=== PATIENT | male | born 2000 | race Caucasian/White ===

== ENCOUNTER 2024-09-25 09:40 | Outpatient (CLI) | payer MEDICAID, SELFPAY ==
[2024-09-25 10:19] LABS: Absolute Lymphocyte Count 1.52 X10^3/uL (0.83-4.51); Absolute Neutrophil Count 2.9 X10^3/uL (2.0-7.7); Basophil# 0.02 X10^3/uL; Basophil% 0.4 % (0-1); Eosinophil# 0.04 X10^3/uL; Eosinophils% 0.8 % (0-5); Hematocrit 45.5 % (40-54); Hemoglobin 16.2 g/dL (13.0-16.5); Lymphocyte # 1.52 X10^3/ul (0.83-4.51); Mean Corp Hgb Conc 35.6 g/dL (32-36); Mean Corpuscular Hgb 30.3 pg (27.0-32.0); Mean Corpuscular Volume 85.2 fL (80-94); Mean Platelet Vol. 8.6 fl (6.2-12.0); Monocyte# 0.41 X10^3/uL; Monocyte% 8.4 % (0-10); NRBC Flagged by Analyzer 0 % (0-5); Neutrophil % 59.2 % (47-70); Platelet Count 184 K/mm3 (150-450); RBC Distribution Width CV 12.2 % (11.6-14.6); RBC Distribution Width SD 37.8 fl (35.1-43.9); Red Blood Count 5.34 M/mm3 (4.6-6.2); Reticulocyte Count 0.36 % (0.5-1.5); White Blood Count 4.9 K/mm3 (4.4-11.0)
[2024-09-25 10:22] LABS: Erythrocyte Sedimentation Rate 5 mm/hr (0-20)
[2024-09-25 11:15] LABS: ALB/GLOB Ratio 1.6 RATIO (0.9-2.4); AST(SGOT) 38 U/L (<=37); Alanine Aminotransfer ALT/SGPT 35 U/L (<=46); Albumin, Serum 4.9 g/dL (3.5-5.0); Alkaline Phosphatase 63 U/L (40-129); Anion Gap 13 (5-15); BUN 12 mg/dL (4-19); BUN/Creat Ratio 12.7 RATIO (10-20); Calcium,Total 9.7 mg/dL (7.6-11.0); Carbon Dioxide 23.1 mmol/L (21.0-32.0); Chloride 101 mmol/L (98-108); Creatinine, Serum 0.97 mg/dL (0.70-1.20); EST Glomerular Filtration Rate 112 (>60); Ferritin 273 ng/mL (37-417); Globulin 3.1 g/dL (2.2-4.2); Glucose 86 mg/dL (70-99); Potassium 3.9 mmol/L (3.3-5.1); Sodium Level 138 mmol/L (133-145); Thyroid Stim Hormone (TSH) 0.283 uIU/mL (0.300-4.200); Total Bilirubin 1.04 mg/dL (0.00-1.30); Vitamin B12 484 pg/mL (180-914)
[2024-09-25 11:44] LABS: CRP 3.56 mg/L (0.0-3.0); Iron 198 ug/dL (65-175); LDH 185 U/L (87-241); Magnesium 2.2 mg/dL (1.5-2.2); Phosphorus 1.7 mg/dL (2.7-4.5)
[2024-10-03 10:08] LABS: Alternaria alternata <0.10 kU/L (Class 0); Anti-Mitochondrial AB <20.0 Units (0.0-20.0); Beef <0.10 kU/L (Class 0); Bermuda Grass <0.10 kU/L (Class 0); Bluegrass, Kentucky <0.10 kU/L (Class 0); Cat Hair/Dander, Standard <0.10 kU/L (Class 0); Chocolate <0.10 kU/L (Class 0); Codfish <0.10 kU/L (Class 0); Corn <0.10 kU/L (Class 0); D farinae Mite 0.37 kU/L (Class I); D pteronyssinus 0.25 kU/L (Class 0/I); Dog Epithelia <0.10 kU/L (Class 0); Egg, Whole <0.10 kU/L (Class 0); Elm, American White <0.10 kU/L (Class 0); Milk (Cow) <0.10 kU/L (Class 0); Mouse Urine <0.10 kU/L (Class 0); Mussels <0.10 kU/L (Class 0); Oak, White <0.10 kU/L (Class 0); Peanut <0.10 kU/L (Class 0); Plantain, English <0.10 kU/L (Class 0); Pork <0.10 kU/L (Class 0); Ragweed, Short/Common <0.10 kU/L (Class 0); Salmon <0.10 kU/L (Class 0); Shrimp <0.10 kU/L (Class 0); Soybean <0.10 kU/L (Class 0); Tuna <0.10 kU/L (Class 0); Vitamin D 1,25-Dihydroxy 72.1 pg/mL (24.8-81.5); Wheat <0.10 kU/L (Class 0)
[2024-10-03 19:07] LABS: Albumin 4.3 g/dL (2.9-4.4); Alpha-1-Globulins 0.2 g/dL (0.0-0.4); Alpha-2-Globulins 0.7 g/dL (0.4-1.0); Angiotensin Convert Enzyme 72 U/L (14-82); Anti-Smooth Muscle ABS 6 Units (0-19); Cytoplasmic Ab (C-ANCA) <1:20 titer (Neg:<1:20); Endomysial Antibody IgA Negative (Negative); Gamma Globulin 1.1 g/dL (0.4-1.8); HEPATITIS B SURFACE AG Negative (Negative); Haptoglobin 111 mg/dL (17-317); Hep C Antibodies Non Reactive (Non Reactive); Hepatitis A IgM Antibody Negative (Negative); Hepatitis B Core AB IgM Negative (Negative); IgG, Quant 1117 mg/dL (603-1613); Immunoglobulin A 141 mg/dL (90-386); Immunoglobulin E 79 IU/mL (6-495); Immunoglobulin G, Subclass 1 607 mg/dL (248-810); Immunoglobulin G, Subclass 2 197 mg/dL (130-555); Immunoglobulin G, Subclass 3 62 mg/dL (15-102); Immunoglobulin G, Subclass 4 30 mg/dL (2-96); Immunoglobulin M 82 mg/dL (20-172); PROEL- TOTAL PROTEIN 7.3 g/dL (6.0-8.5); Perinuclear Ab (P-ANCA) <1:20 titer (Neg:<1:20); QNTFERON TB Mitogen Value > 10.00 IU/mL (.); QNTFERON TB Nil Value 0.06 IU/mL (.); QNTFERON TB1+ Ag Value 0.05 IU/mL (.); QNTFERON TB2+ Ag Value 0.06 IU/mL (.); QNTIFERON TB Positive Criteria Negative (Negative); t-Transglutaminase IgA <2 U/mL (0-3)
== END 2024-09-25 23:59 | disposition home or self-care (01) ==
LOC: LAB 09:43
PROVIDERS: PCP Nurse Practitioner Family; Referring Provider Internal Medicine Gastroenterology; Visit Provider Internal Medicine Gastroenterology
DX: K50.90 Crohn's disease, unspecified, without complications (principal)
CPT/HCPCS: 80053; 80074; 82164; 82607; 82652; 82728; 82784; 82785; 82787; 83010; 83516; 83540; 83615; 83735; 84100; 84165; 84443; 85025; 85045; 85652; 86003; 86005; 86037; 86140; 86255; 86334; 86480

== ENCOUNTER → 2024-10-04 | Outpatient (CLI) | payer MEDICAID, SELFPAY ==
[2024-10-06 07:08] LABS: Calprotectin, Stool 27 ug/g (0-120); Fats, Neutral Normal (.); Fats, Total Normal (.)
[2024-10-06 15:08] LABS: Pancreatic Elastase, Fecal > 800 (>200)
== END | disposition home or self-care (01) ==
LOC: LABSPEC 09:47
PROVIDERS: PCP Nurse Practitioner Family; Referring Provider Internal Medicine Gastroenterology; Visit Provider Internal Medicine Gastroenterology
DX: K58.9 Irritable bowel syndrome, unspecified (principal)
CPT/HCPCS: 82274; 82653; 82705; 83630; 83993; 87506

== ENCOUNTER 2024-10-16 10:28 | Day surgery (SDC) | payer MEDICAID, SELFPAY ==
[2024-10-16] VITALS (8 sets, daily range): BP systolic 88–118; BP diastolic 55–87; PULSE 61–117; RESP 12–16; TEMP 36.4–37.1; O2SAT 96–98; BMI 22.6
--- NOTE | 2024-10-16 10:32 | PCM.PRE.AN2 ---
ASA Classification* ASA Classification ASA Classification: 2 Assessment & Plan Anesthesia* Anesthesia Assessment Anesthesia Assessment: Discussed sedation and/or anesthesia options, risks, benefits, and alternatives with patient/parents/legal guardian/POA. Questions invited. The patient/parents/legal guardian/POA seems to understand and agrees to proceed with anesthesia plan. Reviewed the physical assessment, medical history, allergy history and patient home medications list prior to surgery/procedure/anesthetic and documented any changes. Performed airway and anesthesia risk assessments. Anesthesia Type Anesthesia Type: MAC Anesthesia Focused Assessment* Airway Assessment Mouth opens: >3 cm Mallampati Score: II Focused Labs Anesthesia Preop lab: CBC WBC 4.9 K/mm3 (4.4-11.0) 09/25/24 09:51 09/25/24 RBC 5.34 M/mm3 (4.6-6.2) 09/25/24 09:51 09/25/24 Hgb 16.2 g/dL (13.0-16.5) 09/25/24 09:51 09/25/24 Hct 45.5 % (40-54) 09/25/24 09:51 09/25/24 Plt Count 184 K/mm3 (150-450) 09/25/24 09:51 09/25/24 CHEMISTRY Potassium 3.9 mmol/L (3.3-5.1) 09/25/24 09:51 09/25/24 Sodium 138 mmol/L (133-145) 09/25/24 09:51 09/25/24 Magnesium 2.2 mg/dL (1.5-2.2) 09/25/24 09:51 09/25/24 Phosphorus 1.7 mg/dL (2.7-4.5) L 09/25/24 09:51 09/25/24 BUN 12 mg/dL (4-19) 09/25/24 09:51 09/25/24 Creatinine 0.97 mg/dL (0.70-1.20) 09/25/24 09:51 09/25/24 Glucose 86 mg/dL (70-99) 09/25/24 09:51 09/25/24 TSH 0.283 uIU/mL (0.300-4.200) L 09/25/24 09:51 09/25/24 COAG Pre-Assessment Diagnosis/Proposed Procedure Planned Operative Procedure(s): CSCOPE/EGD Anesthesia History Anesthesia History - [employer]: Anesthesia History - [employer] Hx Hospitalization No 10/10/24 16:27 Any Problems With Anesthesia No 10/10/24 16:27 Cholinesterase deficiency No 10/10/24 16:27 You/Your Family Experience No 10/10/24 16:27 fever (hyperthermia) with Relationship Recent Exposure to Contagious Disease Does patient have nerve No 10/10/24 16:27 stimulator Patient instructed to have device shut off --Does patient have Pacemaker or ICD? When Was Last Pacemaker Check QUESTION #4 FULL TEXT: You/Your Family Experience fever (hyperthermia) with Anesthesia Last Oral Intake Last Oral intake: Last Oral Intake NPO since Meds taken in AM with sips of water? Meds patient instructed to take am of surgery PONV PONV - [employer]: PONV - [employer] Female No 10/10/24 16:27 HX of Motion Sickness No 10/10/24 16:27 HX of N/V After Surgery No 10/10/24 16:27 Non-Smoker Yes 10/10/24 16:27 Duration of Surgery greater No 10/10/24 16:27 than 60 minutes Number of Risk Factors 1 10/10/24 16:27 PONV Score Low Risk 10/10/24 16:27 Respiratory Assessment Respiratory Assessment - [employer]: Respiratory Tract Infection Hx - [employer] Hx Respiratory Tract Infection No 10/10/24 16:27 STOP Sleep Apnea STOP Sleep Apnea - [employer]: STOP Sleep Apnea - [employer] Hx Hypertension No 10/10/24 16:27 Hx Sleep Apnea No 10/10/24 16:27 CPAP BIPAP Do you snore loudly (louder No 10/10/24 16:27 than talking or can be heard Do you often feel tired/ No 10/10/24 16:27 fatigued/ sleepy during daytime? Has anyone observed you stop No 10/10/24 16:27 breathing during sleep? STOP Results Negative 10/10/24 16:27 QUESTION #5 FULL TEXT : Do you snore loudly (louder than talking or can be heard through closed doors)? Tobacco Use History Tobacco Use History - [employer]: Tobacco Use History - [employer] Tobacco Use Smoking Status Never smoker 10/10/24 16:27 Hx Tobacco Use No 10/10/24 16:27 Years Smoking Packs Smoked per Day Smoking Cessation Date was within the last 15 years Hx Smoking Cessation Date Hx Smoking Cessation Counseling Hematologic Medial History Hematologic Hx - [employer]: Hematologic Medical Hx - provider contracting consultant Hx of Blood Transfusion No 10/10/24 16:27 Hx of Transfusion in last 3 No 10/10/24 16:27 Months Date of Last Transfusion (if within last 3 months) Ever experience any problems No 10/10/24 16:27 with transfusion(s)? Specify any problems Hx of Preganancy in last 3 N/A 10/10/24 16:27 Months Nurse Filling Out Transfusion DSCHRIBER 10/10/24 16:27 & Questions: Date: 10/10/24 10/10/24 16:27 Time: 16:28 10/10/24 16:27 Patient unable to answer at this time (ie. confused, unrespo /Reproduction History /Reproductive History - [employer]: /Reproductive Hx- [employer] Hx Now No 10/10/24 16:27 Gestational Age (in weeks): EDC: Hx Hx Para Hx Section SAB No 10/10/24 16:27 PFSH Medical History History of steroid therapy Dietary restriction History of colitis History of Crohn's disease History of IBS Gastric reflux Non-smoker Hx of fracture of arm History of ganglion cyst Rheumatoid arthritis Home Medications ?Medication ?Instructions ?Recorded ?Last Taken ?Type cetirizine 10 mg capsule (Zyrtec) 10 mg PO QDAY 09/25/24 Unknown History cholecalciferol (vitamin D3) 1,250 1,250 mcg PO QWEEK 09/25/24 Unknown History mcg (50,000 unit) capsule mesalamine 0.375 gram 1.125 g PO BID 09/25/24 Unknown History capsule,extended release 24 hr nabumetone 500 mg tablet 1,000 mg PO QDAY 09/25/24 Unknown History omeprazole 20 mg capsule,delayed 20 mg PO QDAY 09/25/24 Unknown History release promethazine 12.5 mg tablet 12.5 mg PO Q6H PRN nausea and 09/25/24 Unknown History vomiting rituximab 10 mg/mL See Rx Instructions .Route .COMPLEX 09/25/24 Unknown History concentrate,intravenous ustekinumab 90 mg/mL subcutaneous 90 mg subcut Q5W 09/25/24 Unknown History syringe (Stelara) Allergy/AdvReac Type Severity Reaction Status Date / Time No Known Allergies Allergy Verified 10/10/24 16:25 Family History Sister Anxiety Mother Arthritis Grandmother Arthritis Autoimmune disorder Hypertension Hyperlipemia Grandfather COPD (chronic obstructive pulmonary disease) Aunt Breast cancer Depression Surgical History History of shoulder surgery History of esophagogastroduodenoscopy (EGD) Hx of colonoscopy Social History Smoking Status: Never smoker alcohol intake: never substance use type: marijuana what type of physical activity do you participate in: other details: physical therapy Review of Systems (Anesthesia) ROS Narrative System reviewed and no additional complaints, except as documented.
--- NOTE | 2024-10-16 11:30 | EGD_PTH ---
PATIENT: DIEGO RICE LOC: EN U#:[id number] AGE/SX: 24/M ROOM: RE10/16/[address]: Dr. Hunter Ceja DO : 2000 BED: DIS: 10/16/2024 SPEC #: [id number] RECD: 10/16/24 14:33 STATUS: BRAYAN REJacky #: [id number] MELVIN: 10/16/24 11:[address]: Hunter Ceja DEPT: SURGICAL PATHOLOGY RECD BY: Osmin Kline ENTERED: 10/16/24 14:33 SP TYPE: EGD BIOPSY ARNAV DR: Ana Kan, CAR FERRIER-C Tissues: A - Duodenum, NOS B - Gastric mucous membrane C - COLON BIOPSY Procedures: Immunohistochemical Stains Surgery Specimen Level IV HEADER OPERATION: Colonoscopy, EGD biopsy PRE-OP DIAGNOSIS: Crohn's disease TISSUE SUBMITTED: A- Duodenum biopsy, B- Gastric body biopsy, C- Colonic stricture biopsy MICROSCOPIC DIAGNOSIS A. Small bowel, duodenum, biopsy: * Small bowel mucosa with no pathologic change B. Stomach, gastric body, biopsy: * Oxyntic mucosa with mild chronic inflammation * No morphologic evidence of Helicobacter pylori organisms on H&E or immunostained sections C. Colon, stricture, biopsy: * Benign colonic mucosa with no pathologic change MICROSCOPIC DESCRIPTION Slides are reviewed. These tests were developed and their performance characteristics determined by [facility]. They may not have been cleared or approved by the U.S. Food and Drug Administration. The FDA has determined that such clearance or approval is not necessary. The above immunohistochemical/dualISH markers are ordered and reviewed by the Pathologist. GROSS DESCRIPTION A. Received in formalin in a container labeled with the patient's name, date of , and duodenum biopsy are 2 haley-pink fragments of mucosal tissue, each measuring 0.6 x 0.2 x 0.2 cm. Submitted in toto in A1. B. Received in formalin in a container labeled with the patient's name, date of , and gastric body biopsy are multiple haley-pink fragments of mucosal tissue measuring 0.6 x 0.4 x 0.2 cm in aggregate. Submitted in toto in B1. C. Received in formalin in a container labeled with the patient's name, date of , and colonic stricture biopsy are 3 haley-pink fragments of mucosal tissue ranging from 0.4 x 0.2 x 0.2 cm to 0.5 x 0.4 x 0.3 cm. Submitted in toto in C1. B 10/17/2024 CPT:40643n3,61110
--- NOTE | 2024-10-16 11:32 | PCM.HP.STD ---
HPI - General General Date of Admission: 10/16/24 Date of Service: 10/16/24 Chief Complaint: abdominal pain and crohn's disease HPI Narrative MC RICE, is a 24 M who presents for the evaluation of his crohns disease. *[facility] established 09.25.24 pt presents today to transfer care from [facility]. Pt has a long history of IBD and RA. Pt reports he was diagnosed with RA when he was 3 and is taking Rituximab infusions for this. Pt was diagnosed with IBD around 2018 and is on Mesalamine and Stelara Q5W. Pt reports his last colonoscopy was [id number]. Reports he has flares every few months. Pt reports daily nausea. States that he has alternating bowel movements and states that when he gets constipated that usually means he is about to have a flare. [facility] Medical History History of steroid therapy Dietary restriction History of colitis History of Crohn's disease History of IBS Gastric reflux Non-smoker Hx of fracture of arm History of ganglion cyst Rheumatoid arthritis Home Medications ?Medication ?Instructions ?Recorded ?Last Taken ?Type cetirizine 10 mg capsule (Zyrtec) 10 mg PO QDAY 09/25/24 Unknown History cholecalciferol (vitamin D3) 1,250 1,250 mcg PO QWEEK 09/25/24 Unknown History mcg (50,000 unit) capsule mesalamine 0.375 gram 1.125 g PO BID 09/25/24 10/16/24 History capsule,extended release 24 hr nabumetone 500 mg tablet 1,000 mg PO QDAY 09/25/24 Unknown History omeprazole 20 mg capsule,delayed 20 mg PO QDAY 09/25/24 Unknown History release promethazine 12.5 mg tablet 12.5 mg PO Q6H PRN nausea and 09/25/24 Unknown History vomiting rituximab 10 mg/mL See Rx Instructions .Route .COMPLEX 09/25/24 Unknown History concentrate,intravenous ustekinumab 90 mg/mL subcutaneous 90 mg subcut Q5W 09/25/24 Unknown History syringe (Stelara) Allergy/AdvReac Type Severity Reaction Status Date / Time No Known Allergies Allergy Verified 10/16/24 10:42 Family History Sister Anxiety Mother Arthritis Grandmother Arthritis Autoimmune disorder Hypertension Hyperlipemia Grandfather COPD (chronic obstructive pulmonary disease) Aunt Breast cancer Depression Surgical History History of shoulder surgery History of esophagogastroduodenoscopy (EGD) Hx of colonoscopy Social History Smoking Status: Never smoker alcohol intake: never substance use type: marijuana what type of physical activity do you participate in: other details: physical therapy ROS Constitutional Constitutional: Denies fatigue, fever(s), poor appetite, weight gain or weight loss Gastrointestinal Gastrointestinal: Denies belching, bloating, change in bowel habits, change in stool character, chewing difficulty, coffee ground emesis, constipation, cramping, diarrhea, dyspepsia, dysphagia, early satiety, excessive flatus, fecal incontinence, heartburn, hematemesis, hematochezia, hemorrhoids, loose stools, melena, nausea, odynophagia, rectal bleeding, tenesmus, vomiting or weight changes Vital Signs Vital Signs Vital Signs: 10/16/24 10:45 10/16/24 10:45 Temperature 98.7 F Temperature Source Temporal Pulse Rate 117 H Respiratory Rate 16 Respiratory Pattern Normal Blood Pressure 118/87 H Blood Pressure Mean 97 Blood Pressure Source Monitor Blood Pressure Position Sitting Blood Pressure Location Left Arm Pulse Ox 98 Oxygen Delivery Method Room Air Weight Weight: 171 lb 15.369 oz Body Mass Index (BMI) 22.6 Physical Exam Const alert, oriented x3, no apparent distress and healthy appearing General Appearance: cooperative GI normal to inspection, nondistended, normoactive bowel sounds, soft to palpation, non-tender and non-distended Percussion: normal to percussion Rectal Exam: deferred Assessment & Plan Assessment/Plan (1) Crohn disease: PLAN: Assessment and Plan Assessment and Plan (1) Crohn disease: Status: Acute Plan: Mc is a pleasant 24-year-old with a longstanding history of complicated rheumatoid arthritis which was diagnosed at the age of 3. He is currently on rituximab therapy every 6 months. 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 As per his mother and the patient he has been on biologic therapy and 5-ASA's. As per his mother he has been really struggling with weight loss and maintaining his weight. He stays away from mostly all fiber containing foods. He is not having any rashes, lesion, jaundice, headaches, fatigue and is currently having 1 bowel movement a day. His last ESR was 6 and his CRP was 3. He has no family history of inflammatory bowel disease. He has not had any abdominal surgeries. He has but never been diagnosed with obstruction. He has not been diagnosed with a fistula. He does not have any prior blood per rectum. He does not use any street drugs. Currently at this time he is on rituximab for his rheumatoid arthritis. He also gets intermittent steroids that infusion. He is on Stelara every 5 weeks for his inflammatory bowel disease. He has not had a colonoscopy since 2020. Patient says he enterography is in the past. He has not been diagnosed of any vitamin deficiencies or anemia. 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
--- NOTE | 2024-10-16 12:21 | OP.EGD_ITS ---
Patient Name: Mc Goodson Procedure Date: 10/16/2024 11:43 AM Date of : 2000 Age: 24 Procedure: Upper GI endoscopy Indications: Epigastric abdominal pain, Functional Dyspepsia Providers: Hunter Ceja DO Referring MD: Nati Vasquez Medicines: Monitored Anesthesia Care Patient Profile: This is a 24 year old male. Refer to note in patient chart for documentation of history and physical. Patient has symptoms of chronic epigastric abdominal pain. Complications: No immediate complications. Procedure: Pre-Anesthesia Assessment: - Prior to the procedure, a History and Physical was performed, and patient medications and allergies were reviewed. The patient is competent. The risks and benefits of the procedure and the sedation options and risks were discussed with the patient. All questions were answered and informed consent was obtained. Patient identification and proposed procedure were verified by the physician in the pre-procedure area. Mental Status Examination: alert and oriented. Airway Examination: normal oropharyngeal airway and neck mobility. Respiratory Examination: clear to auscultation. CV Examination: normal. Prophylactic Antibiotics: The patient does not require prophylactic antibiotics. Prior Anticoagulants: The patient has taken no anticoagulant or antiplatelet agents except for NSAID medication. ASA Grade Assessment: II - A patient with mild systemic disease. After reviewing the risks and benefits, the patient was deemed in satisfactory condition to undergo the procedure. The anesthesia plan was to use monitored anesthesia care (MAC). Immediately prior to administration of medications, the patient was re-assessed for adequacy to receive sedatives. The heart rate, respiratory rate, oxygen saturations, blood pressure, adequacy of pulmonary ventilation, and response to care were monitored throughout the procedure. The physical status of the patient was re-assessed after the procedure. After obtaining informed consent, the endoscope was passed under direct vision. Throughout the procedure, the patient's blood pressure, pulse, and oxygen saturations were monitored continuously. The Colonoscope was introduced through the mouth, and advanced to the third part of the duodenum. Small bowel enteroscopy was deemed necessary. The upper GI endoscopy was accomplished without difficulty. The patient tolerated the procedure well. Scope In: 11:50:15 AM Scope Out: 11:53:20 AM Total Procedure Duration Time 0 hours 3 minutes 5 seconds Findings: The examined esophagus was normal. Patchy mildly erythematous mucosa without bleeding was found in the gastric body. Biopsies were taken with a cold forceps for histology. Verification of patient identification for the specimen was done. Estimated blood loss was minimal. Biopsies were taken with a cold forceps for Helicobacter pylori testing. Verification of patient identification for the specimen was done. Estimated blood loss was minimal. Patchy mildly erythematous mucosa without active bleeding and with no stigmata of bleeding was found in the duodenal bulb and in the second portion of the duodenum. Biopsies were taken with a cold forceps for histology. Verification of patient identification for the specimen was done. Estimated blood loss was minimal. Impression: - Normal esophagus. - Erythematous mucosa in the gastric body. Biopsied. - Erythematous duodenopathy. Biopsied. Recommendation: - Discharge patient to home. - Resume previous diet. - Continue present medications. - Await pathology results. Procedure Code(s): --- Professional --- 17744, Small intestinal endoscopy, enteroscopy beyond second portion of duodenum, not including ileum; with biopsy, single or multiple CPT copyright 2021 [employer]. All rights reserved. The codes documented in this report are preliminary and upon certified professional coder review may be revised to meet current compliance requirements. Hunter Ceja DO 10/16/2024 12:21:14 PM This report has been signed electronically. Number of Addenda: 0 Note Initiated On: 10/16/2024 11:43 AM
--- NOTE | 2024-10-16 12:22 | OP.CCLET_ITS ---
10/16/2024 Nati Vasquez Re : Upper GI endoscopy procedure for Mc Goodson Dear Loreta This procedure was performed on Wednesday, October 16, 2024. My impressions and recommendations are as follows: Impressions : - Normal esophagus. - Erythematous mucosa in the gastric body. Biopsied. - Erythematous duodenopathy. Biopsied. Recommendations : - Discharge patient to home. - Resume previous diet. - Continue present medications. - Await pathology results. My findings are described in the full procedure note, which is enclosed. If I can be of further assistance, please feel free to contact me at . Sincerely, Hunter Ceja, 10/16/2024 12:21:14 PM This report has been signed electronically.
--- NOTE | 2024-10-16 12:35 | PCM.POST.ANE ---
Anesthesia: Postop Eval I Current Vital Signs Temperature: 97.6 F Pulse Rate: 62 Blood Pressure: 88/55 Respiratory Rate: 16 Pulse Ox: 97 Oxygen Delivery Method: Room Air Assessment Airway patent: Yes Spontaneous unlabored respirations: Yes Mental status: Asleep nausea: No Vomiting: No Anesthesia Complication: No Fluid Hydration Crystalloid volume administer (ml): 90 Total IV fluid infused: 90 Progress Note Anesthesia document: Postop Eval 1 completed: Yes
--- NOTE | 2024-10-16 13:02 | OP.CCLET_ITS ---
10/16/2024 Nati Vasquez Re : Colonoscopy procedure for Mc Goodson Dear Loreta This procedure was performed on Wednesday, October 16, 2024. My impressions and recommendations are as follows: Impressions : - Stricture in the cecum. Biopsied. Recommendations : - Discharge patient to home. - Resume previous diet. - Continue present medications. - Await pathology results. - Repeat colonoscopy for surveillance based on pathology results. My findings are described in the full procedure note, which is enclosed. If I can be of further assistance, please feel free to contact me at . Sincerely, Hunter Ceja, 10/16/2024 1:01:34 PM This report has been signed electronically.
--- NOTE | 2024-10-16 13:02 | OP.COLON_ITS ---
Patient Name: Mc Goodson Procedure Date: 10/16/2024 11:53 AM Date of : 2000 Age: 24 Procedure: Colonoscopy Indications: Crohn's disease of the small bowel and colon Providers: Hunter Ceja DO Referring MD: Nati Vasquez Medicines: Monitored Anesthesia Care Patient Profile: This is a 24 year old male. Refer to note in patient chart for documentation of history and physical. Patient has symptoms of chronic epigastric abdominal pain. Last Colonoscopy: more than 3 years ago. Complications: No immediate complications. Procedure: Pre-Anesthesia Assessment: - Prior to the procedure, a History and Physical was performed, and patient medications and allergies were reviewed. The patient is competent. The risks and benefits of the procedure and the sedation options and risks were discussed with the patient. All questions were answered and informed consent was obtained. Patient identification and proposed procedure were verified by the physician in the pre-procedure area. Mental Status Examination: alert and oriented. Airway Examination: normal oropharyngeal airway and neck mobility. Respiratory Examination: clear to auscultation. CV Examination: normal. Prophylactic Antibiotics: The patient does not require prophylactic antibiotics. Prior Anticoagulants: The patient has taken no anticoagulant or antiplatelet agents except for NSAID medication. ASA Grade Assessment: II - A patient with mild systemic disease. After reviewing the risks and benefits, the patient was deemed in satisfactory condition to undergo the procedure. The anesthesia plan was to use monitored anesthesia care (MAC). Immediately prior to administration of medications, the patient was re-assessed for adequacy to receive sedatives. The heart rate, respiratory rate, oxygen saturations, blood pressure, adequacy of pulmonary ventilation, and response to care were monitored throughout the procedure. The physical status of the patient was re-assessed after the procedure. After I obtained informed consent, the scope was passed under direct vision. Throughout the procedure, the patient's blood pressure, pulse, and oxygen saturations were monitored continuously. The Colonoscope was introduced through the anus and advanced to the cecum, identified by appendiceal orifice and ileocecal valve. The colonoscopy was performed without difficulty. The patient tolerated the procedure well. The quality of the bowel preparation was adequate. The ileocecal valve, appendiceal orifice, and rectum were photographed. Scope In: 11:55:18 AM Scope Withdrawal Time 0 hours 10 minutes 39 seconds Scope Out: 12:14:36 PM Total Procedure Duration Time 0 hours 19 minutes 18 seconds Findings: The perianal and digital rectal examinations were normal. A benign-appearing, intrinsic severe stenosis measuring 5 cm (in length) x 6 mm (inner diameter) was found in the cecum and was non-traversed. Biopsies were taken with a cold forceps for histology. Verification of patient identification for the specimen was done. Estimated blood loss was minimal. Impression: - Stricture in the cecum. Biopsied. Recommendation: - Discharge patient to home. - Resume previous diet. - Continue present medications. - Await pathology results. - Repeat colonoscopy for surveillance based on pathology results. Procedure Code(s): --- Professional --- 28494, Colonoscopy, flexible; with biopsy, single or multiple CPT copyright 2021 [employer]. All rights reserved. The codes documented in this report are preliminary and upon insurance coder review may be revised to meet current compliance requirements. Hunter Ceja DO 10/16/2024 1:01:34 PM This report has been signed electronically. Number of Addenda: 0 Note Initiated On: 10/16/2024 11:53 AM
== END 2024-10-16 13:24 | disposition home or self-care (01) ==
LOC: EN 10:31 → AC 10:31
PROVIDERS: PCP Nurse Practitioner Family; Referring Provider Nurse Practitioner Family; Visit Provider Internal Medicine Gastroenterology
PROC: 0DJD8ZZ Inspection of Lower Intestinal Tract, Via Natural or Artificial Opening Endoscopic (ICD-10-PCS; CPT 45378; principal; 2024-10-16 11:25)
DX: K50.812 Crohn's disease of both small and large intestine with intestinal obstruction (principal); M06.9 Rheumatoid arthritis, unspecified; K31.89 Other diseases of stomach and duodenum; K30 Functional dyspepsia; K21.9 Gastro-esophageal reflux disease without esophagitis; Z79.620 Long term (current) use of immunosuppressive biologic; Z79.899 Other long term (current) drug therapy
CPT/HCPCS: 45380; 44361; 88305; 88342; J2405

== ENCOUNTER → 2024-11-08 | Outpatient (CLI) | payer MEDICAID, SELFPAY ==
--- NOTE | 2024-11-08 09:46 | MRI_ITS ---
PROCEDURE: ENTEROGRAPHY ABD/PEL, 11/08/2024 REASON FOR EXAM: K50.90 - CROHN'S DISEASE, UNSPECIFIED, WITHOUT COMPLICATIONS TECHNIQUE: Multisequence multiplanar MRI of the abdomen and pelvis was performed with and without IV contrast. IV contrast: 16 mL Clariscan PO contrast: Administered; type and dose information not provided. COMPARISON: 03/25/2020 FINDINGS: Variable overall mild motion limitation. A few sequences are moderately motion degraded. Note that the exam was optimized for evaluation of the bowel rather than the remaining abdominopelvic viscera. Note also that dynamic T2 and diffusion sequences were note that not performed. Incompletely imaged prostate and anal canal on most sequences. Perianal region and surrounding tissues not imaged on most sequences. Small portion of the stomach extends above the field of view of most sequences. Colonic prep is poor with retained stool. Liver: Grossly unremarkable as imaged. Spleen: Grossly unremarkable as imaged. Gallbladder/biliary: Suspect layering sludge within the gallbladder.. Pancreas: Unremarkable. Adrenals: Unremarkable. Kidneys: Unremarkable. Bowel: No convincing areas of abnormal bowel wall thickening, mural stratification, hyperemia, or dilatation. No findings to suggest fistulization or abscess. Grossly similar focal stool ball associated with the base of the cecum measuring roughly 6.6 x 3.7 x 3.9 cm allowing for technical differences. No abnormal wall thickening in the region identified. Unremarkable appendix. Lymph nodes: Unremarkable. Vasculature: Unremarkable. Peritoneum: Unremarkable. Bladder: Unremarkable. Reproductive Organs: Grossly unremarkable as imaged. Body Wall: Unremarkable. Bones: Unremarkable. MRI/Enterography Abd/Pel IMPRESSION: 1. No convincing MRI evidence of inflammatory bowel disease. 2. Grossly similar 6.6 cm stool ball associated with the base of the cecum comp ared with 03/25/2020, of uncertain significance. This would be optimally evaluated endoscopically. 3. Additional description as above. Reading Location: [id number]
[2024-11-08 10:19] VITALS: BP 129/74; PULSE 87; RESP 18; O2SAT 100; BMI 23.1
[2024-11-08] MEDS: Glucagon 1 MG/ML Syringe IV (11:37)
[2024-11-08] MEDS: 0.9% Saline Lock 10 ML Syringe IV (11:37)
[2024-11-08 12:05] VITALS: BP 111/79; PULSE 78; RESP 16; O2SAT 97
== END | disposition home or self-care (01) ==
LOC: MRI 09:35
PROVIDERS: PCP Nurse Practitioner Family; Referring Provider Internal Medicine Gastroenterology; Visit Provider Internal Medicine Gastroenterology
DX: K50.90 Crohn's disease, unspecified, without complications (principal)
CPT/HCPCS: 74183; 96374; A9575; A4216; J1610

== ENCOUNTER 2025-04-18 18:43 | Emergency (ER) | payer MEDICAID, SELFPAY ==
[2025-04-18 18:43] VITALS: BP 117/66; PULSE 68; RESP 18; TEMP 36.9; O2SAT 100; BMI 23.4
--- NOTE | 2025-04-18 20:13 | EX.ED.DYSGE1 ---
HPI History of Present Illness Chief Complaint: Abd Pain Narrative Narrative: Chief complaint and HPI: 24-year-old male with past medical history of Crohn's disease and rheumatoid arthritis on rituximab and Stelara who presents for evaluation of abdominal pain. Patient states he usually has diarrhea however became more constipated today with abdominal pain. Associated symptom is nausea and vomiting. He states this feels like a typical Crohn's flare. He denies any fever, chills, shortness of breath, chest pain, dysuria. Ate this morning. Follows with Dr. Ceja. 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 States he has had it for years. States they are having discussion about leaving it versus surgery. Does smoke marijuana. Review of systems: See HPI Medications: As listed on the chart Allergies: As listed on the chart PFSH: Per chart Vital signs: As listed on the chart. Reviewed. Physical exam: Gen: A&O x3, NAD Head: Normocephalic, atraumatic Eyes: No sclera icterus, conjunctiva clear ENT: Dry mucous membranes CV: RRR, no murmurs Resp: Lungs CTA BL, no w/r/c GI: Abd soft, non-distended, mildly tender to palpation diffusely, no r/r/g Musc: Full ROM, no deformity Skin: Warm, dry Neuro: Alert, oriented, grossly intact, sensation intact Psych: Cooperative, appropriate mood and affect [facility] Medical History History of steroid therapy Dietary restriction History of colitis History of Crohn's disease History of IBS Gastric reflux Non-smoker Hx of fracture of arm History of ganglion cyst Rheumatoid arthritis Home Medications Medication Instructions Recorded Last Taken Type cetirizine 10 mg capsule (Zyrtec) 10 mg PO QDAY 09/25/24 Unknown History cholecalciferol (vitamin D3) 1,250 1,250 mcg PO QWEEK 09/25/24 Unknown History mcg (50,000 unit) capsule nabumetone 500 mg tablet 1,000 mg PO QDAY 09/25/24 Unknown History omeprazole 20 mg capsule,delayed 20 mg PO QDAY 09/25/24 Unknown History release promethazine 12.5 mg tablet 12.5 mg PO Q6H PRN nausea and 09/25/24 Unknown History vomiting rituximab 10 mg/mL See Rx Instructions .Route .COMPLEX 09/25/24 Unknown History concentrate,intravenous ustekinumab 90 mg/mL subcutaneous 90 mg subcut Q5W 09/25/24 Unknown History syringe (Stelara) mesalamine 0.375 gram 0.75 g (2 x 0.375 gram) PO TID 11/17/24 Unknown Rx capsule,extended release 24 hr #540 caps Allergy/AdvReac Type Severity Reaction Status Date / Time No Known Allergies Allergy Verified 04/18/25 18:43 Family History Sister Anxiety Mother Arthritis Grandmother Arthritis Autoimmune disorder Hypertension Hyperlipemia Grandfather COPD (chronic obstructive pulmonary disease) Aunt Breast cancer Depression Surgical History History of shoulder surgery History of esophagogastroduodenoscopy (EGD) Hx of colonoscopy Social History Smoking Status: Never smoker alcohol intake: never substance use type: marijuana what type of physical activity do you participate in: other details: physical therapy EXAM Physical Exam Const Vital Signs: 04/18/25 18:43 04/18/25 20:43 04/18/25 22:00 Temperature 98.4 F Temperature Source Oral Pulse Rate 68 72 88 Respiratory Rate 18 16 16 Blood Pressure 117/66 127/70 H 120/70 Blood Pressure Mean 83 89 86 Pulse Ox 100 100 98 Oxygen Delivery Method Room Air MDM MDM MDM Narrative Medical decision making narrative: 24-year-old male with past medical history of Crohn's disease and rheumatoid arthritis on rituximab and Stelara who presents for evaluation of abdominal pain. Patient states he usually has diarrhea however became more constipated today with abdominal pain. Associated symptom is nausea and vomiting. He states this feels like a typical Crohn's flare. Follows with Dr. Ceja. 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 States he has had it for years. States they are having discussion about leaving it versus surgery. On chart review, patient had a colonoscopy with Dr. Ceja on 10/16/2024. Showed stricture in the cecum. He had an EGD as well that showed erythematous mucosa and erythematous duodenum. Patient states he cannot take steroids as he has bad reactions. Differential diagnosis includes but is not limited to Crohn's flare, gastroenteritis, colitis, obstruction, constipation, UTI, pancreatitis. NS bolus, morphine, Zofran ordered. CBC shows mild leukocytosis of 14.4. No anemia. CMP relatively unremarkable. Lactic unremarkable. Lipase unremarkable. UA is negative for UTI. CT abdomen pelvis shows focal lobulated density within the cecum with moderate cecal wall thickening. This could represent inspissated stool. The cecal wall thickening could represent nonspecific colitis or typhlitis. This correlates with the patient's known history and colonoscopy findings. On reevaluation, patient's pain has improved. I spoke with Dr. Ceja and consults. Plan is to start him on antibiotics for possible typhlitis. Follow-up in his office. Return precautions explained. Will give Zofran as needed for nausea and vomiting. Patient confirmed understand the plan. Patient was discharged home. First dose of Augmentin given here in the emergency department. Impression: 1. Typhlitis 2. History of Crohn's disease Lab Data Labs: Laboratory Results - last 24 hr 04/18/25 04/18/25 20:20 21:52 WBC 14.4 H RBC 5.11 Hgb 15.3 Hct 44.0 MCV 86.1 MCH 29.9 MCHC 34.8 RDW Std Deviation 38.0 RDW Coeff of Fredis 11.9 Plt Count 234 MPV 9.2 Immature Gran % (Auto) 0.300 Neut % (Auto) 89.5 H Lymph % (Auto) 5.9 L Josephine % (Auto) 3.9 Eos % (Auto) 0.1 Baso % (Auto) 0.3 Absolute Neuts (auto) 12.9 H Absolute Lymphs (auto) 0.85 Nucleated RBC % 0 Sodium 137 Potassium 3.6 Chloride 101 Carbon Dioxide 23.0 Anion Gap 13 BUN 12 Creatinine 0.90 Estim Creat Clear Calc 143.03 Est GFR (MDRD) Non-Af 122 BUN/Creatinine Ratio 13.4 Glucose 107 H Lactic Acid 1.1 Calcium 10.0 Total Bilirubin 0.82 AST 24 ALT 23 Alkaline Phosphatase 58 Total Protein 7.3 Albumin 4.6 Globulin 2.7 Albumin/Globulin Ratio 1.7 Lipase 19 Urine Color Yellow Urine Clarity Sl. Cloudy Urine pH 7.0 Ur Specific [place] 1.010 Urine Protein 30 H Urine Glucose (UA) Normal Urine Ketones 50 H Urine Occult Blood Negative Urine Nitrite Negative Urine Bilirubin Negative Urine Urobilinogen 1 H Ur Leukocyte Esterase Negative Urine RBC 0 SEEN Urine WBC 0 SEEN Ur Squamous Epith Cells 0-5 SEEN Urine Bacteria 1+ Urine Mucus 0 SEEN Radiography Diagnostic Testing: Clinical Impression(s) from Imaging Studies Abdomen/Pelvis CT 04/18/25 20:20 IMPRESSION: Focal lobulated density within the cecum with moderate cecal wall thickening. This could represent inspissated stool. The cecal wall thickening could represent nonspecific colitis or typhlitis. No other acute process is identified. Reading Location: [facility] Discharge Plan Triage Chief Complaint: Abd Pain ED Provider: Kareem López Dx/Rx/DC Orders Prescriptions: No Action Zyrtec 10 mg capsule 10 mg PO QDAY nabumetone 500 mg tablet 1,000 mg PO QDAY omeprazole 20 mg capsule,delayed release(DR/EC) 20 mg PO QDAY cholecalciferol (vitamin D3) 1,250 mcg (50,000 unit) capsule 1,250 mcg PO QWEEK Stelara 90 mg/mL syringe 90 mg subcut Q5W promethazine 12.5 mg tablet 12.5 mg PO Q6H PRN (Reason: nausea and vomiting) rituximab 10 mg/mL concentrate See Rx Instructions .ROUTE .COMPLEX Rx Instructions: 783.6mg in NaCl .9% 195.9mL infusion once every 6 months, then 2 weeks later; mesalamine 0.375 gram capsule,extended release 24hr 0.75 g PO TID Qty: 540 2RF Primary Care Provider: Ana Kan NP Referrals: Ana Kan NP, [employer] [Primary Care Provider, Medical] Print Language: Turkish
--- NOTE | 2025-04-18 20:14 | ED.RN ---
Pt and mother angry, state no one has been in room since they arrived. This RN attempted to reassure them that multiple staff had been in room since arrival including this RN. Mother states she does not feel this RN did an adequate assessment since I did not ask enough questions about health history and obtain complete home medication list. Mother demands a doctor assess pt immediately since he is in pain. Pt had come to ED by private vehicle and ambulated into department but had left due to wait for ED room and called 911. This RN attempted to explain the doctor's were caring for critical pts in the busy dept but mother remained upset.
[2025-04-18] MEDS: 0.9% Normal Saline (1000mL) 1,000 ML 999 ML IV (20:15)
--- NOTE | 2025-04-18 20:20 | CT_ITS ---
PROCEDURE: ABDOMEN/PELVIS W IV CONT ONLY 04/18/2025 REASON FOR EXAM: ABDOMINAL PAIN, HISTORY OF CROHN'S TECHNIQUE: Procedure Code: [id number] Modality: CT Procedure: ABDOMEN/PELVIS W IV CONT ONLY Coronal and Sagittal reconstruction series were provided. CONTRAST: VOLUME: mL One or more dose reduction techniques were used (e.g., Automated exposure control, adjustment of the mA and/or kV according to patient size, use of iterative reconstruction technique. FINDINGS: The visualized lung bases are clear. The liver, gallbladder, pancreas, spleen, adrenal glands, kidneys, and urinary bladder appear unremarkable. A focus of lobulated high density material is noted within the cecum, with moderate wall thickening. No adjacent fat stranding. No evidence of a bowel obstruction. No bowel wall thickening. The appendix is visualized and unremarkable. No intraperitoneal free air or free fluid. No abdominal nor pelvic lymphadenopathy. No acute osseous abnormality. No acute fracture. Mild levoconvex lumbar scoliosis. CT/Abdomen/Pelvis W IV Cont ONLY IMPRESSION: Focal lobulated density within the cecum with moderate cecal wall thickening. This could represent inspissated stool. The cecal wall thickening could represent nonspecific colitis or typhlitis. No other acute process is identified. Reading Location: [id number]
--- OUTSIDE RECORDS SUMMARY | 2025-04-18 20:31 | XMS RPT_ITS | CCD ---
Author Organization [facility] CliniSymn Care Team Providers Care Sensor Specialist Name Role Phone DORA LAYTON Unavailable Unavaila ble Straface, Liv Unavailable Unavailable PROVIDER, UNKNOWN Unavailable Unavailable Trishannon, Nick Unavailable Unavailable Mildred Laco CODE NUMBER STAMPER-MANAGER FRONT OFFICE, Mary Kay E Unavailable Arlette Le DO Primary Care Provider Mildred Laco CODE NUMBER STAMPER-MANAGER FRONT OFFICE, Mary Kay E Unavailable Trill CODE NUMBER STAMPER-MANAGER FRONT OFFICE, Nick C Primary Care Provider Mildred Laco CODE NUMBER STAMPER-MANAGER FRONT OFFICE, Mary Kay E Unavailable Trill CODE NUMBER STAMPER-MANAGER FRONT OFFICE, Nick C Primary Care Provider Mildred Laco CODE NUMBER STAMPER-MANAGER FRONT OFFICE, Mary Kay E Unavailable Trill CODE NUMBER STAMPER-MANAGER FRONT OFFICE, Nick C Primary Care Provider DORA KATE Referring Unavailable TRILL, NICK C Primary Care Unavailable TRILL, NICK C Primary Care Unavailable TRISHANNON, NICK C Attending Unavailable TRISHANNON, NICK C Primary Care Unavailable TRISHANNON, NICK C Primary Care Unavailable DORA KATE Referring Unavailable TRISHANNON, NICK Rojo Primary Care Unavailable DORA KATE Referring Unavailable WESLEY, NICK Rojo Primary Care Unavailable DORA KATE Referring Unavailable Dr. Hunter Ceja DO Attending Provider Wesley LIVE OUT NANNY-CNick Primary Care Provider Wesley LIVE OUT NANNY-CNick Referring Provider Friend Dr. Hunter ROBERTS Referring Provider Dr. Hunter Ceja DO Other Provider TRILL, NICK C Primary Care Unavailable MADISON FAGAN Attending Unavail able TRILL, NICK C Referring Unavailable TRILL, NICK C Primary Care Unavailable COOK, DORA Attending Unavailable COOK, DORA Referring Unavailable TRILL, NICK C Primary Care Unavailable COOK, DORA Attending Unavailable COOK, DORA Referring Unavailable COOK, DORA Attending Unavailable COOK, DORA Referring Unavailable TRILL, NICK C Primary Care Unavailable COOK, DORA Attending Unavailable COOK, DORA Referring Unavailable TRILL, NICK C Primary Care Unavailable COOK, DORA Attending Unavailable TRILL, NICK C Referring Unavailable TRILL, NICK C Primary Care Unavailable COOK, DORA Attending Unavailable TRILL, NICK C Referring Unavailable TRILL, NICK C Primary Care Unavailable MADISON FAGAN Attending Unavail able REFERRED, SELF Referring Unavailable TRILL, NICK C Primary Care Unavailable TRILL, NICK C Primary Care Unavailable COOK, DORA Attending Unavailable TRILL, NICK C Referring Unavailable COOK, DORA Referring Unavailable COOK, DORA Attending Unavailable TRILL, NICK C Primary Care Unavailable COOK, DORA Referring Unavailable COOK, DORA Attending Unavailable TRILL, NICK C Primary Care Unavailable COOK, DORA Attending Unavailable TRILL, NICK C Primary Care Unavailable TRILL, NICK C Referring Unavailable Trill LIVE OUT NANNY, Nick Primary Care Unavailable Trill LIVE OUT NANNY, Nick Referring Unavailable Friend, Hunter Attending Unavailable Friend, Hunter Attending Unavailable Friend, Hunter Referring Unavailable Trill LIVE OUT NANNY, Nick Primary Care Unavailable Friend, Hunter Attending Unavailable Friend, Hunter Referring Unavailable Trill LIVE OUT NANNY, Nick Primary Care Unavailable Trill LIVE OUT NANNY, Nick Primary Care Unavailable Friend, Hunter Referring Unavailable Friend, Hunter Attending Unavailable Friend, Hunter Attending Unavailable Trill LIVE OUT NANNY, Nick Referring Unavailable Trill LIVE OUT NANNY, Nick Primary Care Unavailable Trill LIVE OUT NANNY, Nick Primary Care Unavailable Friend, Hunter Attending Unavailable Trill LIVE OUT NANNY, Nick Referring Unavailable Trill LIVE OUT NANNY, Nick Primary Care Unavailable Friend, Hunter Consulting Unavailable Friend, Hunter Attending Unavailable Trill LIVE OUT NANNY, Nick Referring Unavailable Medications Current Medications Medication Drug Class(es) Dates Sig (Normalized) Sig (Original) celecoxib 200 mg oral capsule (2 sources) Nonsteroidal Anti-inflammatory Drug Start: 11-06-2021 take 1 capsule by mouth twice daily celecoxib (CELEBREX) 200 MG capsule TAKE 1 CAPSULE BY MOUTH TWICE DAILY 60 Capsule 2 11/06/2021 Active cetirizine hydrochloride 10 mg oral capsule (5 sources) Histamine-1 Receptor Antagonist Start: 09-25-2024 take 1 capsule by mouth once daily Cetirizine (Zyrtec) 10 mg capsule Active 10 mg PO daily September 25, 2024 12:00am Start: 09-19-2024 take 1 tablet by elijah th once daily cetirizine (ZYRTEC) 10 MG tablet Take 1 Tablet (10 mg) by mouth daily 09/19/2024 Active cholecalciferol 1.25 mg oral capsule (3 sources) Vitamin D Start: 09-25-2024 take 1 capsule by mouth every week Cholecalciferol (Vitamin D3) 1,250 mcg (50,000 unit) capsule Active 1250 ug PO EVERY WEEK September 25, 2024 12:00am ergocalciferol 1.25 mg oral capsule (8 sources) Provitamin D2 Compound Start: 07-17-2024 take 1 capsule by mouth every week vitamin D (ERGOCALCIFEROL) 1.25 MG (77482 UT) capsule TAKE 1 CAPSULE BY MOUTH ONCE A WEEK 12 Capsule 07/17/2024 Active Start: 12-20-2023 vitamin D (ERG OCALCIFEROL) 1.25 MG (30152 UT) capsule TAKE 1 CAPSULE BY MOUTH EVERY 7 DAYS 12 Capsule 12/20/2023 Active Start: 08-31-2023 vitamin D (ERG OCALCIFEROL) 1.25 MG (22289 UT) capsule TAKE 1 CAPSULE BY MOUTH EVERY 7 DAYS 12 Capsule 08/31/2023 Active Start: 01-01-2023 vitamin D (ERG OCALCIFEROL) 1.25 MG (35688 UT) capsule Take 1 Capsule (50,000 Units) by mouth every 7 days 12 Capsule 0 01/01/2023 Active Start: 07-29-2022 vitamin D (ERG OCALCIFEROL) 1.25 MG (49024 UT) capsule Take 1 Capsule (50,000 Units) by mouth every 7 days 12 Capsule 0 07/29/2022 Active 24 hr mesalamine 375 mg extended release oral capsule (13 sources) Aminosalicylate Start: 09-07-2024 take 1 capsule by mouth twice daily Mesalamine 0.375 gram capsule,extended release 24hr Active 1.125 g PO TWICE A DAY September 25, 2024 12:00am Start: 03-14-2024 take 2 capsules by m outh twice daily mesalamine (APRISO) 0.375 g CP24 SR capsule TAKE 2 CAPSULES BY MOUTH TWICE DAILY 120 Capsule 5 03/14/2024 Active Start: 08-31-2023 take 2 capsules by m outh twice daily mesalamine (APRISO) 0.375 g CP24 SR capsule TAKE 2 CAPSULES BY MOUTH TWICE DAILY 120 Capsule 5 08/31/2023 Active Start: 09-09-2022 take 2 capsules by m outh twice daily mesalamine (APRISO) 0.375 g CP24 SR capsule TAKE 2 (TWO) CAPSULES BY MOUTH TWICE DAILY 120 Capsule 5 09/09/2022 Active Start: 04-08-2022 take 2 capsules by m outh twice daily mesalamine (APRISO) 0.375 g CP24 SR capsule TAKE 2 CAPSULES BY MOUTH BID 120 Capsule 5 04/08/2022 Active Start: 10-20-2021 take 4 capsules by m outh once daily mesalamine (APRISO) 0.375 g CP24 SR capsule TAKE 4 CAPSULES BY MOUTH DAILY 120 Capsule 3 10/20/2021 Active nabumetone 500 mg oral tablet (11 sources) Nonsteroidal Anti-inflammatory Drug Start: 09-25-2024 take 1 tablet by mouth once daily Nabumetone 500 mg tablet Active 1000 mg PO daily September 25, 2024 12:00am Start: 08-10-2024 take 2 tablets by mo uth once daily nabumetone (RELAFEN) 500 MG tablet TAKE 2 TABLETS BY MOUTH DAILY 120 Tablet 2 08/10/2024 Active Start: 02-14-2024 take 2 tablets by mo uth once daily nabumetone (RELAFEN) 500 MG tablet Take 2 Tablets (1,000 mg) by mouth daily 120 Tablet 2 02/14/2024 Active Start: 08-02-2023 take 2 tablets by mo uth once daily nabumetone (RELAFEN) 500 MG tablet Take 2 Tablets (1,000 mg) by mouth daily 120 Tablet 2 08/02/2023 Active Start: 02-02-2023 take 2 tablets by mo uth once daily nabumetone (RELAFEN) 500 MG tablet Take 2 Tablets (1,000 mg) by mouth daily 120 Tablet 2 02/02/2023 Active Start: 08-27-2022 take 2 tablets by mo uth once daily nabumetone (RELAFEN) 500 MG tablet Take 2 Tablets (1,000 mg) by mouth daily 120 Tablet 2 08/27/2022 Active Nutritional Supplements (BOOST HIGH PROTEIN) LIQD (2 sources) Nutritional Supplements (BOOST HIGH PROTEIN) LIQD Take by mouth 0 Active omeprazole 20 mg delayed release oral capsule (13 sources) Proton Pump Inhibitor Start: take 1 capsule by mouth once daily Omeprazole 20 mg capsule,delayed release(DR/EC) Active 20 mg PO daily September 25, 2024 12:00am Start: 01-17-2024 take 1 capsule by mo uth once daily omeprazole (PRILOSEC) 20 MG capsule Take 1 Capsule (20 mg) by mouth daily 30 Capsule 5 01/17/2024 Active Start: 09-03-2023 take 1 capsule by mo uth once daily omeprazole (PRILOSEC) 20 MG capsule Take 1 Capsule (20 mg) by mouth daily 30 Capsule 3 09/03/2023 Active Start: 01-01-2023 take 1 capsule by mo uth twice daily omeprazole (PRILOSEC) 20 MG capsule TAKE 1 CAPSULE BY MOUTH TWICE DAILY 60 Capsule 3 01/01/2023 Active Start: 06-01-2022 take 1 capsule by mo uth twice daily omeprazole (PRILOSEC) 20 MG capsule take 1 (ONE) capsule by mouth twice daily 60 Capsule 3 06/01/2022 Active Start: 08-25-2021 take 1 capsule by mo uth twice daily omeprazole (PRILOSEC) 20 MG capsule TAKE 1 CAPSULE BY MOUTH TWICE DAILY 60 Capsule 3 08/25/2021 Active promethazine hydrochloride 12.5 mg oral tablet (13 sources) Phenothiazine Start: 10-24-2021 take 1 tablet by mouth every six hours as needed for nausea and vomiting Promethazine 12.5 mg tablet Active 12.5 mg PO EVERY 6 HOURS as needed for nausea and vomiting September 25, 2024 12:00am 10 ml riTUXimab 10 mg/ml injection (3 sources) [id number] Cytolytic Antibody Start: 09-25-2024 Rituximab 10 mg/mL concentrate Active 0 .ROUTE .COMPLEX September 25, 2024 12:00am 783.6mg in NaCl .9% 195.9mL infusion once every 6 months, then 2 weeks later; sulfaSALAzine 500 mg oral tablet (2 sources) Aminosalicylate Start: 12-05-2020 sulfaSALAzine (AZULFIDINE) 500 MG tablet Take 1 pill twice a day for 3 days then 1 pill in morning and 2 pills in evening for 3 days then take 2 pills twice a day. 120 Tablet 1 12/05/2020 Active tofacitinib 5 mg oral tablet (2 sources) Start: 10-18-2023 take 1 tablet by mouth twice daily Tofacitinib Citrate (XELJANZ) 5 MG TABS Take 1 Tablet (5 mg) by mouth 2 times daily 60 Tablet 2 10/18/2023 Active 1 ml ustekinumab 90 mg/ml prefilled syringe (13 sources) Interleukin-12 Antagonist, Interleukin-23 Antagonist Start: 06-29-2024 Ustekinumab (Stelara) 90 mg/mL syringe Active 90 mg SC every 5 weeks September 25, 2024 12:00am Start: 02-21-2024 Ustekinumab (S TELARA) 90 MG/ML SOSY SQ INJECT 90MG (1ML) UNDER THE SKIN EVERY 5 WEEKS 1 mL 2 03/07/2024 11:20 AM EDT 02/21/2024 Active Start: 08-02-2023 Ustekinumab (S TELARA) 90 MG/ML SOSY SQ INJECT 90MG (1ML) UNDER THE SKIN EVERY 5 WEEKS 1 mL 2 08/02/2023 Active Start: 01-04-2023 Ustekinumab (S TELARA) 90 MG/ML SOSY SQ INJECT 90MG (1ML) UNDER THE SKIN EVERY 5 WEEKS 1 mL 2 01/04/2023 Active Start: 08-10-2022 Ustekinumab (S TELARA) 90 MG/ML SOSY SQ INJECT 90MG (1ML) UNDER THE SKIN EVERY 5 WEEKS 1 mL 3 08/10/2022 Active Start: 05-28-2021 STELARA 90 MG/ ML SOSY SQ MAINTENANCE: INJECT 1 SYRINGE SUBCUTANEOUSLY EVERY 6 WEEKS. REFRIGERATE. DO NOT FREEZE. 1 Each 2 05/28/2021 Active Completed/Discontinued Medications Medication Drug Class(es) Dates Sig (Normalized) Sig (Original) acetaminophen 325 mg oral tablet (4 sources) Start: 10-12-2024 End: 10-13-2024 650 mg (32.2 mg/kg/DAY), Oral, EVERY 6 HOURS, 360 doses, First dose on Wed10/12/24 at 0830, Last dose on Wed01/10/25 at 0000 Start: 09-28-2024 End: 09-29-2024 650 mg (32.3 mg/kg/DAY), Ora l, EVERY 6 HOURS, 360 doses, First dose on Wed09/28/24 at 0930, Last dose on Wed12/27/24 at 0600 Start: 03-30-2024 End: 03-31-2024 650 mg (30.9 mg/kg/DAY), Ora l, EVERY 6 HOURS, 360 doses, First dose on Wed03/30/24 at 0900, Last dose on Wed06/28/24 at 0600 Start: 03-16-2024 End: 03-17-2024 650 mg (31.1 mg/kg/DAY), Ora l, EVERY 6 HOURS, 360 doses, First dose on Wed03/16/24 at 0900, Last dose on Wed06/14/24 at 0600 5 ml bupivacaine hydrochloride 5 mg/ml injection (3 sources) Amide Local Anesthetic Start: 11-01-2023 End: 11-01-2023 Subcutaneous, Intra-op PRN, Starting on Wed11/01/23 at 0947, Until Wed11/01/23 at 0947, Intra-procedure(IR) Start: 08-31-2022 End: 08-31-2022 BUPivacaine (MARCAINE) 0.5 % injection Start: 11-13-2021 End: 11-14-2021 bupivacaine (MARCAINE) 0.5 % injection diphenhydrAMINE hydrochloride 25 mg oral capsule (4 sources) Histamine-1 Receptor Antagonist Start: 10-12-2024 End: 10-12-2024 25 mg (0.31 mg/kg/DOSE), Oral, ONCE, 1 dose, On [facility] 10/12/24 at 0830 Start: 09-28-2024 End: 09-28-2024 25 mg (0.31 mg/kg/DOSE), Ora l, ONCE, 1 dose, On [facility] 09/28/24 at 0930 Start: 03-30-2024 End: 03-30-2024 25 mg (0.297 mg/kg/DOSE), Or al, ONCE, 1 dose, On [facility] 03/30/24 at 0900 Start: 03-16-2024 End: 03-16-2024 25 mg (0.299 mg/kg/DOSE), Or al, ONCE, 1 dose, On [facility] 03/16/24 at 0900 iopamidol (ISOVUE-300) 61 % injection (3 sources) Start: 11-01-2023 End: 11-01-2023 Intra-op PRN, Starting on Mo n 11/01/23 at 0946, Until 11/01/23 at 0946, Radiology Start: 08-31-2022 End: 08-31-2022 iopamidol (ISOVUE-300) 61 % injection Start: 11-13-2021 End: 11-14-2021 iopamidol (ISOVUE-300) 61 % injection IR Buffered Lidocaine 1% mixture (3 sources) Start: 11-01-2023 End: 11-01-2023 Intradermal, Intra-op PRN, S tarting on 11/01/23 at 0946, Until 11/01/23 at 0946, Intra-procedure(IR) Start: 08-31-2022 End: 08-31-2022 IR Buffered Lidocaine 1% mix ture Start: 11-13-2021 End: 11-14-2021 IR Buffered Lidocaine 1% mix ture methylPREDNISolone 125 mg injection (3 sources) Corticosteroid Start: 10-12-2024 End: 10-12-2024 100 mg ONCE (1.24 mg/kg/DOSE), Intravenous, On [facility] 10/12/24 at 0830, For 1 dose Start: 09-28-2024 End: 09-28-2024 100 mg (1.24 mg/kg/DOSE), In travenous, ONCE, 1 dose, On [facility] 09/28/24 at 0930, Administer over 5 Minutes, Use 125mg Act-o-Vial or reconstitute 125mg vial with 2 mL SWFI for final conentration of 62.5 mg/mL and withdraw dose. Start: 03-30-2024 End: 03-30-2024 100 mg ONCE (1.19 mg/kg/DOSE ), Intravenous, On [facility] 03/30/24 at 0900, For 1 dose methylPREDNISolone (SOLU-Med rol) in sterile water IV High CONC 100 mg (1 source) Start: 03-16-2024 End: 03-16-2024 100 mg (1.19 mg/kg/DOSE), Intravenous, ONCE, 1 dose, On [facility] 03/16/24 at 0930, Administer over 3 Minutes riTUXimab-pvvr (RUXIENCE) 1, 000 mg in NaCl 0.9% 250 mL infusion (2 sources) Start: 09-28-2024 End: 09-28-2024 1,000 mg (493 mg/m2/DOSE), Intravenous, ONCE, 1 dose, On [facility] 09/28/24 at 0930, Infuse first dose at an initial rate of 10.1 mL/hr (0.125mL/kg/hr; Max 12.5mL/hr) for the first 30 minutes. If no hypersensitivity, the rate may be increased to 20.2 mL/hr (0.25mL/kg/hr x 30 minutes). If no hypersensitivity, the rate may be increased to 30.2 mL/hr (0.375mL/kg/hr x 30 minutes). If no hypersensitivity, the rate may be increased to 40.3 mL/hr (0.5mL/kg/hr x 30 minutes). If no hypersensitivity, the rate may be increased to 50.4 mL/hr (0.625 mL/kg/hr x 30 minutes). If no hypersensitivity, the rate may be increased to 60.5 mL/hr (0.75mL/kg/hr x 30 minutes). If no hypersensitivity, the rate may be increased to 70.5 mL/hr (0.875mL/kg/hr x 30 minutes). If no hypersensitivity, the rate may be increased to 80.6 mL/hr (1mL/kg/hr x 30 minutes). If no hypersensitivity, the rate may be increased to 100 mL/hr (max rate) Maximum Infusion Rate on the initial infusion is 100 mL/hour (400 mg/hour), If max rate of 100 ml/hour has not been reached continue ramping by 0.25 ml/kg/hour every 30 minutes until the max rate has been reached. Maximum Infusion Rate on the subsequent infusions is 100 mL/hour (400 mg/hour). Pharmacy to ensure rate does not exceed maximum of 100 ml/hour in ramping schedule above. If hypersensitivity or infusion-related reactions occur, slow or interrupt the infusion. If symptoms completely resolve, resume infusion at 50% of the previous rate. If the patient tolerated the first infusion without reactions; subsequent infusions may be administered using the following: Initial rate of 20.2 mL/hr (0.25mL/kg/hr; Max 25mL/hr) for the first 30 minutes. If no hypersensitivity, the rate may be increased to 40.3 mL/hr (0.5mL/kg/hr x 30 minutes). If no hypersensitivity, the rate may be increased to 60.5 mL/hr (0.75mL/kg/hr x 30 minutes). If no hypersensitivity, the rate may be increased to 80.6 mL/hr (1mL/kg/hr x 30 minutes). If no hypersensitivity, the rate may be increased to 100 mL/hr (Max Rate). Maximum Infusion Rate on the subsequent infusions is 100 mL/hour (400 mg/hour). Pharmacy to ensure rate does not exceed maximum of 100 ml/hour in ramping schedule above. If hypersensitivity or infusion-related reactions occur, slow or interrupt the infusion. If symptoms completely resolve, resume infusion at 50% of the previous rate. Start: 03-16-2024 End: 03-16-2024 1,000 mg (483 mg/m2/DOSE), I ntravenous, ONCE, 1 dose, On [facility] 03/16/24 at 0900, Infuse first dose at an initial rate of 10.5 mL/hr (0.125mL/kg/hr; Max 12.5mL/hr) for the first 30 minutes. If no hypersensitivity, the rate may be increased to 20.9 mL/hr (0.25mL/kg/hr x 30 minutes). If no hypersensitivity, the rate may be increased to 31.4 mL/hr (0.375mL/kg/hr x 30 minutes). If no hypersensitivity, the rate may be increased to 41.9 mL/hr (0.5mL/kg/hr x 30 minutes). If no hypersensitivity, the rate may be increased to 52.3 mL/hr (0.625 mL/kg/hr x 30 minutes). If no hypersensitivity, the rate may be increased to 62.8 mL/hr (0.75mL/kg/hr x 30 minutes). If no hypersensitivity, the rate may be increased to 73.2 mL/hr (0.875mL/kg/hr x 30 minutes). If no hypersensitivity, the rate may be increased to 83.7 mL/hr (1mL/kg/hr x 30 minutes). If no hypersensitivity, the rate may be increased to 100 ml/hour.Maximum Infusion Rate on the initial infusion is 100 mL/hour (400 mg/hour), If max rate of 100 ml/hour has not been reached continue ramping by 0.25 ml/kg/hour every 30 minutes until the max rate has been reached. Maximum Infusion Rate on the subsequent infusions is 100 mL/hour (400 mg/hour). Phamacy to ensure rate does not exceed maximum of 100 ml/hour in ramping schedule above. If hypersensitivity or infusion-related reactions occur, slow or interrupt the infusion. If symptoms completely resolve, resume infusion at 50% of the previous rate. If the patient tolerated the first infusion without reactions; subsequent infusions may be administered using the following: Initial rate of 20.9 mL/hr (0.25mL/kg/hr; Max 25mL/hr) for the first 30 minutes. If no hypersensitivity, the rate may be increased to 41.9 mL/hr (0.5mL/kg/hr x 30 minutes). If no hypersensitivity, the rate may be increased to 62.8 mL/hr (0.75mL/kg/hr x 30 minutes). If no hypersensitivity, the rate may be increased to 83.7 mL/hr (1mL/kg/hr x 30 minutes). If no hypersensitivity, the rate may be increased to maximum rate of 100 ml/hr (400 mg/hour). Maximum Infusion Rate on the subsequent infusions is 100 mL/hour (400 mg/hour). Phamacy to ensure rate does not exceed maximum of 100 ml/hour in ramping schedule above. If hypersensitivity or infusion-related reactions occur, slow or interrupt the infusion. If symptoms completely resolve, resume infusion at 50% of the previous rate. riTUXimab-pvvr (RUXIENCE) 761.2 mg in NaCl 0.9% 190.3 mL infusion (1 source) Start: 10-12-2024 End: 10-12-2024 761.2 mg (rounded from 761.2 5 mg = 375 mg/m2/DOSE 2.03 m2), Intravenous, ONCE, 1 dose, On [facility] 10/12/24 at 0830, Infuse first dose at an initial rate of 10.1 mL/hr (0.125mL/kg/hr; Max 12.5mL/hr) for the first 30 minutes. If no hypersensitivity, the rate may be increased to 20.2 mL/hr (0.25mL/kg/hr x 30 minutes). If no hypersensitivity, the rate may be increased to 30.3 mL/hr (0.375mL/kg/hr x 30 minutes). If no hypersensitivity, the rate may be increased to 40.4 mL/hr (0.5mL/kg/hr x 30 minutes). If no hypersensitivity, the rate may be increased to 50.4 mL/hr (0.625 mL/kg/hr x 30 minutes). If no hypersensitivity, the rate may be increased to 60.5 mL/hr (0.75mL/kg/hr x 30 minutes). If no hypersensitivity, the rate may be increased to 70.6 mL/hr (0.875mL/kg/hr x 30 minutes). If no hypersensitivity, the rate may be increased to 80.7 mL/hr (1mL/kg/hr x 30 minutes). If no hypersensitivity, the rate may be increased to 100 mL/hr (1.24mL/kg/hr until the max rate has been reached). Maximum Infusion Rate on the initial infusion is 100 mL/hour (400 mg/hour), If max rate of 100 ml/hour has not been reached continue ramping by 0.25 ml/kg/hour every 30 minutes until the max rate has been reached. Maximum Infusion Rate on the subsequent infusions is 100 mL/hour (400 mg/hour). Pharmacy to ensure rate does not exceed maximum of 100 ml/hour in ramping schedule above. If hypersensitivity or infusion-related reactions occur, slow or interrupt the infusion. If symptoms completely resolve, resume infusion at 50% of the previous rate. If the patient tolerated the first infusion without reactions; subsequent infusions may be administered using the following: Initial rate of 20.2 mL/hr (0.25mL/kg/hr; Max 25mL/hr) for the first 30 minutes. If no hypersensitivity, the rate may be increased to 40.4 mL/hr (0.5mL/kg/hr x 30 minutes). If no hypersensitivity, the rate may be increased to 60.5 mL/hr (0.75mL/kg/hr x 30 minutes). If no hypersensitivity, the rate may be increased to 80.7 mL/hr (1mL/kg/hr x 30 minutes). If no hypersensitivity, the rate may be increased to 100 mL/hr (1.24mL/kg/hr until the max rate has been reached). Maximum Infusion Rate on the subsequent infusions is 100 mL/hour (400 mg/hour). Pharmacy to ensure rate does not exceed maximum of 100 ml/hour in ramping schedule above. If hypersensitivity or infusion-related reactions occur, slow or interrupt the infusion. If symptoms completely resolve, resume infusion at 50% of the previous rate. riTUXimab-pvvr (RUXIENCE) 783.6 mg in NaCl 0.9% 195.9 mL infusion (1 source) Start: 03-30-2024 End: 03-30-2024 783.6 mg (rounded from 783.7 5 mg = 375 mg/m2/DOSE 2.09 m2), Intravenous, ONCE, 1 dose, On [facility] 03/30/24 at 0900, Infuse first dose at an initial rate of 10.5 mL/hr (0.125mL/kg/hr; Max 12.5mL/hr) for the first 30 minutes. If no hypersensitivity, the rate may be increased to 21.1 mL/hr (0.25mL/kg/hr x 30 minutes). If no hypersensitivity, the rate may be increased to 31.6 mL/hr (0.375mL/kg/hr x 30 minutes). If no hypersensitivity, the rate may be increased to 42.1 mL/hr (0.5mL/kg/hr x 30 minutes). If no hypersensitivity, the rate may be increased to 52.6 mL/hr (0.625 mL/kg/hr x 30 minutes). If no hypersensitivity, the rate may be increased to 63.2 mL/hr (0.75mL/kg/hr x 30 minutes). If no hypersensitivity, the rate may be increased to 73.7 mL/hr (0.875mL/kg/hr x 30 minutes). If no hypersensitivity, the rate may be increased to 84.2 mL/hr (1mL/kg/hr x 30 minutes). If no hypersensitivity, the rate may be increased to 100 mL/hr (1.18mL/kg/hr x 30 minutes). Maximum Infusion Rate on the initial infusion is 100 mL/hour (400 mg/hour), If max rate of 100 ml/hour has not been reached continue ramping by 0.25 ml/kg/hour every 30 minutes until the max rate has been reached. Maximum Infusion Rate on the subsequent infusions is 100 mL/hour (400 mg/hour). If hypersensitivity or infusion-related reactions occur, slow or interrupt the infusion. If symptoms completely resolve, resume infusion at 50% of the previous rate. If the patient tolerated the first infusion without reactions; subsequent infusions may be administered using the following: Initial rate of 21.1 mL/hr (0.25mL/kg/hr; Max 25mL/hr) for the first 30 minutes. If no hypersensitivity, the rate may be increased to 42.1 mL/hr (0.5mL/kg/hr x 30 minutes). If no hypersensitivity, the rate may be increased to 63.2 mL/hr (0.75mL/kg/hr x 30 minutes). If no hypersensitivity, the rate may be increased to 84.2 mL/hr (1mL/kg/hr x 30 minutes). If no hypersensitivity, the rate may be increased to 100 mL/hr (1.18mL/kg/hr x 30 minutes). Maximum Infusion Rate on the subsequent infusions is 100 mL/hour (400 mg/hour). If hypersensitivity or infusion-related reactions occur, slow or interrupt the infusion. If symptoms completely resolve, resume infusion at 50% of the previous rate. 1000 ml sodium chloride 9 mg/ml injection (11 sources) Start: 10-12-2024 End: 10-13-2024 1,000 mL CONTINUOUS (12.4 ml/kg/DOSE), Intravenous, at 1,000 mL/hr, Starting on [facility] 10/12/24 at 0830, For 90 days Start: 10-12-2024 End: 10-13-2024 100 mL PRN (1.24 ml/kg/DOSE) , Intravenous, at 0-999 mL/hr, Line Care, Starting on Ema 10/12/24 at 0755, For 90 days, Infuse 30 mL to flush med through tubing Start: 10-12-2024 End: 10-13-2024 2 mL PRN (0.0248 ml/kg/DOSE) , Intravenous, at 0-999 mL/hr, Line Care, Starting on Ema 10/12/24 at 0755 Start: 09-28-2024 End: 09-29-2024 1,000 mL CONTINUOUS (12.4 ml /kg/DOSE), Intravenous, at 1,000 mL/hr, Starting on Wed09/28/24 at 0930, For 90 days Start: 09-28-2024 End: 09-29-2024 100 mL PRN (1.24 ml/kg/DOSE) , Intravenous, at 0-999 mL/hr, Line Care, Starting on Wed09/28/24 at 0850, For 90 days, Infuse 30 mL to flush med through tubing Start: 09-28-2024 End: 09-29-2024 2 mL PRN (0.0248 ml/kg/DOSE) , Intravenous, at 0-999 mL/hr, Line Care, Starting on Wed09/28/24 at 0850 Start: 03-30-2024 End: 03-31-2024 100 mL PRN (1.19 ml/kg/DOSE) , Intravenous, at 0-999 mL/hr, Line Care, Starting on Wed03/30/24 at 0822, For 90 days, Infuse 30 mL to flush med through tubing Start: 03-30-2024 End: 03-31-2024 2 mL PRN (0.0238 ml/kg/DOSE) , Intravenous, at 0-999 mL/hr, Line Care, Starting on Wed03/30/24 at 0822 Start: 03-16-2024 End: 03-17-2024 100 mL PRN (1.19 ml/kg/DOSE) , Intravenous, at 0-999 mL/hr, Line Care, Starting on Ema 03/16/24 at 0830, For 90 days, Infuse 30 mL to flush med through tubing Start: 03-16-2024 End: 03-17-2024 10 mL PRN (0.119 ml/kg/DOSE) , Intravenous, at 0-999 mL/hr, Line Care, Starting on Ema 03/16/24 at 0830 1 ml triamcinolone acetonide 40 mg/ml injection (2 sources) Corticosteroid Start: 11-01-2023 End: 11-01-2023 Intra-articular, Intra-op PRN, Starting on 11/01/23 at 0947, Until Wed11/01/23 at 0947, Intra-procedure(IR) Start: 08-31-2022 End: 08-31-2022 triamcinolone acetonide (BERTHA ALOG-40) injection Triamcinolone Hexacetonide (HEXATRIONE 2%) 20 MG/ML injectable suspension (1 source) Start: 11-13-2021 End: 11-13-2021 Triamcinolone Hexacetonide (HEXATRIONE 2%) 20 MG/ML injectable suspension Problems Active Problems Problem Classification Problem Date Documented Da te Episodic/Chronic Noninfectious gastroenteritis (10 sources) Indeterminate colitis; 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] Onset: 1 11-26-2020 Chronic Nutritional deficiencies (11 sources) Vitamin D deficiency; Translations: [Vitamin D deficiency, unspecified] Onset: 4 Chronic Osteoarthritis (3 sources) Arthritis of left wrist; Translations: [Primary osteoarthritis, left wrist] 08-31-2022 Chronic Other aftercare (16 sources) Long-term current use of 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; Translations: [Other correction (current) drug therapy] Onset: 9 10-20-2018 Episodic Other aftercare (6 sources) 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; Translations: [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 (NSAID)] Onset: 4 03-30-2024 Episodic Other aftercare (4 sources) Other correction (current) drug therapy; Translations: [Encounter for long-term (current) use of other medications] Onset: 4 Episodic Other gastrointestinal disorders (1 source) Irritable bowel syndrome without diarrhea; Translations: [Irritable bowel syndrome, unspecified] Onset: 5 Chronic Other liver diseases (1 source) Elevated liver enzymes level; Translations: [Abnormal levels of other serum enzymes] 02-15-2023 Episodic Regional enteritis and ulcerative colitis (10 sources) Crohn's disease; Translations: [Crohn's disease, unspecified, without complications] Onset: 5 09-25-2024 Chronic Rheumatoid arthritis and related disease (20 sources) Juvenile rheumatoid polyarthritis (seronegative); Translations: [Unspecified juvenile rheumatoid arthritis of unspecified site] Onset: 7 Resolved: 4 Chronic Past or Other Problems Problem Classification Problem Date Documented Da te Episodic/Chronic Abdominal pain (10 sources) Generalized abdominal pain; Translations: [Generalized abdominal pain] Onset: 9 04-06-2019 Episodic Administrative/social admission (10 sources) Follow-up status; Translations: [Other specified counseling] Onset: 1 04-22-2021 Episodic Allergic reactions (3 sources) Unspecified contact dermatitis, unspecified cause; Translations: [Other allergy status, other than to drugs and biological substances] Onset: 7 Episodic Disorders of teeth and jaw (1 source) Arthralgia of bilateral temporomandibular joint; Translations: [Bilateral temporomandibular joint pain] Onset: 4 Episodic Gastrointestinal hemorrhage (1 source) Hemorrhage of anus and rectum; Translations: [Hemorrhage of anus and rectum] Onset: 7 Episodic Immunizations and screening for infectious disease (1 source) Encounter for screening for other viral diseases; Translations: [Encounter for screening for other viral diseases] Onset: 4 Episodic Joint disorders and dislocations; trauma-related (10 sources) Dislocation of joint of upper limb; Translations: [Unspecified dislocation of unspecified shoulder joint, initial encounter] Onset: 6 Resolved: 9 02-03-2019 Episodic Noninfectious gastroenteritis (11 sources) Inflammatory bowel disease; Translations: [Noninfective gastroenteritis and colitis, unspecified] Onset: 9 01-29-2020 Episodic Other aftercare (10 sources) Patient encounter status; Translations: [Encounter for therapeutic drug level monitoring] Onset: 2 04-07-2022 Episodic Other aftercare (2 sources) 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 (NSAID); Translations: [long-term current use of non-steroidal anti-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 (NSAID)] Onset: 4 Episodic Other connective tissue disease (20 sources) Tenosynovitis; Translations: [Synovitis and tenosynovitis, unspecified] Onset: 8 Resolved: 9 10-20-2018 Episodic Other gastrointestinal disorders (10 sources) Diarrhea; Translations: [Diarrhea, unspecified] Onset: 9 05-30-2019 Episodic Other non-traumatic joint disorders (10 sources) Wrist stiff; Translations: [Stiffness of unspecified wrist, not elsewhere classified] Onset: 5 07-22-2017 Episodic Other non-traumatic joint disorders (10 sources) Chronic pain of left upper limb; Translations: [Pain in left shoulder] Onset: 9 02-03-2019 Episodic Other non-traumatic joint disorders (4 sources) Shoulder pain; Translations: [Pain in left shoulder] Onset: 6 Resolved: 0 11-17-2019 Episodic Other non-traumatic joint disorders (10 sources) Pain in right knee; Translations: [Pain in joint, lower leg] Onset: 6 Resolved: 9 10-20-2018 Episodic Other non-traumatic joint disorders (6 sources) Pain in left shoulder; Translations: [Pain in joint, shoulder region] Onset: 6 Resolved: 0 11-17-2019 Episodic Other nutritional; endocrine; and metabolic disorders (16 sources) Weight loss; Translations: [Abnormal weight loss] Onset: 9 Resolved: 0 05-30-2019 Episodic Other nutritional; endocrine; and metabolic disorders (4 sources) Weight decreased; Translations: [Abnormal weight loss] Onset: 9 Resolved: 0 05-30-2019 Episodic Other screening for suspected conditions (not mental disorders or infectious disease) (20 sources) Immune system finding; Translations: [Abnormal immunological findings in specimens from other organs, systems and tissues] Onset: 5 Resolved: 9 10-20-2018 Episodic Other skin disorders (2 sources) Rash and other nonspecific skin eruption; Translations: [Rash and other nonspecific skin eruption] Onset: 7 Episodic Skin and subcutaneous tissue infections (2 sources) Cellulitis of trunk, unspecified; Translations: [Cellulitis of trunk, unspecified] Onset: 7 Episodic Sprains and strains (10 sources) Glenoid labrum tear; Translations: [Superior glenoid labrum lesion of unspecified shoulder, initial encounter] Onset: 6 Resolved: 0 11-17-2019 Episodic Results Test Name Value Interpretation Reference Range Facility Gastroenterology Visit Repor ton 11-17-2024 Gastroenterology Visit Report [facility] Gastroenterology [address] [place] [address] OFFICE VISIT Date of Service: 11/17/24 MR#: [id number] Acct: [id number] Name: MC RICE Rep #: [id number] : 2000 Provider: Hunter Ceja DO Age/Sex: 24/M Location: [facility] Status: Signed Intake Vital Signs 10/16/24 10:45 11/08/24 10:19 11/17/24 08:11 Height 6 ft 1 in 6 ft 1 in 6 ft 1 in Weight: 181 lb BMI 23.8 Intake Visit Reasons: Test Result Allergies No Known Allergies Allergy (Verified 10/16/24 10:42) Medications ???Medication ???Instructions ???Recorded ???Confirmed ???Type cetirizine 10 mg capsule (Zyrtec) 10 mg PO QDAY 09/25/24 11/17/24 H istory cholecalciferol (vitamin D3) 1,250 1,250 mcg PO QWEEK 09/25/2410/27 History mcg (50,000 unit) capsule nabumetone 500 mg tablet 1,000 mg PO QDAY 09/25/24 11/17/24 History omeprazole 20 mg capsule,delayed 20 mg PO QDAY 03/31/25 05/23/25 Hi story release promethazine 12.5 mg tablet 12.5 mg PO Q6H PRN nausea and 08/2811/17/24 History vomiting rituximab 10 mg/mL See Rx Instructions .Route .COMPLE X 09/25/24 11/17/24 History concentrate,intravenous ustekinumab 90 mg/mL subcutaneous 90 mg subcut Q5W 09/25/24 5 History syringe (Stelara) mesalamine 0.375 gram 0.75 g (2 x 0.375 gram) PO TID 11/17/24 Rx capsule,extended release 24 hr #540 [facility] History History of steroid therapy Dietary restriction History of colitis History of Crohn's disease History of IBS Gastric reflux Non-smoker Hx of fracture of arm History of ganglion cyst Rheumatoid arthritis Surgical History History of shoulder surgery History of esophagogastroduodenoscopy (EGD) Hx of colonoscopy Family History Sister Anxiety Mother Arthritis Grandmother Arthritis Autoimmune disorder Hypertension Hyperlipemia Grandfather COPD (chronic obstructive pulmonary disease) Aunt Breast cancer Depression Social History Smoking Status: Never smoker alcohol intake: never substance use type: marijuana what type of physical activity do you participate in: other details: physical therapy HPI HPI Details: MC RICE, is a 24 M who presents to the office today for follow up. *[facility] established 09.25.24 pt presents today to transfer care from [facility]. Pt has a long history of IBD and RA. Pt reports he was diagnosed with RA when he was 3 and is taking Rituximab infusions for this. Pt was diagnosed with IBD around 2018 and is on Mesalamine and Stelara Q5W. Pt reports his last colonoscopy was [id number]. Reports he has "flares" every few months. Pt reports daily nausea. States that he has alternating bowel movements and states that when he gets constipated that usually means he is about to have a flare. EGD and Colonoscopy 10.16.24 EGD Normal esophagus. Erythematous mucosa in the gastric body. Biopsied. Erythematous duodenopathy. Biopsied. Colonoscopy Discharge patient to home. Resume previous diet. Continue present medications. Await pathology results. Repeat colonoscopy for surveillance based on pathology results. MREnterography 11.08.24 1. No convincing MRI evidence of inflammatory bowel disease. 2. Grossly similar 6.6 cm stool ball associated with the base of the cecum compared with 03/25/2020, of uncertain significance. This would be optimally evaluated endoscopically. OV 11.17.24 pt reports continued symptoms from previous visit, notes nausea, diarrhea, abd pain, and gas / bloating. Pt reports he is here to discuss recent testing and results. ESR / CRP Calp / Lact Serum / AB 09.25.24 / 13 / neg ROS Const Constitutional: No fatigue, fever(s) or weight change ENT ENT: No difficulty swallowing Gastro GI: Positive for abdominal pain, bloating, diarrhea, excessive flatus and nausea/dyspepsia; No belching, change in bowel habits, change in stool character, coffee ground emesis, constipation, cramping, heartburn, difficulty swallowing, feeling full early, incontinent of stools, Vomiting blood/hematemesis, Blood in stool, loose stools, Black,tarry stools, pain with swallowing, vomiting or other Musc Musculoskeletal: Positive for joint pain, joint swelling, stiffness and Arthritis Skin Skin: No yellowing of the eye or itchy eyes Psych Psychiatric: No anxiety and No depression Endo Endocrine: No fatigue or weight change Aller/Imm Allergy/Immunologic: No itchy eyes Herbert/Lymp Hematologic/Lymphatic: No easy bleeding or easy bruising Exam Const General: cooperative, healt (more content not included)... Normal [facility] Enterography Abd/Ashu 11-08 Enterography Abd/Pel [facility] Imaging Services [address] [place] [address] Enterography Abd/Pel MR#: [id number] Acct: [id number] Name: MC RICE Rep #: [id number] : 2000 M 24 From: Jermain Hobbs MD PCP: Nick Olson NP-C Status: REG CLI Study: Enterography Abd/Pel Date of Exam: 11/08/24 Exam# [id number] Ordering Dr: Hunter Ceja DO PROCEDURE: ENTEROGRAPHY ABD/PEL, 11/08/2024 REASON FOR EXAM: K50.90 - CROHN'S DISEASE, UNSPECIFIED, WITHOUT COMPLICATIONS TECHNIQUE: Multisequence multiplanar MRI of the abdomen and pelvis was performed with and without IV contrast. IV contrast: 16 mL Clariscan PO contrast: Administered; type and dose information not provided. COMPARISON: 03/25/2020 FINDINGS: Variable overall mild motion limitation. A few sequences are moderately motion degraded. Note that the exam was optimized for evaluation of the bowel rather than the remaining abdominopelvic viscera. Note also that dynamic T2 and diffusion sequences were note that not performed. Incompletely imaged prostate and anal canal on most sequences. Perianal region and surrounding tissues not imaged on most sequences. Small portion of the stomach extends above the field of view of most sequences. Colonic prep is poor with retained stool. Liver: Grossly unremarkable as imaged. Spleen: Grossly unremarkable as imaged. Gallbladder/biliary: Suspect layering sludge within the gallbladder.. Pancreas: Unremarkable. Adrenals: Unremarkable. Kidneys: Unremarkable. Bowel: No convincing areas of abnormal bowel wall thickening, mural stratification, hyperemia, or dilatation. No findings to suggest fistulization or abscess. Grossly similar focal stool ball associated with the base of the cecum measuring roughly 6.6 x 3.7 x 3.9 cm allowing for technical differences. No abnormal wall thickening in the region identified. Unremarkable appendix. Lymph nodes: Unremarkable. Vasculature: Unremarkable. Peritoneum: Unremarkable. Bladder: Unremarkable. Reproductive Organs: Grossly unremarkable as imaged. Body Wall: Unremarkable. Bones: Unremarkable. MRI/Enterography Abd/Pel IMPRESSION: 1. No convincing MRI evidence of inflammatory bowel disease. 2. Grossly similar 6.6 cm stool ball associated with the base of the cecum compared with 03/25/2020, of uncertain significance. This would be optimally evaluated endoscopically. 3. Additional description as above. Reading Location: [id number] CC: LIVE OUT NANNYShawn Olson; Hunter Ceja DO Product Development Ecologist: Signed [facility] Colonoscopy Reporton 025 Colonoscopy Report [facility] Medical Records Department [address] [place] [address] Colonoscopy Report MR#: [id number] Acct: [id number] Name: MC RICE Rep #: [id number] : 2000 24 From: Hunter Ceja DO PCP: FLORIDALMA Vasquez [place] Patient Name: Mc Rice Procedure Date: 10/16/2024 11:53 AM Date of : 2000 Age: 24 Procedure: Colonoscopy Indications: Crohn's disease of the small bowel and colon Providers: Hunter Ceja DO Referring MD: Floridalma Vasquez Medicines: Monitored Anesthesia Care Patient Profile: This is a 24 year old male. Refer to note in patient chart for documentation of history and physical. Patient has symptoms of chronic epigastric abdominal pain. Last Colonoscopy: more than 3 years ago. Complications: No immediate complications. Procedure: Pre-Anesthesia Assessment: - Prior to the procedure, a History and Physical was performed, and patient medications and allergies were reviewed. The patient is competent. The risks and benefits of the procedure and the sedation options and risks were discussed with the patient. All questions were answered and informed consent was obtained. Patient identification and proposed procedure were verified by the physician in the pre-procedure area. Mental Status Examination: alert and oriented. Airway Examination: normal oropharyngeal airway and neck mobility. Respiratory Examination: clear to auscultation. CV Examination: normal. Prophylactic Antibiotics: The patient does not require prophylactic antibiotics. Prior Anticoagulants: The patient has taken no anticoagulant or antiplatelet agents except for NSAID medication. ASA Grade Assessment: II - A patient with mild systemic disease. After reviewing the risks and benefits, the patient was deemed in satisfactory condition to undergo the procedure. The anesthesia plan was to use monitored anesthesia care (MAC). Immediately prior to administration of medications, the patient was re-assessed for adequacy to receive sedatives. The heart rate, respiratory rate, oxygen saturations, blood pressure, adequacy of pulmonary ventilation, and response to care were monitored throughout the procedure. The physical status of the patient was re-assessed after the procedure. After I obtained informed consent, the scope was passed under direct vision. Throughout the procedure, the patient's blood pressure, pulse, and oxygen saturations were monitored continuously. The Colonoscope was introduced through the anus and advanced to the cecum, identified by appendiceal orifice and ileocecal valve. The colonoscopy was performed without difficulty. The patient tolerated the procedure well. The quality of the bowel preparation was adequate. The ileocecal valve, appendiceal orifice, and rectum were photographed. Scope In: 11:55:18 AM Scope Withdrawal Time 0 hours 10 minutes 39 seconds Scope Out: 12:14:36 PM Total Procedure Duration Time 0 hours 19 minutes 18 seconds Findings: The perianal and digital rectal examinations were normal. A benign-appearing, intrinsic severe stenosis measuring 5 cm (in length) x 6 mm (inner diameter) was found in the cecum and was non-traversed. Biopsies were taken with a cold forceps for histology. Verification of patient identification for the specimen was done. Estimated blood loss was minimal. Impression: - Stricture in the cecum. Biopsied. Recommendation: - Discharge patient to home. - Resume previous diet. - Continue present medications. - Await pathology results. - Repeat colonoscopy for surveillance based on pathology results. Procedure Code(s): --- Professional --- 91307, Colonoscopy, flexible; with biopsy, single or multiple CPT copyright 2021 [employer]. All rights reserved. The codes documented in this report are preliminary and upon private client advisor review may be revised to meet current compliance requirements. Hunter Ceja DO 10/16/2024 1:01:34 PM This report has been signed electronically. Number of Addenda: 0 Note Initiated On: 10/16/2024 11:53 AM 10/16/24 1301 Date Hunter Ceja DO Cosigner Signature: Date (if indicated) CC: FLORIDALMA Ceja DO Date Dictated: 10/16/24 1153 Date Transcribed: Product Development Ecologist: SUSSY Signed [facility] EGD Reporton 10-16-2024 EGD Report [facility] Medical Records Department [address] [place] [address] EGD Report MR#: [id number] Acct: [id number] Name: MC RICE Rep #: [id number] : 2000 24 From: Hunter Ceja DO PCP: FLORIDALMA Vasquez [place] Patient Name: Mc Rice Procedure Date: 10/16/2024 11:43 AM Date of : 2000 Age: 24 Procedure: Upper GI endoscopy Indications: Epigastric abdominal pain, Functional Dyspepsia Providers: Hunter Ceja DO Referring MD: Floridalma Vasquez Medicines: Monitored Anesthesia Care Patient Profile: This is a 24 year old male. Refer to note in patient chart for documentation of history and physical. Patient has symptoms of chronic epigastric abdominal pain. Complications: No immediate complications. Procedure: Pre-Anesthesia Assessment: - Prior to the procedure, a History and Physical was performed, and patient medications and allergies were reviewed. The patient is competent. The risks and benefits of the procedure and the sedation options and risks were discussed with the patient. All questions were answered and informed consent was obtained. Patient identification and proposed procedure were verified by the physician in the pre-procedure area. Mental Status Examination: alert and oriented. Airway Examination: normal oropharyngeal airway and neck mobility. Respiratory Examination: clear to auscultation. CV Examination: normal. Prophylactic Antibiotics: The patient does not require prophylactic antibiotics. Prior Anticoagulants: The patient has taken no anticoagulant or antiplatelet agents except for NSAID medication. ASA Grade Assessment: II - A patient with mild systemic disease. After reviewing the risks and benefits, the patient was deemed in satisfactory condition to undergo the procedure. The anesthesia plan was to use monitored anesthesia care (MAC). Immediately prior to administration of medications, the patient was re-assessed for adequacy to receive sedatives. The heart rate, respiratory rate, oxygen saturations, blood pressure, adequacy of pulmonary ventilation, and response to care were monitored throughout the procedure. The physical status of the patient was re-assessed after the procedure. After obtaining informed consent, the endoscope was passed under direct vision. Throughout the procedure, the patient's blood pressure, pulse, and oxygen saturations were monitored continuously. The Colonoscope was introduced through the mouth, and advanced to the third part of the duodenum. Small bowel enteroscopy was deemed necessary. The upper GI endoscopy was accomplished without difficulty. The patient tolerated the procedure well. Scope In: 11:50:15 AM Scope Out: 11:53:20 AM Total Procedure Duration Time 0 hours 3 minutes 5 seconds Findings: The examined esophagus was normal. Patchy mildly erythematous mucosa without bleeding was found in the gastric body. Biopsies were taken with a cold forceps for histology. Verification of patient identification for the specimen was done. Estimated blood loss was minimal. Biopsies were taken with a cold forceps for Helicobacter pylori testing. Verification of patient identification for the specimen was done. Estimated blood loss was minimal. Patchy mildly erythematous mucosa without active bleeding and with no stigmata of bleeding was found in the duodenal bulb and in the second portion of the duodenum. Biopsies were taken with a cold forceps for histology. Verification of patient identification for the specimen was done. Estimated blood loss was minimal. Impression: - Normal esophagus. - Erythematous mucosa in the gastric body. Biopsied. - Erythematous duodenopathy. Biopsied. Recommendation: - Discharge patient to home. - Resume previous diet. - Continue present medications. - Await pathology results. Procedure Code(s): --- Professional --- 64335, Small intestinal endoscopy, enteroscopy beyond second portion of duodenum, not including ileum; with biopsy, single or multiple CPT copyright 2021 [employer]. All rights reserved. The codes documented in this report are preliminary and upon private client advisor review may be revised to meet current compliance requirements. Hunter Ceja DO 10/16/2024 12:21:14 PM This report has been signed electronically. Number of Addenda: 0 Note Initiated On: 10/16/2024 11:43 AM 10/16/24 1221 Date Hunter Back Signature: Date (if indicated) CC: FLORIDALMA Olson; Hunter Ceja DO Date Dictated: 10/16/24 1143 Date Transcribed: Product Development Ecologist: SUSSY Signed [facility] Immunohistochemical Stainson 10-16-2024 Immunohistochemical Stains Patient Age/Sex Location Account Attending Physician MC RICE 24/M EN [id number] Hunter Ceja DO Specimen: [id number] Received: 10/16/24 Status: BRAYAN Sanchez Num: [id number] Spec Type: EGD BIOPSY Subm Dr: Hunter Ceja DO HEADER OPERATION: Colonoscopy, EGD biopsy PRE-OP DIAGNOSIS: Crohn's disease TISSUE SUBMITTED: A- Duodenum biopsy, B- Gastric body biopsy, C- Colonic stricture biopsy MICROSCOPIC DIAGNOSIS A. Small bowel, duodenum, biopsy: * Small bowel mucosa with no pathologic change B. Stomach, gastric body, biopsy: * Oxyntic mucosa with mild chronic inflammation * No morphologic evidence of Helicobacter pylori organisms on H E or immunostained sections C. Colon, stricture, biopsy: * Benign colonic mucosa with no pathologic change MICROSCOPIC DESCRIPTION Slides are reviewed. These tests were developed and their performance characteristics determined by [facility]. They may not have been cleared or approved by the U.S. Food and Drug Administration. The FDA has determined that such clearance or approval is not necessary. The above immunohistochemical/dualISH markers are ordered and reviewed by the Pathologist. GROSS DESCRIPTION A. Received in formalin in a container labeled with the patient's name, date of , and "duodenum biopsy" are 2 haley-pink fragments of mucosal tissue, each measuring 0.6 x 0.2 x 0.2 cm. Submitted in toto in A1. B. Received in formalin in a container labeled with the patient's name, date of , and "gastric body biopsy" are multiple haley-pink fragments of mucosal tissue measuring 0.6 x 0.4 x 0.2 cm in aggregate. Submitted in toto in B1. C. Received in formalin in a container labeled with the patient's name, date of , and colonic stricture biopsy are 3 haley-pink fragments of mucosal tissue ranging from 0.4 x 0.2 x 0.2 cm to 0.5 x 0.4 x 0.3 cm. Submitted in toto in C1. [facility] 10/17/2024 [facility]:[id number] Patient Age/Sex Location Account Attending Physician MC RICE 24/M EN [id number] Hunter Ceja DO Signed (signature on file) Dr. Fariba Ochoa DO 10/17/[address] [facility] Comment on above: Performed By: #### L 7000.0700, L7000.0750, M100.637, M100.0605, L7000.0300, M100.7900 #### [facility] [address] [place], [address] MR/POSTOP.ANEemir 10-16-2024 MR/POSTOP.[facility] Medical Records Department [address] [place] [address] Anesthesia Postop Eval I 10/16/24 1235 MR#: [id number] Acct: [id number] Name: MC RICE Rep #: [id number] : 2000 24 From: Pablo Leon PCP: FLORIDALMA Vasquez Status:REG SDC Y Race: C Location: [place] [address] Anesthesia: Postop Eval I Current Vital Signs Temperature: 97.6 F Pulse Rate: 62 Blood Pressure: 88/55 Respiratory Rate: 16 Pulse Ox: 97 Oxygen Delivery Method: Room Air Assessment Airway patent: Yes Spontaneous unlabored respirations: Yes Mental status: Asleep nausea: No Vomiting: No Anesthesia Complication: No Fluid Hydration Crystalloid volume administer (ml): 90 Total IV fluid infused: 90 Progress Note Anesthesia document: Postop Eval 1 completed: Yes 10/16/24 1236 Date Pablo Lewis Signature: Date CC: Signed Normal [facility] MR/[id number] 10-16-2024 [facility] Medical Records Department [address] [place] [id number] Anesthesia Postop Eval II 10/16/24 1235 MR#: [id number] Acct: [id number] Name: MC RICE Rep #: [id number] : 2000 24 From: Davin Sandhu MD PCP: FLORIDALMA Vasquez Status:REG SD Y Race: C Location: [place] [address] Anesthesia Postop Eval I Sum Anesthesia Postop Eval I Summary Anesthesia Postop Eval I Summary: Anesthesia Postop Eval I: Assessment Summary Airway patent Spontaneous unlabored respirations Mental status nausea Vomiting Anesthesia Postop Eval I: Fluid Summary Crystalloid volume administer (ml) Colloids volume administered ( ml) Blood Product volume administered (ml) Total IV fluid infused Anesthesia Postop Eval I: Summary Notes Anesthesia Complication Anesthesia Complication Comment: Post-operative progress note Anesthesia: Postop Eval II Evaluation Mental status: Awake Pain Level: 0 nausea: No Vomiting: No 10/16/24 1235 Date Davin Lewis Signature: Date CC: Signed Normal [facility] COMPLETE BLOOD COUNT WITH DI FFERENTIALon 10-12-2024 Basophil \\P\\ 0.04 10E3/???L Invalid Interpretation Code 0.02-0.06 [facility] Comment on above: Order Comment: Relea se to patient->Automatic Basophils/100 WBC (Bld) 0.7 % Invalid Interpretation Code 0.3-1.0 [facility] Comment on above: Order Comment: Relea se to patient->Automatic Eosinophil \\P\\ 0.15 10E3/???L Invalid Interpretation Code 0.04-0.31 [facility] Comment on above: Order Comment: Relea se to patient->Automatic Eosinophils/100 WBC (Bld) 2.7 % Invalid Interpretation Code 0.7-4.6 [facility] Comment on above: Order Comment: Relea se to patient->Automatic Erythrocyte distribution width (RBC) [Ratio] 12.5 % Invalid Interpretation Code 11.9-13.5 [facility] Comment on above: Order Comment: Relea se to patient->Automatic Hematocrit (Bld) [Volume fraction] 43.2 % Invalid Interpretation Code 40.6-50.2 [facility] Comment on above: Order Comment: Relea se to patient->Automatic Hemoglobin (Bld) [Mass/Vol] 14.7 g/dL Invalid Interpretation Code 13.5-17.0 [facility] Comment on above: Order Comment: Relea se to patient->Automatic Immature granulocytes/100 WBC (Bld) 0.2 % Invalid Interpretation Code 0.2-0.5 [facility] Comment on above: Order Comment: Relea se to patient->Automatic Result Comment: Jillian ture Granulocyte Percent includes promyelocytes, myelocytes,and metamyelocytes. IG% > 1.0 indicates a left shift is present. With automated differentials, bands are included in the neutrophil count and not in the Immature Granulocyte Percent. Lymphocyte \\P\\ 1.40 10E3/???L Invalid Interpretation Code 1.39-2.72 [facility] Comment on above: Order Comment: Relea se to patient->Automatic Lymphocytes/100 WBC (Bld) 24.9 % Invalid Interpretation Code 20.0-42.9 [facility] Comment on above: Order Comment: Relea se to patient->Automatic MCH (RBC) [Entitic mass] 29.8 pg Invalid Interpretation Code 27.3-31.2 [facility] Comment on above: Order Comment: Relea se to patient->Automatic MCHC 34.0 % Invalid Interpretation Code 32.1-34.8 [facility] Comment on above: Order Comment: Relea se to patient->Automatic MCV (RBC) [Entitic vol] 87.4 fL Invalid Interpretation Code 82.8-92.0 [facility] Comment on above: Order Comment: Relea se to patient->Automatic Monocyte \\P\\ 0.56 10E3/???L Invalid Interpretation Code 0.38-0.83 [facility] Comment on above: Order Comment: Relea se to patient->Automatic Monocytes/100 WBC (Bld) 9.9 % Invalid Interpretation Code 6.5-11.5 [facility] Comment on above: Order Comment: Relea se to patient->Automatic Neutrophil \\P\\ 3.47 10E3/???L Invalid Interpretation Code 2.07-6.00 [facility] Comment on above: Order Comment: Relea se to patient->Automatic Neutrophils/100 WBC (Bld) 61.6 % Invalid Interpretation Code 43.5-69.0 [facility] Comment on above: Order Comment: Relea se to patient->Automatic Nucleated RBC/100 WBC (Bld) [Ratio] 0.0 % Invalid Interpretation Code 0.0-0.0 [facility] Comment on above: Order Comment: Relea se to patient->Automatic Platelet mean volume (Bld) [Entitic vol] 9.0 fL Low 9.6-11.8 [facility] Comment on above: Order Comment: Relea se to patient->Automatic Platelets 195 10E3/???L Invalid Interpretation Code 150-400 [facility] Comment on above: Order Comment: Relea se to patient->Automatic RBC 4.94 10E6/???L Invalid Interpretation Code 4.59-5.58 [facility] Comment on above: Order Comment: Relea se to patient->Automatic WBC 5.6 10E3/???L Invalid Interpretation Code 4.5-9.6 [facility] Comment on above: Order Comment: Relea se to patient->Automatic COMPREHENSIVE METABOLIC PANE Ravi 10-12-2024 Albumin [Mass/Vol] 4.3 g/dL Invalid Interpretation Code 3.5-5.0 [facility] Comment on above: Order Comment: Relea se to patient->Automatic Result Comment: Veri fied By: [id number] ALP [Catalytic activity/Vol] 59 U/L Invalid Interpretation Code 40-129 [facility] Comment on above: Order Comment: Relea se to patient->Automatic Result Comment: Veri fied By: [id number] ALT [Catalytic activity/Vol] 27 U/L Invalid Interpretation Code <=46 [facility] Comment on above: Order Comment: Relea se to patient->Automatic Result Comment: Veri fied By: [id number] AST [Catalytic activity/Vol] 43 U/L High <=37 [facility] Comment on above: Order Comment: Relea se to patient->Automatic Result Comment: Veri fied By: [id number] BILI,TOTAL 0.6 mg/dL Invalid Interpretation Code <=1.0 [facility] Comment on above: Order Comment: Relea se to patient->Automatic Result Comment: Veri fied By: [id number] Calcium [Mass/Vol] 9.4 mg/dL Invalid Interpretation Code 7.6-11.0 [facility] Comment on above: Order Comment: Relea se to patient->Automatic Result Comment: Veri fied By: [id number] Chloride [Moles/Vol] 106 mmol/L Invalid Interpretation Code 96-108 [facility] Comment on above: Order Comment: Relea se to patient->Automatic Result Comment: Veri fied By: [id number] CO2 [Moles/Vol] 24.2 mmol/L Invalid Interpretation Code 22.0-29.0 [facility] Comment on above: Order Comment: Relea se to patient->Automatic Result Comment: Veri fied By: [id number] Creatinine [Mass/Vol] 0.95 mg/dL Invalid Interpretation Code 0.70-1.20 [facility] Comment on above: Order Comment: Relea se to patient->Automatic Result Comment: Veri fied By: [id number] GFR/1.73 sq M.predicted among non-blacks MDRD (S/P/Bld) [Vol rate/Area] mL/min/{1.73_m2} Invalid Interpretation Code >=60 [facility] Comment on above: Order Comment: Relea se to patient->Automatic Glucose [Mass/Vol] 86 mg/dL Invalid Interpretation Code 70-99 [facility] Comment on above: Order Comment: Relea se to patient->Automatic Result Comment: Crit david for Diagnosis of Diabetes: Fasting Specimen (no caloric intake for at least 8 hours): <100 mg/dL Normal 100-125 mg/dL Increased risk for Diabetes >125 mg/dL Diagnostic for Diabetes Random Glucose (any time of day without regard to last meal): > or = 200 mg/dL plus Classic Symptoms of Diabetes Verified By: [id number] Potassium [Moles/Vol] 4.4 mmol/L Invalid Interpretation Code 3.3-5.1 [facility] Comment on above: Order Comment: Relea se to patient->Automatic Result Comment: Veri fied By: [id number] Protein [Mass/Vol] 6.7 g/dL Invalid Interpretation Code 5.9-8.4 [facility] Comment on above: Order Comment: Relea se to patient->Automatic Result Comment: Veri fied By: [id number] Sodium [Moles/Vol] 139 mmol/L Invalid Interpretation Code 133-145 [facility] Comment on above: Order Comment: Relea se to patient->Automatic Result Comment: Veri fied By: [id number] Urea nitrogen [Mass/Vol] 11 mg/dL Invalid Interpretation Code 4-19 [facility] Comment on above: Order Comment: Relea se to patient->Automatic Result Comment: Lanette fied By: [id number] Complete Blood CountOrdered By: Amada Herndon on 10-12-2024 Basophils (Bld) [#/Vol] 0.04 10*3/uL [facility] Basophils/100 WBC (Bld) 0.7 % 0.3 - 1.0 % [facility] Eosinophils (Bld) [#/Vol] 0.15 10*3/uL [facility] Eosinophils/100 WBC (Bld) 2.7 % 0.7 - 4.6 % [facility] Erythrocyte distribution width (RBC) [Ratio] 12.5 % 11.9 - 13.5 % [facility] Hematocrit (Bld) [Volume fraction] 43.2 % 40.6 - 50.2 % [facility] Hemoglobin (Bld) [Mass/Vol] 14.7 g/dL 13.5 - 17.0 g/dL [facility] Immature granulocytes/100 WBC (Bld) 0.2 % 0.2 - 0.5 % [facility] Comment on above: Immature Granulocyte Percent includes promyelocytes, myelocytes,and metamyelocytes. IG% > 1.0 indicates a left shift is present. With automated differentials, bands are included in the neutrophil count and not in the Immature Granulocyte Percent. Interpretation and review of laboratory results Abnormal [facility] Lymphocytes (Bld) [#/Vol] 1.4 10*3/uL [facility] Lymphocytes/100 WBC (Bld) 24.9 % 20.0 - 42.9 % [facility] MCH (RBC) [Entitic mass] 29.8 pg 27.3 - 31.2 pg [facility] MCHC (RBC) [Mass/Vol] 34 % 32.1 - 34.8 % [facility] MCV (RBC) [Entitic vol] 87.4 fL 82.8 - 92.0 fL [facility] Monocytes (Bld) [#/Vol] 0.56 10*3/uL [facility] Monocytes/100 WBC (Bld) 9.9 % 6.5 - 11.5 % [facility] Neutrophils (Bld) [#/Vol] 3.47 10*3/uL [facility] Neutrophils/100 WBC (Bld) 61.6 % 43.5 - 69.0 % [facility] Nucleated RBC/100 WBC (Bld) [Ratio] 0 % 0.0 - 0.0 % [facility] Platelet mean volume (Bld) [Entitic vol] 9 fL Low 9.6 - 11.8 fL [facility] Platelets (Bld) [#/Vol] 195 10*3/uL [facility] RBC (Bld) [#/Vol] 4.94 10*6/uL [facility] WBC (Bld) [#/Vol] 5.6 10*3/uL [facility] Comprehensive metabolic pane lOrdered By: Background Lab on 10-12-2024 Albumin BCG dye [Mass/Vol] 4.3 g/dL 3.5 - 5.0 g/dL [facility] Comment on above: Verified By: [id number] ALP [Catalytic activity/Vol] 59 U/L 40 - 129 U/L [facility] Comment on above: Verified By: [id number] ALT With P-5'-P [Catalytic activity/Vol] 27 U/L [facility] - 46 U/L [facility] Comment on above: Verified By: [id number] AST With P-5'-P [Catalytic activity/Vol] 43 U/L High [facility] - 37 U/L [facility] Comment on above: Verified By: [id number] Bilirubin [Mass/Vol] 0.6 mg/dL [facility] mg/dL [facility] Comment on above: Verified By: [id number] Calcium [Mass/Vol] 9.4 mg/dL 7.6 - 11. 0 mg/dL [facility] Comment on above: Verified By: [id number] Chloride [Moles/Vol] 106 mmol/L 96 - 10 8 mmol/L [facility] Comment on above: Verified By: [id number] Creatinine [Mass/Vol] 0.95 mg/dL 0.70 - 1.20 mg/dL [facility] Comment on above: Verified By: [id number] eGFR - PINF [facility] Glucose [Mass/Vol] 86 mg/dL 70 - 99 mg/dL [facility] Comment on above: Criteria for Diagnos is of Diabetes: Fasting Specimen (no caloric intake for at least 8 hours): <100 mg/dL Normal 100-125 mg/dL Increased risk for Diabetes >125 mg/dL Diagnostic for Diabetes Random Glucose (any time of day without regard to last meal): > or = 200 mg/dL plus Classic Symptoms of Diabetes Verified By: [id number] HCO3 (P) [Moles/Vol] 24.2 mmol/L 22.0 - 29.0 mmol/L [facility] Comment on above: Verified By: [id number] Interpretation and review of laboratory results Abnormal [facility] Potassium (BldA) [Moles/Vol] 4.4 mmol/L 3.3 - 5.1 mmol/L [facility] Comment on above: Verified By: [id number] Protein [Mass/Vol] 6.7 g/dL 5.9 - 8.4 g/dL [facility] Comment on above: Verified By: [id number] Sodium [Moles/Vol] 139 mmol/L 133 - 145 mmol/L [facility] Comment on above: Verified By: [id number] Urea nitrogen [Mass/Vol] 11 mg/dL 4 - 19 mg/dL [facility] Comment on above: Verified By: [id number] [facility] ERYTHROCYTE SEDIMENTATION RA Courtney 10-12-2024 ESR (Bld) [Velocity] 2 mm/h Invalid Interpretation Code [facility] Comment on above: Order Comment: Relea se to patient->Automatic Result Comment: [place] orn: 0-2 mm/hr [place] to puberty: 3-13 mm/hr Less than 50 years old: Male: <15 mm/hr Female: <20 mm/hr Greater than 50 years old: Male: <20 mm/hr Female: <30 mm/hr Erythrocyte Sedimentation Ra teOrdered By: Nerissa Bates on 10-12-2024 ESR Photometric method (Bld) [Velocity] 2 mm/hr [facility] Comment on above: [place]: 0-2 mm/hr [place] to puberty: 3-13 mm/hr Less than 50 years old: Male: <15 mm/hr Female: <20 mm/hr Greater than 50 years old: Male: <20 mm/hr Female: <30 mm/hr [facility] Progress Noteon 10-12-2024 Rn Medical Inpatient Services Authentication Interface Message Text Returning patient Mc Rice is a 24 y.o. male presenting today for Chief Complaint Patient presents with Follow Up [place]AW[place] History of Presenting Problem He is accompanied by his mother. Independent history obtained from mother. 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 At that visit, he has improved after restarting rituximab although still having some active arthritis. His first dose of second cycle was 09/28/24. Since his last visit, Mc has been about the same. With the swing in temperatures his arthritis has been worse. He has been having increased morning stiffness up to 1.5 hours. He states typically his morning stiffness is 30-40 minutes. He has been having more left wrist pain and stiffness. He also has continued to have left shoulder pain. He did have bilateral knee pain when the temperature went from 30's to 70's. He has limited range of motion of his left shoulder and bilateral wrists. He states that his TMJ has been okay. Denies any pain when biting into things or chewing. He does have significant cracking when opening his mouth which causes pain occasionally. He has been taking his medications as prescribed. He has been taking his relafen without trouble. He hasn't been able to start PT yet. He states that his IBD has been "okay". He continues to have bouts of abdominal pain, nausea and changes in stool. He did see a new GI physician who is getting imaging and he is having a scope Wednesday next week. He has an appointment with adult rheumatology, Dr. Lay, at the end of October. He states that after his last infusion his gut had done better with increased fluids. His last dose of Stelara was 09/26/24. He is currently at every 5 weeks. He has had two trough levels which were within the normal range. He does feel worse the week prior to his next dose (around week 4). He denies any fevers. He takes his weekly vitamin D on Mondays. He has received his COVID vaccines. Received flu vaccine for this season. Last labs 09/28/24. Last GI appointment was 08/23/24 via telehealth with recommended follow up in 3 months. Recommended next EGD + Colonoscopy in 2026. 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 He intially had bilateral ankles and wrists involvement. He did have bilateral ankle steroid injections which resolved the inflammation. He had left wrist steroid injection but he continued to have swelling. He was initially started on Naproxen and then Methotrexate was added. He was on both oral and SQ methotrexate. Enbrel was added because of continued joint swelling but it didn't control his swelling. He was then placed on Orencia IV and methotrexate and his joints improved. He did have left wrist surgery (4th grade) secondary to ganglion cyst. He has had decreased range of motion of his left wrist secondary to correction sequela of arthritis. He had surgery on his right wrist (5th grade) after he fractured it during a skateboarding accident. He has never had uveitis. He had stopped methotrexate and Orencia in 06/01/2016. He was restarted on SQ Orencia in July 2017. 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 He was also started on oral steroids which were weaned off in October 2017. He continued to havejoint pain and swelling so methotrexate SQ was started in August 2017. He had an MRI of his TMJs which showed bilateral effusions and bone edema consistent with arthritis in October 2017. Methotrexate was stopped in November 2017 after side effects (nausea, feeling sick). Orencia was stopped in December 2017 as he continued to have significant swelling and arthritis. He was switched to Tocilizumab in December 2017. Bilateral TMJ and 4th left PIP steroid injections on 02/04/2018. His arthritis worsened while on Tocilizumab so he was switched to Remicade IV and pulse steroids while admitted in February 2018. Remicade dose was increased in March and May 2018. He was switched from Remicade to Rituximab in June 2018. He was given another course of oral steroids in June 2018 for worsening arthritis. He was started on weekly IV pulse steroids in July 2018. His sulfasalazine was stopped in July and switched to azathioprine. He stopped azathioprine in August 2018. He was started on Rituximab in June 2018. He was diagnosed with IBD in March 2019. He was started on Humira in May 2019 after diagnosis with IBD. His arthritis was under control in December 2019. He continued to have active IBD so he was switched to Stelara in January 2020. His celebrex was increased in May 2020. He had active right elbow swelling in September 2020. He was started on sulfasalazine in November 2020. He was lost to follow up between November 2020 and Ma (more content not included)... Normal [facility] URINALYSIS, COMPLETEon 10-12 Bilirubin Ql (U) Negative Invalid Interpretation Code Negative [facility] Comment on above: Order Comment: Relea se to patient->Automatic Character Clear Invalid Interpretation Code [facility] Comment on above: Order Comment: Relea se to patient->Automatic Color (U) Light Yellow Invalid Interpretation Code [facility] Comment on above: Order Comment: Relea se to patient->Automatic Epithelial cells.squamous LM.HPF (Urine sed) [#/Area] /[HPF] Invalid Interpretation Code <=2 [facility] Comment on above: Order Comment: Relea se to patient->Automatic Glucose Ql (U) Normal Invalid Interpretation Code Normal [facility] Comment on above: Order Comment: Relea se to patient->Automatic Ketones Ql (U) Negative Invalid Interpretation Code Negative [facility] Comment on above: Order Comment: Relea se to patient->Automatic Leukocyte esterase Test strip Ql (U) Negative Invalid Interpretation Code Negative [facility] Comment on above: Order Comment: Relea se to patient->Automatic Nitrite Ql (U) Negative Invalid Interpretation Code Negative [facility] Comment on above: Order Comment: Relea se to patient->Automatic pH (U) 6.0 [pH] Invalid Interpretation Code 5.0-8.0 [facility] Comment on above: Order Comment: Relea se to patient->Automatic Protein Ql (U) Negative Invalid Interpretation Code Neg.-Trace [facility] Comment on above: Order Comment: Relea se to patient->Automatic RBC 0 /HPF Invalid Interpretation Code <=2 [facility] Comment on above: Order Comment: Relea se to patient->Automatic Renal Epithelial Cells 0 /HPF Invalid Interpretation Code <=2 [facility] Comment on above: Order Comment: Relea se to patient->Automatic Specific gravity (U) [Rel density] 1.008 Invalid Interpretation Code Reference Range: 1.005-1.030 [facility] Comment on above: Order Comment: Relea se to patient->Automatic Transitional Epithelial Cells 0 /HPF Invalid Interpretation Code <=2 [facility] Comment on above: Order Comment: Relea se to patient->Automatic Urobilinogen Normal Invalid Interpretation Code Normal [facility] Comment on above: Order Comment: Relea se to patient->Automatic Volume 12 mL Invalid Interpretation Code [facility] Comment on above: Order Comment: Relea se to patient->Automatic WBC (U) [#/Vol] /uL Invalid Interpretation Code <=2 [facility] Comment on above: Order Comment: Relea se to patient->Automatic Urinalysis, completeOrdered By: Susan Hammer on 10-12-2024 Bilirubin Ql (U) Negative Negative [facility] Character Clear [facility] Color (U) Light Yellow [facility] Epithelial cells.renal Computer assisted (U) [#/Area] 0 NINF [facility] Epithelial cells.squamous Auto (Urine sed) [#/Area] NINF [facility] Glucose Auto test strip Ql (U) Normal Normal [facility] Hemoglobin Auto test strip Ql (U) Negative Negative [facility] Ketones (U) [Mass/Vol] Negative Negative [facility] Leukocyte esterase Auto test strip Ql (U) Negative Negative Yrn/uL [facility] Nitrite Ql (U) Negative Negative [facility] pH (U) 6.0 [pH] 5.0 - 8.0 [facility] Protein (U) [Mass/Vol] Negative Neg.-Trace [facility] RBC Auto (Urine sed) [#/Area] 0 NINF [facility] Specific gravity Refractometry automated (U) [Rel density] 1.008 Reference Range: 1.005-1.030 [facility] Specimen volume (U) 12 mL [facility] Transitional cells Computer assisted (U) [#/Area] 0 [facility] Urobilinogen (U) [Mass/Vol] Normal Normal mg/dL [facility] WBC Auto (Urine sed) [#/Area] NINF [facility] Calprotectin, Stoolon [address] 27 ug/g Normal 0-120 [facility] Comment on above: Order Comment: Test( s) 308427-Oxlm, Neutral; [id number]-Alxt, Total was developed and its performance characteristics determined by [facility]. It has not been cleared or approved by the Food and Drug Administration. Result Comment: Conc entration Interpretation Follow-Up < 5 - 50 ug/g Normal None >50 -120 ug/g Borderline Re-evaluate in 4-6 weeks >120 ug/g Abnormal Repeat as clinically indicated Performed at: [address] [id number] [employer] Assistant: Tim Adkins PhD, Phone: [phone] Performed at: [address] [id number] Housekeeping Assistant: Antonio Liu MD, Phone: [phone] Performed By: #### L 7000.0700, L7000.0750, M100.637, M100.0605, L7000.0300, M100.7900 #### [facility] [address] [facility] [place], [address] Fecal Fat, Qualitativeon FATS, NEUTRAL Normal Normal . [facility] Comment on above: Order Comment: Test( s) 125584-Vpio, Neutral; 827077-Rmql, Total was developed and its performance characteristics determined by [employer]. It has not been cleared or approved by the Food and Drug Administration. Result Comment: Norm al (<60 Droplets/HPF) Performed By: #### L 7000.0700, L7000.0750, M100.637, M100.0605, L7000.0300, M100.7900 #### [facility] [address] [facility] [place], [place], [address] FATS, TOTAL Normal Normal . [facility] Comment on above: Order Comment: Test( s) 571662-Rdrd, Neutral; 487706-Isor, Total was developed and its performance characteristics determined by [employer]. It has not been cleared or approved by the Food and Drug Administration. Result Comment: Norm al (<100 Droplets/HPF) Performed By: #### L 7000.0700, L7000.0750, M100.637, M100.0605, L7000.0300, M100.7900 #### [facility] [address] [place], [place], [id number] L7000.0750on 10-06-2024 P ELASTASE,FECA > 800 Normal >200 [facility] Comment on above: Result Comment: Resu lt Units: ug Elast./g Severe Pancreatic Insufficiency: <100 Moderate Pancreatic Insufficiency: 100 - 200 Normal: >200 Performed at: [facility] [employer] [id number] Housekeeping Assistant: Antonio Liu MD, Phone: [phone] Performed By: #### L 7000.0700, L7000.0750, M100.637, M100.0605, L7000.0300, M100.7900 #### [facility] [address] [place], [place], [address] Calprotectin stoolOrdered By : Hunter Ceja on 10-04-2024 Stool Calprotectin 27 ug/g 0-120 [facility] Comment on above: Concentration Interp retation Follow-Up< 5 - 50 ug/g Normal None>50 -120 ug/g Borderline Re-evaluate in 4-6 weeks >120 ug/g Abnormal Repeat as clinically indicatedPerformed at: [facility] [employer] [id number] Director: Tim Adkins PhD, Phone: [phone] at: [facility] [employer] [id number] Director: Antonio Liu MD, Phone: [phone] ENTERIC PATHOGEN PANEL STOOL on 10-04-2024 EP PANEL Normal Reference Ran ge = Not Detected Not detected for Campylobacter group, Salmonella species, Shigella species, Vibrio Group, Yersinia enterocolitica, EHEC (Shiga Toxin 1, Shiga Toxin 2), Norovirus Gl/Gll, and Rotavirus A. Other common stool pathogens are not detected on this panel include: Aeromonas/Plesiomonas or parasites. Order testing for these organisms separately if suspected. This is an amplified DNA test which makes it both specific and sensitive. CAMPYLOBACTER Not Detected Norovirus Not Detected Rotavirus Not Detected Salmonella Not Detected Shiga Toxin Not Detected Shigella sp. Not Detected VIBRIO Not Detected Yersinia Not Detected Normal [facility] Comment on above: Performed By: #### L 7000.0700, L7000.0750, M100.637, M100.0605, L7000.0300, M100.7900 #### [facility] [address] [place] [address]. [place], [place], [address] Elastase.pancreatic (Stl) [M ass/Mass]Ordered By: Hunter Ceja on 10-04-2024 Stool Pancreatic Elastase > [address] >200 [facility] Comment on above: Result Units: ug Hanna st./g Severe Pancreatic Insufficiency: <100 Moderate Pancreatic Insufficiency: 100 - 200 Normal: >200Performed at: [facility] [address] [id number] Director: Antonio Liu MD, Phone: [phone] Fat Ql (Stl)Ordered By: Anastacio Mendoza on 10-04-2024 Stool Total Fats Normal . [facility] Comment on above: Normal (<100 Droplet s/HPF) Lactoferrin IA Ql (Stl)Order ed By: Hunter Ceja on 10-04-[address] [facility] Lower GI hemoglobin IA Ql (S tl)Ordered By: Hunter Ceja on 10-04-2024 Stool Occult Blood (JOE) [facility] No Panel InformationOrdered By: Hunter Ceja on 10-04-2024 Stool Neutral Fats Normal . [facility] Comment on above: Normal (<60 Droplets /HPF) Stool Lactoferrin/WBCon 04-0 WBCST Normal Reference Ran ge = Negative Fecal WBC Lactoferrin Negative: No Fecal WBC Lactoferrin present Normal [facility] Comment on above: Performed By: #### L 7000.0700, L7000.0750, M100.637, M100.0605, L7000.0300, M100.7900 #### [facility] [address] [place], [place], [id number] [phone] Stool Occult Blood iFOBon STOB Normal Reference Ran ge = Negative Immunochemical Fecal Occult Blood (iFOBT) method. Hemoccult Stl Ql IA Limitation: Menstrual bleeding, constipation bleeding, bleeding hemorrhoids, and urinary bleeding conditions may interfere with test. Occult Blood Negative Normal [facility] Comment on above: Performed By: #### L 7000.0700, L7000.0750, M100.637, M100.0605, L7000.0300, M100.7900 #### [facility] [address] [place], [address] Stool enteric pathogen panel by probe and target amplification methodOrdered By: Hunter Friend on 10-04-2024 Enteric Bacteriology [facility] ANCAon 10-03-2024 Atypical pANCA 1:40 Abnormal Neg:<1:20 [facility] Comment on above: Result Comment: The atypical pANCA pattern has been observed in a significant percentage of patients with ulcerative colitis, primary sclerosing cholangitis and autoimmune hepatitis. Performed By: #### L 7000.0700, L7000.0750, M100.637, M100.0605, L7000.0300, M100.7900 #### [facility] [address] [place], [place], [id number] Cytoplasmic Ab <1:20 Normal Neg:<1:20 [facility] Comment on above: Performed By: #### L 7000.0700, L7000.0750, M100.637, M100.0605, L7000.0300, M100.7900 #### [facility] [address] [place], [place], [id number] Perinuclear Ab. <1:20 Normal Neg:<1:20 [facility] Comment on above: Result Comment: The presence of positive fluorescence exhibiting P-ANCA or C-ANCA patterns alone is not specific for the diagnosis of Javier's Granulomatosis (WG) or microscopic polyangiitis. Decisions about treatment should not be based solely on ANCA IFA results. The International ANCA Group Consensus recommends follow up testing of positive sera with both MI- 3 and MPO-ANCA enzyme immunoassays. As many as 5% serum samples are positive only by EIA. Ref. AM J Clin Pathol 1999;111:507-513. Performed By: #### L 7000.0700, L7000.0750, M100.637, M100.0605, L7000.0300, M100.7900 #### [facility] [address] [place], [address] Allergen, Mini-Raston 2024 A. ALTERNATA <0.[address] [facility] Comment on above: Performed By: #### L 3200.1100, L3100.3425, L100.9950, L3100.1850, L800.1280, L503.0106, L3000.0375, L501.2300, L503.6550, L501.6710, L3400.8000, L501.5200, L3300.1200, L5500.0300, L100.0100, L3410.9998, L3300.0960, L504.2610, L803.2200, L500.4050, L3100.6900, L3200.0500, L3410.2400, L501.9520, L503.6150, L5500.0550, L101.9900 ####[facility] [address] [place], [place], [address] BERMUDA GRASS <0.[address] [facility] Comment on above: Performed By: #### L 3200.1100, L3100.3425, L100.9950, L3100.1850, L800.1280, L503.0106, L3000.0375, L501.2300, L503.6550, L501.6710, L3400.8000, L501.5200, L3300.1200, L5500.0300, L100.0100, L3410.9998, L3300.0960, L504.2610, L803.2200, L500.4050, L3100.6900, L3200.0500, L3410.2400, L501.9520, L503.6150, L5500.0550, L101.9900 ####[facility] [address] [facility] [place], [place], [address] [place], [place] <0.[address] [facility] Comment on above: Performed By: #### L 3200.1100, L3100.3425, L100.9950, L3100.1850, L800.1280, L503.0106, L3000.0375, L501.2300, L503.6550, L501.6710, L3400.8000, L501.5200, L3300.1200, L5500.0300, L100.0100, L3410.9998, L3300.0960, L504.2610, L803.2200, L500.4050, L3100.6900, L3200.0500, L3410.2400, L501.9520, L503.6150, L5500.0550, L101.9900 ####[facility] [address] [place], [address] CAT HAIR/DANDER <0.[address] [facility] Comment on above: Performed By: #### L 3200.1100, L3100.3425, L100.9950, L3100.1850, L800.1280, L503.0106, L3000.0375, L501.2300, L503.6550, L501.6710, L3400.8000, L501.5200, L3300.1200, L5500.0300, L100.0100, L3410.9998, L3300.0960, L504.2610, L803.2200, L500.4050, L3100.6900, L3200.0500, L3410.2400, L501.9520, L503.6150, L5500.0550, L101.9900 ####[facility] [address] [place], [place], [id number] COMMENT Comment Normal . [facility] Comment on above: Result Comment: Brady velarde of Specific IgE Class Description of Class ----- < 0.10 0 Negative 0.10 - 0.31 0/I Equivocal/Low 0.32 - 0.55 I Low 0.56 - 1.40 II Moderate 1.41 - 3.90 III High 3.91 - 19.00 IV Very High 19.01 - 100.00 V Very High >100.00 Very High Performed By: #### L 3200.1100, L3100.3425, L100.9950, L3100.1850, L800.1280, L503.0106, L3000.0375, L501.2300, L503.6550, L501.6710, L3400.8000, L501.5200, L3300.1200, L5500.0300, L100.0100, L3410.9998, L3300.0960, L504.2610, L803.2200, L500.4050, L3100.6900, L3200.0500, L3410.2400, L501.9520, L503.6150, L5500.0550, L101.9900 ####[facility] [address] [place], [address] D FARINAE MITE 0.37 kU/L Abnormal Class I [facility] Comment on above: Performed By: #### L 3200.1100, L3100.3425, L100.9950, L3100.1850, L800.1280, L503.0106, L3000.0375, L501.2300, L503.6550, L501.6710, L3400.8000, L501.5200, L3300.1200, L5500.0300, L100.0100, L3410.9998, L3300.0960, L504.2610, L803.2200, L500.4050, L3100.6900, L3200.0500, L3410.2400, L501.9520, L503.6150, L5500.0550, L101.9900 ####[facility] [address] [facility], [address] D PTERONYSSINUS 0.25 kU/L Abnormal Class 0/I [facility] Comment on above: Performed By: #### L 3200.1100, L3100.3425, L100.9950, L3100.1850, L800.1280, L503.0106, L3000.0375, L501.2300, L503.6550, L501.6710, L3400.8000, L501.5200, L3300.1200, L5500.0300, L100.0100, L3410.9998, L3300.0960, L504.2610, L803.2200, L500.4050, L3100.6900, L3200.0500, L3410.2400, L501.9520, L503.6150, L5500.0550, L101.9900 ####[facility] [address] [facility] [place], [address] DOG EPITHELIA <0.[address] [facility] Comment on above: Performed By: #### L 3200.1100, L3100.3425, L100.9950, L3100.1850, L800.1280, L503.0106, L3000.0375, L501.2300, L503.6550, L501.6710, L3400.8000, L501.5200, L3300.1200, L5500.0300, L100.0100, L3410.9998, L3300.0960, L504.2610, L803.2200, L500.4050, L3100.6900, L3200.0500, L3410.2400, L501.9520, L503.6150, L5500.0550, L101.9900 ####[facility] [address] [facility] [place], [place], [address] ELM,AMER WHITE <0.[address] [facility] Comment on above: Performed By: #### L 3200.1100, L3100.3425, L100.9950, L3100.1850, L800.1280, L503.0106, L3000.0375, L501.2300, L503.6550, L501.6710, L3400.8000, L501.5200, L3300.1200, L5500.0300, L100.0100, L3410.9998, L3300.0960, L504.2610, L803.2200, L500.4050, L3100.6900, L3200.0500, L3410.2400, L501.9520, L503.6150, L5500.0550, L101.9900 ####[facility] [address] [facility] [place], [address] Mouse Urine <0.[address] [facility] Comment on above: Result Comment: Perf ormed at: [address] [id number] Housekeeping Assistant: Tim Adkins PhD, Phone: [phone] Performed at: [address] [id number] Housekeeping Assistant: Antonio Liu MD, Phone: [phone] Performed By: #### L 3200.1100, L3100.3425, L100.9950, L3100.1850, L800.1280, L503.0106, L3000.0375, L501.2300, L503.6550, L501.6710, L3400.8000, L501.5200, L3300.1200, L5500.0300, L100.0100, L3410.9998, L3300.0960, L504.2610, L803.2200, L500.4050, L3100.6900, L3200.0500, L3410.2400, L501.9520, L503.6150, L5500.0550, L101.9900 ####[facility] [address] [facility] [place], [place], [address] [place], [place] <0.[address] [facility] Comment on above: Performed By: #### L 3200.1100, L3100.3425, L100.9950, L3100.1850, L800.1280, L503.0106, L3000.0375, L501.2300, L503.6550, L501.6710, L3400.8000, L501.5200, L3300.1200, L5500.0300, L100.0100, L3410.9998, L3300.0960, L504.2610, L803.2200, L500.4050, L3100.6900, L3200.0500, L3410.2400, L501.9520, L503.6150, L5500.0550, L101.9900 ####[facility] [address] [facility] [place], [place], [address] TIFFANIE,[facility] <0.[address] [facility] Comment on above: Performed By: #### L 3200.1100, L3100.3425, L100.9950, L3100.1850, L800.1280, L503.0106, L3000.0375, L501.2300, L503.6550, L501.6710, L3400.8000, L501.5200, L3300.1200, L5500.0300, L100.0100, L3410.9998, L3300.0960, L504.2610, L803.2200, L500.4050, L3100.6900, L3200.0500, L3410.2400, L501.9520, L503.6150, L5500.0550, L101.9900 ####[facility] [address] [place], [place], [id number] RAGWEED SH/COM <0.[address] [facility] Comment on above: Performed By: #### L 3200.1100, L3100.3425, L100.9950, L3100.1850, L800.1280, L503.0106, L3000.0375, L501.2300, L503.6550, L501.6710, L3400.8000, L501.5200, L3300.1200, L5500.0300, L100.0100, L3410.9998, L3300.0960, L504.2610, L803.2200, L500.4050, L3100.6900, L3200.0500, L3410.2400, L501.9520, L503.6150, L5500.0550, L101.9900 ####[facility] [address] [place], [place], [id number] Angiotensin Convert Enzymeon 10-03-2024 ANGIOT-CONV.ENZ 72 U/L Normal 14-82 [facility] Comment on above: Performed By: #### L 7000.0700, L7000.0750, M100.637, M100.0605, L7000.0300, M100.7900 #### [facility] [address] [place], [address] Anti-Mitochondrial ABon 04-0 ANTIMITOCHON AB <20.0 Normal 0.0-20.0 [facility] Comment on above: Result Comment: Nega tive 0.0 - 20.0 Equivocal 20.1 - 24.9 Positive >24.9 Mitochondrial (M2) Antibodies are found in 90-96% of patients with primary biliary cirrhosis. Performed By: #### L 3200.1100, L3100.3425, L100.9950, L3100.1850, L800.1280, L503.0106, L3000.0375, L501.2300, L503.6550, L501.6710, L3400.8000, L501.5200, L3300.1200, L5500.0300, L100.0100, L3410.9998, L3300.0960, L504.2610, L803.2200, L500.4050, L3100.6900, L3200.0500, L3410.2400, L501.9520, L503.6150, L5500.0550, L101.9900 ####[facility] [address] [facility] [place], [address] Anti-Smooth Muscle ABSon ANTISMOOTH MUSC 6 Units Normal 0-19 [facility] Comment on above: Result Comment: Nega tive 0 - 19 Weak positive 20 - 30 Moderate to strong positive >30 Actin Antibodies are found in 52-85% of patients with autoimmune hepatitis or chronic active hepatitis and in 22% of patients with primary biliary cirrhosis. Performed By: #### L 3200.1100, L3100.3425, L100.9950, L3100.1850, L800.1280, L503.0106, L3000.0375, L501.2300, L503.6550, L501.6710, L3400.8000, L501.5200, L3300.1200, L5500.0300, L100.0100, L3410.9998, L3300.0960, L504.2610, L803.2200, L500.4050, L3100.6900, L3200.0500, L3410.2400, L501.9520, L503.6150, L5500.0550, L101.9900 ####[facility] [address] [facility] [place], [address] Celiac Disease Profileon ENDOMYSIAL IGA Negative Normal Negative [facility] Comment on above: Performed By: #### L 3200.1100, L3100.3425, L100.9950, L3100.1850, L800.1280, L503.0106, L3000.0375, L501.2300, L503.6550, L501.6710, L3400.8000, L501.5200, L3300.1200, L5500.0300, L100.0100, L3410.9998, L3300.0960, L504.2610, L803.2200, L500.4050, L3100.6900, L3200.0500, L3410.2400, L501.9520, L503.6150, L5500.0550, L101.9900 ####[facility] [address] [place], [address] tTG IGA <2 Normal 0-3 [facility] Comment on above: Result Comment: Nega tive 0 - 3 Weak Positive 4 - 10 Positive >10 Tissue Transglutaminase (tTG) has been identified as the endomysial antigen. Studies have demonstr- ated that endomysial IgA antibodies have over 99% specificity for gluten sensitive enteropathy. Performed By: #### L 3200.1100, L3100.3425, L100.9950, L3100.1850, L800.1280, L503.0106, L3000.0375, L501.2300, L503.6550, L501.6710, L3400.8000, L501.5200, L3300.1200, L5500.0300, L100.0100, L3410.9998, L3300.0960, L504.2610, L803.2200, L500.4050, L3100.6900, L3200.0500, L3410.2400, L501.9520, L503.6150, L5500.0550, L101.9900 ####[facility] [address] [place], [address] Haptoglobinon 10-03-2024 HAPTOGLOBIN 111 mg/dL Normal 17-317 [facility] Comment on above: Result Comment: Perf ormed at: - [facility] [address] [id number] Housekeeping Assistant: Tim Adkins PhD, Phone: [phone] Performed at: - [facility] [address] [id number] Housekeeping Assistant: Antonio Liu MD, Phone: [phone] Performed By: #### L 7000.0700, L7000.0750, M100.637, M100.0605, L7000.0300, M100.7900 #### [facility] [address] [place], [place], [id number] Hepatitis Panel Acuteon COMMENT Comment Normal . [facility] Comment on above: Result Comment: Not infected with HCV unless early or acute infection is suspected (which may be delayed in an immunocompromised individual), or other evidence exists to indicate HCV infection. Performed By: #### L 3200.1100, L3100.3425, L100.9950, L3100.1850, L800.1280, L503.0106, L3000.0375, L501.2300, L503.6550, L501.6710, L3400.8000, L501.5200, L3300.1200, L5500.0300, L100.0100, L3410.9998, L3300.0960, L504.2610, L803.2200, L500.4050, L3100.6900, L3200.0500, L3410.2400, L501.9520, L503.6150, L5500.0550, L101.9900 ####[facility] [address] [place], [place], [id number] HEP B CORE,IgM Negative Normal Negative [facility] Comment on above: Performed By: #### L 3200.1100, L3100.3425, L100.9950, L3100.1850, L800.1280, L503.0106, L3000.0375, L501.2300, L503.6550, L501.6710, L3400.8000, L501.5200, L3300.1200, L5500.0300, L100.0100, L3410.9998, L3300.0960, L504.2610, L803.2200, L500.4050, L3100.6900, L3200.0500, L3410.2400, L501.9520, L503.6150, L5500.0550, L101.9900 ####[facility] [address] [place], [address] HEP B SURF AG Negative Normal Negative [facility] Comment on above: Performed By: #### L 3200.1100, L3100.3425, L100.9950, L3100.1850, L800.1280, L503.0106, L3000.0375, L501.2300, L503.6550, L501.6710, L3400.8000, L501.5200, L3300.1200, L5500.0300, L100.0100, L3410.9998, L3300.0960, L504.2610, L803.2200, L500.4050, L3100.6900, L3200.0500, L3410.2400, L501.9520, L503.6150, L5500.0550, L101.9900 ####[facility] [address] [facility] [place], [place], [id number] HEP C VIRUS AB Non-Reactive Normal Non Reactive [facility] Comment on above: Performed By: #### L 3200.1100, L3100.3425, L100.9950, L3100.1850, L800.1280, L503.0106, L3000.0375, L501.2300, L503.6550, L501.6710, L3400.8000, L501.5200, L3300.1200, L5500.0300, L100.0100, L3410.9998, L3300.0960, L504.2610, L803.2200, L500.4050, L3100.6900, L3200.0500, L3410.2400, L501.9520, L503.6150, L5500.0550, L101.9900 ####[facility] [address] [place], [address] HEPATITIS A-IgM Negative Normal Negative [facility] Comment on above: Result Comment: A ne gative anti-HAV IgM result suggests no recent or current HAV infection. Performed By: #### L 3200.1100, L3100.3425, L100.9950, L3100.1850, L800.1280, L503.0106, L3000.0375, L501.2300, L503.6550, L501.6710, L3400.8000, L501.5200, L3300.1200, L5500.0300, L100.0100, L3410.9998, L3300.0960, L504.2610, L803.2200, L500.4050, L3100.6900, L3200.0500, L3410.2400, L501.9520, L503.6150, L5500.0550, L101.9900 ####[facility] [address] [place], [address] DENISE + Protein Elect, Serumon 10-03-2024 Albumin [Mass/Vol] 4.3 g/dL Normal 2.9-4.4 [facility] Comment on above: Order Comment: [id number] Performed By: #### L 7000.0700, L7000.0750, M100.637, M100.0605, L7000.0300, M100.7900 #### [facility] [address] [place], [address] Albumin/Globulin [Mass ratio] 1.5 {ratio} Normal 0.7-1.7 [facility] Comment on above: Order Comment: [id number] Performed By: #### L 7000.0700, L7000.0750, M100.637, M100.0605, L7000.0300, M100.7900 #### [facility] [address] [place], [address] MGGKC-2-AUFP 0.2 g/dL Normal 0.0-0.4 [facility] Comment on above: Order Comment: [id number] Performed By: #### L 7000.0700, L7000.0750, M100.637, M100.0605, L7000.0300, M100.7900 #### [facility] [address] [place], [address] HNFKB-3-DLMZ 0.7 g/dL Normal 0.4-1.0 [facility] Comment on above: Order Comment: [id number] Performed By: #### L 7000.0700, L7000.0750, M100.637, M100.0605, L7000.0300, M100.7900 #### [facility] [address] [place], [address] BETA GLOBULIN 0.9 g/dL Normal 0.7-1.3 [facility] Comment on above: Order Comment: [id number] Performed By: #### L 7000.0700, L7000.0750, M100.637, M100.0605, L7000.0300, M100.7900 #### [facility] [address] [place], [address] GAMMA GLOBULIN 1.1 g/dL Normal 0.4-1.8 [facility] Comment on above: Order Comment: [id number] Performed By: #### L 7000.0700, L7000.0750, M100.637, M100.0605, L7000.0300, M100.7900 #### [facility] [address] [place], [address] Globulin (S) [Mass/Vol] 3.0 g/dL Normal 2.2-3.9 [facility] Comment on above: Order Comment: [id number] Performed By: #### L 7000.0700, L7000.0750, M100.637, M100.0605, L7000.0300, M100.7900 #### [facility] [address] [place], [place], [id number] ([phone]) DENISE RESULT,S Comment Normal . [facility] Comment on above: Order Comment: [id number] Result Comment: No m onoclonality detected. Performed By: #### L 7000.0700, L7000.0750, M100.637, M100.0605, L7000.0300, M100.7900 #### [facility] [address] [place], [address] IMMUNOGLOB A QN 141 mg/dL Normal 90-386 [facility] Comment on above: Order Comment: [id number] Performed By: #### L 7000.0700, L7000.0750, M100.637, M100.0605, L7000.0300, M100.7900 #### [facility] [address] [place], [place], [id number] IMMUNOGLOB M QN 82 mg/dL Normal 20-172 [facility] Comment on above: Order Comment: [id number] Performed By: #### L 7000.0700, L7000.0750, M100.637, M100.0605, L7000.0300, M100.7900 #### [facility] [address] [place], [address] M-Darío Not Observed Normal Not Observed [facility] Comment on above: Order Comment: [id number] Performed By: #### L 7000.0700, L7000.0750, M100.637, M100.0605, L7000.0300, M100.7900 #### [facility] [address] [place], [address] NOTE: Comment Normal . [facility] Comment on above: Order Comment: [id number] Result Comment: Prot ein electrophoresis scan will follow via computer, mail, or shank tapper delivery. Performed By: #### L 7000.0700, L7000.0750, M100.637, M100.0605, L7000.0300, M100.7900 #### [facility] [address] [place], [address] Protein [Mass/Vol] 7.3 g/dL Normal 6.0-8.5 [facility] Comment on above: Order Comment: [id number] Performed By: #### L 7000.0700, L7000.0750, M100.637, M100.0605, L7000.0300, M100.7900 #### [facility] [address] [place], [address] IgG Subclasseson 10-03-2024 IgG, SUBCLASS 1 607 mg/dL Normal 248-810 [facility] Comment on above: Performed By: #### L 7000.0700, L7000.0750, M100.637, M100.0605, L7000.0300, M100.7900 #### [facility] [address] [place], [address] IgG, SUBCLASS 2 197 mg/dL Normal 130-555 [facility] Comment on above: Performed By: #### L 7000.0700, L7000.0750, M100.637, M100.0605, L7000.0300, M100.7900 #### [facility] [address] [place], [address] IgG, SUBCLASS 3 62 mg/dL Normal 15-102 [facility] Comment on above: Performed By: #### L 7000.0700, L7000.0750, M100.637, M100.0605, L7000.0300, M100.7900 #### [facility] [address] [place], [address] IgG, SUBCLASS 4 30 mg/dL Normal 2-96 [facility] Comment on above: Performed By: #### L 7000.0700, L7000.0750, M100.637, M100.0605, L7000.0300, M100.7900 #### [facility] [address] [place], [address] IGG,QUANT 1117 mg/dL Normal 603-1613 [facility] Comment on above: Performed By: #### L 7000.0700, L7000.0750, M100.637, M100.0605, L7000.0300, M100.7900 #### [facility] [address] [place], [address] Immunoglobulins G/A/M/Juan IMMUNOGLOB E QN 79 IU/mL Normal 6-495 [facility] Comment on above: Order Comment: [id number] Performed By: #### L 7000.0700, L7000.0750, M100.637, M100.0605, L7000.0300, M100.7900 #### [facility] [address] [place], [address] L5500.0550on 10-03-2024 BEEF <0.[address] [facility] Comment on above: Performed By: #### L 3200.1100, L3100.3425, L100.9950, L3100.1850, L800.1280, L503.0106, L3000.0375, L501.2300, L503.6550, L501.6710, L3400.8000, L501.5200, L3300.1200, L5500.0300, L100.0100, L3410.9998, L3300.0960, L504.2610, L803.2200, L500.4050, L3100.6900, L3200.0500, L3410.2400, L501.9520, L503.6150, L5500.0550, L101.9900 ####[facility] [address] [place], [place], [id number] CHOCOLATE <0.[address] [facility] Comment on above: Performed By: #### L 3200.1100, L3100.3425, L100.9950, L3100.1850, L800.1280, L503.0106, L3000.0375, L501.2300, L503.6550, L501.6710, L3400.8000, L501.5200, L3300.1200, L5500.0300, L100.0100, L3410.9998, L3300.0960, L504.2610, L803.2200, L500.4050, L3100.6900, L3200.0500, L3410.2400, L501.9520, L503.6150, L5500.0550, L101.9900 ####[facility] [address] [facility] [place], [place], [id number] CODFISH <0.[address] [facility] Comment on above: Performed By: #### L 3200.1100, L3100.3425, L100.9950, L3100.1850, L800.1280, L503.0106, L3000.0375, L501.2300, L503.6550, L501.6710, L3400.8000, L501.5200, L3300.1200, L5500.0300, L100.0100, L3410.9998, L3300.0960, L504.2610, L803.2200, L500.4050, L3100.6900, L3200.0500, L3410.2400, L501.9520, L503.6150, L5500.0550, L101.9900 ####[facility] [address] [place], [place], [id number] CORN <0.[address] [facility] Comment on above: Performed By: #### L 3200.1100, L3100.3425, L100.9950, L3100.1850, L800.1280, L503.0106, L3000.0375, L501.2300, L503.6550, L501.6710, L3400.8000, L501.5200, L3300.1200, L5500.0300, L100.0100, L3410.9998, L3300.0960, L504.2610, L803.2200, L500.4050, L3100.6900, L3200.0500, L3410.2400, L501.9520, L503.6150, L5500.0550, L101.9900 ####[facility] [address] [place], [place], [address] EGG, WHOLE <0.[address] [facility] Comment on above: Performed By: #### L 3200.1100, L3100.3425, L100.9950, L3100.1850, L800.1280, L503.0106, L3000.0375, L501.2300, L503.6550, L501.6710, L3400.8000, L501.5200, L3300.1200, L5500.0300, L100.0100, L3410.9998, L3300.0960, L504.2610, L803.2200, L500.4050, L3100.6900, L3200.0500, L3410.2400, L501.9520, L503.6150, L5500.0550, L101.9900 ####[facility] [address] [place], [place], [id number] MILK (COW) <0.[address] [facility] Comment on above: Performed By: #### L 3200.1100, L3100.3425, L100.9950, L3100.1850, L800.1280, L503.0106, L3000.0375, L501.2300, L503.6550, L501.6710, L3400.8000, L501.5200, L3300.1200, L5500.0300, L100.0100, L3410.9998, L3300.0960, L504.2610, L803.2200, L500.4050, L3100.6900, L3200.0500, L3410.2400, L501.9520, L503.6150, L5500.0550, L101.9900 ####[facility] [address] [facility]. [place], [place], [id number] MUSSELS <0.[address] [facility] Comment on above: Performed By: #### L 3200.1100, L3100.3425, L100.9950, L3100.1850, L800.1280, L503.0106, L3000.0375, L501.2300, L503.6550, L501.6710, L3400.8000, L501.5200, L3300.1200, L5500.0300, L100.0100, L3410.9998, L3300.0960, L504.2610, L803.2200, L500.4050, L3100.6900, L3200.0500, L3410.2400, L501.9520, L503.6150, L5500.0550, L101.9900 ####[facility] [address] [facility]. [place], [place], [phone] PEANUT <0.[address] [facility] Comment on above: Performed By: #### L 3200.1100, L3100.3425, L100.9950, L3100.1850, L800.1280, L503.0106, L3000.0375, L501.2300, L503.6550, L501.6710, L3400.8000, L501.5200, L3300.1200, L5500.0300, L100.0100, L3410.9998, L3300.0960, L504.2610, L803.2200, L500.4050, L3100.6900, L3200.0500, L3410.2400, L501.9520, L503.6150, L5500.0550, L101.9900 ####[facility] [address] [place], [place], [id number] PORK <0.[address] [facility] Comment on above: Performed By: #### L 3200.1100, L3100.3425, L100.9950, L3100.1850, L800.1280, L503.0106, L3000.0375, L501.2300, L503.6550, L501.6710, L3400.8000, L501.5200, L3300.1200, L5500.0300, L100.0100, L3410.9998, L3300.0960, L504.2610, L803.2200, L500.4050, L3100.6900, L3200.0500, L3410.2400, L501.9520, L503.6150, L5500.0550, L101.9900 ####[facility] [address] [facility] [place], [place], [id number] SALMON <0.[address] [facility] Comment on above: Performed By: #### L 3200.1100, L3100.3425, L100.9950, L3100.1850, L800.1280, L503.0106, L3000.0375, L501.2300, L503.6550, L501.6710, L3400.8000, L501.5200, L3300.1200, L5500.0300, L100.0100, L3410.9998, L3300.0960, L504.2610, L803.2200, L500.4050, L3100.6900, L3200.0500, L3410.2400, L501.9520, L503.6150, L5500.0550, L101.9900 ####[facility] [address] [place], [place], [id number] SHRIMP <0.[address] [facility] Comment on above: Performed By: #### L 3200.1100, L3100.3425, L100.9950, L3100.1850, L800.1280, L503.0106, L3000.0375, L501.2300, L503.6550, L501.6710, L3400.8000, L501.5200, L3300.1200, L5500.0300, L100.0100, L3410.9998, L3300.0960, L504.2610, L803.2200, L500.4050, L3100.6900, L3200.0500, L3410.2400, L501.9520, L503.6150, L5500.0550, L101.9900 ####[facility] [address] [place], [address] SOYBEAN <0.[address] [facility] Comment on above: Performed By: #### L 3200.1100, L3100.3425, L100.9950, L3100.1850, L800.1280, L503.0106, L3000.0375, L501.2300, L503.6550, L501.6710, L3400.8000, L501.5200, L3300.1200, L5500.0300, L100.0100, L3410.9998, L3300.0960, L504.2610, L803.2200, L500.4050, L3100.6900, L3200.0500, L3410.2400, L501.9520, L503.6150, L5500.0550, L101.9900 ####[facility] [address] [place], [place], [id number] TUNA <0.[address] [facility] Comment on above: Performed By: #### L 3200.1100, L3100.3425, L100.9950, L3100.1850, L800.1280, L503.0106, L3000.0375, L501.2300, L503.6550, L501.6710, L3400.8000, L501.5200, L3300.1200, L5500.0300, L100.0100, L3410.9998, L3300.0960, L504.2610, L803.2200, L500.4050, L3100.6900, L3200.0500, L3410.2400, L501.9520, L503.6150, L5500.0550, L101.9900 ####[facility] [address] [place], [address] WHEAT <0.[address] [facility] Comment on above: Performed By: #### L 3200.1100, L3100.3425, L100.9950, L3100.1850, L800.1280, L503.0106, L3000.0375, L501.2300, L503.6550, L501.6710, L3400.8000, L501.5200, L3300.1200, L5500.0300, L100.0100, L3410.9998, L3300.0960, L504.2610, L803.2200, L500.4050, L3100.6900, L3200.0500, L3410.2400, L501.9520, L503.6150, L5500.0550, L101.9900 ####[facility] [address] [place], [address] Quantiferon TB-Gold+on 10-03 QFT MITOGEN REMA > 10.[address] [facility] Comment on above: Performed By: #### L 7000.0700, L7000.0750, M100.637, M100.0605, L7000.0300, M100.7900 #### [facility] [address] [place], [address] QFT NIL VALUE 0.06 IU/mL Normal . [facility] Comment on above: Performed By: #### L 7000.0700, L7000.0750, M100.637, M100.0605, L7000.0300, M100.7900 #### [facility] [address] [place], [address] QFT TB GOLD+ Comment Normal . [facility] Comment on above: Result Comment: Raul tiFERON-TB Gold Plus is a qualitative indirect test for M tuberculosis infection (including disease) and is intended for use in conjunction with risk assessment, radiography, and other medical and diagnostic evaluations. The QuantiFERON-TB Gold Plus result is determined by subtracting the Nil value from either TB antigen (Ag) value. The Mitogen tube serves as a control for the test. Performed By: #### L 7000.0700, L7000.0750, M100.637, M100.0605, L7000.0300, M100.7900 #### [facility] [address] [place], [address] QFT TB POS CRIT Negative Normal Negative [facility] Comment on above: Result Comment: No r esponse to M tuberculosis antigens detected. Infection with M tuberculosis is unlikely, but high risk individuals should be considered for additional testing (ATS/IDSA/CDC Clinical Practice Guidelines, 2017). The reference range is an Antigen minus Nil result of <0.35 IU/mL. The specimen received for QuantiFERON testing was incubated by the ordering institution. Specific procedures outlined in our Directory of Services and in the package insert for the QuantiFERON Gold (In Tube) test must be followed to enable for proper stimulation of cells for the production of interferon gamma. Chemiluminescence immunoassay methodology Performed By: #### L 7000.0700, L7000.0750, M100.637, M100.0605, L7000.0300, M100.7900 #### [facility] [address] [place], [address] QFT TB1+ AG REMA 0.05 IU/mL Normal . [facility] Comment on above: Performed By: #### L 7000.0700, L7000.0750, M100.637, M100.0605, L7000.0300, M100.7900 #### [facility] [address] [place], [address] QFT TB2+ AG REMA 0.06 IU/mL Normal . [facility] Comment on above: Performed By: #### L 7000.0700, L7000.0750, M100.637, M100.0605, L7000.0300, M100.7900 #### [facility] [address] [place], [address] Vitamin D 1,25-Dihydroxyon 0 10-03-2024 VIT D 1,25 DIHY 72.1 pg/mL Normal 24.8-81.5 [facility] Comment on above: Performed By: #### L 3200.1100, L3100.3425, L100.9950, L3100.1850, L800.1280, L503.0106, L3000.0375, L501.2300, L503.6550, L501.6710, L3400.8000, L501.5200, L3300.1200, L5500.0300, L100.0100, L3410.9998, L3300.0960, L504.2610, L803.2200, L500.4050, L3100.6900, L3200.0500, L3410.2400, L501.9520, L503.6150, L5500.0550, L101.9900 ####[facility] [address] [place], [address] [facility] Misc.on 10-02-2024 [facility] Misc. COMMENT Normal . [facility] Comment on above: Order Comment: [id number] 4USTEKINUMAB SERUM FRZ Result Comment: Test Ordered: [id number] Ustekinumab Drug + Antibody Ustekinumab 13 ug/mL ES Reference Range: . Quantitation Limit: <0.1 ug/mL Results of 0.1 ug/mL or higher indicate detection of ustekinumab. COMMENTS: - Induction levels in Crohn's Disease: - Patients who received IV 130 mg or 6 mg/kg had median trough concentrations of 2.1 ug/mL and 6.4 ug/mL, respectively, at week 8 in UNITI trials.(1) - Maintenance levels: - Of UNITI patients with trough levels greater than 1.1 ug/mL, about 80% achieved clinical remission (HBI < 5) and about 50% attained CRP normalization.(2) - Higher maintenance concentrations, greater than 4.5 ug/mL (achieved with q8wk or q4wk dosing after SQ induction), may be necessary for endoscopic response (SES-CD score reduction >=50%).(3) - Trough levels predictive of mucosal healing and fistula healing have yet to be determined. - In plaque psoriasis, median trough ustekinumab concentrations were 0.4 ug/mL at weeks 14 and 28 (ranging from undetectable to 3.6 ug/mL).(4) Although PASI50 responders had higher trough concentrations than non- responders in a study of 76 patients, a definitive therapeutic target range for psoriasis has yet to be established.(5) - As with other biologics, the optimal drug concentration depends upon patient-specific factors including co- morbidities, disease and desired therapeutic endpoint - This ustekinumab drug assay measures the free fraction of ustekinumab (antibody-unbound ustekinumab) when serum anti-ustekinumab antibodies are present. Anti-Ustekinumab Antibody <40 ng/mL ES Reference Range: . Quantitation Limit: < 40 ng/mL Results of 40 ng/mL or higher indicate detection of anti- ustekinumab antibodies. COMMENTS: - This anti-ustekinumab antibody assay is drug-tolerant, i.e. the detection of anti-ustekinumab antibodies is not impeded by the presence of ustekinumab in serum. - All positive anti-ustekinumab antibody results are verified by a confirmatory test. - The concomitant free ustekinumab drug concentration (reported above) is the pharmacodynamically active drug when anti-ustekinumab antibodies are present. - Serial measurements over time may be helpful to assess the impact of immunogenicity on the free drug level. - In the IM-UNITI trial, the incidence of anti-ustekinumab antibodies in Crohn's Disease at 1 year was 2.3%.(1) - In psoriasis, anti-ustekinumab antibodies occurred in 4-6% of patients.(6) References: 1. Josué GONZALEZ, et al. Gastroenterology 2016;150(4):S408. 2. Josué Smith et al. P007 Exposure-Response to SC Ustekinumab in Moderate - Severe Crohn's Disease: Results from the IM-UNITI Maintenance Study. Advances in AIBD. March 2017. 3. Kuldip R, et al. Clin Gastroenterol Hepatol 2017;15: 2752-8064. 4. Marianna SP, et al. Br J Dermatol;2015:173;855-857. 5. Kassy H, et al. PLOS ONE DOI;10:1371/journal.pone.1587205. 6. Myrtle L, et al. Br J Dermatol 2014;170:261-273. These tests were developed and their performance characteristics determined by [facility]. They have not been cleared or approved by the Food and Drug Administration. However, both drug and anti-drug antibody assays have been developed and validated in accordance with FDA Guidance for Industry documents: Bioanalytical Method Validation (2013) and Assay Development and Validation for Immunogenicity Testing of Therapeutic Protein Products (2016). Performed at: [facility] [address] [place] [id number] Housekeeping Assistant: Gary Kaba MD, Phone: [phone] Performed at: [address] [id number] Housekeeping Assistant: Tim Adkins PhD, Phone: [phone] Performed By: #### L 3200.1100, L3100.3425, L100.9950, L3100.1850, L800.1280, L503.0106, L3000.0375, L501.2300, L503.6550, L501.6710, L3400.8000, L501.5200, L3300.1200, L5500.0300, L100.0100, L3410.9998, L3300.0960, L504.2610, L803.2200, L500.4050, L3100.6900, L3200.0500, L3410.2400, L501.9520, L503.6150, L5500.0550, L101.9900 ####[facility] [address] [place], [address] COMPLETE BLOOD COUNT WITH DI FFERENTIALon 09-28-2024 Basophil \\P\\ 0.02 10E3/???L Invalid Interpretation Code 0.02-0.06 [facility] Comment on above: Order Comment: Relea se to patient->Automatic Basophils/100 WBC (Bld) 0.4 % Invalid Interpretation Code 0.3-1.0 [facility] Comment on above: Order Comment: Relea se to patient->Automatic Eosinophil \\P\\ 0.11 10E3/???L Invalid Interpretation Code 0.04-0.31 [facility] Comment on above: Order Comment: Relea se to patient->Automatic Eosinophils/100 WBC (Bld) 2.1 % Invalid Interpretation Code 0.7-4.6 [facility] Comment on above: Order Comment: Relea se to patient->Automatic Erythrocyte distribution width (RBC) [Ratio] 12.0 % Invalid Interpretation Code 11.9-13.5 [facility] Comment on above: Order Comment: Relea se to patient->Automatic Hematocrit (Bld) [Volume fraction] 40.4 % Low 40.6-50.2 [facility] Comment on above: Order Comment: Relea se to patient->Automatic Hemoglobin (Bld) [Mass/Vol] 13.9 g/dL Invalid Interpretation Code 13.5-17.0 [facility] Comment on above: Order Comment: Relea se to patient->Automatic Immature granulocytes/100 WBC (Bld) 0.2 % Invalid Interpretation Code 0.2-0.5 [facility] Comment on above: Order Comment: Relea se to patient->Automatic Result Comment: Jillian ture Granulocyte Percent includes promyelocytes, myelocytes,and metamyelocytes. IG% > 1.0 indicates a left shift is present. With automated differentials, bands are included in the neutrophil count and not in the Immature Granulocyte Percent. Lymphocyte \\P\\ 1.77 10E3/???L Invalid Interpretation Code 1.39-2.72 [facility] Comment on above: Order Comment: Relea se to patient->Automatic Lymphocytes/100 WBC (Bld) 33.9 % Invalid Interpretation Code 20.0-42.9 [facility] Comment on above: Order Comment: Relea se to patient->Automatic MCH (RBC) [Entitic mass] 29.8 pg Invalid Interpretation Code 27.3-31.2 [facility] Comment on above: Order Comment: Relea se to patient->Automatic MCHC 34.4 % Invalid Interpretation Code 32.1-34.8 [facility] Comment on above: Order Comment: Relea se to patient->Automatic MCV (RBC) [Entitic vol] 86.7 fL Invalid Interpretation Code 82.8-92.0 [facility] Comment on above: Order Comment: Relea se to patient->Automatic Monocyte \\P\\ 0.46 10E3/???L Invalid Interpretation Code 0.38-0.83 [facility] Comment on above: Order Comment: Relea se to patient->Automatic Monocytes/100 WBC (Bld) 8.8 % Invalid Interpretation Code 6.5-11.5 [facility] Comment on above: Order Comment: Relea se to patient->Automatic Neutrophil \\P\\ 2.85 10E3/???L Invalid Interpretation Code 2.07-6.00 [facility] Comment on above: Order Comment: Relea se to patient->Automatic Neutrophils/100 WBC (Bld) 54.6 % Invalid Interpretation Code 43.5-69.0 [facility] Comment on above: Order Comment: Relea se to patient->Automatic Nucleated RBC/100 WBC (Bld) [Ratio] 0.0 % Invalid Interpretation Code 0.0-0.0 [facility] Comment on above: Order Comment: Relea se to patient->Automatic Platelet mean volume (Bld) [Entitic vol] 9.2 fL Low 9.6-11.8 [facility] Comment on above: Order Comment: Relea se to patient->Automatic Result Comment: MPV is platelet range and age dependent. Platelets 200 10E3/???L Invalid Interpretation Code 150-400 [facility] Comment on above: Order Comment: Relea se to patient->Automatic RBC 4.66 10E6/???L Invalid Interpretation Code 4.59-5.58 [facility] Comment on above: Order Comment: Relea se to patient->Automatic WBC 5.2 10E3/???L Invalid Interpretation Code 4.5-9.6 [facility] Comment on above: Order Comment: Relea se to patient->Automatic COMPREHENSIVE METABOLIC PANE Ravi 09-28-2024 Albumin [Mass/Vol] 4.0 g/dL Invalid Interpretation Code 3.5-5.0 [facility] Comment on above: Order Comment: Relea se to patient->Automatic ALP [Catalytic activity/Vol] 48 U/L Invalid Interpretation Code 40-129 [facility] Comment on above: Order Comment: Relea se to patient->Automatic ALT [Catalytic activity/Vol] 19 U/L Invalid Interpretation Code <=46 [facility] Comment on above: Order Comment: Relea se to patient->Automatic AST [Catalytic activity/Vol] 22 U/L Invalid Interpretation Code <=37 [facility] Comment on above: Order Comment: Relea se to patient->Automatic BILI,TOTAL 0.6 mg/dL Invalid Interpretation Code <=1.0 [facility] Comment on above: Order Comment: Relea se to patient->Automatic Calcium [Mass/Vol] 9.0 mg/dL Invalid Interpretation Code 7.6-11.0 [facility] Comment on above: Order Comment: Relea se to patient->Automatic Chloride [Moles/Vol] 108 mmol/L Invalid Interpretation Code 96-108 [facility] Comment on above: Order Comment: Relea se to patient->Automatic CO2 [Moles/Vol] 23.4 mmol/L Invalid Interpretation Code 22.0-29.0 [facility] Comment on above: Order Comment: Relea se to patient->Automatic Creatinine [Mass/Vol] 0.90 mg/dL Invalid Interpretation Code 0.70-1.20 [facility] Comment on above: Order Comment: Relea se to patient->Automatic GFR/1.73 sq M.predicted among non-blacks MDRD (S/P/Bld) [Vol rate/Area] mL/min/{1.73_m2} Invalid Interpretation Code >=60 [facility] Comment on above: Order Comment: Relea se to patient->Automatic Glucose [Mass/Vol] 88 mg/dL Invalid Interpretation Code 70-99 [facility] Comment on above: Order Comment: Relea se to patient->Automatic Result Comment: Patricia hernandez for Diagnosis of Diabetes: Fasting Specimen (no caloric intake for at least 8 hours): <100 mg/dL Normal 100-125 mg/dL Increased risk for Diabetes >125 mg/dL Diagnostic for Diabetes Random Glucose (any time of day without regard to last meal): > or = 200 mg/dL plus Classic Symptoms of Diabetes Potassium [Moles/Vol] 4.1 mmol/L Invalid Interpretation Code 3.3-5.1 [facility] Comment on above: Order Comment: Relea se to patient->Automatic Protein [Mass/Vol] 6.3 g/dL Invalid Interpretation Code 5.9-8.4 [facility] Comment on above: Order Comment: Relea se to patient->Automatic Sodium [Moles/Vol] 139 mmol/L Invalid Interpretation Code 133-145 [facility] Comment on above: Order Comment: Relea se to patient->Automatic Urea nitrogen [Mass/Vol] 11 mg/dL Invalid Interpretation Code 4-19 [facility] Comment on above: Order Comment: Relea se to patient->Automatic Complete Blood CountOrdered By: Saida Brothers on 09-28-2024 Basophils (Bld) [#/Vol] 0.02 10*3/uL [facility] Basophils/100 WBC (Bld) 0.4 % 0.3 - 1.0 % [facility] Eosinophils (Bld) [#/Vol] 0.11 10*3/uL [facility] Eosinophils/100 WBC (Bld) 2.1 % 0.7 - 4.6 % [facility] Erythrocyte distribution width (RBC) [Ratio] 12 % 11.9 - 13.5 % [facility] Hematocrit (Bld) [Volume fraction] 40.4 % Low 40.6 - 50.2 % [facility] Hemoglobin (Bld) [Mass/Vol] 13.9 g/dL 13.5 - 17.0 g/dL [facility] Immature granulocytes/100 WBC (Bld) 0.2 % 0.2 - 0.5 % [facility] Comment on above: Immature Granulocyte Percent includes promyelocytes, myelocytes,and metamyelocytes. IG% > 1.0 indicates a left shift is present. With automated differentials, bands are included in the neutrophil count and not in the Immature Granulocyte Percent. Interpretation and review of laboratory results Abnormal [facility] Lymphocytes (Bld) [#/Vol] 1.77 10*3/uL [facility] Lymphocytes/100 WBC (Bld) 33.9 % 20.0 - 42.9 % [facility] MCH (RBC) [Entitic mass] 29.8 pg 27.3 - 31.2 pg [facility] MCHC (RBC) [Mass/Vol] 34.4 % 32.1 - 34.8 % [facility] MCV (RBC) [Entitic vol] 86.7 fL 82.8 - 92.0 fL [facility] Monocytes (Bld) [#/Vol] 0.46 10*3/uL [facility] Monocytes/100 WBC (Bld) 8.8 % 6.5 - 11.5 % [facility] Neutrophils (Bld) [#/Vol] 2.85 10*3/uL [facility] Neutrophils/100 WBC (Bld) 54.6 % 43.5 - 69.0 % [facility] Nucleated RBC/100 WBC (Bld) [Ratio] 0 % 0.0 - 0.0 % [facility] Platelet mean volume (Bld) [Entitic vol] 9.2 fL Low 9.6 - 11.8 fL [facility] Comment on above: MPV is platelet rang e and age dependent. Platelets (Bld) [#/Vol] 200 10*3/uL [facility] RBC (Bld) [#/Vol] 4.66 10*6/uL [facility] WBC (Bld) [#/Vol] 5.2 10*3/uL [facility] Comprehensive metabolic pane lOrdered By: Background Lab on 09-28-2024 Albumin BCG dye [Mass/Vol] 4 g/dL 3.5 - 5.0 g/dL [facility] ALP [Catalytic activity/Vol] 48 U/L 40 - 129 U/L [facility] ALT With P-5'-P [Catalytic activity/Vol] 19 U/L NINF - 46 U/L [facility] AST With P-5'-P [Catalytic activity/Vol] 22 U/L NINF - 37 U/L [facility] Bilirubin [Mass/Vol] 0.6 mg/dL NINF - 1.0 mg/dL [facility] Calcium [Mass/Vol] 9 mg/dL 7.6 - 11. 0 mg/dL [facility] Chloride [Moles/Vol] 108 mmol/L 96 - 10 8 mmol/L [facility] Creatinine [Mass/Vol] 0.9 mg/dL 0.70 - 1.20 mg/dL [facility] eGFR - PINF [facility] Glucose [Mass/Vol] 88 mg/dL 70 - 99 mg/dL [facility] Comment on above: Criteria for Diagnos is of Diabetes: Fasting Specimen (no caloric intake for at least 8 hours): <100 mg/dL Normal 100-125 mg/dL Increased risk for Diabetes >125 mg/dL Diagnostic for Diabetes Random Glucose (any time of day without regard to last meal): > or = 200 mg/dL plus Classic Symptoms of Diabetes HCO3 (P) [Moles/Vol] 23.4 mmol/L 22.0 - 29.0 mmol/L [facility] Interpretation and review of laboratory results Normal [facility] Potassium (BldA) [Moles/Vol] 4.1 mmol/L 3.3 - 5.1 mmol/L [facility] Protein [Mass/Vol] 6.3 g/dL 5.9 - 8.4 g/dL [facility] Sodium [Moles/Vol] 139 mmol/L 133 - 145 mmol/L [facility] Urea nitrogen [Mass/Vol] 11 mg/dL 4 - 19 mg/dL [facility] ERYTHROCYTE SEDIMENTATION RA Courtney 09-28-2024 ESR (Bld) [Velocity] 2 mm/h Invalid Interpretation Code [facility] Comment on above: Order Comment: Relea se to patient->Automatic Result Comment: [place] orn: 0-2 mm/hr to puberty: 3-13 mm/hr Less than 50 years old: Male: <15 mm/hr Female: <20 mm/hr Greater than 50 years old: Male: <20 mm/hr Female: <30 mm/hr Erythrocyte Sedimentation Ra teOrdered By: Nerissa Bates on 09-28-2024 ESR Photometric method (Bld) [Velocity] 2 mm/hr [facility] Comment on above: [place]: 0-2 mm/hr [place] to puberty: 3-13 mm/hr Less than 50 years old: Male: <15 mm/hr Female: <20 mm/hr Greater than 50 years old: Male: <20 mm/hr Female: <30 mm/hr [facility] QUANTIFERON TB GOLDon 2024 Mitogen minus NIL 1.79 IU/mL Invalid Interpretation Code [facility] Comment on above: Order Comment: Relea se to patient->Automatic Quantiferon TB Gold Negative Invalid Interpretation Code Negative [facility] Comment on above: Order Comment: Relea se to patient->Automatic TB1 minus NIL 0.00 IU/mL Invalid Interpretation Code -0.50-0.34 [facility] Comment on above: Order Comment: Relea se to patient->Automatic TB2 minus NIL 0.01 IU/mL Invalid Interpretation Code -0.50-0.34 [facility] Comment on above: Order Comment: Relea se to patient->Automatic URINALYSIS, COMPLETEon 09-28 Bilirubin Ql (U) Negative Invalid Interpretation Code Negative [facility] Comment on above: Order Comment: Relea se to patient->Automatic Character Clear Invalid Interpretation Code [facility] Comment on above: Order Comment: Relea se to patient->Automatic Color (U) Light Yellow Invalid Interpretation Code [facility] Comment on above: Order Comment: Relea se to patient->Automatic Epithelial cells.squamous LM.HPF (Urine sed) [#/Area] 0 /[HPF] Invalid Interpretation Code <=2 [facility] Comment on above: Order Comment: Relea se to patient->Automatic Glucose Ql (U) Normal Invalid Interpretation Code Normal [facility] Comment on above: Order Comment: Relea se to patient->Automatic Ketones Ql (U) Negative Invalid Interpretation Code Negative [facility] Comment on above: Order Comment: Relea se to patient->Automatic Leukocyte esterase Test strip Ql (U) Negative Invalid Interpretation Code Negative [facility] Comment on above: Order Comment: Relea se to patient->Automatic Mucous Small Invalid Interpretation Code Neg-Small [facility] Comment on above: Order Comment: Relea se to patient->Automatic Nitrite Ql (U) Negative Invalid Interpretation Code Negative [facility] Comment on above: Order Comment: Relea se to patient->Automatic pH (U) 5.5 [pH] Invalid Interpretation Code 5.0-8.0 [facility] Comment on above: Order Comment: Relea se to patient->Automatic Protein Ql (U) Negative Invalid Interpretation Code Neg.-Trace [facility] Comment on above: Order Comment: Relea se to patient->Automatic RBC (U) [#/Vol] /uL Invalid Interpretation Code <=2 [facility] Comment on above: Order Comment: Relea se to patient->Automatic Renal Epithelial Cells 0 /HPF Invalid Interpretation Code <=2 [facility] Comment on above: Order Comment: Relea se to patient->Automatic Specific gravity (U) [Rel density] 1.012 Invalid Interpretation Code Reference Range: 1.005-1.030 [facility] Comment on above: Order Comment: Relea se to patient->Automatic Transitional Epithelial Cells 0 /HPF Invalid Interpretation Code <=2 [facility] Comment on above: Order Comment: Relea se to patient->Automatic Urobilinogen Normal Invalid Interpretation Code Normal [facility] Comment on above: Order Comment: Relea se to patient->Automatic Volume 12 mL Invalid Interpretation Code [facility] Comment on above: Order Comment: Relea se to patient->Automatic WBC (U) [#/Vol] /uL Invalid Interpretation Code <=2 [facility] Comment on above: Order Comment: Denise gongora to patient->Automatic Urinalysis, completeOrdered By: Susan Keitaabdoulayetamera on 09-28-2024 Bilirubin Ql (U) Negative Negative [facility] Character Clear [facility] Color (U) Light Yellow [facility] Epithelial cells.renal Computer assisted (U) [#/Area] 0 [facility] Epithelial cells.squamous Auto (Urine sed) [#/Area] 0 [facility] Glucose Auto test strip Ql (U) Normal Normal [facility] Hemoglobin Auto test strip Ql (U) Negative Negative [facility] Ketones (U) [Mass/Vol] Negative Negative [facility] Leukocyte esterase Auto test strip Ql (U) Negative Negative Yrn/uL [facility] Mucus Auto Ql (U) Small Neg-Small [facility] Nitrite Ql (U) Negative Negative [facility] pH (U) 5.5 [pH] 5.0 - 8.0 [facility] Protein (U) [Mass/Vol] Negative Neg.-Trace [facility] RBC Auto (Urine sed) [#/Area] [facility] Specific gravity Refractometry automated (U) [Rel density] 1.012 Reference Range: 1.005-1.030 [facility] Specimen volume (U) 12 mL [facility] Transitional cells Computer assisted (U) [#/Area] 0 [facility] Urobilinogen (U) [Mass/Vol] Normal Normal mg/dL [facility] WBC Auto (Urine sed) [#/Area] [facility] VITAMIN D 1,25 DIHYDROXYon 0 09-28-2024 Vitamin D, 1,25-Dihydroxy 42 pg/mL Invalid Interpretation Code 18-64 [facility] Comment on above: Order Comment: Denise gongora to patient->Automatic Result Comment: ADDITIONAL INFORMATION This test was developed and its performance characteristics determined by [facility] in a manner consistent with CLIA requirements. This test has not been cleared or approved by the U.S. Food and Drug Administration. Test Performed by: [facility] [address] [place] [address] Housekeeping Assistant: Alex Guadarrama Ph.D.; CLIA# [id number] 1,25-dihydroxyvitamin D3 [Ma ss/Vol]Ordered By: Hunter Ceja on 09-25-2024 Vitamin D 1,25-Dihydroxy 72.1 pg/mL 24.8-81.5 [facility] Absolute neutrophil countOrd ered By: Hunter Ceja on 09-25-2024 Neutrophils (Bld) [#/Vol] 2.9 10*3/uL 2.0-7.7 [facility] Actin IgG QnOrdered By: Anastacio Mendoza on 09-25-2024 Anti-Smooth Muscle Antibody 6 Units 0-19 [facility] Comment on above: Negative 0 - 19 Weak positive 20 - 30 Moderate to strong positive >30 Actin Antibodies are found in 52-85% of patients with autoimmune hepatitis or chronic active hepatitis and in 22% of patients with primary biliary cirrhosis. Addendum DocumentOrdered By: Hunter Ceja on 09-25-2024 Serum Immunofixation Comments Comment . [facility] Comment on above: Protein electrophore sis scan will follow via computer,mail, or shank tapper delivery. Albumin Elph [Mass/Vol]Order ed By: Hunter Ceja on 09-25-2024 Albumin [Mass/Vol] 4.3 g/dL 2.9-4.4 [facility] Alpha 1 globulin Elph [Mass/ Vol]Ordered By: Hunter Ceja on 09-25-2024 Gofro-4-Zwsqcmcei (DENISE) 0.2 g/dL 0.0-0.4 [facility] Xuoqi-3-Fmqqhjvas (DENISE) 0.7 g/dL 0.4-1.0 [facility] Alternaria alternata IgE ser umOrdered By: Hunter Ceja on 09-25-2024 Alternaria alternata IgE Allergen <0.10 kU/L Class 0 [facility] Anion gap in Serum or Plasma Ordered By: Hunter Ceja on 09-25-2024 Anion gap [Moles/Vol] 13 mmol/L 5-15 [facility] Atypical perinuclear antineu trophil cytoplasmic antibodies measurementOrdered By: Hunter Ceja on 09-25-2024 Atypical p-ANCA 1:40 titer High Neg:<1:20 [facility] Comment on above: The atypical pANCA p attern has been observed in asignificant percentage of patients with ulcerative colitis,primary sclerosing cholangitis and autoimmune hepatitis. BUN/creatinine ratioOrdered By: Hunter Ceja on 09-25-2024 Urea nitrogen/Creatinine [Mass ratio] 12.7 mg/mg 10-20 [facility] Basophil percentageOrdered B y: Hunter Ceja on 09-25-2024 Basophils/100 WBC (Bld) 0.4 % 0-1 [facility] Beef IgE Qn (S)Ordered By: Be Ceja on 09-25-2024 Beef Allergen (RAST) <0.10 kU/L Class 0 [facility] Bermuda grass IgE Qn (S)Orde red By: Hunter Ceja on 09-25-2024 Bermuda Grass Allergen <0.10 kU/L Class 0 [facility] Beta globulin Elph [Mass/Vol ]Ordered By: Hunter Ceja on 09-25-2024 Beta-Globulins (DENISE) 0.9 g/dL 0.7-1.3 [facility] Bilirubin, totalOrdered By: Hunter Ceja on 09-25-2024 Bilirubin [Mass/Vol] 1.04 mg/dL 0.00-1.30 [facility] CBC W/Diff, Automatedon 08-28 Absolute Lymph 1.52 X10 3/uL Normal 0.83-4.51 [facility] Comment on above: Performed By: #### L 3200.1100, L3100.3425, L100.9950, L3100.1850, L800.1280, L503.0106, L3000.0375, L501.2300, L503.6550, L501.6710, L3400.8000, L501.5200, L3300.1200, L5500.0300, L100.0100, L3410.9998, L3300.0960, L504.2610, L803.2200, L500.4050, L3100.6900, L3200.0500, L3410.2400, L501.9520, L503.6150, L5500.0550, L101.9900 ####[facility] [address] [place], [place], [phone] Absolute Neut 2.9 X10 3/uL Normal 2.0-7.7 [facility] Comment on above: Performed By: #### L 3200.1100, L3100.3425, L100.9950, L3100.1850, L800.1280, L503.0106, L3000.0375, L501.2300, L503.6550, L501.6710, L3400.8000, L501.5200, L3300.1200, L5500.0300, L100.0100, L3410.9998, L3300.0960, L504.2610, L803.2200, L500.4050, L3100.6900, L3200.0500, L3410.2400, L501.9520, L503.6150, L5500.0550, L101.9900 ####[facility] [address] [place], [place], [phone] Basophils/100 WBC (Bld) 0.4 % Normal 0-1 [facility] Comment on above: Performed By: #### L 3200.1100, L3100.3425, L100.9950, L3100.1850, L800.1280, L503.0106, L3000.0375, L501.2300, L503.6550, L501.6710, L3400.8000, L501.5200, L3300.1200, L5500.0300, L100.0100, L3410.9998, L3300.0960, L504.2610, L803.2200, L500.4050, L3100.6900, L3200.0500, L3410.2400, L501.9520, L503.6150, L5500.0550, L101.9900 ####[facility] [address] [facility] [place], [place], [phone] Eosinophils/100 WBC (Bld) 0.8 % Normal 0-5 [facility] Comment on above: Performed By: #### L 3200.1100, L3100.3425, L100.9950, L3100.1850, L800.1280, L503.0106, L3000.0375, L501.2300, L503.6550, L501.6710, L3400.8000, L501.5200, L3300.1200, L5500.0300, L100.0100, L3410.9998, L3300.0960, L504.2610, L803.2200, L500.4050, L3100.6900, L3200.0500, L3410.2400, L501.9520, L503.6150, L5500.0550, L101.9900 ####[facility] [address] [facility] [place], [place], [phone] Erythrocyte distribution width (RBC) [Ratio] 12.2 % Normal 11.6-14.6 [facility] Comment on above: Performed By: #### L 3200.1100, L3100.3425, L100.9950, L3100.1850, L800.1280, L503.0106, L3000.0375, L501.2300, L503.6550, L501.6710, L3400.8000, L501.5200, L3300.1200, L5500.0300, L100.0100, L3410.9998, L3300.0960, L504.2610, L803.2200, L500.4050, L3100.6900, L3200.0500, L3410.2400, L501.9520, L503.6150, L5500.0550, L101.9900 ####[facility] [address] [place], [place], [phone] Hematocrit (Bld) [Volume fraction] 45.5 % Normal 40-54 [facility] Comment on above: Performed By: #### L 3200.1100, L3100.3425, L100.9950, L3100.1850, L800.1280, L503.0106, L3000.0375, L501.2300, L503.6550, L501.6710, L3400.8000, L501.5200, L3300.1200, L5500.0300, L100.0100, L3410.9998, L3300.0960, L504.2610, L803.2200, L500.4050, L3100.6900, L3200.0500, L3410.2400, L501.9520, L503.6150, L5500.0550, L101.9900 ####[facility] [address] [place], [address] Hemoglobin (Bld) [Mass/Vol] 16.2 g/dL Normal 13.0-16.5 [facility] Comment on above: Performed By: #### L 3200.1100, L3100.3425, L100.9950, L3100.1850, L800.1280, L503.0106, L3000.0375, L501.2300, L503.6550, L501.6710, L3400.8000, L501.5200, L3300.1200, L5500.0300, L100.0100, L3410.9998, L3300.0960, L504.2610, L803.2200, L500.4050, L3100.6900, L3200.0500, L3410.2400, L501.9520, L503.6150, L5500.0550, L101.9900 ####[facility] [address] [place], [address] IG% 0.200 Normal 0.0-0.9 [facility] Comment on above: Result Comment: IG% - Immature Granulocytes (promyelocytes, myelocytes and metamyelocytes) > 1% indicates that a LEFT SHIFT is Present. Performed By: #### L 3200.1100, L3100.3425, L100.9950, L3100.1850, L800.1280, L503.0106, L3000.0375, L501.2300, L503.6550, L501.6710, L3400.8000, L501.5200, L3300.1200, L5500.0300, L100.0100, L3410.9998, L3300.0960, L504.2610, L803.2200, L500.4050, L3100.6900, L3200.0500, L3410.2400, L501.9520, L503.6150, L5500.0550, L101.9900 ####[facility] [address] [place], [place], [phone] Lymphocytes/100 WBC (Bld) 31.0 % Normal 19-41 [facility] Comment on above: Performed By: #### L 3200.1100, L3100.3425, L100.9950, L3100.1850, L800.1280, L503.0106, L3000.0375, L501.2300, L503.6550, L501.6710, L3400.8000, L501.5200, L3300.1200, L5500.0300, L100.0100, L3410.9998, L3300.0960, L504.2610, L803.2200, L500.4050, L3100.6900, L3200.0500, L3410.2400, L501.9520, L503.6150, L5500.0550, L101.9900 ####[facility] [address] [place], [address] MCH (RBC) [Entitic mass] 30.3 pg Normal 27.0-32.0 [facility] Comment on above: Performed By: #### L 3200.1100, L3100.3425, L100.9950, L3100.1850, L800.1280, L503.0106, L3000.0375, L501.2300, L503.6550, L501.6710, L3400.8000, L501.5200, L3300.1200, L5500.0300, L100.0100, L3410.9998, L3300.0960, L504.2610, L803.2200, L500.4050, L3100.6900, L3200.0500, L3410.2400, L501.9520, L503.6150, L5500.0550, L101.9900 ####[facility] [address] [facility]. [place], [place], [phone] MCHC (RBC) [Mass/Vol] 35.6 g/dL Normal 32-36 [facility] Comment on above: Performed By: #### L 3200.1100, L3100.3425, L100.9950, L3100.1850, L800.1280, L503.0106, L3000.0375, L501.2300, L503.6550, L501.6710, L3400.8000, L501.5200, L3300.1200, L5500.0300, L100.0100, L3410.9998, L3300.0960, L504.2610, L803.2200, L500.4050, L3100.6900, L3200.0500, L3410.2400, L501.9520, L503.6150, L5500.0550, L101.9900 ####[facility] [address] [place], [address] MCV (RBC) [Entitic vol] 85.2 fL Normal 80-94 [facility] Comment on above: Performed By: #### L 3200.1100, L3100.3425, L100.9950, L3100.1850, L800.1280, L503.0106, L3000.0375, L501.2300, L503.6550, L501.6710, L3400.8000, L501.5200, L3300.1200, L5500.0300, L100.0100, L3410.9998, L3300.0960, L504.2610, L803.2200, L500.4050, L3100.6900, L3200.0500, L3410.2400, L501.9520, L503.6150, L5500.0550, L101.9900 ####[facility] [address] [place], [address] Monocytes/100 WBC (Bld) 8.4 % Normal 0-10 [facility] Comment on above: Performed By: #### L 3200.1100, L3100.3425, L100.9950, L3100.1850, L800.1280, L503.0106, L3000.0375, L501.2300, L503.6550, L501.6710, L3400.8000, L501.5200, L3300.1200, L5500.0300, L100.0100, L3410.9998, L3300.0960, L504.2610, L803.2200, L500.4050, L3100.6900, L3200.0500, L3410.2400, L501.9520, L503.6150, L5500.0550, L101.9900 ####[facility] [address] [facility] [place], [address] Neutrophils/100 WBC (Bld) 59.2 % Normal 47-70 [facility] Comment on above: Performed By: #### L 3200.1100, L3100.3425, L100.9950, L3100.1850, L800.1280, L503.0106, L3000.0375, L501.2300, L503.6550, L501.6710, L3400.8000, L501.5200, L3300.1200, L5500.0300, L100.0100, L3410.9998, L3300.0960, L504.2610, L803.2200, L500.4050, L3100.6900, L3200.0500, L3410.2400, L501.9520, L503.6150, L5500.0550, L101.9900 ####[facility] [address] [place], [place], [phone] Nucleated RBC (Bld) [#/Vol] 0 10*3/uL Normal 0-5 [facility] Comment on above: Performed By: #### L 3200.1100, L3100.3425, L100.9950, L3100.1850, L800.1280, L503.0106, L3000.0375, L501.2300, L503.6550, L501.6710, L3400.8000, L501.5200, L3300.1200, L5500.0300, L100.0100, L3410.9998, L3300.0960, L504.2610, L803.2200, L500.4050, L3100.6900, L3200.0500, L3410.2400, L501.9520, L503.6150, L5500.0550, L101.9900 ####[facility] [address] [facility] [place], [place], [phone] Platelet mean volume (Bld) [Entitic vol] 8.6 fL Normal 6.2-12.0 [facility] Comment on above: Performed By: #### L 3200.1100, L3100.3425, L100.9950, L3100.1850, L800.1280, L503.0106, L3000.0375, L501.2300, L503.6550, L501.6710, L3400.8000, L501.5200, L3300.1200, L5500.0300, L100.0100, L3410.9998, L3300.0960, L504.2610, L803.2200, L500.4050, L3100.6900, L3200.0500, L3410.2400, L501.9520, L503.6150, L5500.0550, L101.9900 ####[facility] [address] [facility] [address] [place], [place], [phone] Platelets (Bld) [#/Vol] 184 10*3/uL Normal 150-450 [facility] Comment on above: Performed By: #### L 3200.1100, L3100.3425, L100.9950, L3100.1850, L800.1280, L503.0106, L3000.0375, L501.2300, L503.6550, L501.6710, L3400.8000, L501.5200, L3300.1200, L5500.0300, L100.0100, L3410.9998, L3300.0960, L504.2610, L803.2200, L500.4050, L3100.6900, L3200.0500, L3410.2400, L501.9520, L503.6150, L5500.0550, L101.9900 ####[facility] [address] [facility] [place], [place], [address] RBC (Bld) [#/Vol] 5.34 10*6/uL Normal 4.6-6.2 [facility] Comment on above: Performed By: #### L 3200.1100, L3100.3425, L100.9950, L3100.1850, L800.1280, L503.0106, L3000.0375, L501.2300, L503.6550, L501.6710, L3400.8000, L501.5200, L3300.1200, L5500.0300, L100.0100, L3410.9998, L3300.0960, L504.2610, L803.2200, L500.4050, L3100.6900, L3200.0500, L3410.2400, L501.9520, L503.6150, L5500.0550, L101.9900 ####[facility] [address] [facility] [place], [place], [phone] RDW SD 37.8 fl Normal 35.1-43.9 [facility] Comment on above: Performed By: #### L 3200.1100, L3100.3425, L100.9950, L3100.1850, L800.1280, L503.0106, L3000.0375, L501.2300, L503.6550, L501.6710, L3400.8000, L501.5200, L3300.1200, L5500.0300, L100.0100, L3410.9998, L3300.0960, L504.2610, L803.2200, L500.4050, L3100.6900, L3200.0500, L3410.2400, L501.9520, L503.6150, L5500.0550, L101.9900 ####[facility] [address] [facility] [place], [place], [phone] WBC (Bld) [#/Vol] 4.9 10*3/uL Normal 4.4-11.0 [facility] Comment on above: Performed By: #### L 3200.1100, L3100.3425, L100.9950, L3100.1850, L800.1280, L503.0106, L3000.0375, L501.2300, L503.6550, L501.6710, L3400.8000, L501.5200, L3300.1200, L5500.0300, L100.0100, L3410.9998, L3300.0960, L504.2610, L803.2200, L500.4050, L3100.6900, L3200.0500, L3410.2400, L501.9520, L503.6150, L5500.0550, L101.9900 ####[facility] [address] [facility] [place], [place], [phone] CRPon 09-25-2024 C-REACTIVE PROT 3.56 mg/L High 0.0-3.0 [facility] Comment on above: Performed By: #### L 3200.1100, L3100.3425, L100.9950, L3100.1850, L800.1280, L503.0106, L3000.0375, L501.2300, L503.6550, L501.6710, L3400.8000, L501.5200, L3300.1200, L5500.0300, L100.0100, L3410.9998, L3300.0960, L504.2610, L803.2200, L500.4050, L3100.6900, L3200.0500, L3410.2400, L501.9520, L503.6150, L5500.0550, L101.9900 ####[facility] [address] [place], [place], [id number] CRP [Mass/Vol]Ordered By: Ra case Ceja on 09-25-2024 C-Reactive Protein Extended Range 3.56 mg/L High 0.0-3.0 [facility] Carbon dioxide, total [Moles /volume] in Central venous bloodOrdered By: Hunter Ceja on 09-25-2024 CO2 [Moles/Vol] 23.1 mmol/L 21.0-32.0 [facility] Cat dander IgE Qn (S)Ordered By: Hunter Ceja on 09-25-2024 Cat Dander IgE Allergen <0.10 kU/L Class 0 [facility] Chloride assayOrdered By: Ra case Ceja on 09-25-2024 Chloride [Moles/Vol] 101 mmol/L 98-108 [facility] Chocolate IgE serumOrdered B y: Hunter Ceja on 09-25-2024 Chocolate Allergen (RAST) <0.10 kU/L Class 0 [facility] Codfish IgE Qn (S)Ordered By : Hunter Ceja on 09-25-2024 Codfish Allergen (RAST) <0.10 kU/L Class 0 [facility] Comprehensive Metabolic Prof ilon 09-25-2024 Albumin [Mass/Vol] 4.9 g/dL Normal 3.5-5.0 [facility] Comment on above: Order Comment: [id number] Performed By: #### L 3200.1100, L3100.3425, L100.9950, L3100.1850, L800.1280, L503.0106, L3000.0375, L501.2300, L503.6550, L501.6710, L3400.8000, L501.5200, L3300.1200, L5500.0300, L100.0100, L3410.9998, L3300.0960, L504.2610, L803.2200, L500.4050, L3100.6900, L3200.0500, L3410.2400, L501.9520, L503.6150, L5500.0550, L101.9900 ####[facility] [address] [facility] [place], [address] Albumin/Globulin [Mass ratio] 1.6 {ratio} Normal 0.9-2.4 [facility] Comment on above: Order Comment: [id number] Performed By: #### L 3200.1100, L3100.3425, L100.9950, L3100.1850, L800.1280, L503.0106, L3000.0375, L501.2300, L503.6550, L501.6710, L3400.8000, L501.5200, L3300.1200, L5500.0300, L100.0100, L3410.9998, L3300.0960, L504.2610, L803.2200, L500.4050, L3100.6900, L3200.0500, L3410.2400, L501.9520, L503.6150, L5500.0550, L101.9900 ####[facility] [address] [facility] [place], [address] ALK PHOS 63 U/L Normal 40-129 [facility] Comment on above: Order Comment: [id number] 4 Performed By: #### L 3200.1100, L3100.3425, L100.9950, L3100.1850, L800.1280, L503.0106, L3000.0375, L501.2300, L503.6550, L501.6710, L3400.8000, L501.5200, L3300.1200, L5500.0300, L100.0100, L3410.9998, L3300.0960, L504.2610, L803.2200, L500.4050, L3100.6900, L3200.0500, L3410.2400, L501.9520, L503.6150, L5500.0550, L101.9900 ####[facility] [address] [facility] [place], [address] ALT [Catalytic activity/Vol] 35 U/L Normal <=46 [facility] Comment on above: Order Comment: [id number] 4 Performed By: #### L 3200.1100, L3100.3425, L100.9950, L3100.1850, L800.1280, L503.0106, L3000.0375, L501.2300, L503.6550, L501.6710, L3400.8000, L501.5200, L3300.1200, L5500.0300, L100.0100, L3410.9998, L3300.0960, L504.2610, L803.2200, L500.4050, L3100.6900, L3200.0500, L3410.2400, L501.9520, L503.6150, L5500.0550, L101.9900 ####[facility] [address] [facility] [place], [place], [id number] AST [Catalytic activity/Vol] 38 U/L Normal <=37 [facility] Comment on above: Order Comment: [id number] 4 Performed By: #### L 3200.1100, L3100.3425, L100.9950, L3100.1850, L800.1280, L503.0106, L3000.0375, L501.2300, L503.6550, L501.6710, L3400.8000, L501.5200, L3300.1200, L5500.0300, L100.0100, L3410.9998, L3300.0960, L504.2610, L803.2200, L500.4050, L3100.6900, L3200.0500, L3410.2400, L501.9520, L503.6150, L5500.0550, L101.9900 ####[facility] [address] [facility]. [place], [place], [id number] Bilirubin [Mass/Vol] 1.04 mg/dL Normal 0.00-1.30 [facility] Comment on above: Order Comment: [id number] 4 Performed By: #### L 3200.1100, L3100.3425, L100.9950, L3100.1850, L800.1280, L503.0106, L3000.0375, L501.2300, L503.6550, L501.6710, L3400.8000, L501.5200, L3300.1200, L5500.0300, L100.0100, L3410.9998, L3300.0960, L504.2610, L803.2200, L500.4050, L3100.6900, L3200.0500, L3410.2400, L501.9520, L503.6150, L5500.0550, L101.9900 ####[facility] [address] [facility] [place], [place], [id number] BUN/CRE 12.7 RATIO Normal 10-20 [facility] Comment on above: Order Comment: [id number] 4 Performed By: #### L 3200.1100, L3100.3425, L100.9950, L3100.1850, L800.1280, L503.0106, L3000.0375, L501.2300, L503.6550, L501.6710, L3400.8000, L501.5200, L3300.1200, L5500.0300, L100.0100, L3410.9998, L3300.0960, L504.2610, L803.2200, L500.4050, L3100.6900, L3200.0500, L3410.2400, L501.9520, L503.6150, L5500.0550, L101.9900 ####[facility] [address] [place], [place], [id number] Calcium [Mass/Vol] 9.7 mg/dL Normal 7.6-11.0 [facility] Comment on above: Order Comment: [id number] 4 Performed By: #### L 3200.1100, L3100.3425, L100.9950, L3100.1850, L800.1280, L503.0106, L3000.0375, L501.2300, L503.6550, L501.6710, L3400.8000, L501.5200, L3300.1200, L5500.0300, L100.0100, L3410.9998, L3300.0960, L504.2610, L803.2200, L500.4050, L3100.6900, L3200.0500, L3410.2400, L501.9520, L503.6150, L5500.0550, L101.9900 ####[facility] [facility] [address] [facility] [place], [place], [phone] Chloride [Moles/Vol] 101 mmol/L Normal 98-108 [facility] Comment on above: Order Comment: [id number] 4 Performed By: #### L 3200.1100, L3100.3425, L100.9950, L3100.1850, L800.1280, L503.0106, L3000.0375, L501.2300, L503.6550, L501.6710, L3400.8000, L501.5200, L3300.1200, L5500.0300, L100.0100, L3410.9998, L3300.0960, L504.2610, L803.2200, L500.4050, L3100.6900, L3200.0500, L3410.2400, L501.9520, L503.6150, L5500.0550, L101.9900 ####[facility] [address] [facility]. [place], [place], [id number] CO2 [Moles/Vol] 23.1 mmol/L Normal 21.0-32.0 [facility] Comment on above: Order Comment: [id number] 4 Performed By: #### L 3200.1100, L3100.3425, L100.9950, L3100.1850, L800.1280, L503.0106, L3000.0375, L501.2300, L503.6550, L501.6710, L3400.8000, L501.5200, L3300.1200, L5500.0300, L100.0100, L3410.9998, L3300.0960, L504.2610, L803.2200, L500.4050, L3100.6900, L3200.0500, L3410.2400, L501.9520, L503.6150, L5500.0550, L101.9900 ####[facility] [address] [facility] [place], [place], [id number] Creatinine [Mass/Vol] 0.97 mg/dL Normal 0.70-1.20 [facility] Comment on above: Order Comment: [id number] 4 Performed By: #### L 3200.1100, L3100.3425, L100.9950, L3100.1850, L800.1280, L503.0106, L3000.0375, L501.2300, L503.6550, L501.6710, L3400.8000, L501.5200, L3300.1200, L5500.0300, L100.0100, L3410.9998, L3300.0960, L504.2610, L803.2200, L500.4050, L3100.6900, L3200.0500, L3410.2400, L501.9520, L503.6150, L5500.0550, L101.9900 ####[facility] [address] [facility]. [place], [place], [address] GAP 13 Normal 5-15 [facility] Comment on above: Order Comment: [id number] 4 Performed By: #### L 3200.1100, L3100.3425, L100.9950, L3100.1850, L800.1280, L503.0106, L3000.0375, L501.2300, L503.6550, L501.6710, L3400.8000, L501.5200, L3300.1200, L5500.0300, L100.0100, L3410.9998, L3300.0960, L504.2610, L803.2200, L500.4050, L3100.6900, L3200.0500, L3410.2400, L501.9520, L503.6150, L5500.0550, L101.9900 ####[facility] [address] [facility] [place], [address] GFR/1.73 sq M.predicted among non-blacks MDRD (S/P/Bld) [Vol rate/Area] 112 mL/min/{1.73_m2} Normal >60 [facility] Comment on above: Order Comment: [id number] 4 Result Comment: mL/m in/1.73m2 CKD-EPI Creatinine Equation (2020) Performed By: #### L 3200.1100, L3100.3425, L100.9950, L3100.1850, L800.1280, L503.0106, L3000.0375, L501.2300, L503.6550, L501.6710, L3400.8000, L501.5200, L3300.1200, L5500.0300, L100.0100, L3410.9998, L3300.0960, L504.2610, L803.2200, L500.4050, L3100.6900, L3200.0500, L3410.2400, L501.9520, L503.6150, L5500.0550, L101.9900 ####[facility] [address] [place], [address] Globulin (S) [Mass/Vol] 3.1 g/dL Normal 2.2-4.2 [facility] Comment on above: Order Comment: [id number] 4 Performed By: #### L 3200.1100, L3100.3425, L100.9950, L3100.1850, L800.1280, L503.0106, L3000.0375, L501.2300, L503.6550, L501.6710, L3400.8000, L501.5200, L3300.1200, L5500.0300, L100.0100, L3410.9998, L3300.0960, L504.2610, L803.2200, L500.4050, L3100.6900, L3200.0500, L3410.2400, L501.9520, L503.6150, L5500.0550, L101.9900 ####[facility] [address] [place], [place], [phone](194) Glucose [Mass/Vol] 86 mg/dL Normal 70-99 [facility] Comment on above: Order Comment: [id number] 4 Performed By: #### L 3200.1100, L3100.3425, L100.9950, L3100.1850, L800.1280, L503.0106, L3000.0375, L501.2300, L503.6550, L501.6710, L3400.8000, L501.5200, L3300.1200, L5500.0300, L100.0100, L3410.9998, L3300.0960, L504.2610, L803.2200, L500.4050, L3100.6900, L3200.0500, L3410.2400, L501.9520, L503.6150, L5500.0550, L101.9900 ####[facility] [address] [place], [place], [phone](551) Potassium [Moles/Vol] 3.9 mmol/L Normal 3.3-5.1 [facility] Comment on above: Order Comment: [id number] 4 Performed By: #### L 3200.1100, L3100.3425, L100.9950, L3100.1850, L800.1280, L503.0106, L3000.0375, L501.2300, L503.6550, L501.6710, L3400.8000, L501.5200, L3300.1200, L5500.0300, L100.0100, L3410.9998, L3300.0960, L504.2610, L803.2200, L500.4050, L3100.6900, L3200.0500, L3410.2400, L501.9520, L503.6150, L5500.0550, L101.9900 ####[facility] [address] [facility] [place], [address](508) Sodium [Moles/Vol] 138 mmol/L Normal 133-145 [facility] Comment on above: Order Comment: [id number] 4 Performed By: #### L 3200.1100, L3100.3425, L100.9950, L3100.1850, L800.1280, L503.0106, L3000.0375, L501.2300, L503.6550, L501.6710, L3400.8000, L501.5200, L3300.1200, L5500.0300, L100.0100, L3410.9998, L3300.0960, L504.2610, L803.2200, L500.4050, L3100.6900, L3200.0500, L3410.2400, L501.9520, L503.6150, L5500.0550, L101.9900 ####[facility] [address] [place], [address](817) T PROT 8.0 g/dL Normal 5.9-8.4 [facility] Comment on above: Order Comment: [id number] 4 Performed By: #### L 3200.1100, L3100.3425, L100.9950, L3100.1850, L800.1280, L503.0106, L3000.0375, L501.2300, L503.6550, L501.6710, L3400.8000, L501.5200, L3300.1200, L5500.0300, L100.0100, L3410.9998, L3300.0960, L504.2610, L803.2200, L500.4050, L3100.6900, L3200.0500, L3410.2400, L501.9520, L503.6150, L5500.0550, L101.9900 ####[facility] [address] [place], [address] Urea nitrogen [Mass/Vol] 12 mg/dL Normal 4-19 [facility] Comment on above: Order Comment: [id number] 4 Performed By: #### L 3200.1100, L3100.3425, L100.9950, L3100.1850, L800.1280, L503.0106, L3000.0375, L501.2300, L503.6550, L501.6710, L3400.8000, L501.5200, L3300.1200, L5500.0300, L100.0100, L3410.9998, L3300.0960, L504.2610, L803.2200, L500.4050, L3100.6900, L3200.0500, L3410.2400, L501.9520, L503.6150, L5500.0550, L101.9900 ####[facility] [address] [facility] [place], [address] Grant IgE Qn (S)Ordered By: Be garcia Friend on 09-25-2024 Grant Allergen (RAST) <0.10 kU/L Class 0 [facility] Cow milk IgE Qn (S)Ordered B y: Hunter Friend on 09-25-2024 Cow's Milk Allergen <0.10 kU/L Class 0 [facility] Dog epithelium IgE Qn (S)Ord ered By: Hunter Ceja on 09-25-2024 Dog Epithelia Allergen <0.10 kU/L Class 0 [facility] Endomysial IgA antibody assa yOrdered By: Hunter Ceja on 09-25-2024 Endomysial IgA Antibody Negative Negative [facility] Eosinophil percentageOrdered By: Hunter Ceja on 09-25-2024 Eosinophils/100 WBC (Bld) 0.8 % 0-5 [facility] Erythrocyte Sed Rateon 09-25 SED RATE 5 mm/hr Normal 0-20 [facility] Comment on above: Performed By: #### L 3200.1100, L3100.3425, L100.9950, L3100.1850, L800.1280, L503.0106, L3000.0375, L501.2300, L503.6550, L501.6710, L3400.8000, L501.5200, L3300.1200, L5500.0300, L100.0100, L3410.9998, L3300.0960, L504.2610, L803.2200, L500.4050, L3100.6900, L3200.0500, L3410.2400, L501.9520, L503.6150, L5500.0550, L101.9900 ####[facility] [address] [place], [place], [phone] Erythrocyte distribution wid th (RBC) [Ratio]Ordered By: Hunter Ceja on 09-25-2024 Erythrocyte distribution width (RBC) [Entitic vol] 37.8 fL 35.1-43.9 [facility] Erythrocyte distribution wid th ratioOrdered By: Hunter Ceja on 09-25-2024 Erythrocyte distribution width (RBC) [Ratio] 12.2 % 11.6-14.6 [facility] Erythrocyte sedimentation ra teOrdered By: Hunter Ceja on 09-25-2024 ESR (Bld) [Velocity] 5 mm/h 0-20 [facility] house dust mite IgE Qn (S)Ordered By: Hunter Ceja on 09-25-2024 Dermatophagoides pteronyss Allergen 0.25 kU/L High Class 0/I [facility] Ferritinon 09-25-2024 Ferritin [Mass/Vol] 273 ng/mL Normal 37-417 [facility] Comment on above: Performed By: #### L 3200.1100, L3100.3425, L100.9950, L3100.1850, L800.1280, L503.0106, L3000.0375, L501.2300, L503.6550, L501.6710, L3400.8000, L501.5200, L3300.1200, L5500.0300, L100.0100, L3410.9998, L3300.0960, L504.2610, L803.2200, L500.4050, L3100.6900, L3200.0500, L3410.2400, L501.9520, L503.6150, L5500.0550, L101.9900 ####[facility] [address] [place], [place], [phone] GFR/1.73 sq M.predicted phan g non-blacks MDRD (S/P/Bld) [Vol rate/Area]Ordered By: Hunter Ceja on 09-25-2024 Estimated GFR (MDRD) Non-Af Amer 112 >60 [facility] Comment on above: mL/min/1.73m2 CKD-EP I Creatinine Equation (2020) Gamma globulin Elph [Mass/Vo l]Ordered By: Hunter Ceja on 09-25-2024 Gamma Globulins (DENISE) 1.1 g/dL 0.4-1.8 [facility] Gastroenterology Visit Repor ton 09-25-2024 Gastroenterology Visit Report [facility] [address] [place] [address] OFFICE VISIT Date of Service: 09/25/24 MR#: [id number] Acct: [id number] Name: MC RICE Rep #: [id number] : 2000 Provider: Hunter Friend, DO Age/Sex: 24/M Location: [facility] Status: Signed Intake Vital Signs 09/25/24 09:10 Weight: 175 lb Intake Visit Reasons: CROHN'S, OTHER Accompanied by: Mother Is patient in pain?: No Allergies No Known Allergies Allergy (Unverified 09/25/24 08:43) Medications ???Medication ???Instructions ???Recorded ???Confirmed ???Type cetirizine 10 mg capsule (Zyrtec) 10 mg PO QDAY 09/25/24 09/25/24 H istory cholecalciferol (vitamin D3) 1,250 1,250 mcg PO QWEEK 09/25/2408/28 History mcg (50,000 unit) capsule mesalamine 0.375 gram 1.125 g PO BID 09/25/24 09/25/24 H istory capsule,extended release 24 hr nabumetone 500 mg tablet 1,000 mg PO QDAY 09/25/24 09/25/24 History omeprazole 20 mg capsule,delayed 20 mg PO QDAY 09/25/24 09/25/24 Hi story release promethazine 12.5 mg tablet 12.5 mg PO Q6H PRN 09/25/24 History rituximab 10 mg/mL See Rx Instructions .Route .COMPLE X 09/25/24 09/25/24 History concentrate,intravenous ustekinumab 90 mg/mL subcutaneous 90 mg subcut Q5W 09/25/24 5 History syringe (Stelara) PFSH Medical History (Updated 09/25/24 @ 13:28 by Didi Richardson) Rheumatoid arthritis Family History (Updated 09/25/24 @ 13:32 by Didi Richardson) Sister Anxiety Mother Arthritis Grandmother Arthritis Autoimmune disorder Hypertension Hyperlipemia Grandfather COPD (chronic obstructive pulmonary disease) Aunt Breast cancer Depression Social History (Updated 09/25/24 @ 13:29 by Didi Richardson) Smoking Status: Never smoker alcohol intake: never substance use type: marijuana what type of physical activity do you participate in: other details: physical therapy HPI HPI Details: MC RICE, is a 24 M who presents to the office today for initial consult. *BGI established 09.25.24 pt presents today to transfer care from [facility]. Pt has a long history of IBD and RA. Pt reports he was diagnosed with RA when he was 3 and is taking Rituximab infusions for this. Pt was diagnosed with IBD around 2019 and is on Mesalamine and Stelara Q5W. Pt reports his last colonoscopy was 6104-3928. Reports he has "flares" every few months. Pt reports daily nausea. States that he has alternating bowel movements and states that when he gets constipated that usually means he is about to have a flare. ROS Const Constitutional: Positive for fatigue and weight change (weight loss); No fever(s) ENT ENT: No difficulty swallowing Gastro GI: Positive for abdominal pain, bloating, change in bowel habits, constipation, diarrhea, excessive flatus, Blood in stool, nausea/dyspepsia and vomiting; No belching, change in stool character, coffee ground emesis, cramping, heartburn, difficulty swallowing, feeling full early, incontinent of stools, Vomiting blood/hematemesis, loose stools, Black,tarry stools, pain with swallowing or other Musc Musculoskeletal: Positive for joint pain, joint swelling, stiffness and Arthritis Skin Skin: No yellowing of the eye or itchy eyes Psych Psychiatric: No anxiety and No depression Endo Endocrine: Positive for fatigue and weight change (weight loss) Aller/Imm Allergy/Immunologic: No itchy eyes Herbert/Lymp Hematologic/Lymphatic: No easy bleeding or easy bruising Exam Const General: cooperative, healthy appearing, comfortable and well developed Nutritional Appearance: well nourished Orientation: oriented x3 [facility] Head: normal to inspection Ears: hearing grossly normal bilaterally Nose: external nose normal Mouth: oral mucosae normal Teeth and gingiva: dentition normal Eyes Sclera: sclerae normal Neck Neck: normal visual inspection Chest Chest palpation inspection: normal inspection of the chest Resp Effort Inspection: normal respiratory effort and able to speak in complete sentences Auscultation: Bilateral: Clear to Auscultation Cardio Heart Sounds: S1 normal and S2 normal GI Inspection: normal to inspection Auscultation: normal bowel sounds Percussion: normal to percussion Palpation: no hepatosplenomegaly Skin General: no rashes or lesions noted Neuro General: patient oriented x3 Extrem General: normal to inspection and no clubbing, cyanosis or edema Psych Appearance: well kempt Mental Status: mental status grossly normal Speech and Movement: speech and movement normal Assessment and Plan Assessment and Plan (1) Crohn disease: Status: Acute Plan: Mc is a pleasant 24-year-old with a longstanding history of complicated rheumatoid arthritis which was diagnosed (more content not included)... Normal [facility] HBV surface Ag IA QlOrdered By: Hunter Ceja on 09-25-2024 Hepatitis B Surface Antigen Negative Negative [facility] HaptoglobinOrdered By: Leigha Ceja on 09-25-2024 Haptoglobin 111 mg/dL 17-317 [facility] Comment on above: Performed at: [employer] [address] [id number] Director: Tim Adkins PhD, Phone: [phone] at: [employer] [address] [id number] Director: Antonio Liu MD, Phone: [phone] Hematocrit Auto (Bld) [Volum e fraction]Ordered By: Hunter Ceja on 09-25-2024 Hematocrit (Bld) [Volume fraction] 45.5 % 40-54 [facility] Hemoglobin (Reticulocytes) [ Entitic mass]Ordered By: Hunter Ceja on 09-25-2024 Reticulocyte Hemoglobin Equivalent 33.0 pg 30-35 [facility] Hemoglobin measurementOrdere d By: Hunter Ceja on 09-25-2024 Hemoglobin (Bld) [Mass/Vol] 16.2 g/dL 13.0-16.5 [facility] Hepatitis A virus IgM antibo dy assayOrdered By: Hunter Ceja on 09-25-2024 Hepatitis A IgM Antibody Negative Negative [facility] Comment on above: A negative anti-HAV IgM result suggests no recent orcurrent HAV infection. Hepatitis B virus core IgM a ntibody assayOrdered By: Hunter Ceja on 09-25-2024 Hepatitis B Core IgM Antibody Negative Negative [facility] Hepatitis C virus antibody a ssayOrdered By: Hunter Ceja on 09-25-2024 Hepatitis C Antibody (EIA) Non-Reactive Non Reactive [facility] IgA [Mass/Vol]Ordered By: Ra case Ceja on 09-25-2024 Immunoglobulin A 141 mg/dL 90-386 [facility] IgEOrdered By: Hunter mayer on 09-25-2024 Immunoglobulin E 79 IU/mL 6-495 [facility] IgG [Mass/Vol]Ordered By: Ra case Ceja on 09-25-2024 Immunoglobulin G Not Reportable [facility] Immunoglobulin G Total 1117 mg/dL 603-1613 [facility] IgG subclass 1 (S) [Mass/Vol ]Ordered By: Hunter Ceja on 09-25-2024 Immunoglobulin G1 607 mg/dL 248-810 [facility] IgG subclass 2 (S) [Mass/Vol ]Ordered By: Hunter Ceja on 09-25-2024 Immunoglobulin G2 197 mg/dL 130-555 [facility] IgG subclass 3 (S) [Mass/Vol ]Ordered By: Hunter Ceja on 09-25-2024 Immunoglobulin G3 62 mg/dL 15-102 [facility] Immature granulocytes/100 WB C Auto (Bld)Ordered By: Hunter Ceja on 09-25-2024 Immature granulocytes/100 WBC (Bld) 0.200 % 0.0-0.9 [facility] Comment on above: IG% - Immature Granu locytes (promyelocytes, myelocytes and metamyelocytes) > 1% indicates that a LEFT SHIFT is Present. Immature reticulocyte fracti onOrdered By: Hunter Ceja on 09-25-2024 Immature Reticulocyte Fraction 2.80 % Low 3.00-15.90 [facility] Immunoglobulin G4 measuremen tOrdered By: Hunter Ceja on 09-25-2024 Immunoglobulin G4 30 mg/dL 2-96 [facility] Immunoglobulin M measurement Ordered By: Hunter Ceja on 09-25-2024 Immunoglobulin M 82 mg/dL 20-172 [facility] Interpretation IEP [Interp]O rdered By: Hunter Ceja on 09-25-2024 Immunofixation Screen Comment . [facility] Comment on above: No monoclonality det ected. Ironon 09-25-2024 Iron [Mass/Vol] 198 ug/dL High 65-175 [facility] Comment on above: Order Comment: [id number] Performed By: #### L 3200.1100, L3100.3425, L100.9950, L3100.1850, L800.1280, L503.0106, L3000.0375, L501.2300, L503.6550, L501.6710, L3400.8000, L501.5200, L3300.1200, L5500.0300, L100.0100, L3410.9998, L3300.0960, L504.2610, L803.2200, L500.4050, L3100.6900, L3200.0500, L3410.2400, L501.9520, L503.6150, L5500.0550, L101.9900 ####[facility] [address] [place], [place], [phone] Iron (Unsp spec) [Mass/Mass] Ordered By: Hunter Ceja on 09-25-2024 Iron [Mass/Vol] 198 ug/dL High 65-175 [facility] [place] grass IgE Qn ( S)Ordered By: Hunter Ceja on 09-25-2024 [facility] ([facility] Grass IgE Ab <0.10 kU/L Class 0 [facility] L503.0106on 09-25-2024 Cobalamin (Vitamin B12) [Mass/Vol] 484 pg/mL Normal 180-914 [facility] Comment on above: Performed By: #### L 3200.1100, L3100.3425, L100.9950, L3100.1850, L800.1280, L503.0106, L3000.0375, L501.2300, L503.6550, L501.6710, L3400.8000, L501.5200, L3300.1200, L5500.0300, L100.0100, L3410.9998, L3300.0960, L504.2610, L803.2200, L500.4050, L3100.6900, L3200.0500, L3410.2400, L501.9520, L503.6150, L5500.0550, L101.9900 ####[facility] [address] [place], [place], [phone] LDHon 09-25-2024 LDH 185 U/L Normal 87-241 [facility] Comment on above: Order Comment: [id number] Performed By: #### L 3200.1100, L3100.3425, L100.9950, L3100.1850, L800.1280, L503.0106, L3000.0375, L501.2300, L503.6550, L501.6710, L3400.8000, L501.5200, L3300.1200, L5500.0300, L100.0100, L3410.9998, L3300.0960, L504.2610, L803.2200, L500.4050, L3100.6900, L3200.0500, L3410.2400, L501.9520, L503.6150, L5500.0550, L101.9900 ####[facility] [address] [place], [place], [id number] Laboratory - Chemistry and C hemistry - challengeOrdered By: Hunter Ceja on 09-25-2024 AST [Catalytic activity/Vol] 38 U/L <38 [facility] Lactate dehydrogenase (LDH) measurementOrdered By: Hunter Ceja on 09-25-2024 LDH [Catalytic activity/Vol] 185 U/L 87-241 [facility] Lymphocytes Auto (Unsp spec) [#/Vol]Ordered By: Hunter Ceja on 09-25-2024 Lymphocytes (Bld) [#/Vol] 1.52 10*3/uL 0.83-4.51 [facility] Lymphocytes/100 WBC Auto (Un sp spec)Ordered By: Hunter Ceja on 09-25-2024 Lymphocytes/100 WBC (Bld) 31.0 % 19-41 [facility] M. tuberculosis tuberculin s domenic IFN-g Ql (Bld)Ordered By: Hunter Ceja on 09-25-2024 TB Test (QFT) Antigen 1 0.05 IU/mL . [facility] MCV (mean corpuscular volume ) determinationOrdered By: Hunter Ceja on 03-31-2025 MCV (RBC) [Entitic vol] 85.2 fL 80-94 [facility] Magnesiumon 09-25-2024 Magnesium [Mass/Vol] 2.2 mg/dL Normal 1.5-2.2 [facility] Comment on above: Performed By: #### L 3200.1100, L3100.3425, L100.9950, L3100.1850, L800.1280, L503.0106, L3000.0375, L501.2300, L503.6550, L501.6710, L3400.8000, L501.5200, L3300.1200, L5500.0300, L100.0100, L3410.9998, L3300.0960, L504.2610, L803.2200, L500.4050, L3100.6900, L3200.0500, L3410.2400, L501.9520, L503.6150, L5500.0550, L101.9900 ####[facility] [address] [place], [address] Magnesium (Unsp spec) [Mass/ Vol]Ordered By: Hunter Ceja on 09-25-2024 Magnesium [Mass/Vol] 2.2 mg/dL 1.5-2.2 [facility] Mean corpuscular hemoglobin (MCH) determinationOrdered By: Hunter Ceja on 09-25-2024 MCH (RBC) [Entitic mass] 30.3 pg 27.0-32.0 [facility] Mean corpuscular hemoglobin concentration (MCHC) determinationOrdered By: Hunter Ceja on 09-25-2024 MCHC (RBC) [Mass/Vol] 35.6 g/dL 32-36 [facility] Mean platelet volume determi nationOrdered By: Hunter Ceja on 09-25-2024 Platelet mean volume (Bld) [Entitic vol] 8.6 fL 6.2-12.0 [facility] Mitochondria Ab Ql (S)Ordere d By: Hunter Ceja on 09-25-2024 Anti-Mitochondrial Antibody <20.0 Units 0.0-20.0 [facility] Comment on above: Negative 0.0 - 20.0 Equivocal 20.1 - 24.9 Positive >24.9Mitochondrial (M2) Antibodies are found in 90-96% ofpatients with primary biliary cirrhosis. Monocyte percentageOrdered B y: Hunterstew Ceja on 09-25-2024 Monocytes/100 WBC (Bld) 8.4 % 0-10 [facility] Mouse urine IgEOrdered By: eB Ceja on 09-25-2024 Mouse Urine Allergen IgE Antibody <0.10 kU/L Class 0 [facility] Comment on above: Performed at: [employer] [address] [id number] Director: Tim Adkins PhD, Phone: [phone] at: [employer] [facility] [id number] Director: Antonio Liu MD, Phone: [phone] Neutrophil cytoplasmic Ab.cl assic Qn (S)Ordered By: Hunter Ceja on 09-25-2024 Cytoplasmic ANCA (c-ANCA) Antibody <1:20 titer Neg:<1:20 [facility] Neutrophil cytoplasmic Ab.pe rinuclear IF (S) [Titer]Ordered By: Hunter Ceja on 09-25-2024 Perinuclear ANCA (p-ANCA) Antibody <1:20 titer Neg:<1:20 [facility] Comment on above: The presence of posi tive fluorescence exhibiting P-ANCA orC- ANCA patterns alone is not specific for the diagnosis ofWegener's Granulomatosis (WG) or microscopic polyangiitis.Decisions about treatment should not be based solely onANCA IFA results. The International ANCA Group Consensusrecommends follow up testing of positive sera with both MI-3 and MPO-ANCA enzyme immunoassays. As many as 5% serumsamples are positive only by EIA. Ref. AM J Clin Slbuol5913;111:507-513. Neutrophil percentageOrdered By: Hunter Ceja on 09-25-2024 Neutrophils/100 WBC (Bld) 59.2 % 47-70 [facility] No Panel InformationOrdered By: Hunter Ceja on 09-25-2024 Hepatitis C Antibody Comment Comment . [facility] Comment on above: Not infected with HC V unless early or acute infection issuspected (which may be delayed in an immunocompromisedindividual), or other evidence exists to indicate HCVinfection. Nucleated red blood cell per centageOrdered By: Hunter Ceja on 09-25-2024 Nucleated RBC/100 WBC (Bld) [Ratio] 0 % 0-5 [facility] Peanut IgE Qn (S)Ordered By: Hunter Ceja on 09-25-2024 Peanut Allergen (RAST) <0.10 kU/L Class 0 [facility] Phosphoruson 09-25-2024 Phosphate [Mass/Vol] 1.7 mg/dL Low 2.7-4.5 [facility] Comment on above: Performed By: #### L 3200.1100, L3100.3425, L100.9950, L3100.1850, L800.1280, L503.0106, L3000.0375, L501.2300, L503.6550, L501.6710, L3400.8000, L501.5200, L3300.1200, L5500.0300, L100.0100, L3410.9998, L3300.0960, L504.2610, L803.2200, L500.4050, L3100.6900, L3200.0500, L3410.2400, L501.9520, L503.6150, L5500.0550, L101.9900 ####[facility] [id number] [place], [place], [id number] Platelet countOrdered By: Ra case Ceja on 09-25-2024 Platelets (Bld) [#/Vol] 184 10*3/uL 150-450 [facility] Pork IgE Qn (S)Ordered By: Be Ceja on 09-25-2024 Pork Allergen (RAST) <0.10 kU/L Class 0 [facility] Potassium (Unsp spec) [Mass/ Vol]Ordered By: Hunter Ceja on 09-25-2024 Potassium [Moles/Vol] 3.9 mmol/L 3.3-5.1 [facility] Protein Fractions Immunofixa tion Pepe [Interp]Ordered By: Hunter Ceja on 09-25-2024 M-Darío (DENISE) Not Observed g/dL Not Observed [facility] Quantiferon-TB Gold Plus amanda tOrdered By: Hunter Ceja on 09-25-2024 TB Test (QFT) Comment . [facility] Comment on above: QuantiFERON-TB Gold Plus is a qualitative indirect test forM tuberculosis infection (including disease) and isintended for use in conjunction with risk assessment,radiography, and other medical and diagnostic evaluations.The QuantiFERON-TB Gold Plus result is determined bysubtracting the Nil value from either TB antigen (Ag)value. The Mitogen tube serves as a control for the test. TB Test (QFT) Antigen 2 0.06 IU/mL . [facility] TB Test (QFT) Mitogen > 10.00 IU/mL . [facility] TB Test (QFT) Nil 0.06 IU/mL . [facility] TB Test (QFT) Positive Criteria Negative Negative [facility] Comment on above: No response to M tub erculosis antigens detected.Infection with M tuberculosis is unlikely, but high riskindividuals should be considered for additional testing(ATS/IDSA/CDC Clinical Practice Guidelines, 2017). Thereference range is an Antigen minus Nil result of <0.35IU/mL.The specimen received for QuantiFERON testing was incubatedby the ordering institution. Specific procedures outlinedin our Directory of Services and in the package insert forthe QuantiFERON Gold (In Tube) test must be followed toenable for proper stimulation of cells for the productionof interferon gamma. Chemiluminescence immunoassaymethodology RBC Auto (Bld) [#/Vol]Ordere d By: Hunter Ceja on 09-25-2024 RBC (Bld) [#/Vol] 5.34 10*6/uL 4.6-6.2 [facility] Retic Panelon 09-25-2024 IM RET FRACTION 2.80 Low 3.00-15.90 [facility] Comment on above: Performed By: #### L 3200.1100, L3100.3425, L100.9950, L3100.1850, L800.1280, L503.0106, L3000.0375, L501.2300, L503.6550, L501.6710, L3400.8000, L501.5200, L3300.1200, L5500.0300, L100.0100, L3410.9998, L3300.0960, L504.2610, L803.2200, L500.4050, L3100.6900, L3200.0500, L3410.2400, L501.9520, L503.6150, L5500.0550, L101.9900 ####[facility] [address] [place], [place], [address] RET-HE 33.0 pg Normal 30-35 [facility] Comment on above: Performed By: #### L 3200.1100, L3100.3425, L100.9950, L3100.1850, L800.1280, L503.0106, L3000.0375, L501.2300, L503.6550, L501.6710, L3400.8000, L501.5200, L3300.1200, L5500.0300, L100.0100, L3410.9998, L3300.0960, L504.2610, L803.2200, L500.4050, L3100.6900, L3200.0500, L3410.2400, L501.9520, L503.6150, L5500.0550, L101.9900 ####[facility] [address] [place], [address] Retic Count 0.36 Low 0.5-1.5 [facility] Comment on above: Performed By: #### L 3200.1100, L3100.3425, L100.9950, L3100.1850, L800.1280, L503.0106, L3000.0375, L501.2300, L503.6550, L501.6710, L3400.8000, L501.5200, L3300.1200, L5500.0300, L100.0100, L3410.9998, L3300.0960, L504.2610, L803.2200, L500.4050, L3100.6900, L3200.0500, L3410.2400, L501.9520, L503.6150, L5500.0550, L101.9900 ####[facility] [address] [place], [address] Reticulocytes Auto (Bld) [#/ Vol]Ordered By: Hunter Ceja on 09-25-2024 Reticulocyte Count 0.36 % Low 0.5-1.5 [facility] [place] IgE Qn (S)Ordered By: Hunter Ceja on 09-25-2024 [place] Allergen IgE Antibody <0.10 kU/L Class 0 [facility] Serum Dermatophagoides farin ae specific IgE antibody assayOrdered By: Hunter Ceja on 09-25-2024 Dermatophagoides farinae Allergen 0.37 kU/L High Class I [facility] Serum Wallisian plantain speci fic IgE antibody assayOrdered By: Hunter Ceja on 09-25-2024 Wallisian Plantain Allergen (RAST) <0.10 kU/L Class 0 [facility] Serum albumin/globulin ratio Ordered By: Hunter Ceja on 09-25-2024 Albumin/Globulin (DENISE) 1.5 0.7-1.7 [facility] Serum common/short ragweed s pecific IgE antibody assayOrdered By: Hunter Ceja on 09-25-2024 Common Ragweed (Short) Allergen <0.10 kU/L Class 0 [facility] Serum creatinine measurement (mass/volume)Ordered By: Hunter Ceja on 09-25-2024 Creatinine [Mass/Vol] 0.97 mg/dL 0.70-1.20 [facility] Serum globulin measurementOr dered By: Hunter Ceja on 09-25-2024 Globulin (S) [Mass/Vol] 3.1 g/dL 2.2-4.2 [facility] Serum globulin measurement ( mass/volume)Ordered By: Hunter Ceja on 09-25-2024 Globulin (S) [Mass/Vol] 3.0 g/dL 2.2-3.9 [facility] Serum glucose measurement (m ass/volume)Ordered By: Hunter Ceja on 09-25-2024 Glucose [Mass/Vol] 86 mg/dL 70-99 [facility] Serum mussel specific IgE an tibody assayOrdered By: Hunter Ceja on 09-25-2024 Mussel Allergen IgE Antibody <0.10 kU/L Class 0 [facility] Serum or plasma alanine lewis otransferase (ALT) measurementOrdered By: Hunter Ceja on 09-25-2024 ALT [Catalytic activity/Vol] 35 U/L <47 [facility] Serum or plasma albumin bettina urement (mass/volume)Ordered By: Hunter Ceja on 09-25-2024 Albumin [Mass/Vol] 4.9 g/dL 3.5-5.0 [facility] Serum or plasma albumin/glob ulin mass ratioOrdered By: Hunter Ceja on 09-25-2024 Albumin/Globulin [Mass ratio] 1.6 {ratio} 0.9-2.4 [facility] Serum or plasma alkaline armand sphatase measurementOrdered By: Hunter Ceja on 09-25-2024 ALP [Catalytic activity/Vol] 63 U/L 40-129 [facility] Serum or plasma angiotensin converting enzyme measurement (enzymatic activity/volume)Ordered By: Hunter Ceja on 09-25-2024 Angiotensin converting enzyme [Catalytic activity/Vol] 72 U/L 14-82 [facility] Serum or plasma calcium bettina urement (mass/volume)Ordered By: Hunter Ceja on 09-25-2024 Calcium [Mass/Vol] 9.7 mg/dL 7.6-11.0 [facility] Serum or plasma ferritin dipak surement (mass/volume)Ordered By: Hunter Ceja on 09-25-2024 Ferritin [Mass/Vol] 273 ng/mL 37-417 [facility] Serum or plasma protein bettina urement (mass/volume)Ordered By: Hunter Ceja on 09-25-2024 Protein [Mass/Vol] 7.3 g/dL 6.0-8.5 [facility] Serum or plasma urea nitroge n measurement (mass/volume)Ordered By: Hunter Ceja on 09-25-2024 Urea nitrogen [Mass/Vol] 12 mg/dL 4-19 [facility] Serum phosphorus measurement Ordered By: Hunter Ceja on 09-25-2024 Phosphorus Level 1.7 mg/dL Low 2.7-4.5 [facility] Serum shrimp specific IgE an tibody assayOrdered By: Hunter Ceja on 09-25-2024 Shrimp Allergen <0.10 kU/L Class 0 [facility] Service comment (Unsp spec) [Interp]Ordered By: Hunter Ceja on 09-25-2024 RAST Comment Comment . [facility] Comment on above: Levels of Specific I gE Class Description of Class ----- < 0.10 0 Negative 0.10 - 0.31 0/I Equivocal/Low 0.32 - 0.55 I Low 0.56 - 1.40 II Moderate 1.41 - 3.90 III High 3.91 - 19.00 IV Very High 19.01 - 100.00 V Very High >100.00 Very High Sodium levelOrdered By: Anastacio Mendoza on 09-25-2024 Sodium [Moles/Vol] 138 mmol/L 133-145 [facility] Soybean IgE Qn (S)Ordered By : Hunter Ceja on 09-25-2024 Soybean Allergen (RAST) <0.10 kU/L Class 0 [facility] TSH DL <= 0.005 mIU/L QnOrde red By: Hunter Ceja on 09-25-2024 Thyroid Stimulating Hormone (TSH) 0.283 uIU/mL Low 0.300-4.200 [facility] Thyroid Stim Hormone (TSH)on 09-25-2024 TSH 0.283 uIU/mL Low 0.300-4.200 [facility] Comment on above: Performed By: #### L 3200.1100, L3100.3425, L100.9950, L3100.1850, L800.1280, L503.0106, L3000.0375, L501.2300, L503.6550, L501.6710, L3400.8000, L501.5200, L3300.1200, L5500.0300, L100.0100, L3410.9998, L3300.0960, L504.2610, L803.2200, L500.4050, L3100.6900, L3200.0500, L3410.2400, L501.9520, L503.6150, L5500.0550, L101.9900 ####[facility] [address] [place], [address] Total proteinOrdered By: Ian lala Friend on 09-25-2024 Protein [Mass/Vol] 8.0 g/dL 5.9-8.4 [facility] Tuna IgE Qn (S)Ordered By: Be garcia Friend on 09-25-2024 Tuna Allergen (RAST) <0.10 kU/L Class 0 [facility] Vitamin B12 ser/plasOrdered By: Hunter Ceja on 09-25-2024 Cobalamin (Vitamin B12) [Mass/Vol] 484 pg/mL 180-914 [facility] Wheat IgE Qn (S)Ordered By: Hunter Ceja on 09-25-2024 Wheat Allergen (RAST) <0.10 kU/L Class 0 [facility] [place] IgE Qn (S)Ordered By: Hunter Ceja on 09-25-2024 [place] Allergen <0.10 kU/L Class 0 [facility] [place] IgE Qn (S)Ordered By: Hunter Ceja on 09-25-2024 [place] Tree Allergen <0.10 kU/L Class 0 [facility] White blood cell (WBC) count Ordered By: Hunter Ceja on 09-25-2024 WBC (Bld) [#/Vol] 4.9 10*3/uL 4.4-11.0 [facility] Whole Egg IgE Qn (S)Ordered By: Hunter Ceja on 09-25-2024 Egg Whole Allergen <0.10 kU/L Class 0 [facility] tTG IgA Qn (S)Ordered By: Ra case Ceja on 03-31-2025 Tissue Transglutaminase IgA Ab <2 U/mL 0-3 [facility] Comment on above: Negative 0 - 3 Weak Positive 4 - 10 Positive >10 Tissue Transglutaminase (tTG) has been identified as the endomysial antigen. Studies have demonstr- ated that endomysial IgA antibodies have over 99% specificity for gluten sensitive enteropathy. Progress Noteon 08-31-2024 [facility] Authentication Interface Message Text Returning patient Mc Rice is a 24 y.o. male presenting today for Chief Complaint Patient presents with Follow Up History of Presenting Problem He is accompanied by his mother. Independent history obtained from mother. Mc was last seen on 05/17/24 for polyarticular SHAWNEE and IBD. At that visit, he has improved slightly after restarting rituximab. He received his two doses on 03/16/24 and 03/30/24. Since his last visit, Mc has been about the same to slightly better. He states that his joints are stable. He does have more left wrist pain with occasional swelling. He has been trying to do his home exercises a few times a week for his shoulder and elbow but not making much progress. He does have morning stiffness for 30-45 minutes. He states with the colder temperatures his joints ache more. He did received his first two doses of rituximab without trouble during the infusions. After the infusions he does get constipated which leads to a flare of his IBD. He states that he has to take stool softeners to help but it didn't work the second time which caused him IBD to flare. His last dose of Stelara was yesterday (08/22/24). He is currently at every 5 weeks. He has had two trough levels which were within the normal range. He does feel worse the week prior to his next dose (around week 4). He denies any fevers. He has limited range of motion of his left shoulder and bilateral wrists. He states that his TMJ has been okay. Denies any pain when biting into things or chewing. He does have significant cracking when opening his mouth which causes pain occasionally. He has been taking his medications as prescribed. He has been taking his relafen without trouble. He continues to have bouts of abdominal pain, nausea and changes in stool. He takes his weekly vitamin D on Mondays. He has received his COVID vaccines. Received flu vaccine for this season. Last labs 12/18/24. Last GI appointment was 08/23/24 via telehealth with recommended follow up in 3 months. Recommended next EGD + Colonoscopy in 2026. 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 He intially had bilateral ankles and wrists involvement. He did have bilateral ankle steroid injections which resolved the inflammation. He had left wrist steroid injection but he continued to have swelling. He was initially started on Naproxen and then Methotrexate was added. He was on both oral and SQ methotrexate. Enbrel was added because of continued joint swelling but it didn't control his swelling. He was then placed on Orencia IV and methotrexate and his joints improved. He did have left wrist surgery (4th grade) secondary to ganglion cyst. He has had decreased range of motion of his left wrist secondary to correction sequela of arthritis. He had surgery on his right wrist (5th grade) after he fractured it during a skateboarding accident. He has never had uveitis. He had stopped methotrexate and Orencia in 06/01/2016. He was restarted on SQ Orencia in July 2017. 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 He was also started on oral steroids which were weaned off in October 2017. He continued to havejoint pain and swelling so methotrexate SQ was started in August 2017. He had an MRI of his TMJs which showed bilateral effusions and bone edema consistent with arthritis in October 2017. Methotrexate was stopped in November 2017 after side effects (nausea, feeling sick). Orencia was stopped in December 2017 as he continued to have significant swelling and arthritis. He was switched to Tocilizumab in December 2017. Bilateral TMJ and 4th left PIP steroid injections on 02/04/2018. His arthritis worsened while on Tocilizumab so he was switched to Remicade IV and pulse steroids while admitted in February 2018. Remicade dose was increased in March and May 2018. He was switched from Remicade to Rituximab in June 2018. He was given another course of oral steroids in June 2018 for worsening arthritis. He was started on weekly IV pulse steroids in July 2018. His sulfasalazine was stopped in July and switched to azathioprine. He stopped azathioprine in August 2018. He was started on Rituximab in June 2018. He was diagnosed with IBD in March 2019. He was started on Humira in May 2019 after diagnosis with IBD. His arthritis was under control in December 2019. He continued to have active IBD so he was switched to Stelara in January 2020. His celebrex was increased in May 2020. He had active right elbow swelling in September 2020. He was started on sulfasalazine in November 2020. He was lost to follow up between November 2020 and October 2021. During that time his sulfasalazine was stopped. He had right elbow swelling at (more content not included)... 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 Assessment Mc is a 24 y.o. male with a PMH significant for SHAWNEE followed in Pediatric GI clinic for abdominal pain, diarrhea and IBD-indeterminant colitis. He has also struggled with appetite and weight loss in the past. The patient underwent EGD and colonoscopy in 03/2019 which showed chronic active colitis from the transverse colon to the rectum, as well as focally enhanced gastritis. An MRI at that time continued to show inflammation in the sigmoid and ileum. He was maintained on Humira, but was changed to Stelara in 01/2020 due to persistent symptoms despite adequate levels. The diarrhea, decreased appetite and abdominal pain have improved with this medication and the last level was adequate. He does have intermittent abdominal pain. He continues to take the Stelara every 5 weeks. More recently he has experienced increased joint pain/inflammation and was re-started on Rituximab. Worrisome signs and symptoms explained and the family expressed good understanding. 1. Indeterminate colitis 2. Therapeutic drug monitoring 3. IBD (inflammatory bowel disease) Plan Inflammatory Bowel Disease Stable on Stelara every 5 weeks and Apriso. No recent flare-ups. Patient experiences abdominal pain that worsens as the day progresses. Discussed increasing Apriso to three times a day. -Check Apriso dosing guidelines and adjust if possible. -Consider increasing Stelara to every 4 weeks if symptoms worsen. Gastroesophageal Reflux Disease Stable on daily Prilosec 20mg. -Continue Prilosec 20mg daily. Vitamin D Deficiency On weekly Vitamin D 50,000 units. -Continue Vitamin D 50,000 units weekly. Arthritis Worsening symptoms in left wrist, right elbow, and left shoulder. Patient is on rituximab, with the third infusion due in September. Previous experience with rituximab was positive, but it took up to six months to see improvement. -Continue rituximab as planned. General Health Maintenance -Continue monitoring weight. -Follow-up appointment in 6 months or sooner if needed. Subjective HPI Mc Rice is a 23 y.o. male with a PMH significant for SHAWNEE followed in the Pediatric GI Clinic for abdominal pain, diarrhea and IBD-indeterminant colitis. At the time of the initial visit the family reported that GI symptoms were present for 6 months. The patient was experiencing diffuse abdominal pain, vomiting and diarrhea. The patient lost 40 lbs. The patient was seen by [facility]. A colonoscopy was performed on 01/09/2019 - consistent with lymphocytic colitis. The patient was started on Budesonide 9 mg daily. The EGD and colonoscopy were repeated in 03/2019 and showed chronic active colitis from the transverse colon to the rectum, as well as focally enhanced gastritis. The patient was started on Humira. A repeat EGD and colonoscopy were performed in 10/2019 and showed chronic active colitis throughout the colon and focally enhanced gastritis. Humira was discontinued and the patient was started on Stelara on 01/29/2020. A Stelara level was sent in 09/2022 and was above 10 with no antibodies present. He currently receives Stelara 90 mg SQ q5 weeks. Mc Rice is a 24-year-old male with IBD who presents for a follow-up visit. He experiences regular bowel movements once every morning without blood or mucus. Abdominal pain worsens throughout the day, particularly after eating, but resolves after his morning bowel movement. Occasional vomiting occurs during flare-ups, especially when taking steroids, which he does not tolerate well due to dehydration effects. He is currently taking Apriso and is interested in adjusting the dosage to manage his symptoms better. He is on Stelara every five weeks and reports no issues with obtaining the medication. He has also started rituximab infusions, with the last one administered four months ago. He experienced dehydration and constipation following the infusion, which he attributes to the steroids or medication. He continues to take Prilosec 20 mg daily and has been started on vitamin D 50,000 units weekly. Regarding his joint issues, his left wrist, right elbow, and left shoulder are currently bothersome. He had joint injections in his left wrist and righ (more content not included)... Normal [facility] 25(OH)D3 [facility] 2024 25-hydroxyvitamin D3 [Mass/Vol] 32.2 ng/mL Normal >=30.0 [facility] Comment on above: Order Comment: Cat anderson Type: BLOOD SPECIMEN Ordering Facility: [facility] Address: [address] [place] [address] Result Comment: Clas sification of 25 [place] Vitamin D status: Deficiency: <= 20.0 ng/ml. Insufficiency: 21.0-29.0 ng/ml. Sufficiency: >= 30.0 ng/ml. Performed By: #### 5 195-3 #### [facility] CLIA [id number] [address] [place] [address] [place] [facility] CBC W Auto Differential pane l (Bld)on 07-31-2024 Basophils (Bld) [#/Vol] 0.05 10*3/uL Normal <0.11 [facility] Comment on above: Order Comment: Cat anderson Type: BLOOD SPECIMEN Ordering Facility: [facility] Address: [address] [place] [address] Performed By: #### 5 7021-8 #### [facility] CLIA [id number] [address] [place] [address] [place] [facility] Basophils/100 WBC (Bld) 0.7 % Normal [facility] Comment on above: Order Comment: Cat anderson Type: BLOOD SPECIMEN Ordering Facility: [facility] Address: [address] [place] [address] Performed By: #### 5 7021-8 #### [facility] CLIA [id number] [address] [place] [address] [place] Differential cell count method Nom (Bld) Auto Normal [facility] Comment on above: Order Comment: Speci men Type: BLOOD SPECIMEN Ordering Facility: [facility] Address: [address] [place] [address] Performed By: #### 5 7021-8 #### [facility] CLIA [id number] [address] [place] [address] [place] Eosinophils (Bld) [#/Vol] 0.26 10*3/uL Normal <0.46 [facility] Comment on above: Order Comment: Speci men Type: BLOOD SPECIMEN Ordering Facility: [facility] Address: [address] [place] [address] Performed By: #### 5 7021-8 #### [facility] CLIA [id number] [address] [place] [address] [place] Eosinophils/100 WBC (Bld) 3.9 % Normal [facility] Comment on above: Order Comment: Speci men Type: BLOOD SPECIMEN Ordering Facility: [facility] Address: [address] [place] [address] Performed By: #### 5 7021-8 #### [facility] CLIA [id number] [address] [place] [address] [place] Erythrocyte distribution width (RBC) [Ratio] 12.3 % Normal 11.5-15.0 [facility] Comment on above: Order Comment: Speci men Type: BLOOD SPECIMEN Ordering Facility: [facility] Address: [address] [place] [address] Performed By: #### 5 7021-8 #### [facility] CLIA [id number] [address] [place] [address] [place] Hematocrit (Bld) [Volume fraction] 47.1 % Normal 39.0-51.0 [facility] Comment on above: Order Comment: Speci men Type: BLOOD SPECIMEN Ordering Facility: [facility] Address: [address] [place] [address] Performed By: #### 5 7021-8 #### [facility] CLIA [id number] [address] [place] [address] [place] Hemoglobin (Bld) [Mass/Vol] 15.4 g/dL Normal 13.0-17.0 [facility] Comment on above: Order Comment: Speci men Type: BLOOD SPECIMEN Ordering Facility: [facility] Address: [address] [place] [address] Performed By: #### 5 7021-8 #### [facility] CLIA [id number] [address] [place] [address] [place] Immature granulocytes (Bld) [#/Vol] 10*3/uL Normal <0.10 [facility] Comment on above: Order Comment: Speci men Type: BLOOD SPECIMEN Ordering Facility: [facility] Address: [address] [place] [address] Performed By: #### 5 7021-8 #### [facility] CLIA [id number] [address] [place] [address] [place] Immature granulocytes/100 WBC (Bld) 0.0 % Normal [facility] Comment on above: Order Comment: Speci men Type: BLOOD SPECIMEN Ordering Facility: [facility] Address: [address] [place] [address] Performed By: #### 5 7021-8 #### [facility] CLIA [id number] [address] [place] [address] [place] Lymphocytes (Bld) [#/Vol] 1.90 10*3/uL Normal 1.00-4.00 [facility] Comment on above: Order Comment: Speci men Type: BLOOD SPECIMEN Ordering Facility: [facility] Address: [address] [place] [address] Performed By: #### 5 7021-8 #### [facility] CLIA [id number] [address] [place] [address] [place] Lymphocytes/100 WBC (Bld) 28.4 % Normal [facility] Comment on above: Order Comment: Speci men Type: BLOOD SPECIMEN Ordering Facility: [facility] Address: [address] [place] [address] Performed By: #### 5 7021-8 #### [facility] CLIA [id number] [address] [place], [place] [id number] [place] [address] [place] MCH (RBC) [Entitic mass] 29.8 pg Normal 26.0-34.0 [facility] Comment on above: Order Comment: Speci men Type: BLOOD SPECIMEN Ordering Facility: [facility] Address: [address] [place] [address] Performed By: #### 5 7021-8 #### [facility] CLIA [id number] [address] [place] [id number] [place] [address] [place] MCHC (RBC) [Mass/Vol] 32.7 g/dL Normal 30.5-36.0 [facility] [facility] Comment on above: Order Comment: Speci men Type: BLOOD SPECIMEN Ordering Facility: [facility] Address: [address] [place] [address] Performed By: #### 5 7021-8 #### [facility] CLIA [id number] [address] [place] [id number] [place] [address] [place] MCV (RBC) [Entitic vol] 91.3 fL Normal 80.0-100.0 [facility] Comment on above: Order Comment: Speci men Type: BLOOD SPECIMEN Ordering Facility: [facility] Address: [address] [place] [address] Performed By: #### 5 7021-8 #### [facility] CLIA [id number] [address] [place] [address] [facility] Monocytes (Bld) [#/Vol] 0.63 10*3/uL Normal <0.87 [facility] Comment on above: Order Comment: Speci men Type: BLOOD SPECIMEN Ordering Facility: [facility] Address: [address] [place] [address] Performed By: #### 5 7021-8 #### [facility] CLIA [id number] [address] [place] [address] [place] Monocytes/100 WBC (Bld) 9.4 % Normal [facility] Comment on above: Order Comment: Speci men Type: BLOOD SPECIMEN Ordering Facility: [facility] Address: [address] [place] [address] Performed By: #### 5 7021-8 #### [facility] CLIA [id number] [address] [place] [address] [place] Neutrophils (Bld) [#/Vol] 3.86 10*3/uL Normal 1.45-7.50 [facility] Comment on above: Order Comment: Speci men Type: BLOOD SPECIMEN Ordering Facility: [facility] Address: [address] [place] [address] Performed By: #### 5 7021-8 #### [facility] CLIA [id number] [address] [place] [address] [place] Neutrophils/100 WBC (Bld) 57.6 % Normal [facility] Comment on above: Order Comment: Speci men Type: BLOOD SPECIMEN Ordering Facility: [facility] Address: [address] [place] [address] Performed By: #### 5 7021-8 #### [facility] CLIA [id number] [address] [place] [address] [place] Nucleated RBC (Bld) [#/Vol] Normal [facility] Comment on above: Order Comment: Speci men Type: BLOOD SPECIMEN Ordering Facility: [facility] Address: [address] [place] [address] Performed By: #### 5 7021-8 #### [facility] CLIA [id number] [address] [place] [address] [place] Nucleated RBC/100 WBC (Bld) [Ratio] Normal [facility] Comment on above: Order Comment: Speci men Type: BLOOD SPECIMEN Ordering Facility: [facility] Address: [address] [place] [address] Performed By: #### 5 7021-8 #### [facility] CLIA [id number] [address] [place] [address] [place] Platelet mean volume (Bld) [Entitic vol] 9.2 fL Normal 9.0-12.7 [facility] Comment on above: Order Comment: Speci men Type: BLOOD SPECIMEN Ordering Facility: [facility] Address: [address] [place] [address] Performed By: #### 5 7021-8 #### [facility] CLIA [id number] [address] [place] [address] [place] Platelets (Bld) [#/Vol] 231 10*3/uL Normal 150-400 [facility] Comment on above: Order Comment: Speci men Type: BLOOD SPECIMEN Ordering Facility: [facility] Address: [address] [place] [address] Performed By: #### 5 7021-8 #### [facility] CLIA [id number] [address] [place] [address] [place] RBC (Bld) [#/Vol] 5.16 10*6/uL Normal 4.20-6.00 [facility] Comment on above: Order Comment: Speci men Type: BLOOD SPECIMEN Ordering Facility: [facility] Address: [address] [place] [address] Performed By: #### 5 7021-8 #### [facility] CLIA [id number] [address] [place] [address] [place] WBC (Bld) [#/Vol] 6.70 10*3/uL Normal 3.70-11.00 [facility] Comment on above: Order Comment: Speci men Type: BLOOD SPECIMEN Ordering Facility: [facility] Address: [address] [place] [address] Performed By: #### 5 7021-8 #### [facility] CLIA [id number] [address] [place] [address] [place] Comprehensive metabolic 2000 panelon 07-31-2024 Albumin [Mass/Vol] 4.5 g/dL Normal 3.9-4.9 [facility] Comment on above: Order Comment: Speci men Type: BLOOD SPECIMEN Ordering Facility: [facility] Address: [address] [place] [address] Performed By: #### U STEKQ #### [facility] CLIA [id number] [address] [place] [address] ALP [Catalytic activity/Vol] 68 U/L Normal 38-113 [facility] Comment on above: Order Comment: Speci men Type: BLOOD SPECIMEN Ordering Facility: [facility] Address: [address] [place] [address] Performed By: #### U STEKQ #### [facility] CLIA [id number] [address] [place] [address] ALT With P-5'-P [Catalytic activity/Vol] 16 U/L Normal 10-54 [facility] Comment on above: Order Comment: Speci men Type: BLOOD SPECIMEN Ordering Facility: [facility] Address: [address] [place] [address] Performed By: #### U STEKQ #### [facility] CLIA [id number] [address] [place] [address] Anion gap [Moles/Vol] 8 mmol/L Normal 8-15 [facility] Comment on above: Order Comment: Speci men Type: BLOOD SPECIMEN Ordering Facility: [facility] Address: [address] [place] [address] Performed By: #### U STEKQ #### [facility] CLIA [id number] [address] [place] [address] AST With P-5'-P [Catalytic activity/Vol] 23 U/L Normal 14-40 [facility] Comment on above: Order Comment: Speci men Type: BLOOD SPECIMEN Ordering Facility: [facility] Address: [address] [place] [address] Performed By: #### U STEKQ #### [facility] CLIA [id number] [address] [place] [address] Bilirubin [Mass/Vol] 0.4 mg/dL Normal 0.2-1.3 [facility] Comment on above: Order Comment: Speci men Type: BLOOD SPECIMEN Ordering Facility: [facility] Address: [address] [place] [address] Performed By: #### U STEKQ #### [facility] CLIA [id number] [address] [place] [address] Calcium [Mass/Vol] 9.7 mg/dL Normal 8.5-10.2 [facility] Comment on above: Order Comment: Speci men Type: BLOOD SPECIMEN Ordering Facility: [facility] Address: [address] [place] [address] Performed By: #### U STEKQ #### [facility] CLIA [id number] [address] [place] [address] Chloride [Moles/Vol] 105 mmol/L Normal 98-107 [facility] Comment on above: Order Comment: Speci men Type: BLOOD SPECIMEN Ordering Facility: [facility] Address: [address] [place] [address] Performed By: #### U STEKQ #### [facility] CLIA [id number] [address] [place] [address] CO2 [Moles/Vol] 26 mmol/L Normal 22-30 [facility] Comment on above: Order Comment: Speci men Type: BLOOD SPECIMEN Ordering Facility: [facility] Address: [address] [place] [address] Performed By: #### U STEKQ #### [facility] CLIA [id number] [address] [place] [address] Creatinine [Mass/Vol] 1.03 mg/dL Normal 0.73-1.22 [facility] Comment on above: Order Comment: Speci men Type: BLOOD SPECIMEN Ordering Facility: [facility] Address: [address] [place] [address] Performed By: #### U STEKQ #### [facility] CLIA [id number] [address] [place] [address] Creatinine and Glomerular filtration rate.predicted panel (S/P/Bld) 105 mL/min/1.73m??? Normal >=60 [facility] Comment on above: Order Comment: Cat anderson Type: BLOOD SPECIMEN Ordering Facility: [facility] Address: [address] [place] [address] Result Comment: Pamela mated Glomerular Filtration Rate (eGFR) is calculated using the 2020 CKD-EPI creatinine equation. This equation utilizes serum creatinine, sex, and age as parameters. The creatinine assay has traceable calibration to isotope dilution-mass spectrometry. Refer to KDIGO guidelines for clinical interpretation. In patients with unstable renal function, e.g. those with acute kidney injury, the eGFR may not accurately reflect actual GFR. Performed By: #### U STEKQ #### [facility] CLIA [id number] [address] [place] [address] Glucose [Mass/Vol] 93 mg/dL Normal 74-99 [facility] Comment on above: Order Comment: Cat anderson Type: BLOOD SPECIMEN Ordering Facility: [facility] Address: [address] [place] [address] Result Comment: The [place] Diabetes [employer] (ADA) provides guidance for cutoff values for fasting glucose and random glucose. The ADA defines fasting as no caloric intake for at least 8 hours. Fasting plasma glucose results between 100 to 125 mg/dL indicate increased risk for diabetes (prediabetes). Fasting plasma glucose results greater than or equal to 126 mg/dL meet the criteria for diagnosis of diabetes. In the absence of unequivocal hyperglycemia, results should be confirmed by repeat testing. In a patient with classic symptoms of hyperglycemia or hyperglycemic crisis, random plasma glucose results greater than or equal to 200 mg/dL meet the criteria for diagnosis of diabetes. Reference: Standards of Medical Care in Diabetes 2016, [place] [employer]. Diabetes Care. 2016.39(Suppl 1). Performed By: #### U STEKQ #### [facility] CLIA [id number] [address] [place] [address] Potassium [Moles/Vol] 4.8 mmol/L Normal 3.7-5.1 [facility] Comment on above: Order Comment: Cat anderson Type: BLOOD SPECIMEN Ordering Facility: [facility] Address: [address], [place] [address] Performed By: #### U STEKQ #### [facility] CLIA [id number] [address] [place] [address] Protein [Mass/Vol] 7.4 g/dL Normal 6.3-8.0 [facility] Comment on above: Order Comment: Speci men Type: BLOOD SPECIMEN Ordering Facility: [facility] Address: [address] [place] [address] Performed By: #### U STEKQ #### [facility] CLIA [id number] [address] [place] [address] Sodium [Moles/Vol] 139 mmol/L Normal 136-144 [facility] Comment on above: Order Comment: Speci men Type: BLOOD SPECIMEN Ordering Facility: [facility] Address: [address] [place] [address] Performed By: #### U STEKQ #### [facility] CLIA [id number] [address] [place] [address] Urea nitrogen [Mass/Vol] 14 mg/dL Normal 9-24 [facility] Comment on above: Order Comment: Speci men Type: BLOOD SPECIMEN Ordering Facility: [facility] Address: [address] [place] [address] Performed By: #### U STEKQ #### [facility] CLIA [id number] [address] [place] [address] ESR Westergren method (Bld) [Velocity]on 07-31-2024 ESR (Bld) [Velocity] 2 mm/h Normal 0-15 [facility] Comment on above: Order Comment: Speci men Type: BLOOD SPECIMEN Ordering Facility: [facility] Address: [address] [place] [address] Performed By: #### 5 195-3 #### [facility] CLIA [id number] [address] [place] [address] [place] 25([place])D3 [facility] 25-hydroxyvitamin D3 [Mass/Vol] 29.1 ng/mL Low >=30.0 [facility] Comment on above: Order Comment: Speci men Type: BLOOD SPECIMEN Ordering Facility: [facility] Address: [address] [place] [address] Result Comment: Clas sification of 25 [place] Vitamin D status: Deficiency: <= 20.0 ng/ml. Insufficiency: 21.0-29.0 ng/ml. Sufficiency: >= 30.0 ng/ml. Performed By: #### 1 989-3 #### [facility] CLIA [id number] [address] [facility] CBC W Auto Differential pane l (Bld)on 06-14-2024 Basophils (Bld) [#/Vol] 0.06 10*3/uL Normal <0.11 [facility] Comment on above: Order Comment: Speci men Type: BLOOD SPECIMEN Ordering Facility: [facility] Address: [address] [place] [address] Performed By: #### 5 195-3 #### [facility] CLIA [id number] [address] [place] [address] [place] Basophils/100 WBC (Bld) 1.0 % Normal [facility] Comment on above: Order Comment: Speci men Type: BLOOD SPECIMEN Ordering Facility: [facility] Address: [address] [place] [address] Performed By: #### 5 195-3 #### [facility] CLIA [id number] [address] Differential cell count method Nom (Bld) Auto Normal [facility] Comment on above: Order Comment: Speci men Type: BLOOD SPECIMEN Ordering Facility: [facility] Address: [address] [place] [address] Performed By: #### 5 195-3 #### [facility] CLIA [id number] [address] [place] [address] [place] Eosinophils (Bld) [#/Vol] 0.29 10*3/uL Normal <0.46 [facility] Comment on above: Order Comment: Speci men Type: BLOOD SPECIMEN Ordering Facility: [facility] Address: [address] [place] [address] Performed By: #### 5 195-3 #### [facility] CLIA [id number] [address] Eosinophils/100 WBC (Bld) 4.8 % Normal [facility] Comment on above: Order Comment: Speci men Type: BLOOD SPECIMEN Ordering Facility: [facility] Address: [address] [place] [address] Performed By: #### 5 195-3 #### [facility] CLIA [id number] [address] Erythrocyte distribution width (RBC) [Ratio] 12.0 % Normal 11.5-15.0 [facility] Comment on above: Order Comment: Speci men Type: BLOOD SPECIMEN Ordering Facility: [facility] Address: [address] [place] [address] Performed By: #### 5 195-3 #### [facility] CLIA [id number] [address] Hematocrit (Bld) [Volume fraction] 47.9 % Normal 39.0-51.0 [facility] Comment on above: Order Comment: Speci men Type: BLOOD SPECIMEN Ordering Facility: [facility] Address: [address] [place] [address] Performed By: #### 5 195-3 #### [facility] CLIA [id number] [address] Hemoglobin (Bld) [Mass/Vol] 15.5 g/dL Normal 13.0-17.0 [facility] Comment on above: Order Comment: Speci men Type: BLOOD SPECIMEN Ordering Facility: [facility] Address: [address] [place] [address] Performed By: #### 5 195-3 #### [facility] CLIA [id number] [address] Immature granulocytes (Bld) [#/Vol] 10*3/uL Normal <0.10 [facility] Comment on above: Order Comment: Speci men Type: BLOOD SPECIMEN Ordering Facility: [facility] Address: [address] [place] [address] Performed By: #### 5 195-3 #### [facility] CLIA [id number] [address] Immature granulocytes/100 WBC (Bld) 0.2 % Normal [facility] Comment on above: Order Comment: Speci men Type: BLOOD SPECIMEN Ordering Facility: [facility] Address: [address] [place] [address] Performed By: #### 5 195-3 #### [facility] CLIA [id number] [address] [facility] Lymphocytes (Bld) [#/Vol] 1.62 10*3/uL Normal 1.00-4.00 [facility] Comment on above: Order Comment: Speci men Type: BLOOD SPECIMEN Ordering Facility: [facility] Address: [address] [place] [address] Performed By: #### 5 195-3 #### [facility] CLIA [id number] [address] Lymphocytes/100 WBC (Bld) 26.6 % Normal [facility] Comment on above: Order Comment: Speci men Type: BLOOD SPECIMEN Ordering Facility: [facility] Address: [address] [place] [address] Performed By: #### 5 195-3 #### [facility] CLIA [id number] [address] MCH (RBC) [Entitic mass] 29.5 pg Normal 26.0-34.0 [facility] Comment on above: Order Comment: Speci men Type: BLOOD SPECIMEN Ordering Facility: [facility] Address: [address] [place] [address] Performed By: #### 5 195-3 #### [facility] CLIA [id number] [address] MCHC (RBC) [Mass/Vol] 32.4 g/dL Normal 30.5-36.0 [facility] Comment on above: Order Comment: Speci men Type: BLOOD SPECIMEN Ordering Facility: [facility] Address: [address] [place] [address] Performed By: #### 5 195-3 #### [facility] CLIA [id number] [address] [place] MCV (RBC) [Entitic vol] 91.1 fL Normal 80.0-100.0 [facility] Comment on above: Order Comment: Speci men Type: BLOOD SPECIMEN Ordering Facility: [facility] Address: [address] [place] [address] Performed By: #### 5 195-3 #### [facility] CLIA [id number] [address] [place] Monocytes (Bld) [#/Vol] 0.62 10*3/uL Normal <0.87 [facility] Comment on above: Order Comment: Speci men Type: BLOOD SPECIMEN Ordering Facility: [facility] Address: [address] [place] [address] Performed By: #### 5 195-3 #### [facility] CLIA [id number] [address] Monocytes/100 WBC (Bld) 10.2 % Normal [facility] Comment on above: Order Comment: Speci men Type: BLOOD SPECIMEN Ordering Facility: [facility] Address: [address] [place] [address] Performed By: #### 5 195-3 #### [facility] CLIA [id number] [address] [place] Neutrophils (Bld) [#/Vol] 3.48 10*3/uL Normal 1.45-7.50 [facility] Comment on above: Order Comment: Speci men Type: BLOOD SPECIMEN Ordering Facility: [facility] Address: [address] [place] [address] Performed By: #### 5 195-3 #### [facility] CLIA [id number] [address] [place] Neutrophils/100 WBC (Bld) 57.2 % Normal [facility] Comment on above: Order Comment: Speci men Type: BLOOD SPECIMEN Ordering Facility: [facility] Address: [address] [place] [address] Performed By: #### 5 195-3 #### [facility] CLIA [id number] [address] [place] Nucleated RBC (Bld) [#/Vol] Normal [facility] Comment on above: Order Comment: Speci men Type: BLOOD SPECIMEN Ordering Facility: [facility] Address: [address] [place] [address] Performed By: #### 5 195-3 #### [facility] CLIA [id number] [address] [place] Nucleated RBC/100 WBC (Bld) [Ratio] Normal [facility] Comment on above: Order Comment: Speci men Type: BLOOD SPECIMEN Ordering Facility: [facility] Address: [address] [place] [address] Performed By: #### 5 195-3 #### [facility] CLIA [id number] [address] [place] [address] [place] Platelet mean volume (Bld) [Entitic vol] 9.1 fL Normal 9.0-12.7 [facility] Comment on above: Order Comment: Speci men Type: BLOOD SPECIMEN Ordering Facility: [facility] Address: [address] [place] [address] Performed By: #### 5 195-3 #### [facility] CLIA [id number] [address] [place] [address] [place] Platelets (Bld) [#/Vol] 239 10*3/uL Normal 150-400 [facility] Comment on above: Order Comment: Speci men Type: BLOOD SPECIMEN Ordering Facility: [facility] Address: [facility] [place] [address] Performed By: #### 5 195-3 #### [facility] CLIA [id number] [address] [place] [address] [place] RBC (Bld) [#/Vol] 5.26 10*6/uL Normal 4.20-6.00 [facility] Comment on above: Order Comment: Speci men Type: BLOOD SPECIMEN Ordering Facility: [facility] Address: [address] [place] [address] Performed By: #### 5 195-3 #### [facility] CLIA [id number] [address] WBC (Bld) [#/Vol] 6.08 10*3/uL Normal 3.70-11.00 [facility] Comment on above: Order Comment: Speci men Type: BLOOD SPECIMEN Ordering Facility: [facility] Address: [address] [place] [address] Performed By: #### 5 195-3 #### [facility] CLIA [id number] [address] Comprehensive metabolic 2000 panelon 06-14-2024 Albumin [Mass/Vol] 4.6 g/dL Normal 3.9-4.9 [facility] Comment on above: Order Comment: Speci men Type: BLOOD SPECIMEN Ordering Facility: [facility] Address: [address] [place] [address] Performed By: #### 5 195-3 #### [facility] CLIA [id number] [address] ALP [Catalytic activity/Vol] 63 U/L Normal 38-113 [facility] Comment on above: Order Comment: Speci men Type: BLOOD SPECIMEN Ordering Facility: [facility] Address: [address] [place] [address] Performed By: #### 5 195-3 #### [facility] CLIA [id number] [address] ALT With P-5'-P [Catalytic activity/Vol] 15 U/L Normal 10-54 [facility] Comment on above: Order Comment: Speci men Type: BLOOD SPECIMEN Ordering Facility: [facility] Address: [address] [place] [address] Performed By: #### 5 195-3 #### [facility] CLIA [id number] [address] Anion gap [Moles/Vol] 8 mmol/L Normal 8-15 [facility] Comment on above: Order Comment: Speci men Type: BLOOD SPECIMEN Ordering Facility: [facility] Address: [address] [place] [address] Performed By: #### 5 195-3 #### [facility] CLIA [id number] [address] [place] AST With P-5'-P [Catalytic activity/Vol] 19 U/L Normal 14-40 [facility] Comment on above: Order Comment: Speci men Type: BLOOD SPECIMEN Ordering Facility: [facility] Address: [address] [place] [address] Performed By: #### 5 195-3 #### [facility] CLIA [id number] [address] [facility] Bilirubin [Mass/Vol] 0.6 mg/dL Normal 0.2-1.3 [facility] Comment on above: Order Comment: Speci men Type: BLOOD SPECIMEN Ordering Facility: [facility] Address: [address] [place] [address] Performed By: #### 5 195-3 #### [facility] CLIA [id number] [address] [facility] Calcium [Mass/Vol] 10.0 mg/dL Normal 8.5-10.2 [facility] Comment on above: Order Comment: Speci men Type: BLOOD SPECIMEN Ordering Facility: [facility] Address: [address] [place] [address] Performed By: #### 5 195-3 #### [facility] CLIA [id number] [address] [place] Chloride [Moles/Vol] 102 mmol/L Normal 98-107 [facility] Comment on above: Order Comment: Speci men Type: BLOOD SPECIMEN Ordering Facility: [facility] Address: [address] [place] [address] Performed By: #### 5 195-3 #### [facility] CLIA [id number] [address] CO2 [Moles/Vol] 27 mmol/L Normal 22-30 [facility] Comment on above: Order Comment: Speci men Type: BLOOD SPECIMEN Ordering Facility: [facility] Address: [address] [place] [address] Performed By: #### 5 195-3 #### [facility] CLIA [id number] [address] [place] Creatinine [Mass/Vol] 0.98 mg/dL Normal 0.73-1.22 [facility] Comment on above: Order Comment: Speci men Type: BLOOD SPECIMEN Ordering Facility: [facility] Address: [address] [place] [address] Performed By: #### 5 195-3 #### [facility] CLIA [id number] [address] Creatinine and Glomerular filtration rate.predicted panel (S/P/Bld) 111 mL/min/1.73m??? Normal >=60 [facility] Comment on above: Order Comment: Speci men Type: BLOOD SPECIMEN Ordering Facility: [facility] Address: [address] [place] [address] Result Comment: Pamela mated Glomerular Filtration Rate (eGFR) is calculated using the 2020 CKD-EPI creatinine equation. This equation utilizes serum creatinine, sex, and age as parameters. The creatinine assay has traceable calibration to isotope dilution-mass spectrometry. Refer to KDIGO guidelines for clinical interpretation. In patients with unstable renal function, e.g. those with acute kidney injury, the eGFR may not accurately reflect actual GFR. Performed By: #### 5 195-3 #### [facility] CLIA [id number] [address] [facility] Glucose [Mass/Vol] 87 mg/dL Normal 74-99 [facility] Comment on above: Order Comment: Speci men Type: BLOOD SPECIMEN Ordering Facility: [facility] Address: [address] [place] [address] Result Comment: The [place] Diabetes Association (ADA) provides guidance for cutoff values for fasting glucose and random glucose. The ADA defines fasting as no caloric intake for at least 8 hours. Fasting plasma glucose results between 100 to 125 mg/dL indicate increased risk for diabetes (prediabetes). Fasting plasma glucose results greater than or equal to 126 mg/dL meet the criteria for diagnosis of diabetes. In the absence of unequivocal hyperglycemia, results should be confirmed by repeat testing. In a patient with classic symptoms of hyperglycemia or hyperglycemic crisis, random plasma glucose results greater than or equal to 200 mg/dL meet the criteria for diagnosis of diabetes. Reference: Standards of Medical Care in Diabetes 2016, [place] Diabetes Association. Diabetes Care. 2016.39(Suppl 1). Performed By: #### 5 195-3 #### [facility] CLIA [id number] [address] [place] Potassium [Moles/Vol] 4.6 mmol/L Normal 3.7-5.1 [facility] Comment on above: Order Comment: Speci men Type: BLOOD SPECIMEN Ordering Facility: [facility] Address: [address] [place] [address] Performed By: #### 5 195-3 #### [facility] CLIA [id number] 1 [place] [address] [place] Protein [Mass/Vol] 7.3 g/dL Normal 6.3-8.0 [facility] Comment on above: Order Comment: Speci men Type: BLOOD SPECIMEN Ordering Facility: [facility] Address: [address] [place] [address] Performed By: #### 5 195-3 #### [facility] CLIA [id number] 1 [place] [address] [place] Sodium [Moles/Vol] 137 mmol/L Normal 136-144 [facility] Comment on above: Order Comment: Speci men Type: BLOOD SPECIMEN Ordering Facility: [facility] Address: [address] [place] [address] Performed By: #### 5 195-3 #### [facility] CLIA [id number] 1 [place] [address] [place] Urea nitrogen [Mass/Vol] 12 mg/dL Normal 9-24 [facility] Comment on above: Order Comment: Speci men Type: BLOOD SPECIMEN Ordering Facility: [facility] Address: [address] [place] [address] Performed By: #### 5 195-3 #### [facility] CLIA [id number] 1 [place] [id number] [place] ESR Westergren method (Bld) [Velocity]on 06-14-2024 ESR (Bld) [Velocity] 2 mm/h Normal 0-15 [facility] Comment on above: Order Comment: Speci men Type: BLOOD SPECIMEN Ordering Facility: [facility] Address: [address] [place] [address] Performed By: #### 4 537-7 #### [facility] CLIA [id number] [address] [facility] [place] [place] [address] [place] Progress Noteon 05-17-2024 [facility] Inpatient Services Authentication Interface Message Text Returning patient Mc Rice is a 23 y.o. male presenting today for Chief Complaint Patient presents with Follow Up History of Presenting Problem He is accompanied by his mother. Independent history obtained from mother. 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 At that visit, he was having active arthritis despite being on xeljanz therefore it was discussed switching to rituximab as his arthritis has done the best on rituximab previously. He received his two doses on 03/16/24 and 03/30/24. Since his last visit, Mc has been about the same to slightly better. His elbow has been about the same since his last joint injection. His left shoulder and left wrist have been bothering him the most. He hasn't been doing him shoulder exercises. He states that his wrist is slightly better than before. He hasn't noticed any joint swelling but does have morning stiffness. He states with the colder temperatures his joints ache more. He had about 45 minutes of morning stiffness this morning. He did received his first two doses of rituximab without trouble during the infusions. After the infusions he does get constipated which leads to a flare of his IBD. He states that he has to take stool softeners to help but it didn't work the second time which caused him IBD to flare. He did lose about 8 pounds because of his abdominal pain and nausea. He states that it is starting to improve now. His last dose of Stelara was yesterday (05/16/24). He is currently at every 5 weeks. He has had two trough levels which were within the normal range. He does feel worse the week prior to his next dose (around week 4). He denies any fevers but has had a cough since his flu vaccine about 6 weeks ago. His cough is improving. He has limited range of motion of his left shoulder and bilateral wrists. He states that his TMJ has been okay. Denies any pain when biting into things or chewing. He does have significant cracking when opening his mouth which causes pain occasionally. He has been taking his medications as prescribed. He has been taking his relafen without trouble. He continues to have bouts of abdominal pain, nausea and changes in stool. He takes his weekly vitamin D on Mondays. He did have mouth sores during his GI flare/after his rituximab. He has received his COVID vaccines. Received flu vaccine for this season. Last labs 03/30/24. Last GI appointment was 11/30/23 via telehealth with recommended follow up in 3 months. Recommended next EGD + Colonoscopy in 2026. 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 He intially had bilateral ankles and wrists involvement. He did have bilateral ankle steroid injections which resolved the inflammation. He had left wrist steroid injection but he continued to have swelling. He was initially started on Naproxen and then Methotrexate was added. He was on both oral and SQ methotrexate. Enbrel was added because of continued joint swelling but it didn't control his swelling. He was then placed on Orencia IV and methotrexate and his joints improved. He did have left wrist surgery (4th grade) secondary to ganglion cyst. He has had decreased range of motion of his left wrist secondary to correction sequela of arthritis. He had surgery on his right wrist (5th grade) after he fractured it during a skateboarding accident. He has never had uveitis. He had stopped methotrexate and Orencia in 06/01/2016. He was restarted on SQ Orencia in July 2017. 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 He was also started on oral steroids which were weaned off in October 2017. He continued to havejoint pain and swelling so methotrexate SQ was started in August 2017. He had an MRI of his TMJs which showed bilateral effusions and bone edema consistent with arthritis in October 2017. Methotrexate was stopped in November 2017 after side effects (nausea, feeling sick). Orencia was stopped in December 2017 as he continued to have significant swelling and arthritis. He was switched to Tocilizumab in December 2017. Bilateral TMJ and 4th left PIP steroid injections on 02/04/2018. His arthritis worsened while on Tocilizumab so he was switched to Remicade IV and pulse steroids while admitted in February 2018. Remicade dose was increased in March and May 2018. He was switched from Remicade to Rituximab in June 2018. He was given another course of oral steroids in June 2018 for worsening arthritis. He was started on weekly IV pulse steroids in July 2018. His sulfasalazine was stopped in July and switched to azathioprine. He stopped azathioprine in August 2018. He was started on Rituximab in June 2018. He was diagnosed with IBD in March (more content not included)... Normal [facility] COMPLETE BLOOD COUNT WITH DI FFERENTIALon 03-30-2024 Basophils (Bld) [#/Vol] 0.04 10*3/uL Normal 0.02-0.06 [facility] Comment on above: Order Comment: Relea se to patient->Automatic Performed By: #### 1 001 #### VANNA Quintana ([id number]) [employer]) [address] Basophils/100 WBC (Bld) 0.6 % Normal 0.3-1.0 [facility] Comment on above: Order Comment: Relea se to patient->Automatic Performed By: #### 1 001 #### VANNA [employer] [facility] ([id number]) [employer] [facility] ([employer]) [address] Eosinophils (Bld) [#/Vol] 0.18 10*3/uL Normal 0.04-0.31 [facility] Comment on above: Order Comment: Relea se to patient->Automatic Performed By: #### 1 001 #### VANNA BACCON W ([id number]) [facility] ([employer]) [address] Eosinophils/100 WBC (Bld) 2.6 % Normal 0.7-4.6 [facility] Comment on above: Order Comment: Relea se to patient->Automatic Performed By: #### 1 001 #### VANNA BACCON W ([id number]) [facility] ([employer]) [address] Erythrocyte distribution width (RBC) [Ratio] 12.3 % Normal 11.9-13.5 [facility] Comment on above: Order Comment: Relea se to patient->Automatic Performed By: #### 1 001 #### VANNA BACCON W ([id number]) [place] [facility] ([employer]) [address] Hematocrit (Bld) [Volume fraction] 46.1 % Normal 40.6-50.2 [facility] Comment on above: Order Comment: Relea se to patient->Automatic Performed By: #### 1 001 #### VANNA BACCON W ([id number]) [place] [facility] ([employer]) [address] Hemoglobin (Bld) [Mass/Vol] 15.5 g/dL Normal 13.5-17.0 [facility] Comment on above: Order Comment: Relea se to patient->Automatic Performed By: #### 1 001 #### VANNA BACCON W ([id number]) [place] [facility] ([employer]) [address] Immature granulocytes/100 WBC (Bld) 0.3 % Normal 0.2-0.5 [facility] Comment on above: Order Comment: Relea se to patient->Automatic Result Comment: Jillian ture Granulocyte Percent includes promyelocytes, myelocytes,and metamyelocytes. IG% > 1.0 indicates a left shift is present. With automated differentials, bands are included in the neutrophil count and not in the Immature Granulocyte Percent. Performed By: #### 1 001 #### VANNA SAENZ W ([id number]) [facility] ([employer]) [address] Lymphocytes (Bld) [#/Vol] 1.52 10*3/uL Normal 1.39-2.72 [facility] Comment on above: Order Comment: Relea se to patient->Automatic Performed By: #### 1 001 #### VANNA BACCON W ([id number]) [facility] ([employer]) [address] Lymphocytes/100 WBC (Bld) 22.1 % Normal 20.0-42.9 [facility] Comment on above: Order Comment: Relea se to patient->Automatic Performed By: #### 1 001 #### VANNA BACCON W ([id number]) [place] [facility] ([employer]) [address] MCH (RBC) [Entitic mass] 29.9 pg Normal 27.3-31.2 [facility] Comment on above: Order Comment: Relea se to patient->Automatic Performed By: #### 1 001 #### VANNA BACCON W ([id number]) [place] [facility] ([employer]) [address] MCHC 33.6 % Normal 32.1-34.8 [facility] Comment on above: Order Comment: Relea se to patient->Automatic Performed By: #### 1 001 #### VANNA BACCON W ([id number]) [facility] ([employer]) [address] MCV (RBC) [Entitic vol] 88.8 fL Normal 82.8-92.0 [facility] Comment on above: Order Comment: Relea se to patient->Automatic Performed By: #### 1 001 #### VANNA BACCON W ([id number]) [facility] ([employer]) [address] Monocytes (Bld) [#/Vol] 0.67 10*3/uL Normal 0.38-0.83 [facility] Comment on above: Order Comment: Relea se to patient->Automatic Performed By: #### 1 001 #### VANNA SAENZ W ([id number]) [facility] ([email or web address]) [address] Monocytes/100 WBC (Bld) 9.7 % Normal 6.5-11.5 [facility] Comment on above: Order Comment: Relea se to patient->Automatic Performed By: #### 1 001 #### VANNA BACCON W ([id number]) [facility] ([email or web address]) [address] Neutrophils (Bld) [#/Vol] 4.45 10*3/uL Normal 2.07-6.00 [facility] Comment on above: Order Comment: Relea se to patient->Automatic Performed By: #### 1 001 #### VANNA SAENZ W ([id number]) [facility] ([email or web address]) [address] Neutrophils/100 WBC (Bld) 64.7 % Normal 43.5-69.0 [facility] Comment on above: Order Comment: Relea se to patient->Automatic Performed By: #### 1 001 #### VANNA SAENZ W ([id number]) [place] [facility] ([employer]) [address] Nucleated RBC/100 WBC (Bld) [Ratio] 0.0 % Normal 0.0-0.0 [facility] Comment on above: Order Comment: Relea se to patient->Automatic Performed By: #### 1 001 #### VANNA SAENZ W ([id number]) [facility] ([email or web address]) [address] Platelet mean volume (Bld) [Entitic vol] 9.0 fL Low 9.6-11.8 [facility] Comment on above: Order Comment: Relea se to patient->Automatic Result Comment: MPV is platelet range and age dependent. Performed By: #### 1 001 #### VANNA BACCON W ([id number]) [facility] ([email or web address]) [address] Platelets (Bld) [#/Vol] 219 10*3/uL Normal 150-400 [facility] Comment on above: Order Comment: Relea se to patient->Automatic Performed By: #### 1 001 #### VANNA Quintana ([id number]) [facility] ([employer]) [address] RBC 5.19 10E12/L Normal 4.59-5.58 [facility] Comment on above: Order Comment: Relea se to patient->Automatic Performed By: #### 1 001 #### VANNA Quintana ([id number]) [facility] ([employer]) [address] WBC (Bld) [#/Vol] 6.9 10*3/uL Normal 4.5-9.6 [facility] Comment on above: Order Comment: Relea se to patient->Automatic Performed By: #### 1 001 #### VANNA Quintana ([id number]) [place] [facility] ([employer]) [address] COMPREHENSIVE METABOLIC PANE Ravi 03-30-2024 Albumin [Mass/Vol] 4.5 g/dL Normal 3.5-5.0 [facility] Comment on above: Order Comment: Relea se to patient->Automatic Performed By: #### 1 001 #### VANNA Quintana ([id number]) [facility] ([employer]) [address] ALP [Catalytic activity/Vol] 63 U/L Normal 40-129 [facility] Comment on above: Order Comment: Relea se to patient->Automatic Performed By: #### 1 001 #### VANNA SAENZ W ([id number]) [facility] ([employer]) [address] ALT [Catalytic activity/Vol] 13 U/L Normal <=46 [facility] Comment on above: Order Comment: Relea se to patient->Automatic Performed By: #### 1 001 #### VANNA SAENZ W ([id number]) [place] ([employer]) [address] AST [Catalytic activity/Vol] 24 U/L Normal <=37 [facility] Comment on above: Order Comment: Relea se to patient->Automatic Performed By: #### 1 001 #### VANNA SAENZ W ([id number]) [facility] ([email or web address]) [place] [address] [place] BILI,TOTAL 0.5 MG/DL Normal <=1.0 [facility] Comment on above: Order Comment: Relea se to patient->Automatic Performed By: #### 1 001 #### VANNA BACCON W ([id number]) [facility] ([email or web address]) [place] [address] [place] Calcium [Mass/Vol] 9.6 mg/dL Normal 7.6-11.0 [facility] Comment on above: Order Comment: Relea se to patient->Automatic Performed By: #### 1 001 #### VANNA BACCON W ([id number]) [facility] ([email or web address]) [place] [address] [place] Chloride [Moles/Vol] 104 mmol/L Normal 96-108 [facility] Comment on above: Order Comment: Relea se to patient->Automatic Performed By: #### 1 001 #### VANNA BACCON W ([id number]) [facility] ([email or web address]) [place] [address] [place] CO2 [Moles/Vol] 25.0 mmol/L Normal 22.0-29.0 [facility] Comment on above: Order Comment: Relea se to patient->Automatic Performed By: #### 1 001 #### VANNA BACCON W ([id number]) [facility] ([employer]) [place] [address] [place] Creatinine [Mass/Vol] 0.90 mg/dL Normal 0.70-1.20 [facility] Comment on above: Order Comment: Relea se to patient->Automatic Performed By: #### 1 001 #### VANNA BACCON W ([id number]) [facility] ([email or web address]) [place] [address] [place] GFR/1.73 sq M.predicted among non-blacks MDRD (S/P/Bld) [Vol rate/Area] mL/min/{1.73_m2} Normal >=60 [facility] Comment on above: Order Comment: Relea se to patient->Automatic Performed By: #### 1 001 #### VANNA BACCON W ([id number]) [facility] ([place]) [place] [address] [place] Glucose [Mass/Vol] 84 mg/dL Normal 70-99 [facility] Comment on above: Order Comment: Relea se to patient->Automatic Result Comment: Crit eria for Diagnosis of Diabetes: Fasting Specimen (no caloric intake for at least 8 hours): <100 mg/dL Normal 100-125 mg/dL Increased risk for Diabetes >125 mg/dL Diagnostic for Diabetes Random Glucose (any time of day without regard to last meal): > or = 200 mg/dL plus Classic Symptoms of Diabetes Performed By: #### 1 001 #### VANNA BACCON W ([id number]) [facility] ([place]) [place] [address] [place] Potassium [Moles/Vol] 4.0 mmol/L Normal 3.3-5.1 [facility] Comment on above: Order Comment: Relea se to patient->Automatic Performed By: #### 1 001 #### VANNA BACCON W ([id number]) [facility] ([place]) [place] [address] [place] Protein [Mass/Vol] 7.2 g/dL Normal 5.9-8.4 [facility] Comment on above: Order Comment: Relea se to patient->Automatic Performed By: #### 1 001 #### VANNA BACCON W ([id number]) [facility] ([place]) [place] [address] [place] Sodium [Moles/Vol] 139 mmol/L Normal 133-145 [facility] Comment on above: Order Comment: Relea se to patient->Automatic Performed By: #### 1 001 #### VANNA BACCON W ([id number]) [employer] [facility] ([place]) [place] [address] [place] Urea nitrogen [Mass/Vol] 9 mg/dL Normal 4-19 [facility] Comment on above: Order Comment: Relea se to patient->Automatic Performed By: #### 1 001 #### VANNA BACCON W ([id number]) [place] ([employer]) [address] Complete Blood CountOrdered By: Susan Hammer on 03-30-2024 Basophils (Bld) [#/Vol] 0.04 10*3/uL [facility] Basophils/100 WBC (Bld) 0.6 % 0.3 - 1.0 % [facility] Eosinophils (Bld) [#/Vol] 0.18 10*3/uL [facility] Eosinophils/100 WBC (Bld) 2.6 % 0.7 - 4.6 % [facility] Erythrocyte distribution width (RBC) [Ratio] 12.3 % 11.9 - 13.5 % [facility] Hematocrit (Bld) [Volume fraction] 46.1 % 40.6 - 50.2 % [facility] Hemoglobin (Bld) [Mass/Vol] 15.5 g/dL 13.5 - 17.0 g/dL [facility] Immature granulocytes/100 WBC (Bld) 0.3 % 0.2 - 0.5 % [facility] Comment on above: Immature Granulocyte Percent includes promyelocytes, myelocytes,and metamyelocytes. IG% > 1.0 indicates a left shift is present. With automated differentials, bands are included in the neutrophil count and not in the Immature Granulocyte Percent. Interpretation and review of laboratory results Abnormal [facility] Lymphocytes (Bld) [#/Vol] 1.52 10*3/uL [facility] Lymphocytes/100 WBC (Bld) 22.1 % 20.0 - 42.9 % [facility] MCH (RBC) [Entitic mass] 29.9 pg 27.3 - 31.2 pg [facility] MCHC (RBC) [Mass/Vol] 33.6 % 32.1 - 34.8 % [facility] MCV (RBC) [Entitic vol] 88.8 fL 82.8 - 92.0 fL [facility] Monocytes (Bld) [#/Vol] 0.67 10*3/uL [facility] Monocytes/100 WBC (Bld) 9.7 % 6.5 - 11.5 % [facility] Neutrophils (Bld) [#/Vol] 4.45 10*3/uL [facility] Neutrophils/100 WBC (Bld) 64.7 % 43.5 - 69.0 % [facility] Nucleated RBC/100 WBC (Bld) [Ratio] 0 % 0.0 - 0.0 % [facility] Platelet mean volume (Bld) [Entitic vol] 9 fL Low 9.6 - 11.8 fL [facility] Comment on above: MPV is platelet rang e and age dependent. Platelets (Bld) [#/Vol] 219 10*3/uL [facility] RBC (Bld) [#/Vol] 5.19 10*6/uL [facility] WBC (Bld) [#/Vol] 6.9 10*3/uL [facility] Comprehensive metabolic pane lOrdered By: Background Lab on 03-30-2024 Albumin BCG dye [Mass/Vol] 4.5 g/dL [facility] ALP [Catalytic activity/Vol] 63 U/L 40 - 129 U/L [facility] ALT With P-5'-P [Catalytic activity/Vol] 13 U/L [facility] - 46 U/L [facility] AST With P-5'-P [Catalytic activity/Vol] 24 U/L [facility] - 37 U/L [facility] Bilirubin [Mass/Vol] 0.5 mg/dL [facility] Calcium [Mass/Vol] 9.6 mg/dL [facility] Chloride [Moles/Vol] 104 mmol/L [facility] Creatinine [Mass/Vol] 0.9 mg/dL [facility] eGFR - PINF [facility] Glucose [Mass/Vol] 84 mg/dL [facility] Comment on above: Criteria for Diagnos is of Diabetes: Fasting Specimen (no caloric intake for at least 8 hours): <100 mg/dL Normal 100-125 mg/dL Increased risk for Diabetes >125 mg/dL Diagnostic for Diabetes Random Glucose (any time of day without regard to last meal): > or = 200 mg/dL plus Classic Symptoms of Diabetes HCO3 (P) [Moles/Vol] 25 [facility] Interpretation and review of laboratory results Normal [facility] Potassium (BldA) [Moles/Vol] 4 mmol/L 3.3 - 5.1 mmol/L [facility] Protein [Mass/Vol] 7.2 g/dL [facility] Sodium [Moles/Vol] 139 mmol/L 133 - 145 mmol/L [facility] Urea nitrogen [Mass/Vol] 9 mg/dL [facility] ERYTHROCYTE SEDIMENTATION RA Courtney 03-30-2024 ESR (Bld) [Velocity] 11 mm/h Normal [facility] Comment on above: Order Comment: Relea se to patient->Automatic Result Comment: Newb orn: 0-2 mm/hr [place] to puberty: 3-13 mm/hr Less than 50 years old: Male: <15 mm/hr Female: <20 mm/hr Greater than 50 years old: Male: <20 mm/hr Female: <30 mm/hr Performed By: #### 1 001 #### VANNA Quintana ([id number]) [place] [facility] ([employer]) [address] Erythrocyte Sedimentation Ra teOrdered By: Alicia Jordan on 03-30-2024 ESR Photometric method (Bld) [Velocity] 11 mm/hr [facility] Comment on above: [place]: 0-2 mm/hr to puberty: 3-13 mm/hr Less than 50 years old: Male: <15 mm/hr Female: <20 mm/hr Greater than 50 years old: Male: <20 mm/hr Female: <30 mm/hr [facility] URINALYSIS, COMPLETEon 03-30 Bilirubin Ql (U) Negative Normal Negative [facility] Comment on above: Order Comment: Relea se to patient->Automatic Performed By: #### 2 100 #### VANNA Quintana ([id number]) [place] [employer]) [address] Character Clear Normal [facility] Comment on above: Order Comment: Relea se to patient->Automatic Performed By: #### 2 100 #### VANNA BACCON W ([id number]) [facility] ([place]) [place] [address] [facility] Color (U) Light Yellow Normal [facility] Comment on above: Order Comment: Relea se to patient->Automatic Performed By: #### 2 100 #### VANNA BACCON W ([id number]) [facility] ([place]) [place] [address] [place] Glucose Ql (U) Normal Normal Normal [facility] Comment on above: Order Comment: Relea se to patient->Automatic Performed By: #### 2 100 #### VANNA BACCON W ([id number]) [facility] ([place]) [place] [address] [place] Ketones Ql (U) Negative Normal Negative [facility] Comment on above: Order Comment: Relea se to patient->Automatic Performed By: #### 2 100 #### VANNA BACCON W ([id number]) [facility] ([place]) [place] [address] [facility] Leukocyte esterase Test strip Ql (U) Negative Normal Negative [facility] Comment on above: Order Comment: Relea se to patient->Automatic Performed By: #### 2 100 #### VANNA BACCON W ([id number]) [facility] ([facility]) [place], [place] [id number] [place] [address] Mucous Small Abnormal Negative [facility] Comment on above: Order Comment: Relea se to patient->Automatic Performed By: #### 2 100 #### VANNA BACCON W ([id number]) [facility] ([email or web address]) [place] [address] [place] Nitrite Ql (U) Negative Normal Negative [facility] Comment on above: Order Comment: Relea se to patient->Automatic Performed By: #### 2 100 #### VANNA BACCON W ([id number]) [facility] ([place]) [place] [address] [place] pH (U) 6.5 [pH] Normal 5.0-8.0 [facility] Comment on above: Order Comment: Relea se to patient->Automatic Performed By: #### 2 100 #### VANNA SAENZ W ([id number]) [facility] ([email or web address]) [address] Protein Ql (U) Negative Normal Neg.-Trace [facility] Comment on above: Order Comment: Relea se to patient->Automatic Performed By: #### 2 100 #### VANNA SAENZ W ([id number]) [facility] ([email or web address]) [address] RBC (U) [#/Vol] 1.0 /uL Normal <=20.0 [facility] Comment on above: Order Comment: Relea se to patient->Automatic Performed By: #### 2 100 #### VANNA BACMAGALYS W ([id number]) [facility] ([facility]) [address] Renal Epithelial Cells 0.0 /uL Normal <=20.0 [facility] Comment on above: Order Comment: Relea se to patient->Automatic Performed By: #### 2 100 #### VANNA BACMAGALYS W ([id number]) [facility] ([facility]) [address] Specific gravity (U) [Rel density] 1.011 Normal Reference Range: 1.005-1.030 [facility] Comment on above: Order Comment: Relea se to patient->Automatic Performed By: #### 2 100 #### VANNA SAENZ W ([id number]) [facility] ([facility]) [address] Squamous Epithelial Cells 0.0 /uL Normal <=20.0 [facility] Comment on above: Order Comment: Relea se to patient->Automatic Performed By: #### 2 100 #### VANNA BACCON W ([id number]) [facility] ([facility]) [place] [address] [place] Transitional Epithelial Cells 0.0 /uL Normal <=20.0 [facility] Comment on above: Order Comment: Relea se to patient->Automatic Performed By: #### 2 100 #### VANNA BACCON W ([id number]) [facility] ([email or web address]) [address] Urobilinogen Normal Normal Normal [facility] Comment on above: Order Comment: Relea se to patient->Automatic Performed By: #### 2 100 #### VANNA Quintana ([id number]) [facility] ([facility]) [address] Volume 12 mL Normal [facility] Comment on above: Order Comment: Relea se to patient->Automatic Performed By: #### 2 100 #### VANNA Quintana ([id number]) [facility] ([facility]) [address] WBC (U) [#/Vol] 2.0 /uL Normal <=20.0 [facility] Comment on above: Order Comment: Relea se to patient->Automatic Performed By: #### 2 100 #### VANNA Quintana ([id number]) [facility] [email or web address]) [address] Urinalysis, completeOrdered By: Evan Geller on 03-30-2024 Bilirubin Ql (U) Negative Negative [facility] Character Clear [facility] Color (U) Light Yellow [facility] Epithelial cells.non-squamous Auto Ql (U) 0 /uL [facility] - 20.0 /uL [facility] Epithelial cells.renal Computer assisted Ql (U) 0 /[facility]L [facility] - 20.[facility] /uL [facility] Epithelial cells.squamous Auto Ql (U) 0 /uL [facility] - 20.0 /uL [facility] Glucose Auto test strip Ql (U) Normal Normal [facility] Hemoglobin Auto test strip Ql (U) Negative Negative [facility] Interpretation and review of laboratory results Abnormal [facility] Ketones (U) [Mass/Vol] Negative Negative [facility] Leukocyte esterase Auto test strip Ql (U) Negative Negative Yrn/uL [facility] Mucus Auto Ql (U) Small Abnormal Negative [facility] Nitrite Ql (U) Negative Negative [facility] pH (U) 6.5 [pH] 5.0 - 8.0 [facility] Protein (U) [Mass/Vol] Negative Neg.-Trace [facility] RBC Ql (U) 1 /uL NINF - 20.0 /uL [facility] Specific gravity Refractometry automated (U) [Rel density] 1.011 Reference Range: 1.005-1.030 [facility] Specimen volume (U) 12 mL [facility] Urobilinogen (U) [Mass/Vol] Normal Normal mg/dL [facility] WBC Auto Ql (U) 2 /uL NINF - 20.0 /uL [facility] VITAMIN D 1,25 DIHYDROXYon 1 Vitamin D, 1,25-Dihydroxy 31 pg/mL Normal 18-64 [facility] Comment on above: Order Comment: Relea se to patient->Automatic Result Comment: ADDITIONAL INFORMATION This test was developed and its performance characteristics determined by [facility] in a manner consistent with CLIA requirements. This test has not been cleared or approved by the U.S. Food and Drug Administration. Test Performed by: [facility] [place] [address] Housekeeping Assistant: Alex Guadarrama Ph.D.; CLIA# [id number] Performed By: #### 2 100 #### VANNA Quintana ([id number]) [employer]) [address] COMPLETE BLOOD COUNT WITH DI FFERENTIALon 03-16-2024 Basophils (Bld) [#/Vol] 0.04 10*3/uL Normal 0.02-0.06 [facility] Comment on above: Order Comment: Relea se to patient->Automatic Performed By: #### 1 001 #### VANNA Quintana ([id number]) [employer]) [address] Basophils/100 WBC (Bld) 0.6 % Normal 0.3-1.0 [facility] Comment on above: Order Comment: Relea se to patient->Automatic Performed By: #### 1 001 #### VANNA Quintana ([id number]) [facility]) [address] Eosinophils (Bld) [#/Vol] 0.16 10*3/uL Normal 0.04-0.31 [facility] Comment on above: Order Comment: Relea se to patient->Automatic Performed By: #### 1 001 #### VANNA WOOCON W ([id number]) [facility] ([facility]) [address] Eosinophils/100 WBC (Bld) 2.2 % Normal 0.7-4.6 [facility] Comment on above: Order Comment: Relea se to patient->Automatic Performed By: #### 1 001 #### VANNA [employer] W ([id number]) [facility] ([facility]) [address] Erythrocyte distribution width (RBC) [Ratio] 12.4 % Normal 11.9-13.5 [facility] Comment on above: Order Comment: Relea se to patient->Automatic Performed By: #### 1 001 #### VANNA SAENZ W ([id number]) [facility] ([facility]) [address] Hematocrit (Bld) [Volume fraction] 43.8 % Normal 40.6-50.2 [facility] Comment on above: Order Comment: Relea se to patient->Automatic Performed By: #### 1 001 #### VANNA SAENZ W ([id number]) [facility] ([facility]) [address] Hemoglobin (Bld) [Mass/Vol] 15.0 g/dL Normal 13.5-17.0 [facility] Comment on above: Order Comment: Relea se to patient->Automatic Performed By: #### 1 001 #### VANNA BACCON W ([id number]) [facility] ([facility]) [address] Immature granulocytes/100 WBC (Bld) 0.3 % Normal 0.2-0.5 [facility] Comment on above: Order Comment: Relea se to patient->Automatic Result Comment: Jillian ture Granulocyte Percent includes promyelocytes, myelocytes,and metamyelocytes. IG% > 1.0 indicates a left shift is present. With automated differentials, bands are included in the neutrophil count and not in the Immature Granulocyte Percent. Performed By: #### 1 001 #### VANNA Quintana ([id number]) [facility] ([facility]) [address] Lymphocytes (Bld) [#/Vol] 1.59 10*3/uL Normal 1.39-2.72 [facility] Comment on above: Order Comment: Relea se to patient->Automatic Performed By: #### 1 001 #### VANNA Quintana ([id number]) [facility] ([facility]) [address] Lymphocytes/100 WBC (Bld) 22.1 % Normal 20.0-42.9 [facility] Comment on above: Order Comment: Relea se to patient->Automatic Performed By: #### 1 001 #### VANNA SAENZ W ([id number]) [facility] ([facility]) [address] MCH (RBC) [Entitic mass] 30.4 pg Normal 27.3-31.2 [facility] Comment on above: Order Comment: Relea se to patient->Automatic Performed By: #### 1 001 #### VANNA SAENZ W ([id number]) [facility] ([facility]) [address] MCHC 34.2 % Normal 32.1-34.8 [facility] Comment on above: Order Comment: Relea se to patient->Automatic Performed By: #### 1 001 #### VANNA SAENZ W ([id number]) [facility] ([facility]) [address] MCV (RBC) [Entitic vol] 88.8 fL Normal 82.8-92.0 [facility] Comment on above: Order Comment: Relea se to patient->Automatic Performed By: #### 1 001 #### VANNA SAENZ W ([id number]) [facility] ([facility]) [address] Monocytes (Bld) [#/Vol] 0.49 10*3/uL Normal 0.38-0.83 [facility] Comment on above: Order Comment: Relea se to patient->Automatic Performed By: #### 1 001 #### VANNA SAENZ W ([id number]) [facility] ([facility]) ONE [address] Monocytes/100 WBC (Bld) 6.8 % Normal 6.5-11.5 [facility] Comment on above: Order Comment: Relea se to patient->Automatic Performed By: #### 1 001 #### VANNA SAENZ W ([id number]) [facility] ([facility]) [place] [address] [place] Neutrophils (Bld) [#/Vol] 4.90 10*3/uL Normal 2.07-6.00 [facility] Comment on above: Order Comment: Relea se to patient->Automatic Performed By: #### 1 001 #### VANNA SAENZ W ([id number]) [facility] ([facility]) ONE [address] Neutrophils/100 WBC (Bld) 68.0 % Normal 43.5-69.0 [facility] Comment on above: Order Comment: Relea se to patient->Automatic Performed By: #### 1 001 #### VANNA SAENZ W ([id number]) [facility] ([facility]) [address] Nucleated RBC/100 WBC (Bld) [Ratio] 0.0 % Normal 0.0-0.0 [facility] Comment on above: Order Comment: Relea se to patient->Automatic Performed By: #### 1 001 #### VANNA SAENZ W ([id number]) [facility] ([facility]) [address] Platelet mean volume (Bld) [Entitic vol] 8.9 fL Low 9.6-11.8 [facility] Comment on above: Order Comment: Relea se to patient->Automatic Result Comment: MPV is platelet range and age dependent. Performed By: #### 1 001 #### VANNA SAENZ W ([id number]) [facility] ([facility]) ONE [address] Platelets (Bld) [#/Vol] 212 10*3/uL Normal 150-400 [facility] Comment on above: Order Comment: Relea se to patient->Automatic Performed By: #### 1 001 #### VANNA Quintana ([id number]) [facility] ([facility]) [address] RBC 4.93 10E12/L Normal 4.59-5.58 [facility] Comment on above: Order Comment: Relea se to patient->Automatic Performed By: #### 1 001 #### VANNA Quintana ([id number]) [facility] ([facility]) [address] WBC (Bld) [#/Vol] 7.2 10*3/uL Normal 4.5-9.6 [facility] Comment on above: Order Comment: Relea se to patient->Automatic Performed By: #### 1 001 #### VANNA Quintana ([id number]) [facility] ([facility]) [address] COMPREHENSIVE METABOLIC PANE Ravi 03-16-2024 Albumin [Mass/Vol] 4.6 g/dL Normal 3.5-5.0 [facility] Comment on above: Order Comment: Relea se to patient->Automatic Result Comment: Veri fied By: [id number] Performed By: #### 2 100 #### VANNA Quintana ([id number]) [facility] ([facility]) [address] ALP [Catalytic activity/Vol] 58 U/L Normal 40-129 [facility] Comment on above: Order Comment: Relea se to patient->Automatic Result Comment: Veri fied By: [id number] Performed By: #### 2 100 #### VANNA SAENZ W ([id number]) [facility] ([facility]) [address] ALT [Catalytic activity/Vol] 14 U/L Normal <=46 [facility] Comment on above: Order Comment: Relea se to patient->Automatic Result Comment: Veri fied By: [id number] Performed By: #### 2 100 #### VANNA BACCON W ([id number]) [facility] ([email or web address]) [place] [address] [place] AST [Catalytic activity/Vol] 21 U/L Normal <=37 [facility] Comment on above: Order Comment: Relea se to patient->Automatic Result Comment: Veri fied By: [id number] Performed By: #### 2 100 #### VANNA BACCON W ([id number]) [facility] ([email or web address]) [place] [address] [place] BILI,TOTAL 0.4 MG/DL Normal <=1.0 [facility] Comment on above: Order Comment: Relea se to patient->Automatic Result Comment: Veri fied By: [id number] Performed By: #### 2 100 #### VANNA BACCON W ([id number]) [facility] ([email or web address]) [place] [address] [place] Calcium [Mass/Vol] 9.6 mg/dL Normal 7.6-11.0 [facility] Comment on above: Order Comment: Relea se to patient->Automatic Result Comment: Veri fied By: [id number] Performed By: #### 2 100 #### VANNA BACCON W ([id number]) [facility] ([email or web address]) [place] [address] [place] Chloride [Moles/Vol] 105 mmol/L Normal 96-108 [facility] Comment on above: Order Comment: Relea se to patient->Automatic Result Comment: Veri fied By: [id number] Performed By: #### 2 100 #### VANNA BACCON W ([id number]) [facility] ([email or web address]) [place] [address] [place] CO2 [Moles/Vol] 22.6 mmol/L Normal 22.0-29.0 [facility] Comment on above: Order Comment: Relea se to patient->Automatic Result Comment: Veri fied By: [id number] Performed By: #### 2 100 #### VANNA BACCON W ([id number]) [facility] ([email or web address]) [place] [address] [place] Creatinine [Mass/Vol] 0.89 mg/dL Normal 0.70-1.20 [facility] Comment on above: Order Comment: Relea se to patient->Automatic Result Comment: Veri fied By: [id number] Performed By: #### 2 100 #### VANNA Quintana ([id number]) [facility] ([facility]) [place] [address] [place] GFR/1.73 sq M.predicted among non-blacks MDRD (S/P/Bld) [Vol rate/Area] mL/min/{1.73_m2} Normal >=60 [facility] Comment on above: Order Comment: Relea se to patient->Automatic Performed By: #### 2 100 #### VANNA Quintana ([id number]) [facility] ([facility]) [place], [place] [id number] [place] [address] Glucose [Mass/Vol] 104 mg/dL High 70-99 [facility] Comment on above: Order Comment: Relea se to patient->Automatic Result Comment: Patricia hernandez for Diagnosis of Diabetes: Fasting Specimen (no caloric intake for at least 8 hours): <100 mg/dL Normal 100-125 mg/dL Increased risk for Diabetes >125 mg/dL Diagnostic for Diabetes Random Glucose (any time of day without regard to last meal): > or = 200 mg/dL plus Classic Symptoms of Diabetes Verified By: [id number] Performed By: #### 2 100 #### VANNA SAENZ [facility] ([id number]) [facility] ([facility]) [place] [address] [place] Potassium [Moles/Vol] 3.8 mmol/L Normal 3.3-5.1 [facility] Comment on above: Order Comment: Relea se to patient->Automatic Result Comment: Veri fied By: [id number] Performed By: #### 2 100 #### VANNA [employer] [facility] ([id number]) [place] ([facility]) [place] [address] [place] Protein [Mass/Vol] 7.1 g/dL Normal 5.9-8.4 [facility] Comment on above: Order Comment: Relea se to patient->Automatic Result Comment: Veri fied By: [id number] Performed By: #### 2 100 #### VANNA BACCON W ([id number]) [facility] ([facility]) [address] Sodium [Moles/Vol] 139 mmol/L Normal 133-145 [facility] Comment on above: Order Comment: Relea se to patient->Automatic Result Comment: Veri fied By: [id number] Performed By: #### 2 100 #### VANNA BACCON W ([id number]) [facility] ([facility]) [address] Urea nitrogen [Mass/Vol] 9 mg/dL Normal 4-19 [facility] Comment on above: Order Comment: Relea se to patient->Automatic Result Comment: Veri fied By: [id number] Performed By: #### 2 100 #### VANNA [employer] W ([id number]) [facility] ([facility]) [address] Complete Blood CountOrdered By: Nydia Shi on 03-16-2024 Basophils (Bld) [#/Vol] 0.04 10*3/uL [facility] Basophils/100 WBC (Bld) 0.6 % 0.3 - 1.0 % [facility] Eosinophils (Bld) [#/Vol] 0.16 10*3/uL [facility] Eosinophils/100 WBC (Bld) 2.2 % 0.7 - 4.6 % [facility] Erythrocyte distribution width (RBC) [Ratio] 12.4 % 11.9 - 13.5 % [facility] Hematocrit (Bld) [Volume fraction] 43.8 % 40.6 - 50.2 % [facility] Hemoglobin (Bld) [Mass/Vol] 15 g/dL 13.5 - 17.0 g/dL [facility] Immature granulocytes/100 WBC (Bld) 0.3 % 0.2 - 0.5 % [facility] Comment on above: Immature Granulocyte Percent includes promyelocytes, myelocytes,and metamyelocytes. IG% > 1.0 indicates a left shift is present. With automated differentials, bands are included in the neutrophil count and not in the Immature Granulocyte Percent. Interpretation and review of laboratory results Abnormal [facility] Lymphocytes (Bld) [#/Vol] 1.59 10*3/uL [facility] Lymphocytes/100 WBC (Bld) 22.1 % 20.0 - 42.9 % [facility] MCH (RBC) [Entitic mass] 30.4 pg 27.3 - 31.2 pg [facility] MCHC (RBC) [Mass/Vol] 34.2 % 32.1 - 34.8 % [facility] MCV (RBC) [Entitic vol] 88.8 fL 82.8 - 92.0 fL [facility] Monocytes (Bld) [#/Vol] 0.49 10*3/uL [facility] Monocytes/100 WBC (Bld) 6.8 % 6.5 - 11.5 % [facility] Neutrophils (Bld) [#/Vol] 4.9 10*3/uL [facility] Neutrophils/100 WBC (Bld) 68 % 43.5 - 69.0 % [facility] Nucleated RBC/100 WBC (Bld) [Ratio] 0 % 0.0 - 0.0 % [facility] Platelet mean volume (Bld) [Entitic vol] 8.9 fL Low 9.6 - 11.8 fL [facility] Comment on above: MPV is platelet rang e and age dependent. Platelets (Bld) [#/Vol] 212 10*3/uL [facility] RBC (Bld) [#/Vol] 4.93 10*6/uL [facility] WBC (Bld) [#/Vol] 7.2 10*3/uL [facility] Comprehensive metabolic pane lOrdered By: Background Lab on 03-16-2024 Albumin BCG dye [Mass/Vol] 4.6 g/dL [facility] Comment on above: Verified By: [id number] ALP [Catalytic activity/Vol] 58 U/L 40 - 129 U/L [facility] Comment on above: Verified By: [id number] ALT With P-5'-P [Catalytic activity/Vol] 14 U/L [facility] - 46 U/L [facility] Comment on above: Verified By: [id number] AST With P-5'-P [Catalytic activity/Vol] 21 U/L [facility] - 37 U/L [facility] Comment on above: Verified By: [id number] Bilirubin [Mass/Vol] 0.4 mg/dL [facility] Comment on above: Verified By: [id number] Calcium [Mass/Vol] 9.6 mg/dL [facility] Comment on above: Verified By: [id number] Chloride [Moles/Vol] 105 mmol/L [facility] Comment on above: Verified By: [id number] Creatinine [Mass/Vol] 0.89 mg/dL [facility] Comment on above: Verified By: [id number] eGFR - PINF [facility] Glucose [Mass/Vol] 104 mg/dL High [facility] Comment on above: Criteria for Diagnos is of Diabetes: Fasting Specimen (no caloric intake for at least 8 hours): <100 mg/dL Normal 100-125 mg/dL Increased risk for Diabetes >125 mg/dL Diagnostic for Diabetes Random Glucose (any time of day without regard to last meal): > or = 200 mg/dL plus Classic Symptoms of Diabetes Verified By: [id number] HCO3 (P) [Moles/Vol] 22.6 [facility] Comment on above: Verified By: [id number] Interpretation and review of laboratory results Abnormal [facility] Potassium (BldA) [Moles/Vol] 3.8 mmol/L 3.3 - 5.1 mmol/L [facility] Comment on above: Verified By: [id number] Protein [Mass/Vol] 7.1 g/dL [facility] Comment on above: Verified By: [id number] Sodium [Moles/Vol] 139 mmol/L 133 - 145 mmol/L [facility] Comment on above: Verified By: [id number] Urea nitrogen [Mass/Vol] 9 mg/dL [facility] Comment on above: Verified By: [id number] [facility] ERYTHROCYTE SEDIMENTATION RA Courtney 03-16-2024 ESR (Bld) [Velocity] 8 mm/h Normal [facility] Comment on above: Order Comment: Relea se to patient->Automatic Result Comment: Newb orn: 0-2 mm/hr [place] to puberty: 3-13 mm/hr Less than 50 years old: Male: <15 mm/hr Female: <20 mm/hr Greater than 50 years old: Male: <20 mm/hr Female: <30 mm/hr Performed By: #### 2 926 #### VANNA Quintana ([id number]) [employer]) [address] Erythrocyte Sedimentation Ra teOrdered By: Cesario Pedro on 03-16-2024 ESR Photometric method (Bld) [Velocity] 8 mm/hr [facility] Comment on above: : 0-2 mm/hr [place] to puberty: 3-13 mm/hr Less than 50 years old: Male: <15 mm/hr Female: <20 mm/hr Greater than 50 years old: Male: <20 mm/hr Female: <30 mm/hr [facility] URINALYSIS, COMPLETEon 03-16 Bilirubin Ql (U) Negative Normal Negative [facility] Comment on above: Order Comment: Relea se to patient->Automatic Performed By: #### 1 001 #### VANNA Quintana ([id number]) [employer]) [address] Character Clear Normal [facility] Comment on above: Order Comment: Relea se to patient->Automatic Performed By: #### 1 001 #### VANNA Quintana ([id number]) [employer]) [address] Color (U) Colorless Normal [facility] Comment on above: Order Comment: Relea se to patient->Automatic Performed By: #### 1 001 #### VANNA Quintana ([id number]) [employer]) [address] Glucose Ql (U) Normal Normal Normal [facility] Comment on above: Order Comment: Relea se to patient->Automatic Performed By: #### 1 001 #### VANNA Quintana ([id number]) [facility] ([facility]) [address] Ketones Ql (U) Negative Normal Negative [facility] Comment on above: Order Comment: Relea se to patient->Automatic Performed By: #### 1 001 #### VANNA SAENZ W ([id number]) [facility] ([email or web address]) [address] Leukocyte esterase Test strip Ql (U) Negative Normal Negative [facility] Comment on above: Order Comment: Relea se to patient->Automatic Performed By: #### 1 001 #### VANNA BACMAGALYS W ([id number]) [facility] ([employer]) [place] [address] [place] Nitrite Ql (U) Negative Normal Negative [facility] Comment on above: Order Comment: Relea se to patient->Automatic Performed By: #### 1 001 #### VANNA BACMAGALYS W ([id number]) [facility] ([employer]) [address] pH (U) 6.0 [pH] Normal 5.0-8.0 [facility] Comment on above: Order Comment: Relea se to patient->Automatic Performed By: #### 1 001 #### VANNA SAENZ W ([id number]) [facility] ([employer]) [address] Protein Ql (U) Negative Normal Neg.-Trace [facility] Comment on above: Order Comment: Relea se to patient->Automatic Performed By: #### 1 001 #### VANNA BACCON W ([id number]) [facility] ([email or web address]) [address] RBC (U) [#/Vol] 1.0 /uL Normal <=20.0 [facility] Comment on above: Order Comment: Relea se to patient->Automatic Performed By: #### 1 001 #### VANNA BACMAGALYS W ([id number]) [facility] ([email or web address]) [address] Renal Epithelial Cells 0.0 /uL Normal <=20.0 [facility] Comment on above: Order Comment: Relea se to patient->Automatic Performed By: #### 1 001 #### VANNA BACCON W ([id number]) [facility] ([facility]) [place] [address] [place] Specific gravity (U) [Rel density] 1.004 Low Reference Range: 1.005-1.030 [facility] Comment on above: Order Comment: Relea se to patient->Automatic Performed By: #### 1 001 #### VANNA BACCON W ([id number]) [facility] ([facility]) [place] [address] [place] Squamous Epithelial Cells 0.0 /uL Normal <=20.0 [facility] Comment on above: Order Comment: Relea se to patient->Automatic Performed By: #### 1 001 #### VANNA BACCON W ([id number]) [facility] ([facility]) [place] [address] [place] Transitional Epithelial Cells 0.0 /uL Normal <=20.0 [facility] Comment on above: Order Comment: Relea se to patient->Automatic Performed By: #### 1 001 #### VANNA BACCON W ([id number]) [facility] ([facility]) [place] [address] [place] Urobilinogen Normal Normal Normal [facility] Comment on above: Order Comment: Relea se to patient->Automatic Performed By: #### 1 001 #### VANNA BACCON W ([id number]) [facility] ([facility]) [place] [address] [place] Volume 12 mL Normal [facility] Comment on above: Order Comment: Relea se to patient->Automatic Performed By: #### 1 001 #### VANNA BACCON W ([id number]) [facility] ([facility]) [place] [address] [place] WBC (U) [#/Vol] 0.0 /uL Normal <=20.0 [facility] Comment on above: Order Comment: Relea se to patient->Automatic Performed By: #### 1 001 #### VANNA BACCON W ([id number]) [facility] ([facility]) [place] [address] [place] Urinalysis, completeOrdered By: Jose Gamez on 03-16-2024 Bilirubin Ql (U) Negative Negative [facility] Character Clear [facility] Color (U) Colorless [facility] Epithelial cells.non-squamous Auto Ql (U) 0 /uL NINF - 20.0 /uL [facility] Epithelial cells.renal Computer assisted Ql (U) 0 /uL NINF - 20.0 /uL [facility] Epithelial cells.squamous Auto Ql (U) 0 /uL NINF - 20.0 /uL [facility] Glucose Auto test strip Ql (U) Normal Normal [facility] Hemoglobin Auto test strip Ql (U) Negative Negative [facility] Interpretation and review of laboratory results Abnormal [facility] Ketones (U) [Mass/Vol] Negative Negative [facility] Leukocyte esterase Auto test strip Ql (U) Negative Negative Yrn/uL [facility] Nitrite Ql (U) Negative Negative [facility] pH (U) 6.0 [pH] 5.0 - 8.0 [facility] Protein (U) [Mass/Vol] Negative Neg.-Trace [facility] RBC Ql (U) 1 /uL [facility] - 20.0 /uL [facility] Specific gravity Refractometry automated (U) [Rel density] 1.004 Low Reference Range: 1.005-1.030 [facility] Specimen volume (U) 12 mL [facility] Urobilinogen (U) [Mass/Vol] Normal Normal mg/dL [facility] WBC Auto Ql (U) 0 /uL NINF - 20.0 /uL [facility] VITAMIN D 1,25 DIHYDROXYon 0 03-16-2024 Vitamin D, 1,25-Dihydroxy 50 pg/mL Normal 18-64 [facility] Comment on above: Order Comment: Relea se to patient->Automatic Result Comment: ADDITIONAL INFORMATION This test was developed and its performance characteristics determined by [facility] in a manner consistent with CLIA requirements. This test has not been cleared or approved by the U.S. Food and Drug Administration. Test Performed by: [place] [address] Housekeeping Assistant: Alex Guadarrama Ph.D.; CLIA# [id number] Performed By: #### 1 001 #### VANNA Quintana ([id number]) [facility] ([facility] USTEKINUMAB QUANTITATION WIT H ANTIBODIES, SERUMon 03-01-2024 USTEKINUMAB AB, S <10 Normal <10 [facility] Comment on above: Order Comment: Cat anderson Type: BLOOD SPECIMEN Ordering Facility: [facility] Address: [address] [place], [place] [id number] Result Comment: Abse nce of detectable eunthbno-lc-zslqmqxmnxc. ADDITIONAL INFORMATION This test was developed and its performance characteristics determined by [facility] in a manner consistent with CLIA requirements. This test has not been cleared or approved by the U.S. Food and Drug Administration. Test Performed by: [facility] [place] [address] Housekeeping Assistant: Alex Guadarrama Ph.D.; CLIA# [id number] Performed By: #### U STEKQ #### [facility] CLIA [id number] [address] [place] [id number] USTEKINUMAB QN, S 8.0 mcg/mL Normal [facility] Comment on above: Order Comment: Cat anderson Type: BLOOD SPECIMEN Ordering Facility: [facility] Address: [address] [place] [address] Result Comment: REFERENCE VALUE Lower limit of quantitation = 0.3 mcg/mL ADDITIONAL INFORMATION This test was developed and its performance characteristics determined by [facility] in a manner consistent with CLIA requirements. This test has not been cleared or approved by the U.S. Food and Drug Administration. Performed By: #### U STEKQ #### [facility] CLIA [id number] [address] [place] [address] Progress Noteon 02-17-2024 [facility] Medical Inpatient Services Authentication Interface Message Text Returning patient Mc Rice is a 23 y.o. male presenting today for Chief Complaint Patient presents with Follow Up RA History of Presenting Problem He is accompanied by his mother. Independent history obtained from mother. Mc was last seen on 10/18/23 via telehealth for polyarticular SHAWNEE and IBD. At that visit, he was having active arthritis so it was discussed started xeljanz in addition to stelara. He also was scheduled for joint injection on 11/01/23 for his right elbow. Since his last visit, Mc has been about the same. He has a right elbow injection which has helped his right elbow. He is able to straighten it more although still has pain occasionally with certain movements. He continues to have right wrist and left shoulder pain. He has limited range of motion of his left shoulder and bilateral wrists. He did have about 6 hours of TMJ pain a few days ago but it has self-resolved. Denies any pain when biting into things or chewing. He does have significant cracking when opening his mouth which causes pain occasionally. He states that his pain is worse when it is hotter and with huge temperature changes. We have had a lot of temperature changes recently. He has about 30 minutes of morning stiffness. He has been taking his medications as prescribed. He states that he hasn't noticed any difference since starting xeljanx in November 2023. He states that he has been more tired since starting xeljanz. He has been taking his relafen without trouble. His last dose of Stelara was 01/25/24 and is due for next dose on 02/28. He is currently at every 5 weeks. He has had two trough levels which were within the normal range. He does feel worse the week prior to his next dose (around week 4). His weight has been stable. He continues to have bouts of abdominal pain, nausea and changes in stool. He takes his weekly vitamin D on Mondays. Denies any recent fevers or illnesses. He has received his COVID vaccines. Last labs 12/28/23. Last GI appointment was 11/30/23 via telehealth with recommended follow up in 3 months. Recommended next EGD + Colonoscopy in 2026. 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 He intially had bilateral ankles and wrists involvement. He did have bilateral ankle steroid injections which resolved the inflammation. He had left wrist steroid injection but he continued to have swelling. He was initially started on Naproxen and then Methotrexate was added. He was on both oral and SQ methotrexate. Enbrel was added because of continued joint swelling but it didn't control his swelling. He was then placed on Orencia IV and methotrexate and his joints improved. He did have left wrist surgery (4th grade) secondary to ganglion cyst. He has had decreased range of motion of his left wrist secondary to correction sequela of arthritis. He had surgery on his right wrist (5th grade) after he fractured it during a skateboarding accident. He has never had uveitis. He had stopped methotrexate and Orencia in 06/01/2016. He was restarted on SQ Orencia in July 2017. 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 He was also started on oral steroids which were weaned off in October 2017. He continued to havejoint pain and swelling so methotrexate SQ was started in August 2017. He had an MRI of his TMJs which showed bilateral effusions and bone edema consistent with arthritis in October 2017. Methotrexate was stopped in November 2017 after side effects (nausea, feeling sick). Orencia was stopped in December 2017 as he continued to have significant swelling and arthritis. He was switched to Tocilizumab in December 2017. Bilateral TMJ and 4th left PIP steroid injections on 02/04/2018. His arthritis worsened while on Tocilizumab so he was switched to Remicade IV and pulse steroids while admitted in February 2018. Remicade dose was increased in March and May 2018. He was switched from Remicade to Rituximab in June 2018. He was given another course of oral steroids in June 2018 for worsening arthritis. He was started on weekly IV pulse steroids in July 2018. His sulfasalazine was stopped in July and switched to azathioprine. He stopped azathioprine in August 2018. He was started on Rituximab in June 2018. He was diagnosed with IBD in March 2019. He was started on Humira in May 2019 after diagnosis with IBD. His arthritis was under control in December 2019. He continued to have active IBD so he was switched to Stelara in January 2020. His celebrex was increased in May 2020. He had active right elbow swelling in September 2020. He was started on sulfasalazine in November 2020. He was lost to follow up between November 2020 and October 2021. During that time (more content not included)... Normal [facility] Saad 01-03-2024 DEAN Telephone (SINGH) MC RICE ([id number]) 1 M Date Time Provider Department 01/03/24 NICK OLSON During your visit today, we recorded the following information about you: Susan Alex MA 01/03/2024 7:24 AM Signed ----- Message from Nick Olson APRN.MANAGER FRONT OFFICE sent at 01/02/2024 11:47 PM EDT ----- Normal cholesterol. No immunity to Hepatitis B - I recommend he receive the vaccine - drug store or health department. Nick Olson APRN.Susan Jones MA 01/03/2024 9:34 AM Signed Patient notified. Susan Alex MA Allergies As of Date: 01/03/2024 (No Known Allergies) Date Reviewed: 12/20/2023 Reviewed by: Nick Olson APRN.CNP - Fully Assessed Reason for Visit: Results [95] Prescriptions as of 01/03/2024 - nabumetone (RELAFEN) 500 mg tablet Take 2 Tablets (1,000 mg) by mouth daily - XELJANZ 5 mg tablet Take 5 mg by mouth. - promethazine (PHENERGAN) 12.5 mg tablet Take 1 tablet by mouth every 6 hours as needed for nausea/vomiting. - cetirizine (ZYRTEC) 10 mg tablet Take 1 tablet by mouth once daily. - ergocalciferol 50,000 unit capsule (VITAMIN D2, DRISDOL) Take 1 capsule by mouth. - ustekinumab (STELARA) 90 mg/mL injection Inject 90 mg subcutaneously. - mesalamine ER (APRISO) 0.375 gram capsule Take 1.5 g by mouth. Take 1.5 g by mouth. - omeprazole (PRILOSEC) 20 mg capsule Take 1 capsule by mouth once daily. 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/12/2013 Immunosuppressed status (HCC) [D84.9] 09/30/2011 06/07/2016 Ganglion cyst of wrist [M67.439] 10/27/2011 01/16/2015 Stiffness of wrist joint [M25.639] 12/03/2011 02/26/2016 Radius and ulna distal fracture [S52.509A, S52.*03/08/2012 01/16/2015 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 SHAWNEE (juvenile idiopathic arthritis), polyarthri*11/22/2014 Limitation of joint motion of wrist [M25.639] 11/22/2014 Unspecified disorder of immune mechanism (HCC) *11/22/2014 02/26/2016 Chronic midline low back pain without sciatica *12/11/2015 Impaired mobility and ADLs [Z74.09, Z78.9] 12/19/2015 Pain in both knees [M25.561, M25.562] 01/31/2016 Left shoulder pain [M25.512] 04/06/2016 Labral tear of shoulder [S43.439A] 04/06/2016 Dislocation, shoulder [S43.006A] 04/06/2016 Rheumatoid arthritis of multiple sites with neg*04/20/2016 Emmetropia [Z01.00] 09/02/2017 Normal eye and vision exam [Z01.00] 09/02/2017 Pain in left wrist [M25.532] 04/29/2018 Pain in right wrist [M25.531] 04/29/2018 Decreased activities of daily living (ADL) [Z78*04/29/2018 Finger pain, left [M79.645] 04/29/2018 Coordination abnormal [R27.8] 04/29/2018 Generalized abdominal pain [R10.84] 11/07/2018 Hematochezia [K92.1] 11/07/2018 Change in bowel habits [R19.4] 11/07/2018 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] 01/09/2019 Other hemorrhoids [K64.8] 01/09/2019 Regular astigmatism of both eyes [H52.223] 04/24/2019 Inflammatory bowel disease [K52.9] 08/21/2019 Diarrhea [R19.7] 01/26/2019 Indeterminate colitis [K52.3] 11/26/2020 long-term (current) use of unspecified immunomo*10/20/2018 Encounter Status:Closed by SUSAN ALEX on 01/03/24 Normal [facility] 25(OH)D3 Juan 2023 25-hydroxyvitamin D3 [Mass/Vol] 32.0 ng/mL Normal >=30.0 [facility] Comment on above: Order Comment: Speci men Type: BLOOD SPECIMEN Ordering Facility: [facility] Address: [address] [place] [address] Result Comment: Clas sification of 25 [place] Vitamin D status: Deficiency: <= 20.0 ng/ml. Insufficiency: 21.0-29.0 ng/ml. Sufficiency: >= 30.0 ng/ml. Performed By: #### 1 989-3 #### [facility] CLIA [id number] [address] CBC W Auto Differential pane l (Bld)on 12-28-2023 Basophils (Bld) [#/Vol] 10*3/uL Normal <0.11 [facility] Comment on above: Order Comment: Speci men Type: BLOOD SPECIMEN Ordering Facility: [facility] Address: [address] [place] [address] Performed By: #### U STEKQ #### [facility] CLIA [id number] [address] [place] [address] Basophils/100 WBC (Bld) 0.3 % Normal [facility] Comment on above: Order Comment: Speci men Type: BLOOD SPECIMEN Ordering Facility: [facility] Address: [address] [place] [address] Performed By: #### U STEKQ #### [facility] CLIA [id number] [address] [place] [address] Differential cell count method Nom (Bld) Auto Normal [facility] Comment on above: Order Comment: Speci men Type: BLOOD SPECIMEN Ordering Facility: [facility] Address: [address] [place] [address] Performed By: #### U STEKQ #### [facility] CLIA [id number] [address] [place] [address] Eosinophils (Bld) [#/Vol] 0.14 10*3/uL Normal <0.46 [facility] Comment on above: Order Comment: Speci men Type: BLOOD SPECIMEN Ordering Facility: [facility] Address: [address] [place] [address] Performed By: #### U STEKQ #### [facility] CLIA [id number] [address] [place] [address] Eosinophils/100 WBC (Bld) 1.8 % Normal [facility] Comment on above: Order Comment: Speci men Type: BLOOD SPECIMEN Ordering Facility: [facility] Address: [address] [place] [address] Performed By: #### U STEKQ #### [facility] CLIA [id number] [address] [place] [address] Erythrocyte distribution width (RBC) [Ratio] 12.3 % Normal 11.5-15.0 [facility] Comment on above: Order Comment: Speci men Type: BLOOD SPECIMEN Ordering Facility: [facility] Address: [address] [place] [address] Performed By: #### U STEKQ #### [facility] CLIA [id number] [address] [place] [address] Hematocrit (Bld) [Volume fraction] 47.4 % Normal 39.0-51.0 [facility] Comment on above: Order Comment: Speci men Type: BLOOD SPECIMEN Ordering Facility: [facility] Address: [address] [place] [address] Performed By: #### U STEKQ #### [facility] CLIA [id number] [address] [place] [address] Hemoglobin (Bld) [Mass/Vol] 15.8 g/dL Normal 13.0-17.0 [facility] Comment on above: Order Comment: Speci men Type: BLOOD SPECIMEN Ordering Facility: [facility] Address: [address] [place] [address] Performed By: #### U STEKQ #### [facility] CLIA [id number] [address] [place] [address] Immature granulocytes (Bld) [#/Vol] 10*3/uL Normal <0.10 [facility] Comment on above: Order Comment: Speci men Type: BLOOD SPECIMEN Ordering Facility: [facility] Address: [address] [place] [address] Performed By: #### U STEKQ #### [facility] CLIA [id number] [address] [place] [address] Immature granulocytes/100 WBC (Bld) 0.1 % Normal [facility] Comment on above: Order Comment: Speci men Type: BLOOD SPECIMEN Ordering Facility: [facility] Address: [address] [place] [address] Performed By: #### U STEKQ #### [facility] CLIA [id number] [address] [place] [address] Lymphocytes (Bld) [#/Vol] 2.25 10*3/uL Normal 1.00-4.00 [facility] Comment on above: Order Comment: Speci men Type: BLOOD SPECIMEN Ordering Facility: [facility] Address: [address] [place] [address] Performed By: #### U STEKQ #### [facility] CLIA [id number] [address] [place] [address] Lymphocytes/100 WBC (Bld) 28.8 % Normal [facility] Comment on above: Order Comment: Speci men Type: BLOOD SPECIMEN Ordering Facility: [facility] Address: [address] [place] [address] Performed By: #### U STEKQ #### [facility] CLIA [id number] [address] [place] [address] MCH (RBC) [Entitic mass] 30.5 pg Normal 26.0-34.0 [facility] Comment on above: Order Comment: Speci men Type: BLOOD SPECIMEN Ordering Facility: [facility] Address: [address] [place] [address] Performed By: #### U STEKQ #### [facility] CLIA [id number] [address] [place] [address] MCHC (RBC) [Mass/Vol] 33.3 g/dL Normal 30.5-36.0 [facility] Comment on above: Order Comment: Speci men Type: BLOOD SPECIMEN Ordering Facility: [facility] Address: [address] [place] [address] Performed By: #### U STEKQ #### [facility] CLIA [id number] [address] [place] [address] MCV (RBC) [Entitic vol] 91.5 fL Normal 80.0-100.0 [facility] Comment on above: Order Comment: Speci men Type: BLOOD SPECIMEN Ordering Facility: [facility] Address: [address] [place] [address] Performed By: #### U STEKQ #### [facility] CLIA [id number] [address] [place] [address] Monocytes (Bld) [#/Vol] 0.60 10*3/uL Normal <0.87 [facility] Comment on above: Order Comment: Speci men Type: BLOOD SPECIMEN Ordering Facility: [facility] Address: [address] [place] [address] Performed By: #### U STEKQ #### [facility] CLIA [id number] [address] [place] [address] Monocytes/100 WBC (Bld) 7.7 % Normal [facility] Comment on above: Order Comment: Speci men Type: BLOOD SPECIMEN Ordering Facility: [facility] Address: [address] [place] [address] Performed By: #### U STEKQ #### [facility] CLIA [id number] [address] [place] [address] Neutrophils (Bld) [#/Vol] 4.78 10*3/uL Normal 1.45-7.50 [facility] Comment on above: Order Comment: Speci men Type: BLOOD SPECIMEN Ordering Facility: [facility] Address: [address] [place] [address] Performed By: #### U STEKQ #### [facility] CLIA [id number] [address] [place] [address] Neutrophils/100 WBC (Bld) 61.3 % Normal [facility] Comment on above: Order Comment: Speci men Type: BLOOD SPECIMEN Ordering Facility: [facility] Address: [address] [place] [address] Performed By: #### U STEKQ #### [facility] CLIA [id number] [address] [place] [address] Nucleated RBC (Bld) [#/Vol] Normal [facility] Comment on above: Order Comment: Speci men Type: BLOOD SPECIMEN Ordering Facility: [facility] Address: [address] [place] [address] Performed By: #### U STEKQ #### [facility] CLIA [id number] [address] [place] [address] Nucleated RBC/100 WBC (Bld) [Ratio] Normal [facility] Comment on above: Order Comment: Speci men Type: BLOOD SPECIMEN Ordering Facility: [facility] Address: [address] [place] [address] Performed By: #### U STEKQ #### [facility] CLIA [id number] [address] [place] [address] Platelet mean volume (Bld) [Entitic vol] 9.0 fL Normal 9.0-12.7 [facility] Comment on above: Order Comment: Speci men Type: BLOOD SPECIMEN Ordering Facility: [facility] Address: [address] [place] [address] Performed By: #### U STEKQ #### [facility] CLIA [id number] [address] [place] [address] Platelets (Bld) [#/Vol] 217 10*3/uL Normal 150-400 [facility] Comment on above: Order Comment: Speci men Type: BLOOD SPECIMEN Ordering Facility: [facility] Address: [address] [place] [address] Performed By: #### U STEKQ #### [facility] CLIA [id number] [address] [place] [address] RBC (Bld) [#/Vol] 5.18 10*6/uL Normal 4.20-6.00 [facility] Comment on above: Order Comment: Speci men Type: BLOOD SPECIMEN Ordering Facility: [facility] Address: [address] [place] [address] Performed By: #### U STEKQ #### [facility] CLIA [id number] [address] [place] [address] WBC (Bld) [#/Vol] 7.80 10*3/uL Normal 3.70-11.00 [facility] Comment on above: Order Comment: Speci men Type: BLOOD SPECIMEN Ordering Facility: [facility] Address: [address] [place] [address] Performed By: #### U STEKQ #### [facility] CLIA [id number] [address] [place] [address] Comprehensive metabolic 2000 panelon 12-28-2023 Albumin [Mass/Vol] 4.8 g/dL Normal 3.9-4.9 [facility] Comment on above: Order Comment: Speci men Type: BLOOD SPECIMEN Ordering Facility: [facility] Address: [address] [place] [address] Performed By: #### 2 4323-8, 55929-1 #### [facility] CLIA [id number] [address] [place] [address] [place] ALP [Catalytic activity/Vol] 67 U/L Normal 38-113 [facility] Comment on above: Order Comment: Speci men Type: BLOOD SPECIMEN Ordering Facility: [facility] Address: [address] [place] [address] Performed By: #### 2 4323-8, 47560-8 #### [facility] CLIA [id number] [address] [place] [address] [place] ALT With P-5'-P [Catalytic activity/Vol] 22 U/L Normal 10-54 [facility] Comment on above: Order Comment: Speci men Type: BLOOD SPECIMEN Ordering Facility: [facility] Address: [address] [place] [address] Performed By: #### 2 4323-8, 92983-3 #### [facility] CLIA [id number] [address] [place] [address] [place] Anion gap [Moles/Vol] 8 mmol/L Normal 8-15 [facility] Comment on above: Order Comment: Speci men Type: BLOOD SPECIMEN Ordering Facility: [facility] Address: [address] [place] [address] Performed By: #### 2 4323-8, 74199-4 #### [facility] CLIA [id number] [address] [place] [address] [place] AST With P-5'-P [Catalytic activity/Vol] 28 U/L Normal 14-40 [facility] Comment on above: Order Comment: Speci men Type: BLOOD SPECIMEN Ordering Facility: [facility] Address: [address] [place] [address] Performed By: #### 2 4323-8, 67644-3 #### [facility] CLIA [id number] [address] [place] [address] [place] Bilirubin [Mass/Vol] 0.7 mg/dL Normal 0.2-1.3 [facility] Comment on above: Order Comment: Speci men Type: BLOOD SPECIMEN Ordering Facility: [facility] Address: [address] [place] [address] Performed By: #### 2 4323-8, 42435-9 #### [facility] CLIA [id number] [address] [place] [address] [place] Calcium [Mass/Vol] 9.9 mg/dL Normal 8.5-10.2 [facility] Comment on above: Order Comment: Speci men Type: BLOOD SPECIMEN Ordering Facility: [facility] Address: [address] [place] [address] Performed By: #### 2 4323-8, 82505-4 #### [facility] CLIA [id number] [address] [place] [address] [place] Chloride [Moles/Vol] 104 mmol/L Normal 98-107 [facility] Comment on above: Order Comment: Speci men Type: BLOOD SPECIMEN Ordering Facility: [facility] Address: [address] [place] [address] Performed By: #### 2 4323-8, 88536-8 #### [facility] CLIA [id number] [address] [place] [address] [place] CO2 [Moles/Vol] 28 mmol/L Normal 22-30 [facility] Comment on above: Order Comment: Speci men Type: BLOOD SPECIMEN Ordering Facility: [facility] Address: [address] [place] [address] Performed By: #### 2 4323-8, 82743-0 #### [facility] CLIA [id number] [address] [place], [place] [id number] [place] [facility] Creatinine [Mass/Vol] 1.01 mg/dL Normal 0.73-1.22 [facility] Comment on above: Order Comment: Cat anderson Type: BLOOD SPECIMEN Ordering Facility: [facility] Address: [address] [place] [address] Performed By: #### 2 4323-8, 28331-4 #### [facility] CLIA [id number] [address] [place], [place] [id number] [facility] Creatinine and Glomerular filtration rate.predicted panel (S/P/Bld) 107 mL/min/1.73m??? Normal >=60 [facility] Comment on above: Order Comment: Cat anderson Type: BLOOD SPECIMEN Ordering Facility: [facility] Address: [address] [place] [address] Result Comment: Pamela mated Glomerular Filtration Rate (eGFR) is calculated using the 2020 CKD-EPI creatinine equation. This equation utilizes serum creatinine, sex, and age as parameters. The creatinine assay has traceable calibration to isotope dilution-mass spectrometry. Refer to KDIGO guidelines for clinical interpretation. In patients with unstable renal function, e.g. those with acute kidney injury, the eGFR may not accurately reflect actual GFR. Performed By: #### 2 4323-8, 69114-4 #### [facility] CLIA [id number] [address] [place], [place] [id number] [place] Glucose [Mass/Vol] 85 mg/dL Normal 74-99 [facility] Comment on above: Order Comment: Cat anderson Type: BLOOD SPECIMEN Ordering Facility: [facility] Address: [address] [place] [address] Result Comment: The [place] Diabetes Association (ADA) provides guidance for cutoff values for fasting glucose and random glucose. The ADA defines fasting as no caloric intake for at least 8 hours. Fasting plasma glucose results between 100 to 125 mg/dL indicate increased risk for diabetes (prediabetes). Fasting plasma glucose results greater than or equal to 126 mg/dL meet the criteria for diagnosis of diabetes. In the absence of unequivocal hyperglycemia, results should be confirmed by repeat testing. In a patient with classic symptoms of hyperglycemia or hyperglycemic crisis, random plasma glucose results greater than or equal to 200 mg/dL meet the criteria for diagnosis of diabetes. Reference: Standards of Medical Care in Diabetes 2016, [place] Diabetes Association. Diabetes Care. 2016.39(Suppl 1). Performed By: #### 2 4323-8, 51758-3 #### [facility] CLIA [id number] [address] [place] [address] [place] Potassium [Moles/Vol] 3.9 mmol/L Normal 3.7-5.1 [facility] Comment on above: Order Comment: Cat anderson Type: BLOOD SPECIMEN Ordering Facility: [facility] Address: [address] [place] [address] Performed By: #### 2 43238, 02357-1 #### [facility] CLIA [id number] [address] [place] [address] [place] Protein [Mass/Vol] 7.4 g/dL Normal 6.3-8.0 [facility] Comment on above: Order Comment: Cat anderson Type: BLOOD SPECIMEN Ordering Facility: [facility] Address: [address] [place] [address] Performed By: #### 2 4323-8, #### [facility] CLIA [id number] [address] [place] [address] [place] Sodium [Moles/Vol] 140 mmol/L Normal 136-144 [facility] Comment on above: Order Comment: Cat anderson Type: BLOOD SPECIMEN Ordering Facility: [facility] Address: [address] [place] [address] Performed By: #### 2 43238, 32540-7 #### [facility] CLIA [id number] [address] [place] [address] [place] Urea nitrogen [Mass/Vol] 14 mg/dL Normal 9-24 [facility] Comment on above: Order Comment: Cat anderson Type: BLOOD SPECIMEN Ordering Facility: [facility] Address: [address] [place] [address] Performed By: #### 2 4323-8, 93704-9 #### [facility] CLIA [id number] [address] [place] [address] [place] ESR Westergren method (Bld) [Velocity]on 12-28-2023 ESR (Bld) [Velocity] 2 mm/h Normal 0-15 [facility] Comment on above: Order Comment: Cat [facility] Type: BLOOD SPECIMEN Ordering Facility: [facility] Address: [address] [place] [address] Performed By: #### U STEKQ #### [facility] CLIA [id number] [address] [place] [address] HBV core Ab Ser Qlon 024 HBV core Ab Ql (S) Negative Normal Negative [facility] Comment on above: Order Comment: Cat [facility] Type: BLOOD SPECIMEN Ordering Facility: [facility] Address: [address] [place] [address] Result Comment: No e vidence of current or past infection with Hepatitis B virus. Should recent infection be suspected, repeat testing may be considered 3-4 weeks after this draw. Performed By: #### 5 195-3 #### [facility] CLIA [id number] [address] [facility] HBV surface Ab Ql (S)on HBV surface Ab Qn (S) 3.50 mIU/mL Normal [facility] Comment on above: Order Comment: Cat [facility] Type: BLOOD SPECIMEN Ordering Facility: [facility] Address: [address] [place] [address] Result Comment: <8.5 mIU/mL: No serological evidence of immunity to Hepatitis B Virus. >/= 8.5 to <11.5 mIU/mL: No serological evidence of immunity to Hepatitis B Virus. >/= 11.5 mIU/mL: Consistent with serological evidence of immunity to Hepatitis B Virus. Performed By: #### U STEKQ #### [facility] CLIA [id number] [address] [place] [address] HBV surface Ab Ser Qlon HBV surface Ab Ql (S) Negative Normal [facility] Comment on above: Order Comment: Cat anderson Type: BLOOD SPECIMEN Ordering Facility: [facility] Address: [address] [place] [address] Result Comment: No s erological evidence of immunity to Hepatitis B Virus. Performed By: #### U STEKQ #### [facility] CLIA [id number] [address] [place] [address] HBV surface Ag Ser Qlon HBV surface Ag Ql (S) Non-Reactive Normal Nonreactive [facility] Comment on above: Order Comment: Cat anderson Type: BLOOD SPECIMEN Ordering Facility: [facility] Address: [address] [place] [address] Performed By: #### 5 195-3 #### [facility] CLIA [id number] [address] [place] [address] [place] Lipid 1996 panelon 4 Cholesterol [Mass/Vol] 160 mg/dL Normal <200 [facility] Comment on above: Order Comment: Cat anderson Type: BLOOD SPECIMEN Ordering Facility: [facility] Address: [address] [place] [address] Result Comment: <200 mg/dL, Desirable 200-239 mg/dL, Borderline high >239 mg/dL, High Performed By: #### 2 4323-8, 71428-4 #### [facility] CLIA [id number] [address] [place] [address] [place] [facility] Cholesterol in HDL [Mass/Vol] 79 mg/dL Normal >39 [facility] Comment on above: Order Comment: Cat anderson Type: BLOOD SPECIMEN Ordering Facility: [facility] Address: [address] [place] [address] Result Comment: 40-5 9 mg/dL, Acceptable >59 mg/dL, High: Negative risk factor for coronary heart disease <40 mg/dL, Low: Positive risk factor for coronary heart disease Performed By: #### 2 4323-8, #### [facility] CLIA [id number] [address] [place] [address] [place] Cholesterol in LDL [Mass/Vol] 67 mg/dL Normal <100 [facility] Comment on above: Order Comment: Cat anderson Type: BLOOD SPECIMEN Ordering Facility: [facility] Address: [address] [place] [address] Result Comment: <100 mg/dL, Optimal 100-129 mg/dL, Near optimal/above optimal 130-159 mg/dL, Borderline high 160-189 mg/dL, High >189 mg/dL, Very high Secondary prevention optimal LDL Cholesterol levels are recommended to be < 70 mg/dL Performed By: #### 2 4323-8, #### [facility] CLIA [id number] [address] [place] [address] [facility] Cholesterol in LDL/Cholesterol in HDL [Mass ratio] 0.85 {ratio} Normal <2.54 [facility] Comment on above: Order Comment: Cat anderson Type: BLOOD SPECIMEN Ordering Facility: [facility] Address: [address] [place] [address] Result Comment: Refe winston: 1. National Cholesterol Education Program ATP III Guideline At-A-Glance Quick Desk Reference: National Heart, Lung, and Blood Cisco. National Institutes of Health. 2001: NIH Publication No. 01-3305. 2. An International Atherosclerosis Society position paper: global recommendations for the management of dyslipidemia: executive summary, Atherosclerosis. 2014: 232(2):410-413. Cut Points from the Lipid Research Clinic's Prevalence Study for ages 20 to 24 years can be located in the following reference: Expert Panel on Integrated Guidelines for Cardiovascular Health and Risk Reduction in Children and Adolescents: National Heart, Lung and Blood Cisco. Pediatrics. 2011:128(Suppl 5):S547-456. Performed By: #### 2 4323-8, #### [facility] CLIA [id number] [address] [place] [address] [facility] [place] Cholesterol in VLDL [Mass/Vol] 14 mg/dL Normal <30 [facility] Comment on above: Order Comment: Speci men Type: BLOOD SPECIMEN Ordering Facility: [facility] Address: [address] [place] [address] Performed By: #### 2 4323-8, 25552-9 #### [facility] CLIA [id number] [address] [place] [address] [place] Cholesterol non HDL [Mass/Vol] 81 mg/dL Normal <130 [facility] Comment on above: Order Comment: Speci men Type: BLOOD SPECIMEN Ordering Facility: [facility] Address: [address] [place] [address] Result Comment: <130 mg/dL, Optimal 130-159 mg/dL, Near optimal/above optimal 160-189 mg/dL, Borderline high 190-219 mg/dL, High >219 mg/dL, Very high Secondary prevention optimal non HDL Cholesterol levels are recommended to be <100 mg/dL Performed By: #### 2 4323-8, 99851-4 #### [facility] CLIA [id number] [address] [place] [address] [place] Cholesterol.total/Cho lesterol in HDL [Mass ratio] 2.03 {ratio} Normal <5.10 [facility] Comment on above: Order Comment: Speci men Type: BLOOD SPECIMEN Ordering Facility: [facility] Address: [address] [place] [address] Performed By: #### 2 4323-8, 07239-7 #### [facility] CLIA [id number] [address] [place] [address] [place] FASTING TIME 12 hrs Normal [facility] Comment on above: Order Comment: Speci men Type: BLOOD SPECIMEN Ordering Facility: [facility] Address: [address] [place] [address] Performed By: #### 2 4323-8, 60307-9 #### [facility] CLIA [id number] [address] [place] [address] [place] Triglyceride [Mass/Vol] 71 mg/dL Normal <150 [facility] Comment on above: Order Comment: Speci men Type: BLOOD SPECIMEN Ordering Facility: [facility] Address: [address] [place] [address] [address], [place] [address] Result Comment: <150 mg/dL, Normal 150-199 mg/dL, Borderline high 200-499 mg/dL, High >499 mg/dL, Very high Performed By: #### 2 4323-8, 82070-8 #### [facility] CLIA [id number] [address] [place] [id number] [place] [address] OF [facility] CNCOon 12-22-2023 CNCO Letter Text Normal [facility] CNOVon 12-13-2023 CNOV Office Visit (AGFAMP LE) MC RICE ([id number]) 1 M Date Time Provider Department 12/13/23 9:20 AM NICK OLSON During your visit today, we recorded the following information about you: Temperature Pulse Blood pressure Weight 98.3 degrees 103/minute 128/74 83.9 kg Height 1.854 m Nick Olson APRN.[facility] 12/22/2023 5:44 PM Addendum Subjective Mc Mayer Hamzah is a 23 year old male here today for well adult exam. I reviewed past medical, surgical, social, and family histories today and updated chart. Allergies, chronic medications, and supplements were also reviewed. Allergies Associated symptoms include abdominal pain, arthralgias, joint swelling, nausea and vomiting. Pertinent negatives include no chest pain, chills, congestion, coughing, fatigue, fever, headaches, rash, sore throat or weakness. Doing pretty good overall Feels he has developed allergies over the last year or so Stuffy nose, watery eyes, sneeze, itchy nose not often - during the spring/fall seasons Hx rheumatoid arthritis, inflammatory bowel disease/colitis Specialists will see him till age 26 Getting flare ups occasionally - diarrhea, abdominal pain, nausea Will take phenergan as needed for nausea/vomiting Just started Xeljanz - hoping it helps both issues, targeted towards arthritis PAST MEDICAL HISTORY Diagnosis Date Colitis Contusion of left ankle 10/24/1015 Ganglion cyst of wrist 10/27/2011 Localized swelling, mass and lump, left lower limb Obesity Pain in left ankle and joints of left foot Rheumatoid arthritis(714.0) PAST SURGICAL HISTORY Procedure Laterality Date COLONOSCOPY 12/22/2018 lymphocytic colitis PAST SURGICAL HISTORY OF cyst lt wrist- debridment RA PAST SURGICAL HISTORY OF Left shoulder surgery WRIST rt wrist fractured Jan 2012 ORIF ALLERGIES Patient has no known allergies. MEDICATIONS XELJANZ 5 mg tablet Take 5 mg by mouth. ustekinumab (STELARA) 90 mg/mL injection Inject 90 mg subcutaneously. promethazine (PHENERGAN) 12.5 mg tablet Take 12.5 mg by mouth every 6 hours as needed for Nausea/Vomiting. mesalamine ER (APRISO) 0.375 gram capsule Take 1.5 g by mouth. Take 1.5 g by mouth. omeprazole (PRILOSEC) 20 mg capsule Take 1 capsule by mouth once daily. nabumetone (RELAFEN) 500 mg tablet Take 2 Tablets (1,000 mg) by mouth daily celecoxib (CELEBREX) 100 mg capsule TAKE 1 CAPSULE BY MOUTH TWICE DAILY (Patient not taking: Reported on 12/13/2023) adalimumab (HUMIRA) 40 mg/0.8 mL injection Inject 160 mg subcutaneously one time only. Initial Dose, Pending Prior Authorization Approval. (Patient not taking: Reported on 12/13/2023) lactose-reduced food (ENSURE ORAL) Take 8 oz by mouth twice daily. (Patient not taking: Reported on 12/13/2023) riTUXimab (RITUXAN) 10 mg/mL injection Inject intravenously. Inject every 6 months (Patient not taking: Reported on 12/13/2023) diclofenac sodium (VOLTAREN) 1 % topical gel Apply a small amount to affect joint three times a day as needed for pain (Patient not taking: Reported on 12/13/2023) diclofenac XR (VOLTAREN-XR) 100 mg Tb24 Take 100 mg by mouth twice daily. (Patient not taking: Reported on 12/13/2023) FAMILY HISTORY Problem Relation Age of Onset COPD Maternal Grandmother Lipids Maternal Grandmother COPD Maternal Grandfather GI Mother Hypertension Mother Social History Tobacco Use Smoking status: Never Smokeless tobacco: Never Vaping Use Vaping Use: Never used Substance Use Topics Alcohol use: No Comment: Non-drinker Drug use: No Comment: No reported history Review of Systems Constitutional: Negative for appetite change, chills, fatigue, fever and unexpected weight change. HENT: Negative for congestion, ear pain, rhinorrhea and sore throat. Eyes: Negative for pain, discharge, itching and visual disturbance. Respiratory: Negative for cough, shortness of breath and wheezing. About a month ago had a cough Cardiovascular: Negative for chest pain, palpitations and leg swelling. Gastrointestinal: Positive for abdominal pain, diarrhea, nausea and vomiting. Negative for constipation. Genitourinary: Negative for difficulty urinating. Musculoskeletal: Positive for arthralgias and joint swelling. Left wrist, left shoulder, right elbow - the worst spots Gets injections with interventional radiology Skin: Negative for rash. Neurological: Negative for dizziness, tremors, weakness and headaches. Psychiatric/Behavioral: Positive for sleep disturbance (disrupted from chronic pain). Negative for dysphoric mood. The patient is not nervous/anxious. Objective BP 128/74 Pulse 103 Temp 98.3 Ht 6' 1" (1.85m) Wt 185 lb (83.9kg) SpO2 98% BMI 24.41 kg/(m2). Physical Exam Constitutional: Appearance: Normal appearance. He is well-developed. HENT: Head: Normocephalic and atraumatic. Rig (more content not included)... 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 male with a PMH significant for SHAWNEE followed in Pediatric GI clinic for abdominal pain, diarrhea and IBD-indeterminant colitis. He has also struggled with appetite and weight loss in the past. The patient underwent EGD and colonoscopy in 03/2019 which showed chronic active colitis from the transverse colon to the rectum, as well as focally enhanced gastritis. An MRI at that time continued to show inflammation in the sigmoid and ileum. He was maintained on Humira, but was changed to Stelara in 01/2020 due to persistent symptoms despite adequate levels. The diarrhea, decreased appetite and abdominal pain have improved with this medication and the last level was adequate. He continues to take the Stelara every 5 weeks. More recently he has experienced increased joint pain/inflammation. The patient was started on Xeljanz in addition to the Stelara on November 23, 2023. He seems to be tolerating the Xeljanz well thus far. Worrisome signs and symptoms explained and the family expressed good understanding. Plan We made the following plan with the family today which was reviewed in detail during the visit: 1) Continue Stelara every 5 weeks -We will monitor to determine if there is improvement in his GI symptoms with starting the Xeljanz 2) Continue the daily multi-vitamin 3) repeat laboratory test at the end of November 2023. 4) Continue the Prilosec and Apriso daily -Use the Phenergan as needed -We will consider weaning the Prilosec at the next visit 5) The patient is due for the next EGD + colonoscopy in 2026 5) Please call the office if the gastrointestinal symptoms worsen ([phone]) Thank you for allowing our participation in your child's care. Please feel free to call should you have any urgent questions or concerns. Should you choose to participate in [employer] messaging, please be aware it may take 2-3 business days to return your message. No orders of the defined types were placed in this encounter. Requested Prescriptions No prescriptions requested or ordered in this encounter Return in about 3 months (around 03/01/2024). An After Visit Summary was provided to the family at completion of the visit. Approximately 25 minutes were spent with the patient. More than 50% of this time was spent in counseling and coordination of care. Madison Yo MD Pediatric Gastroenterology History of Present Illness This is a telemedicine video visit requested by the patient/guardian that was performed at the patient's location (at home) and the provider's location (office). Mc Rice is a 23 y.o. male with a PMH significant for SHAWNEE followed in the Pediatric GI Clinic for abdominal pain, diarrhea and IBD-indeterminant colitis. At the time of the initial visit the family reported that GI symptoms were present for 6 months. The patient was experiencing diffuse abdominal pain, vomiting and diarrhea. The patient lost 40 lbs. The patient was seen by [facility]. A colonoscopy was performed on 01/09/2019 - consistent with lymphocytic colitis. The patient was started on Budesonide 9 mg daily. The EGD and colonoscopy were repeated in 03/2019 and showed chronic active colitis from the transverse colon to the rectum, as well as focally enhanced gastritis. The patient was started on Humira. A repeat EGD and colonoscopy were performed in 10/2019 and showed chronic active colitis throughout the colon and focally enhanced gastritis. Humira was discontinued and the patient was started on Stelara on 01/29/2020. A Stelara level was sent in 09/2022 and was above 10 with no antibodies present. Today the patient returns for follow-up. He currently receives Stelara 90 mg SQ q5 weeks. His next dose is due on December 13, 2023. He is also taking Apriso 2 tabs BID, Prilosec 20 mg daily and Phenergan prn. The patient has experienced increased joint symptoms including right elbow pain, left wrist pain and left shoulder pain. He recently had a steroid injection in the right elbow and started Xeljanz twice daily on November 23, 2023. The patient has not noticed any side effects since starting the Xeljanz including GI side effects such as nausea vomiting. The patient reports that he does have abdominal pain on a daily basis. This pain is described as mild, but every few months he will have worsening pain with di (more content not included)... Normal [facility] Guidance for injection of Sp ine epidural spaceon 11-01-2023 IMPRESSION: 1. Technically successful, fluoroscopic-guided, right elbow steroid injection. 2. Interval reduction of joint pain following injection local anesthetic. This report has been created using voice recognition software [facility] Kyra Parrish MD - 11/01/2023 PROCEDURE: Intra-articular steroid injection, fluoroscopic-guided. CLINICAL HISTORY: 23-year-old male with SHAWNEE and right elbow pain. Good response to prior steroid injections. Steroid injection requested for symptomatic pain relief and to decrease inflammation. Patient reports a preprocedure pain of a 4-5. COMPARISON: Prior joint injection 08/31/2022 TECHNICAL DETAILS: Interventional Radiologist: Kyra Parrish M.D. Sedation: None. Contrast: 0.5 mL Isovue-300. Fluoroscopy time: 0.1 minutes. Estimated radiation dose: 0.1 mGy Dose area product: 0.53 microGy-cm^2 Equipment: 22 gauge, 1.5 inch spinal needle. PROCEDURE/FINDINGS: Informed consent was obtained from the patient, which included an explanation of procedure details, risks, benefits, and alternative options. The patient was then positioned supine. A preprocedure timeout was performed. The skin overlying the right elbow joint was prepped and draped in sterile fashion. Buffered 1% lidocaine was administered for local anesthetic. Under fluoroscopic guidance, the needle was directed into the joint. A small amount of contrast was injected, confirming intra-articular location of the needle tip. After which, a total of 40 mg Kenalog and 1 ml 0.5% bupivacaine were injected into the joint space. The patient tolerated the procedure well and no immediate complications were encountered. On a pain scale of 0 through 10, the patient reports maximum pain during the procedure as a 7. Pain level at the end of the procedure was reported as a 2-3. IMPRESSION: 1. Technically successful, fluoroscopic-guided, right elbow steroid injection. 2. Interval reduction of joint pain following injection local anesthetic. This report has been created using voice recognition software [facility] Rad[facility] Study observation (narrative) [facility] Guidance for injection of Sp ine epidural spaceOrdered By: Kyra Parrish on 11-01-2023 [facility] Work Phone: [employer] TB GOLDon 2023 Mitogen minus NIL >9.95 Normal [facility] Comment on above: Order Comment: Relea se to patient->Automatic Performed By: #### 2 100 #### VANNA Quintana ([id number]) [facility]) [address] Quantiferon TB Gold Negative Normal Negative [facility] Comment on above: Order Comment: Relea se to patient->Automatic Performed By: #### 2 100 #### VANNA LETTY W ([id number]) [employer] [facility] ([place]ER) [place] [address] [place] TB1 minus NIL 0.00 IU/mL Normal -0.50-0.34 [facility] Comment on above: Order Comment: Relea se to patient->Automatic Performed By: #### 2 100 #### VANNA [employer] W ([id number]) [facility] ONE [place] [address] [place] TB2 minus NIL 0.02 IU/mL Normal -0.50-0.34 [facility] Comment on above: Order Comment: Relea se to patient->Automatic Performed By: #### 2 100 #### [employer] W ([id number]) [facility] ([email or web address]) [place], [place] [id number] [place] [address] 25([place])D3 [facility] 25-hydroxyvitamin D3 [Mass/Vol] 43.6 ng/mL Normal >=30.0 [facility] Comment on above: Order Comment: Speci men Type: BLOOD SPECIMEN Ordering Facility: [facility] Address: [address] [place] [address] Result Comment: Clas sification of 25 [place] Vitamin D status: Deficiency: <= 20.0 ng/ml. Insufficiency: 21.0-29.0 ng/ml. Sufficiency: >= 30.0 ng/ml. Performed By: #### 1 989-3 #### [facility] CLIA [id number] [address] [place] [address] CBC W Auto Differential pane l (Bld)on 10-20-2023 Basophils (Bld) [#/Vol] 0.04 10*3/uL Normal <0.11 [facility] Comment on above: Order Comment: Speci men Type: BLOOD SPECIMEN Ordering Facility: [facility] Address: [address] [place] [address] Performed By: #### U STEKQ #### [facility] CLIA [id number] [address] [place] [address] Basophils/100 WBC (Bld) 0.5 % Normal [facility] Comment on above: Order Comment: Speci men Type: BLOOD SPECIMEN Ordering Facility: [facility] Address: [address] [place] [address] Performed By: #### U STEKQ #### [facility] CLIA [id number] [address] [place] [address] Differential cell count method Nom (Bld) Auto Normal [facility] Comment on above: Order Comment: Speci men Type: BLOOD SPECIMEN Ordering Facility: [facility] Address: [address] [place] [address] Performed By: #### U STEKQ #### [facility] CLIA [id number] [address] [place] [address] Eosinophils (Bld) [#/Vol] 0.15 10*3/uL Normal <0.46 [facility] Comment on above: Order Comment: Speci men Type: BLOOD SPECIMEN Ordering Facility: [facility] Address: [address] [place] [address] Performed By: #### U STEKQ #### [facility] CLIA [id number] [address] [place] [address] Eosinophils/100 WBC (Bld) 2.0 % Normal [facility] Comment on above: Order Comment: Speci men Type: BLOOD SPECIMEN Ordering Facility: [facility] Address: [address] [place] [address] Performed By: #### U STEKQ #### [facility] CLIA [id number] [address] [place] [address] Erythrocyte distribution width (RBC) [Ratio] 12.5 % Normal 11.5-15.0 [facility] Comment on above: Order Comment: Speci men Type: BLOOD SPECIMEN Ordering Facility: [facility] Address: [address] [place] [address] Performed By: #### U STEKQ #### [facility] CLIA [id number] [address] [place] [address] Hematocrit (Bld) [Volume fraction] 49.7 % Normal 39.0-51.0 [facility] Comment on above: Order Comment: Speci men Type: BLOOD SPECIMEN Ordering Facility: [facility] Address: [address] [place] [address] Performed By: #### U STEKQ #### [facility] CLIA [id number] [address] [place] [address] Hemoglobin (Bld) [Mass/Vol] 16.2 g/dL Normal 13.0-17.0 [facility] Comment on above: Order Comment: Speci men Type: BLOOD SPECIMEN Ordering Facility: [facility] Address: [address] [place] [address] Performed By: #### U STEKQ #### [facility] CLIA [id number] [address] [place] [address] Immature granulocytes (Bld) [#/Vol] 10*3/uL Normal <0.10 [facility] Comment on above: Order Comment: Speci men Type: BLOOD SPECIMEN Ordering Facility: [facility] Address: [address] [place] [address] Performed By: #### U STEKQ #### [facility] CLIA [id number] [address] [place] [address] Immature granulocytes/100 WBC (Bld) 0.1 % Normal [facility] Comment on above: Order Comment: Speci men Type: BLOOD SPECIMEN Ordering Facility: [facility] Address: [address] [place] [address] Performed By: #### U STEKQ #### [facility] CLIA [id number] [address] [place] [address] Lymphocytes (Bld) [#/Vol] 2.88 10*3/uL Normal 1.00-4.00 [facility] Comment on above: Order Comment: Speci men Type: BLOOD SPECIMEN Ordering Facility: [facility] Address: [address] [place] [address] Performed By: #### U STEKQ #### [facility] CLIA [id number] [address] [place] [address] Lymphocytes/100 WBC (Bld) 38.6 % Normal [facility] Comment on above: Order Comment: Speci men Type: BLOOD SPECIMEN Ordering Facility: [facility] Address: [address] [place] [address] Performed By: #### U STEKQ #### [facility] CLIA [id number] [address] [place] [address] MCH (RBC) [Entitic mass] 30.1 pg Normal 26.0-34.0 [facility] Comment on above: Order Comment: Speci men Type: BLOOD SPECIMEN Ordering Facility: [facility] Address: [address] [place] [address] Performed By: #### U STEKQ #### [facility] CLIA [id number] [address] [place] [address] MCHC (RBC) [Mass/Vol] 32.6 g/dL Normal 30.5-36.0 [facility] Comment on above: Order Comment: Speci men Type: BLOOD SPECIMEN Ordering Facility: [facility] Address: [address] [place] [address] Performed By: #### U STEKQ #### [facility] CLIA [id number] [address] [place] [address] MCV (RBC) [Entitic vol] 92.4 fL Normal 80.0-100.0 [facility] Comment on above: Order Comment: Speci men Type: BLOOD SPECIMEN Ordering Facility: [facility] Address: [address] [place] [address] Performed By: #### U STEKQ #### [facility] CLIA [id number] [address] [place] [address] Monocytes (Bld) [#/Vol] 0.55 10*3/uL Normal <0.87 [facility] Comment on above: Order Comment: Speci men Type: BLOOD SPECIMEN Ordering Facility: [facility] Address: [address] [place] [address] Performed By: #### U STEKQ #### [facility] CLIA [id number] [address] [place] [address] Monocytes/100 WBC (Bld) 7.4 % Normal [facility] Comment on above: Order Comment: Speci men Type: BLOOD SPECIMEN Ordering Facility: [facility] Address: [address] [place] [address] Performed By: #### U STEKQ #### [facility] CLIA [id number] [address] [place] [address] Neutrophils (Bld) [#/Vol] 3.84 10*3/uL Normal 1.45-7.50 [facility] Comment on above: Order Comment: Speci men Type: BLOOD SPECIMEN Ordering Facility: [facility] Address: [address] [place] [address] Performed By: #### U STEKQ #### [facility] CLIA [id number] [address] [place] [address] Neutrophils/100 WBC (Bld) 51.4 % Normal [facility] Comment on above: Order Comment: Speci men Type: BLOOD SPECIMEN Ordering Facility: [facility] Address: [address] [place] [address] Performed By: #### U STEKQ #### [facility] CLIA [id number] [address] [place] [address] Nucleated RBC (Bld) [#/Vol] Normal [facility] Comment on above: Order Comment: Speci men Type: BLOOD SPECIMEN Ordering Facility: [facility] Address: [address] [place] [address] Performed By: #### U STEKQ #### [facility] CLIA [id number] [address] [place] [address] Nucleated RBC/100 WBC (Bld) [Ratio] Normal [facility] Comment on above: Order Comment: Speci men Type: BLOOD SPECIMEN Ordering Facility: [facility] Address: [address] [place] [address] Performed By: #### U STEKQ #### [facility] CLIA [id number] [address] [place] [address] Platelet mean volume (Bld) [Entitic vol] 9.1 fL Normal 9.0-12.7 [facility] Comment on above: Order Comment: Speci men Type: BLOOD SPECIMEN Ordering Facility: [facility] Address: [address] [place] [address] Performed By: #### U STEKQ #### [facility] CLIA [id number] [address] [place] [address] Platelets (Bld) [#/Vol] 218 10*3/uL Normal 150-400 [facility] Comment on above: Order Comment: Speci men Type: BLOOD SPECIMEN Ordering Facility: [facility] Address: [address] [place] [address] Performed By: #### U STEKQ #### [facility] CLIA [id number] [address] [place] [address] RBC (Bld) [#/Vol] 5.38 10*6/uL Normal 4.20-6.00 [facility] Comment on above: Order Comment: Speci men Type: BLOOD SPECIMEN Ordering Facility: [facility] Address: [address] [place] [address] Performed By: #### U STEKQ #### [facility] CLIA [id number] [address] [place] [address] WBC (Bld) [#/Vol] 7.47 10*3/uL Normal 3.70-11.00 [facility] Comment on above: Order Comment: Speci men Type: BLOOD SPECIMEN Ordering Facility: [facility] Address: [address] [place] [address] Performed By: #### U STEKQ #### [facility] CLIA [id number] [address] [place] [address] Comprehensive metabolic 2000 panelon 10-20-2023 Albumin [Mass/Vol] 4.6 g/dL Normal 3.9-4.9 [facility] Comment on above: Order Comment: Speci men Type: BLOOD SPECIMEN Ordering Facility: [facility] Address: [address] [place] [address] Performed By: #### 2 4323-8 #### [facility] CLIA [id number] [address] [place] [address] [place] [facility] ALP [Catalytic activity/Vol] 66 U/L Normal 38-113 [facility] Comment on above: Order Comment: Speci men Type: BLOOD SPECIMEN Ordering Facility: [facility] Address: [address] [place] [address] Performed By: #### 2 4323-8 #### [facility] CLIA [id number] [address] [place] [address] [place] ALT With P-5'-P [Catalytic activity/Vol] 15 U/L Normal 10-54 [facility] Comment on above: Order Comment: Speci men Type: BLOOD SPECIMEN Ordering Facility: [facility] Address: [address] [place] [address] Performed By: #### 2 4323-8 #### [facility] CLIA [id number] [address] [place] [address] [place] Anion gap [Moles/Vol] 12 mmol/L Normal 9-18 [facility] Comment on above: Order Comment: Speci men Type: BLOOD SPECIMEN Ordering Facility: [facility] Address: [address] [place] [address] Performed By: #### 2 4323-8 #### [facility] CLIA [id number] [address] [place] [address] [place] AST With P-5'-P [Catalytic activity/Vol] 22 U/L Normal 14-40 [facility] Comment on above: Order Comment: Speci men Type: BLOOD SPECIMEN Ordering Facility: [facility] Address: [address] [place] [address] Performed By: #### 2 4323-8 #### [facility] CLIA [id number] [address] [place] [address] [place] Bilirubin [Mass/Vol] 0.6 mg/dL Normal 0.2-1.3 [facility] Comment on above: Order Comment: Speci men Type: BLOOD SPECIMEN Ordering Facility: [facility] Address: [address] [place] [address] Performed By: #### 2 4323-8 #### [facility] CLIA [id number] [address] [place] [address] [place] Calcium [Mass/Vol] 10.0 mg/dL Normal 8.5-10.2 [facility] Comment on above: Order Comment: Speci men Type: BLOOD SPECIMEN Ordering Facility: [facility] Address: [address] [place] [address] Performed By: #### 2 4323-8 #### [facility] CLIA [id number] [address] [place] [address] [place] Chloride [Moles/Vol] 103 mmol/L Normal 97-105 [facility] Comment on above: Order Comment: Speci men Type: BLOOD SPECIMEN Ordering Facility: [facility] Address: [address] [place] [address] Performed By: #### 2 4323-8 #### [facility] CLIA [id number] [address] [place] [address] [place] CO2 [Moles/Vol] 25 mmol/L Normal 22-30 [facility] Comment on above: Order Comment: Speci men Type: BLOOD SPECIMEN Ordering Facility: [facility] Address: [address] [place] [address] Performed By: #### 2 4323-8 #### [facility] CLIA [id number] [address] [place] [address] [place] Creatinine [Mass/Vol] 1.04 mg/dL Normal 0.73-1.22 [facility] Comment on above: Order Comment: Speci men Type: BLOOD SPECIMEN Ordering Facility: [facility] Address: [address] [place] [address] Performed By: #### 2 4323-8 #### [facility] CLIA [id number] [address] [place] [address] [place] Creatinine and Glomerular filtration rate.predicted panel (S/P/Bld) 103 mL/min/1.73m??? Normal >=60 [facility] Comment on above: Order Comment: Speci men Type: BLOOD SPECIMEN Ordering Facility: [facility] Address: [address] [place] [address] Result Comment: Pamela mated Glomerular Filtration Rate (eGFR) is calculated using the 2020 CKD-EPI creatinine equation. This equation utilizes serum creatinine, sex, and age as parameters. The creatinine assay has traceable calibration to isotope dilution-mass spectrometry. Refer to KDIGO guidelines for clinical interpretation. In patients with unstable renal function, e.g. those with acute kidney injury, the eGFR may not accurately reflect actual GFR. Performed By: #### 2 4323-8 #### [facility] CLIA [id number] [address] [place] [address] [place] Glucose [Mass/Vol] 87 mg/dL Normal 74-99 [facility] Comment on above: Order Comment: Speci justin Type: BLOOD SPECIMEN Ordering Facility: [facility] Address: [address] [place] [address] Result Comment: The [place] Diabetes [employer] (ADA) provides guidance for cutoff values for fasting glucose and random glucose. The ADA defines fasting as no caloric intake for at least 8 hours. Fasting plasma glucose results between 100 to 125 mg/dL indicate increased risk for diabetes (prediabetes). Fasting plasma glucose results greater than or equal to 126 mg/dL meet the criteria for diagnosis of diabetes. In the absence of unequivocal hyperglycemia, results should be confirmed by repeat testing. In a patient with classic symptoms of hyperglycemia or hyperglycemic crisis, random plasma glucose results greater than or equal to 200 mg/dL meet the criteria for diagnosis of diabetes. Reference: Standards of Medical Care in Diabetes 2016, [place] [employer]. Diabetes Care. 2016.39(Suppl 1). Performed By: #### 2 4323-8 #### [facility] CLIA [id number] [address] [place] [address] [place] Potassium [Moles/Vol] 3.9 mmol/L Normal 3.7-5.1 [facility] Comment on above: Order Comment: Cat anderson Type: BLOOD SPECIMEN Ordering Facility: [facility] Address: [address] [place] [address] Performed By: #### 2 4323-8 #### [facility] CLIA [id number] [address] [place] [address] [place] Protein [Mass/Vol] 7.7 g/dL Normal 6.3-8.0 [facility] Comment on above: Order Comment: Speci men Type: BLOOD SPECIMEN Ordering Facility: [facility] Address: [address] [place] [address] Performed By: #### 2 4323-8 #### [facility] CLIA [id number] [address] [place] [address] [place] Sodium [Moles/Vol] 140 mmol/L Normal 136-144 [facility] Comment on above: Order Comment: Speci men Type: BLOOD SPECIMEN Ordering Facility: [facility] Address: [address] [place] [address] Performed By: #### 2 4323-8 #### [facility] CLIA [id number] [address] [place] [address] [place] Urea nitrogen [Mass/Vol] 11 mg/dL Normal 9-24 [facility] Comment on above: Order Comment: Speci men Type: BLOOD SPECIMEN Ordering Facility: [facility] Address: [address] [place] [address] Performed By: #### 2 4323-8 #### [facility] CLIA [id number] [address] [place] [address] [place] ESR Westergren method (Bld) [Velocity]on 10-20-2023 ESR (Bld) [Velocity] 5 mm/h Normal 0-15 [facility] Comment on above: Order Comment: Speci men Type: BLOOD SPECIMEN Ordering Facility: [facility] Address: [address] [place] [address] Performed By: #### U STEKQ #### [facility] CLIA [id number] [address] [place] [address] US Abdomen RUQon 02-15-2023 IMPRESSION: Normal right upper quadrant ultrasound This report has been created using voice recognition software [facility] CLINICAL HISTORY: 22 yo male with IBD and elevated liver enzymes, eval liver and gallbladder TECHNIQUE: Sonographic evaluation of the abdominal right upper quadrant was performed. COMPARISON: None. FINDINGS: LIVER: Normal. GALLBLADDER: Normal. CBD: Normal. CBD diameter: 2 mm. PANCREAS: Visualized portions are normal. RIGHT KIDNEY: Normal. Right kidney length: 11.4 cm. [facility] Marie Nixon MD - 02/15/2023 CLINICAL HISTORY: 22 yo male with IBD and elevated liver enzymes, eval liver and gallbladder TECHNIQUE: Sonographic evaluation of the abdominal right upper quadrant was performed. COMPARISON: None. FINDINGS: LIVER: Normal. GALLBLADDER: Normal. CBD: Normal. CBD diameter: 2 mm. PANCREAS: Visualized portions are normal. RIGHT KIDNEY: Normal. Right kidney length: 11.4 cm. IMPRESSION: Normal right upper quadrant ultrasound This report has been created using voice recognition software [facility] Study observation (narrative) [facility] US Abdomen RUQOrdered By: Beltran Celis on 02-15-2023 [facility] Work Phone: IR STEROID INJECTIONon 08-31 IMPRESSION: Technically successful, fluoroscopic-guided, left wrist and right elbow steroid injection for pain and inflammation control. This report has been created using voice recognition software [facility] Marie Nixon MD - 08/31/2022 PROCEDURE: Fluoroscopically guided intra-articular steroid. CLINICAL HISTORY: Left wrist and right elbow pain. [place]. COMPARISON: Right forearm MRI August 17, 2018 TECHNICAL DETAILS: Interventional Radiologist: Marie Celis MD Sedation: None. Contrast: 1 mL Isovue-300. Fluoroscopy time: 0.9 minutes. Estimated radiation dose: 0.1 mGy Dose area product: 1.3 cm microGy-cm^2 Equipment: 25 gauge butterfly needle and 25-gauge injection needle. PROCEDURE/FINDINGS: Informed consent was obtained from the patient, which included an explanation of procedure details, risks, benefits, and alternative options. The patient was then positioned supine. A preprocedure timeout was performed. The skin overlying the left wrist and right elbow joints were prepped and draped in sterile fashion. Buffered 1% lidocaine was administered for local anesthetic. Under fluoroscopic guidance, the needle was directed into the radiocarpal joint space. A small amount of contrast was injected, confirming intra-articular location of the needle tip. Subsequently, a total of 20 mg Kenalog followed by 1 cc of 0.5% bupivacaine was injected into the joint space. Utilizing the same butterfly needle, attention was then turned to the intercarpal joint space where a total of 20 mg of Kenalog followed by 1 cc of 0.5% bupivacaine was injected. Attention was then turned to the right elbow. Under fluoroscopic guidance, the needle was directed into the radioulnar joint space. A small amount of contrast was injected confirming intra-articular location of the needle tip. Subsequently, a total of 40 mg of Kenalog followed by 2 cc of 0.5% bupivacaine was injected into the joint space. The patient tolerated the procedure well and no immediate complications were encountered. IMPRESSION: Technically successful, fluoroscopic-guided, left wrist and right elbow steroid injection for pain and inflammation control. This report has been created using voice recognition software [facility] Study observation (narrative) [facility] IR STEROID INJECTIONOrdered By: Mraie Celis on 08-31-2022 [facility] Work Phone: Complete Blood Counton 11-13 Differential Complete Manual [facility] Erythrocyte distribution width (RBC) [Ratio] 12.6 % 0 - 14.4 % [facility] Hematocrit (Bld) [Volume fraction] 46.7 % 41 - 50 % [facility] Hemoglobin (Bld) [Mass/Vol] 16.1 g/dL 13.5 - 16.5 g/dl [facility] Immature granulocytes/100 WBC (Bld) 0.1 % [facility] Comment on above: Immature Granulocyte Percent includes promyelocytes, myelocytes, and metamyelocytes. IG% > 1.0 indicates a left shift is present. With automated differentials, bands are included in the neutrophil count and not in the Immature Granulocyte Percent. MCH (RBC) [Entitic mass] 30.1 pg 26 - 34 pg [facility] MCHC 34.5 % 31 - 37 % [facility] MCV (RBC) [Entitic vol] 87.3 fL 80 - 100 fl [facility] Nucleated RBC/100 WBC (Bld) [Ratio] 0 % -1 - 0 % [facility] Platelet mean volume (Bld) [Entitic vol] 8.5 fL [facility] Comment on above: MPV is platelet range and age dependent Platelets (Bld) [#/Vol] 264 10*3/uL [facility] RBC (Bld) [#/Vol] 5.35 10*6/uL [facility] WBC (Bld) [#/Vol] 7.2 10*3/uL [facility] Comprehensive metabolic pane ravi 11-13-2021 Albumin [Mass/Vol] 4.6 g/dL 3.5 - 5 g/dL [facility] ALP [Catalytic activity/Vol] 86 U/L 40 - 129 U/L [facility] ALT [Catalytic activity/Vol] 12 U/L 0 - 46 U/L [facility] AST [Catalytic activity/Vol] 26 U/L 0 - 37 U/L [facility] Bilirubin [Mass/Vol] 0.3 mg/dL 0 - 1 mg/dL [facility] Calcium [Mass/Vol] 9.4 mg/dL 7.6 - 11 mg/dL [facility] Chloride [Moles/Vol] 102 mmol/L 96 - 10 8 mmol/L [facility] CO2 [Moles/Vol] 24.9 mmol/L 22 - 29 mmol/L [facility] Creatinine [Mass/Vol] 1.04 mg/dL 0.7 - 1.2 mg/dL [facility] Glucose [Mass/Vol] 79 mg/dL 70 - 99 mg/dL [facility] Comment on above: Criteria for Diagnos is of Diabetes: Fasting Specimen (no caloric intake for at least 8 hours): <100 mg/dL Normal 100-125 mg/dL Increased risk for Diabetes >125 mg/dL Diagnostic for Diabetes Random Glucose (any time of day without regard to last meal): > or = 200 mg/dL plus Classic Symptoms of Diabetes Potassium [Moles/Vol] 3.9 mmol/L 3.3 - 5.1 mmol/L [facility] Protein [Mass/Vol] 7.8 g/dL 5.9 - 8.4 g/dL [facility] Sodium [Moles/Vol] 140 mmol/L 133 - 145 mmol/L [facility] Urea nitrogen [Mass/Vol] 9 mg/dL - 19 mg/dL [facility] Release to patient->Automatic [facility] IR JOINT INJECTIONon 022 IMPRESSION: Technically successful, fluoroscopic-guided right elbow steroid injection. Created by resident and approved This report has been created using voice recognition software [facility] Kyra Parrish MD - 11/13/2021 PROCEDURE: Right elbow steroid injection. 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 The patient reports a preprocedure baseline pain today of 3 out of 10 on a numeric pain scale. COMPARISON: Right forearm radiograph 08/11/2018. TECHNICAL DETAILS: Interventional Radiologist: Kyra Parrish MD Sedation: None. Contrast: 0.5 mL of Isovue-300 Fluoroscopy time: 0.1 minutes Estimated radiation dose: 0.1 mGy Dose area product: 1.12 microGy-m2 Equipment: 22 gauge, 1.5 inch spinal needle. PROCEDURE/FINDINGS: Informed consent was obtained from the patient, which included an explanation of procedure details, risks, benefits, and alternative options. After the patient was positioned on the table, a pre-procedure timeout was conducted. The right elbow was prepped and draped in sterile fashion. 1 ml of buffered 1% lidocaine was used to anesthetize the subcutaneous tissues. Under fluoroscopic guidance, the needle was directed into the joint. A small amount of Isovue-300 was injected, confirming intra-articular location of the needle. Special care was taken not to introduce air into the joint capsule. After which, a total of 20 mg triamcinolone hexacetonide and 2 ml 0.5% bupivacaine were injected into the joint space. The patient tolerated the procedure well and no immediate complications were encountered. On a pain scale of 0 through 10, the patient reports maximum pain during the procedure as a 4. Pain level at the end of the procedure was reported as a 0. The patient left the interventional suite in good condition. IMPRESSION: Technically successful, fluoroscopic-guided right elbow steroid injection. Created by resident and approved This report has been created using voice recognition software [facility] Radiology Study observation (narrative) [facility] IR JOINT INJECTIONOrdered By : Kyra Parrish on 11-13-2021 [facility] Work Phone: Manual Differentialon 2021 % Eosinophils 2 % 0 - 3 % [facility] % Metamyelocytes 0 % 0 - 0 % [facility] % Monocytes 7 % High 3 - 6 % [facility] % Myelocytes 0 % 0 - 0 % [facility] % Promyelocytes 0 % 0 - 0 % [facility] Absolute Neutrophil No. 4.9 [facility] Atypical Lymphocytes 1 % 0 - 8 % [facility] Band Neutrophil 0 % Low 5 - 11 % [facility] Cell Morphology Normal [facility] Interpretation and review of laboratory results Abnormal [facility] Lymphocytes 22 % Low 24 - 44 % [facility] Segmented Neutrophils 68 % High 35 - 66 % [facility] No Panel Informationon 11-13 Release to patient->Automatic [facility] Vitamin D 25 hydroxyon 11-13 25 [place] Vitamin D 17 ng/mL Low 30 - 100 ng/mL [facility] Comment on above: Reference ranges pro vided by [facility] Laboratory are based on Endocrine Society Guidelines: Level: Characterization <21 ng/mL: Vitamin D deficiency 21-29 ng/mL: Suboptimal Vitamin D status 30-100 ng/mL: Optimal Vitamin D status >100 ng/mL: Potentially toxic Vitamin D effects Interpretation and review of laboratory results Abnormal [facility] Release to patient->[facility]omatic [facility] CNNURSEon 10-21-2021 CNNURSE Nurse Visit (JERZY E) [facility] RICE ([id number]) 00 M Date Time Provider Department 10/21/21 9:20 AM NURSE LYNDA WINTERS During your visit today, we recorded the following information about you: Blood pressure 116/68 Nicole Florence MA 10/21/2021 7:16 AM Signed Immunizations were given as ordered. Vaccination information sheet(s) given. Nicole Florence MA Referring Provider: NICK OLSON [[id number]] Allergies As of Date: 10/21/2021 (No Known Allergies) Date Reviewed: 05/22/2020 Reviewed by: Nick Rjoo (Tank Storage Supervisor Hvac Service Tech) NANCY Olson - Fully Assessed Primary Visit Diagnosis:Encounter for immunization [Z23] Order(s):DataContact COVID-19 VACCINE, AGE 12+ YR ([place] TOP) [[id number]] Order #: [id number] Prescriptions as of 10/21/2021 - celecoxib (CELEBREX) 100 mg capsule TAKE 1 CAPSULE BY MOUTH TWICE DAILY - ustekinumab (STELARA) 90 mg/mL injection Inject 90 mg subcutaneously. - adalimumab (HUMIRA) 40 mg/0.8 mL injection Inject 160 mg subcutaneously one time only. Initial Dose, Pending Prior Authorization Approval. - promethazine (PHENERGAN) 12.5 mg tablet Take 12.5 mg by mouth every 6 hours as needed for Nausea/Vomiting. - lactose-reduced food (ENSURE ORAL) Take 8 oz by mouth twice daily. - mesalamine ER (APRISO) 0.375 gram capsule Take 1.5 g by mouth. Take 1.5 g by mouth. - omeprazole (PRILOSEC) 20 mg capsule Take 1 capsule by mouth once daily. - riTUXimab (RITUXAN) 10 mg/mL injection Inject intravenously. Inject every 6 months - diclofenac sodium (VOLTAREN) 1 % topical gel Apply a small amount to affect joint three times a day as needed for pain - diclofenac XR (VOLTAREN-XR) 100 mg Tb24 Take 100 mg by mouth twice daily. 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 Immunosuppressed status (HCC) [D84.9] 09/30/2011 06/07/2016 Ganglion cyst of wrist [M67.439] 10/27/2011 01/16/2015 Stiffness of wrist joint [M25.639] 12/03/2011 02/26/2016 Radius and ulna distal fracture [S52.509A, S52.*03/08/2012 01/16/2015 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 SHAWNEE (juvenile idiopathic arthritis), polyarthri*11/22/2014 Limitation of joint motion of wrist [M25.639] 11/22/2014 Unspecified disorder of immune mechanism (HCC) *11/22/2014 02/26/2016 Chronic midline low back pain without sciatica *12/11/2015 Impaired mobility and ADLs [Z74.09, Z78.9] 12/19/2015 Pain in both knees [M25.561, M25.562] 01/31/2016 Left shoulder pain [M25.512] 04/06/2016 Labral tear of shoulder [S43.439A] 04/06/2016 Dislocation, shoulder [S43.006A] 04/06/2016 Rheumatoid arthritis, unspecified (HCC) [M06.9] 04/20/2016 07/29/2017 Emmetropia [Z01.00] 09/02/2017 Normal eye and vision exam [Z01.00] 09/02/2017 Pain in left wrist [M25.532] 04/29/2018 Pain in right wrist [M25.531] 04/29/2018 Decreased activities of daily living (ADL) [Z78*04/29/2018 Finger pain, left [M79.645] 04/29/2018 Coordination abnormal [R27.8] 04/29/2018 Generalized abdominal pain [R10.84] 11/07/2018 Hematochezia [K92.1] 11/07/2018 Change in bowel habits [R19.4] 11/07/2018 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] 01/09/2019 Other hemorrhoids [K64.8] 01/09/2019 Regular astigmatism of both eyes [H52.223] 04/24/2019 Inflammatory bowel disease [K52.9] 08/21/2019 Visit Notes: >> CHERRY Carey Oct 21, 2021 9:20 AM Status: Signed Immunizations were given as ordered. Vaccination information sheet(s) given. Nicole Floernce MA Encounter Status:Closed by NICOLE FLORENCE on 10/21/21 [facility] 06-16-2021 DEAN Telephone (NICOLEFAMPLE) [facility] RICE ([id number]) 00 M Date Time Provider Department 06/16/21 NICK OLSON During your visit today, we recorded the following information about you: Nick Olson APRN.CNP 06/16/2021 8:42 AM Signed Dad has COVID. He is feeling very fatigued. COVID test ordered. Nick Olson APRN.CNP Allergies As of Date: 06/16/2021 (No Known Allergies) Date Reviewed: 05/22/2020 Reviewed by: Nick Rojo (Tank Storage Supervisor Nancy) NANCY Olson - Fully Assessed Reason for Visit: Orders [681] Cmt: COVID test Primary Visit Diagnosis:Exposure to COVID-19 virus [Z20.822] Other Visit Diagnosis:Fatigue, unspecified type [R53.83] Order(s):COVID WITH FLUA+B, ROUTINE [SQCOVFLU] Order #: [id number] FUTURE Prescriptions as of 06/16/2021 - celecoxib (CELEBREX) 100 mg capsule TAKE 1 CAPSULE BY MOUTH TWICE DAILY - ustekinumab (STELARA) 90 mg/mL injection Inject 90 mg subcutaneously. - adalimumab (HUMIRA) 40 mg/0.8 mL injection Inject 160 mg subcutaneously one time only. Initial Dose, Pending Prior Authorization Approval. - promethazine (PHENERGAN) 12.5 mg tablet Take 12.5 mg by mouth every 6 hours as needed for Nausea/Vomiting. - lactose-reduced food (ENSURE ORAL) Take 8 oz by mouth twice daily. - mesalamine ER (APRISO) 0.375 gram capsule Take 1.5 g by mouth. Take 1.5 g by mouth. - omeprazole (PRILOSEC) 20 mg capsule Take 1 capsule by mouth once daily. - riTUXimab (RITUXAN) 10 mg/mL injection Inject intravenously. Inject every 6 months - diclofenac sodium (VOLTAREN) 1 % topical gel Apply a small amount to affect joint three times a day as needed for pain - diclofenac XR (VOLTAREN-XR) 100 mg Tb24 Take 100 mg by mouth twice daily. 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 Immunosuppressed status (HCC) [D84.9] 09/30/2011 06/07/2016 Ganglion cyst of wrist [M67.439] 10/27/2011 01/16/2015 Stiffness of wrist joint [M25.639] 12/03/2011 02/26/2016 Radius and ulna distal fracture [S52.509A, S52.*03/08/2012 01/16/2015 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 SHAWNEE (juvenile idiopathic arthritis), polyarthri*11/22/2014 Limitation of joint motion of wrist [M25.639] 11/22/2014 Unspecified disorder of immune mechanism (HCC) *11/22/2014 02/26/2016 Chronic midline low back pain without sciatica *12/11/2015 Impaired mobility and ADLs [Z74.09, Z78.9] 12/19/2015 Pain in both knees [M25.561, M25.562] 01/31/2016 Left shoulder pain [M25.512] 04/06/2016 Labral tear of shoulder [S43.439A] 04/06/2016 Dislocation, shoulder [S43.006A] 04/06/2016 Rheumatoid arthritis, unspecified (HCC) [M06.9] 04/20/2016 07/29/2017 Emmetropia [Z01.00] 09/02/2017 Normal eye and vision exam [Z01.00] 09/02/2017 Pain in left wrist [M25.532] 04/29/2018 Pain in right wrist [M25.531] 04/29/2018 Decreased activities of daily living (ADL) [Z78*04/29/2018 Finger pain, left [M79.645] 04/29/2018 Coordination abnormal [R27.8] 04/29/2018 Generalized abdominal pain [R10.84] 11/07/2018 Hematochezia [K92.1] 11/07/2018 Change in bowel habits [R19.4] 11/07/2018 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] 01/09/2019 Other hemorrhoids [K64.8] 01/09/2019 Regular astigmatism of both eyes [H52.223] 04/24/2019 Inflammatory bowel disease [K52.9] 08/21/2019 Encounter Status:Closed by NICK OLSON on 06/16/21 Normal [facility] COVID w FLU A+B Routon 06-16 Influenza A PCR Negative Normal [facility] Comment on above: Performed By: #### C OVFLU #### [place] [id number] [place] [id number] Influenza B PCR Negative Normal [facility] Comment on above: Performed By: #### C OVFLU #### [place] [address] SARS-CoV-2 (COVID-19) RNA CINDY+probe Ql (Unsp spec) UPPER RESPIRATORY TRACT SWAB Normal [facility] Comment on above: Performed By: #### C OVFLU #### [place] [address] SARS-CoV-2 (COVID-19) RNA CINDY+probe Ql (Unsp spec) Positive for COVID19 (SARS CoV2) by RT-PCR or equivalent method. Critically abnormal Negative for COVID19 (SARS CoV2) by RT-PCR or equivalent method. [facility] Comment on above: Result Comment: This test was developed and its performance characteristics determined by [facility]. This test has been authorized by FDA under an Emergency Use Authorization (EUA). This test has been validated in accordance with the FDA's Guidance Document "Policy for Diagnostics Testing in Laboratories Certified to Perform High Complexity Testing under CLIA prior to Emergency use Authorization for Coronavirus Disease 2019 during the Public Health Emergency" issued on August 26, 2019. Test performed by [facility], [facility], [address] [place], [place] [address]. Performed By: #### C OVFLU #### [place] [id number] Comprehensive Panelon 2019 Albumin [Mass/Vol] 5.0 g/dL High 3.9-4.9 [facility] Comment on above: Performed By: #### L LP14 #### [address] [address] ALP [Catalytic activity/Vol] 62 U/L Normal 38-113 [facility] Comment on above: Performed By: #### L LP14 #### [facility] [address] [place] [address] ALT-SGPT Blood 18 U/L Normal 10-54 [facility] Comment on above: Performed By: #### L LP14 #### [facility] [address] [place] [address] Anion gap [Moles/Vol] 11 mmol/L Normal 9-[address] [facility] Comment on above: Performed By: #### L LP14 #### [facility] [address] [place] [address] AST-SGOT Blood 22 U/L Normal 14-40 [facility] Comment on above: Performed By: #### L LP14 #### [facility] [address] [place] [address] Bilirubin Ql (U) 0.4 mg/dL Normal 0.2-1.3 [facility] Comment on above: Performed By: #### L LP14 #### [facility] [address] [place] [address] Calcium [Mass/Vol] 10.2 mg/dL Normal 8.5-10.2 [facility] Comment on above: Performed By: #### L LP14 #### [facility] [address] [place] [address] Chloride [Moles/Vol] 100 mmol/L Normal 97-105 [facility] Comment on above: Performed By: #### L LP14 #### [facility] [address] [place] [address] CO2 Blood 25 mmol/L Normal 22-30 [facility] Comment on above: Performed By: #### L LP14 #### [facility] [address] [place] [address] Creatinine [Mass/Vol] 1.13 mg/dL Normal 0.73-1.[address] [facility] Comment on above: Performed By: #### L LP14 #### [facility] [address] [place] [address] Glucose [Mass/Vol] 97 mg/dL Normal 74-99 [facility] Comment on above: Result Comment: The [place] Diabetes Association (ADA) provides guidance for cutoff values for fasting glucose and random glucose. The ADA defines fasting as no caloric intake for at least 8 hours.Fasting plasma glucose results between 100 to 125 mg/dL indicate increased risk for diabetes (prediabetes). Fasting plasma glucose results greater than or equal to 126 mg/dL meet the criteria for diagnosis of diabetes. In the absence of unequivocal hyperglycemia, results should be confirmed by repeat testing. In a patient with classic symptoms of hyperglycemia or hyperglycemic crisis, random plasma glucose results greater than or equal to 200 mg/dL meet the criteria for diagnosis of diabetes. Reference: Standards of Medical Care in Diabetes 2016; [place] Diabetes Association. Diabetes Care. 2016;39(Suppl 1). Performed By: #### L LP14 #### [address] [address] Potassium [Moles/Vol] 4.1 mmol/L Normal 3.7-5.[address] [facility] Comment on above: Performed By: #### L LP14 #### [address] [address] Protein [Mass/Vol] 7.6 g/dL Normal 6.3-8.0 [facility] Comment on above: Performed By: #### L LP14 #### [address] [address] Sodium [Moles/Vol] 136 mmol/L Normal 136-144 [facility] Comment on above: Performed By: #### L LP14 #### [address] [address] Urea nitrogen [Mass/Vol] 16 mg/dL Normal 9-24 [facility] Comment on above: Performed By: #### L LP14 #### [address] [address] Hemogramon 01-11-2020 Erythrocyte distribution width (RBC) [Ratio] 20.7 % High 11.5-15.9 [facility] Comment on above: Performed By: #### L CBC #### [address] [address] Hematocrit (Bld) [Volume fraction] 45.0 % Normal 42.0-52.0 [facility] Comment on above: Performed By: #### L CBC #### [address] [place], [place] [address] Hemoglobin (Bld) [Mass/Vol] 14.5 g/dL Normal 14.0-18.0 [facility] Comment on above: Performed By: #### L CBC #### [facility] [address] [place] [address] MCH (RBC) [Entitic mass] 24.0 pg Low 27.0-31.0 [facility] Comment on above: Performed By: #### L CBC #### [facility] [address] [place] [address] MCHC (RBC) [Mass/Vol] 32.2 % Normal 32.0-36.[address] [facility] Comment on above: Performed By: #### L CBC #### [place] [address] MCV (RBC) [Entitic vol] 74.6 fL Low 80.0-94.0 [facility] Comment on above: Performed By: #### L CBC #### [place] [address] Platelet mean volume (Bld) [Entitic vol] 10.1 fL Normal 7.1-10.5 [facility] Comment on above: Performed By: #### L CBC #### [place] [address] Platelets (Bld) [#/Vol] 294 thou/cmm Normal 150-400 [facility] Comment on above: Performed By: #### L CBC #### [place] [address] RBC (Bld) [#/Vol] 6.03 mil/cmm Normal 4.60-6.20 [facility] Comment on above: Performed By: #### L CBC #### [place] [address] WBC (Bld) [#/Vol] 6.9 thou/cmm Normal 4.8-10.5 [facility] Comment on above: Performed By: #### L CBC #### [place] [address] MDRD eGFRon 07-16-2020 GFR/1.73 sq M predicted among non-blacks MDRD (S/P/Bld) [Vol rate/Area] mL/min/{1.73_m2} Normal >60mL/min/1. 73m2 [facility] Comment on above: Result Comment: If t he patient is , multiply the result by 1.210. Performed By: #### L GFR #### [place] [address] Sed Rateon 01-11-2020 Sed Rate 2 mm/hr Normal 0-15 [facility] Comment on above: Performed By: #### E SR #### [place] [address] Total 25-OH Vitamin Don 12-26 Total 25-OH Vitamin D 41.4 ng/mL Normal 30.0-100.[address] [facility] Comment on above: Performed By: #### 2 5VD1 #### [place] [address] Misc. Teston 09-15-2019 Misc. Test Result SEE BELOW Normal [facility] Comment on above: Result Comment: ADA NEUTRALIZING AB NOT DETECTED EER ADALIMUMAB SEE NOTE (NOTE) Access [facility]/[employer] Enhanced Report using either link below: -Direct access: [email or web address] -Enter Username, Password: [email or web address] Username: [email or web address] Password: [email or web address] Performed by [facility] [employer] [facility], [address] [place] [id number] [email or web address], Erick Mendoza MD, Lab. Director ADALIMUMAB ACTIVITY 11.42 Reference range: >=0.65 Unit: ug/mL (NOTE) INTERPRETIVE INFORMATION: Adalimumab Activity and Neutralizing Ab This test measures the capacity of adalimumab to neutralize TNF activity. Additionally, adalimumab neutralizing antibodies (NAb) are titered, reporting the minimal serum dilution at which blocking of adalimumab activity is no longer observed. This test is used to evaluate secondary response failures to adalimumab therapy. Secondary response failure is defined as loss of clinical response after initial improvement of clinical signs and symptoms. Therapeutic decision should rest on both the clinical response and the knowledge of the fate of the drug including the emergence of immunogenicity in individual patients. Circulating adalimumab levels have been shown to vary considerably between patients. These differences relate to route and frequency of administration and patient-related features such as age, gender, weight, drug metabolism, and concomitant medications such as methotrexate and other immunosuppressants. Clinical Interpretation of Adalimumab and Antibody Testing Results in the Context of Treatment Failure Adalimumab Adalimumab Interpretation Activity Neutralizing Antibody Titer Not Detected Not Detected Sub-therapeutic dose. A higher dosage of adalimumab or shortening the dosing interval may be appropriate. Not Detected Detected Likely immune-mediated treatment failure. A change to another anti-TNF drug may be appropriate. Detected - N/A Sub-therapeutic dose. A Below Target* higher dosage of adalimumab or shortening the dosing interval may be appropriate. Detected - N/A A change to another type Above Target* of therapy (not targeting TNF) may be appropriate if patient is not responding. * [facility] recommended target trough concentration for reactive monitoring of patients with active IBD on maintenance therapy is 7.5 ug/mL or greater for adalimumab (Mee PORTILLO et al, Gastroenterology 2017; 153:827-834). The AGA makes no recommendation regarding the use of routine, proactive therapeutic drug monitoring in adults with quiescent IBD treated with anti-TNF agents. Test developed and characteristics determined by [facility] [employer] [facility]. See Compliance Statement B: [email or web address] Performing Laboratory: Performed By: #### G OX #### [place] [address] Misc. Teston 09-11-2019 [facility] Order Code ADANEU Normal [facility] Comment on above: Performed By: #### G OX #### [place] [address] Test Name Adalimumab Normal [facility] Comment on above: Performed By: #### G OX #### [place] [address] Comprehensive Panelon 2019 ALP [Catalytic activity/Vol] 71 U/L Normal 45-117 [facility] Comment on above: Performed By: #### P 14 #### [place] [address] Protein [Mass/Vol] 7.5 g/dL Normal 6.4-8.2 [facility] Comment on above: Performed By: #### P 14 #### [facility] [address] [place], [place] [address] Bilirubin [Mass/Vol] 0.4 mg/dL Normal 0.2-1.0 [facility] Comment on above: Result Comment: Use of this assay is not recommended for patients undergoing treatment with eltrombopag due to the potential for falsely elevated results. Performed By: #### P 14 #### [facility] [address] [place], [place] [address] Creatinine [Mass/Vol] 1.07 mg/dL Normal 0.67-1.[address] [facility] Comment on above: Result Comment: Use of this assay is not recommended for patients undergoing treatment with phenindione, due to the potential for falsely depressed results. Performed By: #### P 14 #### [facility] [address] [place], [place] [address] ALT [Catalytic activity/Vol] 25 U/L Normal 12-78 [facility] Comment on above: Performed By: #### P 14 #### [facility] [address] [place], [place] [address] AST [Catalytic activity/Vol] 16 U/L Normal 15-37 [facility] Comment on above: Performed By: #### P 14 #### [facility] [address] [place], [place] [address] Anion gap [Moles/Vol] 8 mmol/L Normal 8-[address] [facility] Comment on above: Performed By: #### P 14 #### [facility] [address] [place], [place] [address] CO2 [Moles/Vol] 28 mmol/L Normal 21-32 [facility] Comment on above: Performed By: #### P 14 #### [facility] [address] [place], [place] [address] Glucose [Mass/Vol] 80 mg/dL Normal 70-99 [facility] Comment on above: Performed By: #### P 14 #### [facility] [address] [place], [place] [address] Albumin [Mass/Vol] 4.0 g/dL Normal 3.4-5.0 [facility] Comment on above: Performed By: #### P 14 #### [facility] [address] [place] [address] Calcium [Mass/Vol] 9.6 mg/dL Normal 8.5-10.1 [facility] Comment on above: Performed By: #### P 14 #### [facility] [address] [place] [address] Urea nitrogen [Mass/Vol] 16 mg/dL Normal 7-18 [facility] Comment on above: Performed By: #### P 14 #### [facility] [address] [place] [address] Chloride [Moles/Vol] 103 mmol/L Normal 98-107 [facility] Comment on above: Performed By: #### P 14 #### [facility] [address] [place] [address] Potassium [Moles/Vol] 4.2 mmol/L Normal 3.5-5.[address] [facility] Comment on above: Performed By: #### P 14 #### [place] [address] Sodium [Moles/Vol] 135 mmol/L Low 136-145 [facility] Comment on above: Performed By: #### P 14 #### [place] [address] Hemogram/Diffon 08-22-2019 Abs. Baso 0.02 thou/cmm Normal 0.00-0.08 [facility] Comment on above: Performed By: #### L CBCD #### [facility] [address] [place] [address] Abs. [place] 0.59 thou/cmm Normal 0.20-1.00 [facility] Comment on above: Performed By: #### L CBCD #### [place] [address] Abs. Neut (ANC) 4.82 thou/cmm Normal 3.00-5.67 [facility] Comment on above: Performed By: #### L CBCD #### [facility] [address] [place], [place] [address] Basophils/100 WBC (Bld) 0.3 % Normal [facility] Comment on above: Performed By: #### L CBCD #### [facility] [address] [place], [place] [address] Eosinophils (Bld) [#/Vol] 0.07 thou/cmm Normal 0.00-0.41 [facility] Comment on above: Performed By: #### L CBCD #### [facility] [address] [place], [place] [address] Eosinophils/100 WBC (Bld) 0.9 % Normal [facility] Comment on above: Performed By: #### L CBCD #### [facility] [address] [place], [place] [address] Erythrocyte distribution width (RBC) [Ratio] 14.2 % Normal 11.5-15.9 [facility] Comment on above: Performed By: #### L CBCD #### [facility] [address] [place], [place] [address] Hematocrit (Bld) [Volume fraction] 40.7 % Low 42.0-52.0 [facility] Comment on above: Performed By: #### L CBCD #### [facility] [address] [place], [place] [address] Hemoglobin (Bld) [Mass/Vol] 12.8 g/dL Low 14.0-18.0 [facility] Comment on above: Performed By: #### L CBCD #### [facility] [address] [place], [place] [address] Lymphocytes (Bld) [#/Vol] 2.00 thou/cmm Normal 1.50-3.65 [facility] Comment on above: Performed By: #### L CBCD #### [facility] [address] [place], [place] [address] Lymphocytes/100 WBC (Bld) 26.6 % Normal [facility] Comment on above: Performed By: #### L CBCD #### [address] [address] MCH (RBC) [Entitic mass] 24.5 pg Low 27.0-31.0 [facility] Comment on above: Performed By: #### L CBCD #### [facility] [address] [place] [address] MCHC (RBC) [Mass/Vol] 31.4 % Low 32.0-36.[address] [facility] Comment on above: Performed By: #### L CBCD #### [facility] [address] [place] [address] MCV (RBC) [Entitic vol] 78.0 fL Low 80.0-94.0 [facility] Comment on above: Performed By: #### L CBCD #### [place] [address] Monocytes/100 WBC (Bld) 7.9 % Normal [facility] Comment on above: Performed By: #### L CBCD #### [place] [address] Platelet mean volume (Bld) [Entitic vol] 9.3 fL Normal 7.1-10.5 [facility] Comment on above: Performed By: #### L CBCD #### [place] [address] Platelets (Bld) [#/Vol] 381 thou/cmm Normal 150-400 [facility] Comment on above: Performed By: #### L CBCD #### [place] [address] RBC (Bld) [#/Vol] 5.22 mil/cmm Normal 4.60-6.20 [facility] Comment on above: Performed By: #### L CBCD #### [place] [address] Seg Neutrophil 64.3 % Normal [facility] Comment on above: Performed By: #### L CBCD #### [address] [address] WBC (Bld) [#/Vol] 7.5 thou/cmm Normal 4.8-10.5 [facility] Comment on above: Performed By: #### L CBCD #### [facility] 1 [place] [id number] MDRD GFRon 08-22-2019 GFR/1.73 sq M predicted among non-blacks MDRD (S/P/Bld) [Vol rate/Area] mL/min/{1.73_m2} Normal >60mL/min/1. 73m2 [facility] Comment on above: Result Comment: If t he patient is , multiply the result by 1.210. Performed By: #### G FR #### [facility] [address] [place] [address] CBC and Differentialon 06-03 Abs Baso <0.03 Normal <0.11 [facility] Comment on above: Performed By: #### C BCJACQUELINE CMP ####[place] [address] Abs Overton 1.02 k/uL High <0.87 [facility] Comment on above: Performed By: #### C BCBRYNF CMP ####[place] [address] Abs Neut 4.88 k/uL Normal 1.45-7.50 [facility] Comment on above: Performed By: #### C BCJACQUELINE CMP ####[place] [address] Basophils/100 WBC Auto (Bld) 0.2 % Normal [facility] Comment on above: Performed By: #### C BCJACQUELINE CMP ####[place] [address] Eosinophils 0.11 10*3/uL Normal <0.46 [facility] Comment on above: Performed By: #### C BCDIF CMP ####[place] [address] Eosinophils/100 leukocytes 1.3 % Normal [facility] Comment on above: Performed By: #### C BCDIF CMP ####[place] [address] Erythrocyte distribution width Auto Ratio (RBC) 12.1 % Normal 11.5-15.0 [facility] Comment on above: Performed By: #### C BCDIF CMP ####[place] [address] Erythrocytes (RBC) 5.48 10*6/uL Normal 4.20-6.00 [facility] Comment on above: Performed By: #### C BCDIF, CMP ####[place] [address] Hematocrit (HCT) 46.0 % Normal 39.0-51.0 [facility] Comment on above: Performed By: #### C BCDIF, CMP ####[place] [address] Hemoglobin mass conc (Bld) 14.9 g/dL Normal 13.0-17.0 [facility] Comment on above: Performed By: #### C BCDIF, CMP ####[place] [address] Lymphocytes 2.66 10*3/uL Normal 1.00-4.00 [facility] Comment on above: Performed By: #### C BCDIF, CMP ####[place] [address] Lymphocytes/100 leukocytes 30.6 % Normal [facility] Comment on above: Performed By: #### C BCDIF, CMP ####[place] [address] MCH 27.2 pG Normal 26.0-34.0 [facility] Comment on above: Performed By: #### C BCDIF, CMP ####[place] [address] MCHC mass conc (RBC) 32.4 g/dL Normal 30.5-36.0 [facility] Comment on above: Performed By: #### C BCDIF, CMP ####[place] [address] MCV 83.9 fL Normal 80.0-100.0 [facility] Comment on above: Performed By: #### C BCDIF, CMP ####[place] [address] Monocytes/100 leukocytes 11.7 % Normal [facility] Comment on above: Performed By: #### C BCDIF, CMP ####[facility] [address] [place] [address] Neutrophils/100 WBC Auto (Bld) 56.2 % Normal [facility] Comment on above: Performed By: #### C SHIMON CMP ####[place] [address] Platelet mean volume (PMV) 8.4 fL Low 9.0-12.7 [facility] Comment on above: Performed By: #### C SHIMON CMP ####[place] [address] Platelets 289 10*3/uL Normal 150-400 [facility] Comment on above: Performed By: #### C SHIMON CMP ####[place] [address] WBC (Leukocytes) 8.69 10*3/uL Normal 3.70-11.00 [facility] Comment on above: Performed By: #### C SHIMON CMP ####[place] [address] Comp Metabolic Panelon 06-03 Alanine aminotransferase (ALT) 40 U/L Normal 5-50 [facility] Comment on above: Performed By: #### C SHIMON CMP ####[place] [address] Albumin 4.5 g/dL Normal 3.5-5.0 [facility] Comment on above: Performed By: #### C SHIMON CMP ####[place] [address] Alkaline phosphatase (ALP) 101 U/L Normal 50-350 [facility] Comment on above: Performed By: #### C BCJACQUELINE CMP ####[place] [address] Anion gap 12 mmol/L Normal 0-15 [facility] Comment on above: Performed By: #### C BCJACQUELINE CMP ####[place] [address] Aspartate aminotransferase (AST) 25 U/L Normal 7-40 [facility] Comment on above: Performed By: #### C BCDIF, CMP ####[facility] [address] [place] [address] Bilirubin (total) 0.4 mg/dL Normal 0.0-1.5 [facility] Comment on above: Performed By: #### C BCDIF, CMP ####[facility] [address] [place] [address] Calcium 9.9 mg/dL Normal 8.5-10.5 [facility] Comment on above: Performed By: #### C BCDIF, CMP ####[facility] [address] [place] [address] Chloride 102 mmol/L Normal 98-110 [facility] Comment on above: Performed By: #### C BCDIF, CMP ####[place] [address] CO2 27 mmol/L Normal 23-32 [facility] Comment on above: Performed By: #### C BCDIF, CMP ####[place] [address] Creatinine 1.12 mg/dL Normal 0.40-1.30 [facility] Comment on above: Performed By: #### C BCDIF, CMP ####[place] [address] eGFR (non-black) 0.63 mL/min/{1.73_m2} Normal [facility] Comment on above: Result Comment: eGFR (Estimated GFR) Units of measure: mL/min/1.73 meters squaredeGFR in pediatric patients is derived from the 4 variable Michaud equation for glomerular filtration rate (GFR) based on a stable serum creatinine, gender, age, and height. The creatinine assay has been calibrated to be traceable to IDMS.TO CALCULATE THE PATIENT'S ESTIMATED GFR: Multiply the GFR Pediatric Factor by the patient's height (centimeters).An eGFR <60 mL/min/1.73m2 for >3 months is consistent with chronic kidney disease. Refer to KDOQI guidelines for clinical interpretation. Performed By: #### C BCDIF, CMP ####[facility] [address] [place] [address] Glucose mass conc 87 mg/dL Normal 65-100 [facility] Comment on above: Performed By: #### C BCDIF, CMP ####[facility] [address] Potassium molar conc 4.1 mmol/L Normal 3.5-5.0 [facility] Comment on above: Performed By: #### C BCDIF, CMP ####[facility] [address] [place] [phone] Protein 8.4 g/dL Normal 6.0-8.4 [facility] Comment on above: Performed By: #### C BCDIF, CMP ####[facility] [address] [place] [id number] Sodium 141 mmol/L Normal 135-146 [facility] Comment on above: Performed By: #### C BCDIF, CMP ####[facility] [address] [place] [id number] Urea nitrogen 13 mg/dL Normal 5-20 [facility] Comment on above: Performed By: #### C BCDIF, CMP ####[facility] [address] [place] [address] ED NOTEon 06-03-2017 ED NOTE HNO ID: [id number] Author: Sabrina (Rn) BALTA Salinas Service: (none) Author Type: Registered Nurse Type: ED Notes Filed: 06/03/2017 12:16 AM Note Text: Pt presents to ED with complaints of rectal bleeding x 4 days. Normal [facility] ED PROV NOTEon 06-03-2017 ED PROV NOTE HNO ID: [id number] thor: Paulo Vasquez (Oj) CribbinsService: (none)Author Type: Physician AssistantType: ED Provider NotesFiled: 06/03/2017 12:49 AMNote Text: ----Attestation signed by Renee Lund DO at 06/03/2017 1:25 AMAttending NoteI have discussed the case with the PA and agree with their assessment and plan.Other additions or changes: NoneSignature: Lina Taylor: 06/03/2017Time: 1:25 AM -ED Provider NotePatient Name: Mc RiceMRN: [id number] DATE: 06/03/17HistoryPatient presents with:Rectal BleedingHPI Comments: 16-year-old male presents emergency Department withcomplaints of 4 days of rectal bleeding. Patient denies any history ofrectal bleeding. Denies any bleeding elsewhere including bloody nose orexcessive bruising. Patient denies any difficulty with bowel movements,increase in bowel movements or other complications. States he had bellypain yesterday and had a stomach flu one week ago is not sure if these arerelated. Denies any pain at this time. Denies any rectal pain. Deniesbeing on any blood thinners. Denies any urinary symptoms.History provided by: Patient and parentLanguage casualty underwriter used: NoPAST MEDICAL HISTORYDiagnosis Date- Contusion of left ankle 10/24/1015- Ganglion cyst of wrist 10/27/2011- Localized swelling, mass and lump, left lower limb- Obesity- Pain in left ankle and joints of left foot- Rheumatoid arthritis(714.0)PAST SURGICAL HISTORYProcedure Laterality Date- PAST SURGICAL HISTORY OF cyst lt wrist- debridment RA- WRIST rt wrist fractured Jan 2012 ORIFFAMILY HISTORYProblem Relation Age of Onset- COPD Maternal Grandmother- COPD Maternal Grandfather- GI Mother- Lipids Maternal Grandmother- Hypertension MotherSocial HistorySocial History Main Topics- Smoking status: Passive Smoke Exposure - Never Smoker- Smokeless tobacco: Never Used- Alcohol use No Comment: Non-drinker- Drug use: No Comment: No reported history- Sexual activity: Not AskedALLERGIESNo Known AllergiesReview of SystemsConstitutional: Negative. Negative for chills, fatigue and fever.HENT: Negative.Respiratory: Negative. Negative for cough, shortness of breath andwheezing.Cardiovascular: Negative. Negative for chest pain.Gastrointestinal: Positive for abdominal pain and blood in stool. Negativefor nausea and vomiting. ABD pain yesterday. No pain nowGenitourinary: Negative. Negative for dysuria, flank pain and frequency.Musculoskeletal: Negative. Negative for back pain and neck pain.Skin: Negative. Negative for rash and wound.Neurological: Negative. Negative for dizziness, syncope, weakness andheadaches.Psychiatric/Be havioral: Negative.Physical ExamBP 131/83 Pulse 84 Temp 98.8 Resp 16 Wt 250 lb (113.4kg) BaP146%Physical ExamConstitutional: He is oriented to person, place, and time. He appearswell-developed and well-nourished. No distress.HENT:Head: Normocephalic and atraumatic.Eyes: EOM are normal. Pupils are equal, round, and reactive to light.Neck: Normal range of motion.Cardiovascular: Normal rate, regular rhythm and normal heart sounds.Pulmonary/Chest: Effort normal and breath sounds normal. No respiratorydistress. He has no wheezes.Abdominal: Soft. Bowel sounds are normal. He exhibits no distension. Thereis no tenderness. There is no rebound and no guarding.Genitourinary: Rectal exam shows no external hemorrhoid, no mass and notenderness.Musculoskeleta l: Normal range of motion.Neurological: He is alert and oriented to person, place, and time. Nocranial nerve deficit.Skin: Skin is warm. No rash noted. No erythema.Psychiatric: He has a normal mood and affect. His behavior is normal.Judgment and thought content normal.Nursing note and vitals reviewed.Diagnostic TestingED Labs Ordered and ReviewedCBC + DIFF - Abnormal; Notable for the following: Result Value Ref Range MPV 8.4 (*) 9.0 - 12.7 fL Abs Overton 1.02 (*) <0.87 k/uL All other components within normal limitsCOMP METABOLIC PANELProceduresMedical Decision Making / ED CourseED CourseAnd hemodynamically stable at time of discharge. Patient and patient'smother feel comfortable discharge plan ice and the importance offollow-up.Encounter Diagnosis ICD-10-CM1. Rectal bleeding K62.5PlanDISPOSITION:DISCHA RGED: Counseled patient and mother regarding lab results ANDsuspected diagnosis AND need for follow-up. Discharged home with verbal andwritten instructions. They were instructed to return as needed forpersistent or worsening symptoms or any new concerns.Condition at time of disposition: stableSIGNATURE: Enrike Murray (Oj) Rfhpegxy72/07/17 0041Bcharo Singleton) Dbheeojz08/07/17 0049Renee Lund DO06/03/17 0125 [facility] Vital Signs Date Time Vital Sign Value Performing Clinician Shae flowers 10-16-2024 12:45-0400 Body temperature 98.2 [degF] Nick Trill [employer] [facility] Work Phone: [facility] 10-16-2024 12:45-0400 Diastolic blood pressure 61 mm[Hg] Nick Trill [employer] [facility] Work Phone: [facility] 10-16-2024 12:45-0400 Heart rate 61 /min Nick Trill [employer] Work Phone: [facility] 10-16-2024 12:45-0400 Respiratory rate 14 /min Nick Trill [employer] Work Phone: [facility] 10-16-2024 12:45-0400 SaO2% (BldA) [Mass fraction] 96 % Nick Trill [employer] Work Phone: [facility] 10-16-2024 12:45-0400 Systolic blood pressure 103 mm[Hg] Nick Trill [employer] Work Phone: [facility] 10-16-2024 10:45-0400 Body height 185.42 cm Nick Trill [employer] Work Phone: [facility] 10-16-2024 10:45-0400 Body mass index (BMI) [Ratio] 22.6 kg/m2 Nick Trill [employer] Work Phone: [facility] 10-16-2024 10:45-0400 Body weight 78 kg Nick Trill [employer] Work Phone: [facility] 10-12-2024 12:20-0400 Body temperature 97.3 [degF] Dora Cook DO Work Phone: [facility] 10-12-2024 12:20-0400 Diastolic blood pressure 70 mm[Hg] Dora Cook DO Work Phone: [facility] 10-12-2024 12:20-0400 Heart rate 72 /min Dora Cook DO Work Phone: [facility] 10-12-2024 12:20-0400 Respiratory rate 16 /min Dora Cook DO Work Phone: [facility] 10-12-2024 12:20-0400 SaO2% (BldA) [Mass fraction] 98 % Dora Kate DO Work Phone: [facility] 10-12-2024 12:20-0400 Systolic blood pressure 129 mm[Hg] Dora Cook DO Work Phone: [facility] 10-12-2024 08:00-0400 Body height 185 cm Dora Kate DO Work Phone: [facility] 10-12-2024 08:00-0400 Body mass index (BMI) [Ratio] 23.55 kg/m2 Dora Cook DO Work Phone: [facility] 10-12-2024 08:00-0400 Body weight 80.6 kg Dora Cook DO Work Phone: [facility] 09-28-2024 13:25-0400 Body temperature 97.5 [degF] Dora Cook DO Work Phone: [facility] 09-28-2024 13:25-0400 Diastolic blood pressure 70 mm[Hg] Dora Cook DO Work Phone: [facility] 09-28-2024 13:25-0400 Heart rate 68 /min Dora Cook DO Work Phone: [facility] 09-28-2024 13:25-0400 Respiratory rate 16 /min Dora Kate DO Work Phone: [facility] 09-28-2024 13:25-0400 SaO2% (BldA) [Mass fraction] 100 % Dora Kate DO Work Phone: [facility] 09-28-2024 13:25-0400 Systolic blood pressure 117 mm[Hg] Dora Kate DO Work Phone: [facility] 09-28-2024 08:55-0400 Body height 184 cm Dora Kate DO Work Phone: [facility] 09-28-2024 08:55-0400 Body mass index (BMI) [Ratio] 23.84 kg/m2 Dora Kate DO Work Phone: [facility] 09-28-2024 08:55-0400 Body weight 80.7 kg Dora Kate DO Work Phone: [facility] 09-25-2024 09:10-0400 Body weight 79.37 kg Nick HEDRICK Work Phone: [facility] 03-30-2024 12:25-0400 Body temperature 97.7 [degF] Dora Kate DO Work Phone: [facility] 03-30-2024 12:25-0400 Diastolic blood pressure 82 mm[Hg] Dora Kate DO Work Phone: [facility] 03-30-2024 12:25-0400 Heart rate 97 /min Dora Cook DO Work Phone: [facility] 03-30-2024 12:25-0400 Respiratory rate 16 /min Dora Kate DO Work Phone: [facility] 03-30-2024 12:25-0400 SaO2% (BldA) [Mass fraction] 98 % Dora Kate DO Work Phone: [facility] 03-30-2024 12:25-0400 Systolic blood pressure 124 mm[Hg] Dora Kate DO Work Phone: [facility] 03-30-2024 08:34-0400 Body height 184.8 cm Dora Kate DO Work Phone: [facility] 03-30-2024 08:34-0400 Body mass index (BMI) [Ratio] 24.25 kg/m2 Dora Kate DO Work Phone: [facility] 03-30-2024 08:34-0400 Body weight 82.8 kg Dora Kate DO Work Phone: [facility] 03-16-2024 13:55-0400 Body temperature 98.1 [degF] Misc Doc [facility] 03-16-2024 13:55-0400 Diastolic blood pressure 80 mm[Hg] Misc Lev [facility]CGOVERN [facility] 03-16-2024 13:55-0400 Heart rate 84 /min Misc Lev [facility] 03-16-2024 13:55-0400 Respiratory rate 16 /min Misc Doc [facility] 03-16-2024 13:55-0400 SaO2% (BldA) [Mass fraction] 96 % Misc Doc [facility] 03-16-2024 13:55-0400 Systolic blood pressure 123 mm[Hg] Misc Lev [facility] 03-16-2024 08:30-0400 Body height 187.5 cm Misc Lev [facility] 03-16-2024 08:30-0400 Body mass index (BMI) [Ratio] 23.95 kg/m2 Misc Lev [facility] 03-16-2024 08:30-0400 Body weight 84.2 kg Francesc Lev [facility] Encounters Encounter Date Encounter Type Care Provider Facility Start: 11-17-2024 End: 11-17-2024 ambulatory Nick Olson NP Facility:[facility] Start: 11-08-2024 End: 11-08-2024 ambulatory Nick Olson NP Facility:[facility] Start: 10-16-2024 ambulatory Nick Olson NP Facili ty:[facility] Start: 10-16-2024 Non-patient / Non-visit Hunter Navasstephanie raina DO -[facility] Start: 10-16-2024 End: 10-16-2024 Admission to same day surgery center Hunter Ceja DO -Endoscopy Work Phone: Start: 10-16-2024 End: 10-16-2024 ambulatory Nick Olson [employer] Work Phone: [facility] Work Phone: Start: 10-12-2024 End: 10-12-2024 Subsequent hospital visit by physician Dora Kate DO Work Phone: [facility] Comment on above: long-term (current) use of non-steroidal anti-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 (nsaid) (Primary Dx); long-term current use of 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; Rheumatoid arthritis of multiple sites with negative rheumatoid factor; Vitamin D deficiency Start: 10-12-2024 End: 10-12-2024 ambulatory [facility] Start: 10-04-2024 End: 10-04-2024 ambulatory Nick Olson [employer] Work Phone: [facility] Work Phone: Start: 10-04-2024 End: 10-04-2024 Patient encounter procedure Hunter Ceja DO -Laboratory, Specimen Work Phone: Start: 10-04-2024 End: 10-04-2024 ambulatory Hunter Ceja Facility: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 Work Phone: Start: 09-25-2024 End: 09-25-2024 Patient encounter procedure Hunter Ceja DO -[facility] Work Phone: Start: 09-25-2024 End: 09-25-2024 ambulatory Hunter Ceja Facility:[facility] Start: 08-31-2024 End: 08-31-2024 ambulatory [facility] Start: 2024 End: 2024 ambulatory [facility] Start: 07-31-2024 End: 07-31-2024 ambulatory NICK OLSON Facility:[facility] Start: 06-14-2024 End: 06-14-2024 ambulatory NICK C TRILL Facility:[facility] Start: 05-17-2024 End: 05-17-2024 [facility] Start: 03-30-2024 End: 03-30-2024 Subsequent hospital visit by physician Dora Kate DO Work Phone: [facility] Comment on above: 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 (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) (Primary Dx); 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; Rheumatoid arthritis of multiple sites with negative rheumatoid factor; Vitamin D deficiency Start: 03-30-2024 End: 03-30-2024 ambulatory NICK Rojo [facility] Start: 03-16-2024 End: 03-16-2024 Subsequent hospital visit by physician Suleiman Ohara MD [facility] Comment on above: long-term (current) use of non-steroidal anti-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 (nsaid) (Primary Dx); 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; Rheumatoid arthritis of multiple sites with negative rheumatoid factor; Vitamin D deficiency Start: 03-16-2024 End: 03-16-2024 ambulatory NICK Rojo [facility] Start: 03-01-2024 End: 03-01-2024 ambulatory NICK OLSON Facility:[facility] Start: 02-17-2024 End: 02-17-2024 ambulatory [facility] Start: 12-28-2023 End: 12-28-2023 ambulatory DORA Darrel FLY Facility:[facility] Start: 12-13-2023 End: 12-13-2023 ambulatory NICK OLSON Facility:[facility] Start: 12-13-2023 Encounter for genera l adult medical examination without abnormal findings [facility] Start: 11-30-2023 End: 11-30-2023 [facility] NICK Darrel [facility] Start: 11-01-2023 End: 11-01-2023 Subsequent hospital visit by physician Dora Kate DO Work Phone: [facility] Comment on above: Rheumatoid arthritis of multiple sites with negative rheumatoid factor; 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 Start: 11-01-2023 End: 11-01-2023 [facility] Start: 11-01-2023 End: 11-01-2023 Subsequent hospital visit by physician Dora Kate DO Work Phone: Interventional Radiology Comment on above: Rheumatoid arthritis of multiple sites with negative rheumatoid factor; Arthritis of right elbow Start: 11-01-2023 End: 11-01-2023 [facility] Start: 10-20-2023 End: 10-20-2023 ambulatory NICK OLSON Facility:[facility] Start: 02-15-2023 End: 02-15-2023 Subsequent hospital visit by physician Madison Yo MD Work Phone: [facility] Comment on above: IBD (inflammatory gladis wel disease); Elevated liver enzymes Start: 08-31-2022 End: 08-31-2022 Subsequent hospital visit by physician Dora Kate DO Work Phone: Interventional Radiology Comment on above: 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); Arthritis of left wrist; Arthritis of right elbow Start: 11-13-2021 End: 11-13-2021 Subsequent hospital visit by physician Dora Kate DO Work Phone: Interventional Radiology Comment on above: 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); long-term current use of 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; Vitamin D deficiency Start: 10-26-2017 Ambulatory DORA [facility] Start: 09-22-2017 Normal vision Dora Mayer Sarah Work Phone: [facility] Start: 06-03-2017 End: 06-03-2017 Emergency department patient visit DORA [facility] Start: 01-24-2017 Ambulatory [facility] Procedures Date Procedure Procedure Detail Performing Clinician Start: 10-16-2024 Colonoscopy Nick parra NP-C Work Phone: Start: 10-12-2024 Blood count hemoglobin NICK OLSON Comment on above: Order Comment: Relea se to patient->Automatic Start: 10-12-2024 Urnls dip stick/tabl et reagent auto microscopy Dora Kate DO Work Phone: Start: 10-12-2024 Comprehensive metabo lic panel Dorawyatt Kate DO Work Phone: Start: 10-04-2024 Lactoferrin measurement Nick Olson [facility] Work Phone: Start: 10-04-2024 Measurement of occul t blood in stool specimen using immunoassay Nick Olson NP-C Work Phone: Start: 10-04-2024 Nucleic acid assay Rashel Olson [facility] Work Phone: Start: 09-28-2024 Blood count hemoglobin NICK OLSON Comment on above: Order Comment: Relea se to patient->Automatic Start: 09-28-2024 Urnls dip stick/tabl et reagent auto microscopy Dora Kate DO Work Phone: Start: 09-28-2024 Comprehensive metabo lic panel Dora Kate DO Work Phone: Start: 03-30-2024 Blood count hemoglobin NICK OLSON Comment on above: Order Comment: Relea se to patient->Automatic Performed By: #### 2 100 #### VANNA Quintana ([id number]) [facility]) [address] Start: 03-30-2024 Urnls dip stick/tabl et reagent auto microscopy Dora Kate DO Work Phone: Start: 03-30-2024 Comprehensive metabo lic panel Dora Kate DO Work Phone: Start: 03-16-2024 Urnls dip stick/tabl et reagent auto microscopy Dora Kate DO Work Phone: Start: 03-16-2024 End: 03-16-2024 Comprehensive metabolic panel Dora Kate DO Work Phone: Comment on above: Order Comment: Relea se to patient->Automatic Performed By: #### 1 001 #### VANNA SAENZ W ([id number]) [facility]) [address] Start: 11-01-2023 Unlisted fluoroscopi c procedure Dora Kate DO Work Phone: Start: 02-15-2023 Us abdominal real ti me w/image limited Madison Yo MD Work Phone: Start: 08-31-2022 Unlisted fluoroscopi c procedure Dora Kate DO Work Phone: Start: 11-13-2021 CBC W Auto Different ial panel - Blood Dora Kate DO Work Phone: Start: 11-13-2021 End: 11-13-2021 Comprehensive metabolic panel Dora Kate DO Work Phone: Start: 11-13-2021 Manual Differential panel - Blood Dora Kate DO Work Phone: Start: 11-13-2021 Unlisted fluoroscopi c procedure Dora Kate DO Work Phone: Plan of Treatment Date Care Activity Detail Author Start: 08-16-2034 Tetanus Diphtheria and Pertussis Vaccines (8 - Td or Tdap) Tetanus Diphtheria and Pertussis Vaccines (8 - Td or Tdap) [facility] Start: 09-28-2025 TB Test TB Test [facility] Start: 04-26-2025 End: 04-26-2025 Patient encounter procedure 04/26/2025 8:00 AM EDT Appointment Infusion [facility] [address] [facility], Floor 1 [place] [id number] [facility] Comment on above: [facility] Start: 04-13-2025 End: 04-13-2025 Patient encounter procedure 04/13/2025 8:00 AM EDT Appointment [facility]fusion [facility] [address] [place] [address], Floor 1 [place] [address] [facility] Comment on above: [facility] Start: 02-13-2025 MenB (2 of 2 - MenB 2-Dose Series Bexsero) MenB (2 of 2 - MenB 2-Dose Series Bexsero) [facility] Start: 10-31-2024 TB Test TB Test [facility] Start: 10-16-[address] [facility] Start: 10-12-2024 End: 10-12-2024 Patient encounter procedure Infusion Center Comment on above: [facility] Start: 09-28-2024 End: 09-28-2024 Patient encounter procedure 09/28/2024 9:00 AM EDT Appointment Infusion [facility] [address] [facility], Floor 1 [place] [address] [facility] Comment on above: [facility] Start: 09-25-2024 Acute hepatitis 2000 panel - Serum [facility] Start: 09-25-2024 Angiotensin converting enzyme [Enzymatic activity/volume] in Serum or Plasma [facility] Start: 09-25-[address] [facility] Start: 09-25-2024 Haptoglobin [Mass/volume] in Serum or Plasma [facility] Start: 09-25-2024 IgG subclass panel [Mass/volume] - Serum [facility] Start: 09-25-[address] [facility] Start: 09-25-2024 In-vitro immunologic test [facility] Start: 09-25-2024 Mitochondria Ab [Presence] in Serum [facility] Start: 09-25-[address] [facility] Start: 09-25-2024 Smooth muscle Ab [Presence] in Serum [facility] Start: 09-25-2024 Vitamin D, 1,25-dihydroxy measurement [facility] Start: 09-25-2024 [facility] Start: 05-17-2024 End: 05-17-2024 Patient encounter procedure Rheumatology [facility] Comment on above: 3 mo FU Start: 03-30-2024 End: 03-30-2024 Patient encounter procedure 03/30/2024 8:30 AM EDT Appointment Infusion Center [address] [place] [address], Floor 1 [place] [address] Infusion Center Start: 02-27-2024 COVID-19 ( season) COVID-19 ( season) [facility] Start: 02-27-2024 COVID-19 ( season) COVID-19 ( season) [facility] Start: 02-16-2024 End: 02-16-2024 Patient encounter procedure 02/16/2024 8:30 AM EDT Office Visit Rheumatology - [address] [place] [address] Dora Kate, [place] [address] Rheumatology - [place] Start: 11-30-2023 End: 11-30-2023 Patient encounter procedure 11/30/2023 11:00 AM EDT Office Visit Gastroenterology - [address] [place], [place] [id number] Madison Fagan MD [place], [place] [id number] Gastroenterology [facility] Start: 05-06-2023 End: 05-06-2023 Patient encounter procedure 05/06/2023 8:30 AM EST Office Visit [address] [place], [place] [id number] Dora Kate, DO [place], [place] [id number] Rheumatology [facility] Start: 03-24-2023 End: 03-24-2023 Patient encounter procedure 03/24/2023 8:30 AM EDT Office Visit Gastroenter[address] [place], [place] [id number] Madison Fagan MD [place] [id number] [facility] Start: 02-26-2023 COVID-19 ( season) COVID-19 ( season) [facility] Start: 02-26-2023 FLU (#1) FLU (#1) [facility] Start: 12-31-2022 End: 12-31-2022 Patient encounter procedure 12/31/2022 8:30 AM EDT Office Visit [address], [address] [place], [place] [id number] Dora Kate, [place], [place] [id number] [facility] Start: 09-12-2022 Tetanus Diphtheria and Pertussis Vaccines (7 - Td or Tdap) Tetanus Diphtheria and Pertussis Vaccines (7 - Td or Tdap) [facility] Start: 02-26-2022 FLU (Season Ended) FLU (Season Ended) [facility] Start: 02-25-2022 End: 02-25-2022 Patient encounter procedure 02/25/2022 Office Visit Gastroenterology [place] [address] Gastroenterology - [place] Start: 01-20-2022 COVID-19 (4 - Booster for Pfizer series) COVID-19 (4 - Booster for Pfizer series) [facility] Start: 12-16-2021 COVID-19 (4 - Booster for Pfizer series) COVID-19 (4 - Booster for Pfizer series) [facility] Start: 08-08-2020 TB Test TB Test [facility] Start: 2019 Hepatitis B (1 of 3 - 19+ 3-dose series) Hepatitis B (1 of 3 - 19+ 3-dose series) [facility] Start: 2018 Hearing Screening Hearing Screening [facility] Start: 2018 PATH Education 18+ Years PATH Education 18+ Years [facility] Start: 10-19-2016 Hepatitis A (2 of 2 - 2-dose series) Hepatitis A (2 of 2 - 2-dose series) [facility] Start: 2016 MenB (1 of 2 - MenB 2-Dose Series Bexsero) MenB (1 of 2 - MenB 2-Dose Series Bexsero) [facility] Start: 2016 MenB (1 of 2 - MenB 2-Dose Series) MenB (1 of 2 - MenB 2-Dose Series) [facility] Start: 2015 HPV (1 - Male 3-dose series) HPV (1 - Male 3-dose series) [facility] Start: 2015 PATH Education 15-17+ Years PATH Education 15-17+ Years [facility] Start: 2015 Vision Screening Vision Screening [facility] Start: 2012 PATH Education 12-14+ Years PATH Education 12-14+ Years [facility] Start: 2012 PATH Transitional Assessment PATH Transitional Assessment [facility] Start: 2011 HPV (1 - Male 2-dose series) HPV (1 - Male 2-dose series) [facility] Start: 2003 Well Visit Well Visit [facility] Start: 2000 Hepatitis B (1 of 3 - 3-dose series) Hepatitis B (1 of 3 - 3-dose series) [facility] Albumin [Moles/volum e] in Serum or Plasma [facility] Albumin/Globulin ratio [facility] Alternaria alternata RAST [facility] Cook Islander house dust mite IgE Ab [Units/volume] in Serum [facility] Beef IgE Ab [Units/volume] in Serum [facility] Bermuda grass IgE Ab [Units/volume] in Serum [facility] Cat dander IgE Ab [Units/volume] in Serum [facility] Chocolate IgE Ab [Units/volume] in Serum [facility] Codfish IgE Ab [Units/volume] in Serum [facility] Common Ragweed IgE A b [Units/volume] in Serum [facility] Grant IgE Ab [Units/volume] in Serum [facility] Cow milk IgE Ab [Units/volume] in Serum [facility] Dog epithelium IgE A b [Units/volume] in Serum [facility] Elastase.pancreatic [Presence] in Stool [facility] Electrophoresis: [id number] [facility] Electrophoresis: rosa ma globulin [facility] house dust mite IgE Ab [Units/volume] in Serum [facility] Fat [Presence] in Stool [facility] Folate [Moles/volume ] in Serum or Plasma [facility] Food RAST [facility] Globulin measurement [facility] Hepatitis A virus Ig M Ab [Presence] in Serum [facility] Hepatitis B core antibody measurement, IgM type [facility] Hepatitis B surface antigen measurement [facility] Hepatitis C antibody measurement [facility] IgA [Mass/volume] in Serum or Plasma [facility] IgE [Units/volume] i n Serum or Plasma [facility] IgG [Mass/volume] in Serum or Plasma [facility] IgG subclass 1 [Mass/volume] in Serum [facility] IgG subclass 2 [Mass/volume] in Serum [facility] IgG subclass 3 [Mass/volume] in Serum [facility] IgG subclass 4 [Mass/volume] in Serum [facility] IgM [Mass/volume] in Serum or Plasma [facility] Kentucky blue grass IgE Ab [Units/volume] in Serum [facility] Laboratory data interpretation [facility] Lactoferrin [Presenc e] in Stool by Immunoassay [facility] Measurement of occul t blood in stool specimen using immunoassay [facility] Mouse urine proteins RAST [facility] MRI of small intestine [facility] Mycobacterium tuberculosis tuberculin stimulated gamma interferon [Presence] in Blood [facility] Neutrophil cytoplasm ic Ab.classic [Units/volume] in Serum [facility] Nucleic acid assay [facility] P-ANCA measurement [facility] Patient referral [facility] Work Phone: Peanut IgE Ab [Units/volume] in Serum [facility] Plantain (Wallisian) RAST [facility] Pork IgE Ab [Units/volume] in Serum [facility] Protein electrophore sis panel - Serum or Plasma [facility] Protein measurement [facility] End: 11-13-2021 Quantiferon TB Gold [facility] Work Phone: Comment on above: 1 Occurrences starting 11/13/2021 until 11/13/2021 End: 11-01-2023 Quantiferon TB Gold Quantiferon TB Gold Lab Timed Rheumatoid arthritis of multiple sites with negative rheumatoid factor long-term current use of 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 1 Occurrences starting 11/01/2023 until 11/01/2023 [facility] Work Phone: Comment on above: 1 Occurrences starting 11/01/2023 until 11/01/2023 End: 09-28-2024 Quantiferon TB Gold [facility] Comment on above: For lab collect this frequency defaults to the next routine lab draw time. Routine times: 0600; 1100; 1400; 1900; 2200 for 1 Occurrences starting 09/28/2024 until 09/28/2024 [place] IgE Ab [Units/volume] in Serum [facility] Shrimp IgE Ab [Units/volume] in Serum [facility] Soybean IgE Ab [Units/volume] in Serum [facility] Tissue transglutamin ase IgA Ab [Units/volume] in Serum [facility] Tuna IgE Ab [Units/volume] in Serum [facility] End: 03-30-2024 Vitamin D 1,25 dihydroxy [facility] Work Phone: Comment on above: For lab collect this frequency defaults to the next routine lab draw time. Routine times: 0600; 1100; 1400; 1900; 2200 for 1 Occurrences starting 03/30/2024 until 03/30/2024 End: 03-16-2024 Vitamin D 1,25 dihydroxy [facility] Work Phone: Comment on above: For lab collect this frequency defaults to the next routine lab draw time. Routine times: 0600; 1100; 1400; 1900; 2200 for 1 Occurrences starting 03/16/2024 until 03/16/2024 End: 09-28-2024 Vitamin D 1,25 dihydroxy [facility] Work Phone: Comment on above: For lab collect this frequency defaults to the next routine lab draw time. Routine times: 0600; 1100; 1400; 1900; 2200 for 1 Occurrences starting 09/28/2024 until 09/28/2024 Wheat IgE Ab [Units/volume] in Serum [facility] [place] IgE Ab [Units/volume] in Serum [facility] [place] IgE Ab [Units/volume] in Serum [facility] Whole Egg IgE Ab [Units/volume] in Serum [facility] Immunizations Immunization Date Immunization Notes Care Provider Chencho nielsen 03-16-2024 influenza, seasonal, injectable, preservative free Misc Doc [facility] 05-27-2023 influenza, injectabl e, quadrivalent, preservative free Dora Proteopure DO Work Phone: [facility] 04-16-2022 influenza, injectabl e, quadrivalent, preservative free Dora Proteopure DO Work Phone: [facility] 06-01-2019 influenza, injectabl e, quadrivalent, preservative free Dora Proteopure DO Work Phone: [facility] 04-19-2018 influenza, injectabl e, quadrivalent, preservative free Dora Proteopure DO Work Phone: [facility] 07-22-2017 influenza, injectabl e, quadrivalent, preservative free Dora Kate DO Work Phone: [facility] 04-20-2016 hepatitis A vaccine, pediatric/adolescent dosage, 2 dose schedule Dora Kate DO Work Phone: [facility] 04-08-2015 Influenza Quadrivalent Rashaun Kate DO Work Phone: [facility] 03-20-2013 influenza virus vaccine, whole virus Dora Kate DO Work Phone: [facility] 09-12-2012 tetanus toxoid, redu eber diphtheria toxoid, and acellular pertussis vaccine, adsorbed Dora Kate DO Work Phone: [facility] 03-21-2012 influenza virus vaccine, unspecified formulation Dora Kate DO Work Phone: [facility] 04-08-2011 influenza virus vaccine, unspecified formulation Dora Kate DO Work Phone: [facility] 05-09-2010 influenza virus vaccine, unspecified formulation Dora Kate DO Work Phone: [facility] 05-12-2009 novel [id number], all formulations Dora Kate DO Work Phone: [facility] 04-11-2009 novel [id number], all formulations Dora Kate DO Work Phone: [facility] 03-28-2009 influenza virus vaccine, unspecified formulation Dora Kate DO Work Phone: [facility] 10-11-2006 varicella virus vaccine Jennifer Kate DO Work Phone: [facility] 08-31-2005 diphtheria, tetanus toxoids and acellular pertussis vaccine Dora Kate DO Work Phone: [facility] 08-31-2005 measles, mumps and rubella virus vaccine Dora Kate DO Work Phone: [facility] 08-31-2005 poliovirus vaccine, inactivated Dora Kate DO Work Phone: [facility] 03-06-2002 diphtheria, tetanus toxoids and acellular pertussis vaccine Dora Kate DO Work Phone: [facility] 02-27-2002 poliovirus vaccine, inactivated Dora Kate DO Work Phone: [facility] 11-24-2001 measles, mumps and rubella virus vaccine Dora Kate DO Work Phone: [facility] 08-25-2001 pneumococcal conjuga te vaccine, 7 valent Dora Kate DO Work Phone: [facility] 08-25-2001 varicella virus vaccine Jennifer Kate DO Work Phone: [facility] 05-24-2001 pneumococcal conjuga te vaccine, 7 valent Dora Kate DO Work Phone: [facility] 03-28-2001 diphtheria, tetanus toxoids and acellular pertussis vaccine Dora Kate DO Work Phone: [facility] 01-25-2001 diphtheria, tetanus toxoids and acellular pertussis vaccine Dora Kate DO Work Phone: [facility] 01-25-2001 pneumococcal conjuga te vaccine, 7 valent Dora Kate DO Work Phone: [facility] 01-25-2001 poliovirus vaccine, inactivated Dora Kate DO Work Phone: [facility] 2000 diphtheria, tetanus toxoids and acellular pertussis vaccine Dora Kate DO Work Phone: [facility] 2000 pneumococcal conjuga te vaccine, 7 valent Dora Kate DO Work Phone: [facility] 2000 poliovirus vaccine, inactivated Dora Kate DO Work Phone: [facility] Payers Date Payer Category Payer Self-pay 2022 Medicaid [id number] 2011 Unknown 2000 Unknown [id number] 2.16. [id number] 2000 Unknown [id number] 2.16. [id number] 2000 Unknown [id number] 2.16. [id number] 2000 Unknown [id number] 2.16. [id number] 2000 Unknown [id number] 2.16. [id number] 2000 Unknown [id number] 2.16. [id number] 2000 Unknown [id number] 2.16. [id number] 2000 Unknown [id number] 2.16. [id number] 2000 Unknown [id number] 2.16. [id number] 2000 Unknown [id number] 2.16. [id number] 2000 Unknown [id number] 2.16. [id number] 2000 Unknown [id number] 2.16. [id number] Unknown [id number] 2.16. [id number] Unknown [id number] 2.16.8 [id number] Unknown [id number] 2.16. [id number] Unknown [id number] 2.16.8 [id number] Unknown [id number] 2.16.8 [id number] Unknown [id number] 2.16.8 [id number] Unknown [id number] 2.16.8 [id number] Social History Date Type Detail Facility Start: 11-06-2021 End: 10-10-2024 Tobacco smoking status NHIS Never smoked tobacco [facility] History of tobacco use Cigarette Smoker [facility] Start: 11-06-2021 End: 02-17-2024 Cigarette pack-years [facility] Start: 11-06-2021 End: 10-14-2023 Tobacco use and exposure Smokeless tobacco non-user [facility] Start: 11-06-2021 End: 10-12-2024 Alcohol intake Current non-drinker of alcohol (finding) [facility] Start: 04-06-2019 History SDOH Alcohol Comment denies [facility] Start: 11-06-2021 Tobacco Comment pt denies- mom smokes outside [facility] Start: 2000 Sex Assigned At Not on file A [facility] Start: 11-03-2021 End: 11-13-2021 Exposure to SARS-CoV-2 (event) Not sure [facility] History of tobacco use Passive smoker [facility] Start: 08-27-2022 End: 02-17-2024 Tobacco use panel [facility] Start: 09-27-2024 End: 10-16-2024 Sex Male (finding) [facility] Start: 2000 Sex Assigned At Male [facility] NEGATED: Highlighted rowStart: BELKISF History of tobacco use Passive smoker [facility] Goals Date Patient Goal Desired Activity /State Functional Status Date Assessment Result Facility 08-15-2019 Are you blind, or do you have serious difficulty seeing, even when wearing glasses No 08/15/2019 8:55 AM Margret Valentine, RN No [facility] Mental Status Date Assessment Result Facility 10-16-2024 Cognitive function Voice/Name [facility] Work Phone: Clinical Notes 11-13-2021 to 10-16-2024 Note Date & Type Note Facility 10-16-[address] [facility] 10-16-[address] [facility] 10-16-[address] [facility] 10-16-[address] [facility] 10-16-2024 Consult note Note Date/Time October 16, 2024 10:33am [facility] Medical Records Department [address] [place] [address] Pre-Anesthesia Evaluation 10/16/24 1032 MR#: [id number] Acct: [id number] Name: [facility] RICE Rep #:[id number] : 2000 24 From: Davin Sandhu MD PCP: Nick Olson [facility] Status:REG SD C Y Race: C Location: [place] [address] ASA Classification* ASA Classification ASA Classification: 2 Assessment & Plan Anesthesia* Anesthesia Assessment Anesthesia Assessment: Discussed sedation and/or anesthesia options, risks, benefits, and alternatives with patient/parents/legal guardian/POA. Questions invited. The patient/parents/legal guardian/POA seems to understand and agrees to proceedwith anesthesia plan. Reviewed the physical assessment, medical history, allergy history and patient home medications list prior to surgery/procedure/anesthetic and documented any changes. Performed airway and anesthesia risk assessments. Anesthesia Type Anesthesia Type: MAC Anesthesia Focused Assessment* Airway Assessment Mouth opens: >3 cm Mallampati Score: II Focused Labs Anesthesia Preop lab: CBC WBC 4.9 K/mm3 (4.4-11.0) 09/25/24 09:51 09/25/24 RBC 5.34 M/mm3 (4.6-6.2) 09/25/24 09:51 09/25/24 Hgb 16.2 g/dL (13.0-16.5) 09/25/24 09:51 09/25/24 Hct 45.5 % (40-54) 09/25/24 09:51 09/25/24 Plt Count 184 K/mm3 (150-450) 09/25/24 09:51 09/25/24 CHEMISTRY Potassium 3.9 mmol/L (3.3-5.1) 09/25/24 09:51 09/25/24 Sodium 138 mmol/L (133-145) 09/25/24 09:51 09/25/24 Magnesium 2.2 mg/dL (1.5-2.2) 09/25/24 09:51 09/25/24 Phosphorus 1.7 mg/dL (2.7-4.5) L 09/25/24 09:51 09/25/24 BUN 12 mg/dL (4-19) 09/25/24 09:51 09/25/24 Creatinine 0.97 mg/dL (0.70-1.20) 09/25/24 09:51 09/25/24 Glucose 86 mg/dL (70-99) 09/25/24 09:51 09/25/24 TSH 0.283 uIU/mL (0.300-4.200) L 09/25/24 09:51 COAG Pre-Assessment Diagnosis/Proposed Procedure Planned Operative Procedure(s): CSCOPE/EGD Anesthesia History 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 When Was Last Pacemaker Check QUESTION #4 FULL TEXT: You/Your Family Experience fever (hyperthermia) with Anesthesia Last Oral Intake Last Oral intake: Last Oral Intake NPO since Meds taken in AM with sips of water? 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 Has anyone observed you stop No 10/10/24 16:27 breathing during sleep? STOP Results Negative 10/10/24 16:27 QUESTION #5 FULL TEXT : Do you snore loudly (louder than talking or can be heard through closed doors)? 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 Specify any problems Hx of Preganancy in last 3 N/A 10/10/24 16:27 Months Nurse Filling Out Transfusion DSCHRIBER 10/10/24 16:27 & Questions: Date: 10/10/24 10/10/24 16:27 Time: 16:28 10/10/24 16:27 Patient unable to answer at this time (ie. confused, unrespo /Reproduction History /Reproductive History - supervisor cigar processing: /Reproductive Hx- supervisor cigar processing Hx Now No 10/10/24 16:27 Gestational Age (in weeks): EDC: Hx Hx Para Hx Section SAB No 10/10/24 16:27 PFSH Medical History History of steroid therapy Dietary restriction History of colitis History of Crohn's disease History of IBS Gastric reflux Non-smoker Hx of fracture of arm History of ganglion cyst Rheumatoid arthritis Home Medications ?Medication ?Instructions ?Recorded ?Last Taken ?Type cetirizine 10 mg capsule (Zyrtec) 10 mg PO QDAY Unknown History cholecalciferol (vitamin D3) 1,250 1,250 mcg PO QWEEK 09/25/24 Unknown History mcg (50,000 unit) capsule mesalamine 0.375 gram 1.125 g PO BID 09/25/24 Unkn own History capsule,extended release 24 hr nabumetone 500 mg tablet 1,000 mg PO QDAY 09/25/24 Un known History omeprazole 20 mg capsule,delayed 20 mg PO QDAY 5 Unknown History release promethazine 12.5 mg tablet 12.5 mg PO Q6H PRN nausea and 09/25/24 Unknown History vomiting rituximab 10 mg/mL See Rx Instructions .Route . COMPLEX 09/25/24 Unknown History concentrate,intravenous ustekinumab 90 mg/mL subcutaneous 90 mg subcut Q5W Unknown History syringe (Stelara) Allergy/AdvReac Type Severity Reaction Status Date / Time No Known Allergies Allergy Verified 10/10/24 16:25 Family History Sister Anxiety Mother Arthritis Grandmother Arthritis Autoimmune disorder Hypertension Hyperlipemia Grandfather COPD (chronic obstructive pulmonary disease) Aunt Breast cancer Depression Surgical History History of shoulder surgery History of esophagogastroduodenoscopy (EGD) Hx of colonoscopy Social History Smoking Status: Never smoker alcohol intake: never substance use type: marijuana what type of physical activity do you participate in: other details: physical therapy Review of Systems (Anesthesia) ROS Narrative System reviewed and no additional complaints, except as documented. 10/16/24 1033 <Electronically signed by Davin Sandhu MD > Date _ Davin Lewis Signature: Date CC: ~ Signed [facility] Work Phone: 1(634) 326-949604-21-2025 Procedure note [facility] Medical Records Department [address] [place] [address] Operative Report - CC Letter MR#: [id number] Acct: [id number] Name: MC RICE Rep #:[id number] : 2000 24 From: Hunter Ceja DO PCP: FLORIDALMA Vasquez Status:REG SD C 10/16/2024 Floridalma Vasquez Re : Upper GI endoscopy procedure for Mc Rice Lj Olson This procedure was performed on Wednesday, October 16, 2024. My impressions and recommendations are as follows: Impressions : - Normal esophagus. - Erythematous mucosa in the gastric body. Biopsied. - Erythematous duodenopathy. Biopsied. Recommendations : - Discharge patient to home. - Resume previous diet. - Continue present medications. - Await pathology results. My findings are described in the full procedure note, which is enclosed. If I can be of further assistance, please feel free to contact me at . Sincerely, Hunter Ceja DO 10/16/2024 12:21:14 PM This report has been signed electronically. 10/16/24 1221 Date _ Hunter Back Signature: Date (if indicated) CC: FLORIDALMA Olson; Hunter Ceja DO ~ Date Dictated: 10/16/24 1143 Date Transcribed: Product Development Ecologist: RF Signed [facility]04-21-2025 Procedure note [facility] Medical Records Department [address] [place] [address] EGD Report MR#: [id number] Acct: [id number] Name: MC RICE Rep #:[id number] : 2000 24 From: Hunter Ceja DO PCP: FLORIDALMA Vasquez Status:REG SD C Patient Name: Mc Rice Procedure Date: 10/16/2024 11:43 AM Date of : 2000 Age: 24 Procedure: Upper GI endoscopy Indications: Epigastric abdominal pain, Functional Dyspepsia Providers: Hunter Ceja DO Referring MD: Floridalma Vasquez Medicines: Monitored Anesthesia Care Patient Profile: This is a 24 year old male. Refer to note in patient chart for documentation of history and physical. Patient has symptoms of chronic epigastric abdominal pain. Complications: No immediate complications. Procedure: Pre-Anesthesia Assessment: - Prior to the procedure, a History and Physical was performed, and patient medications and allergies were reviewed. The patient is competent. The risks and benefits of the procedure and the sedation options and risks were discussed with the patient. All questions were answered and informed consent was obtained. Patient identification and proposed procedure were verified by the physician in the pre-procedure area. Mental Status Examination: alert and oriented. Airway Examination: normal oropharyngeal airway and neck mobility. Respiratory Examination: clear to auscultation. CV Examination: normal. Prophylactic Antibiotics: The patient does not require prophylactic antibiotics. Prior Anticoagulants: The patient has taken no anticoagulant or antiplatelet agents except for NSAID medication. ASA Grade Assessment: II - A patient with mild systemic disease. After reviewing the risks and benefits, the patient was deemed in satisfactory condition to undergo the procedure. The anesthesia plan was to use monitored anesthesia care (MAC). Immediately prior to administration of medications, the patient was re-assessed for adequacy to receive sedatives. The heart rate, respiratory rate, oxygen saturations, blood pressure, adequacy of pulmonary ventilation, and response to care were monitored throughout the procedure. The physical status of the patient was re-assessed after the procedure. After obtaining informed consent, the endoscope was passed under direct vision. Throughout the procedure, the patient's blood pressure, pulse, and oxygen saturations were monitored continuously. The Colonoscope was introduced through the mouth, and advanced to the third part of the duodenum. Small bowel enteroscopy was deemed necessary. The upper GI endoscopy was accomplished without difficulty. The patient tolerated the procedure well. Scope In: 11:50:15 AM Scope Out: 11:53:20 AM Total Procedure Duration Time 0 hours 3 minutes 5 seconds Findings: The examined esophagus was normal. Patchy mildly erythematous mucosa without bleeding was found in the gastric body. Biopsies were taken with a cold forceps for histology. Verification of patient identification for the specimen was done. Estimated blood loss was minimal. Biopsies were taken with a cold forceps for Helicobacter pylori testing. Verification of patient identification for the specimen was done. Estimated blood loss was minimal. Patchy mildly erythematous mucosa without active bleeding and with no stigmata of bleeding was found in the duodenal bulb and in the second portion of the duodenum. Biopsies were taken with a cold forceps for histology. Verification of patient identification for the specimen was done. Estimated blood loss was minimal. Impression: - Normal esophagus. - Erythematous mucosa in the gastric body. Biopsied. - Erythematous duodenopathy. Biopsied. Recommendation: - Discharge patient to home. - Resume previous diet. - Continue present medications. - Await pathology results. Procedure Code(s): --- Professional --- 21683, Small intestinal endoscopy, enteroscopy beyond second portion of duodenum, not including ileum; with biopsy, single or multiple CPT copyright 2021 [employer]. All rights reserved. The codes documented in this report are preliminary and upon private client advisor review may be revised to meet current compliance requirements. Hunter Ceja DO 10/16/2024 12:21:14 PM This report has been signed electronically. Number of Addenda: 0 Note Initiated On: 10/16/2024 11:43 AM 10/16/24 1221 Date _ Hunter Back Signature: Date (if indicated) CC: LIVE OUT NANNY-C Nick Olson; Hunter Ceja DO ~ Date Dictated: 10/16/24 1143 Date Transcribed: Product Development Ecologist: RF Signed [facility]04-21-2025 History and physical note [facility] Medical Records Department [address] [place] [address] History & Physical Exam 10/16/24 1132 MR#: [id number] Acct: [id number] Name: MC RICE Rep #:[id number] : 2000 24 From: Hunter Ceja DO PCP: FLORIDALMA Vasquez Status:REG SD C Location: [place] [address] HPI - General General Date of Admission: 10/16/24 Date of Service: 10/16/24 Chief Complaint: abdominal pain and crohn's disease HPI Narrative MC RICE, is a 24 M who presents for the evaluation of his crohns disease. *[facility] established 09.25.24 pt presents today to transfer care from [facility]. Pt has a long history of IBD and RA. Pt reports he was diagnosed with RA when he was 3 and is taking Rituximab infusions for this. Pt was diagnosed with IBD around 2019 and is on Mesalamine and Stelara Q5W. Pt reports his last colonoscopy was [id number]. Reports he has "flares" every few months. Ptreports daily nausea. States that he has alternating bowel movements and states that when he gets constipated that usually means he is about to have a flare. [facility] Medical History History of steroid therapy Dietary restriction History of colitis History of Crohn's disease History of IBS Gastric reflux Non-smoker Hx of fracture of arm History of ganglion cyst Rheumatoid arthritis Home Medications ?Medication ?Instructions ?Recorded ?Last Taken ?Type cetirizine 10 mg capsule (Zyrtec) 10 mg PO QDAY Unknown History cholecalciferol (vitamin D3) 1,250 1,250 mcg PO QWEEK 09/25/24 Unknown History mcg (50,000 unit) capsule mesalamine 0.375 gram 1.125 g PO BID 09/25/242 07/22 History capsule,extended release 24 hr nabumetone 500 mg tablet 1,000 mg PO QDAY 09/25/24 Un known History omeprazole 20 mg capsule,delayed 20 mg PO QDAY 5 Unknown History release promethazine 12.5 mg tablet 12.5 mg PO Q6H PRN nausea and 09/25/24 Unknown History vomiting rituximab 10 mg/mL See Rx Instructions .Route . COMPLEX 09/25/24 Unknown History concentrate,intravenous ustekinumab 90 mg/mL subcutaneous 90 mg subcut Q5W Unknown History syringe (Stelara) Allergy/AdvReac Type Severity Reaction Status Date / Time No Known Allergies Allergy Verified 10/16/24 10:42 Family History Sister Anxiety Mother Arthritis Grandmother Arthritis Autoimmune disorder Hypertension Hyperlipemia Grandfather COPD (chronic obstructive pulmonary disease) Aunt Breast cancer Depression Surgical History History of shoulder surgery History of esophagogastroduodenoscopy (EGD) Hx of colonoscopy Social History Smoking Status: Never smoker alcohol intake: never substance use type: marijuana what type of physical activity do you participate in: other details: physical therapy ROS Constitutional Constitutional: Denies fatigue, fever(s), poor appetite, weight gain or weight loss Gastrointestinal Gastrointestinal: Denies belching, bloating, change in bowel habits, change in stool character, chewing difficulty, coffee ground emesis, constipation, cramping, diarrhea, dyspepsia, dysphagia, earlysatiety, excessive flatus, fecalincontinence, heartburn, hematemesis, hematochezia, hemorrhoids, loose stools, melena, nausea, odynophagia, rectal bleeding, tenesmus, vomiting or weight changes Vital Signs Vital Signs Vital Signs: 10/16/24 10:45 10/16/24 10:45 Temperature 98.7 F Temperature Source Temporal Pulse Rate 117 H Respiratory Rate 16 Respiratory Pattern Normal Blood Pressure 118/87 H Blood Pressure Mean 97 Blood Pressure Source Monitor Blood Pressure Position Sitting Blood Pressure Location Left Arm Pulse Ox 98 Oxygen Delivery Method Room Air Weight Weight: 171 lb 15.369 oz Body Mass Index (BMI) 22.6 Physical Exam Const alert, oriented x3, no apparent distress and healthy appearing General Appearance: cooperative GI normal to inspection, nondistended, normoactive bowel sounds, soft to palpation,non-tender and non-distended Percussion: normal to percussion Rectal Exam: deferred Assessment & Plan Assessment/Plan (1) Crohn disease: PLAN: Assessment and Plan Assessment and Plan (1) Crohn disease: Status: Acute Plan: Mc is a pleasant 24-year-old with a longstanding history of complicated rheumatoid arthritis which was diagnosed at the age of 3. He is currently on rituximab therapy every 6 months. 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 As per his mother and the patient he has been on biologic therapy and 5-ASA's. As per his mother he has been really struggling with weight loss and maintaining his weight. He stays away from mostly all fiber containing foods. He is not having any rashes, lesion, jaundice, headaches, fatigue and is currently having 1 bowel movement a day. His last ESR was 6 and his CRP was 3. He has no family history of inflammatory bowel disease. He has not had any abdominal surgeries. He has but never been diagnosed with obstruction. He has not beendiagnosed with a fistula. He does not have any prior blood per rectum. He does not use any street drugs. Currently at this time he is on rituximab for his rheumatoid arthritis. He alsogets intermittent steroids that infusion. He is on Stelara every 5 weeks for his inflammatory bowel disease. He has not had a colonoscopy since 2020. Patient says he enterography is in the past. He has not been diagnosedof any vitamin deficiencies or anemia. Recommend: -Check ESR, CRP, LDH, CBC with differential, CMP -Stool for fecal lactoferrin, fecal elastase, stool for occult blood ,fecal calprotectin -Check Stelara levels -Request office moves previous workups by rheumatology and a his previous safety and health consultant -An upper and lower endoscopy to evaluate his upper lower GI tract for inflammatory bowel disease -MR enterography 10/16/24 1134 Cosigner Signature (if applicable): CC: LIVE OUT NANNY-C Nick Olson; Hunter Ceja DO~ Signed [facility]04-21-2025 [facility] Medical Records Department [address] [place] [address] History Physical Exam 10/16/24 1132 MR#: [id number] Acct: [id number] Name: MC RICE Rep #: [id number] : 2000 24 From: Hunter Ceja DO PCP: FLORIDALMA Vasquez [place] [facility] [place] [address]1 HPI - General General Date of Admission: 10/16/24 Date of Service: 10/16/24 Chief Complaint: abdominal pain and crohn's disease HPI Narrative MC RICE, is a 24 M who presents for the evaluation of his crohns disease. *[facility] established 09.25.24 pt presents today to transfer care from [facility]. Pt has a long history of IBD and RA. Pt reports he was diagnosed with RA when he was 3 and is taking Rituximab infusions for this. Pt was diagnosed with IBD around 2019 and is on Mesalamine and Stelara Q5W. Pt reports his last colonoscopy was [id number]. Reports he has "flares" every few months. Pt reports daily nausea. States that he has alternating bowel movements and states that when he gets constipated that usually means he is about to have a flare. [facility] Medical History History of steroid therapy Dietary restriction History of colitis History of Crohn's disease History of IBS Gastric reflux Non-smoker Hx of fracture of arm History of ganglion cyst Rheumatoid arthritis Home Medications ???Medication ???Instructions ???Recorded ???Last Taken ???Type cetirizine 10 mg capsule (Zyrtec) 10 mg PO QDAY 09/25/24 Unknown Hi story cholecalciferol (vitamin D3) 1,250 1,250 mcg PO QWEEK 09/25/24 Unkn own History mcg (50,000 unit) capsule mesalamine 0.375 gram 1.125 g PO BID 09/25/24 10/16/24 H istory capsule,extended release 24 hr nabumetone 500 mg tablet 1,000 mg PO QDAY 09/25/24 Unknown History omeprazole 20 mg capsule,delayed 20 mg PO QDAY 09/25/24 Unknown His tory release promethazine 12.5 mg tablet 12.5 mg PO Q6H PRN nausea and 08/28 07/22 Unknown History vomiting rituximab 10 mg/mL See Rx Instructions .Route .COMPLE X 09/25/24 Unknown History concentrate,intravenous ustekinumab 90 mg/mL subcutaneous 90 mg subcut Q5W 09/25/24 Unknown History syringe (Stelara) Allergy/AdvReac Type Severity Reaction Status Date / Time No Known Allergies Allergy Verified 10/16/24 10:42 Family History Sister Anxiety Mother Arthritis Grandmother Arthritis Autoimmune disorder Hypertension Hyperlipemia Grandfather COPD (chronic obstructive pulmonary disease) Aunt Breast cancer Depression Surgical History History of shoulder surgery History of esophagogastroduodenoscopy (EGD) Hx of colonoscopy Social History Smoking Status: Never smoker alcohol intake: never substance use type: marijuana what type of physical activity do you participate in: other details: physical therapy ROS Constitutional Constitutional: Denies fatigue, fever(s), poor appetite, weight gain or weight loss Gastrointestinal Gastrointestinal: Denies belching, bloating, change in bowel habits, change in stool character, chewing difficulty, coffee ground emesis, constipation, cramping, diarrhea, dyspepsia, dysphagia, early satiety, excessive flatus, fecal incontinence, heartburn, hematemesis, hematochezia, hemorrhoids, loose stools, melena, nausea, odynophagia, rectal bleeding, tenesmus, vomiting or weight changes Vital Signs Vital Signs Vital Signs: 10/16/24 10:45 10/16/24 10:45 Temperature 98.7 F Temperature Source Temporal Pulse Rate 117 H Respiratory Rate 16 Respiratory Pattern Normal Blood Pressure 118/87 H Blood Pressure Mean 97 Blood Pressure Source Monitor Blood Pressure Position Sitting Blood Pressure Location Left Arm Pulse Ox 98 Oxygen Delivery Method Room Air Weight Weight: 171 lb 15.369 oz Body Mass Index (BMI) 22.6 Physical Exam Const alert, oriented x3, no apparent distress and healthy appearing General Appearance: cooperative GI normal to inspection, nondistended, normoactive bowel sounds, soft to palpation, non-tender and non- distended Percussion: normal to percussion Rectal Exam: deferred Assessment Plan Assessment/Plan (1) Crohn disease: PLAN: Assessment and Plan Assessment and Plan (1) Crohn disease: Status: Acute Plan: Mc is a pleasant 24-year-old with a longstanding history of complicated rheumatoid arthritis which was diagnosed at the age of 3. He is currently on rituximab therapy every 6 months. 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04-21-2025 Consult note [facility] Medical Records Department [address] [place] [address] Pre-Anesthesia Evaluation 10/16/24 1032 MR#: [id number] Acct: [id number] Name: MC RICE Rep #:[id number] : 2000 24 From: Davin Sandhu MD PCP: Nick Olson NP-C Status:REG SD C Y Race: C Location: [place] [address] ASA Classification* ASA Classification ASA Classification: 2 Assessment & Plan Anesthesia* Anesthesia Assessment Anesthesia Assessment: Discussed sedation and/or anesthesia options, risks, benefits, and alternatives with patient/parents/legal guardian/POA. Questions invited. The patient/parents/legal guardian/POA seems to understand and agrees to proceedwith anesthesia plan. Reviewed the physical assessment, medical history, allergy history and patient home medications list prior to surgery/procedure/anesthetic and documented any changes. Performed airway and anesthesia risk assessments. Anesthesia Type Anesthesia Type: MAC Anesthesia Focused Assessment* Airway Assessment Mouth opens: >3 cm Mallampati Score: II Focused Labs Anesthesia Preop lab: CBC WBC 4.9 K/mm3 (4.4-11.0) 09/25/24 09:51 09/25/24 RBC 5.34 M/mm3 (4.6-6.2) 09/25/24 09:51 09/25/24 Hgb 16.2 g/dL (13.0-16.5) 09/25/24 09:51 09/25/24 Hct 45.5 % (40-54) 09/25/24 09:51 09/25/24 Plt Count 184 K/mm3 (150-450) 09/25/24 09:51 09/25/24 CHEMISTRY Potassium 3.9 mmol/L (3.3-5.1) 09/25/24 09:51 09/25/24 Sodium 138 mmol/L (133-145) 09/25/24 09:51 09/25/24 Magnesium 2.2 mg/dL (1.5-2.2) 09/25/24 09:51 09/25/24 Phosphorus 1.7 mg/dL (2.7-4.5) L 09/25/24 09:51 09/25/24 BUN 12 mg/dL (4-19) 09/25/24 09:51 09/25/24 Creatinine 0.97 mg/dL (0.70-1.20) 09/25/24 09:51 09/25/24 Glucose 86 mg/dL (70-99) 09/25/24 09:51 09/25/24 TSH 0.283 uIU/mL (0.300-4.200) L 09/25/24 09:51 COAG Pre-Assessment Diagnosis/Proposed Procedure Planned Operative Procedure(s): CSCOPE/EGD Anesthesia History 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 When Was Last Pacemaker Check QUESTION #4 FULL TEXT: You/Your Family Experience fever (hyperthermia) with Anesthesia Last Oral Intake Last Oral intake: Last Oral Intake NPO since Meds taken in AM with sips of water? 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 Has anyone observed you stop No 10/10/24 16:27 breathing during sleep? STOP Results Negative 10/10/24 16:27 QUESTION #5 FULL TEXT : Do you snore loudly (louder than talking or can be heard through closeddoors)? 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 Specify any problems Hx of Preganancy in last 3 N/A 10/10/24 16:27 Months Nurse Filling Out Transfusion DSCHRIBER 10/10/24 16:27 & Questions: Date: 10/10/24 10/10/24 16:27 Time: 16:28 10/10/24 16:27 Patient unable to answer at this time (ie. confused, unrespo /Reproduction History /Reproductive History - supervisor cigar processing: /Reproductive Hx- supervisor cigar processing Hx Now No 10/10/24 16:27 Gestational Age (in weeks): EDC: Hx Hx Para Hx Section SAB No 10/10/24 16:27 PFSH Medical History History of steroid therapy Dietary restriction History of colitis History of Crohn's disease History of IBS Gastric reflux Non-smoker Hx of fracture of arm History of ganglion cyst Rheumatoid arthritis Home Medications ?Medication ?Instructions ?Recorded ?Last Taken ?Type cetirizine 10 mg capsule (Zyrtec) 10 mg PO QDAY Unknown History cholecalciferol (vitamin D3) 1,250 1,250 mcg PO QWEEK 09/25/24 Unknown History mcg (50,000 unit) capsule mesalamine 0.375 gram 1.125 g PO BID 09/25/24 Unkn own History capsule,extended release 24 hr nabumetone 500 mg tablet 1,000 mg PO QDAY 09/25/24 Un known History omeprazole 20 mg capsule,delayed 20 mg PO QDAY 5 Unknown History release promethazine 12.5 mg tablet 12.5 mg PO Q6H PRN nausea and 09/25/24 Unknown History vomiting rituximab 10 mg/mL See Rx Instructions .Route . COMPLEX 09/25/24 Unknown History concentrate,intravenous ustekinumab 90 mg/mL subcutaneous 90 mg subcut Q5W Unknown History syringe (Stelara) Allergy/AdvReac Type Severity Reaction Status Date / Time No Known Allergies Allergy Verified 10/10/24 16:25 Family History Sister Anxiety Mother Arthritis Grandmother Arthritis Autoimmune disorder Hypertension Hyperlipemia Grandfather COPD (chronic obstructive pulmonary disease) Aunt Breast cancer Depression Surgical History History of shoulder surgery History of esophagogastroduodenoscopy (EGD) Hx of colonoscopy Social History Smoking Status: Never smoker alcohol intake: never substance use type: marijuana what type of physical activity do you participate in: other details: physical therapy Review of Systems (Anesthesia) ROS Narrative System reviewed and no additional complaints, except as documented. 10/16/24 1033 > Date _ Davin Lewis Signature: Date CC: ~ Signed [facility]04-17-2025 Miscellaneous Notes* Nursing - Alina Snow RN - 10/12/2024 8:00 AM EDT Patient present for his Ruxience infusion. Denies of any signs and symptoms of recent illness or infection. Patient expresses understanding of signs and symptoms of infection, side effects of medication, and how/when to contact doctor with problems and concerns. Denies any signs and symptoms of reaction post ruxience infusion * Nursing - Alina Snow RN - 10/12/2024 8:00 AM EDT Patient discharged home in stable condition with Mother. Mother and patient verbalized understanding of d/c instructions. Future appointments given to patient. * Plan of Care - Alina Snow RN - 10/12/2024 8:00 AM EDT Problem: Anxiety, Patient/Family Goal: Able to effectively manage anxiety response Description: REMINDER(s):Coping.Distraction therapy.Spirituality/ Uatsdin/ Alexandrea.Social support. Outcome: Ongoing Problem: Falls, Risk of Goal: Absence of falls Outcome: Ongoing Problem: Pain - Acute Description: Presume pain is associated with diagnostic tests, diseases, infections, injuries, and surgeries. Goal: Reduced pain sensation Outcome: Ongoing documented in this encounter[facility]04-17-[facility]25 Nurse Note* Nursing - Alina Snow RN - 10/12/2024 8:00 AM EDT Patient present for his Ruxience infusion. Denies of any signs and symptoms of recent illness or infection. Patient expresses understanding of signs and symptoms of infection, side effects of medication, and how/when to contact doctor with problems and concerns. Denies any signs and symptoms of reaction post ruxience infusion [facility]04-17-2025 Nurse Note* Nursing - Alina Snow RN - 10/12/2024 8:00 AM EDT Patient discharged home in stable condition with Mother. Mother and patient verbalized understanding of d/c instructions. Future appointments given to patient. [facility]04-17-2025 Plan of care note* Plan of Care - Alina Snow RN - 10/12/2024 8:00 AM EDT Problem: Anxiety, Patient/Family Goal: Able to effectively manage anxiety response Description: REMINDER(s):Coping.Distraction therapy.Spirituality/ Uatsdin/ Alexandrea.Social support. Outcome: Ongoing Problem: Falls, Risk of Goal: Absence of falls Outcome: Ongoing Problem: Pain - Acute Description: Presume pain is associated with diagnostic tests, diseases, infections, injuries, and surgeries. Goal: Reduced pain sensation Outcome: Ongoing [facility]04-03-2025 Nurse Note* Nursing - Penny Little RN - 09/28/2024 2:38 PM EDT Pt discharged home in stable condition with Mother. Mother and patient verbalized understanding of d/c instructions. Future appointments given to patient. [facility]04-03-2025 Miscellaneous Notes* Penny Hardy RN - 09/28/2024 2:38 PM EDT Pt discharged home in stable condition with Mother. Mother and patient verbalized understanding of d/c instructions. Future appointments given to patient. * Penny Hardy RN - 09/28/2024 9:00 AM EDT Patient present for his Ruxience infusion. Denies of any signs and symptoms of infection. Patient and parent express understanding of signs and symptoms of infection, side effects of medication, and how/when to contact doctor with problems and concerns. Denies any signs and symptoms of reaction post ruxience infusion. Pt c/o pain 5/10 today to L shoulder and wrist. documented in this encounterUK [facility]04-03-2025 History of Present illness Narrative* Alicia Bedolla, FELIPE-MANAGER FRONT OFFICE - 09/28/2024 9:00 AM EDT Infusion Center Progress Note Date Of Service: 09/28/2024 Patient: Mc Rice : 2000 Age:24 y.o. Weight/Height: Vitals: 09/28/24 0855 Weight: 80.7 kg Height: (!) 184 cm Allergies: Allergies[1] Chief Complaint Patient presents with Infusion Infusion Therapy Ordering Provider: Dora Kate DO Subjective: Mc Rice is a 24 y.o. male with a history of JRA who presents today for his scheduled Ruxience infusion. He is accompanied by his mother who report no recent illnesses or disease related concerns. Past Medical and Past Surgical History: Past Medical History: Diagnosis Date Dislocation, shoulder 04/06/2016 JRA (juvenile rheumatoid arthritis) Past Surgical History: Procedure Laterality Date COLONOSCOPY N/A 04/11/2019 COLONOSCOPY + biopsies performed by Madison Fagan MD at [facility] OR ESOPHAGOSCOPY N/A 11/24/2019 ENDOSCOPY (UPPER AND COLONOSCOPY) + biopsies performed by Remy Baptiste MD at [facility] OR ORTHOPEDIC SURGERY MI ANESTH,UGI ENDOSCOPY SHOULDER SURGERY Left UPPER GASTROINTESTINAL ENDOSCOPY N/A 04/11/2019 ENDOSCOPY UPPER (FLEXIBLE) + biopsies performed by Madison Fagan MD at [facility] OR WRIST GANGLION EXCISION Left WRIST SURGERY Right Current Medications: Current Medications[2] Objective: Vitals: 09/28/24 1115 09/28/24 1155 09/28/24 1220 BP: 121/71 118/73 119/68 Pulse: 67 66 72 Resp: 16 16 16 Temp: 36.3 C (97.3 F) 36.5 C (97.7 F) 36.6 C (97.9 F) SpO2: 99% 100% 100% Review of Systems: As noted above Physical Exam: General: The patient is well-kept and well-nourished. Respiratory: Respirations are easy and non-labored. Extremities: Moves all extremities purposefully. Neurologic: Awake and Alert. Baseline neurological status. Data Review: Labs drawn per therapy plan Protocol Regimen: Every 2 week(s) x2 infusions every 6 months, today is dose 1/2 Assessment: Mc Rice is a 24 y.o. male who presents today for his scheduled infusion in good condition. Plan: -Infusion as scheduled -Notify provider for any concerns or infusion reactions -Infusion ordering provider to follow up on all labs Time spent on the assessment, plan, and coordination of care for this patient was 10 minutes. Alicia Bedolla, FELIPE-MANAGER FRONT OFFICE 09/28/2024 12:31 PM [1] No Known Allergies [2] Current Outpatient Medications: cetirizine (ZYRTEC) 10 MG tablet, Take 1 Tablet (10 mg) by mouth daily, Disp: , Rfl: mesalamine (APRISO) 0.375 g CP24 SR capsule, TAKE 3 CAPSULES BY MOUTH TWICE DAILY, Disp: 120 Capsule, Rfl: 5 nabumetone (RELAFEN) 500 MG tablet, TAKE 2 TABLETS BY MOUTH DAILY, Disp: 120 Tablet, Rfl: 2 omeprazole (PRILOSEC) 20 MG capsule, TAKE 1 CAPSULE BY MOUTH DAILY, Disp: 30 Capsule, Rfl: 5 vitamin D (ERGOCALCIFEROL) 1.25 MG (18475 UT) capsule, TAKE 1 CAPSULE BY MOUTH ONCE A WEEK, Disp: 12 Capsule, Rfl: 0 Ustekinumab (STELARA) 90 MG/ML SOSY SQ, INJECT 90MG (1ML) UNDER THE SKIN EVERY 5 WEEKS, Disp: 1 mL,Rfl: 2 promethazine (PHENERGAN) 12.5 MG tablet, TAKE 1 TABLET BY MOUTH EVERY 6 HOURS NEEDED FOR NAUSEA,Disp: 30 Tablet, Rfl: 3 Current Facility-Administered Medications: acetaminophen (TYLENOL) 325 MG tablet 650 mg, 650 mg, Oral, Q6H, Dora Kate DO, 650 mg at 09/28/24 0911 acetaminophen (TYLENOL) 325 MG tablet 650 mg, 650 mg, Oral, Once PRN, Dora Kate DO cetirizine (ZyrTEC) tablet 10 mg, 10 mg, Oral, Once PRN, Dora Kate DO diphenhydrAMINE (BENADRYL) capsule 50 mg, 50 mg, Oral, Once PRN, Dora Kate DO diphenhydrAMINE (BENADRYL) injection 50 mg, 50 mg, Intramuscular, Once PRN, Dora Kate DO EPINEPHrine 1 mg/mL injection 0.5 mg, 0.5 mg, Intramuscular, PRN, Dora Kate DO methylPREDNISolone (SOLU-Medrol) in sterile water IV High CONC 125 mg, 125 mg, Intravenous, Once PRN, Dora Kate DO lidocaine (LMX) 4 % kit 5 g, 1 Each, Topical, Once, Dora Kate DO NaCl 0.9% PosiFlush 2 mL, 2 mL, Intravenous, PRN, Dora Kate DO, Last Rate: 0 mL/hr at 09/28/24 1035, 2 mL at 09/28/24 1035 NaCl 0.9% PosiFlush 10 mL, 10 mL, Intravenous, PRN, Dora Kate DO NaCl 0.9 % IV Flush bag 100 mL, 100 mL, Intravenous, PRN, Dora Kate DO NaCl 0.9% IV 1,000 mL, 1,000 mL, Intravenous, Continuous, Dora Kate DO, Last Rate: 1,000 mL/hr at 09/28/24928, 1,000 mL at 09/28/24928 documented in this encounterUK [facility]04-03-2025 Nurse Note* Nursing - Penny Little RN - 09/28/2024 9:00 AM EDT Patient present for his Ruxience infusion. Denies of any signs and symptoms of infection. Patient and parent express understanding of signs and symptoms of infection, side effects of medication, and how/when to contact doctor with problems and concerns. Denies any signs and symptoms of reaction post ruxience infusion. Pt c/o pain 5/10 today to L shoulder and wrist. [facility]03-31-[facility] Evaluation note* Diagnosis Onset Date Resolution Status Admit Date Crohn disease acute September 25, 2024 8:38am [facility] Work Phone: 1(877) 689-116803-31-2025 Evaluation note* Diagnosis Onset Date Resolution Status Admit Date Crohn disease acute September 25, 2024 8:38am Crohn disease acute October 16, 2024 10:28am [facility] Work Phone: 1(332) 732-764210-03-2024 History of Present illness Narrative* Orin Wilhelm APRN-CNP - 03/30/2024 8:30 AM EDT Infusion Center Progress Note Date Of Service: 03/30/2024 Patient: Mc Rice : 2000 Age:23 y.o. Weight/Height: Vitals: 03/30/24 0834 Weight: 82.8 kg Height: (!) 184.8 cm Allergies: No Known Allergies Chief Complaint Patient presents with Infusion Infusion Therapy Ordering Provider: Dr. Dora Kate DO Subjective: Mc Rice is a 23 y.o. male with a history of polyarticular SHAWNEE and IBD who presents today for his scheduled Rituxan infusion. He is accompanied by his mother who report no recent illnesses. He endorses baseline pain and swelling to L wrist, shoulder, and R elbow. No additional flares or joint swelling/pain. No questions or concerns per patient, nursing or mother prior to infusion. He has previously tolerated infusions well. Past Medical and Past Surgical History: Past Medical History: Diagnosis Date Dislocation, shoulder 04/06/2016 JRA (juvenile rheumatoid arthritis) Past Surgical History: Procedure Laterality Date COLONOSCOPY N/A 04/11/2019 COLONOSCOPY + biopsies performed by Madison Fagan MD at [facility] OR ESOPHAGOSCOPY N/A 11/24/2019 ENDOSCOPY (UPPER AND COLONOSCOPY) + biopsies performed by Remy Baptiste MD at [facility] OR ORTHOPEDIC SURGERY MI ANESTH,UGI ENDOSCOPY SHOULDER SURGERY Left UPPER GASTROINTESTINAL ENDOSCOPY N/A 04/11/2019 ENDOSCOPY UPPER (FLEXIBLE) + biopsies performed by Madison Fagan MD at [facility] OR WRIST GANGLION EXCISION Left WRIST SURGERY Right Current Medications: Current Outpatient Medications: mesalamine (APRISO) 0.375 g CP24 SR capsule, TAKE 2 CAPSULES BY MOUTH TWICE DAILY, Disp: 120 Capsule, Rfl: 5 Ustekinumab (STELARA) 90 MG/ML SOSY SQ, INJECT 90MG (1ML) UNDER THE SKIN EVERY 5 WEEKS, Disp: 1 mL,Rfl: 2 nabumetone (RELAFEN) 500 MG tablet, Take 2 Tablets (1,000 mg) by mouth daily, Disp: 120 Tablet, Rfl: 2 omeprazole (PRILOSEC) 20 MG capsule, Take 1 Capsule (20 mg) by mouth daily, Disp: 30 Capsule, Rfl: 5 vitamin D (ERGOCALCIFEROL) 1.25 MG (30703 UT) capsule, TAKE 1 CAPSULE BY MOUTH EVERY 7 DAYS, Disp: 12 Capsule, Rfl: 0 promethazine (PHENERGAN) 12.5 MG tablet, TAKE 1 TABLET BY MOUTH EVERY 6 HOURS NEEDED FOR NAUSEA,Disp: 30 Tablet, Rfl: 3 Current Facility-Administered Medications: riTUXimab-pvvr (RUXIENCE) 783.6 mg in NaCl 0.9% 195.9 mL infusion, 375 mg/m2/DOSE, Intravenous, Once, Kadi Andreson, CODE NUMBER STAMPER-MANAGER FRONT OFFICE acetaminophen (TYLENOL) 325 MG tablet 650 mg, 650 mg, Oral, Q6H, Dora Kate, DO, 650 mg at 03/30/24 0848 acetaminophen (TYLENOL) 325 MG tablet 650 mg, 650 mg, Oral, Once PRN, Rashaun Kateyn C, DO cetirizine (ZyrTEC) tablet 10 mg, 10 mg, Oral, Once PRN, Dora Kate, DO diphenhydrAMINE (BENADRYL) capsule 50 mg, 50 mg, Oral, Once PRN, Dora Kate, DO diphenhydrAMINE (BENADRYL) injection 50 mg, 50 mg, Intramuscular, Once PRN, Dora Kate, EPINEPHrine 1 mg/mL injection 0.5 mg, 0.5 mg, Intramuscular, PRN, Dora Kate, DO methylPREDNISolone (SOLU-Medrol) in sterile water IV High CONC 125 mg, 125 mg, Intravenous, Once PRN, Dora Kate, DO lidocaine (LMX) 4 % kit 5 g, 1 Each, Topical, Once, Dora Kate, DO NaCl 0.9% PosiFlush 2 mL, 2 mL, Intravenous, PRN, Dora Kate, DO, Last Rate: 0 mL/hr at 03/30/24 0906, 2 mL at 03/30/24 0906 NaCl 0.9% PosiFlush 10 mL, 10 mL, Intravenous, PRN, Dora Kate, DO NaCl 0.9 % IV Flush bag 100 mL, 100 mL, Intravenous, PRN, Dora Kate, DO Objective: Vitals: 03/30/24 0834 BP: 130/67 Pulse: 59 Resp: 16 Temp: 36.5 C (97.7 F) Review of Systems: General: As noted in HPI Physical Exam: General:The patient is well-kept and well-nourished. HEENT:Conjunctiva clear,nares patent without discharge,there is full range of motion. Respiratory:Respirations are easy and non-labored. Breathing comfortably in room air Extremities:Moves all extremities purposefully. Neurologic:Awake and Alert. At neurologic baseline Data Review: Labs drawn per therapy plan Protocol Regimen: 2 infusions 2 weeks apart Q 6 months Assessment: Mc Rice is a 23 y.o. male with a history of SHAWNEE and IBD who presents today for his scheduled infusion in good condition. Plan: -Infusion as scheduled -Notify Provider for any concerns or infusion reactions -Scheduled next infusion prior to discharge home -Infusion ordering provider to follow up on all labs. Time spent on the assessment, plan, and coordination of care for this patient was 10 minutes. HODA Chow 03/30/2024 9:29 AM documented in this encounterUK [facility]10-03-2024 Miscellaneous Notes* Beckie Clemente RN - 03/30/2024 8:30 AM EDT Patient present for his second ruxience infusion. Denies of any signs and symptoms of infection. Patient and parent express understanding of signs and symptoms of infection, side effects of medication, and how/when to contact doctor with problems and concerns. Denies any signs and symptoms of reaction post ruxience infusion. * Beckie Clemente RN - 03/30/2024 8:30 AM EDT Patient discharged home in stable condition. Patient expresses verbal understanding of discharge instructions. Follow-up appointments given to patient. documented in this encounterUK Healthcare10-03-2024 Nurse Note* Beckie Clemente RN - 03/30/2024 8:30 AM EDT Patient present for his second ruxience infusion. Denies of any signs and symptoms of infection. Patient and parent express understanding of signs and symptoms of infection, side effects of medication, and how/when to contact doctor with problems and concerns. Denies any signs and symptoms of reaction post ruxience infusion. [facility]10-03-20[facility] Nurse Note* Nursing - Beckie Friend RN - 03/30/2024 8:30 AM EDT Patient discharged home in stable condition. Patient expresses verbal understanding of discharge instructions. Follow-up appointments given to patient. [facility]09-19-2024 History of Present illness Narrative* Michael Romero APRN-NANCY - 03/16/2024 8:30 AM EDT Infusion Center Progress Note Date Of Service: 03/16/2024 Patient: Mc Rice : 2000 Age:23 y.o. Weight/Height: Vitals: 03/16/24 0830 Weight: 84.2 kg Height: (!) 187.5 cm Allergies: No Known Allergies Chief Complaint Patient presents with Infusion Infusion Therapy Ordering Provider: Dr. Dora Kate, DO Subjective: Mc Rice is a 23 y.o. male with a history of polyarticular SHAWNEE and IBD who presents today for his scheduled Rituxan infusion. Per Rheumatology 02/17/24: Had a discussion about previous medication as well as new medications given his active arthritis. He felt the best when he was on rituximab from a joint perspective therefore will try restarting rituximab with stelara. He is accompanied by his mother who report no recent illnesses. No questions or concerns per patient, nursing or mother prior to infusion. He has previously tolerated infusions well but it has been several years. Past Medical and Past Surgical History: Past Medical History: Diagnosis Date Dislocation, shoulder 04/06/2016 JRA (juvenile rheumatoid arthritis) Past Surgical History: Procedure Laterality Date COLONOSCOPY N/A 04/11/2019 COLONOSCOPY + biopsies performed by Madison Fagan MD at [facility] OR ESOPHAGOSCOPY N/A 11/24/2019 ENDOSCOPY (UPPER AND COLONOSCOPY) + biopsies performed by Remy Baptiste MD at [facility] OR ORTHOPEDIC SURGERY MI ANESTH,UGI ENDOSCOPY SHOULDER SURGERY Left UPPER GASTROINTESTINAL ENDOSCOPY N/A 04/11/2019 ENDOSCOPY UPPER (FLEXIBLE) + biopsies performed by Madison Fagan MD at [facility] OR WRIST GANGLION EXCISION Left WRIST SURGERY Right Current Medications: Current Outpatient Medications: mesalamine (APRISO) 0.375 g CP24 SR capsule, TAKE 2 CAPSULES BY MOUTH TWICE DAILY, Disp: 120 Capsule, Rfl: 5 Ustekinumab (STELARA) 90 MG/ML SOSY SQ, INJECT 90MG (1ML) UNDER THE SKIN EVERY 5 WEEKS, Disp: 1 mL,Rfl: 2 nabumetone (RELAFEN) 500 MG tablet, Take 2 Tablets (1,000 mg) by mouth daily, Disp: 120 Tablet, Rfl: 2 omeprazole (PRILOSEC) 20 MG capsule, Take 1 Capsule (20 mg) by mouth daily, Disp: 30 Capsule, Rfl: 5 vitamin D (ERGOCALCIFEROL) 1.25 MG (93325 UT) capsule, TAKE 1 CAPSULE BY MOUTH EVERY 7 DAYS, Disp: 12 Capsule, Rfl: 0 promethazine (PHENERGAN) 12.5 MG tablet, TAKE 1 TABLET BY MOUTH EVERY 6 HOURS NEEDED FOR NAUSEA,Disp: 30 Tablet, Rfl: 3 Current Facility-Administered Medications: riTUXimab-pvvr (RUXIENCE) 1,000 mg in NaCl 0.9% 250 mL infusion, 1,000 mg, Intravenous, Once, Kadi Anderson, CODE NUMBER STAMPER-MANAGER FRONT OFFICE acetaminophen (TYLENOL) 325 MG tablet 650 mg, 650 mg, Oral, Q6H, Dora Kate, diphenhydrAMINE (BENADRYL) capsule 25 mg, 25 mg, Oral, Once, Dora Kate, DO methylPREDNISolone (Solu-MEDROL) injection 100 mg, 100 mg, Intravenous, Once, Dora Kate, acetaminophen (TYLENOL) 325 MG tablet 650 mg, 650 mg, Oral, Once PRN, Dora Kate, cetirizine (ZyrTEC) tablet 10 mg, 10 mg, Oral, Once PRN, Dora Kate, diphenhydrAMINE (BENADRYL) capsule 50 mg, 50 mg, Oral, Once PRN, Dora Kate, diphenhydrAMINE (BENADRYL) injection 50 mg, 50 mg, Intramuscular, Once PRN, Dora Kate, DO EPINEPHrine 1 mg/mL injection 0.5 mg, 0.5 mg, Intramuscular, PRN, Dora Kate, DO methylPREDNISolone (SOLU-Medrol) in sterile water IV High CONC 125 mg, 125 mg, Intravenous, Once PRN, Dora Kate, DO lidocaine (LMX) 4 % kit 5 g, 1 Each, Topical, Once, Dora Kate, DO NaCl 0.9% PosiFlush 2 mL, 2 mL, Intravenous, PRN, Dora Kate, DO NaCl 0.9% PosiFlush 10 mL, 10 mL, Intravenous, PRN, Dora Kate, DO NaCl 0.9 % IV Flush bag 100 mL, 100 mL, Intravenous, PRN, Dora Kate, DO Objective: Vitals: 03/16/24 0830 BP: 135/81 Pulse: 69 Resp: 18 Temp: 36.1 C (97 F) Review of Systems: General: Negative for fever Neurological: Negative for headaches Respiratory: Negative for cough or rhinorrhea Gastrointestinal: Negative for vomiting or diarrhea Musculoskeletal: Negative for joint pain and swelling Physical Exam: General:The patient is well-kept and well-nourished. HEENT:Conjunctiva clear,nares patent without discharge,there is full range of motion. Respiratory:Respirations are easy and non-labored. Extremities:Moves all extremities purposefully. Neurologic:Awake and Alert. At neurologic baseline Data Review: Labs drawn per therapy plan Protocol Regimen: Next appt 03/30/24. 2 infusions 2 weeks apart q 6 months Assessment: Mc Rice is a 23 y.o. male with a history of polyarticular SHAWNEE and IBD who presents today for his scheduled infusion in good condition. Plan: -Infusion as scheduled -Notify Provider for any concerns or infusion reactions -Scheduled next infusion prior to discharge home -Infusion ordering provider to follow up on all labs Time spent on the assessment, plan, and coordination of care for this patient was 10 minutes. HODA Fontaine 03/16/2024 8:49 AM documented in this encounterDonna Ville [id number] Miscellaneous Notes* Nursing - Alina Snow RN - 03/16/2024 8:30 AM EDT Patient present for ruxience infusion. Denies any signs or symptoms of flare of disease. Patient and parent express understanding of signs and symptoms of flare, side effects of medication, and how and when to contact doctor with problems or concerns. Denies any signs or symptoms of reaction post ruxience infusion though it has been 5 years. * Nursing - Alina Snow RN - 03/16/2024 8:30 AM EDT Patient discharged home with Mother in stable condition. Patient expresses verbal understanding of discharge instructions. Follow-up appointments given to patient. * Plan of Care - Alina Snow RN - 03/16/2024 8:30 AM EDT Problem: Falls, Risk of Goal: Absence of falls Outcome: Ongoing Problem: Infection Risk Goal: Absence of infection signs and symptoms Outcome: Ongoing Problem: Anxiety, Patient/Family Goal: Able to effectively manage anxiety response Description: REMINDER(s): Coping. Distraction therapy. Spirituality/ Uatsdin/ Alexandrea. Social support. Outcome: Ongoing documented in this encounterUK [facility]09-19-2024 Nurse Note* Nursing - Alina Snow RN - 03/16/2024 8:30 AM EDT Patient present for ruxience infusion. Denies any signs or symptoms of flare of disease. Patient and parent express understanding of signs and symptoms of flare, side effects of medication, and how and when to contact doctor with problems or concerns. Denies any signs or symptoms of reaction post ruxience infusion though it has been 5 years. [facility]-19-[facility] Nurse Note* Nursing - Alina Snow RN - 03/16/2024 8:30 AM EDT Patient discharged home with Mother in stable condition. Patient expresses verbal understanding of discharge instructions. Follow-up appointments given to patient. [facility]09-19-2024 Plan of care note* Plan of Care - Alina Snow RN - 03/16/2024 8:30 AM EDT Problem: Falls, Risk of Goal: Absence of falls Outcome: Ongoing Problem: Infection Risk Goal: Absence of infection signs and symptoms Outcome: Ongoing Problem: Anxiety, Patient/Family Goal: Able to effectively manage anxiety response Description: REMINDER(s): Coping. Distraction therapy. Spirituality/ Uatsdin/ Alexandrea. Social support. Outcome: Ongoing [facility]06-17-2024 NoteHNO ID: [id number] Author: NICK OLSON APRN.[facility] Service: ? Author Type: Nurse Practitioner Type: Progress Notes Filed: 12/22/2023 17:44 Note Text: Subjective Mc Rice is a 23 year old male here today for well adult exam. I reviewed past medical, surgical, social, and family histories today and updated chart. Allergies, chronic medications, and supplements were also reviewed. Allergies Associated symptoms include abdominal pain, arthralgias, joint swelling, nausea and vomiting. Pertinent negatives include no chest pain, chills, congestion, coughing, fatigue, fever, headaches, rash, sore throat or weakness. Doing pretty good overall Feels he has developed allergies over the last year or so Stuffy nose, watery eyes, sneeze, itchy nose not often - during the spring/fall seasons Hx rheumatoid arthritis, inflammatory bowel disease/colitis Specialists will see him till age 26 Getting flare ups occasionally - diarrhea, abdominal pain, nausea Will take phenergan as needed for nausea/vomiting Just started Xeljanz - hoping it helps both issues, targeted towards arthritis PAST MEDICAL HISTORY Diagnosis Date Colitis Contusion of left ankle 10/24/1015 Ganglion cyst of wrist 10/27/2011 Localized swelling, mass and lump, left lower limb Obesity Pain in left ankle and joints of left foot Rheumatoid arthritis(714.0) PAST SURGICAL HISTORY Procedure Laterality Date COLONOSCOPY 12/22/2018 lymphocytic colitis PAST SURGICAL HISTORY OF cyst lt wrist- debridment RA PAST SURGICAL HISTORY OF Left shoulder surgery WRIST rt wrist fractured Jan 2012 ORIF ALLERGIES Patient has no known allergies. MEDICATIONS XELJANZ 5 mg tablet Take 5 mg by mouth. ustekinumab (STELARA) 90 mg/mL injection Inject 90 mg subcutaneously. promethazine (PHENERGAN) 12.5 mg tablet Take 12.5 mg by mouth every 6 hours as needed for Nausea/Vomiting. mesalamine ER (APRISO) 0.375 gram capsule Take 1.5 g by mouth. Take 1.5 g by mouth. omeprazole (PRILOSEC) 20 mg capsule Take 1 capsule by mouth once daily. nabumetone (RELAFEN) 500 mg tablet Take 2 Tablets (1,000 mg) by mouth daily celecoxib (CELEBREX) 100 mg capsule TAKE 1 CAPSULE BY MOUTH TWICE DAILY (Patient not taking: Reported on 12/13/2023) adalimumab (HUMIRA) 40 mg/0.8 mL injection Inject 160 mg subcutaneously one time only. Initial Dose, Pending Prior Authorization Approval. (Patient not taking: Reported on 12/13/2023) lactose-reduced food (ENSURE ORAL) Take 8 oz by mouth twice daily. (Patient not taking: Reported on 12/13/2023) riTUXimab (RITUXAN) 10 mg/mL injection Inject intravenously. Inject every 6 months (Patient not taking: Reported on 12/13/2023) diclofenac sodium (VOLTAREN) 1 % topical gel Apply a small amount to affect joint three times a day as needed for pain (Patient not taking: Reported on 12/13/2023) diclofenac XR (VOLTAREN-XR) 100 mg Tb24 Take 100 mg by mouth twice daily. (Patient not taking: Reported on 12/13/2023) FAMILY HISTORY Problem Relation Age of Onset COPD Maternal Grandmother Lipids Maternal Grandmother COPD Maternal Grandfather GI Mother Hypertension Mother Social History Tobacco Use Smoking status: Never Smokeless tobacco: Never Vaping Use Vaping Use: Never used Substance Use Topics Alcohol use: No Comment: Non-drinker Drug use: No Comment: No reported history Review of Systems Constitutional: Negative for appetite change, chills, fatigue, fever and unexpected weight change. HENT: Negative for congestion, ear pain, rhinorrhea and sore throat. Eyes: Negative for pain, discharge, itching and visual disturbance. Respiratory: Negative for cough, shortness of breath and wheezing. About a month ago had a cough Cardiovascular: Negative for chest pain, palpitations and leg swelling. Gastrointestinal: Positive for abdominal pain, diarrhea, nausea and vomiting. Negative for constipation. Genitourinary: Negative for difficulty urinating. Musculoskeletal: Positive for arthralgias and joint swelling. Left wrist, left shoulder, right elbow - the worst spots Gets injections with interventional radiology Skin: Negative for rash. Neurological: Negative for dizziness, tremors, weakness and headaches. Psychiatric/Behavioral: Positive for sleep disturbance (disrupted from chronic pain). Negative for dysphoric mood. The patient is not nervous/anxious. Objective BP 128/74 Pulse 103 Temp 98.3 Ht 6' 1" (1.85m) Wt 185 lb (83.9kg) SpO2 98% BMI 24.41 kg/(m2). Physical Exam Constitutional: Appearance: Normal appearance. He is well-developed. HENT: Head: Normocephalic and atraumatic. Right Ear: Hearing, tympanic membrane, ear canal and external ear normal. No drainage. Left Ear: Hearing, tympanic membrane, ear canal and external ear normal. No drainage. Nose: Nose normal. Mouth/Throat: Pharynx: Uvula midline. Eyes: General: Lids are normal. Right eye: No discha (more content not included)...[facility] 11-01-2023 NotePROCEDURE: Intra-articular steroid injection, fluoroscopic-guided. CLINICAL HISTORY: 23-year-old male with SHAWNEE and right elbow pain. Good response to prior steroid injections. Steroid injection requested for symptomatic pain relief and to decrease inflammation. Patient reports a preprocedure pain of a 4-5. COMPARISON: Prior joint injection 08/31/2022 TECHNICAL DETAILS: Interventional Radiologist: Kyra Parrish M.D. Sedation: None. Contrast: 0.5 mL Isovue-300. Fluoroscopy time: 0.1 minutes. Estimated radiation dose: 0.1 mGy Dose area product: 0.53 microGy-cm^2 Equipment: 22 gauge, 1.5 inch spinal needle. PROCEDURE/FINDINGS: Informed consent was obtained from the patient, which included an explanation of procedure details, risks, benefits, and alternative options. The patient was then positioned supine. A preprocedure timeout was performed. The skin overlying the right elbow joint was prepped and draped in sterile fashion. Buffered 1% lidocaine was administered for local anesthetic. Under fluoroscopic guidance, the needle was directed into the joint. A small amount of contrast was injected, confirming intra-articular location of the needle tip. After which, a total of 40 mg Kenalog and 1 ml 0.5% bupivacaine were injected into the joint space. The patient tolerated the procedure well and no immediate complications were encountered. On a pain scale of 0 through 10, the patient reports maximum pain during the procedure as a 7. Pain level at the end of the procedure was reported as a 2-3. [facility] [id number] NotePROCEDURE: Intra-articular steroid injection, fluoroscopic-guided. CLINICAL HISTORY: 23-year-old male with SHAWNEE and right elbow pain. Good response to prior steroid injections. Steroid injection requested for symptomatic pain relief and to decrease inflammation. Patient reports a preprocedure pain of a 4-5. COMPARISON: Prior joint injection 08/31/2022 TECHNICAL DETAILS: Interventional Radiologist: Kyra Parrish M.D. Sedation: None. Contrast: 0.5 mL Isovue-300. Fluoroscopy time: 0.1 minutes. Estimated radiation dose: 0.1 mGy Dose area product: 0.53 microGy-cm^2 Equipment: 22 gauge, 1.5 inch spinal needle. PROCEDURE/FINDINGS: Informed consent was obtained from the patient, which included an explanation of procedure details, risks, benefits, and alternative options. The patient was thn positioned supine. A preprocedure timeout was performed. The skin overlying the right elbow joint was prepped and draped in sterile fashion. Buffered 1% lidocaine was administered for local anesthetic. Under fluoroscopic guidance, the needle was directed into the joint. A small amount of contrast was injected, confirming intra-articular location of the needle tip. After which, a total of 40 mg Kenalog and 1 ml 0.5% bupivacaine were injected into the joint space. The patient tolerated the procedure well and no immediate complications were encountered. On a pain scale of 0 through 10, the patient reports maximum pain during the procedure as a 7. Pain level at the end of the procedure was reported as a 2-3. IMPRESSION: 1. Technically successful, fluoroscopic-guided, right elbow steroid injection. 2. Interval reduction of joint pain following injection local anesthetic. This report has been created using voice recognition software Signed by: Dr. Kyra Parrish at 11/01/2023 10:13[facility] 08-31-2022 NotePROCEDURE: Fluoroscopically guided intra-articular steroid. CLINICAL HISTORY: Left wrist and right elbow pain. SHAWNEE. COMPARISON: Right forearm MRI August 17, 2018 TECHNICAL DETAILS: Interventional Radiologist: Marie Celis MD Sedation: None. Contrast: 1 mL Isovue-300. Fluoroscopy time: 0.9 minutes. Estimated radiation dose: 0.1 mGy Dose area product: 1.3 cm microGy-cm^2 Equipment: 25 gauge butterfly needle and 25-gauge injection needle. PROCEDURE/FINDINGS: Informed consent was obtained from the patient, which included an explanation of procedure details, risks, benefits, and alternative options. The patient was then positioned supine. A preprocedure timeout was performed. The skin overlying the left wrist and right elbow joints were prepped and draped in sterile fashion. Buffered 1% lidocaine was administered for local anesthetic. Under fluoroscopic guidance, the needle was directed into the radiocarpal joint space. A small amount of contrast was injected, confirming intra-articular location of the needle tip. Subsequently, a total of 20 mg Kenalog followed by 1 cc of 0.5% bupivacaine was injected into the joint space. Utilizing the same butterfly needle, attention was then turned to the intercarpal joint space where a total of 20 mg of Kenalog followed by 1 cc of 0.5% bupivacaine was injected. Attention was then turned to the right elbow. Under fluoroscopic guidance, the needle was directed into the radioulnar joint space. A small amount of contrast was injected confirming intra-articular location of the needle tip. Subsequently, a total of 40 mg of Kenalog followed by 2 cc of 0.5% bupivacaine was injected into the joint space. The patient tolerated the procedure well and no immediate complications were encountered. [facility] [id number] NotePROCEDURE: Right elbow steroid injection. 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 The patient reports a preprocedure baseline pain today of 3 out of 10 on a numeric pain scale. COMPARISON: Right forearm radiograph 08/11/2018. TECHNICAL DETAILS: Interventional Radiologist: Kyra Parrish MD Sedation: None. Contrast: 0.5 mL of Isovue-300 Fluoroscopy time: 0.1 minutes Estimated radiation dose: 0.1 mGy Dose area product: 1.12 microGy-m2 Equipment: 22 gauge, 1.5 inch spinal needle. PROCEDURE/FINDINGS: Informed consent was obtained from the patient, which included an explanation of procedure details, risks, benefits, and alternative options. After the patient was positioned on the table, a pre-procedure timeout was conducted. The right elbow was prepped and draped in sterile fashion. 1 ml of buffered 1% lidocaine was used to anesthetize the subcutaneous tissues. Under fluoroscopic guidance, the needle was directed into the joint. A small amount of Isovue-300 was injected, confirming intra-articular location of the needle. Special care was taken not to introduce air into the joint capsule. After which, a total of 20 mg triamcinolone hexacetonide and 2 ml 0.5% bupivacaine were injected into the joint space. The patient tolerated the procedure well and no immediate complications were encountered. On a pain scale of 0 through 10, the patient reports maximum pain during the procedure as a 4. Pain level at the end of the procedure was reported as a 0. The patient left the interventional suite in good condition. [facility] RADIOLOGYConsult note Author Davin Sandhu [facility] Note Date/Time October 16, 2024 12: 35pm [facility] Medical Records Department [address] [place] [address] Anesthesia Postop Eval II 10/16/24 1235 MR#: [id number] Acct: [id number] Name: MC RICE Rep #:[id number] : 2000 24 From: Davin Sandhu MD PCP: FLORIDALMA Vasquez Status:REG SD C Y Race: C Location: [facility]15-1 Anesthesia Postop Eval I Sum Anesthesia Postop Eval I Summary Anesthesia Postop Eval I Summary: Anesthesia Postop Eval I: Assessment Summary Airway patent Spontaneous unlabored respirations Mental status nausea Vomiting Anesthesia Postop Eval I: Fluid Summary Crystalloid volume administer (ml) Colloids volume administered ( ml) Blood Product volume administered (ml) Total IV fluid infused Anesthesia Postop Eval I: Summary Notes Anesthesia Complication Anesthesia Complication Comment: Post-operative progress note Anesthesia: Postop Eval II Evaluation Mental status: Awake Pain Level: 0 nausea: No Vomiting: No 10/16/24 1235 <Electronically signed by Davin Sandhu MD > Date _ Davin Lewis Signature: Date CC: ~ Signed [facility] Work Phone: Consult note Author Pablo Leon [facility] Note Date/Time October 16, 2024 12: 36pm [facility] Medical Records Department [address] [place] [id number] Anesthesia Postop Eval I 10/16/24 1235 MR#: [id number] Acct: [id number] Name: MC RICE Rep #:[id number] : 2000 24 From: Pablo Leon PCP: Nick Olson NP-C Status:REG SD C Y Race: C Location: [place] [address] Anesthesia: Postop Eval I Current Vital Signs Temperature: 97.6 F Pulse Rate: 62 Blood Pressure: 88/55 Respiratory Rate: 16 Pulse Ox: 97 Oxygen Delivery Method: Room Air Assessment Airway patent: Yes Spontaneous unlabored respirations: Yes Mental status: Asleep nausea: No Vomiting: No Anesthesia Complication: No Fluid Hydration Crystalloid volume administer (ml): 90 Total IV fluid infused: 90 Progress Note Anesthesia document: Postop Eval 1 completed: Yes 10/16/24 1236 <Electronically signed by Pablo Leon > Date _ Pablo Lewis Signature: Date CC: ~ Signed [facility] Work Phone: Evaluation note* 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, chronic or unspecified documented in this encounter [facility]* 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, chronic or unspecified long-term current use of 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 Vitamin D deficiency Unspecified vitamin D deficiency [facility] 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, 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 Arthritis of right elbow Unspecified arthropathy, upper arm documented in this encounter [facility]* Diagnosis IBD (inflammatory bowel disease) Other and unspecified noninfectious gastroenteritis and colitis Elevated liver enzymes Nonspecific elevation of levels of transaminase or lactic acid dehydrogenase (LDH) documented in this encounter [facility]* Diagnosis Rheumatoid arthritis of multiple sites with negative rheumatoid factor Arthritis of right elbow Unspecified arthropathy, upper arm documented in this encounter [facility]* Diagnosis Rheumatoid arthritis of multiple sites with negative rheumatoid factor 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 documented in this encounter [facility]* Diagnosis long-term (current) use of non-steroidal anti-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 (nsaid)- Primary 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 Rheumatoid arthritis of multiple sites with negative rheumatoid factor Vitamin D deficiency Unspecified vitamin D deficiency documented in this encounter [facility]* Diagnosis 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 (nsaid)- Primary long-term current use of 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 Rheumatoid arthritis of multiple sites with negative rheumatoid factor Vitamin D deficiency Unspecified vitamin D deficiency documented in this encounter [facility]* Diagnosis long-term (current) use of non-steroidal anti-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 (nsaid)- Primary 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 Note Date/Time October 16, 2024 11: 34am [facility] Medical Records Department [address] [place] [address] History & Physical Exam 10/16/24 1132 MR#: [id number] Acct: [id number] Name: MC RICE Rep #:[id number] : 2000 24 From: Hunter Ceja DO PCP: FLORIDALMA Vasquez Status:REG SD C Location: [place] [address] HPI - General General Date of Admission: 10/16/24 Date of Service: 10/16/24 Chief Complaint: abdominal pain and crohn's disease HPI Narrative MC RICE, is a 24 M who presents for the evaluation of his crohns disease. *[facility] established 09.25.24 pt presents today to transfer care from [facility]. Pt has a long history of IBD and RA. Pt reports he was diagnosed with RA when he was 3 and is taking Rituximab infusions for this. Pt was diagnosed with IBD around 2019 and is on Mesalamine and Stelara Q5W. Pt reports his last colonoscopy was [id number]. Reports he has "flares" every few months. Ptreports daily nausea. States that he has alternating bowel movements and states that when he gets constipated that usually means he is about to have a flare. [facility] Medical History History of steroid therapy Dietary restriction History of colitis History of Crohn's disease History of IBS Gastric reflux Non-smoker Hx of fracture of arm History of ganglion cyst Rheumatoid arthritis Home Medications ?Medication ?Instructions ?Recorded ?Last Taken ?Type cetirizine 10 mg capsule (Zyrtec) 10 mg PO QDAY Unknown History cholecalciferol (vitamin D3) 1,250 1,250 mcg PO QWEEK 09/25/24 Unknown History mcg (50,000 unit) capsule mesalamine 0.375 gram 1.125 g PO BID 09/25/2409/27 History capsule,extended release 24 hr nabumetone 500 mg tablet 1,000 mg PO QDAY 09/25/24 Un known History omeprazole 20 mg capsule,delayed 20 mg PO QDAY 5 Unknown History release promethazine 12.5 mg tablet 12.5 mg PO Q6H PRN nausea and 09/25/24 Unknown History vomiting rituximab 10 mg/mL See Rx Instructions .Route . COMPLEX 09/25/24 Unknown History concentrate,intravenous ustekinumab 90 mg/mL subcutaneous 90 mg subcut Q5W Unknown History syringe (Stelara) Allergy/AdvReac Type Severity Reaction Status Date / Time No Known Allergies Allergy Verified 10/16/24 10:42 Family History Sister Anxiety Mother Arthritis Grandmother Arthritis Autoimmune disorder Hypertension Hyperlipemia Grandfather COPD (chronic obstructive pulmonary disease) Aunt Breast cancer Depression Surgical History History of shoulder surgery History of esophagogastroduodenoscopy (EGD) Hx of colonoscopy Social History Smoking Status: Never smoker alcohol intake: never substance use type: marijuana what type of physical activity do you participate in: other details: physical therapy ROS Constitutional Constitutional: Denies fatigue, fever(s), poor appetite, weight gain or weight loss Gastrointestinal Gastrointestinal: Denies belching, bloating, change in bowel habits, change in stool character, chewing difficulty, coffee ground emesis, constipation, cramping, diarrhea, dyspepsia, dysphagia, early satiety, excessive flatus, fecalincontinence, heartburn, hematemesis, hematochezia, hemorrhoids, loose stools, melena, nausea, odynophagia, rectal bleeding, tenesmus, vomiting or weight changes Vital Signs Vital Signs Vital Signs: 10/16/24 10:45 10/16/24 10:45 Temperature 98.7 F Temperature Source Temporal Pulse Rate 117 H Respiratory Rate 16 Respiratory Pattern Normal Blood Pressure 118/87 H Blood Pressure Mean 97 Blood Pressure Source Monitor Blood Pressure Position Sitting Blood Pressure Location Left Arm Pulse Ox 98 Oxygen Delivery Method Room Air Weight Weight: 171 lb 15.369 oz Body Mass Index (BMI) 22.6 Physical Exam Const alert, oriented x3, no apparent distress and healthy appearing General Appearance: cooperative GI normal to inspection, nondistended, normoactive bowel sounds, soft to palpation,non-tender and non-distended Percussion: normal to percussion Rectal Exam: deferred Assessment & Plan Assessment/Plan (1) Crohn disease: PLAN: Assessment and Plan Assessment and Plan (1) Crohn disease: Status: Acute Plan: Mc is a pleasant 24-year-old with a longstanding history of complicated rheumatoid arthritis which was diagnosed at the age of 3. He is currently on rituximab therapy every 6 months. 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 As per his mother and the patient he has been on biologic therapy and 5-ASA's. As per his mother he has been really struggling with weight loss and maintaining his weight. He stays away from mostly all fiber containing foods. He is not having any rashes, lesion, jaundice, headaches, fatigue and is currently having 1 bowel movement a day. His last ESR was 6 and his CRP was 3. He has no family history of inflammatory bowel disease. He has not had any abdominal surgeries. He has but never been diagnosed with obstruction. He has not been diagnosed with a fistula. He does not have any prior blood per rectum. He does not use any street drugs. Currently at this time he is on rituximab for his rheumatoid arthritis. He alsogets intermittent steroids that infusion. He is on Stelara every 5 weeks for his inflammatory bowel disease. He has not had a colonoscopy since 2020. Patient says he enterography is in the past. He has not been diagnosed of any vitamin deficiencies or anemia. 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 Work Phone: Resdkp for referral (narrative)No reason for referral information availableWAdena Health System Work Phone: Reixty for visit Narrative* Referral (Routine) - Closed Specialty Diagnoses / Procedures Referred By Contact Referred To Contact Radiology / Interventional Radiology Diagnoses Rheumatoid arthritis without rheumatoid factor, multiple sites Primary osteoarthritis, right elbow Procedures CHG FLUOROSCOPIC GUIDANCE NEEDLE PLACEMENT ADD ON MI ARTHROCENTESIS ASPIR&/INJ INTERM JT/BURS W/O US IR STEROID INJECTION Dora Kate, [place] [address] [address] [place] [address] Referral ID Status Reason Start Date Expiration Date Visits Re quested Visits Authorized [id number] Closed 11/01/2023 11/26/2023 1 1 [facility] for visit Narrative* Episode Based Medications (Routine) - Authorized Specialty Diagnoses / Procedures Referred By Contac t Referred To Contact Infusion Therapy Diagnoses 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 (nsaid) 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 Rheumatoid arthritis of multiple sites with negative rheumatoid factor Vitamin D deficiency Procedures MI INJ RUXIENCE, 10 MG /td Dora Kate, [place] [address] Phone: tel: fax: Referral ID Status Reason Start Date Expiration Date V isits Requested Visits Authorized [id number] Authorized 09/04/2024 09/04/2025 8 8 [facility] Summary Purpose Family History No Family History Records Found Relationship Condition Age at Onset Recorded Date/T ezra sister Anxiety Unknown mother Arthritis Unknown grandmother Arthritis Unknown Autoimmune disorder Unknown Hypertension Unknown Hyperlipidemia Unknown grandfather Chronic obstructive pulmonary disease Unk nown aunt Malignant neoplasm of breast Unknown Depression Unknown Advance Directives No Advanced Directives Records Found Advance Directive Response Recorded Date/ Time Living Will No October 10, 2024 4:27pm Do you have a Healthcare Power of Central Supply Technician Supervisor? No October 10, 2024 4:27pm Chief Complaint and Reason for Visit Chief Complaint Admit Date CROHN'S, OTHER September 25, 2024 8:3 8am E ORDERS October 04, 2024 9:45 am Reason for Visit Admit Date Crohn disease September 25, 2024 8:3 8am Chief Complaint Admit Date CROHN'S, OTHER September 25, 2024 8:3 8am Reason for Visit Admit Date Crohn disease September 25, 2024 8:3 8am Crohn disease October 16, 2024 10: 28am Additional Source Comments (unrecognized sect ion and content) No Status Records FoundNo Status Records FoundNo Status Records FoundNo Status Records FoundNo Status Records FoundNo Status Records FoundNo Status Records Found INFORMATION SOURCE (unrecogn ized section and content) DATE CREATED AUTHOR 12/16/2017 [facility] DATE CREATED AUTHOR AUTHOR'S ORGANIZ ATION 12/22/2017 [facility] DATE CREATED AUTHOR AUTHOR'S ORGANIZ ATION 01/19/2020 [facility] DATE CREATED AUTHOR AUTHOR'S ORGANIZ ATION 10/23/2021 [facility] DATE CREATED AUTHOR AUTHOR'S ORGANIZ ATION 08/02/2024 [facility] DATE CREATED AUTHOR AUTHOR'S ORGANIZ ATION 10/25/2024 [facility] DATE CREATED AUTHOR AUTHOR'S ORGANIZ ATION 11/22/2024 [facility] Care Teams (unrecognized sec tion and content) Sensor Specialist Relationship Specialty Start Date End Date Arlette Le DO [address] [place], [place] [id number] PCP - General Family Medicine 04/11/19 Mary Kay Gaming APRN-[place] [address] Nurse Practitioner Interventional Radiology 02/03/18 Sensor Specialist Relationship Specialty Start Date End Date Arlette Le DO [address] [place] [address] PCP - General Family Medicine 04/11/19 Mary Kay Gaming, CODE NUMBER STAMPER-MANAGER [place] [address] Nurse Practitioner Interventional Radiology 02/03/18 Sensor Specialist Relationship Specialty Start Date End Date Nick Olson CODE NUMBER STAMPER-MANAGER FRONT OFFICE [address] [place] [address] PCP - General Family Medicine 08/27/22 Mary Kay Gaming, CODE NUMBER STAMPER-MANAGER FRONT OFFICE [place] [address] Nurse Practitioner Interventional Radiology 02/03/18 Sensor Specialist Relationship Specialty Start Date End Date Nick Olson, CODE NUMBER STAMPER-MANAGER FRONT OFFICE [address] [place] [address] PCP - General Family Medicine 08/27/22 Mary Kay Gaming CODE NUMBER STAMPER-MANAGER FRONT OFF[facility] [place] [address] Nurse Practitioner Interventional Radiology 02/03/18 Sensor Specialist Relationship Specialty Start Date End Date Nick Olson CODE NUMBER STAMPER-MANAGER FRONT OFFICE [address] [place] [address] [place] [address] PCP - General Family Medicine 08/27/22 Mary Kay Gaming, CODE NUMBER STAMPER-MANAGER FRONT OFFICE [address] [place] [address] Nurse Practitioner Interventional Radiology 02/03/18 Sensor Specialist Relationship Specialty Start Date End Date Nick Olson CODE NUMBER STAMPER-MANAGER FRONT OFFICE [address] [place] [address] PCP - General Family Medicine 08/27/22 Mary Kay Gaming CODE NUMBER STAMPER-[place] [address] Nurse Practitioner Interventional Radiology 02/03/18 Sensor Specialist Relationship Specialty Start Date End Date Nick Olson CODE NUMBER STAMPER-MANAGER FRONT OFFICE [address] [place] [address] PCP - General Family Medicine 08/27/22 Mary Kay Gaming, CODE NUMBER STAMPER-[place] [address] Nurse Practitioner Interventional Radiology 02/03/18 Sensor Specialist Relationship Specialty Start Date End Date Nick Olson CODE NUMBER STAMPER-MANAGER FRONT OFFICE [address] [place] [address] PCP - [facility] Family Medicine 08/27/22 Mary Kay Gaming, CODE NUMBER STAMPER-[place] [address] Nurse Practitioner Interventional Radiology 02/03/18 Team Status: Active Member Role Status Dates Nick Olson NP, LIVE OUT NANNY-C Primary Care Provider Active Team Status: Inactive Member Role Status Dates Dr. Hunter Ceja DO Attending Provider Active Start: September 25, 2024 End: September 25, 2024 Nick Olson NP, LIVE OUT NANNY-C Primary Care Provider Active Start: September 25, 2024 End: September 25, 2024 Nick Olson NP, LIVE OUT NANNY-C Referring Provider Active Start: September 25, 2024 End: September 25, 2024 Team Status: Inactive Member Role Status Dates Nick Olson NP LIVE OUT NANNY-C Primary Care Provider Active Start: September 25, 2024 End: September 25, 2024 Dr. Hunter Ceja DO Attending Provider Active Start: September 25, 2024 End: September 25, 2024 Dr. Hunter Ceja DO Referring Provider Active Start: September 25, 2024 End: September 25, 2024 Sensor Specialist Relationship Specialty Start Date End Date Nick Olson, CODE NUMBER STAMPER-MANAGER FRONT OFFICE [address] [place] [address] PCP - General Family Medicine 08/27/22 Mary Kay Gaming, CODE NUMBER STAMPER-[place]NA[place] [address] Nurse Practitioner Interventional Radiology 02/03/18 Team Status: Inactive Member Role Status Dates Nick Olson LIVE OUT NANNY, LIVE OUT NANNY-C Primary Care Provider Active Start: October 04, 2024 End: October 04, 2024 Dr. Hunter Ceja DO Attending Provider Active Start: October 04, 2024 End: October 04, 2024 Dr. Hunter Ceja DO Referring Provider Active Start: October 04, 2024 End: October 04, 2024 Sensor Specialist Relationship Specialty Start Date End Date Nick Olson CODE NUMBER STAMPER-MANAGER FRONT OFFICE [address] [place] [address] PCP - General Family Medicine 08/27/22 Mary Kay Gaming, CODE NUMBER STAMPER-[place] [address] Nurse Practitioner Interventional Radiology 02/03/18 Team Status: Inactive Member Role Status Dates Nick Olson LIVE OUT NANNY, LIVE OUT NANNY-C Primary Care Provider Active Start: October 16, 2024 End: October 16, 2024 Nick Olson LIVE OUT NANNY, LIVE OUT NANNY-C Referring Provider Active Start: October 16, 2024 End: October 16, 2024 Dr. Hunter Ceja DO Attending Provider Active Start: October 16, 2024 End: October 16, 2024 Team Status: Active Member Role Status Dates Nick Olson LIVE OUT NANNY, LIVE OUT NANNY-C Primary Care Provider Active Start: October 16, 2024 Nick Olson LIVE OUT NANNY, LIVE OUT NANNY-C Referring Provider Active Start: October 16, 2024 Dr. Hunter Friend , DO Attending Provider Active Start: October 16, 2024 Dr. Harrison Friend , DO Other Provider Active St art: October 16, 2024 Reason for Visit (unrecogniz ed section and content) Reason Comments Infusion Specialty Diagnoses / Procedures Referred By Contac t Referred To Contact Infusion Therapy Diagnoses 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 (nsaid) long-term current use of 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 Rheumatoid arthritis of multiple sites with negative rheumatoid factor Vitamin D deficiency Dora Kate, [place] [address] Phone: tel: fax: Referral ID Status Reason Start Date Expiration Date V isits Requested Visits Authorized [id number] Authorized 02/17/2024 08/28/2024 365 365 Specialty Diagnoses / Procedures Referred By Contac t Referred To Contact Infusion Therapy Diagnoses 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 (nsaid) 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 Rheumatoid arthritis of multiple sites with negative rheumatoid factor Vitamin D deficiency Procedures MI INJ RUXIENCE, 10 MG /td Dora Kate, [place] [address] Phone: tel: fax: Referral ID Status Reason Start Date Expiration Date V isits Requested Visits Authorized [id number] Authorized 09/04/2024 09/04/2025 8 8 Goals (unrecognized section and content) Goals may be documented in a n alternate sectionGoals may be documented in an alternate section FOR RECORDS PERTAINING TO PATIENTS WHO ARE OR HAVE BEEN ENROLLED IN A CHEMICAL DEPENDENCY/SUBSTANCEABUSE PROGRAM, SOME INFORMATION MAY BE OMITTED. This clinical summary was aggregated from multiple sources. Caution should be exercised in using it in the provision of clinical care. This summary normalizes information from multiple sources, and as a consequence, information in this document may materially change the coding, format and clinical context of patient data. In addition, data may be omitted in some cases. CLINICAL DECISIONS SHOULD BE BASED ON THE PRIMARY CLINICAL RECORDS. [employer] provides no warranty or guarantee of the accuracy or completeness of information in this document.
[2025-04-18 20:37] LABS: Hematocrit 44.0 % (40-54); Hemoglobin 15.3 g/dL (13.0-16.5); Immature Granulocytes Count 0.040 X10^3/uL (0.0-0.0); Mean Corp Hgb Conc 34.8 g/dL (32-36); Mean Corpuscular Volume 86.1 fL (80-94); Mean Platelet Vol. 9.2 fl (6.2-12.0); NRBC Flagged by Analyzer 0 % (0-5); Platelet Count 234 K/mm3 (150-450); RBC Distribution Width CV 11.9 % (11.6-14.6); RBC Distribution Width SD 38.0 fl (35.1-43.9); Red Blood Count 5.11 M/mm3 (4.6-6.2); White Blood Count 14.4 K/mm3 (4.4-11.0)
[2025-04-18 20:43] VITALS: BP 127/70; PULSE 72; RESP 16; O2SAT 100
[2025-04-18 21:05] LABS: AST(SGOT) 24 U/L (<=37); Alanine Aminotransfer ALT/SGPT 23 U/L (<=46); Albumin, Serum 4.6 g/dL (3.5-5.0); Alkaline Phosphatase 58 U/L (40-129); Anion Gap 13 (5-15); BUN 12 mg/dL (4-19); BUN/Creat Ratio 13.4 RATIO (10-20); Calcium,Total 10.0 mg/dL (7.6-11.0); Carbon Dioxide 23.0 mmol/L (21.0-32.0); Chloride 101 mmol/L (98-108); Estimated Creatinine Clearance 143.03 ml/min (50-250); Globulin 2.7 g/dL (2.2-4.2); Glucose 107 mg/dL (70-99); Lipase 19 U/L (13-75); Potassium 3.6 mmol/L (3.3-5.1)
[2025-04-18 22:00] VITALS: BP 120/70; PULSE 88; RESP 16; O2SAT 98
[2025-04-18 22:06] LABS: Mucous, Urine 0 SEEN /hpf (<or=2+); Red Blood Cells-Urine 0 SEEN /hpf (0-5)
[2025-04-18 22:24] LABS: Color, Urine Yellow (Yellow); Glucose, Dipstick Normal (Normal); Ketone-Dipstick 50 mg/dl (Negative); Leukocyte Esterase-Dipstick Negative /ul (Negative); Nitrite-Dipstick Negative (Negative); Occult Blood-Urine Negative /ul (Negative); Protein-Dipstick 30 mg/dl (Negative); Specific Gravity, Urine 1.010 (1.002-1.030); Urine Bilirubin Dipstick Negative (Negative)
[2025-04-18 22:49] LABS: Squamous Epithelial Cells - UA 0-5 SEEN /hpf (0-5)
[2025-04-18 23:08] VITALS: BP 120/70; PULSE 88; RESP 16; TEMP 36.8; O2SAT 98
== END 2025-04-18 23:21 | disposition home or self-care (01) ==
PROVIDERS: Emergency Provider Surgery; PCP Nurse Practitioner Family; Visit Provider Surgery
DX: K50.90 Crohn's disease, unspecified, without complications (principal); M06.9 Rheumatoid arthritis, unspecified; Z79.899 Other long term (current) drug therapy
CPT/HCPCS: 74177; 80053; 81001; 83605; 83690; 85025; 96361; 96374; 96375; 99284; Q9967; J2405

== ENCOUNTER → 2025-05-23 | Outpatient (CLI) | payer MEDICAID, SELFPAY ==
[2025-05-23 09:09] LABS: Hematocrit 45.3 % (40-54); Hemoglobin 15.2 g/dL (13.0-16.5); Immature Granulocytes Count 0.020 X10^3/uL (0.0-0.0); Mean Corp Hgb Conc 33.6 g/dL (32-36); Mean Corpuscular Volume 89.5 fL (80-94); Mean Platelet Vol. 9.0 fl (6.2-12.0); NRBC Flagged by Analyzer 0 % (0-5); Platelet Count 222 K/mm3 (150-450); RBC Distribution Width CV 12.2 % (11.6-14.6); RBC Distribution Width SD 40.4 fl (35.1-43.9); Red Blood Count 5.06 M/mm3 (4.6-6.2); White Blood Count 5.7 K/mm3 (4.4-11.0)
[2025-05-23 09:47] LABS: AST(SGOT) 25 U/L (<=37); Alanine Aminotransfer ALT/SGPT 29 U/L (<=46); Albumin, Serum 4.6 g/dL (3.5-5.0); Alkaline Phosphatase 57 U/L (40-129); Anion Gap 9 (5-15); BUN 9 mg/dL (4-19); BUN/Creat Ratio 8.2 RATIO (10-20); Calcium,Total 9.5 mg/dL (7.6-11.0); Carbon Dioxide 24.9 mmol/L (21.0-32.0); Chloride 106 mmol/L (98-108); Globulin 2.4 g/dL (2.2-4.2); Glucose 87 mg/dL (70-99); Potassium 4.0 mmol/L (3.3-5.1)
[2025-05-23 09:48] LABS: Magnesium 2.1 mg/dL (1.5-2.2)
[2025-05-23 10:32] LABS: CRP < 3.00 mg/L (0.0-3.0)
== END | disposition home or self-care (01) ==
LOC: LAB 08:22
PROVIDERS: PCP Nurse Practitioner Family; Referring Provider Internal Medicine Gastroenterology; Visit Provider Internal Medicine Gastroenterology
DX: K50.90 Crohn's disease, unspecified, without complications (principal)
CPT/HCPCS: 36415; 80053; 83735; 84100; 85025; 85652; 86140

== ENCOUNTER 2025-06-26 05:30 | Day surgery (SDC) | payer MEDICAID, SELFPAY ==
[2025-06-26] VITALS (7 sets, daily range): BP systolic 117–138; BP diastolic 83–90; PULSE 75–99; RESP 16–20; TEMP 36.2–37.2; O2SAT 94–100; BMI 22.1
--- OUTSIDE RECORDS SUMMARY | 2025-06-26 05:34 | XMS RPT_ITS | CCD ---
Author Organization [facility] Care Team Providers Care Wire Transfer Clerk Name Role Phone DORA LAYTON Unavailable Unavaila yung Strafadany, Liv Unavailable Unavailable PROVIDER, UNKNOWN Unavailable Unavailable Nick Olson Unavailable Unavailable Mildred Laco SALES APPRENTICE-INTERNATIONAL STUDENT COUNSELOR, Mary Kay E Unavailable Arlette Le DO Primary Care Provider Mildred Laco SALES APPRENTICE-INTERNATIONAL STUDENT COUNSELOR, Mary Kay E Unavailable Trill SALES APPRENTICE-INTERNATIONAL STUDENT COUNSELOR, Nick C Primary Care Provider Mildred Laco SALES APPRENTICE-INTERNATIONAL STUDENT COUNSELOR, Mary Kay E Unavailable Trill SALES APPRENTICE-INTERNATIONAL STUDENT COUNSELOR, Nick C Primary Care Provider Mildred Laco SALES APPRENTICE-INTERNATIONAL STUDENT COUNSELOR, Mary Kay E Unavailable Trill SALES APPRENTICE-INTERNATIONAL STUDENT COUNSELOR, Nick C Primary Care Provider Dr. Hunter Ceja DO Attending Provider Trill MANAGER HOUSE-C, Nick Primary Care Provider Trishannon MANAGER HOUSE-C, Nick Referring Provider Dr. Hunter Ceja DO Referring Provider Dr. Hunter Ceja DO Other Provider WESLEY NICK C Primary Care Unavailable MADISON FAGAN Attending Unavail able NICK OLSON Referring Unavailable NICK OLSON Primary Care Unavailable DORA KATE Attending Unavailable DORA KATE Referring Unavailable TRILL, NICK C [...] Care Unavailable TRILL, NICK C Referring Unavailable TRILL, NICK C Attending Unavailable TRILL, NICK C Primary Care Unavailable COOK, DORA C Referring Unavailable TRILL, NICK C Primary Care Unavailable COOK, DORA C Referring Unavailable TRILL, NICK C Primary Care Unavailable Friend, Hunter Referring Unavailable Trill MANAGER HOUSE, Nick Primary Care Unavailable Friend, Hunter Attending Unavailable Trill MANAGER HOUSE, Nick Primary Care Unavailable Kareem López Attending Unavailabl e Friend, Hunter Attending Unavailable Trill MANAGER HOUSE, Nick Primary Care Unavailable Trill MANAGER HOUSE, Nick Referring Unavailable Trill MANAGER HOUSE, Nick Primary Care Unavailable Friend, Hunter Consulting Unavailable Friend, Hunter Attending Unavailable Trill MANAGER HOUSE, Nick Referring Unavailable Trill MANAGER HOUSE, Nick Primary Care Unavailable Friend, Hunter Attending Unavailable Trill MANAGER HOUSE, Nick Referring Unavailable Trill MANAGER HOUSE, Nick Primary Care Unavailable Trill MANAGER HOUSE, Nick Referring Unavailable Friend, Hunter Attending Unavailable Friend, Hunter Referring Unavailable Trill MANAGER HOUSE, Nick Primary Care Unavailable Friend, Hunter Attending Unavailable Friend, Hunter Referring Unavailable Trill MANAGER HOUSE, Nick Primary Care Unavailable Friend, Hunter Attending Unavailable Trill MANAGER HOUSE-C, Nick Primary Care Physician Dr. Kareem López DO Attending Physician Dr. Kareem López DO [facility] Physician Medications Current Medications Medication Drug Class(es) Dates Sig (Normalized) Sig (Original) amoxicillin 875 mg / clavulanate 125 mg oral tablet (1 source) Penicillin-class Antibacterial Start: 04-18-2025 celecoxib 200 mg oral capsule (2 sources) Nonsteroidal Anti-inflammatory Drug Start: 11-06-2021 take 1 capsule by mouth twice daily celecoxib (CELEBREX) 200 MG capsule TAKE 1 CAPSULE BY MOUTH TWICE DAILY 60 Capsule 2 11/06/2021 Active cetirizine hydrochloride 10 mg oral capsule (6 sources) Histamine-1 Receptor Antagonist Start: 09-25-2024 take 1 capsule by mouth once daily Start: 09-19-2024 take 1 tablet by elijah th once daily cetirizine (ZYRTEC) 10 MG tablet Take 1 Tablet (10 mg) by mouth daily 09/19/2024 Active cholecalciferol 1.25 mg oral capsule (4 sources) Vitamin D Start: 09-25-2024 take 1 capsule by mouth every week ergocalciferol 1.25 mg oral capsule (8 sources) Provitamin D2 Compound Start: 07-17-2024 take 1 capsule by mouth every week vitamin D (ERGOCALCIFERO L) 1.25 MG (40310 UT) capsule TAKE 1 CAPSULE BY MOUTH ONCE A WEEK 12 Capsule 07/17/2024 Active Start: 12-20-2023 vitamin D (ERG OCALCIFEROL) 1.25 MG (08835 UT) capsule TAKE 1 CAPSULE BY MOUTH EVERY 7 DAYS 12 Capsule 12/20/2023 Active Start: 08-31-2023 vitamin D (ERG OCALCIFEROL) 1.25 MG (42171 UT) capsule TAKE 1 CAPSULE BY MOUTH EVERY 7 DAYS 12 Capsule 08/31/2023 Active Start: 01-01-2023 vitamin D (ERG OCALCIFEROL) 1.25 MG (72852 UT) capsule Take 1 Capsule (50,000 Units) by mouth every 7 days 12 Capsule 0 01/01/2023 Active Start: 07-29-2022 vitamin D (ERG OCALCIFEROL) 1.25 MG (73482 UT) capsule Take 1 Capsule (50,000 Units) by mouth every 7 days 12 Capsule 0 07/29/2022 Active 24 hr mesalamine 375 mg extended release oral capsule (15 sources) Aminosalicylate Start: 11-17-2024 take 1 capsule by mo uth three times daily Start: 09-07-2024 End: 11-17-2024 take 1 capsule by mouth twice daily Mesalamine 0.375 gram capsule,extended release 24hr Discontinued 1.125 g PO TWICE A DAY September 24, 2024 11:00pm November 17, 2024 7:41am Start: 03-14-2024 take 2 capsules by m [...] 10/20/2021 Active nabumetone 500 mg oral tablet (12 sources) Nonsteroidal Anti-inflammatory Drug Start: 09-25-2024 take 1 tablet by mouth once daily Start: 08-10-2024 take 2 tablets by mo [...] omeprazole 20 mg delayed release oral capsule (14 sources) Proton Pump Inhibitor Start: take 1 capsule by mouth once daily Start: 01-17-2024 take 1 capsule by mo [...] TWICE DAILY 60 Capsule 3 08/25/2021 Active ondansetron 4 mg disintegrating oral tablet (1 source) Serotonin-3 Receptor Antagonist Start: 04-18-2025 take 1 tablet by mouth every eight hours as needed for nausea promethazine hydrochloride 12.5 mg oral tablet (14 sources) Phenothiazine Start: 10-24-2021 take 1 tablet by mouth every six hours as needed for nausea and vomiting 10 ml riTUXimab 10 mg/ml injection (4 sources) [id number] Cytolytic Antibody Start: 09-25-2024 sulfaSALAzine 500 mg oral tablet (2 sources) [...] 1 ml ustekinumab 90 mg/ml prefilled syringe (14 sources) Interleukin-12 Antagonist, Interleukin-23 Antagonist Start: 06-29-2024 Start: 02-21-2024 Ustekinumab (S TELARA) 90 MG/ML [...] (0.31 mg/kg/DOSE), Oral, ONCE, 1 dose, On Wed10/12/24 at 0830 Start: 09-28-2024 End: 09-28-2024 25 mg (0.31 mg/kg/DOSE), Ora l, ONCE, 1 dose, On Wed09/28/24 at 0930 Start: 03-30-2024 End: 03-30-2024 25 [...] mg/kg/DOSE), In travenous, ONCE, 1 dose, On Ema 09/28/24 at 0930, Administer over 5 Minutes, [...] mg/m2/DOSE), I ntravenous, ONCE, 1 dose, On [facility] 03/16/24 at 0900, Infuse first dose [...] 2.03 m2), Intravenous, ONCE, 1 dose, On Ema 10/12/24 at 0830, Infuse first dose at [...] 2.09 m2), Intravenous, ONCE, 1 dose, On [facility] 03/30/24 at 0900, Infuse first dose [...] ml/kg/DOSE), Intravenous, at 1,000 mL/hr, Starting on Wed10/12/24 at 0830, For 90 days Start: 10-12-2024 End: 10-13-2024 100 mL PRN (1.24 ml/kg/DOSE) , Intravenous, at 0-999 mL/hr, Line Care, Starting on Wed10/12/24 at 0755, For 90 days, Infuse 30 mL to flush med through tubing Start: 10-12-2024 End: 10-13-2024 2 mL PRN (0.0248 ml/kg/DOSE) , Intravenous, at 0-999 mL/hr, Line Care, Starting on Wed10/12/24 at 0755 Start: 09-28-2024 End: 09-29-2024 1,000 [...] at 0-999 mL/hr, Line Care, Starting on Wed03/16/24 at 0830, For 90 days, Infuse 30 [...] Date Documented Da te Episodic/Chronic Abdominal pain (11 sources) Generalized abdominal pain; Translations: [Generalized abdominal pain] Onset: 9 04-06-2019 Episodic Noninfectious gastroenteritis (10 sources) Indeterminate colitis; 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] Onset: 1 11-26-2020 Chronic Noninfectious gastroenteritis (12 sources) Inflammatory bowel disease; Translations: [Noninfective gastroenteritis and colitis, unspecified] Onset: 9 01-29-2020 Episodic Nutritional deficiencies (10 sources) Vitamin D deficiency; Translations: [Vitamin D deficiency, unspecified] Onset: 4 Chronic Osteoarthritis (3 sources) Arthritis of left wrist; Translations: [Primary osteoarthritis, left wrist] 08-31-2022 Chronic Other aftercare (16 sources) Long-term current use of 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; Translations: [Other correction (current) drug therapy] Onset: 9 10-20-2018 Episodic Other aftercare (6 sources) halfway current use of non-steroidal anti-inflammatory drug; Translations: [halfway (current) use of non-steroidal anti-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 (NSAID)] Onset: 4 03-30-2024 Episodic Other gastrointestinal disorders (1 source) Irritable bowel syndrome without diarrhea; Translations: [Irritable bowel syndrome, unspecified] Onset: 5 Chronic Other liver diseases (1 source) Elevated liver enzymes level; Translations: [Abnormal levels of other serum enzymes] 02-15-2023 Episodic Regional enteritis and ulcerative colitis (11 sources) Crohn's disease; Translations: [Crohn's disease, unspecified, without complications] Onset: 5 09-25-2024 Chronic Rheumatoid arthritis and related disease (20 sources) Juvenile rheumatoid polyarthritis (seronegative); Translations: [Unspecified juvenile rheumatoid arthritis of unspecified site] Onset: 7 Resolved: 4 Chronic Spondylosis; intervertebral disc disorders; other back problems (1 source) Lumbago with sciatica, right side; Translations: [Acute right-sided low back pain with right-sided sciatica] Onset: 5 Episodic Past or Other Problems Problem Classification Problem Date Documented Da te Episodic/Chronic Administrative/social admission (10 sources) Follow-up status; Translations: [Other specified counseling] Onset: 04-22-2021 04-22-2021 Episodic Allergic reactions (2 sources) Unspecified contact dermatitis, unspecified cause; Translations: [Unspecified contact dermatitis, unspecified cause] Onset: 01-24-2017 Episodic Gastrointestinal hemorrhage (1 source) Hemorrhage of anus and rectum; Translations: [Hemorrhage of anus and rectum] Onset: 06-03-2017 Episodic Joint disorders and dislocations; trauma-related (10 sources) Dislocation of joint of upper limb; Translations: [Unspecified dislocation of unspecified shoulder joint, initial encounter] Onset: 04-06-2016 Resolved: 02-03-2019 02-03-2019 Episodic Other aftercare (10 sources) Patient encounter status; Translations: [Encounter for therapeutic drug level monitoring] Onset: 04-07-2022 04-07-2022 Episodic Other aftercare (1 source) Other correction (current) drug therapy; Translations: [Encounter for long-term (current) use of other medications] Onset: 07-31-2024 Episodic Other aftercare (1 source) halfway (current) use of non-steroidal anti-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 (NSAID); Translations: [Encounter for long-term (current) use of non-steroidal anti-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 ] Onset: 07-31-2024 Episodic Other connective tissue disease (20 sources) Tenosynovitis; Translations: [Synovitis and tenosynovitis, unspecified] Onset: 06-07-2008 Resolved: 10-20-2018 10-20-2018 Episodic Other gastrointestinal disorders (10 sources) Diarrhea; Translations: [Diarrhea, unspecified] Onset: 01-26-2019 05-30-2019 Episodic Other non-traumatic joint disorders (10 sources) Wrist stiff; Translations: [Stiffness of unspecified wrist, not elsewhere classified] Onset: 11-22-2014 07-22-2017 Episodic Other non-traumatic joint disorders (10 sources) Chronic pain of left upper limb; Translations: [Pain in left shoulder] Onset: 02-03-2019 02-03-2019 Episodic Other non-traumatic joint disorders (4 sources) Shoulder pain; Translations: [Pain in left shoulder] Onset: 04-06-2016 Resolved: 11-17-2019 11-17-2019 Episodic Other non-traumatic joint disorders (10 sources) Pain in right knee; Translations: [Pain in joint, lower leg] Onset: 01-31-2016 Resolved: 10-20-2018 10-20-2018 Episodic Other non-traumatic joint disorders (6 sources) Pain in left shoulder; Translations: [Pain in joint, shoulder region] Onset: 04-06-2016 Resolved: 11-17-2019 11-17-2019 Episodic Other nutritional; endocrine; and metabolic disorders (16 sources) Weight loss; Translations: [Abnormal weight loss] Onset: 01-26-2019 Resolved: 11-17-2019 05-30-2019 Episodic Other nutritional; endocrine; and metabolic disorders (4 sources) Weight decreased; Translations: [Abnormal weight loss] Onset: 01-26-2019 Resolved: 11-17-2019 05-30-2019 Episodic Other screening for suspected conditions (not mental disorders or infectious disease) (20 sources) Immune system finding; Translations: [Abnormal immunological findings in specimens from other organs, systems and tissues] Onset: 03-30-2005 Resolved: 05-30-2019 10-20-2018 Episodic Other skin disorders (2 sources) Rash and other nonspecific skin eruption; Translations: [Rash and other nonspecific skin eruption] Onset: 01-24-2017 Episodic Skin and subcutaneous tissue infections (2 sources) Cellulitis of trunk, unspecified; Translations: [Cellulitis of trunk, unspecified] Onset: 01-24-2017 Episodic Sprains and strains (10 sources) Glenoid labrum tear; Translations: [Superior glenoid labrum lesion of unspecified shoulder, initial encounter] Onset: 04-06-2016 Resolved: 11-17-2019 11-17-2019 Episodic Results Test Name Value Interpretation Reference Range Facility Abdomen/Pelvis W IV Cont ONL Yon 04-18-2025 Abdomen/Pelvis W IV Cont ONLY [facility] Imaging Services [address] [place] [address] Abdomen/Pelvis W IV Cont ONLY MR#: [id number] Acct: [id number] Name: MC RICE Rep #: [id number] : 2000 M 24 From: Damien Funk MD PCP: FLORIDALMA Vasquez Status: REG ER Study: Abdomen/Pelvis W IV Cont ONLY Date of Exam: Exam# [id number] Ordering Dr: Kareem López DO PROCEDURE: ABDOMEN/PELVIS W IV CONT ONLY 04/18/2025 REASON FOR EXAM: ABDOMINAL PAIN, HISTORY OF CROHN'S TECHNIQUE: Procedure Code: CTABDPELIV Modality: CT Procedure: ABDOMEN/PELVIS W IV CONT ONLY Coronal and Sagittal reconstruction series were provided. CONTRAST: VOLUME: mL One or more dose reduction techniques were used (e.g., Automated exposure control, adjustment of the mA and/or kV according to patient size, use of iterative reconstruction technique. FINDINGS: The visualized lung bases are clear. The liver, gallbladder, pancreas, spleen, adrenal glands, kidneys, and urinary bladder appear unremarkable. A focus of lobulated high density material is noted within the cecum, with moderate wall thickening. No adjacent fat stranding. No evidence of a bowel obstruction. No bowel wall thickening. The appendix is visualized and unremarkable. No intraperitoneal free air or free fluid. No abdominal nor pelvic lymphadenopathy. No acute osseous abnormality. No acute fracture. Mild levoconvex lumbar scoliosis. CT/Abdomen/Pelvis W IV Cont ONLY IMPRESSION: Focal lobulated density within the cecum with moderate cecal wall thickening. This could represent inspissated stool. The cecal wall thickening could represent nonspecific colitis or typhlitis. No other acute process is identified. Reading Location: [id number] CC: MANAGER HOUSEShawn Olson; Dr. Kareem López, Laundry Operator Finishing: Signed Normal [facility] Absolute lymphocyte countOrd ered By: Kareem López on 04-18-2025 Lymphocytes Auto (Unsp spec) [#/Vol] 0.85 10*3/uL 0.83-4.51 [facility] Absolute neutrophil countOrd ered By: Kareem López on 04-18-2025 Neutrophils (Bld) [#/Vol] 12.9 10*3/uL High 2.0-7.7 [facility] Anion gap in Serum or Plasma Ordered By: Kareem López on 04-18-2025 Anion gap [Moles/Vol] 13 mmol/L 5- [facility] Automated lymphocyte count a s percentage of total leukocytesOrdered By: Kareem López on 04-18-2025 Lymphocytes/100 WBC Auto (Unsp spec) 5.9 % Low 19-41 [facility] BUN/creatinine ratioOrdered By: Kareem López on 04-18-2025 Urea nitrogen/Creatinine [Mass ratio] 13.4 mg/mg 10- [facility] Basophil percentageOrdered B y: Kareem López on 04-18-2025 Basophils/100 WBC (Bld) 0.3 % 0-1 [facility] Bilirubin Test strip Ql (U)O rdered By: Kareem López on 04-18-2025 Bilirubin Ql (U) Negative Negative [facility] Bilirubin, totalOrdered By: Kareem López on 04-18-2025 Bilirubin [Mass/Vol] 0.82 mg/dL 0.00-1.30 [facility] CBC W/Diff, Automatedon 03-29 Absolute Lymph 0.85 X10 3/uL Normal 0.83-4.51 [facility] Comment on above: Performed By: #### L 504.2610, L803.2200, L500.4050, L3200.1100, L3100.3425, L100.9950, L3100.1850, L800.1280, L5500.0550, L101.9900, L503.0106, L3000.0375, L501.2300, L503.6550, L501.6710, L3400.8000, L501.5200, L3300.1200, L5500.0300, L100.0100, L3410.9998, L3300.0960, L3100.6900, L3200.0500, L3410.2400, L501.9520, L503.6150 #### [facility] Laboratory [address] [place], [place], [address] Absolute Neut 12.9 X10 3/uL High 2.0-7.7 [facility] Comment on above: Performed By: #### L 504.2610, L803.2200, L500.4050, L3200.1100, L3100.3425, L100.9950, L3100.1850, L800.1280, L5500.0550, L101.9900, L503.0106, L3000.0375, L501.2300, L503.6550, L501.6710, L3400.8000, L501.5200, L3300.1200, L5500.0300, L100.0100, L3410.9998, L3300.0960, L3100.6900, L3200.0500, L3410.2400, L501.9520, L503.6150 #### [facility] [address] [place], [place], [address] Basophils/100 WBC (Bld) 0.3 % Normal 0-1 [facility] Comment on above: Performed By: #### L 504.2610, L803.2200, L500.4050, L3200.1100, L3100.3425, L100.9950, L3100.1850, L800.1280, L5500.0550, L101.9900, L503.0106, L3000.0375, L501.2300, L503.6550, L501.6710, L3400.8000, L501.5200, L3300.1200, L5500.0300, L100.0100, L3410.9998, L3300.0960, L3100.6900, L3200.0500, L3410.2400, L501.9520, L503.6150 #### [facility] [address] [place], [address] Eosinophils/100 WBC (Bld) 0.1 % Normal 0-5 [facility] Comment on above: Performed By: #### L 504.2610, L803.2200, L500.4050, L3200.1100, L3100.3425, L100.9950, L3100.1850, L800.1280, L5500.0550, L101.9900, L503.0106, L3000.0375, L501.2300, L503.6550, L501.6710, L3400.8000, L501.5200, L3300.1200, L5500.0300, L100.0100, L3410.9998, L3300.0960, L3100.6900, L3200.0500, L3410.2400, L501.9520, L503.6150 #### [facility] [address] [place], [address] Erythrocyte distribution width (RBC) [Ratio] 11.9 % Normal 11.6-14.6 [facility] Comment on above: Performed By: #### L 504.2610, L803.2200, L500.4050, L3200.1100, L3100.3425, L100.9950, L3100.1850, L800.1280, L5500.0550, L101.9900, L503.0106, L3000.0375, L501.2300, L503.6550, L501.6710, L3400.8000, L501.5200, L3300.1200, L5500.0300, L100.0100, L3410.9998, L3300.0960, L3100.6900, L3200.0500, L3410.2400, L501.9520, L503.6150 #### [facility] [address] [place], [address] Hematocrit (Bld) [Volume fraction] 44.0 % Normal 40-54 [facility] Comment on above: Performed By: #### L 504.2610, L803.2200, L500.4050, L3200.1100, L3100.3425, L100.9950, L3100.1850, L800.1280, L5500.0550, L101.9900, L503.0106, L3000.0375, L501.2300, L503.6550, L501.6710, L3400.8000, L501.5200, L3300.1200, L5500.0300, L100.0100, L3410.9998, L3300.0960, L3100.6900, L3200.0500, L3410.2400, L501.9520, L503.6150 #### [facility] [address] [place], [address] Hemoglobin (Bld) [Mass/Vol] 15.3 g/dL Normal 13.0-16.5 [facility] Comment on above: Performed By: #### L 504.2610, L803.2200, L500.4050, L3200.1100, L3100.3425, L100.9950, L3100.1850, L800.1280, L5500.0550, L101.9900, L503.0106, L3000.0375, L501.2300, L503.6550, L501.6710, L3400.8000, L501.5200, L3300.1200, L5500.0300, L100.0100, L3410.9998, L3300.0960, L3100.6900, L3200.0500, L3410.2400, L501.9520, L503.6150 #### [facility] [address] [place], [address] (357) IG% 0.300 Normal 0.0-0.9 [facility] Comment on above: Result Comment: IG% - Immature Granulocytes (promyelocytes, myelocytes and metamyelocytes) > 1% indicates that a LEFT SHIFT is Present. Performed By: #### L 504.2610, L803.2200, L500.4050, L3200.1100, L3100.3425, L100.9950, L3100.1850, L800.1280, L5500.0550, L101.9900, L503.0106, L3000.0375, L501.2300, L503.6550, L501.6710, L3400.8000, L501.5200, L3300.1200, L5500.0300, L100.0100, L3410.9998, L3300.0960, L3100.6900, L3200.0500, L3410.2400, L501.9520, L503.6150 #### [facility] [address] [place], [place], [id number] (520) Lymphocytes/100 WBC (Bld) 5.9 % Low 19-41 [facility] Comment on above: Performed By: #### L 504.2610, L803.2200, L500.4050, L3200.1100, L3100.3425, L100.9950, L3100.1850, L800.1280, L5500.0550, L101.9900, L503.0106, L3000.0375, L501.2300, L503.6550, L501.6710, L3400.8000, L501.5200, L3300.1200, L5500.0300, L100.0100, L3410.9998, L3300.0960, L3100.6900, L3200.0500, L3410.2400, L501.9520, L503.6150 #### [facility] [address] [place], [address] MCH (RBC) [Entitic mass] 29.9 pg Normal 27.0-32.0 [facility] Comment on above: Performed By: #### L 504.2610, L803.2200, L500.4050, L3200.1100, L3100.3425, L100.9950, L3100.1850, L800.1280, L5500.0550, L101.9900, L503.0106, L3000.0375, L501.2300, L503.6550, L501.6710, L3400.8000, L501.5200, L3300.1200, L5500.0300, L100.0100, L3410.9998, L3300.0960, L3100.6900, L3200.0500, L3410.2400, L501.9520, L503.6150 #### [facility] [address] [place], [address] MCHC (RBC) [Mass/Vol] 34.8 g/dL Normal 32-36 [facility] Comment on above: Performed By: #### L 504.2610, L803.2200, L500.4050, L3200.1100, L3100.3425, L100.9950, L3100.1850, L800.1280, L5500.0550, L101.9900, L503.0106, L3000.0375, L501.2300, L503.6550, L501.6710, L3400.8000, L501.5200, L3300.1200, L5500.0300, L100.0100, L3410.9998, L3300.0960, L3100.6900, L3200.0500, L3410.2400, L501.9520, L503.6150 #### [facility] [address] [place], [address] MCV (RBC) [Entitic vol] 86.1 fL Normal 80-94 [facility] Comment on above: Performed By: #### L 504.2610, L803.2200, L500.4050, L3200.1100, L3100.3425, L100.9950, L3100.1850, L800.1280, L5500.0550, L101.9900, L503.0106, L3000.0375, L501.2300, L503.6550, L501.6710, L3400.8000, L501.5200, L3300.1200, L5500.0300, L100.0100, L3410.9998, L3300.0960, L3100.6900, L3200.0500, L3410.2400, L501.9520, L503.6150 #### [facility] [address] [place], [address] Monocytes/100 WBC (Bld) 3.9 % Normal 0-10 [facility] Comment on above: Performed By: #### L 504.2610, L803.2200, L500.4050, L3200.1100, L3100.3425, L100.9950, L3100.1850, L800.1280, L5500.0550, L101.9900, L503.0106, L3000.0375, L501.2300, L503.6550, L501.6710, L3400.8000, L501.5200, L3300.1200, L5500.0300, L100.0100, L3410.9998, L3300.0960, L3100.6900, L3200.0500, L3410.2400, L501.9520, L503.6150 #### [facility] [address] [place], [address] Neutrophils/100 WBC (Bld) 89.5 % High 47-70 [facility] Comment on above: Performed By: #### L 504.2610, L803.2200, L500.4050, L3200.1100, L3100.3425, L100.9950, L3100.1850, L800.1280, L5500.0550, L101.9900, L503.0106, L3000.0375, L501.2300, L503.6550, L501.6710, L3400.8000, L501.5200, L3300.1200, L5500.0300, L100.0100, L3410.9998, L3300.0960, L3100.6900, L3200.0500, L3410.2400, L501.9520, L503.6150 #### [facility] [address] [place], [address] Nucleated RBC (Bld) [#/Vol] 0 10*3/uL Normal 0-5 [facility] Comment on above: Performed By: #### L 504.2610, L803.2200, L500.4050, L3200.1100, L3100.3425, L100.9950, L3100.1850, L800.1280, L5500.0550, L101.9900, L503.0106, L3000.0375, L501.2300, L503.6550, L501.6710, L3400.8000, L501.5200, L3300.1200, L5500.0300, L100.0100, L3410.9998, L3300.0960, L3100.6900, L3200.0500, L3410.2400, L501.9520, L503.6150 #### [facility] Laboratory [address] [place], [place], [id number] Platelet mean volume (Bld) [Entitic vol] 9.2 fL Normal 6.2-12.0 [facility] Comment on above: Performed By: #### L 504.2610, L803.2200, L500.4050, L3200.1100, L3100.3425, L100.9950, L3100.1850, L800.1280, L5500.0550, L101.9900, L503.0106, L3000.0375, L501.2300, L503.6550, L501.6710, L3400.8000, L501.5200, L3300.1200, L5500.0300, L100.0100, L3410.9998, L3300.0960, L3100.6900, L3200.0500, L3410.2400, L501.9520, L503.6150 #### [facility] Laboratory [address] [place], [address] Platelets (Bld) [#/Vol] 234 10*3/uL Normal 150-450 [facility] Comment on above: Performed By: #### L 504.2610, L803.2200, L500.4050, L3200.1100, L3100.3425, L100.9950, L3100.1850, L800.1280, L5500.0550, L101.9900, L503.0106, L3000.0375, L501.2300, L503.6550, L501.6710, L3400.8000, L501.5200, L3300.1200, L5500.0300, L100.0100, L3410.9998, L3300.0960, L3100.6900, L3200.0500, L3410.2400, L501.9520, L503.6150 #### [facility] Laboratory [address] [place], [place], [address] [phone] RBC (Bld) [#/Vol] 5.11 10*6/uL Normal 4.6-6.2 [facility] Comment on above: Performed By: #### L 504.2610, L803.2200, L500.4050, L3200.1100, L3100.3425, L100.9950, L3100.1850, L800.1280, L5500.0550, L101.9900, L503.0106, L3000.0375, L501.2300, L503.6550, L501.6710, L3400.8000, L501.5200, L3300.1200, L5500.0300, L100.0100, L3410.9998, L3300.0960, L3100.6900, L3200.0500, L3410.2400, L501.9520, L503.6150 #### [facility] Laboratory [address] [place], [address] RDW SD 38.0 fl Normal 35.1-43.9 [facility] Comment on above: Performed By: #### L 504.2610, L803.2200, L500.4050, L3200.1100, L3100.3425, L100.9950, L3100.1850, L800.1280, L5500.0550, L101.9900, L503.0106, L3000.0375, L501.2300, L503.6550, L501.6710, L3400.8000, L501.5200, L3300.1200, L5500.0300, L100.0100, L3410.9998, L3300.0960, L3100.6900, L3200.0500, L3410.2400, L501.9520, L503.6150 #### [facility] Laboratory [address] [place], [address] WBC (Bld) [#/Vol] 14.4 10*3/uL High 4.4-11.0 [facility] Comment on above: Performed By: #### L 504.2610, L803.2200, L500.4050, L3200.1100, L3100.3425, L100.9950, L3100.1850, L800.1280, L5500.0550, L101.9900, L503.0106, L3000.0375, L501.2300, L503.6550, L501.6710, L3400.8000, L501.5200, L3300.1200, L5500.0300, L100.0100, L3410.9998, L3300.0960, L3100.6900, L3200.0500, L3410.2400, L501.9520, L503.6150 #### [facility] Laboratory [address] [place], [address] Carbon dioxide, total [Moles /volume] in Central venous bloodOrdered By: Kareem López on 04-18-2025 CO2 [Moles/Vol] 23.0 mmol/L 21.0-32.0 [facility] Chloride assayOrdered By: Farhan López on 04-18-2025 Chloride [Moles/Vol] 101 mmol/L 98-108 [facility] Comprehensive Metabolic Prof ilon 04-18-2025 Albumin [Mass/Vol] 4.6 g/dL Normal 3.5-5.0 [facility] Comment on above: Performed By: #### L 504.2610, L803.2200, L500.4050, L3200.1100, L3100.3425, L100.9950, L3100.1850, L800.1280, L5500.0550, L101.9900, L503.0106, L3000.0375, L501.2300, L503.6550, L501.6710, L3400.8000, L501.5200, L3300.1200, L5500.0300, L100.0100, L3410.9998, L3300.0960, L3100.6900, L3200.0500, L3410.2400, L501.9520, L503.6150 #### [facility] Laboratory [address] [place], [place], [id number] Albumin/Globulin [Mass ratio] 1.7 {ratio} Normal 0.9-2.4 [facility] Comment on above: Performed By: #### L 504.2610, L803.2200, L500.4050, L3200.1100, L3100.3425, L100.9950, L3100.1850, L800.1280, L5500.0550, L101.9900, L503.0106, L3000.0375, L501.2300, L503.6550, L501.6710, L3400.8000, L501.5200, L3300.1200, L5500.0300, L100.0100, L3410.9998, L3300.0960, L3100.6900, L3200.0500, L3410.2400, L501.9520, L503.6150 #### [facility] Laboratory [address] [place], [place], [id number] ALK PHOS 58 U/L Normal 40-129 [facility] Comment on above: Performed By: #### L 504.2610, L803.2200, L500.4050, L3200.1100, L3100.3425, L100.9950, L3100.1850, L800.1280, L5500.0550, L101.9900, L503.0106, L3000.0375, L501.2300, L503.6550, L501.6710, L3400.8000, L501.5200, L3300.1200, L5500.0300, L100.0100, L3410.9998, L3300.0960, L3100.6900, L3200.0500, L3410.2400, L501.9520, L503.6150 #### [facility] Laboratory [address] [place], [place], [id number] ALT [Catalytic activity/Vol] 23 U/L Normal <=46 [facility] Comment on above: Performed By: #### L 504.2610, L803.2200, L500.4050, L3200.1100, L3100.3425, L100.9950, L3100.1850, L800.1280, L5500.0550, L101.9900, L503.0106, L3000.0375, L501.2300, L503.6550, L501.6710, L3400.8000, L501.5200, L3300.1200, L5500.0300, L100.0100, L3410.9998, L3300.0960, L3100.6900, L3200.0500, L3410.2400, L501.9520, L503.6150 #### [facility] Laboratory [address] [place], [place], [id number] AST [Catalytic activity/Vol] 24 U/L Normal <=37 [facility] Comment on above: Performed By: #### L 504.2610, L803.2200, L500.4050, L3200.1100, L3100.3425, L100.9950, L3100.1850, L800.1280, L5500.0550, L101.9900, L503.0106, L3000.0375, L501.2300, L503.6550, L501.6710, L3400.8000, L501.5200, L3300.1200, L5500.0300, L100.0100, L3410.9998, L3300.0960, L3100.6900, L3200.0500, L3410.2400, L501.9520, L503.6150 #### [facility] Laboratory [address] [place], [address] Bilirubin [Mass/Vol] 0.82 mg/dL Normal 0.00-1.30 [facility] Comment on above: Performed By: #### L 504.2610, L803.2200, L500.4050, L3200.1100, L3100.3425, L100.9950, L3100.1850, L800.1280, L5500.0550, L101.9900, L503.0106, L3000.0375, L501.2300, L503.6550, L501.6710, L3400.8000, L501.5200, L3300.1200, L5500.0300, L100.0100, L3410.9998, L3300.0960, L3100.6900, L3200.0500, L3410.2400, L501.9520, L503.6150 #### [facility] Laboratory [address] [place], [address] BUN/CRE 13.4 RATIO Normal 10-20 [facility] Comment on above: Performed By: #### L 504.2610, L803.2200, L500.4050, L3200.1100, L3100.3425, L100.9950, L3100.1850, L800.1280, L5500.0550, L101.9900, L503.0106, L3000.0375, L501.2300, L503.6550, L501.6710, L3400.8000, L501.5200, L3300.1200, L5500.0300, L100.0100, L3410.9998, L3300.0960, L3100.6900, L3200.0500, L3410.2400, L501.9520, L503.6150 #### [facility] Laboratory [address] [place], [place], [id number] (354) Calcium [Mass/Vol] 10.0 mg/dL Normal 7.6-11.0 [facility] Comment on above: Performed By: #### L 504.2610, L803.2200, L500.4050, L3200.1100, L3100.3425, L100.9950, L3100.1850, L800.1280, L5500.0550, L101.9900, L503.0106, L3000.0375, L501.2300, L503.6550, L501.6710, L3400.8000, L501.5200, L3300.1200, L5500.0300, L100.0100, L3410.9998, L3300.0960, L3100.6900, L3200.0500, L3410.2400, L501.9520, L503.6150 #### [facility] Laboratory [address] [place], [address] Chloride [Moles/Vol] 101 mmol/L Normal 98-108 [facility] Comment on above: Performed By: #### L 504.2610, L803.2200, L500.4050, L3200.1100, L3100.3425, L100.9950, L3100.1850, L800.1280, L5500.0550, L101.9900, L503.0106, L3000.0375, L501.2300, L503.6550, L501.6710, L3400.8000, L501.5200, L3300.1200, L5500.0300, L100.0100, L3410.9998, L3300.0960, L3100.6900, L3200.0500, L3410.2400, L501.9520, L503.6150 #### [facility] Laboratory [address] [place], [place], [id number] (704) CO2 [Moles/Vol] 23.0 mmol/L Normal 21.0-32.0 [facility] Comment on above: Performed By: #### L 504.2610, L803.2200, L500.4050, L3200.1100, L3100.3425, L100.9950, L3100.1850, L800.1280, L5500.0550, L101.9900, L503.0106, L3000.0375, L501.2300, L503.6550, L501.6710, L3400.8000, L501.5200, L3300.1200, L5500.0300, L100.0100, L3410.9998, L3300.0960, L3100.6900, L3200.0500, L3410.2400, L501.9520, L503.6150 #### [facility] Laboratory [address] [place], [place], [id number] Creatinine [Mass/Vol] 0.90 mg/dL Normal 0.70-1.20 [facility] Comment on above: Performed By: #### L 504.2610, L803.2200, L500.4050, L3200.1100, L3100.3425, L100.9950, L3100.1850, L800.1280, L5500.0550, L101.9900, L503.0106, L3000.0375, L501.2300, L503.6550, L501.6710, L3400.8000, L501.5200, L3300.1200, L5500.0300, L100.0100, L3410.9998, L3300.0960, L3100.6900, L3200.0500, L3410.2400, L501.9520, L503.6150 #### [facility] Laboratory [address] [place], [address] ECRCL 143.03 ml/min Normal 50-250 [facility] Comment on above: Performed By: #### L 504.2610, L803.2200, L500.4050, L3200.1100, L3100.3425, L100.9950, L3100.1850, L800.1280, L5500.0550, L101.9900, L503.0106, L3000.0375, L501.2300, L503.6550, L501.6710, L3400.8000, L501.5200, L3300.1200, L5500.0300, L100.0100, L3410.9998, L3300.0960, L3100.6900, L3200.0500, L3410.2400, L501.9520, L503.6150 #### [facility] Laboratory [address] [place], [address] GAP 13 Normal 5-15 [facility] Comment on above: Performed By: #### L 504.2610, L803.2200, L500.4050, L3200.1100, L3100.3425, L100.9950, L3100.1850, L800.1280, L5500.0550, L101.9900, L503.0106, L3000.0375, L501.2300, L503.6550, L501.6710, L3400.8000, L501.5200, L3300.1200, L5500.0300, L100.0100, L3410.9998, L3300.0960, L3100.6900, L3200.0500, L3410.2400, L501.9520, L503.6150 #### [facility] Laboratory [address] [place], [address] GFR/1.73 sq M.predicted among non-blacks MDRD (S/P/Bld) [Vol rate/Area] 122 mL/min/{1.73_m2} Normal >60 [facility] Comment on above: Result Comment: mL/m in/1.73m2 CKD-EPI Creatinine Equation (2020) Performed By: #### L 504.2610, L803.2200, L500.4050, L3200.1100, L3100.3425, L100.9950, L3100.1850, L800.1280, L5500.0550, L101.9900, L503.0106, L3000.0375, L501.2300, L503.6550, L501.6710, L3400.8000, L501.5200, L3300.1200, L5500.0300, L100.0100, L3410.9998, L3300.0960, L3100.6900, L3200.0500, L3410.2400, L501.9520, L503.6150 #### [facility] Laboratory [address] [place], [address] Globulin (S) [Mass/Vol] 2.7 g/dL Normal 2.2-4.2 [facility] Comment on above: Performed By: #### L 504.2610, L803.2200, L500.4050, L3200.1100, L3100.3425, L100.9950, L3100.1850, L800.1280, L5500.0550, L101.9900, L503.0106, L3000.0375, L501.2300, L503.6550, L501.6710, L3400.8000, L501.5200, L3300.1200, L5500.0300, L100.0100, L3410.9998, L3300.0960, L3100.6900, L3200.0500, L3410.2400, L501.9520, L503.6150 #### [facility] Laboratory [address] [place], [address] Glucose [Mass/Vol] 107 mg/dL High 70-99 [facility] Comment on above: Performed By: #### L 504.2610, L803.2200, L500.4050, L3200.1100, L3100.3425, L100.9950, L3100.1850, L800.1280, L5500.0550, L101.9900, L503.0106, L3000.0375, L501.2300, L503.6550, L501.6710, L3400.8000, L501.5200, L3300.1200, L5500.0300, L100.0100, L3410.9998, L3300.0960, L3100.6900, L3200.0500, L3410.2400, L501.9520, L503.6150 #### [facility] Laboratory [address] [place], [address] (769) Potassium [Moles/Vol] 3.6 mmol/L Normal 3.3-5.1 [facility] Comment on above: Performed By: #### L 504.2610, L803.2200, L500.4050, L3200.1100, L3100.3425, L100.9950, L3100.1850, L800.1280, L5500.0550, L101.9900, L503.0106, L3000.0375, L501.2300, L503.6550, L501.6710, L3400.8000, L501.5200, L3300.1200, L5500.0300, L100.0100, L3410.9998, L3300.0960, L3100.6900, L3200.0500, L3410.2400, L501.9520, L503.6150 #### [facility] Laboratory [address] [place], [address] (329) Sodium [Moles/Vol] 137 mmol/L Normal 133-145 [facility] Comment on above: Performed By: #### L 504.2610, L803.2200, L500.4050, L3200.1100, L3100.3425, L100.9950, L3100.1850, L800.1280, L5500.0550, L101.9900, L503.0106, L3000.0375, L501.2300, L503.6550, L501.6710, L3400.8000, L501.5200, L3300.1200, L5500.0300, L100.0100, L3410.9998, L3300.0960, L3100.6900, L3200.0500, L3410.2400, L501.9520, L503.6150 #### [facility] Laboratory [address] [place], [address] T PROT 7.3 g/dL Normal 5.9-8.4 [facility] Comment on above: Performed By: #### L 504.2610, L803.2200, L500.4050, L3200.1100, L3100.3425, L100.9950, L3100.1850, L800.1280, L5500.0550, L101.9900, L503.0106, L3000.0375, L501.2300, L503.6550, L501.6710, L3400.8000, L501.5200, L3300.1200, L5500.0300, L100.0100, L3410.9998, L3300.0960, L3100.6900, L3200.0500, L3410.2400, L501.9520, L503.6150 #### [facility] Laboratory [address] [place], [place], [id number] Urea nitrogen [Mass/Vol] 12 mg/dL Normal 4-19 [facility] Comment on above: Performed By: #### L 504.2610, L803.2200, L500.4050, L3200.1100, L3100.3425, L100.9950, L3100.1850, L800.1280, L5500.0550, L101.9900, L503.0106, L3000.0375, L501.2300, L503.6550, L501.6710, L3400.8000, L501.5200, L3300.1200, L5500.0300, L100.0100, L3410.9998, L3300.0960, L3100.6900, L3200.0500, L3410.2400, L501.9520, L503.6150 #### [facility] Laboratory [address] [place], [address] Emergency Department Summary on 04-18-2025 Emergency Department Summary [facility] Medical Records Department [address] [place] [address] Emergency Department Summary 04/18/25 MR#: [id number] Acct: [id number] Name: MC RICE Rep #: [id number] : 2000 24 From: Kareem López DO PCP: Nick Olson NP-C Status:REG ER Location: ED HPI History of Present Illness Chief Complaint: Abd Pain Narrative Narrative: Chief complaint and HPI: 24-year-old male with past medical history of Crohn's disease and rheumatoid arthritis on rituximab and Stelara who presents for evaluation of abdominal pain. Patient states he usually has diarrhea however became more constipated today with abdominal pain. Associated symptom is nausea and vomiting. He states this feels like a typical Crohn's flare. He denies any fever, chills, shortness of breath, chest pain, dysuria. Ate this morning. Follows with Dr. Ceja. 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 States he has had it for years. States they are having discussion about leaving it versus surgery. Does smoke marijuana. Review of systems: See HPI Medications: As listed on the chart Allergies: As listed on the chart PFSH: Per chart Vital signs: As listed on the chart. Reviewed. Physical exam: Gen: A O x3, NAD Head: Normocephalic, atraumatic Eyes: No sclera icterus, conjunctiva clear ENT: Dry mucous membranes CV: RRR, no murmurs Resp: Lungs CTA BL, no w/r/c GI: Abd soft, non-distended, mildly tender to palpation diffusely, no r/r/g Musc: Full ROM, no deformity Skin: Warm, dry Neuro: Alert, oriented, grossly intact, sensation intact Psych: Cooperative, appropriate mood and affect PFSH PFSH Medical History History of steroid therapy [...] Unkn own History mcg (50,000 unit) capsule nabumetone 500 [...] subcut Q5W 09/25/24 Unknown History syringe (Stelara) mesalamine 0.375 gram 0.75 g (2 x 0.375 gram) PO TID Unknown Rx capsule,extended release 24 hr #540 caps Allergy/AdvReac Type Severity Reaction Status Date / Time No Known Allergies Allergy Verified 04/18/25 18:43 Family History Sister Anxiety Mother Arthritis Grandmother Arthritis Autoimmune disorder Hypertension Hyperlipemia Grandfather COPD (chronic obstructive pulmonary disease) Aunt Breast cancer Depression Surgical History History of shoulder surgery History of esophagogastroduodenoscopy (EGD) Hx of colonoscopy Social History Smoking Status: Never smoker alcohol intake: never substance use type: marijuana what type of physical activity do you participate in: other details: physical therapy EXAM Physical Exam Const Vital Signs: 04/18/25 18:43 04/18/25 20:43 04/18/25 22:00 Temperature 98.4 F Temperature Source Oral Pulse Rate 68 72 88 Respiratory Rate 18 16 16 Blood Pressure 117/66 127/70 H 120/70 Blood Pressure Mean 83 89 86 Pulse Ox 100 100 98 Oxygen Delivery Method Room Air MDM MDM MDM Narrative Medical decision making narrative: 24-year-old male with past medical history of Crohn's disease and rheumatoid arthritis on rituximab and Stelara who presents for evaluation of abdominal pain. Patient states he usually has diarrhea however became more constipated today with abdominal pain. Associated symptom is nausea and vomiting. He states this feels like a typical Crohn's flare. Follows with Dr. Ceja. 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 States he has had it for years. States they are having discussion about leaving it versus surgery. On chart review, patient had a colonoscopy with Dr. Ceja on 10/16/2024. Showed stricture in the cecum. He had an EGD as well that showed erythematous mucosa and erythematous duodenum. Patient (more content not included)... Normal [facility] Eosinophil percentageOrdered By: Kareem López on 04-18-2025 Eosinophils/100 WBC (Bld) 0.1 % 0-5 [facility] Erythrocyte distribution wid th ratioOrdered By: Kareem López on 04-18-2025 Erythrocyte distribution width (RBC) [Ratio] 11.9 % 11.6-14.6 [facility] Erythrocyte distribution wid th standard deviationOrdered By: Kareem Csaiano on 04-18-2025 Erythrocyte distribution width (RBC) [Ratio] 38.0 fl 35.1-43.9 [facility] Glomerular filtration rate ( GFR) estimation/1.73 sq m using serum, plasma, or whole bOrdered By: Kareem López on 04-18-2025 GFR/1.73 sq M.predicted among non-blacks MDRD (S/P/Bld) [Vol rate/Area] 122 mL/min/{1.73_m2} >60 [facility] Comment on above: mL/min/1.73m2 CKD-EP I Creatinine Equation (2020) Hematocrit Auto (Bld) [Volum e fraction]Ordered By: Kareem López on 04-18-2025 Hematocrit (Bld) [Volume fraction] 44.0 % 40-54 [facility] Hemoglobin measurementOrdere d By: Kareem López on 04-18-2025 Hemoglobin (Bld) [Mass/Vol] 15.3 g/dL 13.0-16.5 [facility] Immature granulocytes/100 WB C Auto (Bld)Ordered By: [facility] on 04-18-2025 Immature granulocytes/100 WBC (Bld) 0.300 % 0.0-0.9 [facility] Comment on above: IG% - Immature Granu locytes (promyelocytes, myelocytes and metamyelocytes) > 1% indicates that a LEFT SHIFT is Present. Ketones Test strip Ql (U)Ord ered By: Kareemjose López on 04-18-2025 Ketones Ql (U) 50 mg/dl High Negative [facility] Laboratory - Chemistry and C hemistry - challengeOrdered By: [facility] MorrisnickyStephenie on 04-18-2025 AST [Catalytic activity/Vol] 24 U/L <38 [facility] Lactic Acidon 04-18-2025 Lactate [Moles/Vol] 1.1 mmol/L Normal 0.0-2.0 [facility] Comment on above: Order Comment: Y Performed By: #### L 504.2610, L803.2200, L500.4050, L3200.1100, L3100.3425, L100.9950, L3100.1850, L800.1280, L5500.0550, L101.9900, L503.0106, L3000.0375, L501.2300, L503.6550, L501.6710, L3400.8000, L501.5200, L3300.1200, L5500.0300, L100.0100, L3410.9998, L3300.0960, L3100.6900, L3200.0500, L3410.2400, L501.9520, L503.6150 #### [facility] Laboratory [address] [place], [place], [id number] Lactic acid measurementOrder ed By: Kareem López on 04-18-2025 Lactate [Moles/Vol] 1.1 mmol/L 0.0-2.0 [facility] Lipaseon 04-18-2025 Lipase [Catalytic activity/Vol] 19 U/L Normal - [facility] Comment on above: Result Comment: Georges gongora note: LIPASE revised reference range effective 22. New Lipase methodology. Expected to produce lower values than the previous assay method. NEW Reference Range: 13 - 75 U/L Performed By: #### L 504.2610, L803.2200, L500.4050, L3200.1100, L3100.3425, L100.9950, L3100.1850, L800.1280, L5500.0550, L101.9900, L503.0106, L3000.0375, L501.2300, L503.6550, L501.6710, L3400.8000, L501.5200, L3300.1200, L5500.0300, L100.0100, L3410.9998, L3300.0960, L3100.6900, L3200.0500, L3410.2400, L501.9520, L503.6150 #### [facility] [address] [place], [place], [id number] Lipase measurementOrdered By : Kareem López on 04-18-2025 Lipase [Catalytic activity/Vol] 19 U/L - [facility] Comment on above: Please note:LIPASE r evised reference range effective 22. New Lipase methodology. Expected to produce lower values than the previous assay method. NEW Reference Range: 13 - 75 U/L MCV (mean corpuscular volume ) determinationOrdered By: Kareem López on 04-18-2025 MCV (RBC) [Entitic vol] 86.1 fL 80-94 [facility] Mean corpuscular hemoglobin (MCH) determinationOrdered By: Kareem López on 04-18-2025 MCH (RBC) [Entitic mass] 29.9 pg 27.0-32.0 [facility] Mean corpuscular hemoglobin concentration (MCHC) determinationOrdered By: Kareem López on 04-18-2025 MCHC (RBC) [Mass/Vol] 34.8 g/dL 32-36 [facility] Mean platelet volume determi nationOrdered By: Kareem López on 04-18-2025 Platelet mean volume (Bld) [Entitic vol] 9.2 fL 6.2-12.0 [facility] Microscopic analysis of urin e for red blood cells (RBC)Ordered By: Kareem López on 04-18-2025 Microscopic analysis of urine for red blood cells (RBC) 0 SEEN /hpf 0-5 [facility] Monocyte percentageOrdered B y: Kareem López on 04-18-2025 Monocytes/100 WBC (Bld) 3.9 % 0-10 [facility] Mucus LM Ql (Urine sed)Order ed By: Kareem López on 04-18-2025 Mucus Ql (Urine sed) 0 SEEN /hpf [facility] Neutrophil percentageOrdered By: Kareem López on 04-18-2025 Neutrophils/100 WBC (Bld) 89.5 % High 47-70 [facility] Nitrite Test strip Ql (U)Ord ered By: Kareem López on 04-18-2025 Nitrite Ql (U) Negative Negative [facility] Nucleated red blood cell per centageOrdered By: Kareem López on 04-18-2025 Nucleated RBC/100 WBC (Bld) [Ratio] 0 % 0-5 [facility] Platelet countOrdered By: Farhan López on 04-18-2025 Platelets (Bld) [#/Vol] 234 10*3/uL 150-450 [facility] Potassium measurement (mass/ volume)Ordered By: Kareem López on 04-18-2025 Potassium (Unsp spec) [Mass/Vol] 3.6 mmol/L 3.3-5.1 [facility] Protein Test strip Ql (U)Ord ered By: Kareem López on 04-18-2025 Protein Ql (U) 30 mg/dl High Negative [facility] RBC Auto (Bld) [#/Vol]Ordere d By: Kareem López on 04-18-2025 RBC (Bld) [#/Vol] 5.11 10*6/uL 4.6-6.2 [facility] Serum creatinine measurement (mass/volume)Ordered By: Kareem López on 04-18-2025 Creatinine [Mass/Vol] 0.90 mg/dL 0.70-1.20 [facility] Serum globulin measurementOr dered By: Kareem López on 04-18-2025 Globulin (S) [Mass/Vol] 2.7 g/dL 2.2-4.2 [facility] Serum glucose measurement (m ass/volume)Ordered By: Kareem López on 04-18-2025 Glucose [Mass/Vol] 107 mg/dL High 70-99 [facility] Serum or plasma alanine lewis otransferase (ALT) measurementOrdered By: Kareem López on 04-18-2025 ALT [Catalytic activity/Vol] 23 U/L <47 [facility] Serum or plasma albumin bettina urement (mass/volume)Ordered By: Kareem Casiano on 04-18-2025 Albumin [Mass/Vol] 4.6 g/dL 3.5-5.0 [facility] Serum or plasma albumin/glob ulin mass ratioOrdered By: Kareem López on 04-18-2025 Albumin/Globulin [Mass ratio] 1.7 {ratio} 0.9-2.4 [facility] Serum or plasma alkaline armand sphatase measurementOrdered By: Kareem López on 04-18-2025 ALP [Catalytic activity/Vol] 58 U/L 40-129 [facility] Serum or plasma calcium bettina urement (mass/volume)Ordered By: Kareem Casiano on 04-18-2025 Calcium [Mass/Vol] 10.0 mg/dL 7.6-11.0 [facility] Serum or plasma urea nitroge n measurement (mass/volume)Ordered By: Kareem López on 04-18-2025 Urea nitrogen [Mass/Vol] 12 mg/dL 4-19 [facility] Sodium levelOrdered By: Dario López on 04-18-2025 Sodium [Moles/Vol] 137 mmol/L 133-145 [facility] Squamous epithelial cells de tection in urine sediment by light microscopyOrdered By: Kareem López on 04-18-2025 Epithelial cells.squamous LM Ql (Urine sed) 0-5 SEEN /hpf 0-5 [facility] Total proteinOrdered By: Alen jose López on 04-18-2025 Protein [Mass/Vol] 7.3 g/dL 5.9-8.4 [facility] Urinalysis, Completeon 04-18 BACTERIA 1+ /hpf Normal None Seen [facility] Comment on above: Order Comment: CLEAN CATCH Performed By: #### L 504.2610, L803.2200, L500.4050, L3200.1100, L3100.3425, L100.9950, L3100.1850, L800.1280, L5500.0550, L101.9900, L503.0106, L3000.0375, L501.2300, L503.6550, L501.6710, L3400.8000, L501.5200, L3300.1200, L5500.0300, L100.0100, L3410.9998, L3300.0960, L3100.6900, L3200.0500, L3410.2400, L501.9520, L503.6150 #### [facility] Laboratory [address] [place], [address] EPI,SQUAMOUS 0-5 SEEN Normal 0-5 [facility] Comment on above: Order Comment: CLEAN CATCH Performed By: #### L 504.2610, L803.2200, L500.4050, L3200.1100, L3100.3425, L100.9950, L3100.1850, L800.1280, L5500.0550, L101.9900, L503.0106, L3000.0375, L501.2300, L503.6550, L501.6710, L3400.8000, L501.5200, L3300.1200, L5500.0300, L100.0100, L3410.9998, L3300.0960, L3100.6900, L3200.0500, L3410.2400, L501.9520, L503.6150 #### [facility] [address] [place], [place], [id number] Mucus Ql (Urine sed) 0 SEEN Normal [facility] Comment on above: Order Comment: CLEAN CATCH Performed By: #### L 504.2610, L803.2200, L500.4050, L3200.1100, L3100.3425, L100.9950, L3100.1850, L800.1280, L5500.0550, L101.9900, L503.0106, L3000.0375, L501.2300, L503.6550, L501.6710, L3400.8000, L501.5200, L3300.1200, L5500.0300, L100.0100, L3410.9998, L3300.0960, L3100.6900, L3200.0500, L3410.2400, L501.9520, L503.6150 #### [facility] Laboratory [address] [place], [address] RBC 0 SEEN Normal 0-5 [facility] Comment on above: Order Comment: CLEAN CATCH Performed By: #### L 504.2610, L803.2200, L500.4050, L3200.1100, L3100.3425, L100.9950, L3100.1850, L800.1280, L5500.0550, L101.9900, L503.0106, L3000.0375, L501.2300, L503.6550, L501.6710, L3400.8000, L501.5200, L3300.1200, L5500.0300, L100.0100, L3410.9998, L3300.0960, L3100.6900, L3200.0500, L3410.2400, L501.9520, L503.6150 #### [facility] [address] [place], [place], [id number] WBC 0 SEEN Normal 0-5 [facility] Comment on above: Order Comment: CLEAN CATCH Performed By: #### L 504.2610, L803.2200, L500.4050, L3200.1100, L3100.3425, L100.9950, L3100.1850, L800.1280, L5500.0550, L101.9900, L503.0106, L3000.0375, L501.2300, L503.6550, L501.6710, L3400.8000, L501.5200, L3300.1200, L5500.0300, L100.0100, L3410.9998, L3300.0960, L3100.6900, L3200.0500, L3410.2400, L501.9520, L503.6150 #### [facility] [address] [place], [place], [id number] Urine clarityOrdered By: Alen López on 04-18-2025 Clarity (U) Sl. Cloudy Clear [facility] Urine color determinationOrd ered By: Kareem López on 04-18-2025 Color (U) Yellow Yellow [facility] Urine glucose detectionOrder ed By: Kareem López on 04-18-2025 Glucose Ql (U) Normal mg/dl Normal [facility] Urine leukocyte esterase det ection by dipstickOrdered By: Kareem López on 04-18-2025 Leukocyte esterase Test strip Ql (U) Negative Negative [facility] Urine pHOrdered By: Kareem Dickinson on 04-18-2025 pH (U) 7.0 [pH] 5.0 - 8.0 [facility] Urine sediment bacteria coun t by microscopy (number/high power field)Ordered By: Kareem López on 04-18-2025 Bacteria LM.HPF (Urine sed) [#/Area] 1 /[HPF] None Seen [facility] Urine specific gravity measu rementOrdered By: Kareem López on 04-18-2025 Specific gravity (U) [Rel density] 1.010 1.002-1.030 [facility] Urine urobilinogen measureme ntOrdered By: Kareem López on 04-18-2025 Urobilinogen Ql (U) 1 mg/dl High Normal [facility] White blood cell (WBC) count Ordered By: Kareem López on 04-18-2025 WBC (Bld) [#/Vol] 14.4 10*3/uL High 4.4-11.0 [facility] White blood cell countOrdere d By: Kareem López on 04-18-2025 White blood cell count 0 SEEN /hpf 0-5 [facility] Gastroenterology Visit Repor ton 11-17-2024 Gastroenterology Visit Report [facility] Gastroenterology [address] [place] [address] OFFICE VISIT Date of Service: 11/17/24 MR#: [id number] Acct: [id number] Name: MC RICE Rep #: [id number] : 2000 Provider: Hunter Ceja DO Age/Sex: 24/M [place] [facility] [place] Status: Signed Intake Vital Signs 10/16/24 10:45 [...] mg capsule,delayed 20 mg PO QDAY 09/25/24 11/17/24 Hi story release promethazine 12.5 mg tablet 12.5 mg PO Q6H PRN nausea and 08/2811/17/24 History vomiting rituximab 10 mg/mL See Rx Instructions .Route .COMPLE X 09/25/24 11/17/24 History concentrate,intravenous ustekinumab 90 mg/mL subcutaneous 90 mg subcut Q5W 09/25/24 5 History syringe (Stelara) mesalamine 0.375 gram 0.75 g (2 x 0.375 gram) PO TID 11/17/24 Rx capsule,extended release 24 hr #540 caps PFSH Medical History History of steroid therapy [...] to the office today for follow up. *I established 09.25.24 pt presents today to transfer care from [facility]. Pt has a long history of IBD and RA. Pt reports he was diagnosed with RA when he was 3 and is taking Rituximab infusions for this. Pt was diagnosed with IBD around 2019 and is on Mesalamine and Stelara Q5W. Pt reports his last colonoscopy was 4420-3397. Reports he has flares every few months. Pt reports daily nausea. [...] CRP Calp / Lact Serum / AB 09.25.2456 27 / - 13 / neg ROS Const Constitutional: No [...] cooperative, healt (more content not included)... Normal [facility] Enterography Abd/Ashu 05-14 -2025 Enterography Abd/Pel [facility] Imaging Services [address] [place], [place] [address] Enterography Abd/Pel MR#: [id number] Acct: [id number] Name: MC RICE Rep #: [id number] : 2000 M 24 From: Jermain Hobbs MD PCP: Nick Olson, DIYA-C Status: REG CLI Study: Enterography Abd/Pel Date of Exam: 11/08/24 Exam# [id number] Ordering Dr: Hunter Ceja DO PROCEDURE: ENTEROGRAPHY [...] 3. Additional description as above. Reading Location: [id number] CC: FLORIDALMA Olson; Hunter Ceja DO Laundry Operator Finishing: Signed Normal [facility] Colonoscopy Reporton 025 Colonoscopy Report [facility] Medical Records Department [address] [place] [address] Colonoscopy Report MR#: [id number] Acct: [id number] Name: MC RICE Rep #: [id number] : 2000 24 From: Hunter Ceja DO PCP: FLORIDALMA Vasquez [place] [facility] [place] Name: Mc Rice Procedure Date: 10/16/2024 [...] pathology results. Procedure Code(s): --- Professional --- 47262, Colonoscopy, flexible; with biopsy, single or multiple CPT copyright 2021 [employer]. All rights reserved. The codes documented in this report are preliminary and upon inspector dials review may be revised to meet current compliance requirements. Hunter Ceja DO 10/16/2024 1:01:34 PM This report has been signed electronically. Number of Addenda: 0 Note Initiated On: 10/16/2024 11:53 AM 10/16/24 1301 Date Hunter Ceja DO Cosigner Signature: Date (if indicated) CC: FLORIDALMA Olson; Hunter Ceja DO Date Dictated: 10/16/24 1153 Date Transcribed: Laundry Operator Finishing: RF Signed Normal [facility] EGD Reporton 10-16-2024 EGD Report [facility] Medical Records Department [address] [place] [address] EGD Report MR#: [id number] Acct: [id number] Name: MC RICE Rep #: [id number] : 2000 24 From: Hunter Ceja DO PCP: FLORIDALMA Vasquez [place] [facility] Name: Mc Rice Procedure Date: 10/16/2024 [...] pathology results. Procedure Code(s): --- Professional --- 54506, Small intestinal endoscopy, enteroscopy beyond second portion of duodenum, not including ileum; with biopsy, single or multiple CPT copyright 2021 [employer]. All rights reserved. The codes documented in this report are preliminary and upon inspector dials review may be revised to meet current compliance requirements. Hunter Ceja DO 10/16/2024 12:21:14 PM This report has been signed electronically. Number of Addenda: 0 Note Initiated On: 10/16/2024 11:43 AM 04/21/25 1221 Date Hunter Ceja DO Pankajniesha Signature: Date (if indicated) CC: MANAGER HOUSE-Darrel Olson; Hunter Ceja, DO Date Dictated: 10/16/24 1143 Date Transcribed: Laundry Operator Finishing: SUSSY Signed Normal [facility] Immunohistochemical Stainson 10-16-2024 Immunohistochemical Stains Patient Age/Sex Location Account Attending Physician MC RICE 24/M EN [id number] Hunter Ceja, DO Specimen: [id number] Received: 10/16/24-1432 Status: BRAYAN Sanchez Num: [id number] Spec Type: EGD BIOPSY Subm Dr: Hunter [...] developed and their performance characteristics determined by [facility] Laboratory. They may not have been cleared or approved by the U.S. Food and Drug Administration. The FDA has determined that such clearance or approval is not necessary. The above immunohistochemical/dualISH markers are ordered and reviewed by the Pathologist. GROSS DESCRIPTION A. Received in formalin in a container labeled with the patient's name, date of , and duodenum biopsy are 2 haley-pink fragments of mucosal tissue, each measuring 0.6 x 0.2 x 0.2 cm. Submitted in toto in A1. B. Received in formalin in a container labeled with the patient's name, date of , and gastric body biopsy are multiple haley-pink fragments of mucosal tissue [...] 0.3 cm. Submitted in toto in C1. [facility] 10/17/2024 CPT:74662h2,95900 Patient Age/Sex Location Account Attending Physician MC RICE 24/M EN [id number] Hunter Ceja DO Signed (signature on file) Dr. Fariba Ochoa DO 10/17/24 1242 [facility] Comment on above: Performed By: #### L 504.2610, L803.2200, L500.4050, L3200.1100, L3100.3425, L100.9950, L3100.1850, L800.1280, L5500.0550, L101.9900, L503.0106, L3000.0375, L501.2300, L503.6550, L501.6710, L3400.8000, L501.5200, L3300.1200, L5500.0300, L100.0100, L3410.9998, L3300.0960, L3100.6900, L3200.0500, L3410.2400, L501.9520, L503.6150 #### [facility] Laboratory [address] [place], [address] MR/POSTOP.ANEon 10-16-2024 MR/POSTOP.[facility] Medical Records Department [address] [place] [address] Anesthesia Postop Eval I 10/16/24 1235 MR#: [id number] Acct: [id number] Name: MC RICE GERARD Rep #: [id number] : 2000 24 From: Pablo Leon PCP: NICOLLE VasquezC Status:REG SDC Y Race: C Location: [place] [address] Anesthesia: Postop Eval I Current Vital Signs [...] Pablo Lewis Signature: Date CC: Signed Normal [facility] [id number] 10-16-2024 MR/POSTOPAN2 [facility] Medical Records Department [address] [place] [address] Anesthesia Postop Eval II 10/16/24 1235 MR#: [id number] Acct: [id number] Name: CM RICE Rep #: [id number] : 2000 24 From: Davin Sandhu MD PCP: Nick Olson MANAGER HOUSE-C Status:REG SDC Y Race: C Location: [place] [address] Anesthesia Postop Eval I Sum Anesthesia Postop [...] No Vomiting: No 10/16/24 1235 Date [facility] Date CC: Signed Normal [facility] COMPLETE BLOOD COUNT WITH DI EDGARon 10-12-2024 Basophil \P\ 0.04 10E3/???L Invalid Interpretation Code 0.02-0.06 [facility] Comment on above: Order Comment: Relea se to patient->Automatic Basophils/100 WBC (Bld) 0.7 % Invalid Interpretation Code 0.3-1.0 [facility] Comment on above: Order Comment: Relea se to patient->Automatic Eosinophil \P\ 0.15 10E3/???L Invalid Interpretation Code 0.04-0.31 [facility] Comment on above: Order Comment: Relea se to patient->Automatic Eosinophils/100 WBC (Bld) 2.7 % Invalid Interpretation Code 0.7-4.6 [facility] Comment on above: Order Comment: Relea se to patient->Automatic Erythrocyte distribution width (RBC) [Ratio] 12.5 % Invalid Interpretation Code 11.9-13.5 [facility] Comment on above: Order Comment: Relea se to patient->Automatic Hematocrit (Bld) [Volume fraction] 43.2 % Invalid Interpretation Code 40.6-50.2 [facility] Comment on above: Order Comment: Relea se to patient->Automatic Hemoglobin (Bld) [Mass/Vol] 14.7 g/dL Invalid Interpretation Code 13.5-17.0 [facility] Comment on above: Order Comment: Relea se to patient->Automatic Immature granulocytes/100 WBC (Bld) 0.2 % Invalid Interpretation Code 0.2-0.5 [facility] Comment on above: Order Comment: Relea se to patient->Automatic Result Comment: Jillian ture Granulocyte Percent includes promyelocytes, myelocytes,and metamyelocytes. IG% > 1.0 indicates a left shift is present. With automated differentials, bands are included in the neutrophil count and not in the Immature Granulocyte Percent. Lymphocyte \P\ 1.40 10E3/???L Invalid Interpretation Code 1.39-2.72 [facility] Comment on above: Order Comment: Relea se to patient->Automatic Lymphocytes/100 WBC (Bld) 24.9 % Invalid Interpretation Code 20.0-42.9 [facility] Comment on above: Order Comment: Relea se to patient->Automatic MCH (RBC) [Entitic mass] 29.8 pg Invalid Interpretation Code 27.3-31.2 [facility] Comment on above: Order Comment: Relea se to patient->Automatic MCHC 34.0 % Invalid Interpretation Code 32.1-34.8 [facility] Comment on above: Order Comment: Relea se to patient->Automatic MCV (RBC) [Entitic vol] 87.4 fL Invalid Interpretation Code 82.8-92.0 [facility] Comment on above: Order Comment: Relea se to patient->Automatic Monocyte \P\ 0.56 10E3/???L Invalid Interpretation Code 0.38-0.83 [facility] Comment on above: Order Comment: Relea se to patient->Automatic Monocytes/100 WBC (Bld) 9.9 % Invalid Interpretation Code 6.5-11.5 [facility] Comment on above: Order Comment: Relea se to patient->Automatic Neutrophil \P\ 3.47 10E3/???L Invalid Interpretation Code 2.07-6.00 [facility] Comment on above: Order Comment: Relea se to patient->Automatic Neutrophils/100 WBC (Bld) 61.6 % Invalid Interpretation Code 43.5-69.0 [facility] Comment on above: Order Comment: Relea se to patient->Automatic Nucleated RBC/100 WBC (Bld) [Ratio] 0.0 % Invalid Interpretation Code 0.0-0.0 [facility] Comment on above: Order Comment: Relea se to patient->Automatic Platelet mean volume (Bld) [Entitic vol] 9.0 fL Low 9.6-11.8 [facility] Comment on above: Order Comment: Relea se to patient->Automatic Platelets 195 10E3/???L Invalid Interpretation Code 150-400 [facility] Comment on above: Order Comment: Relea se to patient->Automatic RBC 4.94 10E6/???L Invalid Interpretation Code 4.59-5.58 [facility] Comment on above: Order Comment: Relea se to patient->Automatic WBC 5.6 10E3/???L Invalid Interpretation Code 4.5-9.6 [facility] Comment on above: Order Comment: Relea se to patient->Automatic COMPREHENSIVE METABOLIC PANE Ravi 10-12-2024 Albumin [Mass/Vol] 4.3 g/dL Invalid Interpretation Code 3.5-5.0 [facility] Comment on above: Order Comment: Relea se to patient->Automatic Result Comment: Veri fied By: [id number] ALP [Catalytic activity/Vol] 59 U/L Invalid Interpretation Code 40-129 [facility] Comment on above: Order Comment: Relea se to patient->Automatic Result Comment: Veri fied By: [id number] ALT [Catalytic activity/Vol] 27 U/L Invalid Interpretation Code <=46 [facility] Comment on above: Order Comment: Relea se to patient->Automatic Result Comment: Veri fied By: [id number] AST [Catalytic activity/Vol] 43 U/L High <=37 [facility] Comment on above: Order Comment: Relea se to patient->Automatic Result Comment: Veri fied By: [id number] BILI,TOTAL 0.6 mg/dL Invalid Interpretation Code <=1.0 [facility] Comment on above: Order Comment: Relea se to patient->Automatic Result Comment: Veri fied By: [id number] Calcium [Mass/Vol] 9.4 mg/dL Invalid Interpretation Code 7.6-11.0 [facility] Comment on above: Order Comment: Relea se to patient->Automatic Result Comment: Veri fied By: [id number] Chloride [Moles/Vol] 106 mmol/L Invalid Interpretation Code 96-108 [facility] Comment on above: Order Comment: Relea se to patient->Automatic Result Comment: Veri fied By: [id number] CO2 [Moles/Vol] 24.2 mmol/L Invalid Interpretation Code 22.0-29.0 [facility] Comment on above: Order Comment: Relea se to patient->Automatic Result Comment: Veri fied By: [id number] Creatinine [Mass/Vol] 0.95 mg/dL Invalid Interpretation Code 0.70-1.20 [facility] Comment on above: Order Comment: Relea se to patient->Automatic Result Comment: Veri fied By: [id number] GFR/1.73 sq M.predicted among non-blacks MDRD (S/P/Bld) [Vol rate/Area] mL/min/{1.73_m2} Invalid Interpretation Code >=60 [facility] Comment on above: Order Comment: Relea se to patient->Automatic Glucose [Mass/Vol] 86 mg/dL Invalid Interpretation Code 70-99 [facility] Comment on above: Order Comment: [...] plus Classic Symptoms of Diabetes Verified By: [id number] Potassium [Moles/Vol] 4.4 mmol/L Invalid Interpretation Code 3.3-5.1 [facility] Comment on above: Order Comment: Relea se to patient->Automatic Result Comment: Veri fied By: [id number] Protein [Mass/Vol] 6.7 g/dL Invalid Interpretation Code 5.9-8.4 [facility] Comment on above: Order Comment: Relea se to patient->Automatic Result Comment: Veri fied By: [id number] Sodium [Moles/Vol] 139 mmol/L Invalid Interpretation Code 133-145 [facility] Comment on above: Order Comment: Relea se to patient->Automatic Result Comment: Veri fied By: [id number] Urea nitrogen [Mass/Vol] 11 mg/dL Invalid Interpretation Code 4-19 [facility] Comment on above: Order Comment: Relea se to patient->Automatic Result Comment: Veri fied By: [id number] Complete Blood CountOrdered By: Amada Herndon on 10-12-2024 Basophils (Bld) [#/Vol] 0.04 10*3/uL [facility] Basophils/100 WBC (Bld) 0.7 % 0.3 - 1.0 % [facility] Eosinophils (Bld) [#/Vol] 0.15 10*3/uL [facility] Eosinophils/100 WBC (Bld) 2.7 % 0.7 - 4.6 % [facility] Erythrocyte distribution width (RBC) [Ratio] 12.5 % 11.9 - 13.5 % [facility] Hematocrit (Bld) [Volume fraction] 43.2 % 40.6 - 50.2 % [facility] Hemoglobin (Bld) [Mass/Vol] 14.7 g/dL 13.5 - 17.0 g/dL [facility] Immature granulocytes/100 WBC (Bld) 0.2 % 0.2 - 0.5 % [facility] Comment on above: Immature Granulocyte Percent includes promyelocytes, myelocytes,and metamyelocytes. IG% > 1.0 indicates a left shift is present. With automated differentials, bands are included in the neutrophil count and not in the Immature Granulocyte Percent. Interpretation and review of laboratory results Abnormal [facility] Lymphocytes (Bld) [#/Vol] 1.4 10*3/uL [facility] Lymphocytes/100 WBC (Bld) 24.9 % 20.0 - 42.9 % [facility] MCH (RBC) [Entitic mass] 29.8 pg 27.3 - 31.2 pg [facility] MCHC (RBC) [Mass/Vol] 34 % 32.1 - 34.8 % [facility] MCV (RBC) [Entitic vol] 87.4 fL 82.8 - 92.0 fL [facility] Monocytes (Bld) [#/Vol] 0.56 10*3/uL [facility] Monocytes/100 WBC (Bld) 9.9 % 6.5 - 11.5 % [facility] Neutrophils (Bld) [#/Vol] 3.47 10*3/uL [facility] Neutrophils/100 WBC (Bld) 61.6 % 43.5 - 69.0 % [facility] Nucleated RBC/100 WBC (Bld) [Ratio] 0 % 0.0 - 0.0 % [facility] Platelet mean volume (Bld) [Entitic vol] 9 fL Low 9.6 - 11.8 fL [facility] Platelets (Bld) [#/Vol] 195 10*3/uL [facility] RBC (Bld) [#/Vol] 4.94 10*6/uL [facility] WBC (Bld) [#/Vol] 5.6 10*3/uL [facility] Comprehensive metabolic pane lOrdered By: Background Lab on 10-12-2024 Albumin BCG dye [Mass/Vol] 4.3 g/dL 3.5 - 5.0 g/dL [facility] Comment on above: Verified By: [id number] ALP [Catalytic activity/Vol] 59 U/L 40 - 129 U/L [facility] Comment on above: Verified By: [id number] ALT With P-5'-P [Catalytic activity/Vol] 27 U/L [facility] - 46 U/L [facility] Comment on above: Verified By: [id number] AST With P-5'-P [Catalytic activity/Vol] 43 U/L High [facility] - 37 U/L [facility] Comment on above: Verified By: [id number] Bilirubin [Mass/Vol] 0.6 mg/dL [facility] - 1.0 mg/dL [facility] Comment on above: Verified By: [id number] Calcium [Mass/Vol] 9.4 mg/dL 7.6 - 11. 0 mg/dL [facility] Comment on above: Verified By: [id number] Chloride [Moles/Vol] 106 mmol/L 96 - 10 8 mmol/L [facility] [facility] Comment on above: Verified By: [id number] Creatinine [Mass/Vol] 0.95 mg/dL 0.70 - 1.20 mg/dL [facility] Comment on above: Verified By: [id number] eGFR - PINF [facility] Glucose [Mass/Vol] 86 mg/dL 70 - 99 mg/dL [facility] Comment on above: Criteria for Diagnos is of Diabetes: Fasting Specimen (no caloric intake for at least 8 hours): <100 mg/dL Normal 100-125 mg/dL Increased risk for Diabetes >125 mg/dL Diagnostic for Diabetes Random Glucose (any time of day without regard to last meal): > or = 200 mg/dL plus Classic Symptoms of Diabetes Verified By: [id number] HCO3 (P) [Moles/Vol] 24.2 mmol/L 22.0 - 29.0 mmol/L [facility] Comment on above: Verified By: [id number] Interpretation and review of laboratory results Abnormal [facility] Potassium (BldA) [Moles/Vol] 4.4 mmol/L 3.3 - 5.1 mmol/L [facility] Comment on above: Verified By: [id number] Protein [Mass/Vol] 6.7 g/dL 5.9 - 8.4 g/dL [facility] Comment on above: Verified By: [id number] Sodium [Moles/Vol] 139 mmol/L 133 - 145 mmol/L [facility] Comment on above: Verified By: [id number] Urea nitrogen [Mass/Vol] 11 mg/dL 4 - 19 mg/dL [facility] Comment on above: Verified By: [id number] [facility] ERYTHROCYTE SEDIMENTATION RA Courtney 10-12-2024 ESR (Bld) [Velocity] 2 mm/h Invalid Interpretation Code [facility] Comment on above: Order Comment: Relea se to patient->Automatic Result Comment: Newb orn: 0-2 mm/hr to puberty: 3-13 mm/hr Less than 50 years old: Male: <15 mm/hr Female: <20 mm/hr Greater than 50 years old: Male: <20 mm/hr Female: <30 mm/hr Erythrocyte Sedimentation Ra teOrdered By: Nerissa Bates on 10-12-2024 ESR Photometric method (Bld) [Velocity] 2 mm/hr [facility] Comment on above: : 0-2 mm/hr to puberty: 3-13 mm/hr Less than 50 years old: Male: <15 mm/hr Female: <20 mm/hr Greater than 50 years old: Male: <20 mm/hr Female: <30 mm/hr [facility] Progress Noteon 10-12-2024 [employer] Consultant Authentication Interface Message Text Returning patient Mc [...] He states that his IBD has been okay. 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 He had surgery on [...] to follow up between November 2020 and (more content not included)... Normal [facility] URINALYSIS, COMPLETEon 10-12 Bilirubin Ql (U) Negative Invalid Interpretation Code Negative [facility] Comment on above: Order Comment: Relea se to patient->Automatic Character Clear Invalid Interpretation Code [facility] Comment on above: Order Comment: Relea se to patient->Automatic Color (U) Light Yellow Invalid Interpretation Code [facility] Comment on above: Order Comment: Relea se to patient->Automatic Epithelial cells.squamous LM.HPF (Urine sed) [#/Area] /[HPF] Invalid Interpretation Code <=2 [facility] Comment on above: Order Comment: Relea se to patient->Automatic Glucose Ql (U) Normal Invalid Interpretation Code Normal [facility] Comment on above: Order Comment: Relea se to patient->Automatic Ketones Ql (U) Negative Invalid Interpretation Code Negative [facility] Comment on above: Order Comment: Relea se to patient->Automatic Leukocyte esterase Test strip Ql (U) Negative Invalid Interpretation Code Negative [facility] Comment on above: Order Comment: Relea se to patient->Automatic Nitrite Ql (U) Negative Invalid Interpretation Code Negative [facility] Comment on above: Order Comment: Relea se to patient->Automatic pH (U) 6.0 [pH] Invalid Interpretation Code 5.0-8.0 [facility] Comment on above: Order Comment: Relea se to patient->Automatic Protein Ql (U) Negative Invalid Interpretation Code Neg.-Trace [facility] Comment on above: Order Comment: Relea se to patient->Automatic RBC 0 /HPF Invalid Interpretation Code <=2 [facility] Comment on above: Order Comment: Relea se to patient->Automatic Renal Epithelial Cells 0 /HPF Invalid Interpretation Code <=2 [facility] Comment on above: Order Comment: Relea se to patient->Automatic Specific gravity (U) [Rel density] 1.008 Invalid Interpretation Code Reference Range: 1.005-1.030 [facility] Comment on above: Order Comment: Relea se to patient->Automatic Transitional Epithelial Cells 0 /HPF Invalid Interpretation Code <=2 [facility] Comment on above: Order Comment: Relea se to patient->Automatic Urobilinogen Normal Invalid Interpretation Code Normal [facility] Comment on above: Order Comment: Relea se to patient->Automatic Volume 12 mL Invalid Interpretation Code [facility] Comment on above: Order Comment: Relea se to patient->Automatic WBC (U) [#/Vol] /uL Invalid Interpretation Code <=2 [facility] Comment on above: Order Comment: Relea se to patient->Automatic Urinalysis, completeOrdered By: Susan Hammer on 10-12-2024 Bilirubin Ql (U) Negative Negative [facility] Character Clear [facility] Color (U) Light Yellow [facility] Epithelial cells.renal Computer assisted (U) [#/Area] 0 [facility] Epithelial cells.squamous Auto (Urine sed) [#/Area] [facility] Glucose Auto test strip Ql (U) Normal Normal [facility] Hemoglobin Auto test strip Ql (U) Negative Negative [facility] Ketones (U) [Mass/Vol] Negative Negative [facility] Leukocyte esterase Auto test strip Ql (U) Negative Negative Yrn/uL [facility] Nitrite Ql (U) Negative Negative [facility] pH (U) 6.0 [pH] 5.0 - 8.0 [facility] Protein (U) [Mass/Vol] Negative Neg.-Trace [facility] RBC Auto (Urine sed) [#/Area] 0 [facility] Specific gravity Refractometry automated (U) [Rel density] 1.008 Reference Range: 1.005-1.030 [facility] Specimen volume (U) 12 mL [facility] Transitional cells Computer assisted (U) [#/Area] 0 [facility] Urobilinogen (U) [Mass/Vol] Normal Normal mg/dL [facility] WBC Auto (Urine sed) [#/Area] [facility] Calprotectin, Stoolon [address] 27 ug/g Normal 0-120 [facility] Comment on above: Order Comment: Test( s) 471024-Flsc, Neutral; 779131-Hypq, Totalwas developed and its performance characteristicsdetermined by [employer]. It has not been cleared or approvedby the Food and Drug Administration. Result Comment: Conc entration Interpretation Follow-Up < 5 - 50 ug/g Normal None >50 -120 ug/g Borderline Re-evaluate in 4-6 weeks >120 ug/g Abnormal Repeat as clinically indicated Performed at: [address] [id number] Assistant Toddler Teacher: Tim Adkins PhD, Phone: [phone] Performed at: [address] [id number] Assistant Toddler Teacher: Antonio Liu MD, Phone: [phone] Performed By: #### L 504.2610, L803.2200, L500.4050, L3200.1100, L3100.3425, L100.9950, L3100.1850, L800.1280, L5500.0550, L101.9900, L503.0106, L3000.0375, L501.2300, L503.6550, L501.6710, L3400.8000, L501.5200, L3300.1200, L5500.0300, L100.0100, L3410.9998, L3300.0960, L3100.6900, L3200.0500, L3410.2400, L501.9520, L503.6150 #### [facility] Laboratory [address] [place], [address] Fecal Fat, Qualitativeon FATS, NEUTRAL Normal Normal . [facility] Comment on above: Order Comment: Test( s) [id number]-Yngf, Neutral; 909146-Jtab, Totalwas developed and its performance characteristicsdetermined by [employer]. It has not been cleared or approvedby the Food and Drug Administration. Result Comment: Norm al (<60 Droplets/HPF) Performed By: #### L 504.2610, L803.2200, L500.4050, L3200.1100, L3100.3425, L100.9950, L3100.1850, L800.1280, L5500.0550, L101.9900, L503.0106, L3000.0375, L501.2300, L503.6550, L501.6710, L3400.8000, L501.5200, L3300.1200, L5500.0300, L100.0100, L3410.9998, L3300.0960, L3100.6900, L3200.0500, L3410.2400, L501.9520, L503.6150 #### [facility] Laboratory [address] [place], [address] FATS, TOTAL Normal Normal . [facility] Comment on above: Order Comment: Test( s) [id number]-Hthu, Neutral; 573203-Esxc, Totalwas developed and its performance characteristicsdetermined by [employer]. It has not been cleared or approvedby the Food and Drug Administration. Result Comment: Norm al (<100 Droplets/HPF) Performed By: #### L 504.2610, L803.2200, L500.4050, L3200.1100, L3100.3425, L100.9950, L3100.1850, L800.1280, L5500.0550, L101.9900, L503.0106, L3000.0375, L501.2300, L503.6550, L501.6710, L3400.8000, L501.5200, L3300.1200, L5500.0300, L100.0100, L3410.9998, L3300.0960, L3100.6900, L3200.0500, L3410.2400, L501.9520, L503.6150 #### [facility] Laboratory [address] [place], [address] L7000.0750on 10-06-2024 P ELASTASE,FECA > 800 Normal >200 [facility] Comment on above: Result Comment: Resu lt Units: ug Elast./g Severe Pancreatic Insufficiency: <100 Moderate Pancreatic Insufficiency: 100 - 200 Normal: >200 Performed at: [address] [id number] Assistant Toddler Teacher: Antonio Liu MD, Phone: [phone] Performed By: #### L 504.2610, L803.2200, L500.4050, L3200.1100, L3100.3425, L100.9950, L3100.1850, L800.1280, L5500.0550, L101.9900, L503.0106, L3000.0375, L501.2300, L503.6550, L501.6710, L3400.8000, L501.5200, L3300.1200, L5500.0300, L100.0100, L3410.9998, L3300.0960, L3100.6900, L3200.0500, L3410.2400, L501.9520, L503.6150 #### [facility] Laboratory [address] [place], [address] Calprotectin stoolOrdered By : Hunter Ceja on 10-04-2024 Stool Calprotectin 27 ug/g 0-120 [facility] Comment on above: Concentration Interp retation Follow-Up< 5 - 50 ug/g Normal None>50 -120 ug/g Borderline Re-evaluate in 4-6 weeks >120 ug/g Abnormal Repeat as clinically indicatedPerformed at: [facility] [employer] [id number] Director: Tim Adkins PhD, Phone: [phone] at: [facility] [employer] [id number] Director: Antonio Liu MD, Phone: [phone] ENTERIC PATHOGEN PANEL STOOL on 10-04-2024 EP [...] VIBRIO Not Detected Yersinia Not Detected Normal [facility] Comment on above: Performed By: #### L 504.2610, L803.2200, L500.4050, L3200.1100, L3100.3425, L100.9950, L3100.1850, L800.1280, L5500.0550, L101.9900, L503.0106, L3000.0375, L501.2300, L503.6550, L501.6710, L3400.8000, L501.5200, L3300.1200, L5500.0300, L100.0100, L3410.9998, L3300.0960, L3100.6900, L3200.0500, L3410.2400, L501.9520, L503.6150 #### [facility] Laboratory [address] [place], [address] Elastase.pancreatic (Stl) [M ass/Mass]Ordered By: Hunter Ceja on 10-04-2024 Stool Pancreatic Elastase > 800 >200 [facility] Comment on above: Result Units: ug Hanna st./g Severe Pancreatic Insufficiency: <100 Moderate Pancreatic Insufficiency: 100 - 200 Normal: >200Performed at: [facility] [address] [id number] Director: Antonio Liu MD, Phone: [phone] Fat Ql (Stl)Ordered By: Anastacio Mendoza on 10-04-2024 Stool Total Fats Normal . [facility] Comment on above: Normal (<100 Droplet s/HPF) Lactoferrin IA Ql (Stl)Order ed By: Hunter Ceja on 10-04-2024 Stool Lactoferrin [facility] Lower GI hemoglobin IA Ql (S tl)Ordered By: Hunter Ceja on 10-04-2024 Stool Occult Blood (JOE) [facility] No Panel InformationOrdered By: Hunter Ceja on 10-04-2024 Stool Neutral Fats Normal . [facility] Comment on above: Normal (<60 Droplets /HPF) Stool Lactoferrin/WBCon 04-0 WBCST Normal Reference Ran ge = Negative Fecal WBC Lactoferrin Negative: No Fecal WBC Lactoferrin present Normal [facility] Comment on above: Performed By: #### L 504.2610, L803.2200, L500.4050, L3200.1100, L3100.3425, L100.9950, L3100.1850, L800.1280, L5500.0550, L101.9900, L503.0106, L3000.0375, L501.2300, L503.6550, L501.6710, L3400.8000, L501.5200, L3300.1200, L5500.0300, L100.0100, L3410.9998, L3300.0960, L3100.6900, L3200.0500, L3410.2400, L501.9520, L503.6150 #### [facility] [address] [place], [place], [id number] Stool Occult Blood iFOBon STOB Normal Reference Ran ge = Negative Immunochemical Fecal Occult Blood (iFOBT) method. Hemoccult Stl Ql IA Limitation: Menstrual bleeding, constipation bleeding, bleeding hemorrhoids, and urinary bleeding conditions may interfere with test. Occult Blood Negative Normal [facility] Comment on above: Performed By: #### L 504.2610, L803.2200, L500.4050, L3200.1100, L3100.3425, L100.9950, L3100.1850, L800.1280, L5500.0550, L101.9900, L503.0106, L3000.0375, L501.2300, L503.6550, L501.6710, L3400.8000, L501.5200, L3300.1200, L5500.0300, L100.0100, L3410.9998, L3300.0960, L3100.6900, L3200.0500, L3410.2400, L501.9520, L503.6150 #### [facility] Laboratory [address] [place], [address] Stool enteric pathogen panel by probe and target amplification methodOrdered By: Hunter Friend on 10-04-2024 Enteric Bacteriology [facility] ANCAon 10-03-2024 Atypical pANCA 1:40 Abnormal Neg:<1:20 [facility] Comment on above: Result Comment: The atypical pANCA pattern has been observed in a significant percentage of patients with ulcerative colitis, primary sclerosing cholangitis and autoimmune hepatitis. Performed By: #### L 504.2610, L803.2200, L500.4050, L3200.1100, L3100.3425, L100.9950, L3100.1850, L800.1280, L5500.0550, L101.9900, L503.0106, L3000.0375, L501.2300, L503.6550, L501.6710, L3400.8000, L501.5200, L3300.1200, L5500.0300, L100.0100, L3410.9998, L3300.0960, L3100.6900, L3200.0500, L3410.2400, L501.9520, L503.6150 #### [facility] Laboratory [address] [place], [place], [address] Cytoplasmic Ab <1:20 Normal Neg:<1:20 [facility] Comment on above: Performed By: #### L 504.2610, L803.2200, L500.4050, L3200.1100, L3100.3425, L100.9950, L3100.1850, L800.1280, L5500.0550, L101.9900, L503.0106, L3000.0375, L501.2300, L503.6550, L501.6710, L3400.8000, L501.5200, L3300.1200, L5500.0300, L100.0100, L3410.9998, L3300.0960, L3100.6900, L3200.0500, L3410.2400, L501.9520, L503.6150 #### [facility] Laboratory [address] [place], [address] Perinuclear Ab. <1:20 Normal Neg:<1:20 [facility] Comment on above: Result Comment: The presence of positive fluorescence exhibiting P-ANCA or C-ANCA patterns alone is not specific for the diagnosis of Javier's Granulomatosis (WG) or microscopic polyangiitis. Decisions about treatment should not be based solely on ANCA IFA results. The International ANCA Group Consensus recommends follow up testing of positive sera with both WI- 3 and MPO-ANCA enzyme immunoassays. As many as 5% serum samples are positive only by EIA. Ref. AM J Clin Pathol 1999;111:507-513. Performed By: #### L 504.2610, L803.2200, L500.4050, L3200.1100, L3100.3425, L100.9950, L3100.1850, L800.1280, L5500.0550, L101.9900, L503.0106, L3000.0375, L501.2300, L503.6550, L501.6710, L3400.8000, L501.5200, L3300.1200, L5500.0300, L100.0100, L3410.9998, L3300.0960, L3100.6900, L3200.0500, L3410.2400, L501.9520, L503.6150 #### [facility] Laboratory [address] [facility] [place], [address] [facility] 2024 A. ALTERNATA <0.10 Normal Class 0 [facility] Comment on above: Performed By: #### L 504.2610, L803.2200, L500.4050, L3200.1100, L3100.3425, L100.9950, L3100.1850, L800.1280, L5500.0550, L101.9900, L503.0106, L3000.0375, L501.2300, L503.6550, L501.6710, L3400.8000, L501.5200, L3300.1200, L5500.0300, L100.0100, L3410.9998, L3300.0960, L3100.6900, L3200.0500, L3410.2400, L501.9520, L503.6150 ####[facility] [address] [facility] [place], [place], [id number] BERMUDA GRASS <0.10 Normal Class 0 [facility] Comment on above: Performed By: #### L 504.2610, L803.2200, L500.4050, L3200.1100, L3100.3425, L100.9950, L3100.1850, L800.1280, L5500.0550, L101.9900, L503.0106, L3000.0375, L501.2300, L503.6550, L501.6710, L3400.8000, L501.5200, L3300.1200, L5500.0300, L100.0100, L3410.9998, L3300.0960, L3100.6900, L3200.0500, L3410.2400, L501.9520, L503.6150 ####[facility] [address] [place], [place], [address] [place] <0.10 Normal Class 0 [facility] Comment on above: Performed By: #### L 504.2610, L803.2200, L500.4050, L3200.1100, L3100.3425, L100.9950, L3100.1850, L800.1280, L5500.0550, L101.9900, L503.0106, L3000.0375, L501.2300, L503.6550, L501.6710, L3400.8000, L501.5200, L3300.1200, L5500.0300, L100.0100, L3410.9998, L3300.0960, L3100.6900, L3200.0500, L3410.2400, L501.9520, L503.6150 ####[facility] [address] [place], [place], [id number] CAT HAIR/DANDER <0.10 Normal Class 0 [facility] Comment on above: Performed By: #### L 504.2610, L803.2200, L500.4050, L3200.1100, L3100.3425, L100.9950, L3100.1850, L800.1280, L5500.0550, L101.9900, L503.0106, L3000.0375, L501.2300, L503.6550, L501.6710, L3400.8000, L501.5200, L3300.1200, L5500.0300, L100.0100, L3410.9998, L3300.0960, L3100.6900, L3200.0500, L3410.2400, L501.9520, L503.6150 ####[facility] [address] [place], [address] COMMENT Comment Normal . [facility] Comment on above: Result Comment: Brady velarde of Specific IgE Class Description of Class ----- < 0.10 0 Negative 0.10 - 0.31 0/I Equivocal/Low 0.32 - 0.55 I Low 0.56 - 1.40 II Moderate 1.41 - 3.90 III High 3.91 - 19.00 IV Very High 19.01 - 100.00 V Very High >100.00 Very High Performed By: #### L 504.2610, L803.2200, L500.4050, L3200.1100, L3100.3425, L100.9950, L3100.1850, L800.1280, L5500.0550, L101.9900, L503.0106, L3000.0375, L501.2300, L503.6550, L501.6710, L3400.8000, L501.5200, L3300.1200, L5500.0300, L100.0100, L3410.9998, L3300.0960, L3100.6900, L3200.0500, L3410.2400, L501.9520, L503.6150 ####[facility] [address] [place], [address] D FARINAE MITE 0.37 kU/L Abnormal Class I [facility] Comment on above: Performed By: #### L 504.2610, L803.2200, L500.4050, L3200.1100, L3100.3425, L100.9950, L3100.1850, L800.1280, L5500.0550, L101.9900, L503.0106, L3000.0375, L501.2300, L503.6550, L501.6710, L3400.8000, L501.5200, L3300.1200, L5500.0300, L100.0100, L3410.9998, L3300.0960, L3100.6900, L3200.0500, L3410.2400, L501.9520, L503.6150 ####[facility] [address] [place], [address] D PTERONYSSINUS 0.25 kU/L Abnormal Class 0/I [facility] Comment on above: Performed By: #### L 504.2610, L803.2200, L500.4050, L3200.1100, L3100.3425, L100.9950, L3100.1850, L800.1280, L5500.0550, L101.9900, L503.0106, L3000.0375, L501.2300, L503.6550, L501.6710, L3400.8000, L501.5200, L3300.1200, L5500.0300, L100.0100, L3410.9998, L3300.0960, L3100.6900, L3200.0500, L3410.2400, L501.9520, L503.6150 ####[facility] [address] [facility], [address] DOG EPITHELIA <0.10 Normal Class 0 [facility] Comment on above: Performed By: #### L 504.2610, L803.2200, L500.4050, L3200.1100, L3100.3425, L100.9950, L3100.1850, L800.1280, L5500.0550, L101.9900, L503.0106, L3000.0375, L501.2300, L503.6550, L501.6710, L3400.8000, L501.5200, L3300.1200, L5500.0300, L100.0100, L3410.9998, L3300.0960, L3100.6900, L3200.0500, L3410.2400, L501.9520, L503.6150 ####[facility] [address] [place], [place], [id number] ELM,AMER WHITE <0.10 Normal Class 0 [facility] Comment on above: Performed By: #### L 504.2610, L803.2200, L500.4050, L3200.1100, L3100.3425, L100.9950, L3100.1850, L800.1280, L5500.0550, L101.9900, L503.0106, L3000.0375, L501.2300, L503.6550, L501.6710, L3400.8000, L501.5200, L3300.1200, L5500.0300, L100.0100, L3410.9998, L3300.0960, L3100.6900, L3200.0500, L3410.2400, L501.9520, L503.6150 ####[facility] [address] [facility] [place], [address] Mouse Urine <0.10 Normal Class 0 [facility] Comment on above: Result Comment: Perf ormed at: [address] [id number] Assistant Toddler Teacher: Tim Adkins PhD, Phone: [phone] Performed at: [address] [id number] Assistant Toddler Teacher: Antonio Liu MD, Phone: [phone] Performed By: #### L 504.2610, L803.2200, L500.4050, L3200.1100, L3100.3425, L100.9950, L3100.1850, L800.1280, L5500.0550, L101.9900, L503.0106, L3000.0375, L501.2300, L503.6550, L501.6710, L3400.8000, L501.5200, L3300.1200, L5500.0300, L100.0100, L3410.9998, L3300.0960, L3100.6900, L3200.0500, L3410.2400, L501.9520, L503.6150 ####[facility] [address] [facility] [place], [place], [address] OAK, WHITE <0.10 Normal Class 0 [facility] Comment on above: Performed By: #### L 504.2610, L803.2200, L500.4050, L3200.1100, L3100.3425, L100.9950, L3100.1850, L800.1280, L5500.0550, L101.9900, L503.0106, L3000.0375, L501.2300, L503.6550, L501.6710, L3400.8000, L501.5200, L3300.1200, L5500.0300, L100.0100, L3410.9998, L3300.0960, L3100.6900, L3200.0500, L3410.2400, L501.9520, L503.6150 ####[facility] [address] [facility] [place], [place], [address] GAYE MORENO <0.10 Normal Class 0 [facility] Comment on above: Performed By: #### L 504.2610, L803.2200, L500.4050, L3200.1100, L3100.3425, L100.9950, L3100.1850, L800.1280, L5500.0550, L101.9900, L503.0106, L3000.0375, L501.2300, L503.6550, L501.6710, L3400.8000, L501.5200, L3300.1200, L5500.0300, L100.0100, L3410.9998, L3300.0960, L3100.6900, L3200.0500, L3410.2400, L501.9520, L503.6150 ####[facility] [address] [facility]. [place], [place], [address] RAGWEED /COM <0.10 Normal Class 0 [facility] Comment on above: Performed By: #### L 504.2610, L803.2200, L500.4050, L3200.1100, L3100.3425, L100.9950, L3100.1850, L800.1280, L5500.0550, L101.9900, L503.0106, L3000.0375, L501.2300, L503.6550, L501.6710, L3400.8000, L501.5200, L3300.1200, L5500.0300, L100.0100, L3410.9998, L3300.0960, L3100.6900, L3200.0500, L3410.2400, L501.9520, L503.6150 ####[facility] [id number] [facility]. [place], [place], [id number] Angiotensin Convert Enzymeon 10-03-2024 ANGIOT-CONV.ENZ 72 U/L Normal 14-82 [facility] Comment on above: Performed By: #### L 504.2610, L803.2200, L500.4050, L3200.1100, L3100.3425, L100.9950, L3100.1850, L800.1280, L5500.0550, L101.9900, L503.0106, L3000.0375, L501.2300, L503.6550, L501.6710, L3400.8000, L501.5200, L3300.1200, L5500.0300, L100.0100, L3410.9998, L3300.0960, L3100.6900, L3200.0500, L3410.2400, L501.9520, L503.6150 #### [facility] [address] [place], [place], [id number] Anti-Mitochondrial ABon -0 ANTIMITOCHON AB <20.0 Normal 0.0-20.0 [facility] Comment on above: Result Comment: Nega tive 0.0 - 20.0 Equivocal 20.1 - 24.9 Positive >24.9 Mitochondrial (M2) Antibodies are found in 90-96% of patients with primary biliary cirrhosis. Performed By: #### L 504.2610, L803.2200, L500.4050, L3200.1100, L3100.3425, L100.9950, L3100.1850, L800.1280, L5500.0550, L101.9900, L503.0106, L3000.0375, L501.2300, L503.6550, L501.6710, L3400.8000, L501.5200, L3300.1200, L5500.0300, L100.0100, L3410.9998, L3300.0960, L3100.6900, L3200.0500, L3410.2400, L501.9520, L503.6150 ####[facility] [address] [facility] [address] [place], [place], [id number] Anti-Smooth Muscle ABSon ANTISMOOTH MUSC 6 Units Normal 0-19 [facility] Comment on above: Result Comment: Nega tive 0 - 19 Weak positive 20 - 30 Moderate to strong positive >30 Actin Antibodies are found in 52-85% of patients with autoimmune hepatitis or chronic active hepatitis and in 22% of patients with primary biliary cirrhosis. Performed By: #### L 504.2610, L803.2200, L500.4050, L3200.1100, L3100.3425, L100.9950, L3100.1850, L800.1280, L5500.0550, L101.9900, L503.0106, L3000.0375, L501.2300, L503.6550, L501.6710, L3400.8000, L501.5200, L3300.1200, L5500.0300, L100.0100, L3410.9998, L3300.0960, L3100.6900, L3200.0500, L3410.2400, L501.9520, L503.6150 ####[facility] [address] [place], [address] Celiac Disease Profileon ENDOMYSIAL IGA Negative Normal Negative [facility] Comment on above: Performed By: #### L 504.2610, L803.2200, L500.4050, L3200.1100, L3100.3425, L100.9950, L3100.1850, L800.1280, L5500.0550, L101.9900, L503.0106, L3000.0375, L501.2300, L503.6550, L501.6710, L3400.8000, L501.5200, L3300.1200, L5500.0300, L100.0100, L3410.9998, L3300.0960, L3100.6900, L3200.0500, L3410.2400, L501.9520, L503.6150 #### [facility] [address] [facility] [place] [place], [address] tTG IGA <2 Normal 0-3 [facility] Comment on above: Result Comment: Nega tive 0 - 3 Weak Positive 4 - 10 Positive >10 Tissue Transglutaminase (tTG) has been identified as the endomysial antigen. Studies have demonstr- ated that endomysial IgA antibodies have over 99% specificity for gluten sensitive enteropathy. Performed By: #### L 504.2610, L803.2200, L500.4050, L3200.1100, L3100.3425, L100.9950, L3100.1850, L800.1280, L5500.0550, L101.9900, L503.0106, L3000.0375, L501.2300, L503.6550, L501.6710, L3400.8000, L501.5200, L3300.1200, L5500.0300, L100.0100, L3410.9998, L3300.0960, L3100.6900, L3200.0500, L3410.2400, L501.9520, L503.6150 #### [facility] [address] [place], [place], [id number] Haptoglobinon 10-03-2024 HAPTOGLOBIN 111 mg/dL Normal 17-317 [facility] Comment on above: Result Comment: Perf ormed at: - [facility] [id number] Assistant Toddler Teacher: Tim Adkins PhD, Phone: [phone] Performed at: - [facility] [id number] Assistant Toddler Teacher: Antonio iLu MD, Phone: [phone] Performed By: #### L 504.2610, L803.2200, L500.4050, L3200.1100, L3100.3425, L100.9950, L3100.1850, L800.1280, L5500.0550, L101.9900, L503.0106, L3000.0375, L501.2300, L503.6550, L501.6710, L3400.8000, L501.5200, L3300.1200, L5500.0300, L100.0100, L3410.9998, L3300.0960, L3100.6900, L3200.0500, L3410.2400, L501.9520, L503.6150 #### [facility] [address] [place], [place], [id number] Hepatitis Panel Acuteon COMMENT Comment Normal . [facility] Comment on above: Result Comment: Not infected with HCV unless early or acute infection is suspected (which may be delayed in an immunocompromised individual), or other evidence exists to indicate HCV infection. Performed By: #### L 504.2610, L803.2200, L500.4050, L3200.1100, L3100.3425, L100.9950, L3100.1850, L800.1280, L5500.0550, L101.9900, L503.0106, L3000.0375, L501.2300, L503.6550, L501.6710, L3400.8000, L501.5200, L3300.1200, L5500.0300, L100.0100, L3410.9998, L3300.0960, L3100.6900, L3200.0500, L3410.2400, L501.9520, L503.6150 #### [facility] [address] [facility]. [place], [place], [address] HEP B CORE,IgM Negative Normal Negative [facility] Comment on above: Performed By: #### L 504.2610, L803.2200, L500.4050, L3200.1100, L3100.3425, L100.9950, L3100.1850, L800.1280, L5500.0550, L101.9900, L503.0106, L3000.0375, L501.2300, L503.6550, L501.6710, L3400.8000, L501.5200, L3300.1200, L5500.0300, L100.0100, L3410.9998, L3300.0960, L3100.6900, L3200.0500, L3410.2400, L501.9520, L503.6150 #### [facility] [address] [facility]. [place], [place], [id number] HEP B SURF AG Negative Normal Negative [facility] Comment on above: Performed By: #### L 504.2610, L803.2200, L500.4050, L3200.1100, L3100.3425, L100.9950, L3100.1850, L800.1280, L5500.0550, L101.9900, L503.0106, L3000.0375, L501.2300, L503.6550, L501.6710, L3400.8000, L501.5200, L3300.1200, L5500.0300, L100.0100, L3410.9998, L3300.0960, L3100.6900, L3200.0500, L3410.2400, L501.9520, L503.6150 #### [facility] [address] [facility] [place], [address] HEP C VIRUS AB Non-Reactive Normal Non Reactive [facility] Comment on above: Performed By: #### L 504.2610, L803.2200, L500.4050, L3200.1100, L3100.3425, L100.9950, L3100.1850, L800.1280, L5500.0550, L101.9900, L503.0106, L3000.0375, L501.2300, L503.6550, L501.6710, L3400.8000, L501.5200, L3300.1200, L5500.0300, L100.0100, L3410.9998, L3300.0960, L3100.6900, L3200.0500, L3410.2400, L501.9520, L503.6150 #### [facility] [address] [facility] [place], [address] HEPATITIS A-IgM Negative Normal Negative [facility] Comment on above: Result Comment: A ne gative anti-HAV IgM result suggests no recent or current HAV infection. Performed By: #### L 504.2610, L803.2200, L500.4050, L3200.1100, L3100.3425, L100.9950, L3100.1850, L800.1280, L5500.0550, L101.9900, L503.0106, L3000.0375, L501.2300, L503.6550, L501.6710, L3400.8000, L501.5200, L3300.1200, L5500.0300, L100.0100, L3410.9998, L3300.0960, L3100.6900, L3200.0500, L3410.2400, L501.9520, L503.6150 #### [facility] [address] [place], [place], [id number] DENISE + Protein Elect, Serumon 10-03-2024 Albumin [Mass/Vol] 4.3 g/dL Normal 2.9-4.4 [facility] Comment on above: Order Comment: [id number] Performed By: #### L 504.2610, L803.2200, L500.4050, L3200.1100, L3100.3425, L100.9950, L3100.1850, L800.1280, L5500.0550, L101.9900, L503.0106, L3000.0375, L501.2300, L503.6550, L501.6710, L3400.8000, L501.5200, L3300.1200, L5500.0300, L100.0100, L3410.9998, L3300.0960, L3100.6900, L3200.0500, L3410.2400, L501.9520, L503.6150 #### [facility] [address] [place], [address] Albumin/Globulin [Mass ratio] 1.5 {ratio} Normal 0.7-1.7 [facility] Comment on above: Order Comment: [id number] Performed By: #### L 504.2610, L803.2200, L500.4050, L3200.1100, L3100.3425, L100.9950, L3100.1850, L800.1280, L5500.0550, L101.9900, L503.0106, L3000.0375, L501.2300, L503.6550, L501.6710, L3400.8000, L501.5200, L3300.1200, L5500.0300, L100.0100, L3410.9998, L3300.0960, L3100.6900, L3200.0500, L3410.2400, L501.9520, L503.6150 #### [facility] [address] [place], [address] HPWEA-9-JRWO 0.2 g/dL Normal 0.0-0.4 [facility] Comment on above: Order Comment: [id number] Performed By: #### L 504.2610, L803.2200, L500.4050, L3200.1100, L3100.3425, L100.9950, L3100.1850, L800.1280, L5500.0550, L101.9900, L503.0106, L3000.0375, L501.2300, L503.6550, L501.6710, L3400.8000, L501.5200, L3300.1200, L5500.0300, L100.0100, L3410.9998, L3300.0960, L3100.6900, L3200.0500, L3410.2400, L501.9520, L503.6150 #### [facility] [address] [facility] [place] [place], [address] LUNSP-1-SRFO 0.7 g/dL Normal 0.4-1.0 [facility] Comment on above: Order Comment: [id number] Performed By: #### L 504.2610, L803.2200, L500.4050, L3200.1100, L3100.3425, L100.9950, L3100.1850, L800.1280, L5500.0550, L101.9900, L503.0106, L3000.0375, L501.2300, L503.6550, L501.6710, L3400.8000, L501.5200, L3300.1200, L5500.0300, L100.0100, L3410.9998, L3300.0960, L3100.6900, L3200.0500, L3410.2400, L501.9520, L503.6150 #### [facility] [address] [facility] [place], [address] BETA GLOBULIN 0.9 g/dL Normal 0.7-1.3 [facility] Comment on above: Order Comment: [id number] Performed By: #### L 504.2610, L803.2200, L500.4050, L3200.1100, L3100.3425, L100.9950, L3100.1850, L800.1280, L5500.0550, L101.9900, L503.0106, L3000.0375, L501.2300, L503.6550, L501.6710, L3400.8000, L501.5200, L3300.1200, L5500.0300, L100.0100, L3410.9998, L3300.0960, L3100.6900, L3200.0500, L3410.2400, L501.9520, L503.6150 #### [facility] [address] [place], [address] GAMMA GLOBULIN 1.1 g/dL Normal 0.4-1.8 [facility] Comment on above: Order Comment: [id number] Performed By: #### L 504.2610, L803.2200, L500.4050, L3200.1100, L3100.3425, L100.9950, L3100.1850, L800.1280, L5500.0550, L101.9900, L503.0106, L3000.0375, L501.2300, L503.6550, L501.6710, L3400.8000, L501.5200, L3300.1200, L5500.0300, L100.0100, L3410.9998, L3300.0960, L3100.6900, L3200.0500, L3410.2400, L501.9520, L503.6150 #### [facility] [address] [facility] [place], [address] Globulin (S) [Mass/Vol] 3.0 g/dL Normal 2.2-3.9 [facility] Comment on above: Order Comment: [id number] Performed By: #### L 504.2610, L803.2200, L500.4050, L3200.1100, L3100.3425, L100.9950, L3100.1850, L800.1280, L5500.0550, L101.9900, L503.0106, L3000.0375, L501.2300, L503.6550, L501.6710, L3400.8000, L501.5200, L3300.1200, L5500.0300, L100.0100, L3410.9998, L3300.0960, L3100.6900, L3200.0500, L3410.2400, L501.9520, L503.6150 #### [facility] [address] [place], [place], [address] DENISE RESULT,S Comment Normal . [facility] Comment on above: Order Comment: [id number] Result Comment: No m onoclonality detected. Performed By: #### L 504.2610, L803.2200, L500.4050, L3200.1100, L3100.3425, L100.9950, L3100.1850, L800.1280, L5500.0550, L101.9900, L503.0106, L3000.0375, L501.2300, L503.6550, L501.6710, L3400.8000, L501.5200, L3300.1200, L5500.0300, L100.0100, L3410.9998, L3300.0960, L3100.6900, L3200.0500, L3410.2400, L501.9520, L503.6150 #### [facility] [address] [place], [address] IMMUNOGLOB A QN 141 mg/dL Normal 90-386 [facility] Comment on above: Order Comment: [id number] Performed By: #### L 504.2610, L803.2200, L500.4050, L3200.1100, L3100.3425, L100.9950, L3100.1850, L800.1280, L5500.0550, L101.9900, L503.0106, L3000.0375, L501.2300, L503.6550, L501.6710, L3400.8000, L501.5200, L3300.1200, L5500.0300, L100.0100, L3410.9998, L3300.0960, L3100.6900, L3200.0500, L3410.2400, L501.9520, L503.6150 #### [facility] [address] [facility]. [place], [place], [id number] IMMUNOGLOB M QN 82 mg/dL Normal 20-172 [facility] Comment on above: Order Comment: [id number] Performed By: #### L 504.2610, L803.2200, L500.4050, L3200.1100, L3100.3425, L100.9950, L3100.1850, L800.1280, L5500.0550, L101.9900, L503.0106, L3000.0375, L501.2300, L503.6550, L501.6710, L3400.8000, L501.5200, L3300.1200, L5500.0300, L100.0100, L3410.9998, L3300.0960, L3100.6900, L3200.0500, L3410.2400, L501.9520, L503.6150 #### [facility] [address] [facility]. [place], [place], [address] M-Darío Not Observed Normal Not Observed [facility] Comment on above: Order Comment: [id number] Performed By: #### L 504.2610, L803.2200, L500.4050, L3200.1100, L3100.3425, L100.9950, L3100.1850, L800.1280, L5500.0550, L101.9900, L503.0106, L3000.0375, L501.2300, L503.6550, L501.6710, L3400.8000, L501.5200, L3300.1200, L5500.0300, L100.0100, L3410.9998, L3300.0960, L3100.6900, L3200.0500, L3410.2400, L501.9520, L503.6150 #### [facility] [address] [place], [place], [address] NOTE: Comment Normal . [facility] Comment on above: Order Comment: [id number] Result Comment: Prot ein electrophoresis scan will follow via computer, mail, or shoe planner delivery. Performed By: #### L 504.2610, L803.2200, L500.4050, L3200.1100, L3100.3425, L100.9950, L3100.1850, L800.1280, L5500.0550, L101.9900, L503.0106, L3000.0375, L501.2300, L503.6550, L501.6710, L3400.8000, L501.5200, L3300.1200, L5500.0300, L100.0100, L3410.9998, L3300.0960, L3100.6900, L3200.0500, L3410.2400, L501.9520, L503.6150 #### [facility] [address] [facility] [address] [place], [place], [id number] Protein [Mass/Vol] 7.3 g/dL Normal 6.0-8.5 [facility] Comment on above: Order Comment: [id number] Performed By: #### L 504.2610, L803.2200, L500.4050, L3200.1100, L3100.3425, L100.9950, L3100.1850, L800.1280, L5500.0550, L101.9900, L503.0106, L3000.0375, L501.2300, L503.6550, L501.6710, L3400.8000, L501.5200, L3300.1200, L5500.0300, L100.0100, L3410.9998, L3300.0960, L3100.6900, L3200.0500, L3410.2400, L501.9520, L503.6150 #### [facility] [address] [facility] [place], [place], [id number] IgG Subclasseson 10-03-2024 IgG, SUBCLASS 1 607 mg/dL Normal 248-810 [facility] Comment on above: Performed By: #### L 504.2610, L803.2200, L500.4050, L3200.1100, L3100.3425, L100.9950, L3100.1850, L800.1280, L5500.0550, L101.9900, L503.0106, L3000.0375, L501.2300, L503.6550, L501.6710, L3400.8000, L501.5200, L3300.1200, L5500.0300, L100.0100, L3410.9998, L3300.0960, L3100.6900, L3200.0500, L3410.2400, L501.9520, L503.6150 #### [facility] [address] [facility] [place], [place], [address] IgG, SUBCLASS 2 197 mg/dL Normal 130-555 [facility] Comment on above: Performed By: #### L 504.2610, L803.2200, L500.4050, L3200.1100, L3100.3425, L100.9950, L3100.1850, L800.1280, L5500.0550, L101.9900, L503.0106, L3000.0375, L501.2300, L503.6550, L501.6710, L3400.8000, L501.5200, L3300.1200, L5500.0300, L100.0100, L3410.9998, L3300.0960, L3100.6900, L3200.0500, L3410.2400, L501.9520, L503.6150 #### [facility] [address] [facility] [place], [address] IgG, SUBCLASS 3 62 mg/dL Normal 15-102 [facility] Comment on above: Performed By: #### L 504.2610, L803.2200, L500.4050, L3200.1100, L3100.3425, L100.9950, L3100.1850, L800.1280, L5500.0550, L101.9900, L503.0106, L3000.0375, L501.2300, L503.6550, L501.6710, L3400.8000, L501.5200, L3300.1200, L5500.0300, L100.0100, L3410.9998, L3300.0960, L3100.6900, L3200.0500, L3410.2400, L501.9520, L503.6150 #### [facility] [address] [place], [place], [id number] (877) IgG, SUBCLASS 4 30 mg/dL Normal 2-96 [facility] Comment on above: Performed By: #### L 504.2610, L803.2200, L500.4050, L3200.1100, L3100.3425, L100.9950, L3100.1850, L800.1280, L5500.0550, L101.9900, L503.0106, L3000.0375, L501.2300, L503.6550, L501.6710, L3400.8000, L501.5200, L3300.1200, L5500.0300, L100.0100, L3410.9998, L3300.0960, L3100.6900, L3200.0500, L3410.2400, L501.9520, L503.6150 #### [facility] [address] [place], [place], [id number] (380) IGG,QUANT 1117 mg/dL Normal 603-1613 [facility] Comment on above: Performed By: #### L 504.2610, L803.2200, L500.4050, L3200.1100, L3100.3425, L100.9950, L3100.1850, L800.1280, L5500.0550, L101.9900, L503.0106, L3000.0375, L501.2300, L503.6550, L501.6710, L3400.8000, L501.5200, L3300.1200, L5500.0300, L100.0100, L3410.9998, L3300.0960, L3100.6900, L3200.0500, L3410.2400, L501.9520, L503.6150 #### [facility] [address] [facility] [place], [place], [address] Immunoglobulins G/A/M/Juan IMMUNOGLOB E QN 79 IU/mL Normal 6-495 [facility] Comment on above: Order Comment: [id number] Performed By: #### L 504.2610, L803.2200, L500.4050, L3200.1100, L3100.3425, L100.9950, L3100.1850, L800.1280, L5500.0550, L101.9900, L503.0106, L3000.0375, L501.2300, L503.6550, L501.6710, L3400.8000, L501.5200, L3300.1200, L5500.0300, L100.0100, L3410.9998, L3300.0960, L3100.6900, L3200.0500, L3410.2400, L501.9520, L503.6150 #### [facility] [address] [facility] [place], [address] L5500.0550on 10-03-2024 BEEF <0.10 Normal Class 0 [facility] Comment on above: Performed By: #### L 504.2610, L803.2200, L500.4050, L3200.1100, L3100.3425, L100.9950, L3100.1850, L800.1280, L5500.0550, L101.9900, L503.0106, L3000.0375, L501.2300, L503.6550, L501.6710, L3400.8000, L501.5200, L3300.1200, L5500.0300, L100.0100, L3410.9998, L3300.0960, L3100.6900, L3200.0500, L3410.2400, L501.9520, L503.6150 ####[facility] [address] [place], [place], [id number] CHOCOLATE <0.10 Normal Class 0 [facility] Comment on above: Performed By: #### L 504.2610, L803.2200, L500.4050, L3200.1100, L3100.3425, L100.9950, L3100.1850, L800.1280, L5500.0550, L101.9900, L503.0106, L3000.0375, L501.2300, L503.6550, L501.6710, L3400.8000, L501.5200, L3300.1200, L5500.0300, L100.0100, L3410.9998, L3300.0960, L3100.6900, L3200.0500, L3410.2400, L501.9520, L503.6150 ####[facility] [address] [facility] [place], [place], [id number] CODFISH <0.10 Normal Class 0 [facility] Comment on above: Performed By: #### L 504.2610, L803.2200, L500.4050, L3200.1100, L3100.3425, L100.9950, L3100.1850, L800.1280, L5500.0550, L101.9900, L503.0106, L3000.0375, L501.2300, L503.6550, L501.6710, L3400.8000, L501.5200, L3300.1200, L5500.0300, L100.0100, L3410.9998, L3300.0960, L3100.6900, L3200.0500, L3410.2400, L501.9520, L503.6150 ####[facility] [address] [place], [place], [id number] CORN <0.10 Normal Class 0 [facility] Comment on above: Performed By: #### L 504.2610, L803.2200, L500.4050, L3200.1100, L3100.3425, L100.9950, L3100.1850, L800.1280, L5500.0550, L101.9900, L503.0106, L3000.0375, L501.2300, L503.6550, L501.6710, L3400.8000, L501.5200, L3300.1200, L5500.0300, L100.0100, L3410.9998, L3300.0960, L3100.6900, L3200.0500, L3410.2400, L501.9520, L503.6150 ####[facility] [address] [place], [address] EGG, WHOLE <0.10 Normal Class 0 [facility] Comment on above: Performed By: #### L 504.2610, L803.2200, L500.4050, L3200.1100, L3100.3425, L100.9950, L3100.1850, L800.1280, L5500.0550, L101.9900, L503.0106, L3000.0375, L501.2300, L503.6550, L501.6710, L3400.8000, L501.5200, L3300.1200, L5500.0300, L100.0100, L3410.9998, L3300.0960, L3100.6900, L3200.0500, L3410.2400, L501.9520, L503.6150 ####[facility] [address] [place], [place], [id number] MILK (COW) <0.10 Normal Class 0 [facility] Comment on above: Performed By: #### L 504.2610, L803.2200, L500.4050, L3200.1100, L3100.3425, L100.9950, L3100.1850, L800.1280, L5500.0550, L101.9900, L503.0106, L3000.0375, L501.2300, L503.6550, L501.6710, L3400.8000, L501.5200, L3300.1200, L5500.0300, L100.0100, L3410.9998, L3300.0960, L3100.6900, L3200.0500, L3410.2400, L501.9520, L503.6150 ####[facility] [address] [facility] [place], [address] MUSSELS <0.10 Normal Class 0 [facility] Comment on above: Performed By: #### L 504.2610, L803.2200, L500.4050, L3200.1100, L3100.3425, L100.9950, L3100.1850, L800.1280, L5500.0550, L101.9900, L503.0106, L3000.0375, L501.2300, L503.6550, L501.6710, L3400.8000, L501.5200, L3300.1200, L5500.0300, L100.0100, L3410.9998, L3300.0960, L3100.6900, L3200.0500, L3410.2400, L501.9520, L503.6150 ####[facility] [address] [facility] [place], [address] PEANUT <0.10 Normal Class 0 [facility] Comment on above: Performed By: #### L 504.2610, L803.2200, L500.4050, L3200.1100, L3100.3425, L100.9950, L3100.1850, L800.1280, L5500.0550, L101.9900, L503.0106, L3000.0375, L501.2300, L503.6550, L501.6710, L3400.8000, L501.5200, L3300.1200, L5500.0300, L100.0100, L3410.9998, L3300.0960, L3100.6900, L3200.0500, L3410.2400, L501.9520, L503.6150 ####[facility] [address] [place], [place], [id number] PORK <0.10 Normal Class 0 [facility] Comment on above: Performed By: #### L 504.2610, L803.2200, L500.4050, L3200.1100, L3100.3425, L100.9950, L3100.1850, L800.1280, L5500.0550, L101.9900, L503.0106, L3000.0375, L501.2300, L503.6550, L501.6710, L3400.8000, L501.5200, L3300.1200, L5500.0300, L100.0100, L3410.9998, L3300.0960, L3100.6900, L3200.0500, L3410.2400, L501.9520, L503.6150 ####[facility] [address] [facility]. [place], [place], [id number] SALMON <0.10 Normal Class 0 [facility] Comment on above: Performed By: #### L 504.2610, L803.2200, L500.4050, L3200.1100, L3100.3425, L100.9950, L3100.1850, L800.1280, L5500.0550, L101.9900, L503.0106, L3000.0375, L501.2300, L503.6550, L501.6710, L3400.8000, L501.5200, L3300.1200, L5500.0300, L100.0100, L3410.9998, L3300.0960, L3100.6900, L3200.0500, L3410.2400, L501.9520, L503.6150 ####[facility] [address] [place], [place], [address] SHRIMP <0.10 Normal Class 0 [facility] Comment on above: Performed By: #### L 504.2610, L803.2200, L500.4050, L3200.1100, L3100.3425, L100.9950, L3100.1850, L800.1280, L5500.0550, L101.9900, L503.0106, L3000.0375, L501.2300, L503.6550, L501.6710, L3400.8000, L501.5200, L3300.1200, L5500.0300, L100.0100, L3410.9998, L3300.0960, L3100.6900, L3200.0500, L3410.2400, L501.9520, L503.6150 ####[facility] [id number] [place], [place], [id number] SOYBEAN <0.10 Normal Class 0 [facility] Comment on above: Performed By: #### L 504.2610, L803.2200, L500.4050, L3200.1100, L3100.3425, L100.9950, L3100.1850, L800.1280, L5500.0550, L101.9900, L503.0106, L3000.0375, L501.2300, L503.6550, L501.6710, L3400.8000, L501.5200, L3300.1200, L5500.0300, L100.0100, L3410.9998, L3300.0960, L3100.6900, L3200.0500, L3410.2400, L501.9520, L503.6150 ####[facility] [id number] [place], [place], [id number] TUNA <0.10 Normal Class 0 [facility] Comment on above: Performed By: #### L 504.2610, L803.2200, L500.4050, L3200.1100, L3100.3425, L100.9950, L3100.1850, L800.1280, L5500.0550, L101.9900, L503.0106, L3000.0375, L501.2300, L503.6550, L501.6710, L3400.8000, L501.5200, L3300.1200, L5500.0300, L100.0100, L3410.9998, L3300.0960, L3100.6900, L3200.0500, L3410.2400, L501.9520, L503.6150 ####[facility] [id number] [place], [address] WHEAT <0.10 Normal Class 0 [facility] Comment on above: Performed By: #### L 504.2610, L803.2200, L500.4050, L3200.1100, L3100.3425, L100.9950, L3100.1850, L800.1280, L5500.0550, L101.9900, L503.0106, L3000.0375, L501.2300, L503.6550, L501.6710, L3400.8000, L501.5200, L3300.1200, L5500.0300, L100.0100, L3410.9998, L3300.0960, L3100.6900, L3200.0500, L3410.2400, L501.9520, L503.6150 ####[facility] [id number], [address] Quantiferon TB-Gold+on 10-03 QFT MITOGEN REMA > 10.00 Normal . [facility] Comment on above: Performed By: #### L 504.2610, L803.2200, L500.4050, L3200.1100, L3100.3425, L100.9950, L3100.1850, L800.1280, L5500.0550, L101.9900, L503.0106, L3000.0375, L501.2300, L503.6550, L501.6710, L3400.8000, L501.5200, L3300.1200, L5500.0300, L100.0100, L3410.9998, L3300.0960, L3100.6900, L3200.0500, L3410.2400, L501.9520, L503.6150 #### [facility] Laboratory [address] [place], [address] QFT NIL VALUE 0.06 IU/mL Normal . [facility] Comment on above: Performed By: #### L 504.2610, L803.2200, L500.4050, L3200.1100, L3100.3425, L100.9950, L3100.1850, L800.1280, L5500.0550, L101.9900, L503.0106, L3000.0375, L501.2300, L503.6550, L501.6710, L3400.8000, L501.5200, L3300.1200, L5500.0300, L100.0100, L3410.9998, L3300.0960, L3100.6900, L3200.0500, L3410.2400, L501.9520, L503.6150 #### [facility] [address] [place], [address] QFT TB GOLD+ Comment Normal . [facility] Comment on above: Result Comment: Raul tiFERON-TB [...] for the test. Performed By: #### L 504.2610, L803.2200, L500.4050, L3200.1100, L3100.3425, L100.9950, L3100.1850, L800.1280, L5500.0550, L101.9900, L503.0106, L3000.0375, L501.2300, L503.6550, L501.6710, L3400.8000, L501.5200, L3300.1200, L5500.0300, L100.0100, L3410.9998, L3300.0960, L3100.6900, L3200.0500, L3410.2400, L501.9520, L503.6150 #### [facility] [address] [place], [place], [id number] QFT TB POS CRIT Negative Normal Negative [facility] Comment on above: Result Comment: No r [...] Chemiluminescence immunoassay methodology Performed By: #### L 504.2610, L803.2200, L500.4050, L3200.1100, L3100.3425, L100.9950, L3100.1850, L800.1280, L5500.0550, L101.9900, L503.0106, L3000.0375, L501.2300, L503.6550, L501.6710, L3400.8000, L501.5200, L3300.1200, L5500.0300, L100.0100, L3410.9998, L3300.0960, L3100.6900, L3200.0500, L3410.2400, L501.9520, L503.6150 #### [facility] [address] [place], [place], [id number] QFT TB1+ AG REMA 0.05 IU/mL Normal . [facility] Comment on above: Performed By: #### L 504.2610, L803.2200, L500.4050, L3200.1100, L3100.3425, L100.9950, L3100.1850, L800.1280, L5500.0550, L101.9900, L503.0106, L3000.0375, L501.2300, L503.6550, L501.6710, L3400.8000, L501.5200, L3300.1200, L5500.0300, L100.0100, L3410.9998, L3300.0960, L3100.6900, L3200.0500, L3410.2400, L501.9520, L503.6150 #### [facility] [address] [place], [place], [id number] QFT TB2+ AG REMA 0.06 IU/mL Normal . [facility] Comment on above: Performed By: #### L 504.2610, L803.2200, L500.4050, L3200.1100, L3100.3425, L100.9950, L3100.1850, L800.1280, L5500.0550, L101.9900, L503.0106, L3000.0375, L501.2300, L503.6550, L501.6710, L3400.8000, L501.5200, L3300.1200, L5500.0300, L100.0100, L3410.9998, L3300.0960, L3100.6900, L3200.0500, L3410.2400, L501.9520, L503.6150 #### [facility] [address] [place], [place], [id number] Vitamin D 1,25-Dihydroxyon 0 - VIT D 1,25 DIHY 72.1 pg/mL Normal 24.8-81.5 [facility] Comment on above: Performed By: #### L 504.2610, L803.2200, L500.4050, L3200.1100, L3100.3425, L100.9950, L3100.1850, L800.1280, L5500.0550, L101.9900, L503.0106, L3000.0375, L501.2300, L503.6550, L501.6710, L3400.8000, L501.5200, L3300.1200, L5500.0300, L100.0100, L3410.9998, L3300.0960, L3100.6900, L3200.0500, L3410.2400, L501.9520, L503.6150 ####[facility] [id number] [place], [address] [facility] Misc.on 10-02-2024 [facility] Misc. COMMENT Normal . [facility] Comment on above: Order Comment: [id number] 4USTEKINUMAB SERUM FRZ Result Comment: Test Ordered: [id number] Ustekinumab Drug + Antibody Ustekinumab 13 ug/mL [...] Study. Advances in AIBD. March 2017. 3. Tedtat R, et al. Clin Gastroenterol Hepatol 2017;15: 4787-3670. 4. Marianna SP, et al. Br J Dermatol;2015:173;855-857. 5. Kassy H, et al. PLOS ONE DOI;10:1371/journal.pone.0515526. 6. Myrtle L, et al. Br J Dermatol 2014;170:261-273. These tests were developed and their performance characteristics determined by [employer]. They have not been cleared or approved by the Food and Drug Administration. However, both drug and anti-drug antibody assays have been developed and validated in accordance with FDA Guidance for Industry documents: Bioanalytical Method Validation (2013) and Assay Development and Validation for Immunogenicity Testing of Therapeutic Protein Products (2016). Performed at: [employer] [address] [place] [id number] Assistant Toddler Teacher: Gary Kaba MD, Phone: [phone] Performed at: [address] [id number] Assistant Toddler Teacher: Tim Adkins PhD, Phone: [phone] Performed By: #### L 504.2610, L803.2200, L500.4050, L3200.1100, L3100.3425, L100.9950, L3100.1850, L800.1280, L5500.0550, L101.9900, L503.0106, L3000.0375, L501.2300, L503.6550, L501.6710, L3400.8000, L501.5200, L3300.1200, L5500.0300, L100.0100, L3410.9998, L3300.0960, L3100.6900, L3200.0500, L3410.2400, L501.9520, L503.6150 ####[facility] [id number] [place], [place], [id number] COMPLETE BLOOD COUNT WITH DI FFERENTIALon 09-28-2024 Basophil \P\ 0.02 10E3/???L Invalid Interpretation Code 0.02-0.06 [facility] Comment on above: Order Comment: Relea se to patient->Automatic Basophils/100 WBC (Bld) 0.4 % Invalid Interpretation Code 0.3-1.0 [facility] Comment on above: Order Comment: Relea se to patient->Automatic Eosinophil \P\ 0.11 10E3/???L Invalid Interpretation Code 0.04-0.31 [facility] Comment on above: Order Comment: Relea se to patient->Automatic Eosinophils/100 WBC (Bld) 2.1 % Invalid Interpretation Code 0.7-4.6 [facility] Comment on above: Order Comment: Relea se to patient->Automatic Erythrocyte distribution width (RBC) [Ratio] 12.0 % Invalid Interpretation Code 11.9-13.5 [facility] Comment on above: Order Comment: Relea se to patient->Automatic Hematocrit (Bld) [Volume fraction] 40.4 % Low 40.6-50.2 [facility] Comment on above: Order Comment: Relea se to patient->Automatic Hemoglobin (Bld) [Mass/Vol] 13.9 g/dL Invalid Interpretation Code 13.5-17.0 [facility] Comment on above: Order Comment: Relea se to patient->Automatic Immature granulocytes/100 WBC (Bld) 0.2 % Invalid Interpretation Code 0.2-0.5 [facility] Comment on above: Order Comment: Relea se to patient->Automatic Result Comment: Jillian ture Granulocyte Percent includes promyelocytes, myelocytes,and metamyelocytes. IG% > 1.0 indicates a left shift is present. With automated differentials, bands are included in the neutrophil count and not in the Immature Granulocyte Percent. Lymphocyte \P\ 1.77 10E3/???L Invalid Interpretation Code 1.39-2.72 [facility] Comment on above: Order Comment: Relea se to patient->Automatic Lymphocytes/100 WBC (Bld) 33.9 % Invalid Interpretation Code 20.0-42.9 [facility] Comment on above: Order Comment: Relea se to patient->Automatic MCH (RBC) [Entitic mass] 29.8 pg Invalid Interpretation Code 27.3-31.2 [facility] Comment on above: Order Comment: Relea se to patient->Automatic MCHC 34.4 % Invalid Interpretation Code 32.1-34.8 [facility] Comment on above: Order Comment: Relea se to patient->Automatic MCV (RBC) [Entitic vol] 86.7 fL Invalid Interpretation Code 82.8-92.0 [facility] Comment on above: Order Comment: Relea se to patient->Automatic Monocyte \P\ 0.46 10E3/???L Invalid Interpretation Code 0.38-0.83 [facility] Comment on above: Order Comment: Relea se to patient->Automatic Monocytes/100 WBC (Bld) 8.8 % Invalid Interpretation Code 6.5-11.5 [facility] Comment on above: Order Comment: Relea se to patient->Automatic Neutrophil \P\ 2.85 10E3/???L Invalid Interpretation Code 2.07-6.00 [facility] Comment on above: Order Comment: Relea se to patient->Automatic Neutrophils/100 WBC (Bld) 54.6 % Invalid Interpretation Code 43.5-69.0 [facility] Comment on above: Order Comment: Relea se to patient->Automatic Nucleated RBC/100 WBC (Bld) [Ratio] 0.0 % Invalid Interpretation Code 0.0-0.0 [facility] Comment on above: Order Comment: Relea se to patient->Automatic Platelet mean volume (Bld) [Entitic vol] 9.2 fL Low 9.6-11.8 [facility] Comment on above: Order Comment: Relea se to patient->Automatic Result Comment: MPV is platelet range and age dependent. Platelets 200 10E3/???L Invalid Interpretation Code 150-400 [facility] Comment on above: Order Comment: Relea se to patient->Automatic RBC 4.66 10E6/???L Invalid Interpretation Code 4.59-5.58 [facility] Comment on above: Order Comment: Relea se to patient->Automatic WBC 5.2 10E3/???L Invalid Interpretation Code 4.5-9.6 [facility] Comment on above: Order Comment: Relea se to patient->Automatic COMPREHENSIVE METABOLIC PANE Ravi 09-28-2024 Albumin [Mass/Vol] 4.0 g/dL Invalid Interpretation Code 3.5-5.0 [facility] Comment on above: Order Comment: Relea se to patient->Automatic ALP [Catalytic activity/Vol] 48 U/L Invalid Interpretation Code 40-129 [facility] Comment on above: Order Comment: Relea se to patient->Automatic ALT [Catalytic activity/Vol] 19 U/L Invalid Interpretation Code <=46 [facility] Comment on above: Order Comment: Relea se to patient->Automatic AST [Catalytic activity/Vol] 22 U/L Invalid Interpretation Code <=37 [facility] Comment on above: Order Comment: Relea se to patient->Automatic BILI,TOTAL 0.6 mg/dL Invalid Interpretation Code <=1.0 [facility] Comment on above: Order Comment: Relea se to patient->Automatic Calcium [Mass/Vol] 9.0 mg/dL Invalid Interpretation Code 7.6-11.0 [facility] Comment on above: Order Comment: Relea se to patient->Automatic Chloride [Moles/Vol] 108 mmol/L Invalid Interpretation Code 96-108 [facility] Comment on above: Order Comment: Relea se to patient->Automatic CO2 [Moles/Vol] 23.4 mmol/L Invalid Interpretation Code 22.0-29.0 [facility] Comment on above: Order Comment: Relea se to patient->Automatic Creatinine [Mass/Vol] 0.90 mg/dL Invalid Interpretation Code 0.70-1.20 [facility] Comment on above: Order Comment: Relea se to patient->Automatic GFR/1.73 sq M.predicted among non-blacks MDRD (S/P/Bld) [Vol rate/Area] mL/min/{1.73_m2} Invalid Interpretation Code >=60 [facility] Comment on above: Order Comment: Relea se to patient->Automatic Glucose [Mass/Vol] 88 mg/dL Invalid Interpretation Code 70-99 [facility] Comment on above: Order Comment: [...] [Moles/Vol] 4.1 mmol/L Invalid Interpretation Code 3.3-5.1 [facility] Comment on above: Order Comment: Relea se to patient->Automatic Protein [Mass/Vol] 6.3 g/dL Invalid Interpretation Code 5.9-8.4 [facility] Comment on above: Order Comment: Relea se to patient->Automatic Sodium [Moles/Vol] 139 mmol/L Invalid Interpretation Code 133-145 [facility] Comment on above: Order Comment: Andreaa se to patient->Automatic Urea nitrogen [Mass/Vol] 11 mg/dL Invalid Interpretation Code 4-19 [facility] Comment on above: Order Comment: Relea se to patient->Automatic Complete Blood CountOrdered By: Saida Brothers on 09-28-2024 Basophils (Bld) [#/Vol] 0.02 10*3/uL [facility] Basophils/100 WBC (Bld) 0.4 % 0.3 - 1.0 % [facility] Eosinophils (Bld) [#/Vol] 0.11 10*3/uL [facility] Eosinophils/100 WBC (Bld) 2.1 % 0.7 - 4.6 % [facility] Erythrocyte distribution width (RBC) [Ratio] 12 % 11.9 - 13.5 % [facility] Hematocrit (Bld) [Volume fraction] 40.4 % Low 40.6 - 50.2 % [facility] Hemoglobin (Bld) [Mass/Vol] 13.9 g/dL 13.5 - 17.0 g/dL [facility] Immature granulocytes/100 WBC (Bld) 0.2 % 0.2 - 0.5 % [facility] Comment on above: Immature Granulocyte Percent includes promyelocytes, myelocytes,and metamyelocytes. IG% > 1.0 indicates a left shift is present. With automated differentials, bands are included in the neutrophil count and not in the Immature Granulocyte Percent. Interpretation and review of laboratory results Abnormal [facility] Lymphocytes (Bld) [#/Vol] 1.77 10*3/uL [facility] Lymphocytes/100 WBC (Bld) 33.9 % 20.0 - 42.9 % [facility] MCH (RBC) [Entitic mass] 29.8 pg 27.3 - 31.2 pg [facility] MCHC (RBC) [Mass/Vol] 34.4 % 32.1 - 34.8 % [facility] MCV (RBC) [Entitic vol] 86.7 fL 82.8 - 92.0 fL [facility] Monocytes (Bld) [#/Vol] 0.46 10*3/uL [facility] Monocytes/100 WBC (Bld) 8.8 % 6.5 - 11.5 % [facility] Neutrophils (Bld) [#/Vol] 2.85 10*3/uL [facility] Neutrophils/100 WBC (Bld) 54.6 % 43.5 - 69.0 % [facility] Nucleated RBC/100 WBC (Bld) [Ratio] 0 % 0.0 - 0.0 % [facility] Platelet mean volume (Bld) [Entitic vol] 9.2 fL Low 9.6 - 11.8 fL [facility] Comment on above: MPV is platelet rang e and age dependent. Platelets (Bld) [#/Vol] 200 10*3/uL [facility] RBC (Bld) [#/Vol] 4.66 10*6/uL [facility] WBC (Bld) [#/Vol] 5.2 10*3/uL [facility] Comprehensive metabolic pane lOrdered By: Background Lab on 09-28-2024 Albumin BCG dye [Mass/Vol] 4 g/dL 3.5 - 5.0 g/dL [facility] ALP [Catalytic activity/Vol] 48 U/L 40 - 129 U/L [facility] ALT With P-5'-P [Catalytic activity/Vol] 19 U/L [facility] - 46 U/L [facility] AST With P-5'-P [Catalytic activity/Vol] 22 U/L [facility] - 37 U/L [facility] Bilirubin [Mass/Vol] 0.6 mg/dL [facility] - 1.0 mg/dL [facility] Calcium [Mass/Vol] 9 mg/dL 7.6 - 11. 0 mg/dL [facility] Chloride [Moles/Vol] 108 mmol/L 96 - 10 8 mmol/L [facility] Creatinine [Mass/Vol] 0.9 mg/dL 0.70 - 1.20 mg/dL [facility] eGFR - PINF [facility] Glucose [Mass/Vol] 88 mg/dL 70 - 99 mg/dL [facility] Comment on above: Criteria for Diagnos is of Diabetes: Fasting Specimen (no caloric intake for at least 8 hours): <100 mg/dL Normal 100-125 mg/dL Increased risk for Diabetes >125 mg/dL Diagnostic for Diabetes Random Glucose (any time of day without regard to last meal): > or = 200 mg/dL plus Classic Symptoms of Diabetes HCO3 (P) [Moles/Vol] 23.4 mmol/L 22.0 - 29.0 mmol/L [facility] Interpretation and review of laboratory results Normal [facility] Potassium (BldA) [Moles/Vol] 4.1 mmol/L 3.3 - 5.1 mmol/L [facility] Protein [Mass/Vol] 6.3 g/dL 5.9 - 8.4 g/dL [facility] Sodium [Moles/Vol] 139 mmol/L 133 - 145 mmol/L [facility] Urea nitrogen [Mass/Vol] 11 mg/dL 4 - 19 mg/dL [facility] ERYTHROCYTE SEDIMENTATION RA Courtney 09-28-2024 ESR (Bld) [Velocity] 2 mm/h Invalid Interpretation Code [facility] Comment on above: Order Comment: Relea se to patient->Automatic Result Comment: Newb orn: 0-2 mm/hr Jennings to puberty: 3-13 mm/hr Less than 50 years old: Male: <15 mm/hr Female: <20 mm/hr Greater than 50 years old: Male: <20 mm/hr Female: <30 mm/hr Erythrocyte Sedimentation Ra teOrdered By: Nerissa Bates on 09-28-2024 ESR Photometric method (Bld) [Velocity] 2 mm/hr [facility] Comment on above: : 0-2 mm/hr to puberty: 3-13 mm/hr Less than 50 years old: Male: <15 mm/hr Female: <20 mm/hr Greater than 50 years old: Male: <20 mm/hr Female: <30 mm/hr [facility] QUANTIFERON TB GOLDon 2024 Mitogen minus NIL 1.79 IU/mL Invalid Interpretation Code [facility] Comment on above: Order Comment: Relea se to patient->Automatic Quantiferon TB Gold Negative Invalid Interpretation Code Negative [facility] Comment on above: Order Comment: Relea se to patient->Automatic TB1 minus NIL 0.00 IU/mL Invalid Interpretation Code -0.50-0.34 [facility] Comment on above: Order Comment: Relea se to patient->Automatic TB2 minus NIL 0.01 IU/mL Invalid Interpretation Code -0.50-0.34 [facility] Comment on above: Order Comment: Relea se to patient->Automatic URINALYSIS, COMPLETEon 09-28 Bilirubin Ql (U) Negative Invalid Interpretation Code Negative [facility] Comment on above: Order Comment: Relea se to patient->Automatic Character Clear Invalid Interpretation Code [facility] Comment on above: Order Comment: Relea se to patient->Automatic Color (U) Light Yellow Invalid Interpretation Code [facility] Comment on above: Order Comment: Relea se to patient->Automatic Epithelial cells.squamous LM.HPF (Urine sed) [#/Area] 0 /[HPF] Invalid Interpretation Code <=2 [facility] Comment on above: Order Comment: Relea se to patient->Automatic Glucose Ql (U) Normal Invalid Interpretation Code Normal [facility] Comment on above: Order Comment: Relea se to patient->Automatic Ketones Ql (U) Negative Invalid Interpretation Code Negative [facility] Comment on above: Order Comment: Relea se to patient->Automatic Leukocyte esterase Test strip Ql (U) Negative Invalid Interpretation Code Negative [facility] Comment on above: Order Comment: Relea se to patient->Automatic Mucous Small Invalid Interpretation Code Neg-Small [facility] Comment on above: Order Comment: Relea se to patient->Automatic Nitrite Ql (U) Negative Invalid Interpretation Code Negative [facility] Comment on above: Order Comment: Relea se to patient->Automatic pH (U) 5.5 [pH] Invalid Interpretation Code 5.0-8.0 [facility] Comment on above: Order Comment: Relea se to patient->Automatic Protein Ql (U) Negative Invalid Interpretation Code Neg.-Trace [facility] Comment on above: Order Comment: Relea se to patient->Automatic RBC (U) [#/Vol] /uL Invalid Interpretation Code <=2 [facility] Comment on above: Order Comment: Relea se to patient->Automatic Renal Epithelial Cells 0 /HPF Invalid Interpretation Code <=2 [facility] Comment on above: Order Comment: Relea se to patient->Automatic Specific gravity (U) [Rel density] 1.012 Invalid Interpretation Code Reference Range: 1.005-1.030 [facility] Comment on above: Order Comment: Relea se to patient->Automatic Transitional Epithelial Cells 0 /HPF Invalid Interpretation Code <=2 [facility] Comment on above: Order Comment: Relea se to patient->Automatic Urobilinogen Normal Invalid Interpretation Code Normal [facility] Comment on above: Order Comment: Relea se to patient->Automatic Volume 12 mL Invalid Interpretation Code [facility] Comment on above: Order Comment: Relea se to patient->Automatic WBC (U) [#/Vol] /uL Invalid Interpretation Code <=2 [facility] Comment on above: Order Comment: Relea se to patient->Automatic Urinalysis, completeOrdered By: Susan Hammer on 09-28-2024 Bilirubin Ql (U) Negative Negative [facility] Character Clear [facility] Color (U) Light Yellow [facility] Epithelial cells.renal Computer assisted (U) [#/Area] [address] [facility] Epithelial cells.squamous Auto (Urine sed) [#/Area] 0 NINF [facility] Glucose Auto test strip Ql (U) Normal Normal [facility] Hemoglobin Auto test strip Ql (U) Negative Negative [facility] Ketones (U) [Mass/Vol] Negative Negative [facility] Leukocyte esterase Auto test strip Ql (U) Negative Negative Yrn/uL [facility] Mucus Auto Ql (U) Small Neg-Small [facility] Nitrite Ql (U) Negative Negative [facility] pH (U) 5.5 [pH] 5.0 - 8.0 [facility] Protein (U) [Mass/Vol] Negative Neg.-Trace [facility] RBC Auto (Urine sed) [#/Area] [facility] Specific gravity Refractometry automated (U) [Rel density] 1.012 Reference Range: 1.005-1.030 [facility] Specimen volume (U) 12 mL [facility] Transitional cells Computer assisted (U) [#/Area] 0 [facility] Urobilinogen (U) [Mass/Vol] Normal Normal mg/dL [facility] WBC Auto (Urine sed) [#/Area] [facility] VITAMIN D 1,25 DIHYDROXYon 0 09-28-2024 Vitamin D, 1,25-Dihydroxy 42 pg/mL Invalid Interpretation Code 18-64 [facility] Comment on above: Order Comment: Relea se to patient->Automatic Result Comment: ADDITIONAL INFORMATION This test was developed and its performance characteristics determined by [facility] in a manner consistent with CLIA requirements. This test has not been cleared or approved by the U.S. Food and Drug Administration. Test Performed by: [facility] [place] [address] Assistant Toddler Teacher: Alex Guadarrama Ph.D.; CLIA# [id number] 1,25-dihydroxyvitamin D3 [Ma ss/Vol]Ordered By: Hunter Ceja on 09-25-2024 Vitamin D 1,25-Dihydroxy 72.1 pg/mL 24.8-81.5 [facility] Absolute neutrophil countOrd ered By: Hunter Ceja on 09-25-2024 Neutrophils (Bld) [#/Vol] 2.9 10*3/uL 2.0-7.7 [facility] Actin IgG QnOrdered By: Anastacio Mendoza on 09-25-2024 Anti-Smooth Muscle Antibody 6 Units 0-19 [facility] Comment on above: Negative 0 - 19 Weak positive 20 - 30 Moderate to strong positive >30 Actin Antibodies are found in 52-85% of patients with autoimmune hepatitis or chronic active hepatitis and in 22% of patients with primary biliary cirrhosis. Addendum DocumentOrdered By: Hunter Ceja on 09-25-2024 Serum Immunofixation Comments Comment . [facility] Comment on above: Protein electrophore sis scan will follow via computer,mail, or shoe planner delivery. Albumin Elph [Mass/Vol]Order ed By: Hunter Ceja on 09-25-2024 Albumin [Mass/Vol] 4.3 g/dL 2.9-4.4 [facility] Alpha 1 globulin Elph [Mass/ Vol]Ordered By: Hunter Ceja on 09-25-2024 Xbzlh-5-Tsawmsveo (DENISE) 0.2 g/dL 0.0-0.4 [facility] Ctkmt-1-Mcuieiqes (DENISE) 0.7 g/dL 0.4-1.0 [facility] Alternaria alternata IgE ser umOrdered By: Hunter Ceja on 09-25-2024 Alternaria alternata IgE Allergen <0.10 kU/L Class 0 [facility] Anion gap in Serum or Plasma Ordered By: Hunter Ceja on 09-25-2024 Anion gap [Moles/Vol] 13 mmol/L 5-15 [facility] Atypical perinuclear antineu trophil cytoplasmic antibodies measurementOrdered By: Hunter Ceja on 09-25-2024 Atypical p-ANCA 1:40 titer High Neg:<1:20 [facility] Comment on above: The atypical pANCA p attern has been observed in asignificant percentage of patients with ulcerative colitis,primary sclerosing cholangitis and autoimmune hepatitis. BUN/creatinine ratioOrdered By: Hunter Ceja on 09-25-2024 Urea nitrogen/Creatinine [Mass ratio] 12.7 mg/mg 10-20 [facility] Basophil percentageOrdered B y: Hunter Ceja on 09-25-2024 Basophils/100 WBC (Bld) 0.4 % 0-1 [facility] Beef IgE Qn (S)Ordered By: Be Ceja on 09-25-2024 Beef Allergen (RAST) <0.10 kU/L Class 0 [facility] Bermuda grass IgE Qn (S)Orde red By: Hunter Friend on 09-25-2024 Bermuda Grass Allergen <0.10 kU/L Class 0 [facility] Beta globulin Elph [Mass/Vol ]Ordered By: Hunter Friend on 09-25-2024 Beta-Globulins (DENISE) 0.9 g/dL 0.7-1.3 [facility] Bilirubin, totalOrdered By: Hunter Friend on 09-25-2024 Bilirubin [Mass/Vol] 1.04 mg/dL 0.00-1.30 [facility] CBC W/Diff, Automatedon 08-28 Absolute Lymph 1.52 X10 3/uL Normal 0.83-4.51 [facility] Comment on above: Performed By: #### L 504.2610, L803.2200, L500.4050, L3200.1100, L3100.3425, L100.9950, L3100.1850, L800.1280, L5500.0550, L101.9900, L503.0106, L3000.0375, L501.2300, L503.6550, L501.6710, L3400.8000, L501.5200, L3300.1200, L5500.0300, L100.0100, L3410.9998, L3300.0960, L3100.6900, L3200.0500, L3410.2400, L501.9520, L503.6150 #### [facility] [address] [place], [place], [id number] Absolute Neut 2.9 X10 3/uL Normal 2.0-7.7 [facility] Comment on above: Performed By: #### L 504.2610, L803.2200, L500.4050, L3200.1100, L3100.3425, L100.9950, L3100.1850, L800.1280, L5500.0550, L101.9900, L503.0106, L3000.0375, L501.2300, L503.6550, L501.6710, L3400.8000, L501.5200, L3300.1200, L5500.0300, L100.0100, L3410.9998, L3300.0960, L3100.6900, L3200.0500, L3410.2400, L501.9520, L503.6150 #### [facility] [address] [place], [address] Basophils/100 WBC (Bld) 0.4 % Normal 0-1 [facility] Comment on above: Performed By: #### L 504.2610, L803.2200, L500.4050, L3200.1100, L3100.3425, L100.9950, L3100.1850, L800.1280, L5500.0550, L101.9900, L503.0106, L3000.0375, L501.2300, L503.6550, L501.6710, L3400.8000, L501.5200, L3300.1200, L5500.0300, L100.0100, L3410.9998, L3300.0960, L3100.6900, L3200.0500, L3410.2400, L501.9520, L503.6150 #### [facility] [address] [place], [address] Eosinophils/100 WBC (Bld) 0.8 % Normal 0-5 [facility] Comment on above: Performed By: #### L 504.2610, L803.2200, L500.4050, L3200.1100, L3100.3425, L100.9950, L3100.1850, L800.1280, L5500.0550, L101.9900, L503.0106, L3000.0375, L501.2300, L503.6550, L501.6710, L3400.8000, L501.5200, L3300.1200, L5500.0300, L100.0100, L3410.9998, L3300.0960, L3100.6900, L3200.0500, L3410.2400, L501.9520, L503.6150 #### [facility] [address] [facility] [place], [address] Erythrocyte distribution width (RBC) [Ratio] 12.2 % Normal 11.6-14.6 [facility] Comment on above: Performed By: #### L 504.2610, L803.2200, L500.4050, L3200.1100, L3100.3425, L100.9950, L3100.1850, L800.1280, L5500.0550, L101.9900, L503.0106, L3000.0375, L501.2300, L503.6550, L501.6710, L3400.8000, L501.5200, L3300.1200, L5500.0300, L100.0100, L3410.9998, L3300.0960, L3100.6900, L3200.0500, L3410.2400, L501.9520, L503.6150 #### [facility] [address] [place], [address] Hematocrit (Bld) [Volume fraction] 45.5 % Normal 40-54 [facility] Comment on above: Performed By: #### L 504.2610, L803.2200, L500.4050, L3200.1100, L3100.3425, L100.9950, L3100.1850, L800.1280, L5500.0550, L101.9900, L503.0106, L3000.0375, L501.2300, L503.6550, L501.6710, L3400.8000, L501.5200, L3300.1200, L5500.0300, L100.0100, L3410.9998, L3300.0960, L3100.6900, L3200.0500, L3410.2400, L501.9520, L503.6150 #### [facility] [address] [place], [address] Hemoglobin (Bld) [Mass/Vol] 16.2 g/dL Normal 13.0-16.5 [facility] Comment on above: Performed By: #### L 504.2610, L803.2200, L500.4050, L3200.1100, L3100.3425, L100.9950, L3100.1850, L800.1280, L5500.0550, L101.9900, L503.0106, L3000.0375, L501.2300, L503.6550, L501.6710, L3400.8000, L501.5200, L3300.1200, L5500.0300, L100.0100, L3410.9998, L3300.0960, L3100.6900, L3200.0500, L3410.2400, L501.9520, L503.6150 #### [facility] [address] [place], [address] IG% 0.200 Normal 0.0-0.9 [facility] Comment on above: Result Comment: IG% - Immature Granulocytes (promyelocytes, myelocytes and metamyelocytes) > 1% indicates that a LEFT SHIFT is Present. Performed By: #### L 504.2610, L803.2200, L500.4050, L3200.1100, L3100.3425, L100.9950, L3100.1850, L800.1280, L5500.0550, L101.9900, L503.0106, L3000.0375, L501.2300, L503.6550, L501.6710, L3400.8000, L501.5200, L3300.1200, L5500.0300, L100.0100, L3410.9998, L3300.0960, L3100.6900, L3200.0500, L3410.2400, L501.9520, L503.6150 #### [facility] [address] [place], [address] Lymphocytes/100 WBC (Bld) 31.0 % Normal 19-41 [facility] Comment on above: Performed By: #### L 504.2610, L803.2200, L500.4050, L3200.1100, L3100.3425, L100.9950, L3100.1850, L800.1280, L5500.0550, L101.9900, L503.0106, L3000.0375, L501.2300, L503.6550, L501.6710, L3400.8000, L501.5200, L3300.1200, L5500.0300, L100.0100, L3410.9998, L3300.0960, L3100.6900, L3200.0500, L3410.2400, L501.9520, L503.6150 #### [facility] [address] [place], [address] (037) MCH (RBC) [Entitic mass] 30.3 pg Normal 27.0-32.0 [facility] Comment on above: Performed By: #### L 504.2610, L803.2200, L500.4050, L3200.1100, L3100.3425, L100.9950, L3100.1850, L800.1280, L5500.0550, L101.9900, L503.0106, L3000.0375, L501.2300, L503.6550, L501.6710, L3400.8000, L501.5200, L3300.1200, L5500.0300, L100.0100, L3410.9998, L3300.0960, L3100.6900, L3200.0500, L3410.2400, L501.9520, L503.6150 #### [facility] [address] [place], [address] MCHC (RBC) [Mass/Vol] 35.6 g/dL Normal 32-36 [facility] Comment on above: Performed By: #### L 504.2610, L803.2200, L500.4050, L3200.1100, L3100.3425, L100.9950, L3100.1850, L800.1280, L5500.0550, L101.9900, L503.0106, L3000.0375, L501.2300, L503.6550, L501.6710, L3400.8000, L501.5200, L3300.1200, L5500.0300, L100.0100, L3410.9998, L3300.0960, L3100.6900, L3200.0500, L3410.2400, L501.9520, L503.6150 #### [facility] [address] [place], [place], [id number] (344) MCV (RBC) [Entitic vol] 85.2 fL Normal 80-94 [facility] Comment on above: Performed By: #### L 504.2610, L803.2200, L500.4050, L3200.1100, L3100.3425, L100.9950, L3100.1850, L800.1280, L5500.0550, L101.9900, L503.0106, L3000.0375, L501.2300, L503.6550, L501.6710, L3400.8000, L501.5200, L3300.1200, L5500.0300, L100.0100, L3410.9998, L3300.0960, L3100.6900, L3200.0500, L3410.2400, L501.9520, L503.6150 #### [facility] [address] [place], [address] Monocytes/100 WBC (Bld) 8.4 % Normal 0-10 [facility] Comment on above: Performed By: #### L 504.2610, L803.2200, L500.4050, L3200.1100, L3100.3425, L100.9950, L3100.1850, L800.1280, L5500.0550, L101.9900, L503.0106, L3000.0375, L501.2300, L503.6550, L501.6710, L3400.8000, L501.5200, L3300.1200, L5500.0300, L100.0100, L3410.9998, L3300.0960, L3100.6900, L3200.0500, L3410.2400, L501.9520, L503.6150 #### [facility] [address] [place], [address] Neutrophils/100 WBC (Bld) 59.2 % Normal 47-70 [facility] Comment on above: Performed By: #### L 504.2610, L803.2200, L500.4050, L3200.1100, L3100.3425, L100.9950, L3100.1850, L800.1280, L5500.0550, L101.9900, L503.0106, L3000.0375, L501.2300, L503.6550, L501.6710, L3400.8000, L501.5200, L3300.1200, L5500.0300, L100.0100, L3410.9998, L3300.0960, L3100.6900, L3200.0500, L3410.2400, L501.9520, L503.6150 #### [facility] [address] [place], [place], [id number] Nucleated RBC (Bld) [#/Vol] 0 10*3/uL Normal 0-5 [facility] Comment on above: Performed By: #### L 504.2610, L803.2200, L500.4050, L3200.1100, L3100.3425, L100.9950, L3100.1850, L800.1280, L5500.0550, L101.9900, L503.0106, L3000.0375, L501.2300, L503.6550, L501.6710, L3400.8000, L501.5200, L3300.1200, L5500.0300, L100.0100, L3410.9998, L3300.0960, L3100.6900, L3200.0500, L3410.2400, L501.9520, L503.6150 #### [facility] [address] [facility] [place], [place], [id number] Platelet mean volume (Bld) [Entitic vol] 8.6 fL Normal 6.2-12.0 [facility] Comment on above: Performed By: #### L 504.2610, L803.2200, L500.4050, L3200.1100, L3100.3425, L100.9950, L3100.1850, L800.1280, L5500.0550, L101.9900, L503.0106, L3000.0375, L501.2300, L503.6550, L501.6710, L3400.8000, L501.5200, L3300.1200, L5500.0300, L100.0100, L3410.9998, L3300.0960, L3100.6900, L3200.0500, L3410.2400, L501.9520, L503.6150 #### [facility] [address] [facility] [place], [place], [id number] Platelets (Bld) [#/Vol] 184 10*3/uL Normal 150-450 [facility] Comment on above: Performed By: #### L 504.2610, L803.2200, L500.4050, L3200.1100, L3100.3425, L100.9950, L3100.1850, L800.1280, L5500.0550, L101.9900, L503.0106, L3000.0375, L501.2300, L503.6550, L501.6710, L3400.8000, L501.5200, L3300.1200, L5500.0300, L100.0100, L3410.9998, L3300.0960, L3100.6900, L3200.0500, L3410.2400, L501.9520, L503.6150 #### [facility] [address] [place], [address] RBC (Bld) [#/Vol] 5.34 10*6/uL Normal 4.6-6.2 [facility] Comment on above: Performed By: #### L 504.2610, L803.2200, L500.4050, L3200.1100, L3100.3425, L100.9950, L3100.1850, L800.1280, L5500.0550, L101.9900, L503.0106, L3000.0375, L501.2300, L503.6550, L501.6710, L3400.8000, L501.5200, L3300.1200, L5500.0300, L100.0100, L3410.9998, L3300.0960, L3100.6900, L3200.0500, L3410.2400, L501.9520, L503.6150 #### [facility] [address] [place] [place], [address] RDW SD 37.8 fl Normal 35.1-43.9 [facility] Comment on above: Performed By: #### L 504.2610, L803.2200, L500.4050, L3200.1100, L3100.3425, L100.9950, L3100.1850, L800.1280, L5500.0550, L101.9900, L503.0106, L3000.0375, L501.2300, L503.6550, L501.6710, L3400.8000, L501.5200, L3300.1200, L5500.0300, L100.0100, L3410.9998, L3300.0960, L3100.6900, L3200.0500, L3410.2400, L501.9520, L503.6150 #### [facility] [address] [place] [place], [address] (236) WBC (Bld) [#/Vol] 4.9 10*3/uL Normal 4.4-11.0 [facility] Comment on above: Performed By: #### L 504.2610, L803.2200, L500.4050, L3200.1100, L3100.3425, L100.9950, L3100.1850, L800.1280, L5500.0550, L101.9900, L503.0106, L3000.0375, L501.2300, L503.6550, L501.6710, L3400.8000, L501.5200, L3300.1200, L5500.0300, L100.0100, L3410.9998, L3300.0960, L3100.6900, L3200.0500, L3410.2400, L501.9520, L503.6150 #### [facility] [address] [place], [address] CRPon 09-25-2024 C-REACTIVE PROT 3.56 mg/L High 0.0-3.0 [facility] Comment on above: Performed By: #### L 504.2610, L803.2200, L500.4050, L3200.1100, L3100.3425, L100.9950, L3100.1850, L800.1280, L5500.0550, L101.9900, L503.0106, L3000.0375, L501.2300, L503.6550, L501.6710, L3400.8000, L501.5200, L3300.1200, L5500.0300, L100.0100, L3410.9998, L3300.0960, L3100.6900, L3200.0500, L3410.2400, L501.9520, L503.6150 ####[facility] [address] [place], [address] CRP [Mass/Vol]Ordered By: Ra case Ceja on 09-25-2024 C-Reactive Protein Extended Range 3.56 mg/L High 0.0-3.0 [facility] Carbon dioxide, total [Moles /volume] in Central venous bloodOrdered By: Hunter Ceja on 09-25-2024 CO2 [Moles/Vol] 23.1 mmol/L 21.0-32.0 [facility] Cat dander IgE Qn (S)Ordered By: Hunter Ceja on 09-25-2024 Cat Dander IgE Allergen <0.10 kU/L Class 0 [facility] Chloride assayOrdered By: Ra case Ceja on 09-25-2024 Chloride [Moles/Vol] 101 mmol/L 98-108 [facility] Chocolate IgE serumOrdered B y: Hunterpanchito Ceja on 09-25-2024 Chocolate Allergen (RAST) <0.10 kU/L Class 0 [facility] Codfish IgE Qn (S)Ordered By : Hunter Ceja on 09-25-2024 Codfish Allergen (RAST) <0.10 kU/L Class 0 [facility] Comprehensive Metabolic Prof ilon 09-25-2024 Albumin [Mass/Vol] 4.9 g/dL Normal 3.5-5.0 [facility] Comment on above: Order Comment: [id number] Performed By: #### L 504.2610, L803.2200, L500.4050, L3200.1100, L3100.3425, L100.9950, L3100.1850, L800.1280, L5500.0550, L101.9900, L503.0106, L3000.0375, L501.2300, L503.6550, L501.6710, L3400.8000, L501.5200, L3300.1200, L5500.0300, L100.0100, L3410.9998, L3300.0960, L3100.6900, L3200.0500, L3410.2400, L501.9520, L503.6150 #### [facility] [address] [place], [place], [id number] Albumin/Globulin [Mass ratio] 1.6 {ratio} Normal 0.9-2.4 [facility] Comment on above: Order Comment: [id number] 4 Performed By: #### L 504.2610, L803.2200, L500.4050, L3200.1100, L3100.3425, L100.9950, L3100.1850, L800.1280, L5500.0550, L101.9900, L503.0106, L3000.0375, L501.2300, L503.6550, L501.6710, L3400.8000, L501.5200, L3300.1200, L5500.0300, L100.0100, L3410.9998, L3300.0960, L3100.6900, L3200.0500, L3410.2400, L501.9520, L503.6150 #### [facility] [address] [facility] [place], [place], [id number] ALK PHOS 63 U/L Normal 40-129 [facility] Comment on above: Order Comment: [id number] 4 Performed By: #### L 504.2610, L803.2200, L500.4050, L3200.1100, L3100.3425, L100.9950, L3100.1850, L800.1280, L5500.0550, L101.9900, L503.0106, L3000.0375, L501.2300, L503.6550, L501.6710, L3400.8000, L501.5200, L3300.1200, L5500.0300, L100.0100, L3410.9998, L3300.0960, L3100.6900, L3200.0500, L3410.2400, L501.9520, L503.6150 #### [facility] [address] [place], [place], [id number] ALT [Catalytic activity/Vol] 35 U/L Normal <=46 [facility] Comment on above: Order Comment: [id number] 4 Performed By: #### L 504.2610, L803.2200, L500.4050, L3200.1100, L3100.3425, L100.9950, L3100.1850, L800.1280, L5500.0550, L101.9900, L503.0106, L3000.0375, L501.2300, L503.6550, L501.6710, L3400.8000, L501.5200, L3300.1200, L5500.0300, L100.0100, L3410.9998, L3300.0960, L3100.6900, L3200.0500, L3410.2400, L501.9520, L503.6150 #### [facility] [address] [place], [place], [id number] AST [Catalytic activity/Vol] 38 U/L Normal <=37 [facility] Comment on above: Order Comment: [id number] 4 Performed By: #### L 504.2610, L803.2200, L500.4050, L3200.1100, L3100.3425, L100.9950, L3100.1850, L800.1280, L5500.0550, L101.9900, L503.0106, L3000.0375, L501.2300, L503.6550, L501.6710, L3400.8000, L501.5200, L3300.1200, L5500.0300, L100.0100, L3410.9998, L3300.0960, L3100.6900, L3200.0500, L3410.2400, L501.9520, L503.6150 #### [facility] [address] [facility] [place], [place], [id number] Bilirubin [Mass/Vol] 1.04 mg/dL Normal 0.00-1.30 [facility] Comment on above: Order Comment: [id number] 4 Performed By: #### L 504.2610, L803.2200, L500.4050, L3200.1100, L3100.3425, L100.9950, L3100.1850, L800.1280, L5500.0550, L101.9900, L503.0106, L3000.0375, L501.2300, L503.6550, L501.6710, L3400.8000, L501.5200, L3300.1200, L5500.0300, L100.0100, L3410.9998, L3300.0960, L3100.6900, L3200.0500, L3410.2400, L501.9520, L503.6150 #### [facility] [address] [facility] [place], [place], [id number] (229) BUN/CRE 12.7 RATIO Normal 10-20 [facility] Comment on above: Order Comment: [id number] 4 Performed By: #### L 504.2610, L803.2200, L500.4050, L3200.1100, L3100.3425, L100.9950, L3100.1850, L800.1280, L5500.0550, L101.9900, L503.0106, L3000.0375, L501.2300, L503.6550, L501.6710, L3400.8000, L501.5200, L3300.1200, L5500.0300, L100.0100, L3410.9998, L3300.0960, L3100.6900, L3200.0500, L3410.2400, L501.9520, L503.6150 #### [facility] [address] [facility] [place], [place], [id number] Calcium [Mass/Vol] 9.7 mg/dL Normal 7.6-11.0 [facility] Comment on above: Order Comment: [id number] 4 Performed By: #### L 504.2610, L803.2200, L500.4050, L3200.1100, L3100.3425, L100.9950, L3100.1850, L800.1280, L5500.0550, L101.9900, L503.0106, L3000.0375, L501.2300, L503.6550, L501.6710, L3400.8000, L501.5200, L3300.1200, L5500.0300, L100.0100, L3410.9998, L3300.0960, L3100.6900, L3200.0500, L3410.2400, L501.9520, L503.6150 #### [facility] [address] [facility] [place], [place], [id number] Chloride [Moles/Vol] 101 mmol/L Normal 98-108 [facility] Comment on above: Order Comment: [id number] 4 Performed By: #### L 504.2610, L803.2200, L500.4050, L3200.1100, L3100.3425, L100.9950, L3100.1850, L800.1280, L5500.0550, L101.9900, L503.0106, L3000.0375, L501.2300, L503.6550, L501.6710, L3400.8000, L501.5200, L3300.1200, L5500.0300, L100.0100, L3410.9998, L3300.0960, L3100.6900, L3200.0500, L3410.2400, L501.9520, L503.6150 #### [facility] [address] [place], [place], [id number] CO2 [Moles/Vol] 23.1 mmol/L Normal 21.0-32.0 [facility] Comment on above: Order Comment: [id number] 4 Performed By: #### L 504.2610, L803.2200, L500.4050, L3200.1100, L3100.3425, L100.9950, L3100.1850, L800.1280, L5500.0550, L101.9900, L503.0106, L3000.0375, L501.2300, L503.6550, L501.6710, L3400.8000, L501.5200, L3300.1200, L5500.0300, L100.0100, L3410.9998, L3300.0960, L3100.6900, L3200.0500, L3410.2400, L501.9520, L503.6150 #### [facility] [address], [place], [id number] Creatinine [Mass/Vol] 0.97 mg/dL Normal 0.70-1.20 [facility] Comment on above: Order Comment: [id number] 4 Performed By: #### L 504.2610, L803.2200, L500.4050, L3200.1100, L3100.3425, L100.9950, L3100.1850, L800.1280, L5500.0550, L101.9900, L503.0106, L3000.0375, L501.2300, L503.6550, L501.6710, L3400.8000, L501.5200, L3300.1200, L5500.0300, L100.0100, L3410.9998, L3300.0960, L3100.6900, L3200.0500, L3410.2400, L501.9520, L503.6150 #### [facility] [address] [place], [address] GAP 13 Normal 5-15 [facility] Comment on above: Order Comment: [id number] 4 Performed By: #### L 504.2610, L803.2200, L500.4050, L3200.1100, L3100.3425, L100.9950, L3100.1850, L800.1280, L5500.0550, L101.9900, L503.0106, L3000.0375, L501.2300, L503.6550, L501.6710, L3400.8000, L501.5200, L3300.1200, L5500.0300, L100.0100, L3410.9998, L3300.0960, L3100.6900, L3200.0500, L3410.2400, L501.9520, L503.6150 #### [facility] [address] [place], [address] GFR/1.73 sq M.predicted among non-blacks MDRD (S/P/Bld) [Vol rate/Area] 112 mL/min/{1.73_m2} Normal >60 [facility] Comment on above: Order Comment: [id number] 4 Result Comment: mL/m in/1.73m2 CKD-EPI Creatinine Equation (2020) Performed By: #### L 504.2610, L803.2200, L500.4050, L3200.1100, L3100.3425, L100.9950, L3100.1850, L800.1280, L5500.0550, L101.9900, L503.0106, L3000.0375, L501.2300, L503.6550, L501.6710, L3400.8000, L501.5200, L3300.1200, L5500.0300, L100.0100, L3410.9998, L3300.0960, L3100.6900, L3200.0500, L3410.2400, L501.9520, L503.6150 #### [facility] [address]. [place], [place], [id number] Globulin (S) [Mass/Vol] 3.1 g/dL Normal 2.2-4.2 [facility] Comment on above: Order Comment: [id number] 4 Performed By: #### L 504.2610, L803.2200, L500.4050, L3200.1100, L3100.3425, L100.9950, L3100.1850, L800.1280, L5500.0550, L101.9900, L503.0106, L3000.0375, L501.2300, L503.6550, L501.6710, L3400.8000, L501.5200, L3300.1200, L5500.0300, L100.0100, L3410.9998, L3300.0960, L3100.6900, L3200.0500, L3410.2400, L501.9520, L503.6150 #### [facility] [address] [place], [address] Glucose [Mass/Vol] 86 mg/dL Normal 70-99 [facility] Comment on above: Order Comment: [id number] 4 Performed By: #### L 504.2610, L803.2200, L500.4050, L3200.1100, L3100.3425, L100.9950, L3100.1850, L800.1280, L5500.0550, L101.9900, L503.0106, L3000.0375, L501.2300, L503.6550, L501.6710, L3400.8000, L501.5200, L3300.1200, L5500.0300, L100.0100, L3410.9998, L3300.0960, L3100.6900, L3200.0500, L3410.2400, L501.9520, L503.6150 #### [facility] [address] [place], [address] Potassium [Moles/Vol] 3.9 mmol/L Normal 3.3-5.1 [facility] Comment on above: Order Comment: [id number] Performed By: #### L 504.2610, L803.2200, L500.4050, L3200.1100, L3100.3425, L100.9950, L3100.1850, L800.1280, L5500.0550, L101.9900, L503.0106, L3000.0375, L501.2300, L503.6550, L501.6710, L3400.8000, L501.5200, L3300.1200, L5500.0300, L100.0100, L3410.9998, L3300.0960, L3100.6900, L3200.0500, L3410.2400, L501.9520, L503.6150 #### [facility] Laboratory [address] [place], [place], [id number] Sodium [Moles/Vol] 138 mmol/L Normal 133-145 [facility] Comment on above: Order Comment: [id number] Performed By: #### L 504.2610, L803.2200, L500.4050, L3200.1100, L3100.3425, L100.9950, L3100.1850, L800.1280, L5500.0550, L101.9900, L503.0106, L3000.0375, L501.2300, L503.6550, L501.6710, L3400.8000, L501.5200, L3300.1200, L5500.0300, L100.0100, L3410.9998, L3300.0960, L3100.6900, L3200.0500, L3410.2400, L501.9520, L503.6150 #### [facility] Laboratory [address] [place], [address] T PROT 8.0 g/dL Normal 5.9-8.4 [facility] Comment on above: Order Comment: [id number] Performed By: #### L 504.2610, L803.2200, L500.4050, L3200.1100, L3100.3425, L100.9950, L3100.1850, L800.1280, L5500.0550, L101.9900, L503.0106, L3000.0375, L501.2300, L503.6550, L501.6710, L3400.8000, L501.5200, L3300.1200, L5500.0300, L100.0100, L3410.9998, L3300.0960, L3100.6900, L3200.0500, L3410.2400, L501.9520, L503.6150 #### [facility] Laboratory [address] [place], [place], [id number] Urea nitrogen [Mass/Vol] 12 mg/dL Normal 4-19 [facility] Comment on above: Order Comment: [id number] Performed By: #### L 504.2610, L803.2200, L500.4050, L3200.1100, L3100.3425, L100.9950, L3100.1850, L800.1280, L5500.0550, L101.9900, L503.0106, L3000.0375, L501.2300, L503.6550, L501.6710, L3400.8000, L501.5200, L3300.1200, L5500.0300, L100.0100, L3410.9998, L3300.0960, L3100.6900, L3200.0500, L3410.2400, L501.9520, L503.6150 #### [facility] Laboratory [address] [place], [address] [place] IgE Qn (S)Ordered By: Be Ceja on 09-25-2024 [place] Allergen (RAST) <0.10 kU/L Class 0 [facility] Cow milk IgE Qn (S)Ordered B y: Hunter Ceja on 09-25-2024 Cow's Milk Allergen <0.10 kU/L Class 0 [facility] Dog epithelium IgE Qn (S)Ord ered By: Hunter Ceja on 09-25-2024 Dog Epithelia Allergen <0.10 kU/L Class 0 [facility] Endomysial IgA antibody assa yOrdered By: Hunter Ceja on 09-25-2024 Endomysial IgA Antibody Negative Negative [facility] Eosinophil percentageOrdered By: Hunter Ceaj on 09-25-2024 Eosinophils/100 WBC (Bld) 0.8 % 0-5 [facility] Erythrocyte Sed Rateon 09-25 SED RATE 5 mm/hr Normal 0-20 [facility] Comment on above: Performed By: #### L 504.2610, L803.2200, L500.4050, L3200.1100, L3100.3425, L100.9950, L3100.1850, L800.1280, L5500.0550, L101.9900, L503.0106, L3000.0375, L501.2300, L503.6550, L501.6710, L3400.8000, L501.5200, L3300.1200, L5500.0300, L100.0100, L3410.9998, L3300.0960, L3100.6900, L3200.0500, L3410.2400, L501.9520, L503.6150 #### [facility] Laboratory [address] [place], [address] Erythrocyte distribution wid th (RBC) [Ratio]Ordered By: Hunter Friend on 09-25-2024 Erythrocyte distribution width (RBC) [Entitic vol] 37.8 fL 35.1-43.9 [facility] Erythrocyte distribution wid th ratioOrdered By: Hunter Friend on 09-25-2024 Erythrocyte distribution width (RBC) [Ratio] 12.2 % 11.6-14.6 [facility] Erythrocyte sedimentation ra teOrdered By: Hunter Friend on 09-25-2024 ESR (Bld) [Velocity] 5 mm/h 0-20 [facility] house dust mite IgE Qn (S)Ordered By: Hunterstew Ceja on 09-25-2024 Dermatophagoides pteronyss Allergen 0.25 kU/L High Class 0/I [facility] Ferritinon 09-25-2024 Ferritin [Mass/Vol] 273 ng/mL Normal 37-417 [facility] Comment on above: Performed By: #### L 504.2610, L803.2200, L500.4050, L3200.1100, L3100.3425, L100.9950, L3100.1850, L800.1280, L5500.0550, L101.9900, L503.0106, L3000.0375, L501.2300, L503.6550, L501.6710, L3400.8000, L501.5200, L3300.1200, L5500.0300, L100.0100, L3410.9998, L3300.0960, L3100.6900, L3200.0500, L3410.2400, L501.9520, L503.6150 #### [facility] Laboratory [address] [place], [address] GFR/1.73 sq M.predicted phan g non-blacks MDRD (S/P/Bld) [Vol rate/Area]Ordered By: Hunter Ceja on 09-25-2024 Estimated GFR (MDRD) Non-Af Amer 112 >60 [facility] Comment on above: mL/min/1.73m2 CKD-EP I Creatinine Equation (2020) Gamma globulin Elph [Mass/Vo l]Ordered By: Hunter Ceja on 09-25-2024 Gamma Globulins (DENISE) 1.1 g/dL 0.4-1.8 [facility] Gastroenterology Visit Repor ton 09-25-2024 Gastroenterology Visit Report [facility] Gastroenterology [address] [place] [address] OFFICE VISIT Date of Service: 09/25/24 MR#: [id number] Acct: [id number] Name: MC RICE Rep #: [id number] : 2000 Provider: Hunter Ceja DO Age/Sex: 24/M Location[place] [facility] [place] Status: Signed Intake Vital Signs 09/25/24 09:10 [...] to the office today for initial consult. *[facility] established 09.25.24 pt presents today to transfer care from [facility]. Pt has a long history of IBD and RA. Pt reports he was diagnosed with RA when he was 3 and is taking Rituximab infusions for this. Pt was diagnosed with IBD around 2019 and is on Mesalamine and Stelara Q5W. Pt reports his last colonoscopy was 2303-1992. Reports he has flares every few months. Pt reports daily nausea. [...] Nutritional Appearance: well nourished Orientation: oriented x3 HENMT Head: normal to inspection Ears: hearing grossly [...] was diagnosed (more content not included)... Normal [facility] HBV surface Ag IA QlOrdered By: Hunter Friend on 09-25-2024 Hepatitis B Surface Antigen Negative Negative [facility] HaptoglobinOrdered By: Leigha barahona Friend on 09-25-2024 Haptoglobin 111 mg/dL 17-317 [facility] Comment on above: Performed at: [address] [id number] Director: Tim Adkins PhD, Phone: [phone] at: [facility] Lab[address] [id number] Director: Antonio Liu MD, Phone: [phone] Hematocrit Auto (Bld) [Volum e fraction]Ordered By: Hutner Ceja on 09-25-2024 Hematocrit (Bld) [Volume fraction] 45.5 % 40-54 [facility] Hemoglobin (Reticulocytes) [ Entitic mass]Ordered By: Hunter Ceja on 09-25-2024 Reticulocyte Hemoglobin Equivalent 33.0 pg 30-35 [facility] Hemoglobin measurementOrdere d By: Hunter Ceja on 09-25-2024 Hemoglobin (Bld) [Mass/Vol] 16.2 g/dL 13.0-16.5 [facility] Hepatitis A virus IgM antibo dy assayOrdered By: Hunter Ceja on 09-25-2024 Hepatitis A IgM Antibody Negative Negative [facility] Comment on above: A negative anti-HAV IgM result suggests no recent orcurrent HAV infection. Hepatitis B virus core IgM a ntibody assayOrdered By: Hunter Ceja on 09-25-2024 Hepatitis B Core IgM Antibody Negative Negative [facility] Hepatitis C virus antibody a ssayOrdered By: Hunter Ceja on 09-25-2024 Hepatitis C Antibody (EIA) Non-Reactive Non Reactive [facility] IgA [Mass/Vol]Ordered By: Ra case Ceja on 09-25-2024 Immunoglobulin A 141 mg/dL 90-386 [facility] IgEOrdered By: Hunter mayer on 09-25-2024 Immunoglobulin E 79 IU/mL 6-495 [facility] IgG [Mass/Vol]Ordered By: Ra case Ceja on 09-25-2024 Immunoglobulin G Not Reportable [facility] Immunoglobulin G Total 1117 mg/dL 603-1613 [facility] IgG subclass 1 (S) [Mass/Vol ]Ordered By: Hunter Ceja on 09-25-2024 Immunoglobulin G1 607 mg/dL 248-810 [facility] IgG subclass 2 (S) [Mass/Vol ]Ordered By: Hunter Ceja on 09-25-2024 Immunoglobulin G2 197 mg/dL 130-555 [facility] IgG subclass 3 (S) [Mass/Vol ]Ordered By: Hunter Ceja on 09-25-2024 Immunoglobulin G3 62 mg/dL 15-102 [facility] Immature granulocytes/100 WB C Auto (Bld)Ordered By: Hunter Ceja on 09-25-2024 Immature granulocytes/100 WBC (Bld) 0.200 % 0.0-0.9 [facility] Comment on above: IG% - Immature Granu locytes (promyelocytes, myelocytes and metamyelocytes) > 1% indicates that a LEFT SHIFT is Present. Immature reticulocyte fracti onOrdered By: Hunter Ceja on 09-25-2024 Immature Reticulocyte Fraction 2.80 % Low 3.00-15.90 [facility] Immunoglobulin G4 measuremen tOrdered By: Hunter Ceja on 09-25-2024 Immunoglobulin G4 30 mg/dL 2-96 [facility] Immunoglobulin M measurement Ordered By: Hunter Ceja on 09-25-2024 Immunoglobulin M 82 mg/dL 20-172 [facility] Interpretation IEP [Interp]O rdered By: Hunter Ceja on 09-25-2024 Immunofixation Screen Comment . [facility] Comment on above: No monoclonality det ected. Ironon 09-25-2024 Iron [Mass/Vol] 198 ug/dL High 65-175 [facility] Comment on above: Order Comment: [id number] Performed By: #### L 504.2610, L803.2200, L500.4050, L3200.1100, L3100.3425, L100.9950, L3100.1850, L800.1280, L5500.0550, L101.9900, L503.0106, L3000.0375, L501.2300, L503.6550, L501.6710, L3400.8000, L501.5200, L3300.1200, L5500.0300, L100.0100, L3410.9998, L3300.0960, L3100.6900, L3200.0500, L3410.2400, L501.9520, L503.6150 ####[facility] [address] [place], [place], [address] Iron (Unsp spec) [Mass/Mass] Ordered By: Hunter Ceja on 09-25-2024 Iron [Mass/Vol] 198 ug/dL High 65-175 [facility] grass IgE Qn ( S)Ordered By: Hunter Ceja on 09-25-2024 [facility] Blue (November) Grass IgE Ab <0.10 kU/L Class 0 [facility] L503.0106on 09-25-2024 Cobalamin (Vitamin B12) [Mass/Vol] 484 pg/mL Normal 180-914 [facility] Comment on above: Performed By: #### L 504.2610, L803.2200, L500.4050, L3200.1100, L3100.3425, L100.9950, L3100.1850, L800.1280, L5500.0550, L101.9900, L503.0106, L3000.0375, L501.2300, L503.6550, L501.6710, L3400.8000, L501.5200, L3300.1200, L5500.0300, L100.0100, L3410.9998, L3300.0960, L3100.6900, L3200.0500, L3410.2400, L501.9520, L503.6150 #### [facility] Laboratory [address] [place], [address] LDHon 09-25-2024 LDH 185 U/L Normal 87-241 [facility] Comment on above: Order Comment: [id number] Performed By: #### L 504.2610, L803.2200, L500.4050, L3200.1100, L3100.3425, L100.9950, L3100.1850, L800.1280, L5500.0550, L101.9900, L503.0106, L3000.0375, L501.2300, L503.6550, L501.6710, L3400.8000, L501.5200, L3300.1200, L5500.0300, L100.0100, L3410.9998, L3300.0960, L3100.6900, L3200.0500, L3410.2400, L501.9520, L503.6150 ####[facility] [id number] [place], [place], [id number] Laboratory - Chemistry and C hemistry - challengeOrdered By: Hunter Ceja on 09-25-2024 AST [Catalytic activity/Vol] 38 U/L <38 [facility] Lactate dehydrogenase (LDH) measurementOrdered By: Hunter Ceja on 09-25-2024 LDH [Catalytic activity/Vol] 185 U/L 87-241 [facility] Lymphocytes Auto (Unsp spec) [#/Vol]Ordered By: Hunterpanchito Ceja on 09-25-2024 Lymphocytes (Bld) [#/Vol] 1.52 10*3/uL 0.83-4.51 [facility] Lymphocytes/100 WBC Auto (Un sp spec)Ordered By: Hunterstew Ceja on 09-25-2024 Lymphocytes/100 WBC (Bld) 31.0 % 19-41 [facility] M. tuberculosis tuberculin s domenic IFN-g Ql (Bld)Ordered By: Hunter Brenna on 09-25-2024 TB Test (QFT) Antigen 1 0.05 IU/mL . [facility] MCV (mean corpuscular volume ) determinationOrdered By: Hunterstew Ceja on 09-25-2024 MCV (RBC) [Entitic vol] 85.2 fL 80-94 [facility] Magnesiumon 09-25-2024 Magnesium [Mass/Vol] 2.2 mg/dL Normal 1.5-2.2 [facility] Comment on above: Performed By: #### L 504.2610, L803.2200, L500.4050, L3200.1100, L3100.3425, L100.9950, L3100.1850, L800.1280, L5500.0550, L101.9900, L503.0106, L3000.0375, L501.2300, L503.6550, L501.6710, L3400.8000, L501.5200, L3300.1200, L5500.0300, L100.0100, L3410.9998, L3300.0960, L3100.6900, L3200.0500, L3410.2400, L501.9520, L503.6150 ####[facility] [id number] [place], [address] Magnesium (Unsp spec) [Mass/ Vol]Ordered By: Hunter Ceja on 09-25-2024 Magnesium [Mass/Vol] 2.2 mg/dL 1.5-2.2 [facility] Mean corpuscular hemoglobin (MCH) determinationOrdered By: Hunter Ceja on 09-25-2024 MCH (RBC) [Entitic mass] 30.3 pg 27.0-32.0 [facility] Mean corpuscular hemoglobin concentration (MCHC) determinationOrdered By: Hunter Ceja on 09-25-2024 MCHC (RBC) [Mass/Vol] 35.6 g/dL 32-36 [facility] Mean platelet volume determi nationOrdered By: Hunter Ceja on 09-25-2024 Platelet mean volume (Bld) [Entitic vol] 8.6 fL 6.2-12.0 [facility] Mitochondria Ab Ql (S)Ordere d By: Hunter Ceja on 09-25-2024 Anti-Mitochondrial Antibody <20.0 Units 0.0-20.0 [facility] Comment on above: Negative 0.0 - 20.0 Equivocal 20.1 - 24.9 Positive >24.9Mitochondrial (M2) Antibodies are found in 90-96% ofpatients with primary biliary cirrhosis. Monocyte percentageOrdered B y: Hunter Ceja on 09-25-2024 Monocytes/100 WBC (Bld) 8.4 % 0-10 [facility] Mouse urine IgEOrdered By: Be Ceja on 09-25-2024 Mouse Urine Allergen IgE Antibody <0.10 kU/L Class 0 [facility] Comment on above: Performed at: [address] [id number] Director: Tim Adkins PhD, Phone: [phone] at: [facility] [address] [id number] Director: Antonio Liu MD, Phone: [phone] Neutrophil cytoplasmic Ab.cl assic Qn (S)Ordered By: Hunter Ceja on 09-25-2024 Cytoplasmic ANCA (c-ANCA) Antibody <1:20 titer Neg:<1:20 [facility] Neutrophil cytoplasmic Ab.pe rinuclear IF (S) [Titer]Ordered By: Hunter Ceja on 09-25-2024 Perinuclear ANCA (p-ANCA) Antibody <1:20 titer Neg:<1:20 [facility] Comment on above: The presence of posi tive fluorescence exhibiting P-ANCA orC-ANCA patterns alone is not specific for the diagnosis ofWegener's Granulomatosis (WG) or microscopic polyangiitis.Decisions about treatment should not be based solely onANCA IFA results. The [employer] ANCA Group Consensusrecommends follow up testing of positive sera with both WI-3 and MPO-ANCA enzyme immunoassays. As many as 5% serumsamples are positive only by EIA. Ref. AM J Clin [id number];111:507-513. Neutrophil percentageOrdered By: Hunter Ceja on 09-25-2024 Neutrophils/100 WBC (Bld) 59.2 % 47-70 [facility] No Panel InformationOrdered By: Hunter Ceja on 09-25-2024 Hepatitis C Antibody Comment Comment . [facility] Comment on above: Not infected with HC V unless early or acute infection issuspected (which may be delayed in an immunocompromisedindividual), or other evidence exists to indicate HCVinfection. Nucleated red blood cell per centageOrdered By: Hunter Ceja on 09-25-2024 Nucleated RBC/100 WBC (Bld) [Ratio] 0 % 0-5 [facility] Peanut IgE Qn (S)Ordered By: Hunter Ceja on 09-25-2024 Peanut Allergen (RAST) <0.10 kU/L Class 0 [facility] Phosphoruson 09-25-2024 Phosphate [Mass/Vol] 1.7 mg/dL Low 2.7-4.5 [facility] Comment on above: Performed By: #### L 504.2610, L803.2200, L500.4050, L3200.1100, L3100.3425, L100.9950, L3100.1850, L800.1280, L5500.0550, L101.9900, L503.0106, L3000.0375, L501.2300, L503.6550, L501.6710, L3400.8000, L501.5200, L3300.1200, L5500.0300, L100.0100, L3410.9998, L3300.0960, L3100.6900, L3200.0500, L3410.2400, L501.9520, L503.6150 #### [facility] [place], [address] Platelet countOrdered By: Ra case Ceja on 09-25-2024 Platelets (Bld) [#/Vol] 184 10*3/uL 150-450 [facility] Pork IgE Qn (S)Ordered By: Be Ceja on 09-25-2024 Pork Allergen (RAST) <0.10 kU/L Class 0 [facility] Potassium (Unsp spec) [Mass/ Vol]Ordered By: Hunter Ceja on 09-25-2024 Potassium [Moles/Vol] 3.9 mmol/L 3.3-5.1 [facility] Protein Fractions Immunofixa tion Pepe [Interp]Ordered By: Hunter Ceja on 09-25-2024 M-Darío (DENISE) Not Observed g/dL Not Observed [facility] Quantiferon-TB Gold Plus amanda tOrdered By: Hunter Ceja on 09-25-2024 TB Test (QFT) Comment . [facility] Comment on above: QuantiFERON-TB Gold Plus is [...] Test (QFT) Antigen 2 0.06 IU/mL . [facility] TB Test (QFT) Mitogen > 10.00 IU/mL . [facility] TB Test (QFT) Nil 0.06 IU/mL . [facility] TB Test (QFT) Positive Criteria Negative Negative [facility] Comment on above: No response to M [...] 09-25-2024 RBC (Bld) [#/Vol] 5.34 10*6/uL 4.6-6.2 [facility] Retic Panelon 09-25-2024 IM RET FRACTION 2.80 Low 3.00-15.90 [facility] Comment on above: Performed By: #### L 504.2610, L803.2200, L500.4050, L3200.1100, L3100.3425, L100.9950, L3100.1850, L800.1280, L5500.0550, L101.9900, L503.0106, L3000.0375, L501.2300, L503.6550, L501.6710, L3400.8000, L501.5200, L3300.1200, L5500.0300, L100.0100, L3410.9998, L3300.0960, L3100.6900, L3200.0500, L3410.2400, L501.9520, L503.6150 #### [facility] Laboratory [address] [place], [address] RET-HE 33.0 pg Normal 30-35 [facility] Comment on above: Performed By: #### L 504.2610, L803.2200, L500.4050, L3200.1100, L3100.3425, L100.9950, L3100.1850, L800.1280, L5500.0550, L101.9900, L503.0106, L3000.0375, L501.2300, L503.6550, L501.6710, L3400.8000, L501.5200, L3300.1200, L5500.0300, L100.0100, L3410.9998, L3300.0960, L3100.6900, L3200.0500, L3410.2400, L501.9520, L503.6150 #### [facility] Laboratory [address] [place], [address] Retic Count 0.36 Low 0.5-1.5 [facility] Comment on above: Performed By: #### L 504.2610, L803.2200, L500.4050, L3200.1100, L3100.3425, L100.9950, L3100.1850, L800.1280, L5500.0550, L101.9900, L503.0106, L3000.0375, L501.2300, L503.6550, L501.6710, L3400.8000, L501.5200, L3300.1200, L5500.0300, L100.0100, L3410.9998, L3300.0960, L3100.6900, L3200.0500, L3410.2400, L501.9520, L503.6150 #### [facility] Laboratory [address] [place], [address] Reticulocytes Auto (Bld) [#/ Vol]Ordered By: Hunter Friend on 09-25-2024 Reticulocyte Count 0.36 % Low 0.5-1.5 [facility] [place] IgE Qn (S)Ordered By: Hunter Friend on 09-25-2024 [place] Allergen IgE Antibody <0.10 kU/L Class 0 [facility] Serum Dermatophagoides farin ae specific IgE antibody assayOrdered By: Hunter Friend on 09-25-2024 Dermatophagoides farinae Allergen 0.37 kU/L High Class I [facility] Serum Vietnamese plantain speci fic IgE antibody assayOrdered By: Hunter Friend on 09-25-2024 Vietnamese Plantain Allergen (RAST) <0.10 kU/L Class 0 [facility] Serum albumin/globulin ratio Ordered By: Hunter Ceja on 09-25-2024 Albumin/Globulin (DENISE) 1.5 0.7-1.7 [facility] Serum common/short ragweed s pecific IgE antibody assayOrdered By: Hunter Ceja on 09-25-2024 Common Ragweed (Short) Allergen <0.10 kU/L Class 0 [facility] Serum creatinine measurement (mass/volume)Ordered By: Hunter Ceja on 09-25-2024 Creatinine [Mass/Vol] 0.97 mg/dL 0.70-1.20 [facility] Serum globulin measurementOr dered By: Hunter Ceja on 09-25-2024 Globulin (S) [Mass/Vol] 3.1 g/dL 2.2-4.2 [facility] Serum globulin measurement ( mass/volume)Ordered By: Hunter Ceja on 09-25-2024 Globulin (S) [Mass/Vol] 3.0 g/dL 2.2-3.9 [facility] Serum glucose measurement (m ass/volume)Ordered By: Hunter Ceja on 09-25-2024 Glucose [Mass/Vol] 86 mg/dL 70-99 [facility] Serum mussel specific IgE an tibody assayOrdered By: Hunter Ceja on 09-25-2024 Mussel Allergen IgE Antibody <0.10 kU/L Class 0 [facility] Serum or plasma alanine lewis otransferase (ALT) measurementOrdered By: Hunter Ceja on 09-25-2024 ALT [Catalytic activity/Vol] 35 U/L <47 [facility] Serum or plasma albumin bettina urement (mass/volume)Ordered By: Hunter Ceja on 09-25-2024 Albumin [Mass/Vol] 4.9 g/dL 3.5-5.0 [facility] Serum or plasma albumin/glob ulin mass ratioOrdered By: Hunter Ceja on 09-25-2024 Albumin/Globulin [Mass ratio] 1.6 {ratio} 0.9-2.4 [facility] Serum or plasma alkaline armand sphatase measurementOrdered By: Hunter Ceja on 09-25-2024 ALP [Catalytic activity/Vol] 63 U/L 40-129 [facility] Serum or plasma angiotensin converting enzyme measurement (enzymatic activity/volume)Ordered By: Hunter Ceja on 03-31-2025 Angiotensin converting enzyme [Catalytic activity/Vol] 72 U/L 14-82 [facility] Serum or plasma calcium bettina urement (mass/volume)Ordered By: Hunter Ceja on 09-25-2024 Calcium [Mass/Vol] 9.7 mg/dL 7.6-11.0 [facility] Serum or plasma ferritin dipak surement (mass/volume)Ordered By: Hunter Ceja on 09-25-2024 Ferritin [Mass/Vol] 273 ng/mL 37-417 [facility] Serum or plasma protein bettina urement (mass/volume)Ordered By: Hunter Ceja on 09-25-2024 Protein [Mass/Vol] 7.3 g/dL 6.0-8.5 [facility] Serum or plasma urea nitroge n measurement (mass/volume)Ordered By: Hunter Ceja on 09-25-2024 Urea nitrogen [Mass/Vol] 12 mg/dL 4-19 [facility] Serum phosphorus measurement Ordered By: Hunter Ceja on 09-25-2024 Phosphorus Level 1.7 mg/dL Low 2.7-4.5 [facility] Serum shrimp specific IgE an tibody assayOrdered By: Hunter Ceja on 09-25-2024 Shrimp Allergen <0.10 kU/L Class 0 [facility] [place] [facility] comment (Unsp spec) [Interp]Ordered By: Hunter Ceja on 09-25-2024 RAST Comment Comment . [facility] Comment on above: Levels of Specific I [...] on 09-25-2024 Sodium [Moles/Vol] 138 mmol/L 133-145 [facility] Soybean IgE Qn (S)Ordered By : Hunter Friend on 09-25-2024 Soybean Allergen (RAST) <0.10 kU/L Class 0 [facility] TSH DL <= 0.005 mIU/L QnOrde red By: Hunter Friend on 09-25-2024 Thyroid Stimulating Hormone (TSH) 0.283 uIU/mL Low 0.300-4.200 [facility] Thyroid Stim Hormone (TSH)on 09-25-2024 TSH 0.283 uIU/mL Low 0.300-4.200 [facility] Comment on above: Performed By: #### L 504.2610, L803.2200, L500.4050, L3200.1100, L3100.3425, L100.9950, L3100.1850, L800.1280, L5500.0550, L101.9900, L503.0106, L3000.0375, L501.2300, L503.6550, L501.6710, L3400.8000, L501.5200, L3300.1200, L5500.0300, L100.0100, L3410.9998, L3300.0960, L3100.6900, L3200.0500, L3410.2400, L501.9520, L503.6150 #### [facility] [address] [place], [address] Total proteinOrdered By: Ian lala Friend on 09-25-2024 Protein [Mass/Vol] 8.0 g/dL 5.9-8.4 [facility] Tuna IgE Qn (S)Ordered By: Be garcia Friend on 09-25-2024 Tuna Allergen (RAST) <0.10 kU/L Class 0 [facility] Vitamin B12 ser/plasOrdered By: Hunter Ceja on 09-25-2024 Cobalamin (Vitamin B12) [Mass/Vol] 484 pg/mL 180-914 [facility] Wheat IgE Qn (S)Ordered By: Hunter Ceja on 09-25-2024 Wheat Allergen (RAST) <0.10 kU/L Class 0 [facility] White Elm IgE Qn (S)Ordered By: Hunter Brenna on 09-25-2024 [place]m Allergen <0.10 kU/L Class 0 [facility] Clifton IgE Qn (S)Ordered By: Hunter Brenna on 09-25-2024 [place] Tree Allergen <0.10 kU/L Class 0 [facility] White blood cell (WBC) count Ordered By: Hunter Brenna on 09-25-2024 WBC (Bld) [#/Vol] 4.9 10*3/uL 4.4-11.0 [facility] Whole Egg IgE Qn (S)Ordered By: Hunter Brenna on 09-25-2024 Egg Whole Allergen <0.10 kU/L Class 0 [facility] tTG IgA Qn (S)Ordered By: case Brenna on 09-25-2024 Tissue Transglutaminase IgA Ab <2 U/mL 0-3 [facility] Comment on above: Negative 0 - 3 Weak Positive 4 - 10 Positive >10 Tissue Transglutaminase (tTG) has been identified as the endomysial antigen. Studies have demonstr- ated that endomysial IgA antibodies have over 99% specificity for gluten sensitive enteropathy. Progress Noteon 08-31-2024 [employer] Portal Consultant Authentication Interface Message Text Returning patient Mc [...] flu vaccine for this season. Last labs 06/14/24. 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 He had surgery on [...] swelling at (more content not included)... 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 male with a PMH significant for SAHWNEE followed in the Pediatric [facility] for abdominal pain, diarrhea and IBD-indeterminant colitis. At the time of the initial visit the family reported that GI symptoms were present for 6 months. The patient was experiencing diffuse abdominal pain, vomiting and diarrhea. The patient lost 40 lbs. The patient was seen by Adult GI at [facility]. A colonoscopy was performed on 01/09/2019 - [...] and righ (more content not included)... Normal [facility] 25(OH)D3 [facility] 25-hydroxyvitamin D3 [Mass/Vol] 32.2 ng/mL Normal >=30.0 [facility] Comment on above: Order Comment: Speci men Type: BLOOD SPECIMEN Ordering Facility: [facility] Address: [address] [place] [address] Result Comment: Clas sification of 25 [place] Vitamin D status: Deficiency: <= 20.0 ng/ml. Insufficiency: 21.0-29.0 ng/ml. Sufficiency: >= 30.0 ng/ml. Performed By: #### 1 989-3 #### [facility] CLIA [id number] [address] [place] [address] [place] CBC W Auto Differential pane l (Bld)on 07-31-2024 Basophils (Bld) [#/Vol] 0.05 10*3/uL Normal <0.11 [facility] Comment on above: Order Comment: Speci men Type: BLOOD SPECIMEN Ordering Facility: [facility] Address: [address] [place] [address] Performed By: #### 5 7021-8 #### [facility] CLIA [id number] [address] [place] [id number] [place] Basophils/100 WBC (Bld) 0.7 % Normal [facility] Comment on above: Order Comment: Speci men Type: BLOOD SPECIMEN Ordering Facility: [facility] Address: [address] [place] [address] Performed By: #### 5 7021-8 #### [facility] CLIA [id number] [address] [place], [place] [id number] [place] Differential cell count method Nom (Bld) Auto Normal [facility] Comment on above: Order Comment: Speci men Type: BLOOD SPECIMEN Ordering Facility: [facility] Address: [address] [place] [address] Performed By: #### 5 7021-8 #### [facility] CLIA [id number] [address] [place] [address] [place] Eosinophils (Bld) [#/Vol] 0.26 10*3/uL Normal <0.46 [facility] Comment on above: Order Comment: Speci men Type: BLOOD SPECIMEN Ordering Facility: [facility] Address: [address] [place] [address] Performed By: #### 5 7021-8 #### [facility] CLIA [id number] [address] [place] [address] [place] Eosinophils/100 WBC (Bld) 3.9 % Normal [facility] Comment on above: Order Comment: Speci men Type: BLOOD SPECIMEN Ordering Facility: [facility] Address: [address] [place] [address] Performed By: #### 5 7021-8 #### [facility] CLIA [id number] [address] [place] [address] [place] Erythrocyte distribution width (RBC) [Ratio] 12.3 % Normal 11.5-15.0 [facility] Comment on above: Order Comment: Speci men Type: BLOOD SPECIMEN Ordering Facility: [facility] Address: [address] [place] [address] Performed By: #### 5 7021-8 #### [facility] CLIA [id number] [address] [place] [address] [place] Hematocrit (Bld) [Volume fraction] 47.1 % Normal 39.0-51.0 [facility] Comment on above: Order Comment: Speci men Type: BLOOD SPECIMEN Ordering Facility: [facility] Address: [address] [place] [address] Performed By: #### 5 7021-8 #### [facility] CLIA [id number] [address] [place] [address] [place] Hemoglobin (Bld) [Mass/Vol] 15.4 g/dL Normal 13.0-17.0 [facility] Comment on above: Order Comment: Speci men Type: BLOOD SPECIMEN Ordering Facility: [facility] Address: [address] [place] [address] Performed By: #### 5 7021-8 #### [facility] CLIA [id number] [address] [place] [address] [place] Immature granulocytes (Bld) [#/Vol] 10*3/uL Normal <0.10 [facility] Comment on above: Order Comment: Speci men Type: BLOOD SPECIMEN Ordering Facility: [facility] Address: [address] [place] [address] Performed By: #### 5 7021-8 #### [facility] CLIA [id number] [address] [place] [address] [place] Immature granulocytes/100 WBC (Bld) 0.0 % Normal [facility] Comment on above: Order Comment: Speci men Type: BLOOD SPECIMEN Ordering Facility: [facility] Address: [address] [place] [address] Performed By: #### 5 7021-8 #### [facility] CLIA [id number] [address] [place] [address] [place] Lymphocytes (Bld) [#/Vol] 1.90 10*3/uL Normal 1.00-4.00 [facility] Comment on above: Order Comment: Speci men Type: BLOOD SPECIMEN Ordering Facility: [facility] Address: [address] [place] [address] Performed By: #### 5 7021-8 #### [facility] CLIA [id number] [address] [place], [place] [address] [place] [address] [place] Lymphocytes/100 WBC (Bld) 28.4 % Normal [facility] Comment on above: Order Comment: Speci men Type: BLOOD SPECIMEN Ordering Facility: [facility] Address: [address] [place] [address] Performed By: #### 5 7021-8 #### [facility] CLIA [id number] [address] [place] [address] [place] MCH (RBC) [Entitic mass] 29.8 pg Normal 26.0-34.0 [facility] Comment on above: Order Comment: Speci men Type: BLOOD SPECIMEN Ordering Facility: [facility] Address: [address] [place] [address] Performed By: #### 5 7021-8 #### [facility] CLIA [id number] [address] [place], [place] [address] [place] [address] [place] MCHC (RBC) [Mass/Vol] 32.7 g/dL Normal 30.5-36.0 [facility] Comment on above: Order Comment: Speci men Type: BLOOD SPECIMEN Ordering Facility: [facility] Address: [address] [place] [address] Performed By: #### 5 7021-8 #### [facility] CLIA [id number] [address] [place] [address] [place] MCV (RBC) [Entitic vol] 91.3 fL Normal 80.0-100.0 [facility] Comment on above: Order Comment: Speci men Type: BLOOD SPECIMEN Ordering Facility: [facility] Address: [address] [place] [address] Performed By: #### 5 7021-8 #### [facility] CLIA [id number] [address] [place] [address] [place] Monocytes (Bld) [#/Vol] 0.63 10*3/uL Normal <0.87 [facility] Comment on above: Order Comment: Speci men Type: BLOOD SPECIMEN Ordering Facility: [facility] Address: [address] [place] [address] Performed By: #### 5 7021-8 #### [facility] CLIA [id number] [address] [place], [place] [address] [place] [address] [place] Monocytes/100 WBC (Bld) 9.4 % Normal [facility] Comment on above: Order Comment: Speci men Type: BLOOD SPECIMEN Ordering Facility: [facility] Address: [address] [place] [address] Performed By: #### 5 7021-8 #### [facility] CLIA [id number] [address] [place] [address] [place] Neutrophils (Bld) [#/Vol] 3.86 10*3/uL Normal 1.45-7.50 [facility] Comment on above: Order Comment: Speci men Type: BLOOD SPECIMEN Ordering Facility: [facility] Address: [address] [place] [address] Performed By: #### 5 7021-8 #### [facility] CLIA [id number] [address] [place] [address] [place] Neutrophils/100 WBC (Bld) 57.6 % Normal [facility] Comment on above: Order Comment: Speci men Type: BLOOD SPECIMEN Ordering Facility: [facility] Address: [address] [place] [address] Performed By: #### 5 7021-8 #### [facility] CLIA [id number] [address] [place] [address] [place] Nucleated RBC (Bld) [#/Vol] Normal [facility] Comment on above: Order Comment: Kendricki men Type: BLOOD SPECIMEN Ordering Facility: [facility] Address: [address] [place] [address] Performed By: #### 5 7021-8 #### [facility] CLIA [id number] [address] [place] [address] [place] Nucleated RBC/100 WBC (Bld) [Ratio] Normal [facility] Comment on above: Order Comment: Cat anderson Type: BLOOD SPECIMEN Ordering Facility: [facility] Address: [address] [place] [address] Performed By: #### 5 7021-8 #### [facility] CLIA [id number] [address] [place] [address] [place] Platelet mean volume (Bld) [Entitic vol] 9.2 fL Normal 9.0-12.7 [facility] Comment on above: Order Comment: Cat [facility] Type: BLOOD SPECIMEN Ordering Facility: [facility] Address: [address] [place] [address] Performed By: #### 5 7021-8 #### [facility] CLIA [id number] [address] [place] [address] [place] Platelets (Bld) [#/Vol] 231 10*3/uL Normal 150-400 [facility] Comment on above: Order Comment: Cat [facility] Type: BLOOD SPECIMEN Ordering Facility: [facility] Address: [address] [place] [address] Performed By: #### 5 7021-8 #### [facility] CLIA [id number] [address] [place] [address] [place] RBC (Bld) [#/Vol] 5.16 10*6/uL Normal 4.20-6.00 [facility] Comment on above: Order Comment: Speci men Type: BLOOD SPECIMEN Ordering Facility: [facility] Address: [address] [place] [address] Performed By: #### 5 7021-8 #### [facility] CLIA [id number] [address] [place] [address] [place] [facility] WBC (Bld) [#/Vol] 6.70 10*3/uL Normal 3.70-11.00 [facility] Comment on above: Order Comment: Speci men Type: BLOOD SPECIMEN Ordering Facility: [facility] Address: [address] [place] [address] Performed By: #### 5 7021-8 #### [facility] CLIA [id number] [address] [place] [address] [facility] Comprehensive metabolic 2000 panelon 07-31-2024 Albumin [Mass/Vol] 4.5 g/dL Normal 3.9-4.9 [facility] Comment on above: Order Comment: Speci men Type: BLOOD SPECIMEN Ordering Facility: [facility] Address: [address] [place] [address] Performed By: #### 2 4323-8 #### [facility] CLIA [id number] [address] [place] [address] [facility] [place] ALP [Catalytic activity/Vol] 68 U/L Normal 38-113 [facility] Comment on above: Order Comment: Speci men Type: BLOOD SPECIMEN Ordering Facility: [facility] Address: [address] [place] [address] Performed By: #### 2 4323-8 #### [facility] CLIA [id number] [address] [place] [address] [facility] [place] ALT With P-5'-P [Catalytic activity/Vol] 16 U/L Normal 10-54 [facility] Comment on above: Order Comment: Speci men Type: BLOOD SPECIMEN Ordering Facility: [facility] Address: [address] [place] [address] Performed By: #### 2 4323-8 #### [facility] CLIA [id number] [address] [facility] [place] [address] [place] Anion gap [Moles/Vol] 8 mmol/L Normal 8-15 [facility] Comment on above: Order Comment: Speci men Type: BLOOD SPECIMEN Ordering Facility: [facility] Address: [address] [place] [address] Performed By: #### 2 4323-8 #### [facility] CLIA [id number] [address] [place] [address] [place] AST With P-5'-P [Catalytic activity/Vol] 23 U/L Normal 14-40 [facility] Comment on above: Order Comment: Speci men Type: BLOOD SPECIMEN Ordering Facility: [facility] Address: [address] [place] [address] Performed By: #### 2 4323-8 #### [facility] CLIA [id number] [address] [place] [address] [place] Bilirubin [Mass/Vol] 0.4 mg/dL Normal 0.2-1.3 [facility] Comment on above: Order Comment: Speci men Type: BLOOD SPECIMEN Ordering Facility: [facility] Address: [address] [place] [address] Performed By: #### 2 4323-8 #### [facility] CLIA [id number] [address] [place] [address] [place] Calcium [Mass/Vol] 9.7 mg/dL Normal 8.5-10.2 [facility] Comment on above: Order Comment: Speci men Type: BLOOD SPECIMEN Ordering Facility: [facility] Address: [address] [place] [address] Performed By: #### 2 4323-8 #### [facility] CLIA [id number] [address] [place] [address] [place] Chloride [Moles/Vol] 105 mmol/L Normal 98-107 [facility] Comment on above: Order Comment: Speci men Type: BLOOD SPECIMEN Ordering Facility: [facility] Address: [address] [place] [address] Performed By: #### 2 4323-8 #### [facility] CLIA [id number] [address] [place] [address] [place] CO2 [Moles/Vol] 26 mmol/L Normal 22-30 [facility] Comment on above: Order Comment: Speci men Type: BLOOD SPECIMEN Ordering Facility: [facility] Address: [address] [place] [address] Performed By: #### 2 4323-8 #### [facility] CLIA [id number] [address] [place] [address] [place] Creatinine [Mass/Vol] 1.03 mg/dL Normal 0.73-1.22 [facility] Comment on above: Order Comment: Speci men Type: BLOOD SPECIMEN Ordering Facility: [facility] Address: [address] [place] [address] Performed By: #### 2 4323-8 #### [facility] CLIA [id number] [address] [place] [address] [place] Creatinine and Glomerular filtration rate.predicted panel (S/P/Bld) 105 mL/min/1.73m??? Normal >=60 [facility] Comment on above: Order Comment: Speci men Type: BLOOD SPECIMEN Ordering Facility: [facility] Address: [address] [place] [address] Result Comment: Pamela mated Glomerular Filtration Rate [...] GFR. Performed By: #### 2 4323-8 #### [facility] CLIA [id number] [address] [place] [address] [place] Glucose [Mass/Vol] 93 mg/dL Normal 74-99 [facility] Comment on above: Order Comment: Cat anderson Type: BLOOD SPECIMEN Ordering Facility: [facility] Address: [address] [place] [address] Result Comment: The [place] [employer] (ADA) provides guidance for cutoff [...] Standards of Medical Care in Diabetes 2016, [place] [employer]. Diabetes Care. 2016.39(Suppl 1). Performed By: #### 2 4323-8 #### [facility] CLIA [id number] [address] [place] [address] [place] Potassium [Moles/Vol] 4.8 mmol/L Normal 3.7-5.1 [facility] Comment on above: Order Comment: Cat anderson Type: BLOOD SPECIMEN Ordering Facility: [facility] Address: [address] [place] [address] Performed By: #### 2 4323-8 #### [facility] CLIA [id number] [address] [place] [address] [place] Protein [Mass/Vol] 7.4 g/dL Normal 6.3-8.0 [facility] Comment on above: Order Comment: Cat anderson Type: BLOOD SPECIMEN Ordering Facility: [facility] Address: [address] [place] [address] Performed By: #### 2 4323-8 #### [facility] CLIA [id number] [address] [place] [address] [place] Sodium [Moles/Vol] 139 mmol/L Normal 136-144 [facility] Comment on above: Order Comment: Cat men Type: BLOOD SPECIMEN Ordering Facility: [facility] Address: [address] [place] [address] Performed By: #### 2 4323-8 #### [facility] CLIA [id number] [address] [place] [address] [place] Urea nitrogen [Mass/Vol] 14 mg/dL Normal 9-24 [facility] Comment on above: Order Comment: Speci men Type: BLOOD SPECIMEN Ordering Facility: [facility] Address: [address] [place] [address] Performed By: #### 2 4323-8 #### [facility] CLIA [id number] [address] [place] [address] [place] ESR Westergren method (Bld) [Velocity]on 07-31-2024 ESR (Bld) [Velocity] 2 mm/h Normal 0-15 [facility] Comment on above: Order Comment: Speci men Type: BLOOD SPECIMEN Ordering Facility: [facility] Address: [address] [place] [address] Performed By: #### 4 537-7 #### [facility] CLIA [id number] [address] [place] 25(OH)D3 SerPl-mCncon 2023 25-hydroxyvitamin D3 [Mass/Vol] 29.1 ng/mL Low >=30.0 [facility] Comment on above: Order Comment: Speci men Type: BLOOD SPECIMEN Ordering Facility: [facility] Address: [address] [place] [address] Result Comment: Clas sification of 25 [place] Vitamin D status: Deficiency: <= 20.0 ng/ml. Insufficiency: 21.0-29.0 ng/ml. Sufficiency: >= 30.0 ng/ml. Performed By: #### 1 989-3 #### [facility] CLIA [id number] [address] [place] [id number] [place] [address] [place] CBC W Auto Differential pane l (Bld)on 06-14-2024 Basophils (Bld) [#/Vol] 0.06 10*3/uL Normal <0.11 [facility] Comment on above: Order Comment: Speci men Type: BLOOD SPECIMEN Ordering Facility: [facility] Address: [address] [place] [address] Performed By: #### 5 7021-8 #### [facility] CLIA [id number] [address] [place] [address] [place] Basophils/100 WBC (Bld) 1.0 % Normal [facility] Comment on above: Order Comment: Speci men Type: BLOOD SPECIMEN Ordering Facility: [facility] Address: [address] [place] [address] Performed By: #### 5 7021-8 #### [facility] CLIA [id number] [address] [place] [address] [facility] [place] Differential cell count method Nom (Bld) Auto Normal [facility] Comment on above: Order Comment: Speci men Type: BLOOD SPECIMEN Ordering Facility: [facility] Address: [facility] [place] [address] Performed By: #### 5 7021-8 #### [facility] CLIA [id number] [address] [place] [address] [place] Eosinophils (Bld) [#/Vol] 0.29 10*3/uL Normal <0.46 [facility] Comment on above: Order Comment: Speci men Type: BLOOD SPECIMEN [facility] [facility] Address: [address] [place] [address] Performed By: #### 5 7021-8 #### [facility] CLIA [id number] [address] [place] [address] [place] Eosinophils/100 WBC (Bld) 4.8 % Normal [facility] Comment on above: Order Comment: Speci men Type: BLOOD SPECIMEN Ordering Facility: [facility] Address: [address] [place] [address] Performed By: #### 5 7021-8 #### [facility] CLIA [id number] [address] [place] [address] [place] Erythrocyte distribution width (RBC) [Ratio] 12.0 % Normal 11.5-15.0 [facility] Comment on above: Order Comment: Speci men Type: BLOOD SPECIMEN Ordering Facility: [facility] Address: [address] [place] [address] Performed By: #### 5 7021-8 #### [facility] CLIA [id number] [address] [place] [address] [place] Hematocrit (Bld) [Volume fraction] 47.9 % Normal 39.0-51.0 [facility] Comment on above: Order Comment: Speci men Type: BLOOD SPECIMEN Ordering Facility: [facility] Address: [address] [place] [address] Performed By: #### 5 7021-8 #### [facility] CLIA [id number] [address] [place] [address] [place] Hemoglobin (Bld) [Mass/Vol] 15.5 g/dL Normal 13.0-17.0 [facility] Comment on above: Order Comment: Speci men Type: BLOOD SPECIMEN Ordering Facility: [facility] Address: [address] [place] [address] Performed By: #### 5 7021-8 #### [facility] CLIA [id number] [address] [place] [address] [place] Immature granulocytes (Bld) [#/Vol] 10*3/uL Normal <0.10 [facility] Comment on above: Order Comment: Speci men Type: BLOOD SPECIMEN Ordering Facility: [facility] Address: [address] [place] [address] Performed By: #### 5 7021-8 #### [facility] CLIA [id number] [address] [place] [id number] [facility] [place] Immature granulocytes/100 WBC (Bld) 0.2 % Normal [facility] Comment on above: Order Comment: Speci men Type: BLOOD SPECIMEN Ordering Facility: [facility] Address: [address] [place] [address] Performed By: #### 5 7021-8 #### [facility] CLIA [id number] [address] [place] [address] [place] Lymphocytes (Bld) [#/Vol] 1.62 10*3/uL Normal 1.00-4.00 [facility] Comment on above: Order Comment: Speci men Type: BLOOD SPECIMEN Ordering Facility: [facility] Address: [address] [place] [address] Performed By: #### 5 7021-8 #### [facility] CLIA [id number] [address] [place] [address] [place] Lymphocytes/100 WBC (Bld) 26.6 % Normal [facility] Comment on above: Order Comment: Speci men Type: BLOOD SPECIMEN Ordering Facility: [facility] Address: [address] [place] [address] Performed By: #### 5 7021-8 #### [facility] CLIA [id number] [address] [place], [place] [address] [place] [address] [place] MCH (RBC) [Entitic mass] 29.5 pg Normal 26.0-34.0 [facility] Comment on above: Order Comment: Speci men Type: BLOOD SPECIMEN Ordering Facility: [facility] Address: [address] [place] [address] Performed By: #### 5 7021-8 #### [facility] CLIA [id number] [address] [place], [place] [address] [place] [address] [place] MCHC (RBC) [Mass/Vol] 32.4 g/dL Normal 30.5-36.0 [facility] Comment on above: Order Comment: Speci men Type: BLOOD SPECIMEN Ordering Facility: [facility] Address: [address] [place] [address] Performed By: #### 5 7021-8 #### [facility] CLIA [id number] [address] [place] [address] [place] MCV (RBC) [Entitic vol] 91.1 fL Normal 80.0-100.0 [facility] Comment on above: Order Comment: Speci men Type: BLOOD SPECIMEN Ordering Facility: [facility] Address: [address] [place] [address] Performed By: #### 5 7021-8 #### [facility] CLIA [id number] [address] [place] [address] [place] Monocytes (Bld) [#/Vol] 0.62 10*3/uL Normal <0.87 [facility] Comment on above: Order Comment: Speci men Type: BLOOD SPECIMEN Ordering Facility: [facility] Address: [address] [place] [address] Performed By: #### 5 7021-8 #### [facility] CLIA [id number] [address] [place] [address] [place] Monocytes/100 WBC (Bld) 10.2 % Normal [facility] Comment on above: Order Comment: Speci men Type: BLOOD SPECIMEN Ordering Facility: [facility] Address: [address] [place] [address] Performed By: #### 5 7021-8 #### [facility] CLIA [id number] [address] [place] [address] [place] Neutrophils (Bld) [#/Vol] 3.48 10*3/uL Normal 1.45-7.50 [facility] Comment on above: Order Comment: Speci men Type: BLOOD SPECIMEN Ordering Facility: [facility] Address: [address] [place] [address] Performed By: #### 5 7021-8 #### [facility] CLIA [id number] [address] [place] [address] [place] Neutrophils/100 WBC (Bld) 57.2 % Normal [facility] Comment on above: Order Comment: Speci men Type: BLOOD SPECIMEN Ordering Facility: [facility] Address: [address] [place] [address] Performed By: #### 5 7021-8 #### [facility] CLIA [id number] [address] [place] [address] [place] Nucleated RBC (Bld) [#/Vol] Normal [facility] Comment on above: Order Comment: Speci men Type: BLOOD SPECIMEN Ordering Facility: [facility] Address: [address] [place] [address] Performed By: #### 5 7021-8 #### [facility] CLIA [id number] [address] [place] [address] [place] Nucleated RBC/100 WBC (Bld) [Ratio] Normal [facility] Comment on above: Order Comment: Speci men Type: BLOOD SPECIMEN Ordering Facility: [facility] Address: [address] [place] [address] Performed By: #### 5 7021-8 #### [facility] CLIA [id number] [address] [place] [address] [place] Platelet mean volume (Bld) [Entitic vol] 9.1 fL Normal 9.0-12.7 [facility] Comment on above: Order Comment: Speci men Type: BLOOD SPECIMEN Ordering Facility: [facility] Address: [address] [place] [address] Performed By: #### 5 7021-8 #### [facility] CLIA [id number] [address] [place] [address] [place] Platelets (Bld) [#/Vol] 239 10*3/uL Normal 150-400 [facility] Comment on above: Order Comment: Speci men Type: BLOOD SPECIMEN Ordering Facility: [facility] Address: [address] [place] [address] Performed By: #### 5 7021-8 #### [facility] CLIA [id number] [address] [place] [address] [place] RBC (Bld) [#/Vol] 5.26 10*6/uL Normal 4.20-6.00 [facility] Comment on above: Order Comment: Speci men Type: BLOOD SPECIMEN Ordering Facility: [facility] Address: [address] [place] [address] Performed By: #### 5 7021-8 #### [facility] CLIA [id number] [address] [place] [address] [place] WBC (Bld) [#/Vol] 6.08 10*3/uL Normal 3.70-11.00 [facility] Comment on above: Order Comment: Speci men Type: BLOOD SPECIMEN Ordering Facility: [facility] Address: [address] [place] [address] Performed By: #### 5 7021-8 #### [facility] CLIA [id number] [address] [place] [address] [facility] Comprehensive metabolic 2000 panelon 06-14-2024 Albumin [Mass/Vol] 4.6 g/dL Normal 3.9-4.9 [facility] Comment on above: Order Comment: Speci men Type: BLOOD SPECIMEN Ordering Facility: [facility] Address: [address] [place] [address] Performed By: #### 2 4323-8 #### [facility] CLIA [id number] [address] [place] [address] [place] ALP [Catalytic activity/Vol] 63 U/L Normal 38-113 [facility] Comment on above: Order Comment: Speci men Type: BLOOD SPECIMEN Ordering Facility: [facility] Address: [address] [place] [address] Performed By: #### 2 4323-8 #### [facility] CLIA [id number] [address] [place] [address] [facility] [place] ALT With P-5'-P [Catalytic activity/Vol] 15 U/L Normal 10-54 [facility] Comment on above: Order Comment: Speci men Type: BLOOD SPECIMEN Ordering Facility: [facility] Address: [address] [place] [address] Performed By: #### 2 4323-8 #### [facility] CLIA [id number] [address] [place] [address] [facility] [place] Anion gap [Moles/Vol] 8 mmol/L Normal 8-15 [facility] Comment on above: Order Comment: Speci men Type: BLOOD SPECIMEN Ordering Facility: [facility] Address: [address] [place] [address] Performed By: #### 2 4323-8 #### [facility] CLIA [id number] [address] [place] [address] [place] AST With P-5'-P [Catalytic activity/Vol] 19 U/L Normal 14-40 [facility] Comment on above: Order Comment: Speci men Type: BLOOD SPECIMEN Ordering Facility: [facility] Address: [address] [place] [address] Performed By: #### 2 4323-8 #### [facility] CLIA [id number] [address] [place] [address] [place] Bilirubin [Mass/Vol] 0.6 mg/dL Normal 0.2-1.3 [facility] Comment on above: Order Comment: Speci men Type: BLOOD SPECIMEN Ordering Facility: [facility] Address: [address] [place] [address] Performed By: #### 2 4323-8 #### [facility] CLIA [id number] [address] [place] [address] [place] Calcium [Mass/Vol] 10.0 mg/dL Normal 8.5-10.2 [facility] Comment on above: Order Comment: Speci men Type: BLOOD SPECIMEN Ordering Facility: [facility] Address: [address] [place] [address] Performed By: #### 2 4323-8 #### [facility] CLIA [id number] [address] [facility] [place] [address] [place] Chloride [Moles/Vol] 102 mmol/L Normal 98-107 [facility] Comment on above: Order Comment: Speci men Type: BLOOD SPECIMEN Ordering Facility: [facility] Address: [address] [place] [address] Performed By: #### 2 4323-8 #### [facility] CLIA [id number] [address] [place] [address] [place] CO2 [Moles/Vol] 27 mmol/L Normal 22-30 [facility] Comment on above: Order Comment: Speci men Type: BLOOD SPECIMEN Ordering Facility: [facility] Address: [address] [place] [address] Performed By: #### 2 4323-8 #### [facility] CLIA [id number] [address] [place] [address] [place] Creatinine [Mass/Vol] 0.98 mg/dL Normal 0.73-1.22 [facility] Comment on above: Order Comment: Speci men Type: BLOOD SPECIMEN Ordering Facility: [facility] Address: [address] [place] [address] Performed By: #### 2 4323-8 #### [facility] CLIA [id number] [address] [place] [address] [facility] Creatinine and Glomerular filtration rate.predicted panel (S/P/Bld) 111 mL/min/1.73m??? Normal >=60 [facility] Comment on above: Order Comment: Speci men Type: BLOOD SPECIMEN Ordering Facility: [facility] Address: [address] [place] [address] Result Comment: Pamela mated Glomerular Filtration Rate [...] GFR. Performed By: #### 2 4323-8 #### [facility] CLIA [id number] [address] [place] [address] [place] Glucose [Mass/Vol] 87 mg/dL Normal 74-99 [facility] Comment on above: Order Comment: Speci men Type: BLOOD SPECIMEN Ordering Facility: [facility] Address: [address] [place] [address] Result Comment: The [place] Diabetes Association (ADA) provides guidance for cutoff [...] Standards of Medical Care in Diabetes 2016, [place] [employer]. Diabetes Care. 2016.39(Suppl 1). Performed By: #### 2 4323-8 #### [facility] CLIA [id number] [address] [place] [address] [place] Potassium [Moles/Vol] 4.6 mmol/L Normal 3.7-5.1 [facility] Comment on above: Order Comment: Speci men Type: BLOOD SPECIMEN Ordering Facility: [facility] Address: [address] [place] [address] Performed By: #### 2 4323-8 #### [facility] CLIA [id number] [address] [place] [address] [place] Protein [Mass/Vol] 7.3 g/dL Normal 6.3-8.0 [facility] Comment on above: Order Comment: Cat anderson Type: BLOOD SPECIMEN Ordering Facility: [facility] Address: [address] [place] [address] Performed By: #### 2 4323-8 #### [facility] CLIA [id number] [address] [place] [address] [place] Sodium [Moles/Vol] 137 mmol/L Normal 136-144 [facility] Comment on above: Order Comment: Kendricki justin Type: BLOOD SPECIMEN Ordering Facility: [facility] Address: [address] [place] [address] Performed By: #### 2 4323-8 #### [facility] CLIA [id number] [address] [place] [id number] [place] Urea nitrogen [Mass/Vol] 12 mg/dL Normal 9-24 [facility] Comment on above: Order Comment: Speci men Type: BLOOD SPECIMEN Ordering Facility: [facility] Address: [place] [address] Performed By: #### 2 4323-8 #### [facility] CLIA [id number] [address] [place] [address] [place] ESR Westergren method (Bld) [Velocity]on 06-14-2024 ESR (Bld) [Velocity] 2 mm/h Normal 0-15 [facility] Comment on above: Order Comment: Speci men Type: BLOOD SPECIMEN Ordering Facility: [facility] Address: [place] [address] Performed By: #### 4 537-7 #### [facility] CLIA [id number] [address] [place] Progress Noteon 05-17-2024 [employer] Consultant Authentication Interface Message Text Returning patient Mc [...] in March (more content not included)... Normal [facility] COMPLETE BLOOD COUNT WITH DI FFERENTIALon 03-30-2024 Basophils (Bld) [#/Vol] 0.04 10*3/uL Normal 0.02-0.06 [facility] Comment on above: Order Comment: Relea se to patient->Automatic Performed By: #### 1 001 #### VANNA [employer] ([id number]) [place]) [address] [place] [id number] [facility] Basophils/100 WBC (Bld) 0.6 % Normal 0.3-1.0 [facility] Comment on above: Order Comment: Relea se to patient->Automatic Performed By: #### 1 001 #### VANNA [employer] ([id number]) [employer]) [place], [place] [id number] [place] [address] Eosinophils (Bld) [#/Vol] 0.18 10*3/uL Normal 0.04-0.31 [facility] Comment on above: Order Comment: Relea se to patient->Automatic Performed By: #### 1 001 #### VANNA SAENZ W ([id number]) [facility] ([employer]) [address] Eosinophils/100 WBC (Bld) 2.6 % Normal 0.7-4.6 [facility] Comment on above: Order Comment: Relea se to patient->Automatic Performed By: #### 1 001 #### VANNA SAENZ W ([id number]) [facility] ([employer]) [address] Erythrocyte distribution width (RBC) [Ratio] 12.3 % Normal 11.9-13.5 [facility] Comment on above: Order Comment: Relea se to patient->Automatic Performed By: #### 1 001 #### VANNA EverestMAGALYS W ([id number]) [facility] ([facility]) [address] Hematocrit (Bld) [Volume fraction] 46.1 % Normal 40.6-50.2 [facility] Comment on above: Order Comment: Relea se to patient->Automatic Performed By: #### 1 001 #### VANNA SAENZ W ([id number]) [facility] ([facility]) [address] Hemoglobin (Bld) [Mass/Vol] 15.5 g/dL Normal 13.5-17.0 [facility] Comment on above: Order Comment: Relea se to patient->Automatic Performed By: #### 1 001 #### VANNA EverestMAGALYS W ([id number]) [facility] ([facility]) [address] Immature granulocytes/100 WBC (Bld) 0.3 % Normal 0.2-0.5 [facility] Comment on above: Order Comment: Relea se to patient->Automatic Result Comment: Jillian ture Granulocyte Percent includes promyelocytes, myelocytes,and metamyelocytes. IG% > 1.0 indicates a left shift is present. With automated differentials, bands are included in the neutrophil count and not in the Immature Granulocyte Percent. Performed By: #### 1 001 #### VANNA SAENZ W ([id number]) [facility] ([facility]) [address] Lymphocytes (Bld) [#/Vol] 1.52 10*3/uL Normal 1.39-2.72 [facility] Comment on above: Order Comment: Relea se to patient->Automatic Performed By: #### 1 001 #### VANNA BACCON W ([id number]) [facility] ([facility]) [address] Lymphocytes/100 WBC (Bld) 22.1 % Normal 20.0-42.9 [facility] Comment on above: Order Comment: Relea se to patient->Automatic Performed By: #### 1 001 #### VANNA SAENZ W ([id number]) [facility] ([facility]) [address] MCH (RBC) [Entitic mass] 29.9 pg Normal 27.3-31.2 [facility] Comment on above: Order Comment: Relea se to patient->Automatic Performed By: #### 1 001 #### VANNA BACCON W ([id number]) [facility] ([facility]) [address] MCHC 33.6 % Normal 32.1-34.8 [facility] Comment on above: Order Comment: Relea se to patient->Automatic Performed By: #### 1 001 #### VANNA BACCON W ([id number]) [facility] ([facility]) [address] MCV (RBC) [Entitic vol] 88.8 fL Normal 82.8-92.0 [facility] Comment on above: Order Comment: Relea se to patient->Automatic Performed By: #### 1 001 #### VANNA BACCON W ([id number]) [facility] ([facility]) [address] Monocytes (Bld) [#/Vol] 0.67 10*3/uL Normal 0.38-0.83 [facility] Comment on above: Order Comment: Relea se to patient->Automatic Performed By: #### 1 001 #### VANNA SAENZ W ([id number]) [facility] ([facility]) [address] Monocytes/100 WBC (Bld) 9.7 % Normal 6.5-11.5 [facility] Comment on above: Order Comment: Relea se to patient->Automatic Performed By: #### 1 001 #### VANNA BACCON W ([id number]) [facility] ([facility]) [address] Neutrophils (Bld) [#/Vol] 4.45 10*3/uL Normal 2.07-6.00 [facility] Comment on above: Order Comment: Relea se to patient->Automatic Performed By: #### 1 001 #### VANNA SAENZ W ([id number]) [facility] ([facility]) [address] Neutrophils/100 WBC (Bld) 64.7 % Normal 43.5-69.0 [facility] Comment on above: Order Comment: Relea se to patient->Automatic Performed By: #### 1 001 #### VANNA BACCON W ([id number]) [facility] ([facility]) [address] Nucleated RBC/100 WBC (Bld) [Ratio] 0.0 % Normal 0.0-0.0 [facility] Comment on above: Order Comment: Relea se to patient->Automatic Performed By: #### 1 001 #### VANNA BACCON W ([id number]) [facility] ([facility]) [address] Platelet mean volume (Bld) [Entitic vol] 9.0 fL Low 9.6-11.8 [facility] Comment on above: Order Comment: Relea se to patient->Automatic Result Comment: MPV is platelet range and age dependent. Performed By: #### 1 001 #### VANNA BACCON W ([id number]) [facility] ([facility]) [address] Platelets (Bld) [#/Vol] 219 10*3/uL Normal 150-400 [facility] Comment on above: Order Comment: Relea se to patient->Automatic Performed By: #### 1 001 #### VANNA Quintana ([id number]) [facility] ([facility]) [address] RBC 5.19 10E12/L Normal 4.59-5.58 [facility] Comment on above: Order Comment: Relea se to patient->Automatic Performed By: #### 1 001 #### VANNA Quintana ([id number]) [facility] ([facility]) [address] WBC (Bld) [#/Vol] 6.9 10*3/uL Normal 4.5-9.6 [facility] Comment on above: Order Comment: Relea se to patient->Automatic Performed By: #### 1 001 #### VANNA Quintana ([id number]) [facility] ([employer]) [address] COMPREHENSIVE METABOLIC PANE Ravi 03-30-2024 Albumin [Mass/Vol] 4.5 g/dL Normal 3.5-5.0 [facility] Comment on above: Order Comment: Relea se to patient->Automatic Performed By: #### 1 001 #### VANNA Quintana ([id number]) [facility] ([facility]) [address] ALP [Catalytic activity/Vol] 63 U/L Normal 40-129 [facility] Comment on above: Order Comment: Relea se to patient->Automatic Performed By: #### 1 001 #### VANNA Quintana ([id number]) [facility] ([employer] [address] [place] ALT [Catalytic activity/Vol] 13 U/L Normal <=46 [facility] Comment on above: Order Comment: Relea se to patient->Automatic Performed By: #### 1 001 #### VANNA Quintana ([id number]) [facility] ([employer]) [address] AST [Catalytic activity/Vol] 24 U/L Normal <=37 [facility] Comment on above: Order Comment: Relea se to patient->Automatic Performed By: #### 1 001 #### VANNA SAENZ W ([id number]) [facility] ([employer] [address] [place] BILI,TOTAL 0.5 MG/DL Normal <=1.0 [facility] Comment on above: Order Comment: Relea se to patient->Automatic Performed By: #### 1 001 #### VANNA BACCON W ([id number]) [facility] ([employer]) [place] [address] [place] Calcium [Mass/Vol] 9.6 mg/dL Normal 7.6-11.0 [facility] Comment on above: Order Comment: Relea se to patient->Automatic Performed By: #### 1 001 #### VANNA BACMAGALYS W ([id number]) [facility] ([employer]) [place] [address] [place] Chloride [Moles/Vol] 104 mmol/L Normal 96-108 [facility] Comment on above: Order Comment: Relea se to patient->Automatic Performed By: #### 1 001 #### VANNA BACMAGALYS W ([id number]) [facility] ([employer]) [place] [address] [place] CO2 [Moles/Vol] 25.0 mmol/L Normal 22.0-29.0 [facility] Comment on above: Order Comment: Relea se to patient->Automatic Performed By: #### 1 001 #### VANNA BACMAGALYS W ([id number]) [facility] ([employer]) [place] [address] [place] Creatinine [Mass/Vol] 0.90 mg/dL Normal 0.70-1.20 [facility] Comment on above: Order Comment: Relea se to patient->Automatic Performed By: #### 1 001 #### VANNA BACCON W ([id number]) [facility] ([employer]) [place] [address] [place] GFR/1.73 sq M.predicted among non-blacks MDRD (S/P/Bld) [Vol rate/Area] mL/min/{1.73_m2} Normal >=60 [facility] Comment on above: Order Comment: Relea se to patient->Automatic Performed By: #### 1 001 #### VANNA Quintana ([id number]) [facility] ([place]) [place] [address] [place] Glucose [Mass/Vol] 84 mg/dL Normal 70-99 [facility] Comment on above: Order Comment: [...] By: #### 1 001 #### VANNA Quintana ([id number]) [facility] ([employer] [address] [place] Potassium [Moles/Vol] 4.0 mmol/L Normal 3.3-5.1 [facility] Comment on above: Order Comment: Relea se to patient->Automatic Performed By: #### 1 001 #### VANNA Quintana ([id number]) [facility] ([facility] [place] [address] [place] Protein [Mass/Vol] 7.2 g/dL Normal 5.9-8.4 [facility] Comment on above: Order Comment: Relea se to patient->Automatic Performed By: #### 1 001 #### VANNA Quintana ([id number]) [facility] ([facility] [place] [address] [place] Sodium [Moles/Vol] 139 mmol/L Normal 133-145 [facility] Comment on above: Order Comment: Relea se to patient->Automatic Performed By: #### 1 001 #### VANNA SAENZ W ([id number]) [facility] ([facility]) [place] [id number] [place] Urea nitrogen [Mass/Vol] 9 mg/dL Normal 4-19 [facility] Comment on above: Order Comment: Relea se to patient->Automatic Performed By: #### 1 001 #### VANNA Quintana ([id number]) [facility] ([facility] [address] Complete Blood CountOrdered By: Susan Hammer on 03-30-2024 Basophils (Bld) [#/Vol] 0.04 10*3/uL [facility] Basophils/100 WBC (Bld) 0.6 % 0.3 - 1.0 % [facility] Eosinophils (Bld) [#/Vol] 0.18 10*3/uL [facility] Eosinophils/100 WBC (Bld) 2.6 % 0.7 - 4.6 % [facility] Erythrocyte distribution width (RBC) [Ratio] 12.3 % 11.9 - 13.5 % [facility] Hematocrit (Bld) [Volume fraction] 46.1 % 40.6 - 50.2 % [facility] Hemoglobin (Bld) [Mass/Vol] 15.5 g/dL 13.5 - 17.0 g/dL [facility] Immature granulocytes/100 WBC (Bld) 0.3 % 0.2 - 0.5 % [facility] Comment on above: Immature Granulocyte Percent includes promyelocytes, myelocytes,and metamyelocytes. IG% > 1.0 indicates a left shift is present. With automated differentials, bands are included in the neutrophil count and not in the Immature Granulocyte Percent. Interpretation and review of laboratory results Abnormal [facility] Lymphocytes (Bld) [#/Vol] 1.52 10*3/uL [facility] Lymphocytes/100 WBC (Bld) 22.1 % 20.0 - 42.9 % [facility] MCH (RBC) [Entitic mass] 29.9 pg 27.3 - 31.2 pg [facility] MCHC (RBC) [Mass/Vol] 33.6 % 32.1 - 34.8 % [facility] MCV (RBC) [Entitic vol] 88.8 fL 82.8 - 92.0 fL [facility] Monocytes (Bld) [#/Vol] 0.67 10*3/uL [facility] Monocytes/100 WBC (Bld) 9.7 % 6.5 - 11.5 % [facility] Neutrophils (Bld) [#/Vol] 4.45 10*3/uL [facility] Neutrophils/100 WBC (Bld) 64.7 % 43.5 - 69.0 % [facility] Nucleated RBC/100 WBC (Bld) [Ratio] 0 % 0.0 - 0.0 % [facility] Platelet mean volume (Bld) [Entitic vol] 9 fL Low 9.6 - 11.8 fL [facility] Comment on above: MPV is platelet rang e and age dependent. Platelets (Bld) [#/Vol] 219 10*3/uL [facility] RBC (Bld) [#/Vol] 5.19 10*6/uL [facility] WBC (Bld) [#/Vol] 6.9 10*3/uL [facility] Comprehensive metabolic pane lOrdered By: Background Lab on 03-30-2024 Albumin BCG dye [Mass/Vol] 4.5 g/dL [facility] ALP [Catalytic activity/Vol] 63 U/L 40 - 129 U/L [facility] ALT With P-5'-P [Catalytic activity/Vol] 13 U/L [facility] - 46 U/L [facility] AST With P-5'-P [Catalytic activity/Vol] 24 U/L [facility] - 37 U/L [facility] Bilirubin [Mass/Vol] 0.5 mg/dL [facility] Calcium [Mass/Vol] 9.6 mg/dL [facility] Chloride [Moles/Vol] 104 mmol/L [facility] Creatinine [Mass/Vol] 0.9 mg/dL Lar [facility] eGFR - PINF [facility] Glucose [Mass/Vol] 84 mg/dL [facility] Comment on above: Criteria for Diagnos is of Diabetes: Fasting Specimen (no caloric intake for at least 8 hours): <100 mg/dL Normal 100-125 mg/dL Increased risk for Diabetes >125 mg/dL Diagnostic for Diabetes Random Glucose (any time of day without regard to last meal): > or = 200 mg/dL plus Classic Symptoms of Diabetes HCO3 (P) [Moles/Vol] 25 [facility] Interpretation and review of laboratory results Normal [facility] Potassium (BldA) [Moles/Vol] 4 mmol/L 3.3 - 5.1 mmol/L [facility] Protein [Mass/Vol] 7.2 g/dL [facility] Sodium [Moles/Vol] 139 mmol/L 133 - 145 mmol/L [facility] Urea nitrogen [Mass/Vol] 9 mg/dL [facility] ERYTHROCYTE SEDIMENTATION RA Courtney 03-30-2024 ESR (Bld) [Velocity] 11 mm/h Normal [facility] Comment on above: Order Comment: Relea se to patient->Automatic Result Comment: Newb orn: 0-2 mm/hr Jennings to puberty: 3-13 mm/hr Less than 50 years old: Male: <15 mm/hr Female: <20 mm/hr Greater than 50 years old: Male: <20 mm/hr Female: <30 mm/hr Performed By: #### 1 001 #### VANNA [employer] ([id number]) [employer]) [address] Erythrocyte Sedimentation Ra teOrdered By: Alicia Jordan on 03-30-2024 ESR Photometric method (Bld) [Velocity] 11 mm/hr [facility] Comment on above: Jennings: 0-2 mm/hr Jennings to puberty: 3-13 mm/hr Less than 50 years old: Male: <15 mm/hr Female: <20 mm/hr Greater than 50 years old: Male: <20 mm/hr Female: <30 mm/hr [facility] URINALYSIS, COMPLETEon 03-30 Bilirubin Ql (U) Negative Normal Negative [facility] Comment on above: Order Comment: Relea se to patient->Automatic Performed By: #### 2 100 #### VANNA [employer] ([id number]) [facility]) [address] Character Clear Normal [facility] Comment on above: Order Comment: Relea se to patient->Automatic Performed By: #### 2 100 #### VANNA BACCON W ([id number]) [facility] ([employer]) [place] [address] [place] Color (U) Light Yellow Normal [facility] Comment on above: Order Comment: Relea se to patient->Automatic Performed By: #### 2 100 #### VANNA BACCON W ([id number]) [facility] ([employer]) [place] [address] [place] Glucose Ql (U) Normal Normal Normal [facility] Comment on above: Order Comment: Relea se to patient->Automatic Performed By: #### 2 100 #### VANNA BACCON W ([id number]) [facility] ([employer]) [place] [address] [place] Ketones Ql (U) Negative Normal Negative [facility] Comment on above: Order Comment: Relea se to patient->Automatic Performed By: #### 2 100 #### VANNA BACCON W ([id number]) [facility] ([facility]) [address] [place], [place] [id number] [place] [address] Leukocyte esterase Test strip Ql (U) Negative Normal Negative [facility] Comment on above: Order Comment: Relea se to patient->Automatic Performed By: #### 2 100 #### VANNA BACCON W ([id number]) [facility] ([employer]) [place] [address] [place] Mucous Small Abnormal Negative [facility] Comment on above: Order Comment: Relea se to patient->Automatic Performed By: #### 2 100 #### VANNA BACCON W ([id number]) [facility] ([employer]) [place] [address] [place] Nitrite Ql (U) Negative Normal Negative [facility] Comment on above: Order Comment: Relea se to patient->Automatic Performed By: #### 2 100 #### VANNA BACCON W ([id number]) [facility] ([employer]) [place] [address] [place] pH (U) 6.5 [pH] Normal 5.0-8.0 [facility] Comment on above: Order Comment: Relea se to patient->Automatic Performed By: #### 2 100 #### VANNA BACCON W ([id number]) [facility] ([facility]) [place] [address] Protein Ql (U) Negative Normal Neg.-Trace [facility] Comment on above: Order Comment: Relea se to patient->Automatic Performed By: #### 2 100 #### VANNA BACCON W ([id number]) [facility] ([facility]) [place] [address] [place] RBC (U) [#/Vol] 1.0 /uL Normal <=20.0 [facility] Comment on above: Order Comment: Relea se to patient->Automatic Performed By: #### 2 100 #### VANNA BACCON W ([id number]) [facility] ([facility]) ONE [address] Renal Epithelial Cells 0.0 /uL Normal <=20.0 [facility] Comment on above: Order Comment: Relea se to patient->Automatic Performed By: #### 2 100 #### VANNA BACCON W ([id number]) [facility] ([facility]) [place] [address] Specific gravity (U) [Rel density] 1.011 Normal Reference Range: 1.005-1.030 [facility] Comment on above: Order Comment: Relea se to patient->Automatic Performed By: #### 2 100 #### VANNA BACCON W ([id number]) [facility] ([facility]) ONE [address] Squamous Epithelial Cells 0.0 /uL Normal <=20.0 [facility] Comment on above: Order Comment: Relea se to patient->Automatic Performed By: #### 2 100 #### VANNA BACCON W ([id number]) [facility] ([facility]) [place] [address] [place] Transitional Epithelial Cells 0.0 /uL Normal <=20.0 [facility] Comment on above: Order Comment: Relea se to patient->Automatic Performed By: #### 2 100 #### VANNA BACCON W ([id number]) [facility] ([employer]) [address] Urobilinogen Normal Normal Normal [facility] Comment on above: Order Comment: Relea se to patient->Automatic Performed By: #### 2 100 #### VANNA Quintana ([id number]) [facility] ([employer]) [address] Volume 12 mL Normal [facility] Comment on above: Order Comment: Relea se to patient->Automatic Performed By: #### 2 100 #### VANNA Quintana ([id number]) [facility] ([employer]) [address] WBC (U) [#/Vol] 2.0 /uL Normal <=20.0 [facility] Comment on above: Order Comment: Relea se to patient->Automatic Performed By: #### 2 100 #### VANNA Quintana ([id number]) [facility] ([employer]) [address] Urinalysis, completeOrdered By: Evan Geller on 03-30-2024 Bilirubin Ql (U) Negative Negative [facility] Character Clear [facility] Color (U) Light Yellow [facility] Epithelial cells.non-squamous Auto Ql (U) 0 /uL [facility] - 20.0 /uL [facility] Epithelial cells.renal Computer assisted Ql (U) 0 /uL [facility] - 20.0 /uL [facility] Epithelial cells.squamous Auto Ql (U) 0 /uL NINF - 20.0 /uL [facility] Glucose Auto test strip Ql (U) Normal Normal [facility] Hemoglobin Auto test strip Ql (U) Negative Negative [facility] Interpretation and review of laboratory results Abnormal [facility] Ketones (U) [Mass/Vol] Negative Negative [facility] Leukocyte esterase Auto test strip Ql (U) Negative Negative Yrn/uL [facility] Mucus Auto Ql (U) Small Abnormal Negative [facility] Nitrite Ql (U) Negative Negative [facility] pH (U) 6.5 [pH] 5.0 - 8.0 [facility] Protein (U) [Mass/Vol] Negative Neg.-Trace [facility] RBC Ql (U) 1 /uL NINF - 20.0 /uL [facility] Specific gravity Refractometry automated (U) [Rel density] 1.011 Reference Range: 1.005-1.030 [facility] Specimen volume (U) 12 mL [facility] Urobilinogen (U) [Mass/Vol] Normal Normal mg/dL [facility] WBC Auto Ql (U) 2 /uL NINF - 20.0 /uL [facility] VITAMIN D 1,25 DIHYDROXYon 1 Vitamin D, 1,25-Dihydroxy 31 pg/mL Normal 18-64 [facility] Comment on above: Order Comment: Relea se to patient->Automatic Result Comment: ADDITIONAL INFORMATION This test was developed and its performance characteristics determined by [facility] in a manner consistent with CLIA requirements. This test has not been cleared or approved by the U.S. Food and Drug Administration. Test Performed by: [facility] [place] [address] Assistant Toddler Teacher: Alex Guadarrama Ph.D.; CLIA# [id number] Performed By: #### 2 100 #### VANNA Quintana ([id number]) [facility]) [address] COMPLETE BLOOD COUNT WITH DI FFERENTIALon 03-16-2024 Basophils (Bld) [#/Vol] 0.04 10*3/uL Normal 0.02-0.06 [facility] Comment on above: Order Comment: Relea se to patient->Automatic Performed By: #### 1 001 #### VANNA Quintana ([id number]) [facility]) [address] Basophils/100 WBC (Bld) 0.6 % Normal 0.3-1.0 [facility] Comment on above: Order Comment: Relea se to patient->Automatic Performed By: #### 1 001 #### VANNA SAENZ W ([id number]) [facility] ([facility]) ONE [address] Eosinophils (Bld) [#/Vol] 0.16 10*3/uL Normal 0.04-0.31 [facility] Comment on above: Order Comment: Relea se to patient->Automatic Performed By: #### 1 001 #### VANNA BACCON W ([id number]) [facility] ([facility]) ONE [address] Eosinophils/100 WBC (Bld) 2.2 % Normal 0.7-4.6 [facility] Comment on above: Order Comment: Relea se to patient->Automatic Performed By: #### 1 001 #### VANNA SAENZ W ([id number]) [facility] ([facility]) ONE [address] Erythrocyte distribution width (RBC) [Ratio] 12.4 % Normal 11.9-13.5 [facility] Comment on above: Order Comment: Relea se to patient->Automatic Performed By: #### 1 001 #### VANNA SAENZ W ([id number]) [facility] ([facility]) ONE [address] Hematocrit (Bld) [Volume fraction] 43.8 % Normal 40.6-50.2 [facility] Comment on above: Order Comment: Relea se to patient->Automatic Performed By: #### 1 001 #### VANNA SAENZ W ([id number]) [facility] ([facility]) ONE [address] Hemoglobin (Bld) [Mass/Vol] 15.0 g/dL Normal 13.5-17.0 [facility] Comment on above: Order Comment: Relea se to patient->Automatic Performed By: #### 1 001 #### VANNA BACCON W ([id number]) [facility] ([facility]) ONE [address] Immature granulocytes/100 WBC (Bld) 0.3 % Normal 0.2-0.5 [facility] Comment on above: Order Comment: Relea se to patient->Automatic Result Comment: Jillian ture Granulocyte Percent includes promyelocytes, myelocytes,and metamyelocytes. IG% > 1.0 indicates a left shift is present. With automated differentials, bands are included in the neutrophil count and not in the Immature Granulocyte Percent. Performed By: #### 1 001 #### VANNA Quintana ([id number]) [employer] ([facility]) ONE [address] Lymphocytes (Bld) [#/Vol] 1.59 10*3/uL Normal 1.39-2.72 [facility] Comment on above: Order Comment: Relea se to patient->Automatic Performed By: #### 1 001 #### VANNA Quintana ([id number]) [facility] ([facility]) ONE [address] Lymphocytes/100 WBC (Bld) 22.1 % Normal 20.0-42.9 [facility] Comment on above: Order Comment: Relea se to patient->Automatic Performed By: #### 1 001 #### VANNA SAENZ W ([id number]) [facility] ([facility]) ONE [address] MCH (RBC) [Entitic mass] 30.4 pg Normal 27.3-31.2 [facility] Comment on above: Order Comment: Relea se to patient->Automatic Performed By: #### 1 001 #### VANNA SAENZ W ([id number]) [facility] [employer]) ONE [address] MCHC 34.2 % Normal 32.1-34.8 [facility] Comment on above: Order Comment: Relea se to patient->Automatic Performed By: #### 1 001 #### VANNA SAENZ W ([id number]) [facility] ([facility]) ONE [address] MCV (RBC) [Entitic vol] 88.8 fL Normal 82.8-92.0 [facility] Comment on above: Order Comment: Relea se to patient->Automatic Performed By: #### 1 001 #### VANNA SAENZ W ([id number]) [employer] ([facility]) [place] [address] Monocytes (Bld) [#/Vol] 0.49 10*3/uL Normal 0.38-0.83 [facility] Comment on above: Order Comment: Relea se to patient->Automatic Performed By: #### 1 001 #### VANNA SAENZ W ([id number]) [facility] ([facility]) [place] [address] Monocytes/100 WBC (Bld) 6.8 % Normal 6.5-11.5 [facility] Comment on above: Order Comment: Relea se to patient->Automatic Performed By: #### 1 001 #### VANNA WOOCON W ([id number]) [facility] ([facility]) [place] [address] Neutrophils (Bld) [#/Vol] 4.90 10*3/uL Normal 2.07-6.00 [facility] Comment on above: Order Comment: Relea se to patient->Automatic Performed By: #### 1 001 #### VANNA SAENZ W ([id number]) [facility] ([facility]) [place] [address] Neutrophils/100 WBC (Bld) 68.0 % Normal 43.5-69.0 [facility] Comment on above: Order Comment: Relea se to patient->Automatic Performed By: #### 1 001 #### VANNA BACCON W ([id number]) [facility] ([facility]) [address] [place] Nucleated RBC/100 WBC (Bld) [Ratio] 0.0 % Normal 0.0-0.0 [facility] Comment on above: Order Comment: Relea se to patient->Automatic Performed By: #### 1 001 #### VANNA BACCON W ([id number]) [facility] ([facility]) [address] [place] Platelet mean volume (Bld) [Entitic vol] 8.9 fL Low 9.6-11.8 [facility] Comment on above: Order Comment: Relea se to patient->Automatic Result Comment: MPV is platelet range and age dependent. Performed By: #### 1 001 #### VANNA SAENZ W ([id number]) [facility] ([facility]) [place], [place] [id number] [place] [address] Platelets (Bld) [#/Vol] 212 10*3/uL Normal 150-400 [facility] Comment on above: Order Comment: Relea se to patient->Automatic Performed By: #### 1 001 #### VANNA BACCON W ([id number]) [facility] ([facility]) [place] [id number] [place] [address] RBC 4.93 10E12/L Normal 4.59-5.58 [facility] Comment on above: Order Comment: Relea se to patient->Automatic Performed By: #### 1 001 #### VANNA BACMAGALYS W ([id number]) [facility] ([facility]) ONE [address] WBC (Bld) [#/Vol] 7.2 10*3/uL Normal 4.5-9.6 [facility] Comment on above: Order Comment: Relea se to patient->Automatic Performed By: #### 1 001 #### VANNA SAENZ W ([id number]) [facility] ([facility]) [address] COMPREHENSIVE METABOLIC PANE Ravi 03-16-2024 Albumin [Mass/Vol] 4.6 g/dL Normal 3.5-5.0 [facility] Comment on above: Order Comment: Relea se to patient->Automatic Result Comment: Veri fied By: [id number] Performed By: #### 2 100 #### VANNA SAENZ W ([id number]) [facility] ([facility]) [place] [address] [place] ALP [Catalytic activity/Vol] 58 U/L Normal 40-129 [facility] Comment on above: Order Comment: Relea se to patient->Automatic Result Comment: Veri fied By: [id number] Performed By: #### 2 100 #### VANNA BACCON W ([id number]) [facility] ([facility]) [place] [address] [place] ALT [Catalytic activity/Vol] 14 U/L Normal <=46 [facility] Comment on above: Order Comment: Relea se to patient->Automatic Result Comment: Veri fied By: [id number] Performed By: #### 2 100 #### VANNA SAENZ W ([id number]) [facility] ([facility]) [place] [address] [place] AST [Catalytic activity/Vol] 21 U/L Normal <=37 [facility] Comment on above: Order Comment: Relea se to patient->Automatic Result Comment: Veri fied By: [id number] Performed By: #### 2 100 #### VANNA BACCON W ([id number]) [facility] ([facility]) [place] [address] [place] BILI,TOTAL 0.4 MG/DL Normal <=1.0 [facility] Comment on above: Order Comment: Relea se to patient->Automatic Result Comment: Veri fied By: [id number] Performed By: #### 2 100 #### VANNA BACCON W ([id number]) [facility] ([employer]) [place] [address] [place] Calcium [Mass/Vol] 9.6 mg/dL Normal 7.6-11.0 [facility] Comment on above: Order Comment: Relea se to patient->Automatic Result Comment: Veri fied By: [id number] Performed By: #### 2 100 #### VANNA BACCON W ([id number]) [facility] ([facility]) [place] [address] [place] Chloride [Moles/Vol] 105 mmol/L Normal 96-108 [facility] Comment on above: Order Comment: Relea se to patient->Automatic Result Comment: Veri fied By: [id number] Performed By: #### 2 100 #### VANNA BACCON W ([id number]) [facility] ([facility]) [place] [address] [place] CO2 [Moles/Vol] 22.6 mmol/L Normal 22.0-29.0 [facility] Comment on above: Order Comment: Relea se to patient->Automatic Result Comment: Veri fied By: [id number] Performed By: #### 2 100 #### VANNA Quintana ([id number]) [facility] ([facility]) [place] [address] [place] Creatinine [Mass/Vol] 0.89 mg/dL Normal 0.70-1.20 [facility] Comment on above: Order Comment: Relea se to patient->Automatic Result Comment: Veri fied By: [id number] Performed By: #### 2 100 #### VANNA Quintana ([id number]) [facility] ([facility]) [place] [address] [place] GFR/1.73 sq M.predicted among non-blacks MDRD (S/P/Bld) [Vol rate/Area] mL/min/{1.73_m2} Normal >=60 [facility] Comment on above: Order Comment: Relea se to patient->Automatic Performed By: #### 2 100 #### VANNA Quintana ([id number]) [facility] ([facility]) [place] [address] [place] Glucose [Mass/Vol] 104 mg/dL High 70-99 [facility] Comment on above: Order Comment: [...] plus Classic Symptoms of Diabetes Verified By: [id number] Performed By: #### 2 100 #### VANNA Quintana ([id number]) [facility] ([facility]) [place] [address] [place] Potassium [Moles/Vol] 3.8 mmol/L Normal 3.3-5.1 [facility] Comment on above: Order Comment: Relea se to patient->Automatic Result Comment: Veri fied By: [id number] Performed By: #### 2 100 #### VANNA Quintana ([id number]) [facility] ([facility]) [place] [address] [place] Protein [Mass/Vol] 7.1 g/dL Normal 5.9-8.4 [facility] Comment on above: Order Comment: Relea se to patient->Automatic Result Comment: Veri fied By: [id number] Performed By: #### 2 100 #### VANNA Quintana ([id number]) [facility] ([facility]) [address] Sodium [Moles/Vol] 139 mmol/L Normal 133-145 [facility] Comment on above: Order Comment: Relea se to patient->Automatic Result Comment: Veri fied By: [id number] Performed By: #### 2 100 #### VANNA Quintana ([id number]) [facility] ([facility]) [address] Urea nitrogen [Mass/Vol] 9 mg/dL Normal 4-19 [facility] Comment on above: Order Comment: Relea se to patient->Automatic Result Comment: Veri fied By: [id number] Performed By: #### 2 100 #### VANNA Quintana ([id number]) [facility] ([facility]) [address] Complete Blood CountOrdered By: Nydia Shi on 03-16-2024 Basophils (Bld) [#/Vol] 0.04 10*3/uL [facility] Basophils/100 WBC (Bld) 0.6 % 0.3 - 1.0 % [facility] Eosinophils (Bld) [#/Vol] 0.16 10*3/uL [facility] Eosinophils/100 WBC (Bld) 2.2 % 0.7 - 4.6 % [facility] Erythrocyte distribution width (RBC) [Ratio] 12.4 % 11.9 - 13.5 % [facility] Hematocrit (Bld) [Volume fraction] 43.8 % 40.6 - 50.2 % [facility] Hemoglobin (Bld) [Mass/Vol] 15 g/dL 13.5 - 17.0 g/dL [facility] Immature granulocytes/100 WBC (Bld) 0.3 % 0.2 - 0.5 % [facility] Comment on above: Immature Granulocyte Percent includes promyelocytes, myelocytes,and metamyelocytes. IG% > 1.0 indicates a left shift is present. With automated differentials, bands are included in the neutrophil count and not in the Immature Granulocyte Percent. Interpretation and review of laboratory results Abnormal [facility] Lymphocytes (Bld) [#/Vol] 1.59 10*3/uL [facility] Lymphocytes/100 WBC (Bld) 22.1 % 20.0 - 42.9 % [facility] MCH (RBC) [Entitic mass] 30.4 pg 27.3 - 31.2 pg [facility] MCHC (RBC) [Mass/Vol] 34.2 % 32.1 - 34.8 % [facility] MCV (RBC) [Entitic vol] 88.8 fL 82.8 - 92.0 fL [facility] Monocytes (Bld) [#/Vol] 0.49 10*3/uL [facility] Monocytes/100 WBC (Bld) 6.8 % 6.5 - 11.5 % [facility] Neutrophils (Bld) [#/Vol] 4.9 10*3/uL [facility] Neutrophils/100 WBC (Bld) 68 % 43.5 - 69.0 % [facility] Nucleated RBC/100 WBC (Bld) [Ratio] 0 % 0.0 - 0.0 % [facility] Platelet mean volume (Bld) [Entitic vol] 8.9 fL Low 9.6 - 11.8 fL [facility] Comment on above: MPV is platelet rang e and age dependent. Platelets (Bld) [#/Vol] 212 10*3/uL [facility] RBC (Bld) [#/Vol] 4.93 10*6/uL [facility] WBC (Bld) [#/Vol] 7.2 10*3/uL [facility] Comprehensive metabolic pane lOrdered By: Background Lab on 03-16-2024 Albumin BCG dye [Mass/Vol] 4.6 g/dL [facility] Comment on above: Verified By: [id number] ALP [Catalytic activity/Vol] 58 U/L 40 - 129 U/L [facility] Comment on above: Verified By: [id number] ALT With P-5'-P [Catalytic activity/Vol] 14 U/L [facility] - 46 U/L [facility] Comment on above: Verified By: [id number] AST With P-5'-P [Catalytic activity/Vol] 21 U/L [facility] - 37 U/L [facility] Comment on above: Verified By: [id number] Bilirubin [Mass/Vol] 0.4 mg/dL [facility] Comment on above: Verified By: [id number] Calcium [Mass/Vol] 9.6 mg/dL [facility] Comment on above: Verified By: [id number] Chloride [Moles/Vol] 105 mmol/L [facility] Comment on above: Verified By: [id number] Creatinine [Mass/Vol] 0.89 mg/dL [facility] Comment on above: Verified By: [id number] eGFR - PINF [facility] Glucose [Mass/Vol] 104 mg/dL High [facility] Comment on above: Criteria for Diagnos is of Diabetes: Fasting Specimen (no caloric intake for at least 8 hours): <100 mg/dL Normal 100-125 mg/dL Increased risk for Diabetes >125 mg/dL Diagnostic for Diabetes Random Glucose (any time of day without regard to last meal): > or = 200 mg/dL plus Classic Symptoms of Diabetes Verified By: [id number] HCO3 (P) [Moles/Vol] 22.6 [facility] Comment on above: Verified By: [id number] Interpretation and review of laboratory results Abnormal [facility] Potassium (BldA) [Moles/Vol] 3.8 mmol/L 3.3 - 5.1 mmol/L [facility] Comment on above: Verified By: [id number] Protein [Mass/Vol] 7.1 g/dL [facility] Comment on above: Verified By: [id number] Sodium [Moles/Vol] 139 mmol/L 133 - 145 mmol/L [facility] Comment on above: Verified By: [id number] Urea nitrogen [Mass/Vol] 9 mg/dL [facility] Comment on above: Verified By: [id number] [facility] ERYTHROCYTE SEDIMENTATION RA Courtney 03-16-2024 ESR (Bld) [Velocity] 8 mm/h Normal [facility] Comment on above: Order Comment: Relea se to patient->Automatic Result Comment: Newb orn: 0-2 mm/hr Jennings to puberty: 3-13 mm/hr Less than 50 years old: Male: <15 mm/hr Female: <20 mm/hr Greater than 50 years old: Male: <20 mm/hr Female: <30 mm/hr Performed By: #### 2 926 #### VANNA Quintana ([id number]) [facility] ([employer]) [place] [address] [place] Erythrocyte Sedimentation Ra teOrdered By: Cesario Pedro on 03-16-2024 ESR Photometric method (Bld) [Velocity] 8 mm/hr [facility] Comment on above: : 0-2 mm/hr Jennings to puberty: 3-13 mm/hr Less than 50 years old: Male: <15 mm/hr Female: <20 mm/hr Greater than 50 years old: Male: <20 mm/hr Female: <30 mm/hr [facility] URINALYSIS, COMPLETEon 03-16 Bilirubin Ql (U) Negative Normal Negative [facility] Comment on above: Order Comment: Relea se to patient->Automatic Performed By: #### 1 001 #### VANNA Quintana ([id number]) [facility] ([employer]) [place] [address] [place] Character Clear Normal [facility] Comment on above: Order Comment: Relea se to patient->Automatic Performed By: #### 1 001 #### VANNA Quintana ([id number]) [facility] [employer]) [place] [address] [place] Color (U) Colorless Normal [facility] Comment on above: Order Comment: Relea se to patient->Automatic Performed By: #### 1 001 #### VANNA Quintana ([id number]) [facility] ([employer]) [place] [address] [place] Glucose Ql (U) Normal Normal Normal [facility] Comment on above: Order Comment: Relea se to patient->Automatic Performed By: #### 1 001 #### VANNA BACCON W ([id number]) [facility] ([facility]AKER) [place] [address] [place] Ketones Ql (U) Negative Normal Negative [facility] Comment on above: Order Comment: Relea se to patient->Automatic Performed By: #### 1 001 #### VANNA BACCON W ([id number]) [facility] ([facility]) [place] [address] [place] Leukocyte esterase Test strip Ql (U) Negative Normal Negative [facility] Comment on above: Order Comment: Relea se to patient->Automatic Performed By: #### 1 001 #### VANNA BACCON W ([id number]) [facility] (BEAK[facility]) [place] [address] [place] Nitrite Ql (U) Negative Normal Negative [facility] Comment on above: Order Comment: Relea se to patient->Automatic Performed By: #### 1 001 #### VANNA BACCON W ([id number]) [facility] ([facility]) [address] [place], [place] [id number] [place] [address] pH (U) 6.0 [pH] Normal 5.0-8.0 [facility] Comment on above: Order Comment: Relea se to patient->Automatic Performed By: #### 1 001 #### VANNA BACCON W ([id number]) [facility] (BEAK[facility]) [place] [address] [place] Protein Ql (U) Negative Normal Neg.-Trace [facility] Comment on above: Order Comment: Relea se to patient->Automatic Performed By: #### 1 001 #### VANNA BACCON W ([id number]) [facility] (BEAK[facility]) [place] [address] [place] RBC (U) [#/Vol] 1.0 /uL Normal <=20.0 [facility] Comment on above: Order Comment: Relea se to patient->Automatic Performed By: #### 1 001 #### VANNA BACCON W ([id number]) [facility] ([facility]AK[facility]) [place] [address] [place] Renal Epithelial Cells 0.0 /uL Normal <=20.0 [facility] Comment on above: Order Comment: Relea se to patient->Automatic Performed By: #### 1 001 #### VANNA BACCON W ([id number]) [facility] ([facility]) [place] [address] [place] Specific gravity (U) [Rel density] 1.004 Low Reference Range: 1.005-1.030 [facility] Comment on above: Order Comment: Relea se to patient->Automatic Performed By: #### 1 001 #### VANNA BACCON W ([id number]) [facility] ([facility]) [place] [address] [place] Squamous Epithelial Cells 0.0 /uL Normal <=20.0 [facility] Comment on above: Order Comment: Relea se to patient->Automatic Performed By: #### 1 001 #### VANNA BACCON W ([id number]) [facility] ([facility]) [place] [address] [place] Transitional Epithelial Cells 0.0 /uL Normal <=20.0 [facility] Comment on above: Order Comment: Relea se to patient->Automatic Performed By: #### 1 001 #### VANNA BACCON W ([id number]) [facility] ([facility]) [place] [address] [place] Urobilinogen Normal Normal Normal [facility] Comment on above: Order Comment: Relea se to patient->Automatic Performed By: #### 1 001 #### VANNA BACCON W ([id number]) [facility] ([facility]) [place] [address] [place] Volume 12 mL Normal [facility] Comment on above: Order Comment: Relea se to patient->Automatic Performed By: #### 1 001 #### VANNA BACCON W ([id number]) [facility] ([facility]) [place] [address] [place] WBC (U) [#/Vol] 0.0 /uL Normal <=20.0 [facility] Comment on above: Order Comment: Relea se to patient->Automatic Performed By: #### 1 001 #### VANNA BACCON W ([id number]) [facility] ([employer]) [address] Urinalysis, completeOrdered By: Jose Gamez on 03-16-2024 Bilirubin Ql (U) Negative Negative [facility] Character Clear [facility] Color (U) Colorless [facility] Epithelial cells.non-squamous Auto Ql (U) 0 /uL NINF - 20.0 /uL [facility] Epithelial cells.renal Computer assisted Ql (U) 0 /uL NINF - 20.0 /uL [facility] Epithelial cells.squamous Auto Ql (U) 0 /uL NINF - 20.0 /uL [facility] Glucose Auto test strip Ql (U) Normal Normal [facility] Hemoglobin Auto test strip Ql (U) Negative Negative [facility] Interpretation and review of laboratory results Abnormal [facility] Ketones (U) [Mass/Vol] Negative Negative [facility] Leukocyte esterase Auto test strip Ql (U) Negative Negative Yrn/uL [facility] Nitrite Ql (U) Negative Negative [facility] pH (U) 6.0 [pH] 5.0 - 8.0 [facility] Protein (U) [Mass/Vol] Negative Neg.-Trace [facility] RBC Ql (U) 1 /uL NINF - 20.0 /uL [facility] Specific gravity Refractometry automated (U) [Rel density] 1.004 Low Reference Range: 1.005-1.030 [facility] Specimen volume (U) 12 mL [facility] Urobilinogen (U) [Mass/Vol] Normal Normal mg/dL [facility] WBC Auto Ql (U) 0 /uL NINF - 20.0 /uL [facility] VITAMIN D 1,25 DIHYDROXYon 0 03-16-2024 Vitamin D, 1,25-Dihydroxy 50 pg/mL Normal 18-64 [facility] Comment on above: Order Comment: Relea se to patient->Automatic Result Comment: ADDITIONAL INFORMATION This test was developed and its performance characteristics determined by [facility] in a manner consistent with CLIA requirements. This test has not been cleared or approved by the U.S. Food and Drug Administration. Test Performed by: [facility] - [facility] [address] [place] [address] Assistant Toddler Teacher: Alex Guadarrama Ph.D.; CLIA# [id number] Performed By: #### 1 001 #### VANNA Quintana ([id number]) [facility] [address] Progress Noteon 02-17-2024 Sap Portal Consultant Authentication Interface Message Text Returning patient Mc [...] that time (more content not included)... 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 Please feel free to call should you have any urgent questions or concerns. Should you choose to participate in Get[employer] messaging, please be aware it may take [...] patient was seen by Adult GI at [facility]. A colonoscopy was performed on 01/09/2019 - [...] with di (more content not included)... Normal [facility] Guidance for injection of Sp ine epidural spaceon 11-01-2023 IMPRESSION: 1. Technically successful, fluoroscopic-guided, right elbow steroid injection. 2. Interval reduction of joint pain following injection local anesthetic. This report has been created using voice recognition software [facility] Kyra Parrish MD - 11/01/2023 PROCEDURE: [...] has been created using voice recognition software [facility] Radiology Study observation (narrative) [facility] Guidance for injection of Sp ine epidural spaceOrdered By: Kyra Parrish on 11-01-2023 [facility] Work Phone: QUANTIFERON TB GOLDon 2023 Mitogen minus NIL >9.95 Normal [facility] Comment on above: Order Comment: Relea se to patient->Automatic Performed By: #### 2 100 #### VANNA [employer] ([id number]) [facility]) [address] Quantiferon TB Gold Negative Normal Negative [facility] Comment on above: Order Comment: Relea se to patient->Automatic Performed By: #### 2 100 #### VANNA [employer] ([id number]) [employer]) [address] TB1 minus NIL 0.00 IU/mL Normal -0.50-0.34 [facility] Comment on above: Order Comment: Relea se to patient->Automatic Performed By: #### 2 100 #### VANNA [employer] ([id number]) [facility] ([facility]) [address] TB2 minus NIL 0.02 IU/mL Normal -0.50-0.34 [facility] Comment on above: Order Comment: Relea se to patient->Automatic Performed By: #### 2 100 #### VANNA Quintana ([id number]) [facility] [address] US Abdomen RUQon 02-15-2023 IMPRESSION: Normal right upper quadrant ultrasound This report has been created using voice recognition software [facility] CLINICAL HISTORY: 22 yo male with IBD and elevated liver enzymes, eval liver and gallbladder TECHNIQUE: Sonographic evaluation of the abdominal right upper quadrant was performed. COMPARISON: None. FINDINGS: LIVER: Normal. GALLBLADDER: Normal. CBD: Normal. CBD diameter: 2 mm. PANCREAS: Visualized portions are normal. RIGHT KIDNEY: Normal. Right kidney length: 11.4 cm. [facility] Marie Celis MD - 02/15/2023 CLINICAL HISTORY: 22 yo [...] has been created using voice recognition software [facility] Radiology Study observation (narrative) [facility] US Abdomen RUQOrdered By: Beltran Celis on 02-15-2023 [facility] Work Phone: IR STEROID INJECTIONon 08-31 IMPRESSION: Technically successful, fluoroscopic-guided, left wrist and right elbow steroid injection for pain and inflammation control. This report has been created using voice recognition software [facility] Marie Celis MD - 08/31/2022 PROCEDURE: Fluoroscopically guided intra-articular [...] has been created using voice recognition software [facility] Radiology Study observation (narrative) [facility] IR STEROID INJECTIONOrdered By: Marie Celis on 08-31-2022 [facility] Work Phone: Complete Blood Counton 11-13 Differential Complete Manual [facility] Erythrocyte distribution width (RBC) [Ratio] 12.6 % 0 - 14.4 % [facility] Hematocrit (Bld) [Volume fraction] 46.7 % 41 - 50 % [facility] Hemoglobin (Bld) [Mass/Vol] 16.1 g/dL 13.5 - 16.5 g/dl [facility] Immature granulocytes/100 WBC (Bld) 0.1 % [facility] Comment on above: Immature Granulocyte Percent includes promyelocytes, myelocytes, and metamyelocytes. IG% > 1.0 indicates a left shift is present. With automated differentials, bands are included in the neutrophil count and not in the Immature Granulocyte Percent. MCH (RBC) [Entitic mass] 30.1 pg 26 - 34 pg [facility] MCHC 34.5 % 31 - 37 % [facility] MCV (RBC) [Entitic vol] 87.3 fL 80 - 100 fl [facility] Nucleated RBC/100 WBC (Bld) [Ratio] 0 % -1 - 0 % [facility] Platelet mean volume (Bld) [Entitic vol] 8.5 fL [facility] Comment on above: MPV is platelet range and age dependent Platelets (Bld) [#/Vol] 264 10*3/uL [facility] RBC (Bld) [#/Vol] 5.35 10*6/uL [facility] WBC (Bld) [#/Vol] 7.2 10*3/uL [facility] Comprehensive metabolic pane ravi 11-13-2021 Albumin [Mass/Vol] 4.6 g/dL 3.5 - 5 g/dL [facility] ALP [Catalytic activity/Vol] 86 U/L 40 - 129 U/L [facility] ALT [Catalytic activity/Vol] 12 U/L 0 - 46 U/L [facility] AST [Catalytic activity/Vol] 26 U/L 0 - 37 U/L [facility] Bilirubin [Mass/Vol] 0.3 mg/dL 0 - 1 mg/dL [facility] Calcium [Mass/Vol] 9.4 mg/dL 7.6 - 11 mg/dL [facility] Chloride [Moles/Vol] 102 mmol/L 96 - 10 8 mmol/L [facility] CO2 [Moles/Vol] 24.9 mmol/L 22 - 29 mmol/L [facility] Creatinine [Mass/Vol] 1.04 mg/dL 0.7 - 1.2 mg/dL [facility] Glucose [Mass/Vol] 79 mg/dL 70 - 99 mg/dL [facility] Comment on above: Criteria for Diagnos is of Diabetes: Fasting Specimen (no caloric intake for at least 8 hours): <100 mg/dL Normal 100-125 mg/dL Increased risk for Diabetes >125 mg/dL Diagnostic for Diabetes Random Glucose (any time of day without regard to last meal): > or = 200 mg/dL plus Classic Symptoms of Diabetes Potassium [Moles/Vol] 3.9 mmol/L 3.3 - 5.1 mmol/L [facility] Protein [Mass/Vol] 7.8 g/dL 5.9 - 8.4 g/dL [facility] Sodium [Moles/Vol] 140 mmol/L 133 - 145 mmol/L [facility] Urea nitrogen [Mass/Vol] 9 mg/dL 4 - 19 mg/dL [facility] Release to patient->Automatic [facility] IR JOINT INJECTIONon 022 IMPRESSION: Technically successful, fluoroscopic-guided right elbow steroid injection. Created by resident and approved This report has been created using voice recognition software [facility] Kyra Parrish MD - 11/13/2021 PROCEDURE: [...] has been created using voice recognition software [facility] Radiology Study observation (narrative) [facility] IR JOINT INJECTIONOrdered By : Kyra Parrish on 11-13-2021 [facility] Work Phone: Manual Differentialon 2021 % Eosinophils 2 % 0 - 3 % [facility] % Metamyelocytes 0 % 0 - 0 % [facility] % Monocytes 7 % High 3 - 6 % [facility] % Myelocytes 0 % 0 - 0 % [facility] % Promyelocytes 0 % 0 - 0 % [facility] Absolute Neutrophil No. 4.9 [facility] Atypical Lymphocytes 1 % 0 - 8 % [facility] Band Neutrophil 0 % Low 5 - 11 % [facility] Cell Morphology Normal [facility] Interpretation and review of laboratory results Abnormal [facility] Lymphocytes 22 % Low 24 - 44 % [facility] Segmented Neutrophils 68 % High 35 - 66 % Lar [facility] No Panel Informationon 11-13 Release to patient->Automatic [facility] Vitamin D 25 hydroxyon 11-13 25 [place] Vitamin D 17 ng/mL Low 30 - 100 ng/mL [facility] Comment on above: Reference ranges pro vided by [facility] Laboratory are based on Endocrine Society Guidelines: Level: Characterization <21 ng/mL: Vitamin D deficiency 21-29 ng/mL: Suboptimal Vitamin D status 30-100 ng/mL: Optimal Vitamin D status >100 ng/mL: Potentially toxic Vitamin D effects Interpretation and review of laboratory results Abnormal [facility] Release to patient->Automatic [facility] CNNURSEon 10-21-2021 CNNURSE Nurse Visit (AGFAAUNDREA Brown) [facility] ([id number]) 00 M Date Time Provider Department 10/21/21 9:20 AM NURSE LYNDA WINTERS During your visit today, we recorded the following information about you: Blood pressure 116/68 Nicole Florence MA 10/21/2021 7:16 AM Signed Immunizations were given as ordered. Vaccination information sheet(s) given. Nicole Florence MA Referring Provider: NICK OLSON [[id number]] Allergies As of Date: 10/21/2021 (No Known Allergies) Date Reviewed: 05/22/2020 Reviewed by: Nick Rojo (Assistant Track Coach Advertising Display Rotator) NANCY Olson - Fully Assessed Primary Visit Diagnosis:Encounter for immunization [Z23] Order(s):[employer] COVID-19 VACCINE, AGE 12+ YR ([place]) [88140DIA] Order #: [id number] Prescriptions as of 10/21/2021 - celecoxib (CELEBREX) [...] Vaccination information sheet(s) given. Nicole Florence MA Encounter Status:Closed by NICOLE FLORENCE on 10/21/21 [facility] ([id number]) 00 Date Time Provider Department 06/16/21 NICK OLSON During your visit today, we recorded the following information about you: Nick Olson APRN.CNP 06/16/2021 8:42 AM Signed Dad has COVID. He is feeling very fatigued. COVID test ordered. Nick Olson APRN.CNP Allergies As of Date: 06/16/2021 (No Known Allergies) Date Reviewed: 05/22/2020 Reviewed by: Nick Rojo (Assistant Track Coach Nancy) NANCY Olson - Fully Assessed Reason for Visit: Orders [681] Cmt: COVID test Primary Visit Diagnosis:Exposure to COVID-19 virus [Z20.822] Other Visit Diagnosis:Fatigue, unspecified type [R53.83] Order(s):COVID WITH FLUA+B, ROUTINE [SQCOVFLU] Order #: [id number] FUTURE Prescriptions as of 06/16/2021 - celecoxib [...] Status:Closed by NICK OLSON on 06/16/21 Normal [facility] A PCR Negative Normal [facility] Comment on above: Performed By: #### C OVFLU #### [place] [address] Influenza B PCR Negative Normal [facility] Comment on above: Performed By: #### C OVFLU #### [place] [address] SARS-CoV-2 (COVID-19) RNA CINDY+probe Ql (Unsp spec) UPPER RESPIRATORY TRACT SWAB Normal [facility] Comment on above: Performed By: #### C OVFLU #### [place] [address] SARS-CoV-2 (COVID-19) RNA CINDY+probe Ql (Unsp spec) Positive for COVID19 (SARS CoV2) by RT-PCR or equivalent method. Critically abnormal Negative for COVID19 (SARS CoV2) by RT-PCR or equivalent method. [facility] Comment on above: Result Comment: This test was developed and its performance characteristics determined by [facility]. This test has been authorized by FDA under an Emergency Use Authorization (EUA). This test has been validated in accordance with the FDA's Guidance Document Policy for Diagnostics Testing in Laboratories Certified to Perform High Complexity Testing under CLIA prior to Emergency use Authorization for Coronavirus Disease 2019 during the Public Health Emergency issued on August 26, 2019. Test performed by [facility], [facility], [address] [address]. Performed By: #### C OVFLU #### [facility] [address] [id number] Comprehensive Panelon 2019 Albumin [Mass/Vol] 5.0 g/dL High 3.9-4.9 [facility] Comment on above: Performed By: #### L LP14 #### [place] [address] ALP [Catalytic activity/Vol] 62 U/L Normal 38-113 [facility] Comment on above: Performed By: #### L LP14 #### [place] [address] ALT-SGPT Blood 18 U/L Normal 10-54 [facility] Comment on above: Performed By: #### L LP14 #### [place] [address] Anion gap [Moles/Vol] 11 mmol/L Normal 9-18 [facility] Comment on above: Performed By: #### L LP14 #### [address] [address] AST-SGOT Blood 22 U/L Normal 14-40 [facility] Comment on above: Performed By: #### L LP14 #### [address] [address] Bilirubin Ql (U) 0.4 mg/dL Normal 0.2-1.3 [facility] Comment on above: Performed By: #### L LP14 #### [facility] [address] [place], [place] [address] Calcium [Mass/Vol] 10.2 mg/dL Normal 8.5-10.2 [facility] Comment on above: Performed By: #### L LP14 #### [address] [address] Chloride [Moles/Vol] 100 mmol/L Normal 97-105 [facility] Comment on above: Performed By: #### L LP14 #### [facility] [address] [place], [place] [address] CO2 Blood 25 mmol/L Normal 22-30 [facility] Comment on above: Performed By: #### L LP14 #### [facility] [address] [place], [place] [address] Creatinine [Mass/Vol] 1.13 mg/dL Normal 0.73-1.22 [facility] Comment on above: Performed By: #### L LP14 #### [facility] [address] [place], [place] [address] Glucose [Mass/Vol] 97 mg/dL Normal 74-99 [facility] Comment on above: Result Comment: The [place] Diabetes Association (ADA) provides guidance for cutoff [...] Standards of Medical Care in Diabetes 2016; [place] [employer]. Diabetes Care. 2016;39(Suppl 1). Performed By: #### L LP14 #### [facility] [address] [place], [place] [address] Potassium [Moles/Vol] 4.1 mmol/L Normal 3.7-5.1 [facility] Comment on above: Performed By: #### L LP14 #### [facility] [address] [place], [place] [address] Protein [Mass/Vol] 7.6 g/dL Normal 6.3-8.0 [facility] Comment on above: Performed By: #### L LP14 #### [facility] [address] [place], [place] [address] Sodium [Moles/Vol] 136 mmol/L Normal 136-144 [facility] Comment on above: Performed By: #### L LP14 #### [facility] [address] [place] [address] Urea nitrogen [Mass/Vol] 16 mg/dL Normal 9-24 [facility] Comment on above: Performed By: #### L LP14 #### [facility] [address] [place] [address] Hemogramon 01-11-2020 Erythrocyte distribution width (RBC) [Ratio] 20.7 % High 11.5-15.9 [facility] Comment on above: Performed By: #### L CBC #### [facility] [address] [place] [address] Hematocrit (Bld) [Volume fraction] 45.0 % Normal 42.0-52.0 [facility] Comment on above: Performed By: #### L CBC #### [place] [address] Hemoglobin (Bld) [Mass/Vol] 14.5 g/dL Normal 14.0-18.0 [facility] Comment on above: Performed By: #### L CBC #### [facility] [address] [place] [address] MCH (RBC) [Entitic mass] 24.0 pg Low 27.0-31.0 [facility] Comment on above: Performed By: #### L CBC #### [place] [address] MCHC (RBC) [Mass/Vol] 32.2 % Normal 32.0-36.0 [facility] Comment on above: Performed By: #### L CBC #### [facility] [address] [place] [address] MCV (RBC) [Entitic vol] 74.6 fL Low 80.0-94.0 [facility] Comment on above: Performed By: #### L CBC #### [facility] [address] [place] [address] Platelet mean volume (Bld) [Entitic vol] 10.1 fL Normal 7.1-10.5 [facility] Comment on above: Performed By: #### L CBC #### [facility] [address] [place] [address] Platelets (Bld) [#/Vol] 294 thou/cmm Normal 150-400 [facility] Comment on above: Performed By: #### L CBC #### [facility] [address] [place] [address] RBC (Bld) [#/Vol] 6.03 mil/cmm Normal 4.60-6.20 [facility] Comment on above: Performed By: #### L CBC #### [facility] [address] [place] [address] WBC (Bld) [#/Vol] 6.9 thou/cmm Normal 4.8-10.5 [facility] Comment on above: Performed By: #### L CBC #### [place] [address] MDRD eGFRon 01-11-2020 GFR/1.73 sq M predicted among non-blacks MDRD (S/P/Bld) [Vol rate/Area] mL/min/{1.73_m2} Normal >60mL/min/1 .73m2 [facility] Comment on above: Result Comment: If t he patient is , multiply the result by 1.210. Performed By: #### L GFR #### [place] [address] Sed Rateon 01-11-2020 Sed Rate 2 mm/hr Normal 0-15 [facility] Comment on above: Performed By: #### E SR #### [place] [address] Total 25-OH Vitamin Don - Total 25-OH Vitamin D 41.4 ng/mL Normal 30.0-100.0 [facility] Comment on above: Performed By: #### 2 5VD1 #### [place] [address] Misc. Teston 09-15-2019 Misc. Test Result SEE BELOW Normal [facility] Comment on above: Result Comment: ADA NEUTRALIZING AB NOT DETECTED EER ADALIMUMAB SEE NOTE (NOTE) Access [facility] Enhanced Report using either link below: -Direct access: [email or web address] -Enter Username, Password: [email or web address] Color Username: [email or web address] Password: [email or web address] Performed by [employer], [facility] [place] [address] [email or web address], Erick Mendoza MD, Lab. Director ADALIMUMAB ACTIVITY [...] appropriate if patient is not responding. * AGA recommended target trough concentration for reactive monitoring of patients with active IBD on maintenance therapy is 7.5 ug/mL or greater for adalimumab (Mee PORTILLO et al, Gastroenterology 2017; 153:827-834). The AGA makes no recommendation regarding the use of routine, proactive therapeutic drug monitoring in adults with quiescent IBD treated with anti-TNF agents. Test developed and characteristics determined by [employer]. See Compliance Statement B: [email or web address]/CS Performing Laboratory: Performed By: #### G OX #### [facility] [address] [place] [address] Misc. Teston 09-11-2019 [facility] Order Code ADANEU [facility] Comment on above: Performed By: #### G OX #### [facility] [address] [place] [address] Test Name Adalimumab [facility] Comment on above: Performed By: #### G OX #### [facility] [address] [place] [address] Comprehensive Panelon 2019 ALP [Catalytic activity/Vol] 71 U/L Normal 45-117 [facility] Comment on above: Performed By: #### P 14 #### [facility] [address] [place] [address] Protein [Mass/Vol] 7.5 g/dL Normal 6.4-8.2 [facility] Comment on above: Performed By: #### P 14 #### [facility] [address] [place] [address] Bilirubin [Mass/Vol] 0.4 mg/dL Normal 0.2-1.0 [facility] Comment on above: Result Comment: Use of this assay is not recommended for patients undergoing treatment with eltrombopag due to the potential for falsely elevated results. Performed By: #### P 14 #### [facility] [address] [place] [address] Creatinine [Mass/Vol] 1.07 mg/dL Normal 0.67-1.17 [facility] Comment on above: Result Comment: Use of this assay is not recommended for patients undergoing treatment with phenindione, due to the potential for falsely depressed results. Performed By: #### P 14 #### [facility] [address] [place] [address] ALT [Catalytic activity/Vol] 25 U/L Normal 12-78 [facility] Comment on above: Performed By: #### P 14 #### [facility] [address] [place] [address] AST [Catalytic activity/Vol] 16 U/L Normal 15-37 [facility] Comment on above: Performed By: #### P 14 #### [facility] [address] [place], [place] [address] Anion gap [Moles/Vol] 8 mmol/L Normal 8-16 [facility] Comment on above: Performed By: #### P 14 #### [facility] [address] [place], [place] [address] CO2 [Moles/Vol] 28 mmol/L Normal 21-32 [facility] Comment on above: Performed By: #### P 14 #### [facility] [address] [place], [place] [address] Glucose [Mass/Vol] 80 mg/dL Normal 70-99 [facility] Comment on above: Performed By: #### P 14 #### [facility] [address] [place], [place] [address] Albumin [Mass/Vol] 4.0 g/dL Normal 3.4-5.0 [facility] Comment on above: Performed By: #### P 14 #### [facility] [address] [place], [place] [address] Calcium [Mass/Vol] 9.6 mg/dL Normal 8.5-10.1 [facility] Comment on above: Performed By: #### P 14 #### [facility] [address] [place], [place] [address] Urea nitrogen [Mass/Vol] 16 mg/dL Normal 7-18 [facility] Comment on above: Performed By: #### P 14 #### [facility] [address] [place], [place] [address] Chloride [Moles/Vol] 103 mmol/L Normal 98-107 [facility] Comment on above: Performed By: #### P 14 #### [facility] [address] [place], [place] [address] Potassium [Moles/Vol] 4.2 mmol/L Normal 3.5-5.1 [facility] Comment on above: Performed By: #### P 14 #### [facility] [address] [place], [place] [address] Sodium [Moles/Vol] 135 mmol/L Low 136-145 [facility] Comment on above: Performed By: #### P 14 #### [place] [address] Hemogram/Diffon 08-22-2019 Abs. Baso 0.02 thou/cmm Normal 0.00-0.08 [facility] Comment on above: Performed By: #### L CBCD #### [place] [address] Abs. Ellis 0.59 thou/cmm Normal 0.20-1.00 [facility] Comment on above: Performed By: #### L CBCD #### [place] [address] Abs. Neut (ANC) 4.82 thou/cmm Normal 3.00-5.67 [facility] Comment on above: Performed By: #### L CBCD #### [place] [address] Basophils/100 WBC (Bld) 0.3 % Normal [facility] Comment on above: Performed By: #### L CBCD #### [place] [address] Eosinophils (Bld) [#/Vol] 0.07 thou/cmm Normal 0.00-0.41 [facility] Comment on above: Performed By: #### L CBCD #### [place] [address] Eosinophils/100 WBC (Bld) 0.9 % Normal [facility] Comment on above: Performed By: #### L CBCD #### [place] [address] Erythrocyte distribution width (RBC) [Ratio] 14.2 % Normal 11.5-15.9 [facility] Comment on above: Performed By: #### L CBCD #### [place] [address] Hematocrit (Bld) [Volume fraction] 40.7 % Low 42.0-52.0 [facility] Comment on above: Performed By: #### L CBCD #### [address] [place], [place] [address] Hemoglobin (Bld) [Mass/Vol] 12.8 g/dL Low 14.0-18.0 [facility] Comment on above: Performed By: #### L CBCD #### [facility] [address] [place], [place] [address] Lymphocytes (Bld) [#/Vol] 2.00 thou/cmm Normal 1.50-3.65 [facility] Comment on above: Performed By: #### L CBCD #### [facility] [address] [place], [place] [address] Lymphocytes/100 WBC (Bld) 26.6 % Normal [facility] Comment on above: Performed By: #### L CBCD #### [facility] [address] [place], [place] [address] MCH (RBC) [Entitic mass] 24.5 pg Low 27.0-31.0 [facility] Comment on above: Performed By: #### L CBCD #### [facility] [address] [place] [address] MCHC (RBC) [Mass/Vol] 31.4 % Low 32.0-36.0 [facility] Comment on above: Performed By: #### L CBCD #### [address] [address] MCV (RBC) [Entitic vol] 78.0 fL Low 80.0-94.0 [facility] Comment on above: Performed By: #### L CBCD #### [address] [address] Monocytes/100 WBC (Bld) 7.9 % Normal [facility] Comment on above: Performed By: #### L CBCD #### [facility] [address] [place], [place] [address] Platelet mean volume (Bld) [Entitic vol] 9.3 fL Normal 7.1-10.5 [facility] Comment on above: Performed By: #### L CBCD #### [address] [address] Platelets (Bld) [#/Vol] 381 thou/cmm Normal 150-400 [facility] Comment on above: Performed By: #### L CBCD #### [facility] [address] [place], [place] [address] RBC (Bld) [#/Vol] 5.22 mil/cmm Normal 4.60-6.20 [facility] Comment on above: Performed By: #### L CBCD #### [facility] [address] [place], [place] [address] Seg Neutrophil 64.3 % Normal [facility] Comment on above: Performed By: #### L CBCD #### [facility] [address] [place], [place] [address] WBC (Bld) [#/Vol] 7.5 thou/cmm Normal 4.8-10.5 [facility] Comment on above: Performed By: #### L CBCD #### [address] [address] MDRD GFRon 08-22-2019 GFR/1.73 sq M predicted among non-blacks MDRD (S/P/Bld) [Vol rate/Area] mL/min/{1.73_m2} Normal >60mL/min/1 .73m2 [facility] Comment on above: Result Comment: If t he patient is , multiply the result by 1.210. Performed By: #### G FR #### [facility] [address] [place], [place] [address] CBC and Differentialon 06-03 Abs Baso <0.03 Normal <0.11 [facility] Comment on above: Performed By: #### C BCDIF, CMP ####[facility] Cfxecgpdch9020 [address] Abs Ellis 1.02 k/uL High <0.87 [facility] Comment on above: Performed By: #### C BCBRYNF, CMP ####[facility] Cmoyhnpykv8928 [address] Abs Neut 4.88 k/uL Normal 1.45-7.50 [facility] Comment on above: Performed By: #### C BCDIF, CMP ####[facility] [address] [place] [address] Basophils/100 WBC Auto (Bld) 0.2 % Normal [facility] Comment on above: Performed By: #### C BCDIF, CMP ####[facility] [address] [place] [address] Eosinophils 0.11 10*3/uL Normal <0.46 [facility] Comment on above: Performed By: #### C BCDIF, CMP ####[place] [address] Eosinophils/100 leukocytes 1.3 % Normal [facility] Comment on above: Performed By: #### C BCDIF, CMP ####[place] [address] Erythrocyte distribution width Auto Ratio (RBC) 12.1 % Normal 11.5-15.0 [facility] Comment on above: Performed By: #### C BCDIF, CMP ####[place] [address] Erythrocytes (RBC) 5.48 10*6/uL Normal 4.20-6.00 [facility] Comment on above: Performed By: #### C BCDIF, CMP ####[place] [address] Hematocrit (HCT) 46.0 % Normal 39.0-51.0 [facility] Comment on above: Performed By: #### C BCDIF, CMP ####[place] [address] Hemoglobin mass conc (Bld) 14.9 g/dL Normal 13.0-17.0 [facility] Comment on above: Performed By: #### C BCDIF, CMP ####[place] [address] Lymphocytes 2.66 10*3/uL Normal 1.00-4.00 [facility] Comment on above: Performed By: #### C BCDIF, CMP ####[place] [address] Lymphocytes/100 leukocytes 30.6 % Normal [facility] Comment on above: Performed By: #### C BCDIF, CMP ####[facility] [address] [place] [address] MCH 27.2 pG Normal 26.0-34.0 [facility] Comment on above: Performed By: #### C BCDIF, CMP ####[facility] [address] [place] [address] MCHC mass conc (RBC) 32.4 g/dL Normal 30.5-36.0 [facility] Comment on above: Performed By: #### C BCDIF, CMP ####[facility] [address] [place] [address] MCV 83.9 fL Normal 80.0-100.0 [facility] Comment on above: Performed By: #### C BCDIF, CMP ####[place] [address] Monocytes/100 leukocytes 11.7 % Normal [facility] Comment on above: Performed By: #### C BCDIF, CMP ####[place] [address] Neutrophils/100 WBC Auto (Bld) 56.2 % Normal [facility] Comment on above: Performed By: #### C BCDIF, CMP ####[place] [address] Platelet mean volume (PMV) 8.4 fL Low 9.0-12.7 [facility] Comment on above: Performed By: #### C BCDIF, CMP ####[place] [address] Platelets 289 10*3/uL Normal 150-400 [facility] Comment on above: Performed By: #### C BCDIF, CMP ####[place] [address] WBC (Leukocytes) 8.69 10*3/uL Normal 3.70-11.00 [facility] Comment on above: Performed By: #### C BCDIF, CMP ####[place] [address] Comp Metabolic Panelon 06-03 Alanine aminotransferase (ALT) 40 U/L Normal 5-50 [facility] Comment on above: Performed By: #### C BCDIF, CMP ####[facility] [address] [place] [address] Albumin 4.5 g/dL Normal 3.5-5.0 [facility] Comment on above: Performed By: #### C BCDIF, CMP ####[facility] [address] [place] [address] Alkaline phosphatase (ALP) 101 U/L Normal 50-350 [facility] Comment on above: Performed By: #### C BCDIF, CMP ####[facility] [address] [place] [address] Anion gap 12 mmol/L Normal 0-15 [facility] Comment on above: Performed By: #### C BCDIF, CMP ####[place] [address] Aspartate aminotransferase (AST) 25 U/L Normal 7-40 [facility] Comment on above: Performed By: #### C BCDIF, CMP ####[place] [address] Bilirubin (total) 0.4 mg/dL Normal 0.0-1.5 [facility] Comment on above: Performed By: #### C BCDIF, CMP ####[facility] [address] [place] [address] Calcium 9.9 mg/dL Normal 8.5-10.5 [facility] Comment on above: Performed By: #### C BCDIF, CMP ####[place] [address] Chloride 102 mmol/L Normal 98-110 [facility] Comment on above: Performed By: #### C BCDIF, CMP ####[facility] [address] [place] [address] CO2 27 mmol/L Normal 23-32 [facility] Comment on above: Performed By: #### C BCDIF, CMP ####[place] [address] Creatinine 1.12 mg/dL Normal 0.40-1.30 [facility] Comment on above: Performed By: #### C BCDIF, CMP ####[facility] [address] [place] [address] eGFR (non-black) 0.63 mL/min/{1.73_m2} Normal [facility] Comment on above: Result Comment: eGFR (Estimated [...] interpretation. Performed By: #### C BCDIF, CMP ####[facility] [address] [place] [address] Glucose mass conc 87 mg/dL Normal 65-100 [facility] Comment on above: Performed By: #### C BCDIF, CMP ####[facility] [address] [place] [address] Potassium molar conc 4.1 mmol/L Normal 3.5-5.0 [facility] Comment on above: Performed By: #### C BCDIF, CMP ####[facility] [address] [place] [address] Protein 8.4 g/dL Normal 6.0-8.4 [facility] Comment on above: Performed By: #### C BCDIF, CMP ####[place] [address] Sodium 141 mmol/L Normal 135-146 [facility] Comment on above: Performed By: #### C BCDIF, CMP ####[place] [address] Urea nitrogen 13 mg/dL Normal 5-20 [facility] Comment on above: Performed By: #### C BCDIF, CMP ####[facility] [address] [place] [address] ED NOTEon 06-03-2017 ED NOTE HNO ID: [id number] Author: Sabrina (Rn) BALTA Salinas Service: (none) Author Type: Registered Nurse Type: ED Notes Filed: 06/03/2017 12:16 AM Note Text: Pt presents to ED with complaints of rectal bleeding x 4 days. [facility] ED PROV NOTEon 06-03-2017 ED PROV NOTE HNO ID: [id number] thor: Paulo Singleton) Andrae: (none)Author Type: Physician AssistantType: ED Provider NotesFiled: 06/03/2017 12:49 AMNote Text: ----Attestation signed by Renee Lund DO at 06/03/2017 1:25 AMAttending NoteI have discussed the case with the PA and agree with their assessment and plan.Other additions or changes: NoneSignature: LUDMILA Taylorate: 06/03/2017Time: 1:25 AM -ED Provider NotePatient Name: Mc RiceMRN: [id number] DATE: 06/03/17HistoryPatient presents with:Rectal BleedingHPI Comments: 16-year-old [...] urinary symptoms.History provided by: Patient and parentLanguage manager reliability used: NoPAST MEDICAL HISTORYDiagnosis Date- Contusion of [...] 98.8 Resp 16 Wt 250 lb (113.4kg) NdK254%Physical ExamConstitutional: He is oriented to person, place, [...] 8.4 (*) 9.0 - 12.7 fL Abs Ellis 1.02 (*) <0.87 k/uL All other components [...] concerns.Condition at time of disposition: stableSIGNATURE: Enrike Murray) Syxlaooy55/07/17 0041Bcharo Singleton) Bzbgvuqk47/07/17 0049Renee Lund DO06/03/17 0125 Normal [facility] Vital Signs Date Time Vital Sign Value Performing Clinician Shae flowers 04-18-2025 23:08-0400 Body temperature 98.3 [degF] Nick Olson NP-C Work Phone: [facility] 04-18-2025 23:08-0400 Diastolic blood pressure 70 mm[Hg] Nick Olson NP-C Work Phone: [facility] 04-18-2025 23:08-0400 Heart rate 88 /min Nick Olson NP-C Work Phone: [facility] 04-18-2025 23:08-0400 Respiratory rate 16 /min Nick Olson NP-C Work Phone: [facility] 04-18-2025 23:08-0400 SaO2% (BldA) [Mass fraction] 98 % Nick Trill MANAGER HOUSE-C Work Phone: [facility] 04-18-2025 23:08-0400 Systolic blood pressure 120 mm[Hg] Nick Trill MANAGER HOU[employer]-C Work Phone: [facility] 04-18-2025 18:43-0400 Body height 185.42 cm Nick Trill MANAGER [employer] Work Phone: [facility] 04-18-2025 18:43-0400 Body mass index (BMI) [Ratio] 23.4 kg/m2 Nick Trill MANAGER [employer] Work Phone: [facility] 04-18-2025 18:43-0400 Body weight 80.6 kg Nick Trill MANAGER [employer] Work Phone: [facility] 10-16-2024 12:45-0400 Body temperature 98.2 [degF] Nick Trill MANAGER HOU[employer]-C Work Phone: [facility] 10-16-2024 12:45-0400 Diastolic blood pressure 61 mm[Hg] Nick Trill MANAGER HOU[employer]-C Work Phone: [facility] 10-16-2024 12:45-0400 Heart rate 61 /min Nick Trill MANAGER HOU[employer]-C Work Phone: [facility] 10-16-2024 12:45-0400 Respiratory rate 14 /min Nick Trill MANAGER [employer] Work Phone: [facility] 10-16-2024 12:45-0400 SaO2% (BldA) [Mass fraction] 96 % Nick Trill MANAGER HOU[employer]-C Work Phone: [facility] 10-16-2024 12:45-0400 Systolic blood pressure 103 mm[Hg] Nick Trill MANAGER HOU[employer]-C Work Phone: [facility] 10-16-2024 10:45-0400 Body height 185.42 cm Nick Trill MANAGER [employer]-C Work Phone: [facility] 10-16-2024 10:45-0400 Body mass index (BMI) [Ratio] 22.6 kg/m2 Nick Olson MANAGER HOU[employer]-C Work Phone: [facility] 10-16-2024 10:45-0400 Body weight 78 kg Nick Wesley MANAGER [employer]-C Work Phone: [facility] 10-12-2024 12:20-0400 Body temperature 97.3 [degF] Dora Kate DO Work Phone: [facility] 10-12-2024 12:20-0400 Diastolic blood pressure 70 mm[Hg] Dora Evertale DO Work Phone: [facility] 10-12-2024 12:20-0400 Heart rate 72 /min Dora Kate DO Work Phone: [facility] 10-12-2024 12:20-0400 Respiratory rate 16 /min Dora Kate DO Work Phone: [facility] 10-12-2024 12:20-0400 SaO2% (BldA) [Mass fraction] 98 % Dora Kate DO Work Phone: [facility] 10-12-2024 12:20-0400 Systolic blood pressure 129 mm[Hg] Dora Kate DO Work Phone: [facility] 10-12-2024 08:00-0400 Body height 185 cm Dora Kate DO Work Phone: [facility] 10-12-2024 08:00-0400 Body mass index (BMI) [Ratio] 23.55 kg/m2 Dora Evertale DO Work Phone: [facility] 10-12-2024 08:00-0400 Body weight 80.6 kg Dora Kate DO Work Phone: [facility] 09-28-2024 13:25-0400 Body temperature 97.5 [degF] Dora Kate DO Work Phone: [facility] 09-28-2024 13:25-0400 Diastolic blood pressure 70 mm[Hg] Dora Kate DO Work Phone: [facility] 09-28-2024 13:25-0400 Heart rate 68 /min Dora Kate DO Work Phone: [facility] 09-28-2024 13:25-0400 Respiratory rate 16 /min Dora Kate DO Work Phone: [facility] 09-28-2024 13:25-0400 SaO2% (BldA) [Mass fraction] 100 % Dora Kate DO Work Phone: [facility] 09-28-2024 13:25-0400 Systolic blood pressure 117 mm[Hg] Dora Kate DO Work Phone: [facility] 09-28-2024 08:55-0400 Body height 184 cm Dora Kate DO Work Phone: [facility] 09-28-2024 08:55-0400 Body mass index (BMI) [Ratio] 23.84 kg/m2 Dora Kate DO Work Phone: [facility] 09-28-2024 08:55-0400 Body weight 80.7 kg Dora Kate DO Work Phone: [facility] 09-25-2024 09:10-0400 Body weight 79.37 kg Nick HEDRICK Work Phone: [facility] 03-30-2024 12:25-0400 Body temperature 97.7 [degF] Dora Kate DO Work Phone: [facility] 03-30-2024 12:25-0400 Diastolic blood pressure 82 mm[Hg] Dora Kate DO Work Phone: [facility] 03-30-2024 12:25-0400 Heart rate 97 /min Dora Kate DO Work Phone: [facility] 03-30-2024 12:25-0400 Respiratory rate 16 /min Dora Kate DO Work Phone: [facility] 03-30-2024 12:25-0400 SaO2% (BldA) [Mass fraction] 98 % Dora Kate DO Work Phone: [facility] 03-30-2024 12:25-0400 Systolic blood pressure 124 mm[Hg] Dora Kate DO Work Phone: [facility] 03-30-2024 08:34-0400 Body height 184.8 cm Dora [employer] Work Phone: [facility] 03-30-2024 08:34-0400 Body mass index (BMI) [Ratio] 24.25 kg/m2 Dora [employer] Work Phone: [facility] 03-30-2024 08:34-0400 Body weight 82.8 kg Dora Kate [employer] Work Phone: [facility] 03-16-2024 13:55-0400 Body temperature 98.1 [degF] Misc Doc [facility] 03-16-2024 13:55-0400 Diastolic blood pressure 80 mm[Hg] Misc Doc [facility] 03-16-2024 13:55-0400 Heart rate 84 /min Misc Doc [facility] 03-16-2024 13:55-0400 Respiratory rate 16 /min Misc Doc [facility] 03-16-2024 13:55-0400 SaO2% (BldA) [Mass fraction] 96 % Misc Doc [facility] 03-16-2024 13:55-0400 Systolic blood pressure 123 mm[Hg] Misc Doc [facility] 03-16-2024 08:30-0400 Body height 187.5 cm Misc Doc [facility] 03-16-2024 08:30-0400 Body mass index (BMI) [Ratio] 23.95 kg/m2 [facility] Doc [facility] 03-16-2024 08:30-0400 Body weight 84.2 kg [facility] Doc [facility] Encounters Encounter Date Encounter Type Care Provider Facility Start: 04-20-2025 End: 04-20-2025 ambulatory NICK OLSON Facility:[facility] Start: 04-18-2025 End: 04-18-2025 Emergency department patient visit Nick Olson NP Facility:[facility] Start: 11-17-2024 End: 11-17-2024 ambulatory Nick Olson MANAGER HOUSE Facility:[facility] [place] [place] Start: 11-08-2024 End: 11-08-2024 ambulatory Hunter Ceja Facility:[facility] Start: 10-16-2024 ambulatory iNck Olson MANAGER HOUSE Facili ty:[facility] Start: 10-16-2024 Non-patient / Non-visit Hunter Chew nd, DO -[facility] Start: 10-16-2024 End: 10-16-2024 Admission to same day surgery center Hunter Ceja DO -Endoscopy Work Phone: Start: 10-16-2024 End: 10-16-2024 ambulatory Nick Olson MANAGER HOUSE-C Work Phone: [facility] Work Phone: Start: 10-12-2024 End: 10-12-2024 Subsequent hospital visit by physician Dora Kate DO Work Phone: [facility] Comment on above: 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); 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; Rheumatoid arthritis of multiple sites with negative rheumatoid factor; Vitamin D deficiency Start: 10-12-2024 End: 10-12-2024 ambulatory DORA KATE [facility] Start: 10-04-2024 End: 10-04-2024 ambulatory Nick Olson MANAGER HOUSE-C Work Phone: [facility] Work Phone: Start: 10-04-2024 End: 10-04-2024 Patient encounter procedure Hunter Ceja DO -Laboratory, Specimen Work Phone: Start: 10-04-2024 End: 10-04-2024 ambulatory Hunter Ceja Facility:[facility] Start: 09-28-2024 End: 09-28-2024 Subsequent hospital visit by physician Dora Kate DO Work Phone: Infusion Center Comment on above: halfway (current) use of non-steroidal anti-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 (nsaid) (Primary Dx); 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; Rheumatoid arthritis of multiple sites with negative rheumatoid factor; Vitamin D deficiency Start: 09-28-2024 End: 09-28-2024 ambulatory [facility] Start: 09-25-2024 End: 09-25-2024 Patient encounter procedure Hunter Ceja DO -Laboratory Work Phone: Start: 09-25-2024 End: 09-25-2024 ambulatory Nick Olson NP-C Work Phone: [facility] Work Phone: Start: 09-25-2024 End: 09-25-2024 Patient encounter procedure Hunter Ceja DO -[facility] Work Phone: Start: 09-25-2024 End: 09-25-2024 ambulatory Hunter Ceja Facility:[facility] Start: 08-31-2024 End: 08-31-2024 ambulatory DORA [facility] Start: 2024 End: 2024 ambulatory [facility] Start: 07-31-2024 End: 07-31-2024 ambulatory DORA KATE Facility:[facility] Start: 06-14-2024 End: 06-14-2024 ambulatory DORA KATE Facility:[facility] Start: 05-17-2024 End: 05-17-2024 ambulatory NICK OLSON [facility] Start: 03-30-2024 End: 03-30-2024 Subsequent hospital visit by physician Dora Kate DO Work Phone: Infusion Center Comment on above: halfway (current) use of non-steroidal anti-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 (nsaid) (Primary Dx); halfway current use of 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; Rheumatoid arthritis of multiple sites with negative rheumatoid factor; Vitamin D deficiency Start: 03-30-2024 End: 03-30-2024 [facility] Start: 03-16-2024 End: 03-16-2024 Subsequent hospital visit by physician Suleiman Ohara MD Infusion Center Comment on above: halfway (current) use of non-steroidal anti-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 (nsaid) (Primary Dx); halfway current use of 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; Rheumatoid arthritis of multiple sites with negative rheumatoid factor; Vitamin D deficiency Start: 03-16-2024 End: 03-16-2024 [facility] Start: 02-17-2024 End: 02-17-2024 [facility] Start: 11-30-2023 End: 11-30-2023 [facility] Start: 11-01-2023 End: 11-01-2023 Subsequent hospital visit by physician Dora Kate DO Work Phone: [facility] Comment on above: Rheumatoid arthritis of multiple sites with negative rheumatoid factor; 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 Start: 11-01-2023 End: 11-01-2023 [facility] Start: 11-01-2023 End: 11-01-2023 Subsequent hospital visit by physician Dora Kate DO Work Phone: Interventional Radiology Comment on above: Rheumatoid arthritis of multiple sites with negative rheumatoid factor; Arthritis of right elbow Start: 11-01-2023 End: 11-01-2023 [facility] Start: 02-15-2023 End: 02-15-2023 Subsequent hospital visit by physician Madison Yo MD Work Phone: [facility] Comment on above: IBD (inflammatory gladis wel [...] 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); halfway current use of 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; Vitamin D deficiency Start: 10-26-2017 Ambulatory DORA [facility] Start: 09-22-2017 Normal vision Dora Humble Smith Work Phone: [facility] Start: 06-03-2017 End: 06-03-2017 Emergency department patient visit DORA [facility] Start: 01-24-2017 Ambulatory [facility] Procedures Date Procedure Procedure Detail Performing Clinician Start: 04-18-2025 Urnls dip stick/tabl et reagent auto microscopy Nick Olson MANAGER HOUSE-C Work Phone: Start: 04-18-2025 Ct abdomen & pelvis w/contrast material Nick Olson MANAGER HOUSE-C Work Phone: Start: 04-18-2025 Estimated creatinine clearance Nick Olson MANAGER HOUSE-C Work Phone: Start: 10-16-2024 Colonoscopy Nick parra MANAGER HOUSE-C Work Phone: Start: 10-12-2024 Blood count hemoglobin NICK OLSON Comment on above: Order Comment: Relea se to patient->Automatic Start: 10-12-2024 Urnls dip stick/tabl et reagent auto microscopy Dora Kate DO Work Phone: Start: 10-12-2024 Comprehensive metabo lic panel Dora Kate DO Work Phone: Start: 10-04-2024 Lactoferrin measurement Nick Olson MANAGER HOUSE-C Work Phone: Start: 10-04-2024 Measurement of occul t blood in stool specimen using immunoassay Nick Trill MANAGER HOUSE-C Work Phone: Start: 10-04-2024 Nucleic acid assay Rashel Olson MANAGER HOUSE-C Work Phone: Start: 09-28-2024 Blood count hemoglobin [...] #### 2 100 #### VANNA SAENZ W ([id number]) [place]) [address] Start: 03-30-2024 Urnls dip stick/tabl et [...] #### 1 001 #### VANNA SAENZ W ([id number]) [place]) [address] Start: 11-01-2023 Unlisted fluoroscopi c procedure Dora C Humble DO Work Phone: Start: 02-15-2023 Us abdominal real ti me w/image limited Madison Yo MD Work Phone: Start: 08-31-2022 Unlisted fluoroscopi c procedure Dora C Cook DO Work Phone: Start: 11-13-2021 CBC W [...] Pertussis Vaccines (8 - Td or Tdap) [facility] Start: 09-28-2025 TB Test TB Test [facility] Start: 04-26-2025 End: 04-26-2025 Patient encounter procedure 04/26/2025 8:00 AM EDT Appointment [facility]fusion [facility] [address] [place] [address], Floor 1 [place] [address] [facility] Comment on above: [facility] Start: 04-13-2025 End: 04-13-2025 Patient encounter procedure 04/13/2025 8:00 AM EDT Appointment [facility]fusion [facility] [address] [place] [address], Floor 1 [place] [address] [facility] Comment on above: [facility] Start: 02-13-2025 MenB (2 of 2 - MenB 2-Dose Series Bexsero) MenB (2 of 2 - MenB 2-Dose Series Bexsero) [facility] Start: 10-31-2024 TB Test TB Test [facility] Start: 10-16-2024 Patient discharge [facility] Start: 10-12-2024 End: 10-12-2024 Patient encounter procedure Infusion Center Comment on above: [facility] 1:2/[facility] Pro Obs Start: 09-28-2024 End: 09-28-2024 Patient encounter procedure 09/28/2024 9:00 AM EDT Appointment Infusion Center [address], [address] [place] [address] [facility] Comment on above: [facility] 1:2/[facility] Start: 09-25-2024 Acute hepatitis 2000 panel - Serum [facility] Start: 09-25-2024 Angiotensin converting enzyme [Enzymatic activity/volume] in Serum or Plasma [facility] Start: 09-25-2024 Celiac disease screen [facility] Start: 09-25-2024 Haptoglobin [Mass/volume] in Serum or Plasma [facility] Start: 09-25-2024 IgG subclass panel [Mass/volume] - Serum [facility] Start: 09-25-2024 Immunoglobulin measurement [facility] Start: 09-25-2024 In-vitro immunologic test [facility] Start: 09-25-2024 Mitochondria Ab [Presence] in Serum [facility] Start: 09-25-2024 Serum immunofixation [facility] Start: 09-25-2024 Smooth muscle Ab [Presence] in Serum [facility] Start: 09-25-2024 Vitamin D, 1,25-dihydroxy measurement [facility] Start: 09-25-2024 [facility] Start: 05-17-2024 End: 05-17-2024 Patient encounter procedure Rheumatology - [place] Comment on above: 3 mo FU Start: 03-30-2024 End: 03-30-2024 Patient encounter procedure 03/30/2024 8:30 AM EDT Appointment Infusion Center [address], [address] [place] [address] Infusion Center Start: 02-27-2024 COVID-19 ( season) COVID-19 ( season) [facility] Start: 02-27-2024 COVID-19 ( season) COVID-19 ( season) [facility] Start: 02-16-2024 End: 02-16-2024 Patient encounter procedure 02/16/2024 8:30 AM EDT Office Visit Rheumatology - [place] [address], [address] [place] [address] Dora Kate, DO [address] [place] [place], [place] [id number] [facility] - [place] Start: 11-30-2023 End: 11-30-2023 Patient encounter procedure 11/30/2023 11:00 AM EDT Office Visit Gastroenterology - [place] [facility] [place], [place] [id number] Madison Fagan MD [address] [place], [place] [id number] Gastroenterology - [place] Start: 05-06-2023 End: 05-06-2023 Patient encounter procedure 05/06/2023 8:30 AM EST Office Visit Rheumatology [address] [place], [place] [id number] Dora Kate, DO [address] [facility] [id number] Rheumatology - [place] Start: 03-24-2023 End: 03-24-2023 Patient encounter procedure 03/24/2023 8:30 AM EDT Office Visit Gastroenterology - [place] [address] [place], [place] [id number] Madison Fagan MD [facility] [place] [id number] Gastroenterology - [place] Start: 02-26-2023 COVID-19 ( season) COVID-19 ( season) [facility] Start: 02-26-2023 FLU (#1) FLU (#1) [facility] Start: 12-31-2022 End: 12-31-2022 Patient encounter procedure 12/31/2022 8:30 AM EDT Office Visit Rheumatology [address] [place], [place] [id number] Dora Kate, [place] [address] Rheumat[facility] - [place] Start: 09-12-2022 Tetanus Diphtheria and Pertussis Vaccines (7 - Td or Tdap) Tetanus Diphtheria and Pertussis Vaccines (7 - Td or Tdap) [facility] Start: 02-26-2022 FLU (Season Ended) FLU (Season Ended) [facility] Start: 02-25-2022 End: 02-25-2022 Patient encounter procedure 02/25/2022 Office Visit [place]astroenter[place] [address] Gastroenterology - [place] Start: 01-20-2022 COVID-19 (4 - Booster for Pfizer series) COVID-19 (4 - Booster for Pfizer series) [facility] Start: 12-16-2021 COVID-19 (4 - Booster for Pfizer series) COVID-19 (4 - Booster for Pfizer series) [facility] Start: 08-08-2020 TB Test TB Test [facility] Start: 2019 Hepatitis B (1 of 3 - 19+ 3-dose series) Hepatitis B (1 of 3 - 19+ 3-dose series) [facility] Start: 2018 Hearing Screening Hearing Screening [facility] Start: 2018 PATH Education 18+ Years PATH Education 18+ Years [facility] Start: 10-19-2016 Hepatitis A (2 of 2 - 2-dose series) Hepatitis A (2 of 2 - 2-dose series) [facility] Start: 2016 MenB (1 of 2 - MenB 2-Dose Series Bexsero) MenB (1 of 2 - MenB 2-Dose Series Bexsero) [facility] Start: 2016 MenB (1 of 2 - MenB 2-Dose Series) MenB (1 of 2 - MenB 2-Dose Series) [facility] Start: 2015 HPV (1 - Male 3-dose series) HPV (1 - Male 3-dose series) [facility] Start: 2015 PATH Education 15-17+ Years PATH Education 15-17+ Years [facility] Start: 2015 Vision Screening Vision Screening [facility] Start: 2012 PATH Education 12-14+ Years PATH Education 12-14+ Years [facility] Start: 2012 PATH Transitional Assessment PATH Transitional Assessment [facility] Start: 2011 HPV (1 - Male 2-dose series) HPV (1 - Male 2-dose series) [facility] Start: 2003 Well Visit Well Visit [facility] Start: 2000 Hepatitis B (1 of 3 - 3-dose series) Hepatitis B (1 of 3 - 3-dose series) [facility] Albumin [Moles/volum e] in Serum or Plasma [facility] Albumin/Globulin ratio [facility] Alternaria alternata RAST [facility] South Korean house dust mite IgE Ab [Units/volume] in Serum [facility] Beef IgE Ab [Units/volume] in Serum [facility] Bermuda grass IgE Ab [Units/volume] in Serum [facility] Cat dander IgE Ab [Units/volume] in Serum [facility] Chocolate IgE Ab [Units/volume] in Serum [facility] Codfish IgE Ab [Units/volume] in Serum [facility] Common Ragweed IgE A b [Units/volume] in Serum [facility] [place] IgE Ab [Units/volume] in Serum [facility] Cow milk IgE Ab [Units/volume] in Serum [facility] Dog epithelium IgE A b [Units/volume] in Serum [facility] Elastase.pancreatic [Presence] in Stool [facility] Electrophoresis: [id number] [facility] Electrophoresis: rosa ma globulin [facility] house dust mite IgE Ab [Units/volume] in Serum [facility] Fat [Presence] in Stool [facility] Folate [Moles/volume ] in Serum or Plasma [facility] Food RAST [facility] Globulin measurement [facility] Hepatitis A virus Ig M Ab [Presence] in Serum [facility] Hepatitis B core antibody measurement, IgM type [facility] Hepatitis B surface antigen measurement [facility] Hepatitis C antibody measurement [facility] IgA [Mass/volume] in Serum or Plasma [facility] IgE [Units/volume] i n Serum or Plasma [facility] IgG [Mass/volume] in Serum or Plasma [facility] IgG subclass 1 [Mass/volume] in Serum [facility] IgG subclass 2 [Mass/volume] in Serum [facility] IgG subclass 3 [Mass/volume] in Serum [facility] IgG subclass 4 [Mass/volume] in Serum [facility] IgM [Mass/volume] in Serum or Plasma [facility] Kentucky blue grass IgE Ab [Units/volume] in Serum [facility] Laboratory data interpretation [facility] Lactoferrin [Presenc e] in Stool by Immunoassay [facility] Measurement of occul t blood in stool specimen using immunoassay [facility] Mouse urine proteins RAST [facility] MRI of small intestine [facility] Mycobacterium tuberculosis tuberculin stimulated gamma interferon [Presence] in Blood [facility] Neutrophil cytoplasm ic Ab.classic [Units/volume] in Serum [facility] Nucleic acid assay [facility] P-ANCA measurement [facility] Patient Education Colitis Crohns Disease Dc [facility] Work Phone: Patient referral [facility] Work Phone: Peanut IgE Ab [Units/volume] in Serum [facility] Plantain (Vietnamese) RAST [facility] Pork IgE Ab [Units/volume] in Serum [facility] Protein electrophore sis panel - Serum or Plasma [facility] Protein measurement [facility] End: 11-13-2021 Quantiferon TB Gold [facility] Work Phone: Comment on above: 1 Occurrences starting 11/13/2021 until 11/13/2021 End: 11-01-2023 Quantiferon TB Gold Quantiferon TB Gold Lab Timed Rheumatoid arthritis of multiple sites with negative rheumatoid factor halfway current use of 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 1 Occurrences starting 11/01/2023 until 11/01/2023 [facility] Work Phone: Comment on above: 1 Occurrences starting 11/01/2023 until 11/01/2023 End: 09-28-2024 Quantiferon TB Gold [facility] Comment on above: For lab collect this frequency defaults to the next routine lab draw time. Routine times: 0600; 1100; 1400; 1900; 2200 for 1 Occurrences starting 09/28/2024 until 09/28/2024 [place] IgE Ab [Units/volume] in Serum [facility] Shrimp IgE Ab [Units/volume] in Serum [facility] Soybean IgE Ab [Units/volume] in Serum [facility] Tissue transglutamin ase IgA Ab [Units/volume] in Serum [facility] Tuna IgE Ab [Units/volume] in Serum [facility] End: 03-30-2024 Vitamin D 1,25 dihydroxy [facility] Work Phone: Comment on above: For lab collect this frequency defaults to the next routine lab draw time. Routine times: 0600; 1100; 1400; 1900; 2200 for 1 Occurrences starting 03/30/2024 until 03/30/2024 End: 03-16-2024 Vitamin D 1,25 dihydroxy [facility] Work Phone: Comment on above: For lab collect this frequency defaults to the next routine lab draw time. Routine times: 0600; 1100; 1400; 1900; 2200 for 1 Occurrences starting 03/16/2024 until 03/16/2024 End: 09-28-2024 Vitamin D 1,25 dihydroxy [facility] Work Phone: Comment on above: For lab collect this frequency defaults to the next routine lab draw time. Routine times: 0600; 1100; 1400; 1900; 2200 for 1 Occurrences starting 09/28/2024 until 09/28/2024 Wheat IgE Ab [Units/volume] in Serum [facility] White Elm IgE Ab [Units/volume] in Serum [facility] Clif[place] IgE Ab [Units/volume] in Serum [facility] Whole Egg IgE Ab [Units/volume] in Serum [facility] Immunizations Immunization Date Immunization Notes Care Provider Chencho nielsen 03-16-2024 influenza, seasonal, injectable, preservative free Misc Doc [facility] 05-27-2023 influenza, injectabl e, quadrivalent, preservative free Dora Kate DO Work Phone: [facility] 04-16-2022 influenza, injectabl e, quadrivalent, preservative free Dora Kate DO Work Phone: [facility] 06-01-2019 influenza, injectabl e, quadrivalent, preservative free Dora Kate DO Work Phone: [facility] 04-19-2018 influenza, injectabl e, quadrivalent, preservative free Dora Kate DO Work Phone: [facility] 07-22-2017 influenza, injectabl e, quadrivalent, preservative free Dora Kate DO Work Phone: [facility] 04-20-2016 hepatitis A vaccine, pediatric/adolescent dosage, 2 dose schedule Dora Kate DO Work Phone: [facility] 04-08-2015 Influenza Quadrivalent Rashaun Kate DO Work Phone: [facility] 03-20-2013 influenza virus vaccine, whole virus Dora Kate DO Work Phone: [facility] 09-12-2012 tetanus toxoid, redu eber diphtheria toxoid, and acellular pertussis vaccine, adsorbed Dora Kate DO Work Phone: [facility] 03-21-2012 influenza virus vaccine, unspecified formulation Dora Kate DO Work Phone: [facility] 04-08-2011 influenza virus vaccine, unspecified formulation Dora Kate DO Work Phone: [facility] 05-09-2010 influenza virus vaccine, unspecified formulation Dora Kate DO Work Phone: [facility] 05-12-2009 novel [id number], all formulations Dora Kate DO Work Phone: [facility] 04-11-2009 novel [id number], all formulations Dora Kate DO Work Phone: [facility] 03-28-2009 influenza virus vaccine, unspecified formulation Dora Kate DO Work Phone: [facility] 10-11-2006 varicella virus vaccine Jennifer Kate DO Work Phone: [facility] 08-31-2005 diphtheria, tetanus toxoids and acellular pertussis vaccine Dora Kate DO Work Phone: [facility] 08-31-2005 measles, mumps and rubella virus vaccine Dora Kate DO Work Phone: [facility] 08-31-2005 poliovirus vaccine, inactivated Dora Kate DO Work Phone: [facility] 03-06-2002 diphtheria, tetanus toxoids and acellular pertussis vaccine Dora Kate DO Work Phone: [facility] 02-27-2002 poliovirus vaccine, inactivated Dora Kate DO Work Phone: [facility] 11-24-2001 measles, mumps and rubella virus vaccine Dora Kate DO Work Phone: [facility] 08-25-2001 pneumococcal conjuga te vaccine, 7 valent Dora Kate DO Work Phone: [facility] 08-25-2001 varicella virus vaccine Jennifer Kate DO Work Phone: [facility] 05-24-2001 pneumococcal conjuga te vaccine, 7 valent Dora Kate DO Work Phone: [facility] 03-28-2001 diphtheria, tetanus toxoids and acellular pertussis vaccine Dora Kate DO Work Phone: [facility] 01-25-2001 diphtheria, tetanus toxoids and acellular pertussis vaccine Dora Kate DO Work Phone: [facility] 01-25-2001 pneumococcal conjuga te vaccine, 7 valent Dora Kate DO Work Phone: [facility] 01-25-2001 poliovirus vaccine, inactivated Dora Kate DO Work Phone: [facility] 2000 diphtheria, tetanus toxoids and acellular pertussis vaccine Dora Kate DO Work Phone: [facility] 2000 pneumococcal conjuga te vaccine, 7 valent Dora Kate DO Work Phone: [facility] 2000 poliovirus vaccine, inactivated Dora Kate DO Work Phone: [facility] Payers Date Payer Category Payer Self-pay 2022 Unknown [id number] 2011 Unknown 2000 Unknown [id number] 2.16. [id number] 2000 Unknown [id number] 2.16. 840.1.026604.3.579.2 2000 Unknown [id number] 2.16. 840.1.332621.3.579.2 2000 Unknown [id number] 2.16. 840.1.441812.3.579.247 2000 Unknown [id number] 2.16. 840.1.909746.3.579.2 2000 Unknown [id number] 2.16. 840.1.349575.3.579.247 2000 Unknown [id number] 2.16. 840.1.965959.3.579.2 2000 Unknown [id number] 2.16. 840.1.063564.3.579.2 2000 Unknown [id number] 2.16. 840.1.054569.3.579.247 2000 Unknown [id number] 2.16. 840.1.308070.3.579.2.479 2000 Unknown [id number] 2.16. 840.1.818038.3.579.2.479 2000 Unknown [id number] 2.16. 840.1.740806.3.579.2.479 Unknown [id number] 2.16.8 40.1.398024.3.579.2.462 Unknown [id number] 2.16.8 40.1.481861.3.579.2.462 Unknown [id number] 2.16.8 40.1.767021.3.579.2.462 Unknown [id number] 2.16.8 40.1.120128.3.579.2.462 Unknown [id number] 2.16.8 40.1.497504.3.579.2.462 Unknown [id number] 2.16.8 40.1.154444.3.579.2.462 Unknown [id number] 2.16.8 40.1.669173.3.579.2.462 Unknown [id number] 2.16.8 40.1.020627.3.579.2.462 Social History Date Type Detail Facility Start: 11-06-2021 End: 04-18-2025 Tobacco smoking status NHIS Never smoked tobacco [facility] History of tobacco use Cigarette Smoker [facility] Start: 11-06-2021 End: 02-17-2024 Cigarette pack-years [facility] Start: 11-06-2021 End: 10-14-2023 Tobacco use and exposure Smokeless tobacco non-user [facility] Start: 11-06-2021 End: 10-12-2024 Alcohol intake Current non-drinker of alcohol (finding) [facility] Start: 04-06-2019 History SDOH Alcohol Comment denies [facility] Start: 11-06-2021 Tobacco Comment pt denies- mom smokes outside [facility] Start: 2000 Sex Assigned At Not on file [facility] Start: 11-03-2021 End: 11-13-2021 Exposure to SARS-CoV-2 (event) Not sure [facility] History of tobacco use Passive smoker [facility] Start: 08-27-2022 End: 02-17-2024 Tobacco use panel [facility] Start: 09-27-2024 End: 10-16-2024 Sex Male (finding) [facility] Start: 2000 Sex Assigned At Male W [facility] NEGATED: Highlighted rowStart: NINF History of tobacco use Passive smoker [facility] Goals Date Patient Goal Desired Activity /State Functional Status Date Assessment Result Facility 08-15-2019 Are you blind, or do you have serious difficulty seeing, even when wearing glasses No 08/15/2019 8:55 AM Margret Valentine RN No [facility] Mental Status Date Assessment Result Facility 10-16-2024 Cognitive function Voice/Name [facility] Work Phone: Clinical Notes 11-13-2021 to 04-20-2025 Note Date & Type Note Facility 04-20-2025 Note HNO ID: [id number] Author: NICK OLSON APRN.INTERNATIONAL STUDENT COUNSELOR Service: ? Author Type: Nurse Practitioner Type: Progress Notes Filed: 04/21/2025 00:01 Note Text: I have communicated my name and active licensure. The patient's identity and physical location were verified at the time of this visit. Either the patient or their legal sales service representative has been informed of the risks and benefits of -- and alternatives to -- treatment through a remote evaluation and consents to proceed with the evaluation remotely. Subjective Mc Rice is a 24-year-old male with a history of rheumatoid arthritis and Crohn's disease, presenting for a virtual visit due to acute lower back pain. Mc reports the onset of lower back pain a few days ago after an incident involving his dog. While taking his dog outside, the dog began chasing another dog, necessitating Mc to wrestle and hold the dog in a bent position for an extended period. During this maneuver, he experienced pain in the right lower back, which radiates into the right hip and down the right leg. He denies any popping sensation or clicking noises during the incident and also denies numbness or tingling in the leg. The pain is gradually improving each day. Mc has a history of rheumatoid arthritis and takes Relafen 500 mg BID regularly for management. He has not experienced lower back issues for an extended period. He is interested in trying a muscle relaxer, provided it is safe to use with his Crohn's disease, and wishes to avoid stronger pain medications at this time. He reports adequate sleep and is able to ambulate without difficulty. 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 Stenosis of cecum EGD 10/2019 PAST SURGICAL HISTORY OF cyst lt wrist- debridment RA PAST SURGICAL HISTORY OF Left shoulder surgery WRIST rt wrist fractured Jan 2012 ORIF ALLERGIES Patient has no known allergies. MEDICATIONS promethazine (PHENERGAN) 12.5 mg tablet 12.5 mg. riTUXimab (RITUXAN) 10 mg/mL injection as directed Intravenous mesalamine ER (APRISO) 0.375 gram capsule Take 2 capsules by mouth three times a day. cyclobenzaprine (FLEXERIL) 5 mg tablet Take 1 tablet by mouth two times a day as needed. cetirizine (ZYRTEC) 10 mg tablet Take 1 tablet by mouth once daily. nabumetone (RELAFEN) 500 mg tablet Take 2 Tablets (1,000 mg) by mouth daily ergocalciferol 50,000 unit capsule (VITAMIN D2, DRISDOL) Take 1 capsule by mouth. ustekinumab (STELARA) 90 mg/mL injection Inject 90 mg subcutaneously. omeprazole (PRILOSEC) 20 mg capsule Take 1 capsule by mouth once daily. FAMILY HISTORY Problem Relation Age of Onset COPD Maternal Grandmother Lipids Maternal Grandmother COPD Maternal Grandfather GI Mother Hypertension Mother SOCIAL HISTORY[1] Objective There were no vitals taken for this visit. GENERAL: alert and appropriate, in no distress and well-hydrated, well nourished SKIN: no rash noted HEAD: normocephalic, no abnormality or lesion noted EYES: no injection OROPHARYNX: moist mucus membranes RESPIRATORY: breathing non-labored NEUROLOGIC: no facial droop, speech is clear and fluent and no obvious deficit Assessment/Plan: 1. Acute right-sided low back pain with right-sided sciatica (M54.41) Acute right-sided low back pain with radiation to the right hip and leg, improving daily. No prior recent back issues; no numbness or paresthesia. - Order lumbar spine X-ray to evaluate for arthritis and acute injury. - Start cyclobenzaprine at low dose PRN; reviewed potential side effects (dry mouth, acid regurgitation, abdominal pain, constipation, diarrhea) and advised to monitor for these. - Follow-up in 2-4 weeks if pain persists. Nick Olson APRN.INTERNATIONAL STUDENT COUNSELOR Visit was conducted via [email or web address] Patient Location: Patient Home or Place of Residence [1] Social History Tobacco Use Smoking status: Never Smokeless tobacco: Never Vaping Use Vaping status: Never Used Substance Use Topics Alcohol use: No Comment: Non-drinker Drug use: No Comment: No reported history [facility] 04-19-2025 Discharge summary [facility] 04-18-2025 Radiology Diagnostic study note [facility] Imaging Services [address], [place] [address] Abdomen/Pelvis W IV Cont ONLY MR#: [id number] Acct: [id number] Name: MC RICE Rep #: [id number] : 2000 M 24 From: Vladimir Funk MD PCP: Nick Olson MANAGER HOUSEElvaC Status: REG ER Study:Abdomen/Pelvis W IV Cont ONLY Date of E xam: 04/18/25 Exam# [id number] Ordering Dr: Kareem Landeros DO PROCEDURE: ABDOMEN/PELVIS W IV CONT ONLY 04/18/2025 REASON FOR EXAM: ABDOMINAL PAIN, HISTORY OF CROHN'S TECHNIQUE: Procedure Code: CTABDPELIV Modality: CT Procedure: ABDOMEN/PELVIS W IV CONT ONLY Coronal and Sagittal reconstruction series were provided. CONTRAST: VOLUME: mL One or more dose reduction techniques were used (e.g., Automated exposure control, adjustment of the mA and/or kV according to patient size, use of iterative reconstruction technique. FINDINGS: The visualized lung bases are clear. The liver, gallbladder, pancreas, spleen, adrenal glands, kidneys, and urinary bladder appear unremarkable. A focus of lobulated high density material is noted within the cecum, with moderate wall thickening. No adjacent fat stranding. No evidence of a bowel obstruction. No bowel wall thickening. The appendix is visualized and unremarkable. No intraperitoneal free air or free fluid. No abdominal nor pelvic lymphadenopathy. No acute osseous abnormality. No acute fracture. Mild levoconvex lumbar scoliosis. CT/Abdomen/Pelvis W IV Cont ONLY IMPRESSION: Focal lobulated density within the cecum with moderate cecal wall thickening. This could represent inspissated stool. The cecal wall thickening could represent nonspecific colitis or typhlitis. No other acute process is identified. Reading Location: [id number] CC: MANAGER HOUSE-C Nick Olson; Dr. Kareem López DO ~ Laundry Operator Finishing: Signed [facility] 04-18-2025 Discharge summary Note Date/Time April 19, 2025 12:09am [facility] Medical Records Department [address] [place] [address] Emergency Department Summary 04/18/25 MR#: [id number] Acct: [id number] Name: MC RICE Rep #:[id number] : 2000 24 From: Kareem hooker DO PCP: FLORIDALMA Vasquez Status:REG ER Location: ED HPI History of Present Illness Chief Complaint: Abd Pain Narrative Narrative: Chief complaint and HPI: 24-year-old male with past medical history of Crohn's disease and rheumatoid arthritis on rituximab and Stelara who presents for evaluation of abdominal pain. Patient states he usually has diarrhea however became more constipated today with abdominal pain. Associated symptom is nauseaand vomiting. He states this feels like a typical Crohn's flare. He denies anyfever, chills, shortness of breath, chest pain, dysuria. Ate this morning. Follows with Dr. Ceja. States he has a known stricture in his intestines witha large stool ball. States he has had it for years. States they are having discussion about leaving it versus surgery. Does smoke marijuana. Review of systems: See HPI Medications: As listed on the chart Allergies: As listed on the chart PFSH: Per chart Vital signs: As listed on the chart. Reviewed. Physical exam: Gen: A&O x3, NAD Head: Normocephalic, atraumatic Eyes: No sclera icterus, conjunctiva clear ENT: Dry mucous membranes CV: RRR, no murmurs Resp: Lungs CTA BL, no w/r/c GI: Abd soft, non-distended, mildly tender to palpation diffusely, no r/r/g Musc: Full ROM, no deformity Skin: Warm, dry Neuro: Alert, oriented, grossly intact, sensation intact Psych: Cooperative, appropriate mood and affect PFSH PFSH Medical History History of steroid therapy [...] 09/25/24 Unknown History mcg (50,000 unit) capsule nabumetone 500 [...] mg subcut Q5W Unknown History syringe (Stelara) mesalamine 0.375 gram 0.75 g (2 x 0.375 gram) PO T ID 11/17/24 Unknown Rx capsule,extended release 24 hr #540 caps Allergy/AdvReac Type Severity Reaction Status Date / Time No Known Allergies Allergy Verified 04/18/25 18:43 Family History Sister Anxiety Mother Arthritis Grandmother Arthritis Autoimmune disorder Hypertension Hyperlipemia Grandfather COPD (chronic obstructive pulmonary disease) Aunt Breast cancer Depression Surgical History History of shoulder surgery History of esophagogastroduodenoscopy (EGD) Hx of colonoscopy Social History Smoking Status: Never smoker alcohol intake: never substance use type: marijuana what type of physical activity do you participate in: other details: physical therapy EXAM Physical Exam Const Vital Signs: 04/18/25 18:43 04/18/25 20:43 04/18/25 22:00 Temperature 98.4 F Temperature Source Oral Pulse Rate 68 72 88 Respiratory Rate 18 16 16 Blood Pressure 117/66 127/70 H 120/70 Blood Pressure Mean 83 89 86 Pulse Ox 100 100 98 Oxygen Delivery Method Room Air MDM MDM MDM Narrative Medical decision making narrative: 24-year-old male with past medical history of Crohn's disease and rheumatoid arthritis on rituximab and Stelara who presents for evaluation of abdominal pain. Patient states he usually has diarrhea however became more constipated today with abdominal pain. Associated symptom is nausea and vomiting. He states this feels like a typical Crohn's flare. Follows with Dr. Ceja. Stateshe has a known stricture in his intestines with a large stool ball. States he has had it for years. States they are having discussion about leaving it versussurgery. On chart review, patient had a colonoscopy with Dr. Ceja on 10/16/2024. Showed stricture in the cecum. He had an EGD as well that showed erythematous mucosa and erythematous duodenum. Patient states he cannot take steroids as he has bad reactions. Differential diagnosis includes but is not limited to Crohn's flare, gastroenteritis, colitis, obstruction, constipation, UTI, pancreatitis. NS bolus, morphine, Zofran ordered. CBC shows mild leukocytosis of 14.4. No anemia. CMP relatively unremarkable. Lactic unremarkable. Lipase unremarkable. UA is negative for UTI. CT abdomen pelvis shows focal lobulated density within the cecum with moderate cecal wall thickening. This could represent inspissated stool. The cecal wall thickening could represent nonspecific colitis or typhlitis. This correlates with the patient's known history and colonoscopy findings. On reevaluation, patient's pain has improved. I spoke with Dr. Friend and consults. Plan is to start him on antibiotics for possible typhlitis. Follow-up in his office. Return precautions explained. Will give Zofran as needed for nausea and vomiting. Patient confirmed understand the plan. Patient was discharged home. First doseof Augmentin given here in the emergency department. Impression: 1. Typhlitis 2. History of Crohn's disease Lab Data Labs: Laboratory Results - last 24 hr 04/18/25 04/18/25 20:20 21:52 WBC 14.4 H RBC 5.11 Hgb 15.3 Hct 44.0 MCV 86.1 MCH 29.9 MCHC 34.8 RDW Std Deviation 38.0 RDW Coeff of Fredis 11.9 Plt Count 234 MPV 9.2 Immature Gran % (Auto) 0.300 Neut % (Auto) 89.5 H Lymph % (Auto) 5.9 L Ellis % (Auto) 3.9 Eos % (Auto) 0.1 Baso % (Auto) 0.3 Absolute Neuts (auto) 12.9 H Absolute Lymphs (auto) 0.85 Nucleated RBC % 0 Sodium 137 Potassium 3.6 Chloride 101 Carbon Dioxide 23.0 Anion Gap 13 BUN 12 Creatinine 0.90 Estim Creat Clear Calc 143.03 Est GFR (MDRD) Non-Af 122 BUN/Creatinine Ratio 13.4 Glucose 107 H Lactic Acid 1.1 Calcium 10.0 Total Bilirubin 0.82 AST 24 ALT 23 Alkaline Phosphatase 58 Total Protein 7.3 Albumin 4.6 Globulin 2.7 Albumin/Globulin Ratio 1.7 Lipase 19 Urine Color Yellow Urine Clarity Sl. Cloudy Urine pH 7.0 Ur Specific Rexford 1.010 Urine Protein 30 H Urine Glucose (UA) Normal Urine Ketones 50 H Urine Occult Blood Negative Urine Nitrite Negative Urine Bilirubin Negative Urine Urobilinogen 1 H Ur Leukocyte Esterase Negative Urine RBC 0 SEEN Urine WBC 0 SEEN Ur Squamous Epith Cells 0-5 SEEN Urine Bacteria 1+ Urine Mucus 0 SEEN Radiography Diagnostic Testing: Clinical Impression(s) from Imaging Studies Abdomen/Pelvis CT 04/18/25 20:20 IMPRESSION: Focal lobulated density within the cecum with moderate cecal wall thickening. This could represent inspissated stool. The cecal wall thickening could represent nonspecific colitis or typhlitis. No other acute process is identified. Reading Location: [facility] Discharge Plan Triage Chief Complaint: Abd Pain ED Provider: Kareem López Dx/Rx/DC Orders Prescriptions: No Action Zyrtec 10 mg capsule 10 mg PO QDAY nabumetone 500 mg tablet 1,000 mg PO QDAY omeprazole 20 mg capsule,delayed release(DR/EC) 20 mg PO QDAY cholecalciferol (vitamin D3) 1,250 mcg (50,000 unit) capsule 1,250 mcg PO QWEEK Stelara 90 mg/mL syringe 90 mg subcut Q5W promethazine 12.5 mg tablet 12.5 mg PO Q6H PRN (Reason: nausea and vomiting) rituximab 10 mg/mL concentrate See Rx Instructions .ROUTE .COMPLEX Rx Instructions: 783.6mg in NaCl .9% 195.9mL infusion once every 6 months, then 2 weeks later; mesalamine 0.375 gram capsule,extended release 24hr 0.75 g PO TID Qty: 540 2RF Primary Care Provider: Nick Olson NP Referrals: Nick Olson NP, [facility] [Primary Care Provider, Medical] Print Language: Vietnamese What to do if you have Problems For any increased pain, shortness of breath, bleeding, nausea or vomiting, chestpain, or any unexpected problems, contact your Primary Care Provider. Call [facility] ([phone]) or report to the closest Emergency Room. Call 911 if necessary. 04/18/25 2307 <Electronically signed by Kareem López DO> Cosigner Signature (if applicable): CC: FLORIDALMA Olson ~ Signed [facility] Work Phone: 1(520) 734-114304-21-2025 Procedure note [facility] Medical Records Department [address] [place] [address] Colonoscopy Report MR#: [id number] Acct: [id number] Name: RICEMC GERARD Rep #:[id number] : 2000 24 From: Hunter Ceja DO [...] pathology results. Procedure Code(s): --- Professional --- 27919, Colonoscopy, flexible; with biopsy, single or multiple CPT copyright 2021 [employer]. All rights reserved. The codes documented in this report are preliminary and upon inspector dials review may be revised to meet current compliance requirements. Hunter Ceja DO 10/16/2024 1:01:34 PM This report has been signed electronically. Number of Addenda: 0 Note Initiated On: 10/16/2024 11:53 AM 10/16/24 1301 Date _ Hunter Ceja DO Cosigner Signature: Date (if indicated) CC: FLORIDALMA Ceja DO ~ Date Dictated: 10/16/24 1153 Date Transcribed: Laundry Operator Finishing: RF Signed [facility]04-21-2025 Procedure note [facility] Medical Records Department [address] [place] [address] Operative Report - CC Letter MR#: [id number] Acct: [id number] Name: MC RICE Rep #:[id number] : 2000 24 From: Hunter Ceja DO PCP: FLORIDALMA Vasquez Status:REG SD C 10/16/2024 Floridalma Vasquez Re : Colonoscopy procedure for Mc Rice Deabe Olson This procedure was performed on Wednesday, October 16, 2024. My impressions and recommendations are as follows: Impressions : - Stricture in the cecum. Biopsied. Recommendations : - Discharge patient to home. - Resume previous diet. - Continue present medications. - Await pathology results. - Repeat colonoscopy for surveillance based on pathology results. My findings are described in the full procedure note, which is enclosed. If I can be of further assistance, please feel free to contact me at . Sincerely, Hunter Ceja DO 10/16/2024 1:01:34 PM This report has been signed electronically. 10/16/24 1301 Date _ Hunter Ceja DO Cosigner Signature: Date (if indicated) CC: MANAGER HOUSE-Darrel Olson; Hunter Ceja DO ~ Date Dictated: 10/16/24 1153 Date Transcribed: Laundry Operator Finishing: RF Signed [facility]04-21-2025 Consult note [facility] Medical Records Department [address] [place] [address] Anesthesia Postop Eval I 10/16/24 1235 MR#: [id number] Acct: [id number] Name: KRYSTALMC GEE Rep #:[id number] : 2000 24 From: Pablo Leon PCP: FLORIDALMA Vasquez Status:REG SD C Y Race: C Location: [place] [address] Anesthesia: Postop Eval I Current Vital Signs [...] Postop Eval 1 completed: Yes 10/16/24 1236 > Date _ Pablo Lewis Signature: CC: ~ Signed [facility]04-21-2025 Consult note [facility] Medical Records Department [address] [place] [address] Anesthesia Postop Eval II 10/16/24 1235 MR#: [id number] Acct: [id number] Name: MC RICE Rep #:[id number] : 2000 24 From: Davin Sandhu MD PCP: FLORIDALMA Vasquez Status:REG SD C Y Race: C Location: [place] [address] Anesthesia Postop Eval I Sum Anesthesia Postop [...] 0 nausea: No Vomiting: No 10/16/24 1235 > Date _ Davin Lewis Signature: CC: ~ Signed [facility]04-21-2025 Consult note Author Davin Sandhu [facility] Note Date/Time October 16, 2024 10: 33am [facility] Medical Records Department [address] [place] [address] Pre-Anesthesia Evaluation 10/16/24 1032 MR#: [id number] Acct: [id number] Name: MC RICE Rep #:[id number] : 2000 24 From: Davin Sandhu MD PCP: Nick Olson, MANAGER HOUSE-C Status:REG SD C Y Race: C Location: [place] [address] ASA Classification* ASA Classification ASA Classification: 2 [...] Procedure(s): CSCOPE/EGD Anesthesia History Anesthesia History - head batcher: Anesthesia History - head batcher Hx Hospitalization No 10/10/24 16:27 Any Problems [...] take am of surgery PONV PONV - head batcher: PONV - head batcher Female No 10/10/24 16:27 HX of Motion Sickness No 10/10/24 16:27 HX of N/V After Surgery No 10/10/24 16:27 Non-Smoker Yes 10/10/24 16:27 Duration of Surgery greater No 10/10/24 16:27 than 60 minutes Number of Risk Factors 1 10/10/24 16:27 PONV Score Low Risk 10/10/24 16:27 Respiratory Assessment Respiratory Assessment - head batcher: Respiratory Tract Infection Hx - head batcher Hx Respiratory Tract Infection No 10/10/24 16:27 STOP Sleep Apnea STOP Sleep Apnea - head batcher: STOP Sleep Apnea - head batcher Hx Hypertension No 10/10/24 16:27 Hx Sleep [...] Tobacco Use History Tobacco Use History - head batcher: Tobacco Use History - head batcher Tobacco Use Smoking Status Never smoker 10/10/24 16:27 Hx Tobacco Use No 10/10/24 16:27 Years Smoking Packs Smoked per Day Smoking Cessation Date was within the last 15 years Hx Smoking Cessation Date Hx Smoking Cessation Counseling Hematologic Medial History Hematologic Hx - head batcher: Hematologic Medical Hx - veneer sorter Hx of Blood Transfusion No 10/10/24 16:27 [...] confused, unrespo /Reproduction History /Reproductive History - head batcher: /Reproductive Hx- head batcher Hx Now No 10/10/24 16:27 Gestational Age [...] Davin Sandhu MD > Date _ Davin Sandhu MD Cosigner Signature: Date CC: ~ Signed [facility] Work Phone: 1(297) 397-684404-21-2025 Procedure note [facility] Medical Records Department [address] [place] [address] Operative Report - CC Letter MR#: [id number] Acct: [id number] Name: MC RICE Rep #:[id number] : 2000 24 From: Hunter Ceja DO PCP: FLORIDALMA Vasquez Status:REG SD C 10/16/2024 Floridalma Vasquez Re : Upper GI endoscopy procedure for Mc Rice Dear Wesley This procedure was performed on Wednesday, October [...] signed electronically. 10/16/24 1221 Date _ Hunter Cottrelligner Signature: Date (if indicated) CC: MANAGER HOUSEElvaC Nick Olson; Hunter Ceja DO ~ Date Dictated: 10/16/24 1143 Date Transcribed: Laundry Operator Finishing: RF Signed [facility]04-21-2025 Procedure note [facility] Medical Records Department [address] [place] [address] EGD Report MR#: [id number] Acct: [id number] Name: MC RICE Rep #:[id number] : 2000 24 From: Hunter Ceja DO [...] pathology results. Procedure Code(s): --- Professional --- 62614, Small intestinal endoscopy, enteroscopy beyond second portion of duodenum, not including ileum; with biopsy, single or multiple CPT copyright 2021 [employer]. All rights reserved. The codes documented in this report are preliminary and upon inspector dials review may be revised to meet current compliance requirements. Hunter Ceja DO 10/16/2024 12:21:14 PM This report has been signed electronically. Number of Addenda: 0 Note Initiated On: 10/16/2024 11:43 AM 10/16/24 1221 Date _ Hunter Ceja DO Cosigner Signature: Date (if indicated) CC: FLORIDALMA Olson; Hunter Ceja DO ~ Date Dictated: 10/16/24 1143 Date Transcribed: Laundry Operator Finishing: SUSSY Signed [facility]04-21-2025 History and physical note [facility] Medical Records Department [address] [place] [address] History & Physical Exam 10/16/24 1132 MR#: [id number] Acct: [id number] Name: MC RICE Rep #:[id number] : 2000 24 From: Hunter Ceja DO PCP: FLORIDALMA Vasquez Status:REG SD C Location: [place] [address] HPI - General General Date of Admission: 10/16/24 Date of Service: 10/16/24 Chief Complaint: abdominal pain and crohn's disease HPI Narrative MC RICE, is a 24 M who presents for the evaluation of his crohns disease. *[facility] established 09.25.24 pt presents today to transfer care from [facility]. Pt has a long history of IBD and RA. Pt reports he was diagnosed with RA when he was 3 and is taking Rituximab infusions for this. Pt was diagnosed with IBD around 2018 and is on Mesalamine and Stelara Q5W. Pt reports his last colonoscopy was [id number]. Reports he has flares every few months. Ptreports daily nausea. States that he has alternating bowel movements and states that when he gets constipated that usually means he is about to have a flare. 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 -An upper and lower endoscopy to evaluate his upper lower GI tract for inflammatory bowel disease -MR enterography 10/16/24 1134 Cosigner Signature (if applicable): CC: FLORIDALMA Olson; Hunter Ceja DO~ Signed [facility]04-21-2025 [facility] Medical Records Department [address] [place] [address] History Physical Exam 10/16/24 1132 MR#: [id number] Acct: [id number] Name: MC RICE Rep #: [id number] : 2000 24 From: Hunter Ceja DO PCP: FLORIDALMA Vasquez Status:[facility] Location: [place] [address] HPI - General General Date of Admission: 10/16/24 Date of Service: 10/16/24 Chief Complaint: abdominal pain and crohn's disease HPI Narrative MC RICE, is a 24 M who presents for the evaluation of his crohns disease. *[facility] established 09.25.24 pt presents today to transfer care from [facility]. Pt has a long history of IBD and RA. Pt reports he was diagnosed with RA when he was 3 and is taking Rituximab infusions for this. Pt was diagnosed with IBD around 2018 and is on Mesalamine and Stelara Q5W. Pt reports his last colonoscopy was [id number]. Reports he has flares every few months. Pt reports daily nausea. States that he has alternating bowel movements and states that when he gets constipated that usually means he is about to have a flare. [facility] Medical History History of steroid therapy Dietary [...] at approximately 10 year (more content not included)...[facility]04-21-2025 Consult note [facility] Medical Records Department [address] [place] [address] Pre-Anesthesia Evaluation 10/16/24 1032 MR#: [id number] Acct: [id number] Name: MC RICE Rep #:[id number] : 2000 24 From: Davin Sandhu MD PCP: Nick Olson, MANAGER HOUSE-C Status:REG SD C Y Race: C Location: [place] [address] ASA Classification* ASA Classification ASA Classification: 2 [...] Procedure(s): CSCOPE/EGD Anesthesia History Anesthesia History - head batcher: Anesthesia History - head batcher Hx Hospitalization No 10/10/24 16:27 Any Problems [...] take am of surgery PONV PONV - head batcher: PONV - head batcher Female No 10/10/24 16:27 HX of Motion Sickness No 10/10/24 16:27 HX of N/V After Surgery No 10/10/24 16:27 Non-Smoker Yes 10/10/24 16:27 Duration of Surgery greater No 10/10/24 16:27 than 60 minutes Number of Risk Factors 1 10/10/24 16:27 PONV Score Low Risk 10/10/24 16:27 Respiratory Assessment Respiratory Assessment - head batcher: Respiratory Tract Infection Hx - head batcher Hx Respiratory Tract Infection No 10/10/24 16:27 STOP Sleep Apnea STOP Sleep Apnea - head batcher: STOP Sleep Apnea - head batcher Hx Hypertension No 10/10/24 16:27 Hx Sleep [...] Tobacco Use History Tobacco Use History - head batcher: Tobacco Use History - head batcher Tobacco Use Smoking Status Never smoker 10/10/24 16:27 Hx Tobacco Use No 10/10/24 16:27 Years Smoking Packs Smoked per Day Smoking Cessation Date was within the last 15 years Hx Smoking Cessation Date Hx Smoking Cessation Counseling Hematologic Medial History Hematologic Hx - head batcher: Hematologic Medical Hx - veneer sorter Hx of Blood Transfusion No 10/10/24 16:27 [...] confused, unrespo /Reproduction History /Reproductive History - head batcher: /Reproductive Hx- head batcher Hx Now No 10/10/24 16:27 Gestational Age [...] documented. 10/16/24 1033 > Date _ Davin Sandhu MD Cosigner Signature: Date CC: ~ Signed [facility]04-17-2025 Miscellaneous Notes* Nursing - Alina Snow RN [...] effectively manage anxiety response Description: REMINDER(s):Coping.Distraction therapy.Spirituality/ Temple/ [place].Social support. Outcome: Ongoing Problem: Falls, Risk of Goal: Absence of falls Outcome: Ongoing Problem: Pain - Acute Description: Presume pain is associated with diagnostic tests, diseases, infections, injuries, and surgeries. Goal: Reduced pain sensation Outcome: Ongoing documented [facility] Nurse Note* Nursing - Alina Snow RN - 10/12/2024 8:00 AM EDT Patient present for his Ruxience infusion. Denies of any signs and symptoms of recent illness or infection. Patient expresses understanding of signs and symptoms of infection, side effects of medication, and how/when to contact doctor with problems and concerns. Denies any signs and symptoms of reaction post ruxience infusion [facility]04-17-20[facility] Nurse Note* Nursing - Alina Snow RN - 10/12/2024 8:00 AM EDT Patient discharged home in stable condition with Mother. Mother and patient verbalized understanding of d/c instructions. Future appointments given to patient. [facility]04-17-2025 Plan of care note* Plan of Care - Alina Snow RN - 10/12/2024 8:00 AM EDT Problem: Anxiety, Patient/Family Goal: Able to effectively manage anxiety response Description: REMINDER(s):Coping.Distraction therapy.Spirituality/ Temple/ [place].Social support. Outcome: Ongoing Problem: Falls, Risk of Goal: Absence of falls Outcome: Ongoing Problem: Pain - Acute Description: Presume pain is associated with diagnostic tests, diseases, infections, injuries, and surgeries. Goal: Reduced pain sensation Outcome: Ongoing [facility]04-03-20[facility] Nurse Note* Penny Hardy RN - 09/28/2024 2:38 PM EDT Pt discharged home in stable condition with Mother. Mother and patient verbalized understanding of d/c instructions. Future appointments given to patient. [facility]04-03-20[facility] Miscellaneous Notes* Penny Hardy RN - 09/28/2024 [...] L shoulder and wrist. documented in this encounterGu[facility]04-[facility] History of Present illness Narrative* Alicia Bedolla APRN-INTERNATIONAL STUDENT COUNSELOR - 09/28/2024 9:00 AM EDT Infusion Center [...] biopsies performed by Madison Fagan MD at [facility] OR ESOPHAGOSCOPY N/A 11/24/2019 ENDOSCOPY (UPPER AND COLONOSCOPY) + biopsies performed by Remy Baptiste MD at [facility] OR ORTHOPEDIC SURGERY WI ANESTH,UGI ENDOSCOPY SHOULDER SURGERY Left UPPER GASTROINTESTINAL ENDOSCOPY N/A 04/11/2019 ENDOSCOPY UPPER (FLEXIBLE) + biopsies performed by Madison Fagan MD at [facility] OR WRIST GANGLION EXCISION Left WRIST SURGERY [...] for this patient was 10 minutes. Alicia Bedolla APRN-NANCY 09/28/2024 12:31 PM [1] No Known Allergies [...] Rfl: 5 vitamin D (ERGOCALCIFEROL) 1.25 MG (00031 UT) capsule, TAKE 1 CAPSULE BY MOUTH [...] Q6H, Dora Kate, DO, 650 mg at 09/28/24 0911 acetaminophen (TYLENOL) 325 MG tablet 650 mg, 650 mg, Oral, Once PRN, Rashaun Kateyn C, DO cetirizine (ZyrTEC) tablet 10 mg, 10 mg, Oral, Once PRN, Rashaun Kateyn C, DO diphenhydrAMINE (BENADRYL) capsule 50 mg, 50 mg, Oral, Once PRN, Dora Kate C, DO diphenhydrAMINE (BENADRYL) injection 50 mg, 50 mg, Intramuscular, Once PRN, Dora Kate, DO EPINEPHrine 1 mg/mL injection 0.5 mg, 0.5 mg, Intramuscular, PRN, Dora Kate, DO methylPREDNISolone (SOLU-Medrol) in sterile water IV High CONC 125 mg, 125 mg, Intravenous, Once PRN, Dora Kate C, DO lidocaine (LMX) 4 % kit 5 g, 1 Each, Topical, Once, Dora Kate, DO NaCl 0.9% PosiFlush 2 mL, 2 mL, Intravenous, PRN, Rashaun Kateyn C, DO, Last Rate: 0 mL/hr at 09/28/24 1035, 2 mL at 09/28/24 1035 NaCl 0.9% PosiFlush 10 mL, 10 mL, Intravenous, PRN, Rashaun Kateyn C, DO NaCl 0.9 % IV Flush bag 100 mL, 100 mL, Intravenous, PRN, Rashaun Kateyn C, DO NaCl 0.9% IV 1,000 mL, 1,000 mL, Intravenous, Continuous, Dora Kate, DO, Last Rate: 1,000 mL/hr at 09/28/24 0929, 1,000 mL at 09/28/24 09 documented in this encounterGu[facility]04-[facility]25 Nurse Note* Nursing - Penny Little RN [...] 5/10 today to L shoulder and wrist. [facility]03-31[facility] Evaluation note* Diagnosis Onset Date Resolution Status Admit Date Crohn disease acute September 25, 2024 8:38am [facility] Work Phone: 1(978) 748-388403-31-2025 Evaluation note* Diagnosis Onset Date Resolution Status Admit Date Crohn disease acute September 25, 2024 8:38am Crohn disease acute October 16, 2024 10:28am [facility] Work Phone: 1(273) 441-129510-03-2024 History of Present illness Narrative* Orin Wilhelm APRN-NANCY - 03/30/2024 8:30 AM EDT Infusion Center [...] biopsies performed by Madison Fagan MD at [facility] OR ESOPHAGOSCOPY N/A 11/24/2019 ENDOSCOPY (UPPER AND COLONOSCOPY) + biopsies performed by Remy Baptiste MD at [facility] OR ORTHOPEDIC SURGERY WI ANESTH,UGI ENDOSCOPY SHOULDER SURGERY Left UPPER GASTROINTESTINAL ENDOSCOPY N/A 04/11/2019 ENDOSCOPY UPPER (FLEXIBLE) + biopsies performed by Madison Fagan MD at [facility] OR WRIST GANGLION EXCISION Left WRIST SURGERY [...] Rfl: 5 vitamin D (ERGOCALCIFEROL) 1.25 MG (31915 UT) capsule, TAKE 1 CAPSULE BY MOUTH EVERY 7 DAYS, Disp: 12 Capsule, Rfl: 0 promethazine (PHENERGAN) 12.5 MG tablet, TAKE 1 TABLET BY MOUTH EVERY 6 HOURS NEEDED FOR NAUSEA,Disp: 30 Tablet, Rfl: 3 Current Facility-Administered Medications: riTUXimab-pvvr (RUXIENCE) 783.6 mg in NaCl 0.9% 195.9 mL infusion, 375 mg/m2/DOSE, Intravenous, Once, Kadi Anderson R, SALES APPRENTICE-INTERNATIONAL STUDENT COUNSELOR acetaminophen (TYLENOL) 325 MG tablet 650 mg, 650 mg, Oral, Q6H, Dora Kate, , 650 mg at 03/30/24 0848 acetaminophen (TYLENOL) 325 MG tablet 650 mg, 650 mg, Oral, Once PRN, Dora Kate DO cetirizine (ZyrTEC) tablet 10 mg, 10 mg, Oral, Once PRN, Dora Kate, diphenhydrAMINE (BENADRYL) capsule 50 mg, 50 mg, Oral, Once PRN, Dora Kate, diphenhydrAMINE (BENADRYL) injection 50 mg, 50 mg, Intramuscular, Once PRN, Dora Kate C, DO EPINEPHrine 1 mg/mL injection 0.5 mg, 0.5 mg, Intramuscular, PRN, Rashaun Kateyn C, DO methylPREDNISolone (SOLU-Medrol) in sterile water IV High CONC 125 mg, 125 mg, Intravenous, Once PRN, Rashaun Kateyn C, DO lidocaine (LMX) 4 % kit 5 g, 1 Each, Topical, Once, Dora aKte, DO NaCl 0.9% PosiFlush 2 mL, 2 mL, Intravenous, PRN, Rashaun Kateyn C, DO, Last Rate: 0 mL/hr at 03/30/24 0906, 2 mL at 03/30/24 0906 NaCl 0.9% PosiFlush 10 mL, 10 mL, Intravenous, PRN, Rashaun Kateyn C, DO NaCl 0.9 % IV Flush bag 100 mL, 100 mL, Intravenous, PRN, Rashaun Kateyn C, DO Objective: Vitals: 03/30/24 0834 BP: 130/67 [...] Chow 03/30/2024 9:29 AM documented in this encounterGu[facility]10-[facility]-2024 Miscellaneous Notes* Beckie Clemente RN - 03/30/2024 [...] appointments given to patient. documented in this encounterGu[facility]10-03-2024 Nurse Note* Beckie Clemente RN - 03/30/2024 8:30 AM EDT Patient present for his second ruxience infusion. Denies of any signs and symptoms of infection. Patient and parent express understanding of signs and symptoms of infection, side effects of medication, and how/when to contact doctor with problems and concerns. Denies any signs and symptoms of reaction post ruxience infusion. [facility]10-03-[facility] Nurse Note* Beckie Clemente RN - 03/30/2024 8:30 AM EDT Patient discharged home in stable condition. Patient expresses verbal understanding of discharge instructions. Follow-up appointments given to patient. [facility]09-19-[facility] History of Present illness Narrative* Nick, Michael G, SALES APPRENTICE-INTERNATIONAL STUDENT COUNSELOR - 03/16/2024 8:30 AM EDT Infusion Center [...] biopsies performed by Madison Fagan MD at [facility] OR ESOPHAGOSCOPY N/A 11/24/2019 ENDOSCOPY (UPPER AND COLONOSCOPY) + biopsies performed by Remy Baptiste MD at [facility] OR ORTHOPEDIC SURGERY WI ANESTH,UGI ENDOSCOPY SHOULDER SURGERY Left UPPER GASTROINTESTINAL ENDOSCOPY N/A 04/11/2019 ENDOSCOPY UPPER (FLEXIBLE) + biopsies performed by Madison Fagan MD at [facility] OR WRIST GANGLION EXCISION Left WRIST SURGERY [...] Rfl: 5 vitamin D (ERGOCALCIFEROL) 1.25 MG (37393 UT) capsule, TAKE 1 CAPSULE BY MOUTH EVERY 7 DAYS, Disp: 12 Capsule, Rfl: 0 promethazine (PHENERGAN) 12.5 MG tablet, TAKE 1 TABLET BY MOUTH EVERY 6 HOURS NEEDED FOR NAUSEA,Disp: 30 Tablet, Rfl: 3 Current Facility-Administered Medications: riTUXimab-pvvr (RUXIENCE) 1,000 mg in NaCl 0.9% 250 mL infusion, 1,000 mg, Intravenous, Once, Kadi Anderson, FELIPE-NANCY acetaminophen (TYLENOL) 325 MG tablet 650 mg, 650 mg, Oral, Q6H, Dora Kate, diphenhydrAMINE (BENADRYL) capsule 25 mg, 25 mg, Oral, Once, Dora Kate, methylPREDNISolone (Solu-MEDROL) injection 100 mg, 100 mg, Intravenous, Once, Dora Kate, acetaminophen (TYLENOL) 325 MG tablet 650 mg, 650 mg, Oral, Once PRN, Droa Kate, cetirizine (ZyrTEC) tablet 10 mg, 10 mg, Oral, Once PRN, Dora Kate, diphenhydrAMINE (BENADRYL) capsule 50 mg, 50 mg, Oral, Once PRN, Dora Kate, diphenhydrAMINE (BENADRYL) injection 50 mg, 50 mg, Intramuscular, Once PRN, Dora Kate, EPINEPHrine 1 mg/mL injection 0.5 mg, 0.5 mg, Intramuscular, PRN, Dora Kate, methylPREDNISolone (SOLU-Medrol) in sterile water IV High CONC 125 mg, 125 mg, Intravenous, Once PRN, Dora Kate, lidocaine (LMX) 4 % kit 5 g, 1 Each, Topical, Once, Dora Kate, NaCl 0.9% PosiFlush 2 mL, 2 mL, Intravenous, PRN, Dora Kate, NaCl 0.9% PosiFlush 10 mL, 10 mL, Intravenous, PRN, Dora Kate C, DO NaCl 0.9 % IV Flush bag 100 mL, 100 mL, Intravenous, PRN, Dora Kate C, DO Objective: Vitals: 03/16/24 0830 BP: 135/81 [...] Fontaine 03/16/2024 8:49 AM documented in [facility] encounter[facility] [id number] Miscellaneous Notes* Nursing - Alina Snow RN [...] response Description: REMINDER(s): Coping. Distraction therapy. Spirituality/ Temple/ [place]. Social support. Outcome: Ongoing documented in this encounterGu[facility]09-19-2024 Nurse Note* Naz - Alina Snow RN - 03/16/2024 8:30 [...] infusion though it has been 5 years. [facility]09-19-[facility] Nurse Note* Nursing - Alina Snow RN - 03/16/2024 8:30 AM EDT Patient discharged home with Mother in stable condition. Patient expresses verbal understanding of discharge instructions. Follow-up appointments given to patient. [facility]09-19-[facility]24 Plan of care note* Plan of Care - Alina Snow RN - 03/16/2024 8:30 AM EDT Problem: Falls, Risk of Goal: Absence of falls Outcome: Ongoing Problem: Infection Risk Goal: Absence of infection signs and symptoms Outcome: Ongoing Problem: Anxiety, Patient/Family Goal: Able to effectively manage anxiety response Description: REMINDER(s): Coping. Distraction therapy. Spirituality/ Temple/ [place]. Social support. Outcome: Ongoing [facility]05-06-2024 NotePROCEDURE: Intra-articular steroid injection, fluoroscopic-guided. CLINICAL HISTORY: [...] the procedure was reported as a 2-3. [facility] [id number] NotePROCEDURE: Intra-articular steroid injection, fluoroscopic-guided. CLINICAL HISTORY: [...] Signed by: Dr. Kyra Parrish at 11/01/2023 10:13[facility] 08-31-20[facility] NotePROCEDURE: Fluoroscopically guided intra-articular steroid. CLINICAL [...] well and no immediate complications were encountered. [facility] [id number] NotePROCEDURE: Right elbow steroid injection. CLINICAL HISTORY: [...] left the interventional suite in good condition. [facility] RADIOLOGYConsult note Author Davin Sandhu [facility] Note Date/Time October 16, 2024 12: 35pm [facility] Medical Records Department [address] [place] [address] Anesthesia Postop Eval II 10/16/24 1235 MR#: [id number] Acct: [id number] Name: MC RICE Rep #:[id number] : 2000 24 From: Davin Sandhu MD PCP: NICOLLE VasquezC Status:REG SD C Y Race: C Location: [place] [address] Anesthesia Postop Eval I Sum Anesthesia Postop [...] Davin Sandhu MD > Date _ Davin Sandhu MD Cosign Signature: Date CC: ~ Signed [facility] Work Phone: Consult note Author Pablo Leon [facility] Note Date/Time October 16, 2024 12: 36pm [facility] Medical Records Department [address] [place] [address] Anesthesia Postop Eval I 10/16/24 1235 MR#: [id number] Acct: [id number] Name: MC RICE Rep #:[id number] : 2000 24 From: Pablo Leon PCP: Nick Olson MANAGER HOUSE-C Status:REG SD C Y Race: C Location: [place] [address] Anesthesia: Postop Eval I Current Vital Signs [...] Pablo Lewis Signature: Date CC: ~ Signed [facility] Work Phone: Evaluation note* 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, chronic or unspecified documented in this encounter [facility]* 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, 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 or 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 Vitamin D deficiency Unspecified vitamin D deficiency documented [facility] this encounter [facility]* 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, 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 Arthritis of right elbow Unspecified arthropathy, upper arm documented in this encounter [facility]* Diagnosis IBD (inflammatory bowel disease) Other and unspecified noninfectious gastroenteritis and colitis Elevated liver enzymes Nonspecific elevation of levels of transaminase or lactic acid dehydrogenase (LDH) documented in this encounter [facility] note* Diagnosis Rheumatoid arthritis of multiple sites with negative rheumatoid factor Arthritis of right elbow Unspecified arthropathy, upper arm documented in this encounter [facility] note* Diagnosis Rheumatoid arthritis of multiple sites with negative rheumatoid factor halfway current use of 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 documented in this encounter [facility] note* Diagnosis halfway (current) use of non-steroidal anti-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 (nsaid)- Primary halfway current use of 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 Rheumatoid arthritis of multiple sites with negative rheumatoid factor Vitamin D deficiency Unspecified vitamin D deficiency documented in this encounter [facility] note* Diagnosis halfway (current) use of non-steroidal anti-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 (nsaid)- Primary halfway current use of 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 Rheumatoid arthritis of multiple sites with negative rheumatoid factor Vitamin D deficiency Unspecified vitamin D deficiency documented in this encounter [facility] note* Diagnosis halfway (current) use of non-steroidal anti-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 (nsaid)- Primary halfway current use of 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 Rheumatoid arthritis of multiple sites with negative rheumatoid factor Vitamin D deficiency Unspecified vitamin D deficiency documented in this encounter [facility] noteNo assessment information available [facility] Work Phone: History and physical note Author Hunter Ceja [facility] Note Date/Time October 16, 2024 11: 34am [facility] Medical Records Department [address] [place] [address] History & Physical Exam 10/16/24 1132 MR#: [id number] Acct: [id number] Name: RICEMC AKHTAR GERARD Rep #:[id number] : 2000 24 From: Hunter Ceja DO PCP: FLORIDALMA Vasquez Status:REG SD C Location: [place] [address] HPI - General General Date of Admission: 10/16/24 Date of Service: 10/16/24 Chief Complaint: abdominal pain and crohn's disease HPI Narrative MC RICE, is a 24 M who presents for the evaluation of his crohns disease. *I established 09.25.24 pt presents today to transfer care from [facility]. Pt has a long history of IBD and RA. Pt reports he was diagnosed with RA when he was 3 and is taking Rituximab infusions for this. Pt was diagnosed with IBD around 2018 and is on Mesalamine and Stelara Q5W. Pt reports his last colonoscopy was [id number]. Reports he has flares every few months. Ptreports daily nausea. States that he has alternating bowel movements and states that when he gets constipated that usually means he is about to have a flare. 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 Ceja. Return back to ED symptoms change or worsen. Take all of your antibiotics.[facility] Work Phone: Reason for referral (narrative)No reason for referral information availableWMercy Health [facility] Work Phone: Reason for visit Narrative* Referral (Routine) - Closed Specialty Diagnoses / Procedures Referred By Contact Referred To Contact Radiology / Interventional Radiology Diagnoses Rheumatoid arthritis without rheumatoid factor, multiple sites Primary osteoarthritis, right elbow Procedures CHG FLUOROSCOPIC GUIDANCE NEEDLE PLACEMENT ADD ON WI ARTHROCENTESIS ASPIR&/INJ INTERM JT/BURS W/O US IR STEROID INJECTION Dora Ktae, [place] [address] Radiology [facility] Floor [address] [place] [address] Referral ID Status Reason Start Date Expiration Date Visits Re quested Visits Authorized [id number] Closed 11/01/2023 11/26/2023 1 1 [facility] Narrative* Episode Based Medications (Routine) - Authorized Specialty Diagnoses / Procedures Referred By Contac t Referred To Contact Infusion Therapy 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-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 (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) 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 Rheumatoid arthritis of multiple sites with negative rheumatoid factor Vitamin D deficiency Procedures WI INJ RUXIENCE, 10 MG /td Dora Kate, [place] [address] Phone: tel: fax: Referral ID Status Reason Start Date Expiration Date V isits Requested Visits Authorized [id number] Authorized 09/04/2024 09/04/2025 8 8 [facility] Summary Purpose Family History Relationship Condition Age at Onset Recorded Date/T ezra sister Anxiety Unknown mother Arthritis Unknown grandmother Arthritis Unknown Autoimmune disorder Unknown Hypertension Unknown Hyperlipidemia Unknown grandfather Chronic obstructive pulmonary disease Unk nown aunt Malignant neoplasm of breast Unknown Depression Unknown Advance Directives Advance Directive Response Recorded Date/ Time Living Will No October 10, 2024 4:27pm Do you have a Healthcare Power of Local Announcer? No October 10, 2024 4:27pm Advance Directive Response Recorded Date/ Time Do you have a Healthcare Power of Local Announcer? No April 18, 2025 6:09pm Chief Complaint and Reason for Visit Chief [...] Crohn disease October 16, 2024 10: 28am Chief Complaint Admit Date abd pain April 18, 2025 6 :43pm Additional Source Comments (unrecognized sect ion and content) No Status Records FoundNo Status Records FoundNo Status Records FoundNo Status Records FoundNo Status Records FoundNo Status Records FoundNo Status Records Found INFORMATION SOURCE (unrecogn ized section and content) DATE CREATED AUTHOR 12/16/2017 [facility] DATE CREATED AUTHOR AUTHOR'S ORGANIZ ATION 12/22/[address] [facility] DATE CREATED AUTHOR AUTHOR'S ORGANIZ ATION 01/19/2020 [facility] DATE CREATED AUTHOR AUTHOR'S ORGANIZ ATION 10/23/2021 [facility] DATE CREATED AUTHOR AUTHOR'S ORGANIZ ATION 10/25/2024 [facility] DATE CREATED AUTHOR AUTHOR'S ORGANIZ ATION 04/22/2025 [facility] DATE CREATED AUTHOR AUTHOR'S ORGANIZ ATION 05/03/[address] [facility] Care Teams (unrecognized sec tion and content) Wire Transfer Clerk Relationship Specialty Start Date End Date Arlette Le DO [address] [place], [place] [phone] PCP - General Family Medicine 04/11/19 [employer] SALES APPRENTICE-INTERNATIONAL STUDENT COUNSELOR ONE [facility] [address] Nurse Practitioner Interventional Radiology 02/03/18 Wire Transfer Clerk Relationship Specialty Start Date End Date Arlette Le DO [address] [place] [address] PCP - General Family Medicine 04/11/19 [employer] SALES APPRENTICE-INTERNATIONAL STUDENT COUNSELOR [place] [place] [address] Nurse Practitioner Interventional Radiology 02/03/18 Wire Transfer Clerk Relationship Specialty Start Date End Date Nick Olson APRN-INTERNATIONAL STUDENT COUNSELOR [address] [place] [address] PCP - General Family Medicine 08/27/22 [employer] SALES APPRENTICE-INTERNATIONAL STUDENT COUNSELOR [facility] [place] [address] Nurse Practitioner Interventional Radiology 02/03/18 Wire Transfer Clerk Relationship Specialty Start Date End Date Nick Olson, SALES APPRENTICE-INTERNATIONAL STUDENT COUNSELOR [address] [place], [place] [phone] PCP - General Family Medicine 08/27/22 [employer], SALES APPRENTICE-INTERNATIONAL STUDENT COUNSELOR [facility] [place] [phone] Nurse Practitioner Interventional Radiology 02/03/18 Wire Transfer Clerk Relationship Specialty Start Date End Date Nick Olson SALES APPRENTICE-INTERNATIONAL STUDENT COUNSELOR [address] [place] [address] PCP - General Family Medicine 08/27/22 [employer], SALES APPRENTICE-INTERNATIONAL STUDENT COUNSELOR [facility] [place] [address] Nurse Practitioner Interventional Radiology 02/03/18 Wire Transfer Clerk Relationship Specialty Start Date End Date Nick Olson, SALES APPRENTICE-INTERNATIONAL STUDENT COUNSELOR [address] [place] [address] PCP - General Family Medicine 08/27/22 [employer], SALES APPRENTICE-INTERNATIONAL STUDENT COUNSELOR [facility] [place] [phone] Nurse Practitioner Interventional Radiology 02/03/18 Wire Transfer Clerk Relationship Specialty Start Date End Date Nick Olson, SALES APPRENTICE-INTERNATIONAL STUDENT COUNSELOR [address] [place] [address] PCP - General Family Medicine 08/27/22 [employer], SALES APPRENTICE-INTERNATIONAL STUDENT COUNSELOR [facility] [place] [phone] Nurse Practitioner Interventional Radiology 02/03/18 Wire Transfer Clerk Relationship Specialty Start Date End Date Nick Olson, SALES APPRENTICE-INTERNATIONAL STUDENT COUNSELOR [address] [place] [address] PCP - General Family Medicine 08/27/22 [employer] SALES APPRENTICE-[place]ATIONAL [place] [address] Nurse Practitioner Interventional Radiology 02/03/18 Team Status: Active Member Role Status Dates Nick Olson NP, MANAGER HOUSE-C Primary Care Provider Active Team Status: Inactive Member Role Status Dates Dr. Hunter Ceja DO Attending Provider Active Start: September 25, 2024 End: September 25, 2024 Nick Olson NP, MANAGER HOUSE-C Primary Care Provider Active Start: September 25, 2024 End: September 25, 2024 Nick Olson NP, MANAGER HOUSE-C Referring Provider Active Start: September 25, 2024 End: September 25, 2024 Team Status: Inactive Member Role Status Dates Nick Olson NP, MANAGER HOUSE-C Primary Care Provider Active Start: September 25, 2024 End: September 25, 2024 Dr. Hunter Ceja DO Attending Provider Active Start: September 25, 2024 End: September 25, 2024 Dr. Hunter Ceja DO Referring Provider Active Start: September 25, 2024 End: September 25, 2024 Wire Transfer Clerk Relationship Specialty Start Date End Date Nick Olson SALES APPRENTICE-INTERNATIONAL STUDENT COUNSELOR [address] [place] [address] PCP - General Family Medicine 08/27/22 [employer] APRN-[place]ATIONAL [place] [address] Nurse Practitioner Interventional Radiology 02/03/18 Team Status: Inactive Member Role Status Dates Nick Olson NP, MANAGER HOUSE-C Primary Care Provider Active Start: October 04, 2024 End: October 04, 2024 Dr. Hunter Ceja DO Attending Provider Active Start: October 04, 2024 End: October 04, 2024 Dr. Hunter Ceja DO Referring Provider Active Start: October 04, 2024 End: October 04, 2024 Wire Transfer Clerk Relationship Specialty Start Date End Date Nick Olson, SALES APPRENTICE-INTERNATIONAL STUDENT COUNSELOR [address] [place] [address] [place] [address] PCP - General Family Medicine 08/27/22 [employer], SALES APPRENTICE-INTERNATIONAL STUDENT COUNSELOR [facility] [place] [address] Nurse Practitioner Interventional Radiology 02/03/18 Team Status: Inactive Member Role Status Dates Nick Olson MANAGER HOUSE, MANAGER HOUSE-C Primary Care Provider Active Start: October 16, 2024 End: October 16, 2024 Nick Olson NP, MANAGER HOUSE-C Referring Provider Active Start: October 16, 2024 End: October 16, 2024 Dr. Hunter Ceja DO Attending Provider Active Start: October 16, 2024 End: October 16, 2024 Team Status: Active Member Role Status Dates Nick Olson MANAGER HOUSE, MANAGER HOUSE-C Primary Care Provider Active Start: October 16, 2024 Nick Olson NP, MANAGER HOUSE-C Referring Provider Active Start: October 16, 2024 Dr. Hunter Ceja DO Attending Provider Active Start: October 16, 2024 Dr. Hunter Ceja DO Other Provider Active St art: October 16, 2024 Team Status: Active Member Role/Relationship Status Dates Nick Olson MANAGER HOUSE, MANAGER HOUSE-C Primary care physician Active Team Status: Inactive Member Role/Relationship Status Dates Nick Olson MANAGER HOUSE, MANAGER HOUSE-C Primary care physician Active Start: April 18, 2025 End: April 18, 2025 Dr. Kareem López DO Attending physician Active Start: April 18, 2025 End: April 18, 2025 Dr. 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 (nsaid) halfway current use of 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 Rheumatoid arthritis of multiple sites with negative rheumatoid factor Vitamin D deficiency Dora Kate, [place] [address] Phone: tel: fax: Referral ID Status Reason Start Date Expiration Date V isits Requested Visits Authorized [id number] Authorized 02/17/2024 08/28/2024 365 365 Specialty Diagnoses / Procedures Referred By Contac t Referred To Contact Infusion Therapy 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 anti-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 (nsaid) 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 [employer] provides no warranty or guarantee of the accuracy or completeness of information in this document.
[2025-06-26] MEDS: Lactated Ringers 1,000 ML 15 ML IV (06:12)
--- NOTE | 2025-06-26 06:19 | PCM.PRE.AN2 ---
ASA Classification* ASA Classification ASA Classification: 2 Assessment & Plan Anesthesia* Anesthesia Assessment Anesthesia Assessment: Discussed sedation and/or anesthesia options, risks, benefits, and alternatives with patient/parents/legal guardian/POA. Questions invited. The patient/parents/legal guardian/POA seems to understand and agrees to proceed with anesthesia plan. Reviewed the physical assessment, medical history, allergy history and patient home medications list prior to surgery/procedure/anesthetic and documented any changes. Performed airway and anesthesia risk assessments. Anesthesia Type Anesthesia Type: MAC History Source History Obtained from:: Patient and Chart Anesthesia Focused Assessment* Temperature: 99 F Pulse Rate: 84 Blood Pressure: 117/83 Respiratory Rate: 18 Pulse Ox: 100 Oxygen Delivery Method: Room Air Airway Assessment Mouth opens: >3 cm Mallampati Score: II Teeth Condition: Intact Neck Range of motion (ROM): Full ROM Labs Anesthesia Preop lab: CBC WBC, (4.4-11.0) 5.7 K/mm3 05/23/25, 08:34 RBC, (4.6-6.2) 5.06 M/mm3 05/23/25, 08:34 Hgb, (13.0-16.5) 15.2 g/dL 05/23/25, 08:34 Hct, (40-54) 45.3 % 05/23/25, 08:34 Plt Count, (150-450) 222 K/mm3 05/23/25, 08:34 CHEMISTRY Potassium, (3.3-5.1) 4.0 mmol/L 05/23/25, 08:34 Sodium, (133-145) 140 mmol/L 05/23/25, 08:34 Magnesium, (1.5-2.2) 2.1 mg/dL 05/23/25, 08:34 Phosphorus, (2.7-4.5) 2.7 mg/dL 05/23/25, 08:34 BUN, (4-19) 9 mg/dL 05/23/25, 08:34 Creatinine, (0.70-1.20) 1.10 mg/dL 05/23/25, 08:34 Glucose, (70-99) 87 mg/dL 05/23/25, 08:34 TSH, (0.300-4.200) 0.283 uIU/mL L 09/25/24, 09:51 COAG Pre-Assessment Diagnosis/Proposed Procedure Planned Operative Procedure(s): cscope Anesthesia History 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 When Was Last Pacemaker Check QUESTION #4 FULL TEXT: You/Your Family Experience fever (hyperthermia) with Anesthesia Last Oral Intake Last Oral intake: Last Oral Intake NPO since 02:30 06/26/25 05:58 Meds taken in AM with sips of No 06/26/25 05:58 water? Meds patient instructed to take am of surgery PONV PONV - company miner blasting: PONV - company miner blasting Female No 06/20/25 11:48 HX of Motion Sickness No 06/20/25 11:48 HX of N/V After Surgery No 06/20/25 11:48 Non-Smoker Yes 06/20/25 11:48 Duration of Surgery greater No 06/20/25 11:48 than 60 minutes Number of Risk Factors 1 06/20/25 11:48 PONV Score Low Risk 06/20/25 11:48 Height & Weight Height & Weight: Anesthesia: Height & Weight Height 6 ft 1 in 06/26/25 05:58 Weight: 76 kg 06/26/25 05:58 Body Mass Index (BMI) 22.1 06/26/25 05:58 Respiratory Assessment Respiratory Assessment - company miner blasting: Respiratory Tract Infection Hx - company miner blasting Hx Respiratory Tract Infection No 06/20/25 11:48 STOP Sleep Apnea STOP Sleep Apnea - company miner blasting: STOP Sleep Apnea - company miner blasting Hx Hypertension No 06/20/25 11:48 Hx Sleep Apnea No 06/20/25 11:48 CPAP BIPAP Do you snore loudly (louder No 06/20/25 11:48 than talking or can be heard Do you often feel tired/ No 06/20/25 11:48 fatigued/ sleepy during daytime? Has anyone observed you stop No 06/20/25 11:48 breathing during sleep? STOP Results Negative 06/20/25 11:48 QUESTION #5 FULL TEXT : Do you snore loudly (louder than talking or can be heard through closed doors)? Tobacco Use History Tobacco Use History - company miner blasting: Tobacco Use History - company miner blasting Tobacco Use Smoking Status Never smoker 06/20/25 11:48 Hx Tobacco Use No 06/20/25 11:48 Years Smoking Packs Smoked per Day Smoking Cessation Date was within the last 15 years Hx Smoking Cessation Date Hx Smoking Cessation Counseling Hematologic Medial History Hematologic Hx - company miner blasting: Hematologic Medical Hx - residential living assistant Hx of Blood Transfusion No 06/20/25 11:48 Hx of Transfusion in last 3 No 06/20/25 11:48 Months Date of Last Transfusion (if within last 3 months) Ever experience any problems No 06/20/25 11:48 with transfusion(s)? Specify any problems Hx of Preganancy in last 3 N/A 06/20/25 11:48 Months Nurse Filling Out Transfusion NBUCHER 06/20/25 11:48 & Questions: Date: 06/20/25 06/20/25 11:48 Time: 11:49 06/20/25 11:48 Patient unable to answer at this time (ie. confused, unrespo /Reproduction History /Reproductive History - company miner blasting: /Reproductive Hx- company miner blasting Hx Now No 06/20/25 11:48 Gestational Age (in weeks): EDC: Hx Hx Para Hx Section SAB No 06/20/25 11:48 Does the father of the baby or his family experience fever w Father of the baby Malignant Hypertension history comment Active Medications Active Medications: Current Medications Generic Name Dose Route Start Last Admin Trade Name Freq PRN Reason Stop Dose Admin Lactated Ringer's 1,000 mls @ 15 mls/hr 06/26/25 06:00 06/26/25 06:12 IV 15 mls/hr .Q48H SAL Administration PFSH Medical History History of steroid therapy Dietary restriction History of colitis History of Crohn's disease History of IBS Gastric reflux Non-smoker Hx of fracture of arm History of ganglion cyst Rheumatoid arthritis Home Medications ?Medication ?Instructions ?Recorded ?Last Taken ?Type cetirizine 10 mg capsule (Zyrtec) 10 mg PO QDAY 09/25/24 06/25/25 History cholecalciferol (vitamin D3) 1,250 1,250 mcg PO QWEEK 09/25/24 06/25/25 History mcg (50,000 unit) capsule nabumetone 500 mg tablet 1,000 mg PO QDAY 09/25/24 06/25/25 History omeprazole 20 mg capsule,delayed 20 mg PO QDAY 09/25/24 06/25/25 History release promethazine 12.5 mg tablet 12.5 mg PO Q6H PRN nausea and 09/25/24 Unknown History vomiting rituximab 10 mg/mL See Rx Instructions .Route .COMPLEX 09/25/24 05/28/25 History concentrate,intravenous mesalamine 0.375 gram 0.75 g (2 x 0.375 gram) PO TID 11/17/24 06/25/25 Rx capsule,extended release 24 hr #540 caps ustekinumab 90 mg/mL subcutaneous 90 mg subcut Q5W #1 mL 05/23/25 06/10/25 Rx syringe (Stelara) Allergy/AdvReac Type Severity Reaction Status Date / Time No Known Allergies Allergy Verified 06/26/25 05:58 Family History Sister Anxiety Mother Arthritis Grandmother Arthritis Autoimmune disorder Hypertension Hyperlipemia Grandfather COPD (chronic obstructive pulmonary disease) Aunt Breast cancer Depression Surgical History History of surgery on arm History of shoulder surgery History of esophagogastroduodenoscopy (EGD) Hx of colonoscopy Social History Smoking Status: Never smoker alcohol intake: never substance use type: marijuana what type of physical activity do you participate in: other details: physical therapy Review of Systems (Anesthesia) ROS Narrative System reviewed and no additional complaints, except as documented.
--- NOTE | 2025-06-26 06:27 | PCM.HP.STD ---
HPI - General General Date of Admission: 06/26/25 Date of Service: 06/26/25 Chief Complaint: Crohns HPI Narrative DIEGO RICE, is a 24 M who presents [ Chief Complaint: ER follow-up for abdominal pain and stool impaction management The patient presents for follow-up after an emergency room (ER) visit last month for severe abdominal pain and persistent vomiting, initially thought to be a Crohn?s disease flare. During the episode, experienced hand numbness and inability to move the hands while in the ambulance/hospital, with associated cramping. Reports prior tingling in hands but not immobility. A computed tomography (CT) scan reportedly showed inflammation around a stool ball located behind a narrowing. Completed a course of antibiotics prescribed after the ER call. Infusion therapy was delayed due to antibiotics but resumed last week; another infusion is scheduled next week, with subsequent dosing every six months. Prior white blood cell count was elevated; today?s plan includes blood work. Discussion covered that vomiting can deplete electrolytes (calcium, potassium, magnesium), causing tetany symptoms in hands and feet. Plans discussed for endoscopic removal of the stool ball via dilation; patient asked about recovery and was told it would be similar to colonoscopy, same-day, but longer in duration. Surgery would be the alternative, but is to be avoided if possible in Crohn?s disease. Pre-procedure lubrication with mineral oil and olive oil at night for two weeks was recommended. Follow-up timing of four months was set. [facility] Medical History History of steroid therapy Dietary restriction History of colitis History of Crohn's disease History of IBS Gastric reflux Non-smoker Hx of fracture of arm History of ganglion cyst Rheumatoid arthritis Home Medications ?Medication ?Instructions ?Recorded ?Last Taken ?Type cetirizine 10 mg capsule (Zyrtec) 10 mg PO QDAY 09/25/24 06/25/25 History cholecalciferol (vitamin D3) 1,250 1,250 mcg PO QWEEK 09/25/24 06/25/25 History mcg (50,000 unit) capsule nabumetone 500 mg tablet 1,000 mg PO QDAY 09/25/24 06/25/25 History omeprazole 20 mg capsule,delayed 20 mg PO QDAY 09/25/24 06/25/25 History release promethazine 12.5 mg tablet 12.5 mg PO Q6H PRN nausea and 09/25/24 Unknown History vomiting rituximab 10 mg/mL See Rx Instructions .Route .COMPLEX 09/25/24 05/28/25 History concentrate,intravenous mesalamine 0.375 gram 0.75 g (2 x 0.375 gram) PO TID 11/17/24 06/25/25 Rx capsule,extended release 24 hr #540 caps ustekinumab 90 mg/mL subcutaneous 90 mg subcut Q5W #1 mL 05/23/25 06/10/25 Rx syringe (Stelara) Allergy/AdvReac Type Severity Reaction Status Date / Time No Known Allergies Allergy Verified 06/26/25 05:58 Family History Sister Anxiety Mother Arthritis Grandmother Arthritis Autoimmune disorder Hypertension Hyperlipemia Grandfather COPD (chronic obstructive pulmonary disease) Aunt Breast cancer Depression Surgical History History of surgery on arm History of shoulder surgery History of esophagogastroduodenoscopy (EGD) Hx of colonoscopy Social History Smoking Status: Never smoker alcohol intake: never substance use type: marijuana what type of physical activity do you participate in: other details: physical therapy ROS Constitutional Constitutional: Denies fatigue, fever(s), poor appetite, weight gain or weight loss Gastrointestinal Gastrointestinal: Denies belching, bloating, change in bowel habits, change in stool character, chewing difficulty, coffee ground emesis, constipation, cramping, diarrhea, dyspepsia, dysphagia, early satiety, excessive flatus, fecal incontinence, heartburn, hematemesis, hematochezia, hemorrhoids, loose stools, melena, nausea, odynophagia, rectal bleeding, tenesmus, vomiting or weight changes Patient's Goals Of Care . What would you like to achieve or improve as a result of your hospital stay?: none Vital Signs Vital Signs Vital Signs: 06/26/25 05:58 06/26/25 05:58 06/26/25 05:58 Temperature 99 F Temperature Source Temporal Pulse Rate 84 Respiratory Rate 18 Respiratory Pattern Normal Blood Pressure 117/83 H Blood Pressure Mean 94 Blood Pressure Source Monitor Blood Pressure Position Semi-Fowlers Blood Pressure Location Left Arm Baseline BP 117/83 Pulse Ox 100 Oxygen Delivery Method Room Air 06/26/25 06:20 Temperature 99 F Temperature Source Pulse Rate 84 Respiratory Rate 18 Respiratory Pattern Blood Pressure 117/83 H Blood Pressure Mean Blood Pressure Source Blood Pressure Position Blood Pressure Location Baseline BP Pulse Ox 100 Oxygen Delivery Method Room Air Weight Weight: 167 lb 8.821 oz Body Mass Index (BMI) 22.1 Physical Exam Const alert, oriented x3, no apparent distress and healthy appearing General Appearance: cooperative GI normal to inspection, nondistended, normoactive bowel sounds, soft to palpation, non-tender and non-distended Percussion: normal to percussion Rectal Exam: deferred Assessment & Plan Assessment/Plan (1) Crohn disease: PLAN: Assessment and Plan Assessment and Plan (1) Crohn disease: Status: Acute Plan: Crohn?s disease : History of Crohn?s disease with recent flare-like episode and ongoing biologic infusion schedule. - Continue scheduled infusion therapy per existing plan (patient had infusion last week; next scheduled next week; then every six months). - Check Stelara (ustekinumab) levels. - Obtain Stelara antibody testing. Colonic narrowing with stool impaction : CT reportedly showed inflammation around a stool ball behind a colonic narrowing; plan for endoscopic management. - Recommend nightly pre-procedure lubrication: approximately 1 ounce mineral oil plus 1 ounce olive oil (2 ounces total) for about two weeks. - Schedule endoscopic removal via colonoscopy-like procedure with dilation (same-day procedure, longer than typical colonoscopy). - Prefer to avoid surgery if possible. Typhlitis (cecal inflammation) : Typhlitis discussed as inflammation related to stool impaction; previously treated with antibiotics after ER call. - No new specific treatment discussed today beyond planned endoscopic removal; antibiotics course already completed. Electrolyte depletion symptoms (tetany) during vomiting : Hand numbness and inability to move during vomiting attributed to electrolyte depletion (calcium, potassium, magnesium), consistent with tetany. - Order labs to assess electrolytes: magnesium, phosphorus, potassium. Leukocytosis (prior elevated white blood cell count) : White blood cell count previously elevated; reassessment planned. - Order complete blood count (CBC) to reassess leukocytosis. Follow-up : Return visit planning. - Go to the lab today for blood work: CBC, CMP, ESR, magnesium, phosphorus, potassium, Stelara level, and Stelara antibodies. - Schedule procedure for stool ball removal as soon as feasible based on patient?s scheduling constraints. - Arrange follow-up in four months. Orders: Orders CBC W/Diff, Automated Today K50.90 - Crohn's disease, unspecified, without complications Magnesium Today K50.90 - Crohn's disease, unspecified, without complications Phosphorus Today K50.90 - Crohn's disease, unspecified, without complications Comprehensive Metabolic Profil Today K50.90 - Crohn's disease, unspecified, without complications Erythrocyte Sed Rate Today K50.90 - Crohn's disease, unspecified, without complications CRP Today K50.90 - Crohn's disease, unspecified, without complications [facility] Misc. Today K50.90 - Crohn's disease, unspecified, without complications Medications: New ustekinumab (Stelara) 90 mg subcut Q5W 1 mL 7RF ]
--- NOTE | 2025-06-26 08:13 | OP.COLON_ITS ---
Patient Name: Mc Goodson Procedure Date: 06/26/2025 6:04 AM Date of : 2000 Age: 24 Procedure: Colonoscopy Indications: Abdominal pain in the right lower quadrant, Crohn's disease of the small bowel and colon, Abnormal CT of the GI tract Providers: Hunter Ceja DO Referring MD: Nati Vasquez Medicines: Monitored Anesthesia Care Patient Profile: This is a 24 year old male. Refer to note in patient chart for documentation of history and physical. Last Colonoscopy: 6 months ago. Complications: No immediate complications. Procedure: Pre-Anesthesia Assessment: - Prior to the procedure, a History and Physical was performed, and patient medications and allergies were reviewed. The patient is competent. The risks and benefits of the procedure and the sedation options and risks were discussed with the patient. All questions were answered and informed consent was obtained. Patient identification and proposed procedure were verified by the physician in the pre-procedure area. Mental Status Examination: alert and oriented. Airway Examination: normal oropharyngeal airway and neck mobility. Respiratory Examination: clear to auscultation. CV Examination: normal. Prophylactic Antibiotics: The patient does not require prophylactic antibiotics. Prior Anticoagulants: The patient has taken no anticoagulant or antiplatelet agents. ASA Grade Assessment: II - A patient with mild systemic disease. After reviewing the risks and benefits, the patient was deemed in satisfactory condition to undergo the procedure. The anesthesia plan was to use monitored anesthesia care (MAC). Immediately prior to administration of medications, the patient was re-assessed for adequacy to receive sedatives. The heart rate, respiratory rate, oxygen saturations, blood pressure, adequacy of pulmonary ventilation, and response to care were monitored throughout the procedure. The physical status of the patient was re-assessed after the procedure. After I obtained informed consent, the scope was passed under direct vision. Throughout the procedure, the patient's blood pressure, pulse, and oxygen saturations were monitored continuously. The pediatric colonoscope was introduced through the anus and advanced to the cecum, identified by appendiceal orifice and ileocecal valve. The colonoscopy was performed without difficulty. The patient tolerated the procedure well. The quality of the bowel preparation was adequate. Anatomical landmarks were photographed. Scope In: 6:38:15 AM Scope Withdrawal Time 1 hour 18 minutes 37 seconds Scope Out: 8:03:09 AM Total Procedure Duration Time 1 hour 24 minutes 54 seconds Findings: The perianal and digital rectal examinations were normal. A benign-appearing, intrinsic severe stenosis was found in the proximal ascending colon and was traversed after dilation. A TTS dilator was passed through the scope. Dilation with an 18 mm colonic balloon dilator was performed. The dilation site was examined and showed moderate mucosal disruption. Estimated blood loss was minimal. Solid stool was found in the cecum, interfering with visualization. Coagulation for tissue destruction using monopolar probe was unsuccessful. Impression: - Stricture in the proximal ascending colon. Dilated. - Stool in the cecum. Treatment not successful. Treated with a monopolar probe. - No specimens collected. Recommendation: - Discharge patient to home. - Resume previous diet. - Continue present medications. - Repeat colonoscopy in 2 months for retreatment. - Augmentin 875/125 twice a day x 2 weeks Procedure Code(s): --- Professional --- 12589, Colonoscopy, flexible; with ablation of tumor(s), polyp(s), or other lesion(s) (includes pre- and post-dilation and guide wire passage, when performed) CPT copyright 2021 [employer]. All rights reserved. The codes documented in this report are preliminary and upon adult specialist review may be revised to meet current compliance requirements. Hunter Ceja DO 06/26/2025 8:12:38 AM This report has been signed electronically. Number of Addenda: 0 Note Initiated On: 06/26/2025 6:04 AM
--- NOTE | 2025-06-26 08:14 | OP.PROVAT_ITS ---
06/26/2025 Nati Vasquez Re : Colonoscopy procedure for Mc Goodson Dear Loreta This procedure was performed on Thursday, June 26, 2025. My impressions and recommendations are as follows: Impressions : - Stricture in the proximal ascending colon. Dilated. - Stool in the cecum. Treatment not successful. Treated with a monopolar probe. - No specimens collected. Recommendations : - Discharge patient to home. - Resume previous diet. - Continue present medications. - Repeat colonoscopy in 2 months for retreatment. - Augmentin 875/125 twice a day x 2 weeks My findings are described in the full procedure note, which is enclosed. If I can be of further assistance, please feel free to contact me at . Sincerely, Hunter Ceja, 06/26/2025 8:12:38 AM This report has been signed electronically.
--- NOTE | 2025-06-26 08:20 | PCM.POST.ANE ---
Anesthesia: Postop Eval I Current Vital Signs Temperature: 97.1 F Pulse Rate: 99 Blood Pressure: 125/90 Respiratory Rate: 20 Pulse Ox: 100 Oxygen Delivery Method: Room Air Assessment Airway patent: Yes Spontaneous unlabored respirations: Yes Mental status: Awake and Calm nausea: No Vomiting: No Anesthesia Complication: No Fluid Hydration Crystalloid volume administer (ml): 1,200 Total IV fluid infused: 1,200 Progress Note Anesthesia document: Postop Eval 1 completed: Yes
--- NOTE | 2025-06-26 12:27 | POSTOPAN2_ITS ---
Anesthesia Postop Eval I Sum Postop Eval Completion status Anesthesia document: Postop Eval 1 completed: Yes Anesthesia Postop Eval I Summary Anesthesia Postop Eval I Summary: Anesthesia Postop Eval I: Assessment Summary Airway patent Yes 06/26/25 08:20 [email or web address] [email or web address] Spontaneous unlabored Yes 06/26/25 08:20 GROCERY [email or web address].[email or web address] respirations Mental status Awake,Calm 06/26/25 08:20 GROCERY [email or web address].[email or web address] nausea No 06/26/25 08:20 GROCERY CASHIER.[email or web address] Vomiting No 06/26/25 08:20 GROCERY [email or web address].[email or web address] Anesthesia Postop Eval I: Fluid Summary Crystalloid volume administer 1,200 06/26/25 08:20 GROCERY [email or web address] (ml) Colloids volume administered ( ml) Blood Product volume administered (ml) Total IV fluid infused 1,200 06/26/25 08:20 GROCERY [email or web address].[email or web address] Anesthesia Postop Eval I: Summary Notes Anesthesia Complication No 06/26/25 08:20 GROCERY [email or web address].[email or web address] Anesthesia Complication Comment: Post-operative progress note Anesthesia: Postop Eval II Evaluation Mental status: Awake and Calm Pain Level: 0 nausea: No Vomiting: No Complications Anesthesia Complication: No
--- NOTE | 2025-06-26 12:27 | PCM.POSTANE2 ---
Anesthesia Postop Eval I Sum Postop Eval Completion status Anesthesia document: Postop Eval 1 completed: Yes Anesthesia Postop Eval I Summary Anesthesia Postop Eval I Summary: Anesthesia Postop Eval I: Assessment Summary Airway patent Yes 06/26/25 08:20 SENIOR ENVIRONMENTAL PRACTICE LEADER.[email or web address] Spontaneous unlabored Yes 06/26/25 08:20 SENIOR ENVIRONMENTAL PRACTICE LEADER.[email or web address] respirations Mental status Awake,Calm 06/26/25 08:20 SENIOR ENVIRONMENTAL PRACTICE LEADER.[email or web address] nausea No 06/26/25 08:20 SENIOR ENVIRONMENTAL PRACTICE LEADER.[email or web address] Vomiting No 06/26/25 08:20 SENIOR ENVIRONMENTAL PRACTICE LEADER.[email or web address] Anesthesia Postop Eval I: Fluid Summary Crystalloid volume administer 1,200 06/26/25 08:20 SENIOR ENVIRONMENTAL PRACTICE LEADER.GDOTT (ml) Colloids volume administered ( ml) Blood Product volume administered (ml) Total IV fluid infused 1,200 06/26/25 08:20 SENIOR ENVIRONMENTAL PRACTICE LEADER.[email or web address] Anesthesia Postop Eval I: Summary Notes Anesthesia Complication No 06/26/25 08:20 SENIOR ENVIRONMENTAL PRACTICE LEADER.GDOTT Anesthesia Complication Comment: Post-operative progress note Anesthesia: Postop Eval II Evaluation Mental status: Awake and Calm Pain Level: 0 nausea: No Vomiting: No Complications Anesthesia Complication: No
== END 2025-06-26 08:57 | disposition home or self-care (01) ==
LOC: EN 05:31 → AC 05:31
PROVIDERS: PCP Nurse Practitioner Family; Referring Provider Nurse Practitioner Family; Visit Provider Internal Medicine Gastroenterology
PROC: 0DJD8ZZ Inspection of Lower Intestinal Tract, Via Natural or Artificial Opening Endoscopic (ICD-10-PCS; CPT 45378; principal; 2025-06-26 06:25)
DX: K56.609 Unspecified intestinal obstruction, unspecified as to partial versus complete obstruction (principal); K50.90 Crohn's disease, unspecified, without complications; K21.9 Gastro-esophageal reflux disease without esophagitis; Z79.899 Other long term (current) drug therapy
CPT/HCPCS: 45386; J2405